=== PATIENT | male | born 1935 | race Two or more races ===

== ENCOUNTER 2020-11-06 15:12 | Inpatient (IN) | payer BC ==
[~2020-11-06] VITALS: Ht 182.9 cm; Wt 86.2 kg
[2020-11-06] VITALS (7 sets, daily range): BP systolic 117–148; BP diastolic 64–96
[~2020-11-06 15:12] MED LIST: LISINOPRIL2.5 MG ORAL
[2020-11-06] MEDS ORDERED: dexAMETHasone 10mg/ml Inj IV ONE (15:15)
--- NOTE | 2020-11-06 15:30 | NUR ---
ED Nurse Note: pt SHLOMO KRYSTAL RA 9 from home for SOB, fevers and body aches x 2 weeks. EMS report that pt is COVID +, pt is noted to be satting at 89-90% on a NRB mask with 15L O2. pt is tachypneic and appears to be lethargic.
--- NOTE | 2020-11-06 15:32 | NUR ---
ED Nurse Note: Xray at bedside.
--- NOTE | 2020-11-06 15:39 | NUR ---
ED Nurse Note: Called RT Isaac for BiPAP and ABG.
--- NOTE | 2020-11-06 15:46 | NUR ---
ED Nurse Note: RT at pt bedside placing pt on bi-pap
[2020-11-06 16:18] LABS: HEMATOCRIT 44.9 % (42.0-52.0); HEMOGLOBIN 14.9 G/DL (14.2-18.0); MEAN CORPUSCULAR VOLUME 92 FL (80-99); PLATELET COUNT 351 K/UL (150-450); RED BLOOD COUNT 4.88 M/UL (4.70-6.10); RED CELL DISTRIBUTION WIDTH 13.5 % (11.6-14.8); WHITE BLOOD COUNT 10.3 K/UL (4.8-10.8)
[2020-11-06 16:20] LABS: BASOPHILS % (AUTO) 0.1 % (0.0-2.0); LYMPHOCYTES % (AUTO) 9.1 % (20.0-45.0); MONOCYTES % (AUTO) 3.7 % (1.0-10.0); NEUTROPHILS % (AUTO) 87.2 % (45.0-75.0)
[2020-11-06 16:28] LABS: CALCIUM 8.3 MG/DL (8.5-10.1); CREATININE 2.1 MG/DL (0.55-1.30)
--- NOTE | 2020-11-06 16:35 | Diagnostic Imaging Report ---
Indication: Shortness of breath Technique: One view of the chest Comparison: none Findings: There is bilateral extensive diffuse interstitial and airspace disease. The heart is enlarged. The pleural spaces are clear. Impression: Bilateral diffuse interstitial and airspace disease. This may represent multifocal infiltrates pneumonia, or could represent pulmonary edema, among many other possibilities. Correlate with clinical findings
[2020-11-06 16:38] LABS: ALBUMIN 1.7 G/DL (3.4-5.0); ALBUMIN/GLOBULIN RATIO 0.3 (1.0-2.7); BILIRUBIN,TOTAL 2.1 MG/DL (0.2-1.0); CKMB 1.9 NG/ML (0.0-3.6)
[2020-11-06 17:00] LABS: BILIRUBIN,DIRECT 1.4 MG/DL (0.0-0.3)
[2020-11-06 17:09] LABS: INR 1.2 (0.9-1.1)
--- NOTE | 2020-11-06 17:27 | Emergency Room Report ---
History of Present Illness General Chief Complaint: Dyspnea/Respdistress Source: Patient, EMS Present Illness HPI This patient is brought in by EMS from home. The patient has had 2 weeks of fatigue, body aches and generalized weakness. He has also developed shortness of breath over the past few days. Patient presents during the COVID-19 pandemic. It is unclear whether this patient has been previously diagnosed with COVID-19. The patient is a poor historian and there is a language barrier. Despite translation it is still difficult to obtain a history from this patient. Allergies: Coded Allergies: No Known Allergies (Unverified , 11/06/20) COVID-19 Screening Contact w/high risk pt: No Experienced COVID-19 symptoms?: Yes COVID-19 Testing performed DOG WARDEN: No Patient History Past Medical History: see triage record, DM, HTN Social History: Denies: smoking, alcohol use, drug use Reviewed Nursing Documentation: PMH: Agreed; PSxH: Agreed Nursing Documentation-PMH Past Medical History: No History, Except For Hx Hypertension: Yes Hx Diabetes: Yes Review of Systems All Other Systems: negative except mentioned in HPI Physical Exam Vital Signs Date Time Temp Pulse Resp B/P (MAP) Pulse Ox O2 Delivery O2 Flow Rate FiO2 11/06/20 15:07 98.2 118 18 130/80 (97) 86 Non-Rebreather 11/06/20 15:49 15.0 11/06/20 15:55 100 Sp02 EP Interpretation: reviewed, abnormal - 85% on NRB General Appearance: no apparent distress, alert, GCS 15, non-toxic Head: normocephalic, atraumatic Eyes: bilateral eye normal inspection ENT: hearing grossly normal, normal pharynx, no angioedema, normal voice Neck: full range of motion, supple/symm/no masses Respiratory: chest non-tender, lungs clear, normal breath sounds, no respiratory distress, no retraction, no accessory muscle use Cardiovascular #1: no edema, tachycardia Gastrointestinal: normal bowel sounds, non tender, soft, non-distended, no guarding, no rebound Rectal: deferred Musculoskeletal: back normal, normal range of motion, gait/station normal, non- tender Neurologic: alert, motor strength/tone normal, oriented x3, sensory intact, r esponsive, speech normal Psychiatric: judgement/insight normal, memory normal, mood/affect normal, no suicidal/homicidal ideation Skin: no rash, normal color Medical Decision Making Diagnostic Impression: Primary Impression: COVID-19 Additional Impressions: Hypoxemia ARDS (adult respiratory distress syndrome) Elevated troponin Renal failure ER Course This patient has COVID-19 adult respiratory distress syndrome. He has pulmonary edema identified on chest x-ray. He is also hypoxemic with oxygen saturations in the mid 80s on room air. He was given BiPAP and responded well with oxygen saturations in the high 90s. He did not require intubation in the emergency department. He was given Decadron IV and Lovenox IM. He will be admitted to the ICU for further management of his COVID-19 infection and pneumonia. The patient's laboratory findings were also consistent with significant dehydration. I suspect the patient is dehydrated given that he has had ongoing illness for the past 2 weeks. Although, aggressive IV fluid resuscitation is not recommended in COVID-19, I did give the patient some gentle IV fluids. This patient is critically ill. This patient required complex medical decision- making, aggressive intervention, extensive laboratory workup and monitoring. Critical care time: 40 minutes. This patient was evaluated in the context of the global COVID-19 pandemic, which necessitated consideration that the patient might be at risk for infection with the [id number] virus that causes COVID-19. Institutional protocols and algorithms that pertain to the evaluation of patients at risk for COVID-19 and the state of rapid change based on information released by multiple regulatory bodies including the CDC and federal and state organizations. These policies and algorithms were followed during the patient's care in the ED. Laboratory Tests Test 11/06/20 15:35 White Blood Count 10.3 K/UL (4.8-10.8) Red Blood Count 4.88 M/UL (4.70-6.10) Hemoglobin 14.9 G/DL (14.2-18.0) Hematocrit 44.9 % (42.0-52.0) Mean Corpuscular Volume 92 FL (80-99) Mean Corpuscular Hemoglobin 30.6 PG (27.0-31.0) Mean Corpuscular Hemoglobin Concent 33.2 G/DL (32.0-36.0) Red Cell Distribution Width 13.5 % (11.6-14.8) Platelet Count 351 K/UL (150-450) Mean Platelet Volume 6.8 FL (6.5-10.1) Neutrophils (%) (Auto) 87.2 % (45.0-75.0) H Lymphocytes (%) (Auto) 9.1 % (20.0-45.0) L Monocytes (%) (Auto) 3.7 % (1.0-10.0) Eosinophils (%) (Auto) 0.0 % (0.0-3.0) Basophils (%) (Auto) 0.1 % (0.0-2.0) Prothrombin Time 12.7 SEC (9.30-11.50) H Prothrombin Time INR 1.2 (0.9-1.1) H Activated Partial Thromboplast Time 30 SEC (23-33) D-Dimer 11.20 mg/L FEU (0.00-0.49) H Sodium Level 142 MMOL/L (136-145) Potassium Level 5.0 MMOL/L (3.5-5.1) Chloride Level 106 MMOL/L (98-107) Carbon Dioxide Level 24 MMOL/L (21-32) Anion Gap 12 mmol/L (5-15) Blood Urea Nitrogen 78 mg/dL (7-18) H Creatinine 2.1 MG/DL (0.55-1.30) H Estimated Glomerular Filtration Rate 30.2 mL/min (>60) Glucose Level 316 MG/DL (74-106) H Lactic Acid Level 4.70 mmol/L (0.4-2.0) H Calcium Level 8.3 MG/DL (8.5-10.1) L Ferritin 1050 NG/ML (8-388) H Total Bilirubin 2.1 MG/DL (0.2-1.0) H Direct Bilirubin 1.4 MG/DL (0.0-0.3) H Aspartate Amino Transferase (AST) 73 U/L (15-37) H Alanine Aminotransferase (ALT) 57 U/L (12-78) Alkaline Phosphatase 246 U/L (46-116) H Lactate Dehydrogenase 383 U/L (81-234) H Total Creatine Kinase 160 U/L (26-308) Creatine Kinase MB 1.9 NG/ML (0.0-3.6) Creatine Kinase MB Relative Index 1.1 Troponin I 0.073 ng/mL (0.000-0.056) C-Reactive Protein, Quantitative 53.4 mg/dL (0.00-0.90) H Pro-B-Type Natriuretic Peptide Pending Total Protein 7.6 G/DL (6.4-8.2) Albumin 1.7 G/DL (3.4-5.0) L Globulin 5.9 g/dL Albumin/Globulin Ratio 0.3 (1.0-2.7) L Lipase 120 U/L (73-393) Microbiology Date/Time Source Procedure Growth Status 11/06/20 15:25 Nasopharynx SARS-CoV-2 RdRp Gene Assay - Final Complete Laboratory Tests Test 11/06/20 15:35 White Blood Count 10.3 K/UL (4.8-10.8) Red Blood Count 4.88 M/UL (4.70-6.10) Hemoglobin 14.9 G/DL (14.2-18.0) Hematocrit 44.9 % (42.0-52.0) Mean Corpuscular Volume 92 FL (80-99) Mean Corpuscular Hemoglobin 30.6 PG (27.0-31.0) Mean Corpuscular Hemoglobin Concent 33.2 G/DL (32.0-36.0) Red Cell Distribution Width 13.5 % (11.6-14.8) Platelet Count 351 K/UL (150-450) Mean Platelet Volume 6.8 FL (6.5-10.1) Neutrophils (%) (Auto) 87.2 % (45.0-75.0) H Lymphocytes (%) (Auto) 9.1 % (20.0-45.0) L Monocytes (%) (Auto) 3.7 % (1.0-10.0) Eosinophils (%) (Auto) 0.0 % (0.0-3.0) Basophils (%) (Auto) 0.1 % (0.0-2.0) Prothrombin Time Pending Prothrombin Time INR Pending Activated Partial Thromboplast Time Pending D-Dimer Pending Sodium Level 142 MMOL/L (136-145) Potassium Level 5.0 MMOL/L (3.5-5.1) Chloride Level 106 MMOL/L (98-107) Carbon Dioxide Level 24 MMOL/L (21-32) Anion Gap 12 mmol/L (5-15) Blood Urea Nitrogen 78 mg/dL (7-18) H Creatinine 2.1 MG/DL (0.55-1.30) H Estimated Glomerular Filtration Rate 30.2 mL/min (>60) Glucose Level 316 MG/DL (74-106) H Lactic Acid Level 4.70 mmol/L (0.4-2.0) H Calcium Level 8.3 MG/DL (8.5-10.1) L Ferritin 1050 NG/ML (8-388) H Total Bilirubin 2.1 MG/DL (0.2-1.0) H Direct Bilirubin 1.4 MG/DL (0.0-0.3) H Aspartate Amino Transferase (AST) 73 U/L (15-37) H Alanine Aminotransferase (ALT) 57 U/L (12-78) Alkaline Phosphatase 246 U/L (46-116) H Lactate Dehydrogenase 383 U/L (81-234) H Total Creatine Kinase 160 U/L (26-308) Creatine Kinase MB 1.9 NG/ML (0.0-3.6) Creatine Kinase MB Relative Index 1.1 Troponin I 0.073 ng/mL (0.000-0.056) C-Reactive Protein, Quantitative Pending Pro-B-Type Natriuretic Peptide Pending Total Protein 7.6 G/DL (6.4-8.2) Albumin 1.7 G/DL (3.4-5.0) L Globulin 5.9 g/dL Albumin/Globulin Ratio 0.3 (1.0-2.7) L Lipase 120 U/L (73-393) Microbiology Date/Time Source Procedure Growth Status 11/06/20 15:25 Nasopharynx SARS-CoV-2 RdRp Gene Assay - Final Complete EKG Diagnostic Results Rate: tachycardiac Rhythm: other - S.tachycardia ST Segments: no acute changes Rhythm Strip Diag. Results EP Interpretation: yes Rate: 110's Rhythm: no PVC's, no ectopy, other - S.tachycardia Chest X-Ray Diagnostic Results Chest X-Ray Diagnostic Results : Chest X-Ray Ordered: Yes # of Views/Limited/Complete: 1 View Indication: Shortness of Breath EP Interpretation: Yes Interpretation: other - Diffuse patchy opacities Impression: Other - Pulmonary edema/diffuse interstitial and airspace disease. Electronically Signed by: Mary Grace Garcia DO Last Vital Signs Date Time Temp Pulse Resp B/P (MAP) Pulse Ox O2 Delivery O2 Flow Rate FiO2 11/06/20 16:26 118 35 146/93 98 Bi-pap 11/06/20 16:03 100 11/06/20 15:59 15.0 11/06/20 15:07 98.2 Disposition: ADMITTED INPATIENT Condition: Critical Referrals: RICHY CANTOR [facility],REFERRING (PCP) Mray Grace Garcia DO Nov 06, 2020 17:27
[2020-11-06] MEDS ORDERED: Azithromycin 500 MG in NS 275 ML IVPB ONE (17:30)
[2020-11-06] MEDS ORDERED: Enoxaparin 100mg Inj SUBQ SCH (17:30)
[2020-11-06] MEDS: Sodium Chloride 550 ML IV SCH ×2 (17:36→20:02)
--- NOTE | 2020-11-06 19:00 | NUR ---
ED Nurse Note: pt appears to be resting in bed, he remains on Bi-Pap at this time, IV fluids and abx infusing per ERMD orders. pt's vital signs stable at this time, HR is 94. will cont to monitor and prepare for admission
[2020-11-06] MEDS ORDERED: Flumazenil 0.5mg/5ml Inj IV PRN (20:00)
[2020-11-06] MEDS ORDERED: Naloxone 0.4mg/ml Inj IVP PRN (20:00)
--- NOTE | 2020-11-06 20:08 | History & Physical ---
History of Present Illness General Date patient seen: Nov 06, 2020 Time patient seen: 20:07 Reason for Hospitalization: Dyspnea/Respdistress Present Illness HPI 84 yo M with PMHX of DM2, HTN, non compliance, ? CKD presented to ER for worsening SOB dyspnea, and general body weakness over the last 2 wks. denied any diarrhea, chest pain or muscle weakness, no sign of body trauma in ED pt was a given IV bolus, hyppxemia in 80s, pt was put on BIPAP and improved and admitted to ICU for further care PMH DM HTN PSH none SHX: smoke x 15 yrs, druink ocaasionally and no ivda Allergies: Coded Allergies: No Known Allergies (Unverified , 11/06/20) COVID-19 Screening Contact w/high risk pt: Yes Experienced COVID-19 symptoms?: Yes Coronavirus symptoms experienc: Fever (T>100.4F or >38C), Fatigue, Shortness of Breath, Cough, Muscle or Body Aches Medication History Scheduled Lisinopril* (Lisinopril*), Unknown Dose ORAL DAILY, (Reported) Patient History Limited by: language barrier, medical condition History Provided By: Patient Healthcare decision maker N Resuscitation status Advanced Directive on File Review of Systems Review of Symptoms General ROS: fever weakness Psychological ROS: no depression or mood changes, no memory loss Ophthalmic ROS: no visual changes or eye irritation ENT ROS: no nasal congestion, hearing loss, dizziness Allergy and Immunology ROS: no allergic symptoms or urticaria Hematological and Lymphatic ROS: no swollen glands, unusual bleeding or bruising Endocrine ROS: no polyuria, polydipsia, weight changes, temperature intolerance Respiratory ROS: shortness of breath, or wheezing Cardiovascular ROS: no chest pain or dyspnea on exertion Gastrointestinal ROS: denies abdominal pain, bright red blood in stool. Musculoskeletal ROS: no myalgias or arthralgias Neurological ROS: no TIA or stroke symptoms Dermatological ROS: no new or changing skin lesions, rashes or pruritis Physical Exam Physical Exam General appearance: alert, cooperative,in dsitress Head: Normocephalic, without obvious abnormality, atraumatic Eyes: conjunctivae/corneas clear. PERRL, EOM's intact. Fundi benign Throat: Lips, mucosa, and tongue normal. Teeth and gums normal Neck: supple, symmetrical, trachea midline, no adenopathy, thyroid: not enlarged, symmetric, no tenderness/mass/nodules, no carotid bruit and no JVD Lungs: clear to auscultation bilaterally Heart: regular rate and rhythm, S1, S2 normal, no murmur, click, rub or gallop Abdomen: soft, non-tender. Bowel sounds normal. No masses, no organomegaly Extremities: extremities normal, atraumatic, no cyanosis or edema Pulses: 2+ Skin: Skin color, texture, turgor normal. No rashes or lesions, no LE edema Neurologic: Grossly normal Last 24 Hour Vital Signs Date Time Temp Pulse Resp B/P (MAP) Pulse Ox O2 Delivery O2 Flow Rate FiO2 11/06/20 19:45 94 28 100 100 11/06/20 18:39 98.2 107 44 129/96 97 Bi-pap 15.0 100 11/06/20 17:38 98.2 106 27 148/79 98 Bi-pap 15.0 100 11/06/20 16:26 118 35 146/93 98 Bi-pap 11/06/20 16:03 98 Bi-pap 100 11/06/20 15:59 113 42 Non-Rebreather 15.0 11/06/20 15:55 109 42 100 100 11/06/20 15:49 113 42 90 Non-Rebreather 15.0 11/06/20 15:07 98.2 118 18 130/80 (97) 86 Non-Rebreather Laboratory Tests Test 11/06/20 15:35 11/06/20 17:10 White Blood Count 10.3 K/UL (4.8-10.8) Red Blood Count 4.88 M/UL (4.70-6.10) Hemoglobin 14.9 G/DL (14.2-18.0) Hematocrit 44.9 % (42.0-52.0) Mean Corpuscular Volume 92 FL (80-99) Mean Corpuscular Hemoglobin 30.6 PG (27.0-31.0) Mean Corpuscular Hemoglobin Concent 33.2 G/DL (32.0-36.0) Red Cell Distribution Width 13.5 % (11.6-14.8) Platelet Count 351 K/UL (150-450) Mean Platelet Volume 6.8 FL (6.5-10.1) Neutrophils (%) (Auto) 87.2 % (45.0-75.0) H Lymphocytes (%) (Auto) 9.1 % (20.0-45.0) L Monocytes (%) (Auto) 3.7 % (1.0-10.0) Eosinophils (%) (Auto) 0.0 % (0.0-3.0) Basophils (%) (Auto) 0.1 % (0.0-2.0) Prothrombin Time 12.7 SEC (9.30-11.50) H Prothromb Time International Ratio 1.2 (0.9-1.1) H Activated Partial Thromboplast Time 30 SEC (23-33) D-Dimer 11.20 mg/L FEU (0.00-0.49) H Sodium Level 142 MMOL/L (136-145) Potassium Level 5.0 MMOL/L (3.5-5.1) Chloride Level 106 MMOL/L (98-107) Carbon Dioxide Level 24 MMOL/L (21-32) Anion Gap 12 mmol/L (5-15) Blood Urea Nitrogen 78 mg/dL (7-18) H Creatinine 2.1 MG/DL (0.55-1.30) H Estimat Glomerular Filtration Rate 30.2 mL/min (>60) Glucose Level 316 MG/DL (74-106) H Hemoglobin A1c Pending Lactic Acid Level 4.70 mmol/L (0.4-2.0) H 3.70 mmol/L (0.66-2.22) H Calcium Level 8.3 MG/DL (8.5-10.1) L Ferritin 1050 NG/ML (8-388) H Total Bilirubin 2.1 MG/DL (0.2-1.0) H Direct Bilirubin 1.4 MG/DL (0.0-0.3) H Aspartate Amino Transf (AST/SGOT) 73 U/L (15-37) H Alanine Aminotransferase (ALT/SGPT) 57 U/L (12-78) Alkaline Phosphatase 246 U/L (46-116) H Lactate Dehydrogenase 383 U/L (81-234) H Total Creatine Kinase 160 U/L (26-308) Creatine Kinase MB 1.9 NG/ML (0.0-3.6) Creatine Kinase MB Relative Index 1.1 Troponin I 0.073 ng/mL (0.000-0.056) C-Reactive Protein, Quantitative 53.4 mg/dL (0.00-0.90) H Pro-B-Type Natriuretic Peptide Pending Total Protein 7.6 G/DL (6.4-8.2) Albumin 1.7 G/DL (3.4-5.0) L Globulin 5.9 g/dL Albumin/Globulin Ratio 0.3 (1.0-2.7) L Lipase 120 U/L (73-393) Microbiology Date/Time Source Procedure Growth Status 11/06/20 18:02 Rectum Received 11/06/20 15:25 Nasopharynx SARS-CoV-2 RdRp Gene Assay - Final Complete Height (Feet): 6 Height (Inches): 1.00 Weight (Pounds): 230 Medications Current Medications Medications (Trade) Dose Ordered Sig/I[place]let Route PRN Reason Start Time Stop Time Status Last Admin Dose Admin Sodium Chloride 550 ml @ 200 mls/hr Q2H45M IV 11/06/20 17:30 12/06/20 17:29 11/06/20 17:36 Assessment/Plan Status: stable, not improved Assessment/Plan: 84 yo M w DM2, HTN, ? CKD admitted for Covid19 PNA with SAMEER # acute hypoxemia Resp failure 2/2 covid PNA requiring BIPAP # Covid PNA # Lactic acid elevation # SAMEER vs. SAMEER on CKD, likely prerenal vs. # Dehydration # Malnutrition #HTN, current normotensive # elevated D dimer # Trop elevated # DM2 uncontrolled Plan - BIPAP - prone as tolerate - s/p IVF bolus in ED, will keep lung dry as much as possible - decadrone 6mg iv daily - azithromycin\ - ISS and levemir 10 start - daily lab - pul consult - renal consult - card consult - lovenox daily for now, consider bid, deferred to Pul - ICU admission - i/o monitor, montilla cath IVF none DVT lovenox, GI prophy w PPI FC MIPS Hospital declaration INPATIENT level of care is warranted for this patient because patient is a 84 yo with severe hypoxemia, and need ICU care. Disposition: Once the patient is stable to leave the hospital, I anticipate the patient will likely be discharged to the following environment, 4 5 days or longer I spent 45 minutes on this patient's case, and 40 minutes was dedicated to counseling and/or care coordination. MIPS (Merit-based Incentive Payment System) Applicable CPT: 57742, 22271 CHECK ALL THAT ARE MET: xMeasure #5 (CHF): All ages. Prescribe MANUEL/ARB upon discharge for patients with left ventricular systolic dysfunction. If not, the reason is clearly documented in the medical chart. x Measure #47 Advance care plan or surrogate decision maker documented in the medical record. x Measure #130 The provider has documented, updated, or reviewed the patients current medication list and has documented it in the patients note. xMeasure #374 (All): Send report to referring provider. Measure #407(Sepsis due to MSSA bacteremia): Age 18+ Patient treated with a beta-lactam antibiotic (Nafcillin, Oxacillin or Cefazolin) as definitive therapy. MEDICAL COMPLEXITY High complexity medical decision making (need 2/3 categories) Problem - need 4 points Acute/new problem with new plan for workup (4 points, 1 max) Acute/new problem without additional workup (3 points, 1 max) Unstable chronic problem actively being managed (2 point each, 2 max) Stable chronic problem actively being managed (1 point each, 2 max) Self-limited/transient process (constipation, muscle ache, etc) (1 point each, 2 max) Data - need 4 points Reviewed labs/imaging studies (1 points, 2 max) Independent review of imaging (EKG, xrays, etc) (2 points, 2 max) Discussed case with consult/other MD/RN (2 points, 2 max) High Risk - qualify if have one of the following: Severe exacerbation of acute problem, acute mental status change, IV narcotics, monitoring drug levels (vancomycin, INR, tacrolimus etc) Anamika Reid D.O. Nov 06, 2020 20:07
[2020-11-06] MEDS ORDERED: Enoxaparin 40mg Inj SUBQ SCH (20:15)
--- NOTE | 2020-11-06 20:34 | NUR ---
ED Nurse Note: report given to LYNDA Rubi
--- NOTE | 2020-11-06 20:45 | NUR ---
NURSE NOTES: Received pt from ER due to hypoxia COVID +, on BIPAP 10/5 back up rate 12 with 100% fio2. AOX4, speaks maltese most of the time, SR-ST low 100sBp stable, 02 sat >95 . Heplock left AC patent to flushes . Will continue to monitor.
[2020-11-06] MEDS ORDERED: Insulin Human Regular 100units/ml 3ml IV SCH (21:00)
[2020-11-06] MEDS: NovoLOG Insulin Flexpen SUBQ SCH (21:51)
--- NOTE | 2020-11-06 22:00 | NUR ---
NURSE NOTES: Jeanette Baeza was here and evaluated pt with orders given.
--- NOTE | 2020-11-06 23:00 | NUR ---
NURSE NOTES: FR 16 montilla cath was inserted with yellowish urine coming out.
--- NOTE | 2020-11-06 23:00 | NUR ---
NURSE NOTES: Had x1 soft grayish stools. Cleaned up pt,
[2020-11-07] VITALS (34 sets, daily range): BP systolic 92–146; BP diastolic 38–82
--- NOTE | 2020-11-07 02:00 | NUR ---
NURSE NOTES: No resp, distress with the BIPAP, dozing on and off , Afebrile.
--- NOTE | 2020-11-07 04:00 | NUR ---
NURSE NOTES: Complete bed bath with bed changed was done.
--- NOTE | 2020-11-07 04:36 | Diagnostic Imaging Report ---
EXAM: XR Chest, 1 View CLINICAL HISTORY: COPD TECHNIQUE: Frontal view of the chest. COMPARISON: Chest x-ray 11/06/2020 FINDINGS: Lungs: Similar-appearing extensive bilateral airspace opacities right greater than left. Pleural space: No pleural effusion. No pneumothorax. Heart: Mildly prominent cardiac silhouette. Bones/joints: Unremarkable. IMPRESSION: Similar-appearing extensive bilateral airspace opacities right greater than left.
[2020-11-07 05:29] LABS: HEMATOCRIT 40.6 % (42.0-52.0); HEMOGLOBIN 13.5 G/DL (14.2-18.0); MEAN CORPUSCULAR VOLUME 94 FL (80-99); PLATELET COUNT 273 K/UL (150-450); RED BLOOD COUNT 4.34 M/UL (4.70-6.10); RED CELL DISTRIBUTION WIDTH 13.7 % (11.6-14.8); WHITE BLOOD COUNT 8.7 K/UL (4.8-10.8)
[2020-11-07 05:49] LABS: CALCIUM 7.9 MG/DL (8.5-10.1); CREATININE 1.9 MG/DL (0.55-1.30); POTASSIUM 5.4 MMOL/L (3.5-5.1)
--- NOTE | 2020-11-07 06:00 | NUR ---
NURSE NOTES: No resp distress noted, VSS
[2020-11-07] MEDS: NovoLOG Insulin Flexpen SUBQ SCH ×4 (06:32→21:14)
--- NOTE | 2020-11-07 07:27 | NUR ---
NURSE HAND-OFF REPORT: Latest Vital Signs: Temperature 98.0 , Pulse 97 , B/P 146 /73 , Respiratory Rate 23 , O2 SAT 95 , Bi-pap, O2 Flow Rate 15.0 . Vital Sign Comment: EKG Rhythm: Sinus Rhythm Rhythm change?: N MD Notified?: - MD Response: Latest Blackwell Fall Score: 35 Fall Risk: Medium Risk Safety Measures: Call light Within Reach, Bed Alarm Zone 1, Side Rails Side Rails x3, Bed position Low and Locked. Fall Precautions: Yellow Socks Yellow Gown Door Sign Patient Fall Education Report given to Janee Garcia RN.
--- NOTE | 2020-11-07 07:28 | NUR ---
NURSE NOTES: Received pt from LYNDA Rubi. Pt lethargic and confused at this time. Pt alert to name. Pt thai speaking. Pt on BIPAP with 100% FiO2 and 97% SpO2. VS stable at this time. Pt NPO due to BiPAP at this time. Pt has DM and his BG is elevated. Will notify . Douglas in place. Light ishmael urine noted. Skin intact. Left antecubital peripheral IV in place and clamped at this time. No IV fluid running. Will ask MD for IV fluid order as pt is NPO. K is 5.4, Mg is 2.6. BUN 95, Creat 1.9, hemoglobin A1C 9.4. Will notify Dr Hong. D-dimer remains elevated. MD aware. Bed in low position with bed alarm on and call light in reach. Will continue to monitor.
--- NOTE | 2020-11-07 07:49 | NUR ---
NURSE NOTES: Left message for Dr Gaspar regarding abnormal lab results. Awaiting call back.
--- NOTE | 2020-11-07 08:24 | Consultation ---
History of Present Illness General Chief Complaint: Dyspnea/Respdistress Reason for Consultation: SAMEER on CKD Present Illness HPI 84 yo M with PMHX of DM2, HTN, non compliance, ? CKD presented to ER for worsening SOB dyspnea, and general body weakness over the last 2 wks. denied any diarrhea, chest pain or muscle weakness, no sign of body trauma in ED pt was a given IV bolus, hyppxemia in 80s, pt was put on BIPAP and improved and admitted to ICU for further care Allergies: Coded Allergies: No Known Allergies (Unverified , 11/06/20) Medication History Scheduled Insulin Glargine (Lantus), 30 UNITS SUBQ BID, (Reported) Lisinopril* (Lisinopril*), Unknown Dose ORAL DAILY, (Reported) Lovastatin (Lovastatin), 20 MG ORAL BEDTIME, (Reported) Patient History Healthcare decision maker N Resuscitation status Advanced Directive on File Review of Systems ROS Narrative Unable to obtain due to clinical condition Physical Exam General Appearance: other - on bipap Lines, tubes and drains: peripheral HEENT: normocephalic, atraumatic Neck: non-tender, normal alignment Respiratory/Chest: chest wall non-tender, rhonchi - bilaterally Cardiovascular/Chest: normal peripheral pulses, normal rate, regular rhythm Abdomen: normal bowel sounds, non tender Neurologic: disoriented Last 24 Hour Vital Signs Date Time Temp Pulse Resp B/P (MAP) Pulse Ox O2 Delivery O2 Flow Rate FiO2 11/07/20 07:00 97 23 146/73 (97) 95 11/07/20 06:00 95 23 133/82 (99) 95 11/07/20 05:00 94 23 133/82 (99) 95 11/07/20 04:00 100 11/07/20 04:00 92 11/07/20 04:00 98.0 91 24 126/62 (83) 97 11/07/20 04:00 Bi-pap 11/07/20 03:30 89 21 98 100 11/07/20 03:00 91 23 126/57 (80) 95 11/07/20 02:00 91 21 124/38 (66) 94 11/07/20 01:00 97 30 133/67 (89) 99 11/07/20 00:00 Bi-pap 11/07/20 00:00 98.2 98 30 132/70 (90) 100 11/07/20 00:00 100 11/07/20 00:00 98 11/06/20 23:30 105 35 95 100 11/06/20 23:00 98 30 138/69 (92) 100 11/06/20 22:11 Bi-Pap 11/06/20 22:03 94 28 100 Bi-Pap 100 11/06/20 22:00 98 31 117/81 (93) 100 11/06/20 21:00 97.7 101 37 131/70 (90) 100 11/06/20 20:50 98.2 101 33 125/64 99 Bi-pap 15.0 100 11/06/20 19:49 98.2 101 33 125/64 99 Bi-pap 15.0 100 11/06/20 19:45 94 28 100 100 11/06/20 18:39 98.2 107 44 129/96 97 Bi-pap 15.0 100 11/06/20 17:38 98.2 106 27 148/79 98 Bi-pap 15.0 100 11/06/20 16:26 118 35 146/93 98 Bi-pap 11/06/20 16:03 98 Bi-pap 100 11/06/20 15:59 113 42 Non-Rebreather 15.0 11/06/20 15:55 109 42 100 100 11/06/20 15:49 113 42 90 Non-Rebreather 15.0 11/06/20 15:07 98.2 118 18 130/80 (97) 86 Non-Rebreather Intake and Output 11/06/20 11/07/20 19:00 07:00 Intake Total 0 ml Balance 0 ml Intake Oral 0 ml # Voids 340 # Bowel Movements 5 Laboratory Tests Test 11/06/20 15:35 11/06/20 17:10 11/06/20 23:35 11/07/20 04:20 White Blood Count 10.3 K/UL (4.8-10.8) 8.7 K/UL (4.8-10.8) Red Blood Count 4.88 M/UL (4.70-6.10) 4.34 M/UL (4.70-6.10) L Hemoglobin 14.9 G/DL (14.2-18.0) 13.5 G/DL (14.2-18.0) L Hematocrit 44.9 % (42.0-52.0) 40.6 % (42.0-52.0) L Mean Corpuscular Volume 92 FL (80-99) 94 FL (80-99) Mean Corpuscular Hemoglobin 30.6 PG (27.0-31.0) 31.1 PG (27.0-31.0) H Mean Corpuscular Hemoglobin Concent 33.2 G/DL (32.0-36.0) 33.2 G/DL (32.0-36.0) Red Cell Distribution Width 13.5 % (11.6-14.8) 13.7 % (11.6-14.8) Platelet Count 351 K/UL (150-450) 273 K/UL (150-450) Mean Platelet Volume 6.8 FL (6.5-10.1) 6.8 FL (6.5-10.1) Neutrophils (%) (Auto) 87.2 % (45.0-75.0) H % (45.0-75.0) Lymphocytes (%) (Auto) 9.1 % (20.0-45.0) L % (20.0-45.0) Monocytes (%) (Auto) 3.7 % (1.0-10.0) % (1.0-10.0) Eosinophils (%) (Auto) 0.0 % (0.0-3.0) % (0.0-3.0) Basophils (%) (Auto) 0.1 % (0.0-2.0) % (0.0-2.0) Prothrombin Time 12.7 SEC (9.30-11.50) H Prothromb Time International Ratio 1.2 (0.9-1.1) H Activated Partial Thromboplast Time 30 SEC (23-33) D-Dimer 11.20 mg/L FEU (0.00-0.49) H 9.35 mg/L FEU (0.00-0.49) H Sodium Level 142 MMOL/L (136-145) 144 MMOL/L (136-145) Potassium Level 5.0 MMOL/L (3.5-5.1) 5.4 MMOL/L (3.5-5.1) H Chloride Level 106 MMOL/L (98-107) 111 MMOL/L (98-107) H Carbon Dioxide Level 24 MMOL/L (21-32) 23 MMOL/L (21-32) Anion Gap 12 mmol/L (5-15) 10 mmol/L (5-15) Blood Urea Nitrogen 78 mg/dL (7-18) H 95 mg/dL (7-18) H Creatinine 2.1 MG/DL (0.55-1.30) H 1.9 MG/DL (0.55-1.30) H Estimat Glomerular Filtration Rate 30.2 mL/min (>60) 33.9 mL/min (>60) Glucose Level 316 MG/DL (74-106) H 359 MG/DL (74-106) H Hemoglobin A1c 9.4 % (4.3-6.0) H Lactic Acid Level 4.70 mmol/L (0.4-2.0) H 3.70 mmol/L (0.66-2.22) H 2.10 mmol/L (0.4-2.0) H 1.70 mmol/L (0.4-2.0) Calcium Level 8.3 MG/DL (8.5-10.1) L 7.9 MG/DL (8.5-10.1) L Ferritin 1050 NG/ML (8-388) H Total Bilirubin 2.1 MG/DL (0.2-1.0) H Direct Bilirubin 1.4 MG/DL (0.0-0.3) H Aspartate Amino Transf (AST/SGOT) 73 U/L (15-37) H Alanine Aminotransferase (ALT/SGPT) 57 U/L (12-78) Alkaline Phosphatase 246 U/L (46-116) H Lactate Dehydrogenase 383 U/L (81-234) H Total Creatine Kinase 160 U/L (26-308) Creatine Kinase MB 1.9 NG/ML (0.0-3.6) Creatine Kinase MB Relative Index 1.1 Troponin I 0.073 ng/mL (0.000-0.056) C-Reactive Protein, Quantitative 53.4 mg/dL (0.00-0.90) H Pro-B-Type Natriuretic Peptide Pending Total Protein 7.6 G/DL (6.4-8.2) Albumin 1.7 G/DL (3.4-5.0) L Globulin 5.9 g/dL Albumin/Globulin Ratio 0.3 (1.0-2.7) L Lipase 120 U/L (73-393) Neutrophils % (Manual) Pending Lymphocytes % (Manual) Pending Platelet Estimate Pending Platelet Morphology Pending Magnesium Level 2.6 MG/DL (1.8-2.4) H Test 11/07/20 05:36 POC Whole Blood Glucose 334 MG/DL (74-106) H Microbiology Date/Time Source Procedure Growth Status 11/06/20 18:02 Rectum Received 11/06/20 15:25 Nasopharynx SARS-CoV-2 RdRp Gene Assay - Final Complete Height (Feet): 6 Height (Inches): 1.00 Weight (Pounds): 190 Medications Current Medications Medications (Trade) Dose Ordered Sig/Violet Route PRN Reason Start Time Stop Time Status Last Admin Dose Admin Azithromycin 500 mg/Dextrose 275 ml @ 275 mls/hr Q24HRS IV 11/07/20 17:00 11/13/20 17:59 Dextrose (Dextrose 50%) 25 ml Q30M PRN IV Hypoglycemia 11/06/20 20:00 02/04/21 19:59 Dextrose (Dextrose 50%) 50 ml Q30M PRN IV Hypoglycemia 11/06/20 20:00 02/04/21 19:59 Enoxaparin Sodium (Lovenox) 40 mg Q24H SUBQ 11/07/20 21:00 02/05/21 20:59 Flumazenil (Romazicon) 0.2 mg NEEDED PRN IV Sedation reversal 11/06/20 20:00 Insulin Aspart (NovoLOG) BEFORE MEALS AND HS SUBQ 11/06/20 21:00 02/04/21 20:59 11/07/20 06:32 Insulin Detemir (Levemir) 10 units BEDTIME SUBQ 11/07/20 21:00 02/05/21 20:59 Naloxone HCl (Narcan) 0.4 mg NEEDED PRN IVP RR less than 6/min 11/06/20 20:00 02/04/21 19:59 Ondansetron HCl (Zofran) 4 mg Q6H PRN IVP Nausea & Vomiting 11/06/20 20:00 12/06/20 19:59 Pantoprazole (Protonix) 40 mg DAILY ORAL 11/06/20 20:00 12/06/20 19:59 Assessment/Plan Diagnosis [facility] I: #SAMEER on CKD- likely pre-renal azotemia in the setting of sepsis #hyperkalemia # acute hypoxemia Resp failure 2/2 covid PNA requiring BIPAP # Covid PNA # Lactic acid elevation # Malnutrition #HTN, current normotensive # elevated D dimer # Trop elevated # DM2 uncontrolled - gentle hydration - on bipap - monitor volume status - insulin - D50 + kayexalate given for hyperK - monitor ABG - monitor BMP, mag and phos daily - strict I&Os - daily weights - echo - defer renal US - antibiotic per ID time spent 65min Kulwant Hong M.D. Nov 07, 2020 08:24
--- NOTE | 2020-11-07 08:25 | Consultation ---
History of Present Illness General Date patient seen: Nov 07, 2020 Time patient seen: 08:21 Chief Complaint: Dyspnea/Respdistress Present Illness HPI 84 yo M with PMHX of DM2, HTN, non compliance, ? CKD presented to ER for worsening SOB dyspnea, and general body weakness over the last 2 wks. denied any diarrhea, chest pain or muscle weakness, no sign of body trauma in ED pt was a given IV bolus, hyppxemia in 80s, pt was put on BIPAP and improved and admitted to ICU for further care. + COVID This morning hyperkalemia and SAMEER on BiPAP Allergies: Coded Allergies: No Known Allergies (Unverified , 11/06/20) Medication History Scheduled Lisinopril* (Lisinopril*), Unknown Dose ORAL DAILY, (Reported) Patient History Healthcare decision maker N Resuscitation status Advanced Directive on File Review of Systems Constitutional: Reports: no symptoms Eye: Reports: no symptoms ENT: Reports: no symptoms Respiratory: Reports: shortness of breath, wheezing, M[place], sputum Cardiovascular: Reports: no symptoms Gastrointestinal: Reports: no symptoms Musculoskeletal: Reports: no symptoms Psychiatric: Reports: no symptoms Neurological: Reports: no symptoms Endocrine: Reports: no symptoms Physical Exam General Appearance: lethargic, moderate distress Lines, tubes and drains: peripheral HEENT: normocephalic, atraumatic, anicteric, mucous membranes moist, PERRL Neck: non-tender, normal alignment, supple, normal inspection Respiratory/Chest: chest wall non-tender, accessory muscle use, crackles/rales, rhonchi - bilaterally, rhonchi - left Cardiovascular/Chest: normal peripheral pulses, normal rate, regular rhythm Abdomen: normal bowel sounds, non tender, soft, no organomegaly, no mass Extremities: normal range of motion, non-tender, normal inspection, no calf tenderness, normal capillary refill Skin Exam: normal pigmentation, warm/dry, cyanotic Neurologic: union organiser II-XII grossly normal, no motor/sensory deficits Last 24 Hour Vital Signs Date Time Temp Pulse Resp B/P (MAP) Pulse Ox O2 Delivery O2 Flow Rate FiO2 11/07/20 07:00 97 23 146/73 (97) 95 11/07/20 06:00 95 23 133/82 (99) 95 11/07/20 05:00 94 23 133/82 (99) 95 11/07/20 04:00 100 11/07/20 04:00 92 11/07/20 04:00 98.0 91 24 126/62 (83) 97 11/07/20 04:00 Bi-pap 11/07/20 03:30 89 21 98 100 11/07/20 03:00 91 23 126/57 (80) 95 11/07/20 02:00 91 21 124/38 (66) 94 11/07/20 01:00 97 30 133/67 (89) 99 11/07/20 00:00 Bi-pap 11/07/20 00:00 98.2 98 30 132/70 (90) 100 11/07/20 00:00 100 11/07/20 00:00 98 11/06/20 23:30 105 35 95 100 11/06/20 23:00 98 30 138/69 (92) 100 11/06/20 22:11 Bi-Pap 11/06/20 22:03 94 28 100 Bi-Pap 100 11/06/20 22:00 98 31 117/81 (93) 100 11/06/20 21:00 97.7 101 37 131/70 (90) 100 11/06/20 20:50 98.2 101 33 125/64 99 Bi-pap 15.0 100 11/06/20 19:49 98.2 101 33 125/64 99 Bi-pap 15.0 100 11/06/20 19:45 94 28 100 100 11/06/20 18:39 98.2 107 44 129/96 97 Bi-pap 15.0 100 11/06/20 17:38 98.2 106 27 148/79 98 Bi-pap 15.0 100 11/06/20 16:26 118 35 146/93 98 Bi-pap 11/06/20 16:03 98 Bi-pap 100 11/06/20 15:59 113 42 Non-Rebreather 15.0 11/06/20 15:55 109 42 100 100 11/06/20 15:49 113 42 90 Non-Rebreather 15.0 11/06/20 15:07 98.2 118 18 130/80 (97) 86 Non-Rebreather Intake and Output 11/06/20 11/07/20 19:00 07:00 Intake Total 0 ml Balance 0 ml Intake Oral 0 ml # Voids 340 # Bowel Movements 5 Laboratory Tests Test 11/06/20 15:35 11/06/20 17:10 11/06/20 23:35 11/07/20 04:20 White Blood Count 10.3 K/UL (4.8-10.8) 8.7 K/UL (4.8-10.8) Red Blood Count 4.88 M/UL (4.70-6.10) 4.34 M/UL (4.70-6.10) L Hemoglobin 14.9 G/DL (14.2-18.0) 13.5 G/DL (14.2-18.0) L Hematocrit 44.9 % (42.0-52.0) 40.6 % (42.0-52.0) L Mean Corpuscular Volume 92 FL (80-99) 94 FL (80-99) Mean Corpuscular Hemoglobin 30.6 PG (27.0-31.0) 31.1 PG (27.0-31.0) H Mean Corpuscular Hemoglobin Concent 33.2 G/DL (32.0-36.0) 33.2 G/DL (32.0-36.0) Red Cell Distribution Width 13.5 % (11.6-14.8) 13.7 % (11.6-14.8) Platelet Count 351 K/UL (150-450) 273 K/UL (150-450) Mean Platelet Volume 6.8 FL (6.5-10.1) 6.8 FL (6.5-10.1) Neutrophils (%) (Auto) 87.2 % (45.0-75.0) H % (45.0-75.0) Lymphocytes (%) (Auto) 9.1 % (20.0-45.0) L % (20.0-45.0) Monocytes (%) (Auto) 3.7 % (1.0-10.0) % (1.0-10.0) Eosinophils (%) (Auto) 0.0 % (0.0-3.0) % (0.0-3.0) Basophils (%) (Auto) 0.1 % (0.0-2.0) % (0.0-2.0) Prothrombin Time 12.7 SEC (9.30-11.50) H Prothromb Time International Ratio 1.2 (0.9-1.1) H Activated Partial Thromboplast Time 30 SEC (23-33) D-Dimer 11.20 mg/L FEU (0.00-0.49) H 9.35 mg/L FEU (0.00-0.49) H Sodium Level 142 MMOL/L (136-145) 144 MMOL/L (136-145) Potassium Level 5.0 MMOL/L (3.5-5.1) 5.4 MMOL/L (3.5-5.1) H Chloride Level 106 MMOL/L (98-107) 111 MMOL/L (98-107) H Carbon Dioxide Level 24 MMOL/L (21-32) 23 MMOL/L (21-32) Anion Gap 12 mmol/L (5-15) 10 mmol/L (5-15) Blood Urea Nitrogen 78 mg/dL (7-18) H 95 mg/dL (7-18) H Creatinine 2.1 MG/DL (0.55-1.30) H 1.9 MG/DL (0.55-1.30) H Estimat Glomerular Filtration Rate 30.2 mL/min (>60) 33.9 mL/min (>60) Glucose Level 316 MG/DL (74-106) H 359 MG/DL (74-106) H Hemoglobin A1c 9.4 % (4.3-6.0) H Lactic Acid Level 4.70 mmol/L (0.4-2.0) H 3.70 mmol/L (0.66-2.22) H 2.10 mmol/L (0.4-2.0) H 1.70 mmol/L (0.4-2.0) Calcium Level 8.3 MG/DL (8.5-10.1) L 7.9 MG/DL (8.5-10.1) L Ferritin 1050 NG/ML (8-388) H Total Bilirubin 2.1 MG/DL (0.2-1.0) H Direct Bilirubin 1.4 MG/DL (0.0-0.3) H Aspartate Amino Transf (AST/SGOT) 73 U/L (15-37) H Alanine Aminotransferase (ALT/SGPT) 57 U/L (12-78) Alkaline Phosphatase 246 U/L (46-116) H Lactate Dehydrogenase 383 U/L (81-234) H Total Creatine Kinase 160 U/L (26-308) Creatine Kinase MB 1.9 NG/ML (0.0-3.6) Creatine Kinase MB Relative Index 1.1 Troponin I 0.073 ng/mL (0.000-0.056) C-Reactive Protein, Quantitative 53.4 mg/dL (0.00-0.90) H Pro-B-Type Natriuretic Peptide Pending Total Protein 7.6 G/DL (6.4-8.2) Albumin 1.7 G/DL (3.4-5.0) L Globulin 5.9 g/dL Albumin/Globulin Ratio 0.3 (1.0-2.7) L Lipase 120 U/L (73-393) Neutrophils % (Manual) Pending Lymphocytes % (Manual) Pending Platelet Estimate Pending Platelet Morphology Pending Magnesium Level 2.6 MG/DL (1.8-2.4) H Test 11/07/20 05:36 POC Whole Blood Glucose 334 MG/DL (74-106) H Microbiology Date/Time Source Procedure Growth Status 11/06/20 18:02 Rectum Received 11/06/20 15:25 Nasopharynx SARS-CoV-2 RdRp Gene Assay - Final Complete Height (Feet): 6 Height (Inches): 1.00 Weight (Pounds): 190 Medications Current Medications Medications (Trade) Dose Ordered Sig/Violet Route PRN Reason Start Time Stop Time Status Last Admin Dose Admin Azithromycin 500 mg/Dextrose 275 ml @ 275 mls/hr Q24HRS IV 11/07/20 17:00 11/13/20 17:59 Dextrose (Dextrose 50%) 25 ml Q30M PRN IV Hypoglycemia 11/06/20 20:00 02/04/21 19:59 Dextrose (Dextrose 50%) 50 ml Q30M PRN IV Hypoglycemia 11/06/20 20:00 02/04/21 19:59 Enoxaparin Sodium (Lovenox) 40 mg Q24H SUBQ 11/07/20 21:00 02/05/21 20:59 Flumazenil (Romazicon) 0.2 mg NEEDED PRN IV Sedation reversal 11/06/20 20:00 Insulin Aspart (NovoLOG) BEFORE MEALS AND HS SUBQ 11/06/20 21:00 02/04/21 20:59 11/07/20 06:32 Insulin Detemir (Levemir) 10 units BEDTIME SUBQ 11/07/20 21:00 02/05/21 20:59 Naloxone HCl (Narcan) 0.4 mg NEEDED PRN IVP RR less than 6/min 11/06/20 20:00 02/04/21 19:59 Ondansetron HCl (Zofran) 4 mg Q6H PRN IVP Nausea & Vomiting 11/06/20 20:00 12/06/20 19:59 Pantoprazole (Protonix) 40 mg DAILY ORAL 11/06/20 20:00 12/06/20 19:59 Assessment/Plan Status: stable Assessment/Plan: ASSESSMENT -COVID -Elevated lactate -Elevated D dimer -HTN -SAMEER -Hyperkalemia -Elevated troponin -Diabetes PLAN: Continue pulmonary toilet BiPAP prn Prone positioning prn Continue decadron Consider remdesivir Insulin gtt Continue lovenox Echocardiogram Trend troponin Rayo Muñoz MD Nov 07, 2020 08:25
[2020-11-07] MEDS ORDERED: Sodium Polystyrene Sulfonate 15gm Powder ORAL ONE (08:45)
[2020-11-07] MEDS ORDERED: Insulin Human Regular 100units/ml 3ml IV ONE (08:45)
--- NOTE | 2020-11-07 08:55 | NUR ---
NURSE NOTES: Pt reported to cough with water overnight. Pt on BiPAP. Unable to give kaexylate by mouth or via NGT at this time due to risk of aspiration. Will notify
--- NOTE | 2020-11-07 09:48 | NUR ---
NURSE NOTES: Left message at Dr Hong office regarding unable to give Kayexalate due to BiPAP use. Awaiting call back.
--- NOTE | 2020-11-07 09:57 | NUR ---
NURSE NOTES: Pt son called for update. Update given. He requested for update from MD. Will follow up.
--- NOTE | 2020-11-07 10:08 | NUR ---
NURSE NOTES: Dr Gaspar rounded on pt. Notified him regarding K of 5.4. Notified him that I could not give the Kayexalate due to BiPAP and pt NPO. He reported that this was fine.
--- NOTE | 2020-11-07 10:11 | NUR ---
NURSE NOTES: Received call back from Dr Hong. Received order for Kayexalate to be given per rectum. Order read back, verified, and placed.
--- NOTE | 2020-11-07 10:36 | NUR ---
JENNIE ZAVALA (SON) [phone] Home:
--- NOTE | 2020-11-07 10:37 | NUR ---
SPRING FITTER HELPER NOTE SW attempted to obtain information from pt. Pt is awake, on bipap and able to make eye contact w/ this SW. However, pt was unable to provide non-verbal signals or information to this SW. SW was able to contact pt's son, Darien Hicks cell:[phone] and home:[phone]. Pt resides w/ family at [address] [place] [address]. Pt has 6 children, one son . Pt was ambulatory w/o DME prior to admission and independent w/ ADLs and IADLs. Per Darien, pt does not have hx of fall, substance abuse/mental health issue. Pt does not have AD/POA. Darien expresses full code. No certified social workers in health care concern/needs expressed by the son.
--- NOTE | 2020-11-07 11:51 | NUR ---
NURSE NOTES: Dr Lucio rounded on the pt. Dr Hong rounded on the pt. No verbal orders received.
[2020-11-07] MEDS ORDERED: Sodium Polystyrene Sulfonate Enema RECTAL SCH (12:00)
--- NOTE | 2020-11-07 13:42 | NUR ---
NURSE NOTES: Pt repeatedly pulled off BiPAP mask causing his SpO2 to drop to 80%. Pt reminded multiple times in amharic and kinyarwanda that he must leave the BiPAP mask on for his safety. Pt confused and unable to comply at this time. Restraints placed on the pt for safety.
--- NOTE | 2020-11-07 15:49 | NUR ---
CASE MANAGEMENT:REVIEW BIBA FROM HOME CC: SOB. FEVER. FATIGUE SI: COVID 19. ARDS. HYPOXIA RENAL FAILURE. ELEVATED TROPONIN 98.2 118 18 130/80 86% ON 15L NON REBREATHER BUN+78 CR+2.1 GLUCOSE+316 TROPONIN(+)0.073 IS: PLACED ON BIPAP IV DECADRON IV AZITHROMYCIN LOVENOX SQ CXR BLOOD CX : TO ICU
--- NOTE | 2020-11-07 16:00 | NUR ---
NURSE NOTES: VS stable. No sign of distress. Pt remains on restraints for removing BiPAP mask and safety and impulsivity. Pt bed bath done at this time. Oral care and repositioning done.
[2020-11-07] MEDS: Azithromycin 500 MG in D5W 275 ML IV SCH (17:20)
[2020-11-07 17:21] LABS: CREATININE 1.9 MG/DL (0.55-1.30); POTASSIUM 4.5 MMOL/L (3.5-5.1)
[2020-11-07] MEDS: dexAMETHasone 10mg/ml Inj IV SCH (18:01)
--- NOTE | 2020-11-07 18:31 | Consultation ---
DATE OF CONSULTATION: 11/07/2020 PULMONARY CONSULTATION HISTORY OF PRESENT ILLNESS: This is an 84-year-old male who is a known hypertensive and diabetic. He is also known to have CKD, came to the hospital with shortness of breath and weakness. He was found to be COVID-19 positive. He was admitted to the ICU. He was given fluids and then placed on a BiPAP. Over night, he has received correction of hyperkalemia and remains on BiPAP. His ABGs have been adequate except for acidosis. PAST MEDICAL HISTORY: Hypertension, diabetes mellitus. PAST SURGICAL HISTORY: None. SOCIAL HISTORY: He has been a smoker. No alcohol or substance abuse reported. HOME MEDICATIONS: Reviewed, reconciled in the chart. REVIEW OF SYSTEMS: Not obtainable. PHYSICAL EXAMINATION: GENERAL: An 84-year-old male. HEENT: Unremarkable. CHEST: Diminished breath sounds bilaterally. HEART: Normal heart sounds. ABDOMEN: Soft. EXTREMITIES: There is edema. VITAL SIGNS: Blood pressure at this time is 120/50, heart rate is 94, respirations are 26, O2 sat 99% on BiPAP. X-ray shows hemoglobin 13.5. Chemistry notable with creatinine of 1.9, sodium 147. ABG 7.34, pCO2 of 41, pO2 of 90. This is on a nonrebreather mask, 100% FiO2. X-ray chest was obtained today, which shows bilateral opacities. IMPRESSION: 1. COVID-19 pneumonia. 2. Diabetes mellitus. 3. Hypertension. 4. Hyperkalemia. 5. CKD. 6. Metabolic acidosis. DISCUSSION: Suggest bicarbonate. Defer to Nephrology. Continue broad-spectrum antibiotics. Continue require to be intubated. Broad-spectrum antibiotics. Blood sugar control, Levemir, Protonix. We will start Decadron. Consider use of remdesivir. We will follow carefully. Rahat Gaspar M.D. DR: CAROL ANN/Doroteo JOB#: [id number] CC:
--- NOTE | 2020-11-07 18:41 | General Progress Note ---
Subjective Allergies: Coded Allergies: No Known Allergies (Unverified , 11/06/20) Subjective Chart reivewed. Patient admitted with COVID pneumonia. On BIPAP. Sats are stable but patient working hard to breathe. Further subjective history unable to obtain due to ALOC ROS: unable to obtain due to ALOC Objective Last 24 Hour Vital Signs Date Time Temp Pulse Resp B/P (MAP) Pulse Ox O2 Delivery O2 Flow Rate FiO2 11/07/20 18:00 100 21 127/58 (81) 98 11/07/20 17:00 106 32 127/59 (81) 98 11/07/20 17:00 95 35 127/59 (81) 97 11/07/20 16:00 Bi-pap 11/07/20 16:00 94 29 124/56 (78) 99 11/07/20 16:00 100 11/07/20 16:00 97.9 11/07/20 16:00 99 11/07/20 15:20 99 32 99 100 11/07/20 15:00 98 28 127/53 (77) 99 11/07/20 14:00 106 36 126/63 (84) 96 11/07/20 13:20 98 32 99 100 11/07/20 13:00 102 27 132/62 (85) 96 11/07/20 12:00 Bi-pap 11/07/20 12:00 102 11/07/20 12:00 97.5 11/07/20 12:00 104 22 138/57 (84) 97 11/07/20 12:00 100 11/07/20 11:20 99 33 97 100 11/07/20 11:00 101 29 126/60 (82) 96 11/07/20 10:00 102 27 137/63 (87) 98 11/07/20 09:15 96 26 99 100 11/07/20 09:00 107 24 137/63 (87) 99 11/07/20 08:00 100 11/07/20 08:00 99 11/07/20 08:00 97.9 11/07/20 08:00 99 26 128/53 (78) 99 11/07/20 08:00 Bi-pap 11/07/20 07:15 95 29 98 100 11/07/20 07:00 97 23 146/73 (97) 95 12/17/20 06:00 95 23 133/82 (99) 95 11/07/20 05:00 94 23 133/82 (99) 95 11/07/20 04:00 100 11/07/20 04:00 92 11/07/20 04:00 98.0 91 24 126/62 (83) 97 11/07/20 04:00 Bi-pap 11/07/20 03:30 89 21 98 100 11/07/20 03:00 91 23 126/57 (80) 95 11/07/20 02:00 91 21 124/38 (66) 94 11/07/20 01:00 97 30 133/67 (89) 99 11/07/20 00:00 Bi-pap 11/07/20 00:00 98.2 98 30 132/70 (90) 100 11/07/20 00:00 100 11/07/20 00:00 98 11/06/20 23:30 105 35 95 100 11/06/20 23:00 98 30 138/69 (92) 100 11/06/20 22:11 Bi-Pap 11/06/20 22:03 94 28 100 Bi-Pap 100 11/06/20 22:00 98 31 117/81 (93) 100 11/06/20 21:00 97.7 101 37 131/70 (90) 100 11/06/20 20:50 98.2 101 33 125/64 99 Bi-pap 15.0 100 11/06/20 19:49 98.2 101 33 125/64 99 Bi-pap 15.0 100 11/06/20 19:45 94 28 100 100 11/06/20 18:39 98.2 107 44 129/96 97 Bi-pap 15.0 100 Intake and Output 11/06/20 11/07/20 19:00 07:00 Intake Total 0 ml Balance 0 ml Intake Oral 0 ml # Voids 340 # Bowel Movements 5 Laboratory Tests 11/06/20 23:35: Lactic Acid Level 2.10H 11/07/20 04:20: Lactic Acid Level 1.70, White Blood Count 8.7, Red Blood Count 4.34L, Hemoglobin 13.5L, Hematocrit 40.6L, Mean Corpuscular Volume 94, Mean Corpuscular Hemoglobin 31.1H, Mean Corpuscular Hemoglobin Concent 33.2, Red Cell Distribution Width 13.7, Platelet Count 273, Mean Platelet Volume 6.8, Neutrophils (%) (Auto) , Lymphocytes (%) (Auto) , Monocytes (%) (Auto) , Eosinophils (%) (Auto) , Basophils (%) (Auto) , Differential Total Cells Counted 100, Neutrophils % (Manual) 90H, Lymphocytes % (Manual) 6L, Monocytes % (Manual) 2, Eosinophils % (Manual) 1, Basophils % (Manual) 0, Band Neutrophils 0, Platelet Estimate Adequate, Platelet Morphology Normal, Red Blood Cell Morphology Normal, D-Dimer 9.35H, Sodium Level 144, Potassium Level 5.4H, Chloride Level 111H, Carbon Dioxide Level 23, Anion Gap 10, Blood Urea Nitrogen 95H, Creatinine 1.9H, Estimat Glomerular Filtration Rate 33.9, Glucose Level 359H, Calcium Level 7.9L, Magnesium Level 2.6H 11/07/20 05:36: POC Whole Blood Glucose 334H 11/07/20 11:34: Arterial Blood pH 7.343L, Arterial Blood Partial Pressure CO2 41.4, Arterial Blood Partial Pressure O2 90.9, Arterial Blood HCO3 22.0, Arterial Blood Oxygen Saturation 95.0, Arterial Blood Base Excess -3.5L, Jonathan Test [Pending] 11/07/20 16:07: POC Whole Blood Glucose 374H 11/07/20 16:50: Sodium Level 147H, Potassium Level 4.5, Chloride Level 115H, Carbon Dioxide Level 26, Anion Gap 6, Blood Urea Nitrogen 109H, Creatinine 1.9H, Estimat Glomerular Filtration Rate 33.9, Glucose Level 387H, Calcium Level 8.0L 11/07/20 17:15: Arterial Blood pH 7.316L, Arterial Blood Partial Pressure CO2 50.5H, Arterial Blood Partial Pressure O2 111.7H, Arterial Blood HCO3 25.2, Arterial Blood Oxygen Saturation 97.3, Arterial Blood Base Excess -1.6, Jonathan Test Positive Height (Feet): 6 Height (Inches): 1.00 Weight (Pounds): 190 Objective Exam limited due to COVID status and to conserve PPE. Per discussion with RN. General: Male A&o x 0 working hard to breathe HEENT: Normocephalic cephalic atraumatic, pupils equal round reactive to light and accommodation, nares patent and no symmetrical, no tonsillar exudates, mucous membranes moist CV: Regular rate regular rhythm, no murmurs, rubs, or gallops Pulm: Lungs coarse breath sounds bilaterally. No wheezes, rhonchi, or rales GI: Soft, nontender, nondistended, bowel sounds present Neuro: CN 2-12 intact bilaterally, no focal signs. Ext: No lower extremity edema bilaterally Skin: no rashes lesions or ulcers Msk: Joints symmetrical in upper extremity and lower extremity bilaterally, no joint swelling. Lymph: No lymphadenopathy in upper extremity and lower extremity Assessment/Plan Status: stable Assessment/Plan: 84 yo M w DM2, HTN, ? CKD admitted for Covid19 PNA with SAMEER # acute hypoxemia Resp failure 2/2 covid PNA requiring BIPAP # Covid PNA # Lactic acid elevation # elevated D dimer # Trop elevated - BIPAP - ABG PRN - Patient full code. See Advanced care plan note. Discussed with family and son as spokesperson who confirmed code status to be full code. Will continue discussions - prone as tolerate - s/p IVF bolus in ED, will keep lung dry as much as possible - decadrone 6mg iv daily - Remdesivir per ID - azithromycin - ISS and levemir 10 start - daily lab - pul consult - ID consult - Cards consult # Malnutrition #HTN, current normotensive # DM2 uncontrolled - insulin gtt # SAMEER vs. SAMEER on CKD, likely prerenal vs. # Dehydration - renal consult - Gentle IV fluids - i/o monitor, montilla cath IVF none DVT lovenox, GI prophy w PPI FC Time of my involvement, the patient's condition was critical with high potential for and/or physiologic deterioration secondary to acute hypoxic respiratory failure as delineated in the note above. On the above date of service, I spent a total of 35 minutes in the ICU evaluating, managing, and providing critical care services to this patient, including time spent documenting these activities, counseling patient/family, and coordinating care. Critical care services performed include: -Telemetry review -Hemodynamic measurement interpretation -Laboratory data review and interpretation -Bipap setting reviewed, management -Discussion of care plans with patient, family, and/or surrogate decision makers -Discussion of patient's care with primary medical team, surgical team, and/or consulting service -Decision to obtain further radiologic evaluation, after consideration of the risk/benefit ratio -CRRT management including evaluation for appropriateness -Review of most recent microbiology results assessment and modification of antimicrobial coverage -Discussion of patient's CODE STATUS and further advancement towards the ultimate goals of care. Plan outlined above discussed with patient/family, KITCHEN MANAGER, ICU team, and involved physician/consultants. Time of note not necessarily time patient was seen Bakari Lucio D.O. Nov 07, 2020 18:41
[2020-11-07] MEDS ORDERED: LANTUS SOL100 UNIT/1 SUBQ (18:47)
[2020-11-07] MEDS ORDERED: LOVASTATIN20 MG ORAL (18:47)
--- NOTE | 2020-11-07 19:00 | NUR ---
NURSE NOTES: Pt son, Darien, called. Update given.
--- NOTE | 2020-11-07 19:30 | NUR ---
NURSE NOTES: Received pt was just succesfully intubated by Dr Augustine 7.5 ETT , taped at Rt corner of pts lip at 25cm . Vent setting AC16 TV 500 PEEP 5 100% fio2, CXR and ABG were ordered., pt SR on the monitor, bp stable afebrile. IVF 1/2 nS at 75ml/hr were started and connected to pts left AC site atraumatic. NPO at this time.Oral caere done.Rectal tube to gravity with with small liquid brownish stools minimal in amt. Douglas to gravity with ishmael yellow urine minimal to moderate in amt. Monitor I and O. Monitor lytes, Will continue to monitor.
--- NOTE | 2020-11-07 19:31 | NUR ---
NURSE NOTES: Dr Augustine came to the unit and reported that Dr Gaspar asked him to intubate the pt. Pt intubated with ET tube 7.5 with 25cm at the lip. Etomidate 20mg given. Succinylcholine 100mg given. Pt tolerated with no sign of distress. Endorsed to notify family.
--- NOTE | 2020-11-07 19:32 | NUR ---
HAND-OFF: Report given to LYNDA Rubi. Endorsed to follow up post extubation. STAT chest x-ray and post intubation ABG ordered.
--- NOTE | 2020-11-07 19:37 | Emergency Room Report ---
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: No Nursing Documentation-PMH Past Medical History: No History, Except For Hx Cardiac Problems: Yes Hx Hypertension: Yes Hx Diabetes: Yes Hx Cancer: No Hx Gastrointestinal Problems: No Hx Neurological Problems: Yes Hx Concentration Difficulty: Yes Hx Fatigue: Yes Hx Neurologic Surgery: No Physical Exam Vital Signs Date Time Temp Pulse Resp B/P (MAP) Pulse Ox O2 Delivery O2 Flow Rate FiO2 11/06/20 15:07 98.2 118 18 130/80 (97) 86 Non-Rebreather 11/06/20 15:49 15.0 11/06/20 15:55 100 Procedures Intubation Intubation : Consent: Emergent Intubation Method: orotracheal Tube Size (cm): 7.5 Breath Sounds after Intubation: equal Post Intubation Xray: Yes Progress/Xray Impression: Tube in appropriate position Attempts: One Patient Tolerated: Well Complications: None Medical Decision Making Diagnostic Impression: Primary Impression: COVID-19 Additional Impressions: ARDS (adult respiratory distress syndrome) Hypoxemia Renal failure Elevated troponin Last Vital Signs Date Time Temp Pulse Resp B/P (MAP) Pulse Ox O2 Delivery O2 Flow Rate FiO2 11/07/20 19:29 86 16 93 Mechanical Ventilator 100 11/07/20 18:00 127/58 (81) 11/07/20 16:00 97.9 11/06/20 20:50 15.0 Disposition: ADMITTED INPATIENT Condition: Critical Referrals: [facility],REFERRING (PCP) Oswaldo Augustine M.D. Nov 07, 2020 19:37
--- NOTE | 2020-11-07 19:59 | NUR ---
NURSE NOTES: Micro called with Gram Positive Cocci. Will alert the primary nurse regarding the results as well as the MD
--- NOTE | 2020-11-07 20:09 | Diagnostic Imaging Report ---
EXAM: XR Chest, 1 View CLINICAL HISTORY: TUBE PLACEMENT TECHNIQUE: Frontal view of the chest. COMPARISON: 11/07/20 at 0346 hours. FINDINGS/IMPRESSION: Interval placement of endotracheal tube. The tip is appropriately positioned, projecting 2.7 cm above the brittany. Extensive bilateral airspace infiltrates again noted, as well as cardiomegaly. .
--- NOTE | 2020-11-07 20:15 | NUR ---
NURSE NOTES: CXR were obtained.at this time.
--- NOTE | 2020-11-07 20:30 | NUR ---
NURSE NOTES: Blood gas was done awaiting for result.
--- NOTE | 2020-11-07 20:45 | NUR ---
NURSE NOTES: Called to Dr Gaspar blood gas result., Spoke to , no changed in vent setting
--- NOTE | 2020-11-07 20:52 | NUR ---
NURSE NOTES: Called DR Gaspar with blood culture result, Gm+ cocci in cluster, spoke to Dr Gaspar with orders Vancomycin pharm to dose.
[2020-11-07] MEDS: propofoL 1,000mg/100ml 100 ML IV SCH (21:11)
--- NOTE | 2020-11-07 21:11 | NUR ---
NURSE NOTES: Triglyceride level were obtained and Diprivan at 5mcg/kg/min were started.
[2020-11-07] MEDS: Enoxaparin 40mg Inj SUBQ SCH (21:15)
[2020-11-07] MEDS: Levemir Flexpen SUBQ SCH (21:15)
--- NOTE | 2020-11-07 21:26 | NUR ---
NURSE NOTES: Pt attained at this time RASS score of -2, keep at 5mcg/kg/min.
[2020-11-07] MEDS ORDERED: Vancomycin 1.5gm/300ml Premix IVPB ONE (22:00)
--- NOTE | 2020-11-07 22:00 | NUR ---
NURSE NOTES: Turned and repositioned for comfort and to avoid further skin breakdown. Bilateral soft wrist restraints maintained for safety to avoid pulling out therapeutic devices.
[2020-11-08] VITALS (40 sets, daily range): BP systolic 90–140; BP diastolic 38–68
--- NOTE | 2020-11-08 00:35 | NUR ---
NURSE NOTES: Started iv on pts Rt hand with G20 angio x1 with good blood return,maintainance ivf transferred to Rt hand, and its been patent.
[2020-11-08 05:47] LABS: HEMATOCRIT 38.3 % (42.0-52.0); HEMOGLOBIN 12.3 G/DL (14.2-18.0); MEAN CORPUSCULAR VOLUME 95 FL (80-99); PLATELET COUNT 255 K/UL (150-450); RED BLOOD COUNT 4.03 M/UL (4.70-6.10); RED CELL DISTRIBUTION WIDTH 13.8 % (11.6-14.8); WHITE BLOOD COUNT 13.1 K/UL (4.8-10.8)
[2020-11-08 06:03] LABS: CALCIUM 7.5 MG/DL (8.5-10.1); CREATININE 2.2 MG/DL (0.55-1.30)
[2020-11-08] MEDS: NovoLOG Insulin Flexpen SUBQ SCH ×3 (06:38→17:23)
--- NOTE | 2020-11-08 07:22 | NUR ---
NURSE HAND-OFF REPORT: Latest Vital Signs: Temperature 98.2 , Pulse 104 , B/P 145 /63 , Respiratory Rate 22 , O2 SAT 97 , Mechanical Ventilator, O2 Flow Rate . Vital Sign Comment: EKG Rhythm: Sinus Rhythm Rhythm change?: N MD Notified?: - MD Response: Latest Blackwell Fall Score: 50 Fall Risk: High Risk Safety Measures: Call light Within Reach, Bed Alarm Zone 1, Side Rails Side Rails x3, Bed position Low and Locked. Fall Precautions: Yellow Socks Yellow Gown Door Sign Patient Fall Education Report given to Paola HOWELL.
--- NOTE | 2020-11-08 07:23 | NUR ---
NURSE NOTES: Received patient in bed. Lightly sedated RASS -2. Orally intubated, mechanical ventilator dependent. OGT inplace, awaiting for placement. On propofol drip at 5mcg for sedation. Bilateral soft wrist restraints inplace. Bed in lowest position. Douglas cath inplace with yellow urine noted in drainage bag by gravity. Rectal tube inplace. Airborne isolation observed. Will continue plan of care.
--- NOTE | 2020-11-08 08:05 | Cardiology Progress Note ---
Assessment/Plan Status: stable Assessment/Plan ASSESSMENT -COVID -Gram positive sepsis -Respiratory failure -Elevated lactate -Elevated D dimer -HTN -SAMEER -Hyperkalemia -Elevated troponin -Diabetes PLAN: Continue pulmonary toilet, vent per ICU/pulmonary Prone positioning prn Continue decadron Consider remdesivir Insulin gtt Continue lovenox Echocardiogram pending Trend troponin Hold blood pressure medications Critical care services performed include: 35 minutes -Telemetry review -Hemodynamic measurement interpretation -Laboratory data review and interpretation -Bipap setting reviewed, management -Discussion of care plans with patient, family, and/or surrogate decision makers -Discussion of patient's care with primary medical team, surgical team, and/or consulting service -Decision to obtain further radiologic evaluation, after consideration of the risk/benefit ratio -CRRT management including evaluation for appropriateness -Review of most recent microbiology results assessment and modification of antimicrobial coverage -Discussion of patient's CODE STATUS and further advancement towards the ultimate goals of care. Subjective Cardiovascular: Reports: no symptoms Respiratory: Reports: no symptoms Gastrointestinal/Abdominal: Reports: no symptoms Genitourinary: Reports: no symptoms Subjective Patient intubated last evening, vancomycin started for gram positive cocci. Currently HDS Objective Last 24 Hour Vital Signs Date Time Temp Pulse Resp B/P (MAP) Pulse Ox O2 Delivery O2 Flow Rate FiO2 11/08/20 07:00 99 22 93/46 (62) 97 11/08/20 06:56 22 145/63 Mechanical Ventilator 100 11/08/20 06:00 104 22 136/66 (89) 97 11/08/20 05:56 21 125/65 Mechanical Ventilator 100 11/08/20 05:00 84 22 95/46 (62) 95 11/08/20 04:56 22 133/82 Mechanical Ventilator 100 11/08/20 04:30 87 22 96/49 (65) 96 11/08/20 04:00 89 11/08/20 04:00 98.2 90 21 129/52 (77) 96 11/08/20 04:00 100 11/08/20 04:00 Mechanical Ventilator 11/08/20 03:56 24 126/62 Mechanical Ventilator 100 11/08/20 03:30 99 21 136/68 (90) 96 11/08/20 03:22 98 26 100 11/08/20 03:00 88 20 136/52 (80) 98 11/08/20 02:56 21 136/52 Mechanical Ventilator 100 11/08/20 02:30 88 17 137/52 (80) 98 11/08/20 02:00 79 23 103/60 (74) 96 11/08/20 01:56 22 103/60 Mechanical Ventilator 19.0 100 11/08/20 01:30 79 23 91/43 (59) 96 11/08/20 01:15 80 22 96/44 (61) 96 11/08/20 01:00 80 22 98/47 (64) 97 11/08/20 00:56 23 98/47 Mechanical Ventilator 100 11/08/20 00:30 83 20 127/45 (72) 98 11/08/20 00:00 Mechanical Ventilator 11/08/20 00:00 98.4 79 24 130/62 (84) 97 11/08/20 00:00 100 11/08/20 00:00 85 11/07/20 23:56 23 88/43 Mechanical Ventilator 100 11/07/20 23:45 86 19 137/63 (87) 99 11/07/20 23:44 87 19 100 11/07/20 23:30 87 18 129/57 (81) 98 11/07/20 23:15 79 23 111/60 (77) 97 11/07/20 23:00 82 22 116/48 (70) 99 11/07/20 22:56 23 116/48 Mechanical Ventilator 100 11/07/20 22:45 77 23 92/45 (61) 98 11/07/20 22:42 80 23 107/63 (78) 97 11/07/20 22:30 78 23 94/42 (59) 98 11/07/20 22:15 82 23 112/54 (73) 96 11/07/20 22:00 82 23 114/57 (76) 96 11/07/20 21:56 22 125/58 Mechanical Ventilator 100 11/07/20 21:45 92 20 143/52 (82) 99 11/07/20 21:41 23 114/57 Mechanical Ventilator 100 11/07/20 21:30 85 22 120/62 (81) 97 11/07/20 21:26 21 143/52 Mechanical Ventilator 100 11/07/20 21:15 88 23 118/60 (79) 96 11/07/20 21:11 22 129/55 Mechanical Ventilator 100 11/07/20 21:00 90 22 129/55 (79) 96 11/07/20 20:00 98.0 102 26 144/65 (91) 95 11/07/20 20:00 100 11/07/20 20:00 Mechanical Ventilator 11/07/20 20:00 100 11/07/20 19:29 86 16 93 Mechanical Ventilator 100 11/07/20 19:23 87 16 100 11/07/20 19:00 94 28 125/58 (80) 98 11/07/20 18:00 100 21 127/58 (81) 98 11/07/20 17:00 106 32 127/59 (81) 98 11/07/20 17:00 95 35 127/59 (81) 97 11/07/20 16:00 Bi-pap 11/07/20 16:00 94 29 124/56 (78) 99 11/07/20 16:00 100 11/07/20 16:00 97.9 11/07/20 16:00 99 11/07/20 15:20 99 32 99 100 11/07/20 15:00 98 28 127/53 (77) 99 11/07/20 14:00 106 36 126/63 (84) 96 11/07/20 13:20 98 32 99 100 11/07/20 13:00 102 27 132/62 (85) 96 11/07/20 12:00 Bi-pap 11/07/20 12:00 102 11/07/20 12:00 97.5 11/07/20 12:00 104 22 138/57 (84) 97 11/07/20 12:00 100 11/07/20 11:20 99 33 97 100 11/07/20 11:00 101 29 126/60 (82) 96 11/07/20 10:00 102 27 137/63 (87) 98 11/07/20 09:15 96 26 99 100 11/07/20 09:00 107 24 137/63 (87) 99 General Appearance: no apparent distress, on vent EENT: PERRL/EOMI, normal ENT inspection, TMs normal, pharynx normal Neck: non-tender, normal alignment, supple, normal inspection Rhythm: NSR Cardiovascular: normal peripheral pulses, normal rate Respiratory/Chest: chest wall non-tender, crackles/rales, rhonchi - bilaterally Abdomen: normal bowel sounds, soft, no organomegaly 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, no motor/sensory deficits Intake and Output 11/07/20 11/08/20 19:00 07:00 Intake Total 575.0 ml 931.020 ml Output Total 30 ml Balance 575.0 ml 901.020 ml Intake Oral 0 ml 0 ml IV Total 575.0 ml 931.020 ml Output Stool Total 30 ml # Voids 465 480 # Bowel Movements 1 3 Laboratory Tests Test 11/07/20 11:34 11/07/20 16:07 11/07/20 16:50 11/07/20 17:15 Arterial Blood pH 7.343 (7.350-7.450) 7.316 (7.350-7.450) Arterial Blood Partial Pressure CO2 41.4 mmHg (35.0-45.0) 50.5 mmHg (35.0-45.0) H Arterial Blood Partial Pressure O2 90.9 mmHg (75.0-100.0) 111.7 mmHg (75.0-100.0) H Arterial Blood HCO3 22.0 mmol/L (22.0-26.0) 25.2 mmol/L (22.0-26.0) Arterial Blood Oxygen Saturation 95.0 % (95-100) 97.3 % (95-100) Arterial Blood Base Excess -3.5 (-2-2) L -1.6 (-2-2) Jonathan Test Pending Positive POC Whole Blood Glucose 374 MG/DL (74-106) H Sodium Level 147 MMOL/L (136-145) H Potassium Level 4.5 MMOL/L (3.5-5.1) Chloride Level 115 MMOL/L (98-107) H Carbon Dioxide Level 26 MMOL/L (21-32) Anion Gap 6 mmol/L (5-15) Blood Urea Nitrogen 109 mg/dL (7-18) H Creatinine 1.9 MG/DL (0.55-1.30) H Estimat Glomerular Filtration Rate 33.9 mL/min (>60) Glucose Level 387 MG/DL (74-106) H Calcium Level 8.0 MG/DL (8.5-10.1) L Triglycerides Level 181 MG/DL (30-150) H Test 11/07/20 19:49 11/07/20 20:15 11/08/20 04:30 11/08/20 04:51 POC Whole Blood Glucose 337 MG/DL (74-106) H Pending Arterial Blood pH 7.321 (7.350-7.450) Arterial Blood Partial Pressure CO2 49.9 mmHg (35.0-45.0) H Arterial Blood Partial Pressure O2 101.2 mmHg (75.0-100.0) H Arterial Blood HCO3 25.2 mmol/L (22.0-26.0) Arterial Blood Oxygen Saturation 96.7 % (95-100) Arterial Blood Base Excess -1.4 (-2-2) Jonathan Test Positive White Blood Count 13.1 K/UL (4.8-10.8) #H Red Blood Count 4.03 M/UL (4.70-6.10) L Hemoglobin 12.3 G/DL (14.2-18.0) L Hematocrit 38.3 % (42.0-52.0) L Mean Corpuscular Volume 95 FL (80-99) Mean Corpuscular Hemoglobin 30.5 PG (27.0-31.0) Mean Corpuscular Hemoglobin Concent 32.1 G/DL (32.0-36.0) Red Cell Distribution Width 13.8 % (11.6-14.8) Platelet Count 255 K/UL (150-450) Mean Platelet Volume 6.4 FL (6.5-10.1) L Neutrophils (%) (Auto) % (45.0-75.0) Lymphocytes (%) (Auto) % (20.0-45.0) Monocytes (%) (Auto) % (1.0-10.0) Eosinophils (%) (Auto) % (0.0-3.0) Basophils (%) (Auto) % (0.0-2.0) Neutrophils % (Manual) Pending Lymphocytes % (Manual) Pending Platelet Estimate Pending Platelet Morphology Pending Sodium Level 148 MMOL/L (136-145) H Potassium Level 5.0 MMOL/L (3.5-5.1) Chloride Level 115 MMOL/L (98-107) H Carbon Dioxide Level 26 MMOL/L (21-32) Anion Gap 7 mmol/L (5-15) Blood Urea Nitrogen 114 mg/dL (7-18) H Creatinine 2.2 MG/DL (0.55-1.30) H Estimat Glomerular Filtration Rate 28.7 mL/min (>60) Glucose Level 369 MG/DL (74-106) H Uric Acid 13.2 MG/DL (2.6-7.2) H Calcium Level 7.5 MG/DL (8.5-10.1) L Magnesium Level 2.8 MG/DL (1.8-2.4) H Microbiology Date/Time Source Procedure Growth Status 11/06/20 18:02 Rectum Received 11/06/20 18:02 Nasal Nares MRSA Culture - Final NO METHICILLIN RESISTANT STAPH AUREUS... Complete 11/06/20 15:25 Nasopharynx SARS-CoV-2 RdRp Gene Assay - Final Complete 11/06/20 15:25 Blood Blood Culture - Preliminary Resulted 11/06/20 15:10 Blood Blood Culture - Preliminary NO GROWTH AFTER 24 HOURS Resulted Rayo Muñoz MD Nov 08, 2020 08:05
--- NOTE | 2020-11-08 09:25 | Nephrology Progress Note ---
Assessment/Plan Plan #SAMEER on CKD- likely pre-renal azotemia in the setting of sepsis #hypnatremia # acute hypoxemia Resp failure 2/2 covid PNA requiring BIPAP # Covid PNA # Lactic acid elevation # Malnutrition #HTN, current normotensive # elevated D dimer # Trop elevated # DM2 uncontrolled - gentle hydration- switch to 1/2ns at 75cc/hr - intubated - monitor volume status - monitor ABG - monitor BMP, mag and phos daily - strict I&Os - daily weights - echo - defer renal US - antibiotic per ID time spent 65min Subjective ROS Limited/Unobtainable: Yes Subjective intubated overnight Cr rising sodium 148 IVF switched Objective Objective Last 24 Hour Vital Signs Date Time Temp Pulse Resp B/P (MAP) Pulse Ox O2 Delivery O2 Flow Rate FiO2 11/08/20 09:00 92 18 135/60 (85) 99 11/08/20 08:00 98.5 89 23 96/51 (66) 97 11/08/20 08:00 100 11/08/20 08:00 Mechanical Ventilator 11/08/20 07:56 22 93/46 Mechanical Ventilator 100 11/08/20 07:48 89 11/08/20 07:26 87 23 100 11/08/20 07:00 99 22 93/46 (62) 97 11/08/20 06:56 22 145/63 Mechanical Ventilator 100 11/08/20 06:00 104 22 136/66 (89) 97 11/08/20 05:56 21 125/65 Mechanical Ventilator 100 11/08/20 05:00 84 22 95/46 (62) 95 11/08/20 04:56 22 133/82 Mechanical Ventilator 100 11/08/20 04:30 87 22 96/49 (65) 96 11/08/20 04:00 89 11/08/20 04:00 98.2 90 21 129/52 (77) 96 11/08/20 04:00 100 11/08/20 04:00 Mechanical Ventilator 11/08/20 03:56 24 126/62 Mechanical Ventilator 100 11/08/20 03:30 99 21 136/68 (90) 96 11/08/20 03:22 98 26 100 11/08/20 03:00 88 20 136/52 (80) 98 11/08/20 02:56 21 136/52 Mechanical Ventilator 100 11/08/20 02:30 88 17 137/52 (80) 98 11/08/20 02:00 79 23 103/60 (74) 96 11/08/20 01:56 22 103/60 Mechanical Ventilator 19.0 100 11/08/20 01:30 79 23 91/43 (59) 96 11/08/20 01:15 80 22 96/44 (61) 96 11/08/20 01:00 80 22 98/47 (64) 97 11/08/20 00:56 23 98/47 Mechanical Ventilator 100 11/08/20 00:30 83 20 127/45 (72) 98 11/08/20 00:00 Mechanical Ventilator 11/08/20 00:00 98.4 79 24 130/62 (84) 97 11/08/20 00:00 100 11/08/20 00:00 85 11/07/20 23:56 23 88/43 Mechanical Ventilator 100 11/07/20 23:45 86 19 137/63 (87) 99 11/07/20 23:44 87 19 100 11/07/20 23:30 87 18 129/57 (81) 98 11/07/20 23:15 79 23 111/60 (77) 97 11/07/20 23:00 82 22 116/48 (70) 99 11/07/20 22:56 23 116/48 Mechanical Ventilator 100 11/07/20 22:45 77 23 92/45 (61) 98 11/07/20 22:42 80 23 107/63 (78) 97 11/07/20 22:30 78 23 94/42 (59) 98 11/07/20 22:15 82 23 112/54 (73) 96 11/07/20 22:00 82 23 114/57 (76) 96 11/07/20 21:56 22 125/58 Mechanical Ventilator 100 11/07/20 21:45 92 20 143/52 (82) 99 11/07/20 21:41 23 114/57 Mechanical Ventilator 100 11/07/20 21:30 85 22 120/62 (81) 97 11/07/20 21:26 21 143/52 Mechanical Ventilator 100 11/07/20 21:15 88 23 118/60 (79) 96 11/07/20 21:11 22 129/55 Mechanical Ventilator 100 11/07/20 21:00 90 22 129/55 (79) 96 11/07/20 20:00 98.0 102 26 144/65 (91) 95 11/07/20 20:00 100 11/07/20 20:00 Mechanical Ventilator 11/07/20 20:00 100 11/07/20 19:29 86 16 93 Mechanical Ventilator 100 11/07/20 19:23 87 16 100 11/07/20 19:00 94 28 125/58 (80) 98 11/07/20 18:00 100 21 127/58 (81) 98 11/07/20 17:00 106 32 127/59 (81) 98 11/07/20 17:00 95 35 127/59 (81) 97 11/07/20 16:00 Bi-pap 11/07/20 16:00 94 29 124/56 (78) 99 11/07/20 16:00 100 11/07/20 16:00 97.9 11/07/20 16:00 99 11/07/20 15:20 99 32 99 100 11/07/20 15:00 98 28 127/53 (77) 99 11/07/20 14:00 106 36 126/63 (84) 96 11/07/20 13:20 98 32 99 100 11/07/20 13:00 102 27 132/62 (85) 96 11/07/20 12:00 Bi-pap 11/07/20 12:00 102 11/07/20 12:00 97.5 11/07/20 12:00 104 22 138/57 (84) 97 11/07/20 12:00 100 11/07/20 11:20 99 33 97 100 11/07/20 11:00 101 29 126/60 (82) 96 11/07/20 10:00 102 27 137/63 (87) 98 Intake and Output 11/07/20 11/08/20 19:00 07:00 Intake Total 575.0 ml 931.020 ml Output Total 30 ml Balance 575.0 ml 901.020 ml Intake Oral 0 ml 0 ml IV Total 575.0 ml 931.020 ml Output Stool Total 30 ml # Voids 465 480 # Bowel Movements 1 3 Laboratory Tests 11/07/20 11:34: Arterial Blood pH 7.343L, Arterial Blood Partial Pressure CO2 41.4, Arterial Blood Partial Pressure O2 90.9, Arterial Blood HCO3 22.0, Arterial Blood Oxygen Saturation 95.0, Arterial Blood Base Excess -3.5L, Jonathan Test [Pending] 11/07/20 16:07: POC Whole Blood Glucose 374H 11/07/20 16:50: Sodium Level 147H, Potassium Level 4.5, Chloride Level 115H, Carbon Dioxide Level 26, Anion Gap 6, Blood Urea Nitrogen 109H, Creatinine 1.9H, Estimat Glomerular Filtration Rate 33.9, Glucose Level 387H, Calcium Level 8.0L, Triglycerides Level 181H 11/07/20 17:15: Arterial Blood pH 7.316L, Arterial Blood Partial Pressure CO2 50.5H, Arterial Blood Partial Pressure O2 111.7H, Arterial Blood HCO3 25.2, Arterial Blood Oxygen Saturation 97.3, Arterial Blood Base Excess -1.6, Jonathan Test Positive 11/07/20 19:49: POC Whole Blood Glucose 337H 11/07/20 20:15: Arterial Blood pH 7.321L, Arterial Blood Partial Pressure CO2 49.9H, Arterial Blood Partial Pressure O2 101.2H, Arterial Blood HCO3 25.2, Arterial Blood Oxygen Saturation 96.7, Arterial Blood Base Excess -1.4, Jonathan Test Positive 11/08/20 04:30: White Blood Count 13.1#H, Red Blood Count 4.03L, Hemoglobin 12.3L, Hematocrit 38.3L, Mean Corpuscular Volume 95, Mean Corpuscular Hemoglobin 30.5, Mean Corpuscular Hemoglobin Concent 32.1, Red Cell Distribution Width 13.8, Platelet Count 255, Mean Platelet Volume 6.4L, Neutrophils (%) (Auto) , Lymphocytes (%) (Auto) , Monocytes (%) (Auto) , Eosinophils (%) (Auto) , Basophils (%) (Auto) , Differential Total Cells Counted 100, Neutrophils % (Manual) 97H, Lymphocytes % (Manual) 2L, Monocytes % (Manual) 1, Eosinophils % (Manual) 0, Basophils % (Manual) 0, Band Neutrophils 0, Platelet Estimate Adequate, Platelet Morphology Normal, Red Blood Cell Morphology , Polychromasia 1+, Sodium Level 148H, Potassium Level 5.0, Chloride Level 115H, Carbon Dioxide Level 26, Anion Gap 7, Blood Urea Nitrogen 114H, Creatinine 2.2H, Estimat Glomerular Filtration Rate 28.7, Glucose Level 369H, Uric Acid 13.2H, Calcium Level 7.5L, Magnesium Level 2.8H 11/08/20 04:51: POC Whole Blood Glucose [Pending] Height (Feet): 6 Height (Inches): 1.00 Weight (Pounds): 190 General Appearance: other - intubated EENT: PERRL/EOMI, normal ENT inspection Neck: non-tender, normal alignment Cardiovascular: normal peripheral pulses, tachycardia Respiratory/Chest: chest wall non-tender, rhonchi - bilaterally Abdomen: normal bowel sounds, non tender Extremities: pitting Neurologic: unresponsive Kulwant Hong M.D. Nov 08, 2020 09:25
[2020-11-08] MEDS: Pantoprazole Inj IVP SCH (09:28)
[2020-11-08] MEDS: dexAMETHasone 10mg/ml Inj IV SCH (09:28)
--- NOTE | 2020-11-08 09:35 | NUR ---
NURSE NOTES: Dr. Gaspar at bedside. Aware regarding today's chest xray and ABG result.
--- NOTE | 2020-11-08 09:38 | Pulmonology Progress Note ---
Subjective ROS Limited/Unobtainable: Yes Interval Events: Intubated overnight Constitutional: Reports: no symptoms HEENT: Repors: no symptoms Respiratory: Reports: no symptoms Cardiovascular: Reports: no symptoms Gastrointestinal/Abdominal: Reports: no symptoms Allergies: Coded Allergies: No Known Allergies (Unverified , 11/06/20) Objective Last 24 Hour Vital Signs Date Time Temp Pulse Resp B/P (MAP) Pulse Ox O2 Delivery O2 Flow Rate FiO2 11/08/20 09:00 92 18 135/60 (85) 99 11/08/20 08:00 98.5 89 23 96/51 (66) 97 11/08/20 08:00 100 11/08/20 08:00 Mechanical Ventilator 11/08/20 07:56 22 93/46 Mechanical Ventilator 100 11/08/20 07:48 89 11/08/20 07:26 87 23 100 11/08/20 07:00 99 22 93/46 (62) 97 11/08/20 06:56 22 145/63 Mechanical Ventilator 100 11/08/20 06:00 104 22 136/66 (89) 97 11/08/20 05:56 21 125/65 Mechanical Ventilator 100 11/08/20 05:00 84 22 95/46 (62) 95 11/08/20 04:56 22 133/82 Mechanical Ventilator 100 11/08/20 04:30 87 22 96/49 (65) 96 11/08/20 04:00 89 11/08/20 04:00 98.2 90 21 129/52 (77) 96 11/08/20 04:00 100 11/08/20 04:00 Mechanical Ventilator 11/08/20 03:56 24 126/62 Mechanical Ventilator 100 11/08/20 03:30 99 21 136/68 (90) 96 11/08/20 03:22 98 26 100 11/08/20 03:00 88 20 136/52 (80) 98 11/08/20 02:56 21 136/52 Mechanical Ventilator 100 11/08/20 02:30 88 17 137/52 (80) 98 11/08/20 02:00 79 23 103/60 (74) 96 11/08/20 01:56 22 103/60 Mechanical Ventilator 19.0 100 11/08/20 01:30 79 23 91/43 (59) 96 11/08/20 01:15 80 22 96/44 (61) 96 11/08/20 01:00 80 22 98/47 (64) 97 11/08/20 00:56 23 98/47 Mechanical Ventilator 100 11/08/20 00:30 83 20 127/45 (72) 98 11/08/20 00:00 Mechanical Ventilator 11/08/20 00:00 98.4 79 24 130/62 (84) 97 11/08/20 00:00 100 11/08/20 00:00 85 11/07/20 23:56 23 88/43 Mechanical Ventilator 100 11/07/20 23:45 86 19 137/63 (87) 99 11/07/20 23:44 87 19 100 11/07/20 23:30 87 18 129/57 (81) 98 11/07/20 23:15 79 23 111/60 (77) 97 11/07/20 23:00 82 22 116/48 (70) 99 11/07/20 22:56 23 116/48 Mechanical Ventilator 100 11/07/20 22:45 77 23 92/45 (61) 98 11/07/20 22:42 80 23 107/63 (78) 97 11/07/20 22:30 78 23 94/42 (59) 98 11/07/20 22:15 82 23 112/54 (73) 96 11/07/20 22:00 82 23 114/57 (76) 96 11/07/20 21:56 22 125/58 Mechanical Ventilator 100 11/07/20 21:45 92 20 143/52 (82) 99 11/07/20 21:41 23 114/57 Mechanical Ventilator 100 11/07/20 21:30 85 22 120/62 (81) 97 11/07/20 21:26 21 143/52 Mechanical Ventilator 100 11/07/20 21:15 88 23 118/60 (79) 96 11/07/20 21:11 22 129/55 Mechanical Ventilator 100 11/07/20 21:00 90 22 129/55 (79) 96 11/07/20 20:00 98.0 102 26 144/65 (91) 95 11/07/20 20:00 100 11/07/20 20:00 Mechanical Ventilator 11/07/20 20:00 100 11/07/20 19:29 86 16 93 Mechanical Ventilator 100 11/07/20 19:23 87 16 100 11/07/20 19:00 94 28 125/58 (80) 98 11/07/20 18:00 100 21 127/58 (81) 98 11/07/20 17:00 106 32 127/59 (81) 98 11/07/20 17:00 95 35 127/59 (81) 97 11/07/20 16:00 Bi-pap 11/07/20 16:00 94 29 124/56 (78) 99 11/07/20 16:00 100 11/07/20 16:00 97.9 11/07/20 16:00 99 11/07/20 15:20 99 32 99 100 11/07/20 15:00 98 28 127/53 (77) 99 11/07/20 14:00 106 36 126/63 (84) 96 11/07/20 13:20 98 32 99 100 11/07/20 13:00 102 27 132/62 (85) 96 11/07/20 12:00 Bi-pap 11/07/20 12:00 102 11/07/20 12:00 97.5 11/07/20 12:00 104 22 138/57 (84) 97 11/07/20 12:00 100 11/07/20 11:20 99 33 97 100 11/07/20 11:00 101 29 126/60 (82) 96 11/07/20 10:00 102 27 137/63 (87) 98 Intake and Output 11/07/20 11/08/20 19:00 07:00 Intake Total 575.0 ml 931.020 ml Output Total 30 ml Balance 575.0 ml 901.020 ml Intake Oral 0 ml 0 ml IV Total 575.0 ml 931.020 ml Output Stool Total 30 ml # Voids 465 480 # Bowel Movements 1 3 General Appearance: no acute distress HEENT: normocephalic Respiratory: chest wall non-tender, lungs clear Cardiovascular: normal peripheral pulses, normal rate Abdomen: normal bowel sounds Microbiology Date/Time Source Procedure Growth Status 11/06/20 18:02 Rectum - Final NO CARBAPENEM-RESISTANT ENTEROBACTERI... Complete 11/06/20 18:02 Rectum VRE Culture - Final NO VANCOMYCIN RESISTANT ENTEROCOCCUS ... Complete 11/06/20 18:02 Nasal Nares MRSA Culture - Final NO METHICILLIN RESISTANT STAPH AUREUS... Complete 11/06/20 15:25 Nasopharynx SARS-CoV-2 RdRp Gene Assay - Final Complete 11/06/20 15:25 Blood Blood Culture - Preliminary Resulted 11/06/20 15:10 Blood Blood Culture - Preliminary NO GROWTH AFTER 24 HOURS Resulted Laboratory Tests 11/07/20 11:34: Arterial Blood pH 7.343L, Arterial Blood Partial Pressure CO2 41.4, Arterial Blood Partial Pressure O2 90.9, Arterial Blood HCO3 22.0, Arterial Blood Oxygen Saturation 95.0, Arterial Blood Base Excess -3.5L, Jonathan Test [Pending] 11/07/20 16:07: POC Whole Blood Glucose 374H 11/07/20 16:50: Sodium Level 147H, Potassium Level 4.5, Chloride Level 115H, Carbon Dioxide Level 26, Anion Gap 6, Blood Urea Nitrogen 109H, Creatinine 1.9H, Estimat Glomerular Filtration Rate 33.9, Glucose Level 387H, Calcium Level 8.0L, Triglycerides Level 181H 11/07/20 17:15: Arterial Blood pH 7.316L, Arterial Blood Partial Pressure CO2 50.5H, Arterial Blood Partial Pressure O2 111.7H, Arterial Blood HCO3 25.2, Arterial Blood Oxygen Saturation 97.3, Arterial Blood Base Excess -1.6, Jonathan Test Positive 11/07/20 19:49: POC Whole Blood Glucose 337H 11/07/20 20:15: Arterial Blood pH 7.321L, Arterial Blood Partial Pressure CO2 49.9H, Arterial Blood Partial Pressure O2 101.2H, Arterial Blood HCO3 25.2, Arterial Blood Oxygen Saturation 96.7, Arterial Blood Base Excess -1.4, Jonathan Test Positive 11/08/20 04:30: White Blood Count 13.1#H, Red Blood Count 4.03L, Hemoglobin 12.3L, Hematocrit 38 .3L, Mean Corpuscular Volume 95, Mean Corpuscular Hemoglobin 30.5, Mean Corpuscular Hemoglobin Concent 32.1, Red Cell Distribution Width 13.8, Platelet Count 255, Mean Platelet Volume 6.4L, Neutrophils (%) (Auto) , Lymphocytes (%) (Auto) , Monocytes (%) (Auto) , Eosinophils (%) (Auto) , Basophils (%) (Auto) , Differential Total Cells Counted 100, Neutrophils % (Manual) 97H, Lymphocytes % (Manual) 2L, Monocytes % (Manual) 1, Eosinophils % (Manual) 0, Basophils % (Manual) 0, Band Neutrophils 0, Platelet Estimate Adequate, Platelet Morphology Normal, Red Blood Cell Morphology , Polychromasia 1+, Sodium Level 148H, Potassium Level 5.0, Chloride Level 115H, Carbon Dioxide Level 26, Anion Gap 7, Blood Urea Nitrogen 114H, Creatinine 2.2H, Estimat Glomerular Filtration Rate 28.7, Glucose Level 369H, Uric Acid 13.2H, Calcium Level 7.5L, Magnesium Level 2.8H 11/08/20 04:51: POC Whole Blood Glucose [Pending] 11/08/20 08:50: Arterial Blood pH 7.330L, Arterial Blood Partial Pressure CO2 42.3, Arterial Blood Partial Pressure O2 99.3, Arterial Blood HCO3 21.8L, Arterial Blood Oxygen Saturation 96.8, Arterial Blood Base Excess -4.0L, Jonathan Test Positive Current Medications Medications (Trade) Dose Ordered Sig/Violet Route PRN Reason Start Time Stop Time Status Last Admin Dose Admin Azithromycin 500 mg/Dextrose 275 ml @ 275 mls/hr Q24HRS IV 11/07/20 17:00 11/13/20 17:59 11/07/20 17:20 Dexamethasone Sodium Phosphate (Decadron 10mg/ ml Inj) 6 mg DAILY IV 11/07/20 17:45 11/16/20 09:01 11/08/20 09:28 Dextrose (Dextrose 50%) 25 ml Q30M PRN IV Hypoglycemia 11/06/20 20:00 02/04/21 19:59 Dextrose (Dextrose 50%) 50 ml Q30M PRN IV Hypoglycemia 11/06/20 20:00 02/04/21 19:59 Enoxaparin Sodium (Lovenox) 40 mg Q24H SUBQ 11/07/20 21:00 02/05/21 20:59 11/07/20 21:15 Flumazenil (Romazicon) 0.2 mg NEEDED PRN IV Sedation reversal 11/06/20 20:00 Insulin Aspart (NovoLOG) EVERY 6 HOURS SUBQ 11/08/20 12:00 02/05/21 16:29 Insulin Detemir (Levemir) 10 units BEDTIME SUBQ 11/07/20 21:00 02/05/21 20:59 11/07/20 21:15 Naloxone HCl (Narcan) 0.4 mg NEEDED PRN IVP RR less than 6/min 11/06/20 20:00 02/04/21 19:59 Ondansetron HCl (Zofran) 4 mg Q6H PRN IVP Nausea & Vomiting 11/06/20 20:00 12/06/20 19:59 Pantoprazole (Protonix) 40 mg DAILY IVP 11/08/20 09:00 12/08/20 08:59 11/08/20 09:28 Propofol 100 ml @ 2.585 mls/ hr Q12H IV 11/07/20 20:45 11/09/20 20:44 11/07/20 21:11 Sodium Chloride 1,000 ml @ 75 mls/hr [id number] IV 11/07/20 19:30 12/07/20 19:29 11/08/20 08:45 Vancomycin HCl (Vanco pharmacy to dose) 1 ea DAILY PRN MISC Per rx protocol 11/07/20 21:00 12/07/20 20:59 Assessment/Plan Assessment/Plan IMPRESSION: 1. COVID-19 pneumonia. 2. Diabetes mellitus. 3. Hypertension. 4. Hyperkalemia. 5. CKD. 6. Metabolic acidosis. DISCUSSION: Continue broad-spectrum antibiotics. Continue vent/AC mode Blood sugar control, Continue Decadron. Consider use of remdesivir however has low creatinine clearance. On propofol Check labs and CXR AM Jud Werner Omar Syed MD Nov 08, 2020 09:38
[2020-11-08] MEDS: propofoL 1,000mg/100ml 100 ML IV SCH ×2 (09:47→21:07)
--- NOTE | 2020-11-08 09:47 | NUR ---
RD ASSESSMENT & RECOMMENDATIONS SEE CARE ACTIVITY FOR COMPLETE ASSESSMENT DAILY ESTIMATED NEEDS: Needs based on Critcal care 82.4kg abw 22-28 kcals/kg 7615-8626 total kcals 1.2-2 g protein/kg 99-165 g total protein 20-25/ or per MD mL/kg 0008-4297 total fluid mLs NUTRITION DIAGNOSIS: Swallowing difficulty r/t respiratory status as evidenced by 84 y/o M adm w/ covid++, now orally intubated, NPO. ENTERAL NUTRITION RECOMMENDATIONS: VITAL 1.2 GOAL OF 65ml/hr x24 hrs to provide 1560ml, 1872 kcal, 117g pro, 1265ml free H2O - When hemodynamically stable, rec to start non oral feeds to meet est kcal and pro needs. - Start Vital 1.2 @35ml/hr for 6 hrs, advance as tolerated 10ml/hr q4-6 hrs to goal. - Flush per MD. HOB over 30 degrees ADDITIONAL RECOMMENDATIONS: 1) Maintain calibrated bed scale wts 2) Followed by end, monitor for hypoglycemia while NPO 3) Feed when hemodynamically stable, TF recs as above for critical care, carb control, high pro content to meet est needs 4) Re-evaluate TF w/ change in propofol rate-> current rate w/ TF's do NOT exceed est needs.
--- NOTE | 2020-11-08 10:33 | NUR ---
RADIOLOGY DEPT., CHEST AND ABDOMEN X-RAY FOR ORAL GASTRIC TUBE PLCMT COMPLETED.-P.DYE
--- NOTE | 2020-11-08 10:51 | Diagnostic Imaging Report ---
Indication: Shortness of breath Technique: One view of the chest Comparison: 11/07/2020 Findings: Heart is enlarged. Slightly improved inspiration currently Bilateral interstitial and airspace infiltrates versus edema unchanged. Stable satisfactory endotracheal and orogastric tube positions. Impression: Unchanged, over one day, findings as above.
--- NOTE | 2020-11-08 11:15 | NUR ---
NURSE NOTES: Dr. Macdonald at bedside.
--- NOTE | 2020-11-08 12:15 | Consultation ---
DATE OF CONSULTATION: 11/08/2020 INFECTIOUS DISEASE CONSULTATION CONSULTING PHYSICIAN: Gabby White MD. REFERRING PHYSICIAN: Rahat Gaspar MD. REASON FOR CONSULTATION: COVID-19 pneumonia. HISTORY OF PRESENTING ILLNESS: This is an 84-year-old gentleman with history of diabetes, hypertension, and chronic kidney disease, who comes in with worsening shortness of breath and body aches. He has been admitted to the ICU. He has been intubated and an Infectious Diseases consultation has been obtained for antibiotics. PAST MEDICAL HISTORY: 1. History of diabetes. 2. Hypertension. 3. Chronic kidney disease. SOCIAL HISTORY: He was a smoker. He drinks alcohol. No history of drug use. FAMILY HISTORY: Unknown. REVIEW OF SYSTEMS: Unable to obtain currently. MEDICATIONS: As an inpatient, he is on azithromycin, dexamethasone, flumazenil, insulin, naloxone, Zofran, Protonix, propofol, and IV vancomycin. ALLERGIES: No known drug allergies. PHYSICAL EXAMINATION: VITAL SIGNS: Temperature 98.5, T-max of 98.5, pulse of 102, respiratory rate 20, blood pressure 136/56. O2 saturation of 98% on 100% FiO2. Examination deferred due to COVID-19. LABORATORY DATA: Sodium 148, potassium 5, chloride 115, bicarb 26, BUN 114, creatinine 2.2, glucose 369. Calcium of 7.5. White count of 13.1, hemoglobin 12.3, hematocrit 38.3, MCV 95, platelet count of 255,000. Neutrophils of 97%. Blood cultures growing gram-positive cocci in clusters. COVID-19 test is positive. Nasal swab was negative for MRSA. Rectal swab was negative for VRE. Chest x-ray showing bilateral interstitial and airspace infiltrates versus edema. ASSESSMENT: This is an 84-year-old gentleman with history of diabetes, hypertension, and renal failure, who comes in with shortness of breath and is found to have, 1. COVID-19 pneumonia. 2. Gram-positive sepsis. 3. Respiratory failure. 4. Diabetes. 5. Hypertension. 6. Renal failure. PLAN: 1. Start remdesivir. Benefits outweigh the risks. 2. Discontinue dexamethasone. 3. Start Solu-Medrol. 4. Continue IV vancomycin. 5. We will start the patient on Zosyn. 6. Continue isolation. I would like to thank Dr. Gaspar for this consultation. Gabby White M.D. DR: EDNA JOB#: [id number] CC:
[2020-11-08] MEDS: Solu-MEDROL 40mg Inj IVP SCH ×2 (12:22→20:40)
--- NOTE | 2020-11-08 13:00 | NUR ---
NURSE NOTES: Oral care provided.
[2020-11-08] MEDS: Piperacillin/Tazobactam 3.375 GM in NS 110 ML IVPB SCH ×2 (13:58→20:40)
[2020-11-08] MEDS ORDERED: Loading Dose:Remdesivir 200mg/NS 210ml IV SCH ×2 (14:00)
--- NOTE | 2020-11-08 14:00 | NUR ---
NURSE NOTES: Turned and repositioned by 2 staff. Noted patient trying to reach ET tube while restraints are removed during turning and repositioning.
--- NOTE | 2020-11-08 15:22 | Diagnostic Imaging Report ---
Indication: Post nasogastric tube placement Technique: Supine view of the upper abdomen Comparison: none Findings: Unremarkable bowel gas pattern. Nasogastric tube has its tip at the level of the gastric antrum. Impression: Satisfactory nasogastric tube placement
--- NOTE | 2020-11-08 15:49 | NUR ---
CASE MANAGEMENT:REVIEW 11/18/20 SI: COVID POSITIVE ~ INTUBATED 98.5 94 22 108/46 98% ON VENT SUPPORT W/100% FIO2 WBC+13.1 NA+148 BUN+114 CR+2.2 IS: IV REMDESIVIR Q24 (11/26) IV ZOSYN Q12 IV AZITHROMYCIN Q24 IV SOLUMEDROL Q12 IV PROTONIX QD PROPOFOL GTT IVF@75/HR : ICU STATUS DCP: FROM HOME
--- NOTE | 2020-11-08 16:08 | NUR ---
NURSE NOTES: Dr. Gaspar in the unit. Discussed regarding today's triglyceride level of 170. Patient is on propofol drip. said that it's ok to continue propofol. Will monitor triglyceride level again tomorrow.
[2020-11-08] MEDS: Azithromycin 500 MG in D5W 275 ML IV SCH (16:48)
--- NOTE | 2020-11-08 19:30 | NUR ---
NURSE HAND-OFF REPORT: Latest Vital Signs: Temperature 98.0 , Pulse 100 , B/P 132 /53 , Respiratory Rate 18 , O2 SAT 99 , Mechanical Ventilator, O2 Flow Rate . Vital Sign Comment: On propofol drip at 5mcg/hr EKG Rhythm: Sinus Rhythm Rhythm change?: N Latest Blackwell Fall Score: 50 Fall Risk: High Risk Safety Measures: Call light Within Reach, Bed Alarm Zone 1, Side Rails Side Rails x3, Bed position Low and Locked. Fall Precautions: Yellow Socks Yellow Gown Door Sign Patient Fall Education Report given to Elicia Braswell RN.
--- NOTE | 2020-11-08 19:30 | NUR ---
NURSE NOTES: Received pt orally intubated, sedated with Diprivan drip at5mcg/kg/min, to aatend RASS SCORE-2, calmed and quiet at this time, SR on the monitor Bp stable afebrile. will continue to monitor.
--- NOTE | 2020-11-08 19:41 | General Progress Note ---
Subjective Allergies: Coded Allergies: No Known Allergies (Unverified , 11/06/20) Subjective Patient with worsening CO2 retention and hypoxia not improving. Intubated last night per Pulm. On 100% FiO2. Ac/VC 16/500/100/5. No pressors. Blood cultures positive for S. Aureus. Spoke with son Darien on phone. Long discussion. Updated on current status. Explained father is critically ill. Guarded prognosis. Answered all questions. Darien appreciative ROS: unable to obtain due to ALOC Objective Last 24 Hour Vital Signs Date Time Temp Pulse Resp B/P (MAP) Pulse Ox O2 Delivery O2 Flow Rate FiO2 11/08/20 18:00 75 20 109/38 (61) 100 11/08/20 17:56 21 118/41 Mechanical Ventilator 100 11/08/20 17:30 82 21 118/41 (66) 100 11/08/20 17:00 80 24 91/41 (58) 98 11/08/20 16:56 18 120/44 Mechanical Ventilator 100 11/08/20 16:30 91 18 120/44 (69) 99 11/08/20 16:00 Mechanical Ventilator 11/08/20 16:00 100 11/08/20 16:00 98.0 99 22 116/51 (72) 99 11/08/20 15:56 23 121/50 Mechanical Ventilator 100 11/08/20 15:37 100 11/08/20 15:26 95 20 100 11/08/20 15:00 91 23 121/50 (73) 99 11/08/20 14:56 22 121/55 Mechanical Ventilator 100 11/08/20 14:30 101 22 121/55 (77) 99 11/08/20 14:00 98 23 127/55 (79) 100 11/08/20 13:56 25 108/54 Mechanical Ventilator 100 11/08/20 13:00 84 25 108/54 (72) 98 11/08/20 12:56 21 109/47 Mechanical Ventilator 100 11/08/20 12:30 87 21 109/47 (67) 99 11/08/20 12:00 Mechanical Ventilator 11/08/20 12:00 94 11/08/20 12:00 100 11/08/20 12:00 98.5 90 22 108/46 (66) 98 11/08/20 11:56 22 140/54 Mechanical Ventilator 100 11/08/20 11:42 91 23 100 11/08/20 11:30 96 22 140/54 (82) 99 11/08/20 11:00 102 20 136/56 (82) 98 11/08/20 10:56 22 118/53 Mechanical Ventilator 100 11/08/20 10:00 100 22 118/53 (74) 99 11/08/20 09:56 22 122/54 Mechanical Ventilator 100 11/08/20 09:47 22 122/54 Mechanical Ventilator 100 11/08/20 09:46 22 122/54 Mechanical Ventilator 100 11/08/20 09:30 92 22 122/54 (76) 99 11/08/20 09:00 92 18 135/60 (85) 99 11/08/20 08:56 23 96/51 Mechanical Ventilator 100 11/08/20 08:00 98.5 89 23 96/51 (66) 97 11/08/20 08:00 100 11/08/20 08:00 Mechanical Ventilator 11/08/20 07:56 22 93/46 Mechanical Ventilator 100 11/08/20 07:48 89 11/08/20 07:26 87 23 100 11/08/20 07:00 99 22 93/46 (62) 97 11/08/20 06:56 22 145/63 Mechanical Ventilator 100 11/08/20 06:00 104 22 136/66 (89) 97 11/08/20 05:56 21 125/65 Mechanical Ventilator 100 11/08/20 05:00 84 22 95/46 (62) 95 11/08/20 04:56 22 133/82 Mechanical Ventilator 100 11/08/20 04:30 87 22 96/49 (65) 96 11/08/20 04:00 89 11/08/20 04:00 98.2 90 21 129/52 (77) 96 11/08/20 04:00 100 11/08/20 04:00 Mechanical Ventilator 11/08/20 03:56 24 126/62 Mechanical Ventilator 100 11/08/20 03:30 99 21 136/68 (90) 96 11/08/20 03:22 98 26 100 11/08/20 03:00 88 20 136/52 (80) 98 11/08/20 02:56 21 136/52 Mechanical Ventilator 100 11/08/20 02:30 88 17 137/52 (80) 98 11/08/20 02:00 79 23 103/60 (74) 96 11/08/20 01:56 22 103/60 Mechanical Ventilator 19.0 100 11/08/20 01:30 79 23 91/43 (59) 96 11/08/20 01:15 80 22 96/44 (61) 96 11/08/20 01:00 80 22 98/47 (64) 97 11/08/20 00:56 23 98/47 Mechanical Ventilator 100 11/08/20 00:30 83 20 127/45 (72) 98 11/08/20 00:00 Mechanical Ventilator 11/08/20 00:00 98.4 79 24 130/62 (84) 97 11/08/20 00:00 100 11/08/20 00:00 85 11/07/20 23:56 23 88/43 Mechanical Ventilator 100 11/07/20 23:45 86 19 137/63 (87) 99 11/07/20 23:44 87 19 100 11/07/20 23:30 87 18 129/57 (81) 98 11/07/20 23:15 79 23 111/60 (77) 97 11/07/20 23:00 82 22 116/48 (70) 99 11/07/20 22:56 23 116/48 Mechanical Ventilator 100 11/07/20 22:45 77 23 92/45 (61) 98 11/07/20 22:42 80 23 107/63 (78) 97 11/07/20 22:30 78 23 94/42 (59) 98 11/07/20 22:15 82 23 112/54 (73) 96 11/07/20 22:00 82 23 114/57 (76) 96 11/07/20 21:56 22 125/58 Mechanical Ventilator 100 11/07/20 21:45 92 20 143/52 (82) 99 11/07/20 21:41 23 114/57 Mechanical Ventilator 100 11/07/20 21:30 85 22 120/62 (81) 97 11/07/20 21:26 21 143/52 Mechanical Ventilator 100 11/07/20 21:15 88 23 118/60 (79) 96 11/07/20 21:11 22 129/55 Mechanical Ventilator 100 11/07/20 21:00 90 22 129/55 (79) 96 11/07/20 20:00 98.0 102 26 144/65 (91) 95 11/07/20 20:00 100 11/07/20 20:00 Mechanical Ventilator 11/07/20 20:00 100 Intake and Output 11/07/20 11/08/20 19:00 07:00 Intake Total 575.0 ml 931.020 ml Output Total 30 ml Balance 575.0 ml 901.020 ml Intake Oral 0 ml 0 ml IV Total 575.0 ml 931.020 ml Output Stool Total 30 ml # Voids 465 480 # Bowel Movements 1 3 Laboratory Tests 11/07/20 19:49: POC Whole Blood Glucose 337H 11/07/20 20:15: Arterial Blood pH 7.321L, Arterial Blood Partial Pressure CO2 49.9H, Arterial Blood Partial Pressure O2 101.2H, Arterial Blood HCO3 25.2, Arterial Blood Oxygen Saturation 96.7, Arterial Blood Base Excess -1.4, Jonathan Test Positive 11/08/20 04:30: White Blood Count 13.1#H, Red Blood Count 4.03L, Hemoglobin 12.3L, Hematocrit 38.3L, Mean Corpuscular Volume 95, Mean Corpuscular Hemoglobin 30.5, Mean Corpuscular Hemoglobin Concent 32.1, Red Cell Distribution Width 13.8, Platelet Count 255, Mean Platelet Volume 6.4L, Neutrophils (%) (Auto) , Lymphocytes (%) (Auto) , Monocytes (%) (Auto) , Eosinophils (%) (Auto) , Basophils (%) (Auto) , Differential Total Cells Counted 100, Neutrophils % (Manual) 97H, Lymphocytes % (Manual) 2L, Monocytes % (Manual) 1, Eosinophils % (Manual) 0, Basophils % (Manual) 0, Band Neutrophils 0, Platelet Estimate Adequate, Platelet Morphology Normal, Red Blood Cell Morphology , Polychromasia 1+, Sodium Level 148H, Potassium Level 5.0, Chloride Level 115H, Carbon Dioxide Level 26, Anion Gap 7, Blood Urea Nitrogen 114H, Creatinine 2.2H, Estimat Glomerular Filtration Rate 28.7, Glucose Level 369H, Uric Acid 13.2H, Calcium Level 7.5L, Magnesium Level 2.8H, Triglycerides Level 170H 11/08/20 04:51: POC Whole Blood Glucose [Pending] 11/08/20 08:50: Arterial Blood pH 7.330L, Arterial Blood Partial Pressure CO2 42.3, Arterial Blood Partial Pressure O2 99.3, Arterial Blood HCO3 21.8L, Arterial Blood Oxygen Saturation 96.8, Arterial Blood Base Excess -4.0L, Jonathan Test Positive 11/08/20 18:20: Sodium Level [Pending], Potassium Level [Pending], Chloride Level [Pending], Carbon Dioxide Level [Pending], Blood Urea Nitrogen [Pending], Creatinine [Pending], Estimat Glomerular Filtration Rate [Pending], Glucose Level [Pending], Calcium Level [Pending], Random Vancomycin Level 13.2 Height (Feet): 6 Height (Inches): 1.00 Weight (Pounds): 190 Objective Exam limited due to COVID status and to conserve PPE. Per discussion with RN. General: Male A&o x 0 On ventilator HEENT: Normocephalic cephalic atraumatic, pupils equal round reactive to light and accommodation, nares patent and no symmetrical, no tonsillar exudates, mucous membranes moist CV: Regular rate regular rhythm, no murmurs, rubs, or gallops Pulm: Lungs coarse breath sounds bilaterally. No wheezes, rhonchi, or rales GI: Soft, nontender, nondistended, bowel sounds present Neuro: Moving all extremities Ext: No lower extremity edema bilaterally Skin: no rashes lesions or ulcers Msk: Joints symmetrical in upper extremity and lower extremity bilaterally, no joint swelling. Lymph: No lymphadenopathy in upper extremity and lower extremity Assessment/Plan Status: stable Assessment/Plan: 84 yo M w DM2, HTN, ? CKD admitted for Covid19 PNA with SAMEER # acute hypoxemia Resp failure 2/2 covid PNA > s/p intubation on 11/07/20 # Covid PNA # Lactic acid elevation # elevated D dimer # Trop elevated - Patient full code. See Advanced care plan note. Discussed with family and son as spokesperson who confirmed code status to be full code. Will continue discussions. - s/p IVF bolus in ED, will keep lung dry as much as possible - decadron 6mg iv daily - Remdesivir per ID (11/09 - ) - azithromycin (11/08 - ) - Vancomycin (11/09 - ) - Zosyn (11/09 - ) - Abx per ID - pulm consult - ID consult - Cards consult - trend ABG: reviewed - Continue Ac/VC - propofol for sedation - monitor triglycerides - Wean vent as tolerated - s/p NG tube 11/07 for meds - IV fluids per nephro #Gram + bacteremia suspect from pneumonia #Bilateral superimposed pneumonia - ID consulted: Dr. Harris - Follow surveilance cultures - Vanc per pharm (11/08 - ) - Zosyn (11/08 - ) # Malnutrition #HTN, current normotensive # DM2 uncontrolled - insulin gtt # SAMEER vs. SAMEER on CKD, likely prerenal vs. # Dehydration - renal consult - Gentle IV fluids - i/o monitor, montilla cath FENPPX DVTPPX: lovenox GI PPX: protonix Fluids: per nephro Diet: NPO PT/OT: deferred Code status: Full code Dispo: SNF eventually. Guarded prognosis. Family aware Reason for Continued Hospitalization: Hypoxia Time of my involvement, the patient's condition was critical with high potential for and/or physiologic deterioration secondary to acute hypoxic respiratory failure as delineated in the note above. On the above date of service, I spent a total of 37 minutes in the ICU e valuating, managing, and providing critical care services to this patient, including time spent documenting these activities, counseling patient/family, and coordinating care. Critical care services performed include: -Telemetry review -Hemodynamic measurement interpretation -Laboratory data review and interpretation -Vent setting reviewed, management -Discussion of care plans with patient, family, and/or surrogate decision makers -Discussion of patient's care with primary medical team, surgical team, and/or consulting service -Decision to obtain further radiologic evaluation, after consideration of the risk/benefit ratio -Review of most recent microbiology results assessment and modification of antimicrobial coverage -Discussion of patient's CODE STATUS and further advancement towards the ultimate goals of care. Plan outlined above discussed with patient/family, ASSISTANT CROSS COUNTRY COACH, ICU team, and involved physician/consultants. Time of note not necessarily time patient was seen Bakari Lucio D.O. Nov 08, 2020 19:41
[2020-11-08 19:51] LABS: CALCIUM 7.4 MG/DL (8.5-10.1); CREATININE 2.4 MG/DL (0.55-1.30); POTASSIUM 5.4 MMOL/L (3.5-5.1)
[2020-11-08] MEDS ORDERED: Vancomycin 1.25gm/250ml Premix IVPB ONE (20:00)
[2020-11-08] MEDS: Enoxaparin 40mg Inj SUBQ SCH (20:41)
[2020-11-08] MEDS: Levemir Flexpen SUBQ SCH (21:06)
--- NOTE | 2020-11-08 21:07 | NUR ---
NURSE NOTES: Wasted 66ml of Diprivan drip with discharge specialist Kristi Baeza (Witnessed)
[2020-11-08] MEDS ORDERED: Insulin Human Regular 100units/ml 3ml SUBQ SCH ×2 (22:00→22:09)
--- NOTE | 2020-11-08 22:00 | NUR ---
NURSE NOTES: Aware Dr Hong with pts latest BMP with orders given, pls see result.
[2020-11-09] VITALS (42 sets, daily range): BP systolic 91–148; BP diastolic 39–82
--- NOTE | 2020-11-09 | NUR ---
NURSE NOTES: Turned q 2hrs prn with good skin care done,. Skin remained intact, accucheck with coverage. pls see EMAR
[2020-11-09] MEDS: NovoLOG Insulin Flexpen SUBQ SCH ×6 (00:12→23:51)
--- NOTE | 2020-11-09 02:00 | NUR ---
NURSE NOTES: Suctioned tntk whitish secretions moderate in amt. 02 sat 100%. HOB kept elevated. watch for any resp. diastress.
--- NOTE | 2020-11-09 04:00 | NUR ---
NURSE NOTES: Complete bed bath with bed changed was done,
--- NOTE | 2020-11-09 05:00 | NUR ---
NURSE NOTES: RT hand IV came out , new IV angio cath no. 18 inserted by LYNDA Velasquez with good blood return , Diprivan drip infusing well to pts forearm.
[2020-11-09 06:15] LABS: HEMATOCRIT 36.7 % (42.0-52.0); MEAN CORPUSCULAR VOLUME 95 FL (80-99); PLATELET COUNT 207 K/UL (150-450); RED BLOOD COUNT 3.86 M/UL (4.70-6.10); RED CELL DISTRIBUTION WIDTH 14.1 % (11.6-14.8); WHITE BLOOD COUNT 14.7 K/UL (4.8-10.8)
[2020-11-09 06:42] LABS: ALBUMIN 1.5 G/DL (3.4-5.0); ALBUMIN/GLOBULIN RATIO 0.3 (1.0-2.7); BILIRUBIN,TOTAL 0.7 MG/DL (0.2-1.0); CALCIUM 7.4 MG/DL (8.5-10.1); CREATININE 2.2 MG/DL (0.55-1.30); POTASSIUM 5.2 MMOL/L (3.5-5.1)
[2020-11-09 06:47] LABS: BILIRUBIN,DIRECT 0.4 MG/DL (0.0-0.3)
--- NOTE | 2020-11-09 07:06 | NUR ---
NURSE NOTES: No resp.distress noted, Will continue to monitor.
--- NOTE | 2020-11-09 07:07 | NUR ---
NURSE NOTES: Received patient in bed. Lightly sedated RASS -2. Orally intubated, mechanical ventilator dependent. OGT inplace, kept NPO. On propofol drip at 5mcg for sedation. Bilateral soft wrist restraints inplace. Bed in lowest position. Douglas cath inplace with yellow urine noted in drainage bag by gravity. Rectal tube inplace. Airborne isolation observed. Will continue plan of care.
[2020-11-09] MEDS: Pantoprazole Inj IVP SCH (08:45)
[2020-11-09] MEDS: Solu-MEDROL 40mg Inj IVP SCH ×2 (08:45→20:50)
[2020-11-09] MEDS: Piperacillin/Tazobactam 3.375 GM in NS 110 ML IVPB SCH ×2 (08:45→20:49)
--- NOTE | 2020-11-09 09:00 | NUR ---
NURSE NOTES: Dr. Macdonald at bedside. And said that he will call patient's son for updates.
--- NOTE | 2020-11-09 09:06 | NUR ---
NURSE NOTES: Mechanical ventilator FiO2 decreased to 90%. Will continue to monitor patient.
--- NOTE | 2020-11-09 09:50 | Diagnostic Imaging Report ---
EXAM: XR Chest, 1 View CLINICAL HISTORY: ABN CHST TECHNIQUE: Frontal view of the chest. COMPARISON: Chest radiograph November 08, 2020 FINDINGS/IMPRESSION: Endotracheal tube terminates 4.2 cm above the brittany. Enteric feeding tube terminates in the stomach. EKG leads overlie the patient. Patchy bilateral airspace opacities, which are similar in appearance to November 08, 2020. Trace effusions. No pneumothorax. Cardiomegaly. Calcified aorta.
--- NOTE | 2020-11-09 10:41 | NUR ---
RADIOLOGY DEPT., CHEST X-RAY DONE.-P.DYE
[2020-11-09] MEDS ORDERED: Levemir Flexpen SUBQ SCH (11:00)
--- NOTE | 2020-11-09 11:00 | NUR ---
NURSE NOTES: Oral care provided.
[2020-11-09] MEDS: propofoL 1,000mg/100ml 100 ML IV SCH (11:45)
--- NOTE | 2020-11-09 12:28 | NUR ---
NURSE NOTES: Telephone consent for central line placement obtained from patient's son/katarina thru telephone.
[2020-11-09] MEDS: Levemir Flexpen SUBQ SCH ×2 (12:41→21:06)
[2020-11-09] MEDS ORDERED: DOPamine 400mg/250ml 250 ML IV PRN (13:00)
--- NOTE | 2020-11-09 14:00 | NUR ---
NURSE NOTES: Turned and repositioned patient by 2 staff. Remains with bilateral soft wrist restraints.
[2020-11-09] MEDS: Maintenance Dose:Remdesivir 100mg/NS 230ml x 4 Doses IV SCH ×2 (14:12)
[2020-11-09] MEDS: Azithromycin 500 MG in D5W 275 ML IV SCH (16:38)
--- NOTE | 2020-11-09 16:39 | Pulmonology Progress Note ---
Subjective ROS Limited/Unobtainable: Yes Interval Events: s/p intubated Constitutional: Reports: no symptoms HEENT: Repors: no symptoms Respiratory: Reports: no symptoms Cardiovascular: Reports: no symptoms Gastrointestinal/Abdominal: Reports: no symptoms Allergies: Coded Allergies: No Known Allergies (Unverified , 11/06/20) Objective Last 24 Hour Vital Signs Date Time Temp Pulse Resp B/P (MAP) Pulse Ox O2 Delivery O2 Flow Rate FiO2 11/09/20 15:00 74 18 118/47 (70) 97 11/09/20 14:30 71 17 118/47 (70) 97 11/09/20 14:00 77 18 109/47 (67) 98 11/09/20 13:30 77 16 121/48 (72) 100 11/09/20 13:00 73 18 106/39 (61) 99 11/09/20 12:30 70 18 95/45 (62) 99 11/09/20 12:00 98.9 67 19 99/46 (63) 97 11/09/20 12:00 Mechanical Ventilator 11/09/20 11:45 19 118/50 90 11/09/20 11:44 19 118/50 Mechanical Ventilator 90 11/09/20 11:30 77 19 118/50 (72) 98 11/09/20 11:29 74 11/09/20 11:00 72 19 107/47 (67) 96 11/09/20 10:56 18 113/49 Mechanical Ventilator 90 11/09/20 10:30 78 18 113/49 (70) 96 11/09/20 10:00 78 18 96/82 (87) 98 11/09/20 09:56 19 118/50 Mechanical Ventilator 90 11/09/20 09:30 80 19 118/50 (72) 98 11/09/20 09:06 90 11/09/20 09:00 73 19 114/46 (68) 99 11/09/20 08:56 18 120/54 Mechanical Ventilator 100 11/09/20 08:30 71 18 120/54 (76) 11/09/20 08:01 87 11/09/20 08:00 98.5 78 17 138/51 (80) 11/09/20 08:00 Mechanical Ventilator 11/09/20 08:00 100 11/09/20 07:56 19 91/42 Mechanical Ventilator 100 11/09/20 07:30 69 19 91/42 (58) 11/09/20 07:00 78 18 121/41 (67) 11/09/20 06:56 21 121/41 Mechanical Ventilator 100 11/09/20 06:30 72 17 113/53 (73) 94 11/09/20 06:00 75 20 95/41 (59) 11/09/20 05:56 21 102/55 Mechanical Ventilator 100 11/09/20 05:00 82 20 148/52 (84) 97 11/09/20 04:56 21 130/54 Mechanical Ventilator 100 11/09/20 04:30 79 20 125/54 (77) 97 11/09/20 04:00 Mechanical Ventilator 11/09/20 04:00 98.8 80 17 131/54 (79) 97 11/09/20 04:00 82 11/09/20 04:00 100 11/09/20 03:56 21 135/54 Mechanical Ventilator 100 11/09/20 03:30 78 18 129/49 (75) 100 11/09/20 03:11 81 20 100 11/09/20 03:00 72 18 122/48 (72) 97 11/09/20 02:56 18 129/49 Mechanical Ventilator 100 11/09/20 02:30 76 17 120/46 (70) 100 11/09/20 02:00 82 18 126/53 (77) 99 11/09/20 01:56 17 126/53 Mechanical Ventilator 100 11/09/20 01:30 84 17 129/54 (79) 100 11/09/20 01:00 80 21 95/42 (59) 97 11/09/20 00:56 20 129/54 Mechanical Ventilator 100 11/09/20 00:30 83 20 113/56 (75) 98 11/09/20 00:00 98.4 95 24 132/52 (78) 99 11/09/20 00:00 84 11/09/20 00:00 Mechanical Ventilator 11/09/20 00:00 100 11/08/20 23:56 20 113/56 Mechanical Ventilator 100 11/08/20 23:54 95 20 100 11/08/20 23:30 96 22 137/50 (79) 100 11/08/20 23:00 101 23 136/57 (83) 100 11/08/20 22:56 21 137/50 Mechanical Ventilator 100 11/08/20 22:30 83 18 122/49 (73) 100 11/08/20 22:00 73 21 97/43 (61) 99 11/08/20 21:56 20 122/49 Mechanical Ventilator 100 11/08/20 21:30 78 22 90/40 (57) 99 11/08/20 21:07 21 104/60 Mechanical Ventilator 100 11/08/20 21:00 85 22 97/42 (60) 98 11/08/20 20:56 21 98/40 Mechanical Ventilator 100 11/08/20 20:30 98 19 132/54 (80) 99 11/08/20 20:00 98.6 107 21 136/62 (86) 98 11/08/20 20:00 100 11/08/20 20:00 Mechanical Ventilator 11/08/20 20:00 100 11/08/20 19:56 20 132/54 Mechanical Ventilator 100 11/08/20 19:56 100 19 100 11/08/20 19:00 100 18 132/53 (79) 99 11/08/20 18:56 20 109/38 Mechanical Ventilator 100 11/08/20 18:00 75 20 109/38 (61) 100 20 17:56 21 118/41 Mechanical Ventilator 100 11/08/20 17:30 82 21 118/41 (66) 100 11/08/20 17:00 80 24 91/41 (58) 98 20 16:56 18 120/44 Mechanical Ventilator 100 Intake and Output 11/08/20 11/09/20 19:00 07:00 Intake Total 1387.140 ml 1888.435 ml Output Total 20 ml 10 ml Balance 1367.140 ml 1878.435 ml Intake Oral 0 ml 0 ml IV Total 1387.140 ml 1888.435 ml Output Stool Total 20 ml 10 ml # Voids 380 710 # Bowel Movements 3 3 General Appearance: no acute distress HEENT: normocephalic Respiratory: chest wall non-tender, lungs clear Cardiovascular: normal peripheral pulses, normal rate Abdomen: normal bowel sounds Microbiology Date/Time Source Procedure Growth Status 11/06/20 18:02 Rectum - Final NO CARBAPENEM-RESISTANT ENTEROBACTERI... Complete 11/06/20 18:02 Rectum VRE Culture - Final NO VANCOMYCIN RESISTANT ENTEROCOCCUS ... Complete 11/06/20 18:02 Nasal Nares MRSA Culture - Final NO METHICILLIN RESISTANT STAPH AUREUS... Complete Laboratory Tests 11/08/20 18:20: Sodium Level 150H, Potassium Level 5.4H, Chloride Level 116H, Carbon Dioxide Level 25, Anion Gap 9, Blood Urea Nitrogen 126H, Creatinine 2.4H, Estimat Glomerular Filtration Rate 25.9, Glucose Level 379H, Calcium Level 7.4L, Random Vancomycin Level 13.2 11/09/20 00:07: POC Whole Blood Glucose 302H 11/09/20 05:20: Sodium Level 148H, Potassium Level 5.2H, Chloride Level 116H, Carbon Dioxide Level 27, Anion Gap 5, Blood Urea Nitrogen 117H, Creatinine 2.2H, Estimat Glomerular Filtration Rate 28.7, Glucose Level 381H, Calcium Level 7.4L, White Blood Count 14.7H, Red Blood Count 3.86L, Hemoglobin 12.0L, Hematocrit 36.7L, Mean Corpuscular Volume 95, Mean Corpuscular Hemoglobin 31.0, Mean Corpuscular Hemoglobin Concent 32.7, Red Cell Distribution Width 14.1, Platelet Count 207, Mean Platelet Volume 6.5, Neutrophils (%) (Auto) , Lymphocytes (%) (Auto) , Monocytes (%) (Auto) , Eosinophils (%) (Auto) , Basophils (%) (Auto) , Differential Total Cells Counted 100, Neutrophils % (Manual) 93H, Lymphocytes % (Manual) 5L, Monocytes % (Manual) 2, Eosinophils % (Manual) 0, Basophils % (Manual) 0, Band Neutrophils 0, Platelet Estimate Adequate, Platelet Morphology Normal, Anisocytosis 1+, Total Bilirubin 0.7, Direct Bilirubin 0.4H, Aspartate Amino Transf (AST/SGOT) 29, Alanine Aminotransferase (ALT/SGPT) 30, Alkaline Phosphatase 142H, Total Protein 6.3L, Albumin 1.5L, Globulin 4.8, Albumin/Globulin Ratio 0.3L, Triglycerides Level 148 11/09/20 05:45: POC Whole Blood Glucose 336H 11/09/20 08:51: Arterial Blood pH 7.301L, Arterial Blood Partial Pressure CO2 49.2H, Arterial Blood Partial Pressure O2 107.6H, Arterial Blood HCO3 23.7, Arterial Blood Oxygen Saturation 97.3, Arterial Blood Base Excess -3.0L, Jonathan Test Positive Current Medications Medications (Trade) Dose Ordered Sig/Violet Route PRN Reason Start Time Stop Time Status Last Admin Dose Admin Azithromycin 500 mg/Dextrose 275 ml @ 275 mls/hr Q24HRS IV 11/07/20 17:00 11/13/20 17:59 11/08/20 16:48 Dextrose (Dextrose 50%) 25 ml Q30M PRN IV Hypoglycemia 11/06/20 20:00 02/04/21 19:59 Dextrose (Dextrose 50%) 50 ml Q30M PRN IV Hypoglycemia 11/06/20 20:00 02/04/21 19:59 Dopamine HCl/ Dextrose 250 ml @ 0 mls/hr Q24H PRN IV For hypotension 11/09/20 13:00 11/12/20 13:00 Enoxaparin Sodium (Lovenox) 40 mg Q24H SUBQ 11/07/20 21:00 02/05/21 20:59 11/08/20 20:41 Flumazenil (Romazicon) 0.2 mg NEEDED PRN IV Sedation reversal 11/06/20 20:00 Insulin Aspart (NovoLOG) EVERY 6 HOURS SUBQ 11/08/20 12:00 02/05/21 16:29 11/09/20 12:41 Insulin Detemir (Levemir) 10 units EVERY 12 HOURS SUBQ 11/09/20 11:15 02/05/21 20:59 11/09/20 12:41 Methylprednisolone Sodium Succinate (Solu-MEDROL) 40 mg Q12HR IVP 11/08/20 12:00 11/15/20 11:59 11/09/20 08:45 Naloxone HCl (Narcan) 0.4 mg NEEDED PRN IVP RR less than 6/min 11/06/20 20:00 02/04/21 19:59 Ondansetron HCl (Zofran) 4 mg Q6H PRN IVP Nausea & Vomiting 11/06/20 20:00 12/06/20 19:59 Pantoprazole (Protonix) 40 mg DAILY IVP 11/08/20 09:00 12/08/20 08:59 11/09/20 08:45 Piperacillin Sod/ Tazobactam Sod 3.375 gm/Sodium Chloride 110 ml @ 27.5 mls/hr EVERY 12 HOURS IVPB 11/08/20 13:00 11/13/20 12:59 11/09/20 08:45 Propofol 100 ml @ 2.585 mls/ hr Q12H IV 11/07/20 20:45 11/09/20 20:44 11/09/20 11:45 Remdesivir 100 mg/ Sodium Chloride 250 ml @ 250 mls/hr Q24H IV 11/09/20 14:00 11/12/20 14:59 11/09/20 14:12 Sodium Chloride 1,000 ml @ 75 mls/hr [id number] IV 11/07/20 19:30 12/07/20 19:29 11/09/20 11:46 Vancomycin HCl (Vanco pharmacy to dose) 1 ea DAILY PRN MISC Per rx protocol 11/07/20 21:00 12/07/20 20:59 Assessment/Plan Assessment/Plan IMPRESSION: 1. COVID-19 pneumonia. - started remdesivir per Dr. White - Continue broad-spectrum antibiotics - Continue Decadron. - Continue vent/AC mode - CXR 11/09 Patchy bilateral airspace opacities, which are similar in appearance to 11/08; Trace effusions. - s/p intubation; Central line placement pending; dopamine prn added for hypotension 2. Diabetes mellitus. - Blood sugar control 3. hx of hypertension. 4. Hyperkalemia. 5. CKD. 6. Metabolic acidosis. 7. Bacteremia with S. Aureus The care for this patient was discussed with my supervising physician Time spent for this case was approximately 31 minutes Angelo Wiley Nov 09, 2020 16:39 Rahat Gaspar MD Nov 09, 2020 16:44
[2020-11-09] MEDS ORDERED: Sodium Polystyrene Sulfonate 15gm Powder NG SCH (17:00)
[2020-11-09] MEDS ORDERED: Lidocaine 1% Plain 30 ml INJ SCH (17:30)
--- NOTE | 2020-11-09 17:42 | Nephrology Progress Note ---
Assessment/Plan Plan #SAMEER on CKD- likely pre-renal azotemia in the setting of sepsis #hypnatremia # acute hypoxemia Resp failure 2/2 covid PNA requiring BIPAP # Covid PNA # Lactic acid elevation # Malnutrition #HTN, current normotensive # elevated D dimer # Trop elevated # DM2 uncontrolled - D5W 500cc x1 - kayrexalate 15g x1 - gentle hydration- switch to 1/2ns at 75cc/hr - intubated - monitor volume status - monitor ABG - monitor BMP, mag and phos daily - strict I&Os - daily weights - echo - defer renal US - antibiotic per ID time spent 65min Subjective ROS Limited/Unobtainable: Yes Subjective intubated Cr 2.2 sodium 148 K 5.2 Objective Objective Last 24 Hour Vital Signs Date Time Temp Pulse Resp B/P (MAP) Pulse Ox O2 Delivery O2 Flow Rate FiO2 11/09/20 17:00 83 19 130/55 (80) 98 11/09/20 16:30 79 19 136/57 (83) 95 11/09/20 16:00 97.1 75 21 127/51 (76) 99 11/09/20 16:00 90 11/09/20 16:00 Mechanical Ventilator 11/09/20 15:30 73 18 112/43 (66) 97 11/09/20 15:17 70 11/09/20 15:00 74 18 118/47 (70) 97 11/09/20 14:30 71 17 118/47 (70) 97 11/09/20 14:00 77 18 109/47 (67) 98 11/09/20 13:30 77 16 121/48 (72) 100 11/09/20 13:00 73 18 106/39 (61) 99 11/09/20 12:30 70 18 95/45 (62) 99 11/09/20 12:00 90 11/09/20 12:00 98.9 67 19 99/46 (63) 97 11/09/20 12:00 Mechanical Ventilator 11/09/20 11:45 19 118/50 90 11/09/20 11:44 19 118/50 Mechanical Ventilator 90 11/09/20 11:30 77 19 118/50 (72) 98 11/09/20 11:29 74 11/09/20 11:00 72 19 107/47 (67) 96 11/09/20 10:56 18 113/49 Mechanical Ventilator 90 11/09/20 10:30 78 18 113/49 (70) 96 11/09/20 10:00 78 18 96/82 (87) 98 11/09/20 09:56 19 118/50 Mechanical Ventilator 90 11/09/20 09:30 80 19 118/50 (72) 98 11/09/20 09:06 90 11/09/20 09:00 73 19 114/46 (68) 99 11/09/20 08:56 18 120/54 Mechanical Ventilator 100 11/09/20 08:30 71 18 120/54 (76) 11/09/20 08:01 87 11/09/20 08:00 98.5 78 17 138/51 (80) 11/09/20 08:00 Mechanical Ventilator 11/09/20 08:00 100 11/09/20 07:56 19 91/42 Mechanical Ventilator 100 11/09/20 07:30 69 19 91/42 (58) 11/09/20 07:00 78 18 121/41 (67) 11/09/20 06:56 21 121/41 Mechanical Ventilator 100 11/09/20 06:30 72 17 113/53 (73) 94 11/09/20 06:00 75 20 95/41 (59) 11/09/20 05:56 21 102/55 Mechanical Ventilator 100 11/09/20 05:00 82 20 148/52 (84) 97 11/09/20 04:56 21 130/54 Mechanical Ventilator 100 11/09/20 04:30 79 20 125/54 (77) 97 11/09/20 04:00 Mechanical Ventilator 11/09/20 04:00 98.8 80 17 131/54 (79) 97 11/09/20 04:00 82 11/09/20 04:00 100 11/09/20 03:56 21 135/54 Mechanical Ventilator 100 11/09/20 03:30 78 18 129/49 (75) 100 11/09/20 03:11 81 20 100 11/09/20 03:00 72 18 122/48 (72) 97 11/09/20 02:56 18 129/49 Mechanical Ventilator 100 11/09/20 02:30 76 17 120/46 (70) 100 11/09/20 02:00 82 18 126/53 (77) 99 11/09/20 01:56 17 126/53 Mechanical Ventilator 100 11/09/20 01:30 84 17 129/54 (79) 100 11/09/20 01:00 80 21 95/42 (59) 97 11/09/20 00:56 20 129/54 Mechanical Ventilator 100 11/09/20 00:30 83 20 113/56 (75) 98 11/09/20 00:00 98.4 95 24 132/52 (78) 99 11/09/20 00:00 84 11/09/20 00:00 Mechanical Ventilator 11/09/20 00:00 100 11/08/20 23:56 20 113/56 Mechanical Ventilator 100 11/08/20 23:54 95 20 100 11/08/20 23:30 96 22 137/50 (79) 100 11/08/20 23:00 101 23 136/57 (83) 100 11/08/20 22:56 21 137/50 Mechanical Ventilator 100 11/08/20 22:30 83 18 122/49 (73) 100 11/08/20 22:00 73 21 97/43 (61) 99 11/08/20 21:56 20 122/49 Mechanical Ventilator 100 11/08/20 21:30 78 22 90/40 (57) 99 11/08/20 21:07 21 104/60 Mechanical Ventilator 100 11/08/20 21:00 85 22 97/42 (60) 98 11/08/20 20:56 21 98/40 Mechanical Ventilator 100 11/08/20 20:30 98 19 132/54 (80) 99 11/08/20 20:00 98.6 107 21 136/62 (86) 98 11/08/20 20:00 100 11/08/20 20:00 Mechanical Ventilator 11/08/20 20:00 100 11/08/20 19:56 20 132/54 Mechanical Ventilator 100 11/08/20 19:56 100 19 100 11/08/20 19:00 100 18 132/53 (79) 99 11/08/20 18:56 20 109/38 Mechanical Ventilator 100 11/08/20 18:00 75 20 109/38 (61) 100 11/08/20 17:56 21 118/41 Mechanical Ventilator 100 Intake and Output 11/08/20 11/09/20 19:00 07:00 Intake Total 1387.140 ml 1888.435 ml Output Total 20 ml 10 ml Balance 1367.140 ml 1878.435 ml Intake Oral 0 ml 0 ml IV Total 1387.140 ml 1888.435 ml Output Stool Total 20 ml 10 ml # Voids 380 710 # Bowel Movements 3 3 Laboratory Tests 11/08/20 18:20: Sodium Level 150H, Potassium Level 5.4H, Chloride Level 116H, Carbon Dioxide Level 25, Anion Gap 9, Blood Urea Nitrogen 126H, Creatinine 2.4H, Estimat Glomerular Filtration Rate 25.9, Glucose Level 379H, Calcium Level 7.4L, Random Vancomycin Level 13.2 11/09/20 00:07: POC Whole Blood Glucose 302H 11/09/20 05:20: Sodium Level 148H, Potassium Level 5.2H, Chloride Level 116H, Carbon Dioxide Level 27, Anion Gap 5, Blood Urea Nitrogen 117H, Creatinine 2.2H, Estimat Glomer ular Filtration Rate 28.7, Glucose Level 381H, Calcium Level 7.4L, White Blood Count 14.7H, Red Blood Count 3.86L, Hemoglobin 12.0L, Hematocrit 36.7L, Mean Corpuscular Volume 95, Mean Corpuscular Hemoglobin 31.0, Mean Corpuscular Hemoglobin Concent 32.7, Red Cell Distribution Width 14.1, Platelet Count 207, Mean Platelet Volume 6.5, Neutrophils (%) (Auto) , Lymphocytes (%) (Auto) , M onocytes (%) (Auto) , Eosinophils (%) (Auto) , Basophils (%) (Auto) , Differential Total Cells Counted 100, Neutrophils % (Manual) 93H, Lymphocytes % (Manual) 5L, Monocytes % (Manual) 2, Eosinophils % (Manual) 0, Basophils % (Manual) 0, Band Neutrophils 0, Platelet Estimate Adequate, Platelet Morphology Normal, Anisocytosis 1+, Total Bilirubin 0.7, Direct Bilirubin 0.4H, Aspartate Amino Transf (AST/SGOT) 29, Alanine Aminotransferase (ALT/SGPT) 30, Alkaline Phosphatase 142H, Total Protein 6.3L, Albumin 1.5L, Globulin 4.8, Albumin/Globulin Ratio 0.3L, Triglycerides Level 148 11/09/20 05:45: POC Whole Blood Glucose 336H 11/09/20 08:51: Arterial Blood pH 7.301L, Arterial Blood Partial Pressure CO2 49.2H, Arterial Blood Partial Pressure O2 107.6H, Arterial Blood HCO3 23.7, Arterial Blood Oxygen Saturation 97.3, Arterial Blood Base Excess -3.0L, Jonathan Test Positive Height (Feet): 6 Height (Inches): 1.00 Weight (Pounds): 190 Kulwant Hong M.D. Nov 09, 2020 17:42
--- NOTE | 2020-11-09 18:00 | NUR ---
NURSE NOTES: Dr. Barone inserted central line at patient's bed side.
--- NOTE | 2020-11-09 18:42 | Operative Note - PDOC ---
Operative Note Operative Note Date of Operation/Procedure: Nov 09, 2020 Pre-op Diagnosis: Sepsis, hypotension, critical care Procedure: Right femoral central venous catheter insertion Post-op Diagnosis: same as pre-op Surgeon: Tommie Barone MD Anesthesia: local Specimen: none Complications: none Condition: unstable Fluids: See records Estimated Blood Loss: minimal Drains: none Implant(s) used?: No Indications for Procedure Patient in the intensive care unit intubated on support deteriorating septic leukocytosis abnormal labs requiring antibiotics fluids and potentially pressors. Central venous catheter indicated recommended. Line placed to intensive care unit urgently at the bedside. Description of Procedure Patient was made comfortable in the supine position. The right groin is prepped and draped in same surgical fashion. Local anatomic landmarks identified. Local anesthetic infiltrated. The right femoral vein was cannulated on first stick without complication. Good venous flow identified. Guidewire placed through the needle needle removed. Small skin incision made around the guidewire. A dilator was used and tract was dilated. A triple-lumen catheter was inserted over the guidewire guidewire was removed and discarded. All 3 ports flushed and aspirated appropriately. Line was sutured in place. Dressings were applied. Patient taught procedure well. Line okay to use. Tommie Barone Nov 09, 2020 18:42
--- NOTE | 2020-11-09 19:30 | NUR ---
NURSE NOTES: Received pt in bed, on vent via ETT, not showing any signs of distress at present settings. PT sedated with Profopol @ 5mcg/kg/min. OGT in place and is clamped. Bilateral soft wrist restraints in place. 1/2 NS infusing @ 75cc/hr via RFA #18. Douglas cath in place draining yellow urine. Rectal tube in place. Bed in low position, side rails up x2. VSS and pt is SR on the monitor.
--- NOTE | 2020-11-09 19:30 | NUR ---
NURSE HAND-OFF REPORT: Latest Vital Signs: Temperature 97.1 , Pulse 88 , B/P 129 /51 , Respiratory Rate 23 , O2 SAT 95 , Mechanical Ventilator, O2 Flow Rate . Vital Sign Comment: On propofol drip at 5mcg EKG Rhythm: Sinus Rhythm Rhythm change?: N Latest Blackwell Fall Score: 50 Fall Risk: High Risk Safety Measures: Call light Within Reach, Bed Alarm Zone 1, Side Rails Side Rails x3, Bed position Low and Locked. Fall Precautions: Yellow Socks Yellow Gown Door Sign Patient Fall Education Airborne isolation endorsed. Report given to Mario Alberto Walters RN.
[2020-11-09] MEDS: Dyna-Hex 2% Top Sol 2oz TOPIC SCH (20:00)
--- NOTE | 2020-11-09 20:17 | General Progress Note ---
Subjective Allergies: Coded Allergies: No Known Allergies (Unverified , 11/06/20) Subjective Patient titrated down to 90% FiO2. On AC/VC 16/500/40/15. Abg reviewed. Blood sugars still elevated. Insulin adjusted. ROS: unable to obtain due to ALOC Objective Last 24 Hour Vital Signs Date Time Temp Pulse Resp B/P (MAP) Pulse Ox O2 Delivery O2 Flow Rate FiO2 11/09/20 19:38 88 23 90 11/09/20 19:00 86 21 129/51 (77) 95 11/09/20 18:30 76 19 117/48 (71) 98 11/09/20 18:00 86 18 107/46 (66) 98 11/09/20 17:30 88 18 120/51 (74) 97 11/09/20 17:00 83 19 130/55 (80) 98 11/09/20 16:56 19 136/57 Mechanical Ventilator 90 11/09/20 16:30 79 19 136/57 (83) 95 11/09/20 16:00 97.1 75 21 127/51 (76) 99 11/09/20 16:00 90 11/09/20 16:00 Mechanical Ventilator 11/09/20 15:56 18 112/43 Mechanical Ventilator 90 11/09/20 15:30 73 18 112/43 (66) 97 11/09/20 15:17 70 19 90 11/09/20 15:17 70 11/09/20 15:00 74 18 118/47 (70) 97 11/09/20 14:56 17 118/47 Mechanical Ventilator 90 11/09/20 14:30 71 17 118/47 (70) 97 11/09/20 14:00 77 18 109/47 (67) 98 11/09/20 13:56 16 121/48 Mechanical Ventilator 90 11/09/20 13:30 77 16 121/48 (72) 100 11/09/20 13:00 73 18 106/39 (61) 99 11/09/20 12:56 18 95/45 Mechanical Ventilator 90 11/09/20 12:30 70 18 95/45 (62) 99 11/09/20 12:00 90 11/09/20 12:00 98.9 67 19 99/46 (63) 97 11/09/20 12:00 Mechanical Ventilator 11/09/20 11:56 19 118/50 Mechanical Ventilator 90 11/09/20 11:45 19 118/50 90 11/09/20 11:44 19 118/50 Mechanical Ventilator 90 11/09/20 11:37 68 20 90 11/09/20 11:30 77 19 118/50 (72) 98 11/09/20 11:29 74 11/09/20 11:00 72 19 107/47 (67) 96 11/09/20 10:56 18 113/49 Mechanical Ventilator 90 11/09/20 10:30 78 18 113/49 (70) 96 11/09/20 10:00 78 18 96/82 (87) 98 11/09/20 09:56 19 118/50 Mechanical Ventilator 90 11/09/20 09:30 80 19 118/50 (72) 98 11/09/20 09:06 90 11/09/20 09:06 90 11/09/20 09:00 73 19 114/46 (68) 99 11/09/20 08:56 18 120/54 Mechanical Ventilator 100 11/09/20 08:30 71 18 120/54 (76) 11/09/20 08:01 87 11/09/20 08:00 98.5 78 17 138/51 (80) 11/09/20 08:00 Mechanical Ventilator 11/09/20 08:00 100 11/09/20 07:56 19 91/42 Mechanical Ventilator 100 11/09/20 07:38 79 28 100 11/09/20 07:30 69 19 91/42 (58) 11/09/20 07:00 78 18 121/41 (67) 11/09/20 06:56 21 121/41 Mechanical Ventilator 100 11/09/20 06:30 72 17 113/53 (73) 94 11/09/20 06:00 75 20 95/41 (59) 11/09/20 05:56 21 102/55 Mechanical Ventilator 100 11/09/20 05:00 82 20 148/52 (84) 97 11/09/20 04:56 21 130/54 Mechanical Ventilator 100 11/09/20 04:30 79 20 125/54 (77) 97 11/09/20 04:00 Mechanical Ventilator 11/09/20 04:00 98.8 80 17 131/54 (79) 97 11/09/20 04:00 82 11/09/20 04:00 100 11/09/20 03:56 21 135/54 Mechanical Ventilator 100 11/09/20 03:30 78 18 129/49 (75) 100 11/09/20 03:11 81 20 100 11/09/20 03:00 72 18 122/48 (72) 97 11/09/20 02:56 18 129/49 Mechanical Ventilator 100 11/09/20 02:30 76 17 120/46 (70) 100 11/09/20 02:00 82 18 126/53 (77) 99 11/09/20 01:56 17 126/53 Mechanical Ventilator 100 11/09/20 01:30 84 17 129/54 (79) 100 11/09/20 01:00 80 21 95/42 (59) 97 11/09/20 00:56 20 129/54 Mechanical Ventilator 100 11/09/20 00:30 83 20 113/56 (75) 98 11/09/20 00:00 98.4 95 24 132/52 (78) 99 11/09/20 00:00 84 11/09/20 00:00 Mechanical Ventilator 11/09/20 00:00 100 11/08/20 23:56 20 113/56 Mechanical Ventilator 100 11/08/20 23:54 95 20 100 11/08/20 23:30 96 22 137/50 (79) 100 11/08/20 23:00 101 23 136/57 (83) 100 11/08/20 22:56 21 137/50 Mechanical Ventilator 100 11/08/20 22:30 83 18 122/49 (73) 100 11/08/20 22:00 73 21 97/43 (61) 99 11/08/20 21:56 20 122/49 Mechanical Ventilator 100 11/08/20 21:30 78 22 90/40 (57) 99 11/08/20 21:07 21 104/60 Mechanical Ventilator 100 11/08/20 21:00 85 22 97/42 (60) 98 11/08/20 20:56 21 98/40 Mechanical Ventilator 100 11/08/20 20:30 98 19 132/54 (80) 99 Intake and Output 11/08/20 11/09/20 19:00 07:00 Intake Total 1387.140 ml 1888.435 ml Output Total 20 ml 10 ml Balance 1367.140 ml 1878.435 ml Intake Oral 0 ml 0 ml IV Total 1387.140 ml 1888.435 ml Output Stool Total 20 ml 10 ml # Voids 380 710 # Bowel Movements 3 3 Laboratory Tests 11/09/20 00:07: POC Whole Blood Glucose 302H 11/09/20 05:20: White Blood Count 14.7H, Red Blood Count 3.86L, Hemoglobin 12.0L, Hematocrit 36.7L, Mean Corpuscular Volume 95, Mean Corpuscular Hemoglobin 31.0, Mean Corpuscular Hemoglobin Concent 32.7, Red Cell Distribution Width 14.1, Platelet Count 207, Mean Platelet Volume 6.5, Neutrophils (%) (Auto) , Lymphocytes (%) (Auto) , Monocytes (%) (Auto) , Eosinophils (%) (Auto) , Basophils (%) (Auto) , Differential Total Cells Counted 100, Neutrophils % (Manual) 93H, Lymphocytes % (Manual) 5L, Monocytes % (Manual) 2, Eosinophils % (Manual) 0, Basophils % (Manual) 0, Band Neutrophils 0, Platelet Estimate Adequate, Platelet Morphology Normal, Anisocytosis 1+, Sodium Level 148H, Potassium Level 5.2H, Chloride Level 116H, Carbon Dioxide Level 27, Anion Gap 5, Blood Urea Nitrogen 117H, Creatinine 2.2H, Estimat Glomerular Filtration Rate 28.7, Glucose Level 381H, Calcium Level 7.4L, Total Bilirubin 0.7, Direct Bilirubin 0.4H, Aspartate Amino Transf (AST/SGOT) 29, Alanine Aminotransferase (ALT/SGPT) 30, Alkaline Phosphatase 142H , Total Protein 6.3L, Albumin 1.5L, Globulin 4.8, Albumin/Globulin Ratio 0.3L, Triglycerides Level 148 11/09/20 05:45: POC Whole Blood Glucose 336H 11/09/20 08:51: Arterial Blood pH 7.301L, Arterial Blood Partial Pressure CO2 49.2H, Arterial Blood Partial Pressure O2 107.6H, Arterial Blood HCO3 23.7, Arterial Blood Oxygen Saturation 97.3, Arterial Blood Base Excess -3.0L, Jonathan Test Positive Height (Feet): 6 Height (Inches): 1.00 Weight (Pounds): 190 Objective Exam limited due to COVID status and to conserve PPE. Per discussion with RN. General: Male A&o x 0 On ventilator, sedated HEENT: Normocephalic cephalic atraumatic, pupils equal round reactive to light and accommodation, nares patent and no symmetrical, no tonsillar exudates, mucous membranes moist CV: Regular rate regular rhythm, no murmurs, rubs, or gallops Pulm: Lungs coarse breath sounds bilaterally. No wheezes, rhonchi, or rales GI: Soft, nontender, nondistended, bowel sounds present Neuro: Moving all extremities Ext: No lower extremity edema bilaterally Skin: no rashes lesions or ulcers Msk: Joints symmetrical in upper extremity and lower extremity bilaterally, no joint swelling. Lymph: No lymphadenopathy in upper extremity and lower extremity Assessment/Plan Status: stable Assessment/Plan: 84 yo M w DM2, HTN, ? CKD admitted for Covid19 PNA with SAMEER # acute hypoxemia Resp failure 2/ covid PNA > s/p intubation on 11/07/20 # Covid PNA # Lactic acid elevation # elevated D dimer # Trop elevated - Patient full code. See Advanced care plan note. Discussed with family and son as spokesperson who confirmed code status to be full code. Will continue discussions as patient progresses - s/p IVF bolus in ED, will keep lung dry as much as possible - s/p decadron 6mg iv daily - solumedrol Q12hr (11/08 - ) - Remdesivir per ID (11/09 - ) - azithromycin (11/08 - ) - Vancomycin (11/09 - ) - Zosyn (11/09 - ) - Abx per ID - pulm consult: Chasity - ID consult: Steven - Aneesh consult - trend ABG: reviewed - Continue Ac/VC - propofol for sedation - monitor triglycerides - Wean vent as tolerated - s/p NG tube 11/07 for meds - IV fluids per nephro #Coag neg bacteremia, contaminant? #Bilateral superimposed pneumonia - ID consulted: Dr. Harris - Follow surveilance cultures - Vanc per pharm (11/08 - ) - Zosyn (11/08 - ) # Malnutrition #HTN, current normotensive # DM2 uncontrolled #hyperglycemia - increase detemir to 10 units BID - continue SSI - accuchecks - hypoglycemia protocol # SAMEER vs. SAMEER on CKD, likely prerenal vs. # Dehydration - renal consult - Gentle IV fluids - i/o monitor, montilla cath FENPPX DVTPPX: lovenox GI PPX: protonix Fluids: per nephro Diet: NPO PT/OT: deferred Code status: Full code Dispo: SNF eventually. Guarded prognosis. Family aware Reason for Continued Hospitalization: Hypoxia Time of my involvement, the patient's condition was critical with high potential for and/or physiologic deterioration secondary to acute hypoxic respir atory failure as delineated in the note above. On the above date of service, I spent a total of 36 minutes in the ICU evaluatin g, managing, and providing critical care services to this patient, including time spent documenting these activities, counseling patient/family, and coordinating care. Critical care services performed include: -Telemetry review -Hemodynamic measurement interpretation -Laboratory data review and interpretation -Vent setting reviewed, management -Discussion of care plans with patient, family, and/or surrogate decision makers -Discussion of patient's care with primary medical team, surgical team, and/or consulting service -Decision to obtain further radiologic evaluation, after consideration of the risk/benefit ratio -Review of most recent microbiology results assessment and modification of antimicrobial coverage -Discussion of patient's CODE STATUS and further advancement towards the ultimate goals of care. Plan outlined above discussed with patient/family, EVENT MARKETING SPECIALIST, ICU team, and invo ed physician/consultants. Time of note not necessarily time patient was seen Bakari Lucio D.O. Nov 09, 2020 20:17
[2020-11-09] MEDS: Enoxaparin 40mg Inj SUBQ SCH (20:52)
[2020-11-10] VITALS (37 sets, daily range): BP systolic 94–134; BP diastolic 36–60
--- NOTE | 2020-11-10 | NUR ---
NURSE NOTES: Pt remains stable and currently tolerating vent settings. VS stable. ON=481 for which 8 units of Novolog was given subcut. Pt remains SR on the monitor.
[2020-11-10] MEDS: propofoL 1,000mg/100ml 100 ML IV SCH ×3 (00:02→20:46)
--- NOTE | 2020-11-10 04:00 | NUR ---
NURSE NOTES: Pt remains stable with stable VS. AM care given and pt repositioned for comfort. Pt remains NSR on the monitor.
[2020-11-10] MEDS: NovoLOG Insulin Flexpen SUBQ SCH ×3 (05:42→17:10)
[2020-11-10 06:02] LABS: HEMATOCRIT 35.9 % (42.0-52.0); HEMOGLOBIN 11.5 G/DL (14.2-18.0); MEAN CORPUSCULAR VOLUME 97 FL (80-99); PLATELET COUNT 161 K/UL (150-450); RED BLOOD COUNT 3.72 M/UL (4.70-6.10); RED CELL DISTRIBUTION WIDTH 14.6 % (11.6-14.8); WHITE BLOOD COUNT 10.6 K/UL (4.8-10.8)
[2020-11-10 06:22] LABS: PHOSPHORUS 4.4 MG/DL (2.5-4.9)
[2020-11-10 06:53] LABS: ALBUMIN 1.4 G/DL (3.4-5.0); ALBUMIN/GLOBULIN RATIO 0.3 (1.0-2.7); BILIRUBIN,DIRECT 0.4 MG/DL (0.0-0.3); BILIRUBIN,TOTAL 0.7 MG/DL (0.2-1.0); CALCIUM 7.3 MG/DL (8.5-10.1); CREATININE 1.9 MG/DL (0.55-1.30); POTASSIUM 5.3 MMOL/L (3.5-5.1)
--- NOTE | 2020-11-10 07:30 | NUR ---
NURSE NOTES: Patient received from Jaren HOWELL. Patient stable, sedated RASS -2. Breath sounds clear, cardiac sounds benign, NSR on pocketbook maker. RR even and unlabored on Ventilator. Bowel sounds present with abdomen soft round. BL radial pulses bounding. BL wrist restraints on with good ROM, sensation and circulation. RT femoral TLC flushed and patent with dressing dry and intact. Side rails upx2, bed low and locked. Addendum: 11/10/20 at 1212 by JENNIFER GARCIA RN Propofol infusing at 5mcg.
--- NOTE | 2020-11-10 07:37 | NUR ---
NURSE HAND-OFF REPORT: Latest Vital Signs: Temperature 99.1 , Pulse 71 , B/P 114 /44 , Respiratory Rate 19 , O2 SAT 97 , Mechanical Ventilator, O2 Flow Rate . Vital Sign Comment: EKG Rhythm: Sinus Rhythm Rhythm change?: N MD Notified?: - MD Response: Latest Blackwell Fall Score: 50 Fall Risk: High Risk Safety Measures: Call light Within Reach, Bed Alarm Zone 1, Side Rails Side Rails x3, Bed position Low and Locked. Fall Precautions: Yellow Socks Yellow Gown Door Sign Patient Fall Education Report given to LYNDA Quevedo .
[2020-11-10] MEDS ORDERED: Vancomycin 1.25gm/250ml Premix IVPB ONE (08:00)
[2020-11-10] MEDS ORDERED: Vancomycin 1.25gm/Ns 275 ML IVPB ONE ×2 (08:00)
[2020-11-10] MEDS: Piperacillin/Tazobactam 3.375 GM in NS 110 ML IVPB SCH ×2 (09:30→21:30)
[2020-11-10] MEDS: Pantoprazole Inj IVP SCH (09:30)
[2020-11-10] MEDS: Solu-MEDROL 40mg Inj IVP SCH ×2 (09:30→21:29)
[2020-11-10] MEDS: Levemir Flexpen SUBQ SCH ×2 (09:58→21:43)
--- NOTE | 2020-11-10 10:00 | NUR ---
NURSE NOTES: Patient medicated at this time. No s/sx of pain or distress.
--- NOTE | 2020-11-10 10:25 | Pulmonology Progress Note ---
Subjective ROS Limited/Unobtainable: Yes Interval Events: remains intubated Constitutional: Reports: no symptoms HEENT: Repors: no symptoms Respiratory: Reports: no symptoms Cardiovascular: Reports: no symptoms Gastrointestinal/Abdominal: Reports: no symptoms Allergies: Coded Allergies: No Known Allergies (Unverified , 11/06/20) Objective Last 24 Hour Vital Signs Date Time Temp Pulse Resp B/P (MAP) Pulse Ox O2 Delivery O2 Flow Rate FiO2 11/10/20 10:00 74 20 123/41 (68) 95 11/10/20 09:00 64 20 94/40 (58) 98 11/10/20 08:00 98.4 67 19 100/38 (58) 98 11/10/20 08:00 Mechanical Ventilator 11/10/20 08:00 67 11/10/20 08:00 90 11/10/20 07:00 19 114/44 Mechanical Ventilator 90 11/10/20 07:00 71 19 114/44 (67) 97 11/10/20 06:00 18 117/46 Mechanical Ventilator 90 11/10/20 06:00 72 18 117/46 (69) 97 11/10/20 05:00 72 17 111/39 (63) 100 11/10/20 05:00 17 111/39 Mechanical Ventilator 90 11/10/20 04:00 67 11/10/20 04:00 90 11/10/20 04:00 21 104/37 Mechanical Ventilator 90 11/10/20 04:00 99.1 72 21 104/37 (59) 98 11/10/20 04:00 Mechanical Ventilator 11/10/20 03:07 76 21 90 11/10/20 03:00 16 122/49 Mechanical Ventilator 90 11/10/20 03:00 82 16 122/49 (73) 98 11/10/20 02:00 79 19 111/46 (67) 98 11/10/20 02:00 19 111/46 Mechanical Ventilator 90 11/10/20 01:00 81 18 127/46 (73) 99 11/10/20 01:00 81 18 127/46 (73) 99 11/10/20 01:00 18 127/46 Mechanical Ventilator 90 11/10/20 00:02 24 133/59 15.0 90 11/10/20 00:00 82 11/10/20 00:00 Mechanical Ventilator 12/20/20 00:00 90 11/10/20 00:00 99.0 85 21 133/59 (83) 98 11/09/20 23:00 83 18 106/39 (61) 99 11/09/20 23:00 18 106/39 Mechanical Ventilator 90 11/09/20 22:52 76 23 90 11/09/20 22:00 83 21 132/52 (78) 98 11/09/20 22:00 21 132/52 Mechanical Ventilator 90 11/09/20 21:00 21 129/47 Mechanical Ventilator 90 11/09/20 21:00 90 21 129/47 (74) 97 11/09/20 20:00 Mechanical Ventilator 11/09/20 20:00 90 11/09/20 20:00 97.8 87 22 122/50 (74) 98 11/09/20 20:00 22 122/50 Mechanical Ventilator 90 11/09/20 20:00 79 11/09/20 19:38 88 23 90 11/09/20 19:00 86 21 129/51 (77) 95 11/09/20 18:56 19 117/48 Mechanical Ventilator 90 11/09/20 18:30 76 19 117/48 (71) 98 11/09/20 18:00 86 18 107/46 (66) 98 11/09/20 17:56 18 120/51 Mechanical Ventilator 90 11/09/20 17:30 88 18 120/51 (74) 97 11/09/20 17:00 83 19 130/55 (80) 98 11/09/20 16:56 19 136/57 Mechanical Ventilator 90 11/09/20 16:30 79 19 136/57 (83) 95 11/09/20 16:00 97.1 75 21 127/51 (76) 99 11/09/20 16:00 90 11/09/20 16:00 Mechanical Ventilator 11/09/20 15:56 18 112/43 Mechanical Ventilator 90 11/09/20 15:30 73 18 112/43 (66) 97 11/09/20 15:17 70 19 90 11/09/20 15:17 70 11/09/20 15:00 74 18 118/47 (70) 97 11/09/20 14:56 17 118/47 Mechanical Ventilator 90 11/09/20 14:30 71 17 118/47 (70) 97 11/09/20 14:00 77 18 109/47 (67) 98 11/09/20 13:56 16 121/48 Mechanical Ventilator 90 11/09/20 13:30 77 16 121/48 (72) 100 11/09/20 13:00 73 18 106/39 (61) 99 11/09/20 12:56 18 95/45 Mechanical Ventilator 90 11/09/20 12:30 70 18 95/45 (62) 99 11/09/20 12:00 90 11/09/20 12:00 98.9 67 19 99/46 (63) 97 11/09/20 12:00 Mechanical Ventilator 11/09/20 11:56 19 118/50 Mechanical Ventilator 90 11/09/20 11:45 19 118/50 90 11/09/20 11:44 19 118/50 Mechanical Ventilator 90 11/09/20 11:37 68 20 90 11/09/20 11:30 77 19 118/50 (72) 98 11/09/20 11:29 74 11/09/20 11:00 72 19 107/47 (67) 96 11/09/20 10:56 18 113/49 Mechanical Ventilator 90 11/09/20 10:30 78 18 113/49 (70) 96 Intake and Output 11/09/20 11/10/20 19:00 07:00 Intake Total 1783.473 ml 860.935 ml Output Total 50 ml Balance 1783.473 ml 810.935 ml Intake Oral 0 ml 0 ml IV Total 1783.473 ml 860.935 ml Output Stool Total 50 ml # Voids [phone] # Bowel Movements 3 3 General Appearance: no acute distress HEENT: normocephalic Respiratory: chest wall non-tender, lungs clear Cardiovascular: normal peripheral pulses, normal rate Abdomen: normal bowel sounds Laboratory Tests 11/10/20 04:58: White Blood Count 10.6, Red Blood Count 3.72L, Hemoglobin 11.5L, Hematocrit 35.9L, Mean Corpuscular Volume 97, Mean Corpuscular Hemoglobin 30.8, Mean Corpuscular Hemoglobin Concent 31.9L, Red Cell Distribution Width 14.6, Platelet Count 161, Mean Platelet Volume 7.7, Neutrophils (%) (Auto) , Lymphocytes (%) (Auto) , Monocytes (%) (Auto) , Eosinophils (%) (Auto) , Basophils (%) (Auto) , Differential Total Cells Counted 100, Neutrophils % (Manual) 96H, Lymphocytes % (Manual) 3L, Monocytes % (Manual) 1, Eosinophils % (Manual) 0, Basophils % (Manual) 0, Band Neutrophils 0, Platelet Estimate Adequate, Platelet Morphology Normal, Polychromasia 1+, Anisocytosis 1+, Sodium Level 151H, Potassium Level 5.3H, Chloride Level 119H, Carbon Dioxide Level 28, Anion Gap 4L, Blood Urea Nitrogen 109H, Creatinine 1.9H, Estimat Glomerular Filtration Rate 33.9, Glucose Level 209#H, Calcium Level 7.3L, Phosphorus Level 4.4, Magnesium Level 2.9H, Total Bilirubin 0.7, Direct Bilirubin 0.4H, Aspartate Amino Transf (AST/SGOT) 29, Alanine Aminotransferase (ALT/SGPT) 28, Alkaline Phosphatase 121H, Total Protein 5.8L, Albumin 1.4L, Globulin 4.4, Albumin/Globulin Ratio 0.3L, Trig lycerides Level 135, Random Vancomycin Level 15.4 Current Medications Medications (Trade) Dose Ordered Sig/Violet Route PRN Reason Start Time Stop Time Status Last Admin Dose Admin Azithromycin 500 mg/Dextrose 275 ml @ 275 mls/hr Q24HRS IV 11/07/20 17:00 11/13/20 17:59 11/09/20 16:38 Chlorhexidine Gluconate (Patt-Hex 2%) 1 applic DAILY@2000 TOPIC 11/09/20 20:00 02/07/21 19:59 11/09/20 20:00 Dextrose 1,000 ml @ 75 mls/hr [id number] IV 11/10/20 10:30 12/10/20 10:29 UNV Dextrose (Dextrose 50%) 25 ml Q30M PRN IV Hypoglycemia 11/06/20 20:00 02/04/21 19:59 Dextrose (Dextrose 50%) 50 ml Q30M PRN IV Hypoglycemia 11/06/20 20:00 02/04/21 19:59 Dopamine HCl/ Dextrose 250 ml @ 0 mls/hr Q24H PRN IV For hypotension 11/09/20 13:00 11/12/20 13:00 Enoxaparin Sodium (Lovenox) 40 mg Q24H SUBQ 11/07/20 21:00 02/05/21 20:59 11/09/20 20:52 Flumazenil (Romazicon) 0.2 mg NEEDED PRN IV Sedation reversal 11/06/20 20:00 Insulin Aspart (NovoLOG) EVERY 6 HOURS SUBQ 11/08/20 12:00 02/05/21 16:29 11/10/20 05:42 Insulin Detemir (Levemir) 10 units EVERY 12 HOURS SUBQ 11/09/20 11:15 02/05/21 20:59 11/10/20 09:58 Methylprednisolone Sodium Succinate (Solu-MEDROL) 40 mg Q12HR IVP 11/08/20 12:00 11/15/20 11:59 11/10/20 09:30 Naloxone HCl (Narcan) 0.4 mg NEEDED PRN IVP RR less than 6/min 11/06/20 20:00 02/04/21 19:59 Ondansetron HCl (Zofran) 4 mg Q6H PRN IVP Nausea & Vomiting 11/06/20 20:00 12/06/20 19:59 Pantoprazole (Protonix) 40 mg DAILY IVP 11/08/20 09:00 12/08/20 08:59 11/10/20 09:30 Piperacillin Sod/ Tazobactam Sod 3.375 gm/Sodium Chloride 110 ml @ 27.5 mls/hr EVERY 12 HOURS IVPB 11/08/20 13:00 11/13/20 12:59 11/10/20 09:30 Propofol 100 ml @ 2.585 mls/ hr Q12H IV 11/09/20 20:00 11/11/20 19:59 11/10/20 00:02 Remdesivir 100 mg/ Sodium Chloride 250 ml @ 250 mls/hr Q24H IV 11/09/20 14:00 11/12/20 14:59 11/09/20 14:12 Vancomycin HCl 250 ml @ 183.337 mls/hr NOW IVPB 11/10/20 08:30 11/10/20 11:00 11/10/20 09:31 Vancomycin HCl ([facility] pharmacy to dose) 1 ea DAILY PRN MISC Per rx protocol 11/07/20 21:00 12/07/20 20:59 Assessment/Plan Assessment/Plan IMPRESSION: 1. COVID-19 pneumonia. 2. Diabetes mellitus. 3. Hypertension. 4. Hyperkalemia. 5. CKD. 6. Metabolic acidosis. 7. Respiratory Failure; Acute Lung Injury DISCUSSION: Continue broad-spectrum antibiotics. Continue vent/AC mode Currently FiO2 90% PaO2 107 Blood sugar control, Continue Decadron. On propofol Check labs and ABG AM CXR unchanged Jud Werner Omar Syed MD Nov 10, 2020 10:25
--- NOTE | 2020-11-10 11:30 | Infectious Diseases Prog Note ---
Assessment/Plan Assessment/Plan A: 1. COVID-19 pneumonia. 2. Positive blood culture likely contamination 3. Respiratory failure with hypoxia 4. Diabetes. 5. Hypertension. 6. Renal failure. 7. Acidosis PLAN: 1. Continue remdesivir 2. continue Solu-Medrol. 3. Discontinue IV vancomycin. 4. Continue Zosyn. 5. Continue isolation. Subjective ROS Limited/Unobtainable: Yes Neurologic: Reports: confusion, other - on restraint Allergies: Coded Allergies: No Known Allergies (Unverified , 11/06/20) Objective Last 24 Hour Vital Signs Date Time Temp Pulse Resp B/P (MAP) Pulse Ox O2 Delivery O2 Flow Rate FiO2 11/10/20 10:00 74 20 123/41 (68) 95 11/10/20 10:00 18 123/41 Endotracheal Tube 70 11/10/20 09:21 70 11/10/20 09:00 20 94/40 Endotracheal Tube 70 11/10/20 09:00 64 20 94/40 (58) 98 11/10/20 08:00 98.4 67 19 100/38 (58) 98 11/10/20 08:00 Mechanical Ventilator 11/10/20 08:00 67 11/10/20 08:00 90 11/10/20 08:00 20 100/38 Endotracheal Tube 70 11/10/20 07:44 67 20 90 11/10/20 07:00 19 114/44 Mechanical Ventilator 90 11/10/20 07:00 71 19 114/44 (67) 97 11/10/20 06:00 18 117/46 Mechanical Ventilator 90 11/10/20 06:00 72 18 117/46 (69) 97 11/10/20 05:00 72 17 111/39 (63) 100 11/10/20 05:00 17 111/39 Mechanical Ventilator 90 11/10/20 04:00 67 11/10/20 04:00 90 11/10/20 04:00 21 104/37 Mechanical Ventilator 90 11/10/20 04:00 99.1 72 21 104/37 (59) 98 11/10/20 04:00 Mechanical Ventilator 11/10/20 03:07 76 21 90 11/10/20 03:00 16 122/49 Mechanical Ventilator 90 11/10/20 03:00 82 16 122/49 (73) 98 11/10/20 02:00 79 19 111/46 (67) 98 11/10/20 02:00 19 111/46 Mechanical Ventilator 90 11/10/20 01:00 81 18 127/46 (73) 99 11/10/20 01:00 81 18 127/46 (73) 99 11/10/20 01:00 18 127/46 Mechanical Ventilator 90 11/10/20 00:02 24 133/59 15.0 90 11/10/20 00:00 82 11/10/20 00:00 Mechanical Ventilator 11/10/20 00:00 90 11/10/20 00:00 99.0 85 21 133/59 (83) 98 11/09/20 23:00 83 18 106/39 (61) 99 11/09/20 23:00 18 106/39 Mechanical Ventilator 90 11/09/20 22:52 76 23 90 11/09/20 22:00 83 21 132/52 (78) 98 11/09/20 22:00 21 132/52 Mechanical Ventilator 90 11/09/20 21:00 21 129/47 Mechanical Ventilator 90 11/09/20 21:00 90 21 129/47 (74) 97 11/09/20 20:00 Mechanical Ventilator 11/09/20 20:00 90 11/09/20 20:00 97.8 87 22 122/50 (74) 98 11/09/20 20:00 22 122/50 Mechanical Ventilator 90 11/09/20 20:00 79 11/09/20 19:38 88 23 90 11/09/20 19:00 86 21 129/51 (77) 95 11/09/20 18:56 19 117/48 Mechanical Ventilator 90 11/09/20 18:30 76 19 117/48 (71) 98 11/09/20 18:00 86 18 107/46 (66) 98 11/09/20 17:56 18 120/51 Mechanical Ventilator 90 11/09/20 17:30 88 18 120/51 (74) 97 11/09/20 17:00 83 19 130/55 (80) 98 11/09/20 16:56 19 136/57 Mechanical Ventilator 90 11/09/20 16:30 79 19 136/57 (83) 95 11/09/20 16:00 97.1 75 21 127/51 (76) 99 11/09/20 16:00 90 11/09/20 16:00 Mechanical Ventilator 11/09/20 15:56 18 112/43 Mechanical Ventilator 90 11/09/20 15:30 73 18 112/43 (66) 97 11/09/20 15:17 70 19 90 11/09/20 15:17 70 11/09/20 15:00 74 18 118/47 (70) 97 11/09/20 14:56 17 118/47 Mechanical Ventilator 90 11/09/20 14:30 71 17 118/47 (70) 97 11/09/20 14:00 77 18 109/47 (67) 98 11/09/20 13:56 16 121/48 Mechanical Ventilator 90 11/09/20 13:30 77 16 121/48 (72) 100 11/09/20 13:00 73 18 106/39 (61) 99 11/09/20 12:56 18 95/45 Mechanical Ventilator 90 11/09/20 12:30 70 18 95/45 (62) 99 11/09/20 12:00 90 11/09/20 12:00 98.9 67 19 99/46 (63) 97 11/09/20 12:00 Mechanical Ventilator 11/09/20 11:56 19 118/50 Mechanical Ventilator 90 11/09/20 11:45 19 118/50 90 11/09/20 11:44 19 118/50 Mechanical Ventilator 90 11/09/20 11:37 68 20 90 11/09/20 11:30 77 19 118/50 (72) 98 11/09/20 11:29 74 Height (Feet): 6 Height (Inches): 1.00 Weight (Pounds): 190 HEENT: mucous membranes moist Respiratory/Chest: other - orally intubatex Cardiovascular: normal rate Abdomen: soft, non tender Extremities: no edema Neurologic/Psychiatric: other - sedated with poropofol Laboratory Tests Test 11/10/20 04:58 White Blood Count 10.6 K/UL (4.8-10.8) Red Blood Count 3.72 M/UL (4.70-6.10) L Hemoglobin 11.5 G/DL (14.2-18.0) L Hematocrit 35.9 % (42.0-52.0) L Mean Corpuscular Volume 97 FL (80-99) Mean Corpuscular Hemoglobin 30.8 PG (27.0-31.0) Mean Corpuscular Hemoglobin Concent 31.9 G/DL (32.0-36.0) L Red Cell Distribution Width 14.6 % (11.6-14.8) Platelet Count 161 K/UL (150-450) Mean Platelet Volume 7.7 FL (6.5-10.1) Neutrophils (%) (Auto) % (45.0-75.0) Lymphocytes (%) (Auto) % (20.0-45.0) Monocytes (%) (Auto) % (1.0-10.0) Eosinophils (%) (Auto) % (0.0-3.0) Basophils (%) (Auto) % (0.0-2.0) Differential Total Cells Counted 100 Neutrophils % (Manual) 96 % (45-75) H Lymphocytes % (Manual) 3 % (20-45) L Monocytes % (Manual) 1 % (1-10) Eosinophils % (Manual) 0 % (0-3) Basophils % (Manual) 0 % (0-2) Band Neutrophils 0 % (0-8) Platelet Estimate Adequate Platelet Morphology Normal Polychromasia 1+ Anisocytosis 1+ Sodium Level 151 MMOL/L (136-145) H Potassium Level 5.3 MMOL/L (3.5-5.1) H Chloride Level 119 MMOL/L (98-107) H Carbon Dioxide Level 28 MMOL/L (21-32) Anion Gap 4 mmol/L (5-15) L Blood Urea Nitrogen 109 mg/dL (7-18) H Creatinine 1.9 MG/DL (0.55-1.30) H Estimat Glomerular Filtration Rate 33.9 mL/min (>60) Glucose Level 209 MG/DL (74-106) #H Calcium Level 7.3 MG/DL (8.5-10.1) L Phosphorus Level 4.4 MG/DL (2.5-4.9) Magnesium Level 2.9 MG/DL (1.8-2.4) H Total Bilirubin 0.7 MG/DL (0.2-1.0) Direct Bilirubin 0.4 MG/DL (0.0-0.3) H Aspartate Amino Transf (AST/SGOT) 29 U/L (15-37) Alanine Aminotransferase (ALT/SGPT) 28 U/L (12-78) Alkaline Phosphatase 121 U/L (46-116) H Total Protein 5.8 G/DL (6.4-8.2) L Albumin 1.4 G/DL (3.4-5.0) L Globulin 4.4 g/dL Albumin/Globulin Ratio 0.3 (1.0-2.7) L Triglycerides Level 135 MG/DL (30-150) Random Vancomycin Level 15.4 ug/mL Current Medications Medications (Trade) Dose Ordered Sig/Violet Route PRN Reason Start Time Stop Time Status Last Admin Dose Admin Azithromycin 500 mg/Dextrose 275 ml @ 275 mls/hr Q24HRS IV 11/07/20 17:00 11/13/20 17:59 11/09/20 16:38 Chlorhexidine Gluconate (Patt-Hex 2%) 1 applic DAILY@2000 TOPIC 11/09/20 20:00 02/07/21 19:59 11/09/20 20:00 Dextrose 1,000 ml @ 75 mls/hr [id number] IV 11/10/20 10:30 12/10/20 10:29 11/10/20 11:13 Dextrose (Dextrose 50%) 25 ml Q30M PRN IV Hypoglycemia 11/06/20 20:00 02/04/21 19:59 Dextrose (Dextrose 50%) 50 ml Q30M PRN IV Hypoglycemia 11/06/20 20:00 02/04/21 19:59 Dopamine HCl/ Dextrose 250 ml @ 0 mls/hr Q24H PRN IV For hypotension 11/09/20 13:00 11/12/20 13:00 Enoxaparin Sodium (Lovenox) 40 mg Q24H SUBQ 11/07/20 21:00 02/05/21 20:59 11/09/20 20:52 Flumazenil (Romazicon) 0.2 mg NEEDED PRN IV Sedation reversal 11/06/20 20:00 Insulin Aspart (NovoLOG) EVERY 6 HOURS SUBQ 11/08/20 12:00 02/05/21 16:29 11/10/20 05:42 Insulin Detemir (Levemir) 10 units EVERY 12 HOURS SUBQ 11/09/20 11:15 02/05/21 20:59 11/10/20 09:58 Methylprednisolone Sodium Succinate (Solu-MEDROL) 40 mg Q12HR IVP 11/08/20 12:00 11/15/20 11:59 11/10/20 09:30 Naloxone HCl (Narcan) 0.4 mg NEEDED PRN IVP RR less than 6/min 11/06/20 20:00 02/04/21 19:59 Ondansetron HCl (Zofran) 4 mg Q6H PRN IVP Nausea & Vomiting 11/06/20 20:00 12/06/20 19:59 Pantoprazole (Protonix) 40 mg DAILY IVP 11/08/20 09:00 12/08/20 08:59 11/10/20 09:30 Piperacillin Sod/ Tazobactam Sod 3.375 gm/Sodium Chloride 110 ml @ 27.5 mls/hr EVERY 12 HOURS IVPB 11/08/20 13:00 11/13/20 12:59 11/10/20 09:30 Propofol 100 ml @ 2.585 mls/ hr Q12H IV 11/09/20 20:00 11/11/20 19:59 11/10/20 00:02 Remdesivir 100 mg/ Sodium Chloride 250 ml @ 250 mls/hr Q24H IV 11/09/20 14:00 11/12/20 14:59 11/09/20 14:12 Vancomycin HCl ([facility] pharmacy to dose) 1 ea DAILY PRN MISC Per rx protocol 11/07/20 21:00 12/07/20 20:59 Karson Cabrera MD Nov 10, 2020 11:30
--- NOTE | 2020-11-10 11:57 | NUR ---
NURSE NOTES: Patient stable at this time. No s/sx of pain or distress. BS WNL.
--- NOTE | 2020-11-10 12:24 | Consultation ---
History of Present Illness General Date patient seen: Nov 10, 2020 Chief Complaint: Dyspnea/Respdistress Reason for Consultation: SAMEER on CKD Present Illness HPI 84-year-old male currently in intensive care unit requiring support respiratory insufficiency abnormal labs acute kidney injury CKD DM recent surgeries catheter insertion on support surgical devices with care patient seen, patient evaluated chart reviewed. Eyes open respiratory on vent unable to provide history Allergies: Coded Allergies: No Known Allergies (Unverified , 11/06/20) Medication History Scheduled Insulin Glargine (Lantus), 30 UNITS SUBQ BID, (Reported) Lisinopril* (Lisinopril*), Unknown Dose ORAL DAILY, (Reported) Lovastatin (Lovastatin), 20 MG ORAL BEDTIME, (Reported) Patient History Limited by: medical condition History Provided By: Medical Record, PMD Healthcare decision maker N Resuscitation status Advanced Directive on File Past Medical/Surgical History Past Medical/Surgical History: (1) ARDS (adult respiratory distress syndrome) (2) Hypoxemia (3) Renal failure (4) Elevated troponin (5) COVID-19 Review of Systems All Other Systems: negative except mentioned in HPI ROS Narrative Unable to provide given medical condition Physical Exam General Appearance: lethargic, mild distress Lines, tubes and drains: central line, endotracheal tube HEENT: other Neck: supple, normal inspection Respiratory/Chest: decreased breath sounds, on vent Cardiovascular/Chest: tachycardia Abdomen: soft, no organomegaly, no mass Extremities: normal inspection Skin Exam: warm/dry Neurologic: alert Last 24 Hour Vital Signs Date Time Temp Pulse Resp B/P (MAP) Pulse Ox O2 Delivery O2 Flow Rate FiO2 11/10/20 12:00 Mechanical Ventilator 11/10/20 12:00 98.3 76 18 125/45 (71) 95 11/10/20 12:00 70 11/10/20 11:46 77 26 70 11/10/20 11:00 64 21 103/36 (58) 94 11/10/20 10:00 74 20 123/41 (68) 95 11/10/20 10:00 18 123/41 Endotracheal Tube 70 11/10/20 09:21 70 11/10/20 09:00 20 94/40 Endotracheal Tube 70 11/10/20 09:00 64 20 94/40 (58) 98 11/10/20 08:00 98.4 67 19 100/38 (58) 98 11/10/20 08:00 Mechanical Ventilator 11/10/20 08:00 67 11/10/20 08:00 90 11/10/20 08:00 20 100/38 Endotracheal Tube 70 11/10/20 07:44 67 20 90 11/10/20 07:00 19 114/44 Mechanical Ventilator 90 11/10/20 07:00 71 19 114/44 (67) 97 11/10/20 06:00 18 117/46 Mechanical Ventilator 90 11/10/20 06:00 72 18 117/46 (69) 97 11/10/20 05:00 72 17 111/39 (63) 100 11/10/20 05:00 17 111/39 Mechanical Ventilator 90 11/10/20 04:00 67 11/10/20 04:00 90 11/10/20 04:00 21 104/37 Mechanical Ventilator 90 11/10/20 04:00 99.1 72 21 104/37 (59) 98 11/10/20 04:00 Mechanical Ventilator 11/10/20 03:07 76 21 90 11/10/20 03:00 16 122/49 Mechanical Ventilator 90 11/10/20 03:00 82 16 122/49 (73) 98 11/10/20 02:00 79 19 111/46 (67) 98 11/10/20 02:00 19 111/46 Mechanical Ventilator 90 11/10/20 01:00 81 18 127/46 (73) 99 11/10/20 01:00 81 18 127/46 (73) 99 11/10/20 01:00 18 127/46 Mechanical Ventilator 90 11/10/20 00:02 24 133/59 15.0 90 11/10/20 00:00 82 11/10/20 00:00 Mechanical Ventilator 11/10/20 00:00 90 11/10/20 00:00 99.0 85 21 133/59 (83) 98 11/09/20 23:00 83 18 106/39 (61) 99 11/09/20 23:00 18 106/39 Mechanical Ventilator 90 11/09/20 22:52 76 23 90 11/09/20 22:00 83 21 132/52 (78) 98 11/09/20 22:00 21 132/52 Mechanical Ventilator 90 11/09/20 21:00 21 129/47 Mechanical Ventilator 90 12/19/20 21:00 90 21 129/47 (74) 97 20 20:00 Mechanical Ventilator 11/09/20 20:00 90 11/09/20 20:00 97.8 87 22 122/50 (74) 98 11/09/20 20:00 22 122/50 Mechanical Ventilator 90 20 20:00 79 11/09/20 19:38 88 23 90 11/09/20 19:00 86 21 129/51 (77) 95 11/09/20 18:56 19 117/48 Mechanical Ventilator 90 11/09/20 18:30 76 19 117/48 (71) 98 11/09/20 18:00 86 18 107/46 (66) 98 11/09/20 17:56 18 120/51 Mechanical Ventilator 90 11/09/20 17:30 88 18 120/51 (74) 97 11/09/20 17:00 83 19 130/55 (80) 98 11/09/20 16:56 19 136/57 Mechanical Ventilator 90 11/09/20 16:30 79 19 136/57 (83) 95 11/09/20 16:00 97.1 75 21 127/51 (76) 99 11/09/20 16:00 90 11/09/20 16:00 Mechanical Ventilator 11/09/20 15:56 18 112/43 Mechanical Ventilator 90 11/09/20 15:30 73 18 112/43 (66) 97 11/09/20 15:17 70 19 90 11/09/20 15:17 70 11/09/20 15:00 74 18 118/47 (70) 97 11/09/20 14:56 17 118/47 Mechanical Ventilator 90 11/09/20 14:30 71 17 118/47 (70) 97 11/09/20 14:00 77 18 109/47 (67) 98 11/09/20 13:56 16 121/48 Mechanical Ventilator 90 11/09/20 13:30 77 16 121/48 (72) 100 11/09/20 13:00 73 18 106/39 (61) 99 11/09/20 12:56 18 95/45 Mechanical Ventilator 90 11/09/20 12:30 70 18 95/45 (62) 99 Intake and Output 11/09/20 11/10/20 19:00 07:00 Intake Total 1783.473 ml 860.935 ml Output Total 50 ml Balance 1783.473 ml 810.935 ml Intake Oral 0 ml 0 ml IV Total 1783.473 ml 860.935 ml Output Stool Total 50 ml # Voids 410 696 # Bowel Movements 3 3 Laboratory Tests Test 11/10/20 04:58 White Blood Count 10.6 K/UL (4.8-10.8) Red Blood Count 3.72 M/UL (4.70-6.10) L Hemoglobin 11.5 G/DL (14.2-18.0) L Hematocrit 35.9 % (42.0-52.0) L Mean Corpuscular Volume 97 FL (80-99) Mean Corpuscular Hemoglobin 30.8 PG (27.0-31.0) Mean Corpuscular Hemoglobin Concent 31.9 G/DL (32.0-36.0) L Red Cell Distribution Width 14.6 % (11.6-14.8) Platelet Count 161 K/UL (150-450) Mean Platelet Volume 7.7 FL (6.5-10.1) Neutrophils (%) (Auto) % (45.0-75.0) Lymphocytes (%) (Auto) % (20.0-45.0) Monocytes (%) (Auto) % (1.0-10.0) Eosinophils (%) (Auto) % (0.0-3.0) Basophils (%) (Auto) % (0.0-2.0) Differential Total Cells Counted 100 Neutrophils % (Manual) 96 % (45-75) H Lymphocytes % (Manual) 3 % (20-45) L Monocytes % (Manual) 1 % (1-10) Eosinophils % (Manual) 0 % (0-3) Basophils % (Manual) 0 % (0-2) Band Neutrophils 0 % (0-8) Platelet Estimate Adequate Platelet Morphology Normal Polychromasia 1+ Anisocytosis 1+ Sodium Level 151 MMOL/L (136-145) H Potassium Level 5.3 MMOL/L (3.5-5.1) H Chloride Level 119 MMOL/L (98-107) H Carbon Dioxide Level 28 MMOL/L (21-32) Anion Gap 4 mmol/L (5-15) L Blood Urea Nitrogen 109 mg/dL (7-18) H Creatinine 1.9 MG/DL (0.55-1.30) H Estimat Glomerular Filtration Rate 33.9 mL/min (>60) Glucose Level 209 MG/DL (74-106) #H Calcium Level 7.3 MG/DL (8.5-10.1) L Phosphorus Level 4.4 MG/DL (2.5-4.9) Magnesium Level 2.9 MG/DL (1.8-2.4) H Total Bilirubin 0.7 MG/DL (0.2-1.0) Direct Bilirubin 0.4 MG/DL (0.0-0.3) H Aspartate Amino Transf (AST/SGOT) 29 U/L (15-37) Alanine Aminotransferase (ALT/SGPT) 28 U/L (12-78) Alkaline Phosphatase 121 U/L (46-116) H Total Protein 5.8 G/DL (6.4-8.2) L Albumin 1.4 G/DL (3.4-5.0) L Globulin 4.4 g/dL Albumin/Globulin Ratio 0.3 (1.0-2.7) L Triglycerides Level 135 MG/DL (30-150) Random Vancomycin Level 15.4 ug/mL Height (Feet): 6 Height (Inches): 1.00 Weight (Pounds): 190 Medications Current Medications Medications (Trade) Dose Ordered Sig/Violet Route PRN Reason Start Time Stop Time Status Last Admin Dose Admin Azithromycin 500 mg/Dextrose 275 ml @ 275 mls/hr Q24HRS IV 11/07/20 17:00 11/13/20 17:59 11/09/20 16:38 Chlorhexidine Gluconate (Patt-Hex 2%) 1 applic DAILY@2000 TOPIC 11/09/20 20:00 02/07/21 19:59 11/09/20 20:00 Dextrose 1,000 ml @ 75 mls/hr [id number] IV 11/10/20 10:30 12/10/20 10:29 11/10/20 11:13 Dextrose (Dextrose 50%) 25 ml Q30M PRN IV Hypoglycemia 11/06/20 20:00 02/04/21 19:59 Dextrose (Dextrose 50%) 50 ml Q30M PRN IV Hypoglycemia 11/06/20 20:00 02/04/21 19:59 Dopamine HCl/ Dextrose 250 ml @ 0 mls/hr Q24H PRN IV For hypotension 11/09/20 13:00 11/12/20 13:00 Enoxaparin Sodium (Lovenox) 40 mg Q24H SUBQ 11/07/20 21:00 02/05/21 20:59 11/09/20 20:52 Flumazenil (Romazicon) 0.2 mg NEEDED PRN IV Sedation reversal 11/06/20 20:00 Insulin Aspart (NovoLOG) EVERY 6 HOURS SUBQ 11/08/20 12:00 02/05/21 16:29 11/10/20 05:42 Insulin Detemir (Levemir) 10 units EVERY 12 HOURS SUBQ 11/09/20 11:15 02/05/21 20:59 11/10/20 09:58 Methylprednisolone Sodium Succinate (Solu-MEDROL) 40 mg Q12HR IVP 11/08/20 12:00 11/15/20 11:59 11/10/20 09:30 Naloxone HCl (Narcan) 0.4 mg NEEDED PRN IVP RR less than 6/min 11/06/20 20:00 02/04/21 19:59 Ondansetron HCl (Zofran) 4 mg Q6H PRN IVP Nausea & Vomiting 11/06/20 20:00 12/06/20 19:59 Pantoprazole (Protonix) 40 mg DAILY IVP 11/08/20 09:00 12/08/20 08:59 11/10/20 09:30 Piperacillin Sod/ Tazobactam Sod 3.375 gm/Sodium Chloride 110 ml @ 27.5 mls/hr EVERY 12 HOURS IVPB 11/08/20 13:00 11/13/20 12:59 11/10/20 09:30 Propofol 100 ml @ 2.585 mls/ hr Q12H IV 11/09/20 20:00 11/11/20 19:59 11/10/20 00:02 Remdesivir 100 mg/ Sodium Chloride 250 ml @ 250 mls/hr Q24H IV 11/09/20 14:00 11/12/20 14:59 11/09/20 14:12 Assessment/Plan Problem List: (1) ARDS (adult respiratory distress syndrome) Assessment & Plan: 84-year-old male who pressor insufficiency ARDS Covid on vent ET tube in place chest x-ray reviewed central line in place on sedation. Continue daily weaning trials. NG tube okay for diet tube feeds continue. Microbiology reviewed labs reviewed. Trend labs. IV fluids. Will follow with recommendations thank you for let me participate patient's care DAILY ESTIMATED NEEDS: Needs based on Critcal care 82.4kg abw 22-28 kcals/kg 2138-1407 total kcals 1.2-2 g protein/kg 99-165 g total protein 20-25/ or per MD mL/kg 8980-9878 total fluid mLs NUTRITION DIAGNOSIS: Swallowing difficulty r/t respiratory status as evidenced by 84 y/o M adm w/ covid++, now orally intubated, NPO. ENTERAL NUTRITION RECOMMENDATIONS: VITAL 1.2 GOAL OF 65ml/hr x24 hrs to provide 1560ml, 1872 kcal, 117g pro, 1265ml free H2O - When hemodynamically stable, rec to start non oral feeds to meet est kcal and pro needs. - Start Vital 1.2 @35ml/hr for 6 hrs, advance as tolerated 10ml/hr q4-6 hrs to goal. - Flush per MD. HOB over 30 degrees ADDITIONAL RECOMMENDATIONS: 1) Maintain calibrated bed scale wts 2) Followed by end, monitor for hypoglycemia while NPO 3) Feed when hemodynamically stable, TF recs as above for critical care, carb control, high pro content to meet est needs 4) Re-evaluate TF w/ change in propofol rate-> current rate w/ TF's do NOT exceed est needs. ICD Codes: J80 - Acute respiratory distress syndrome SNOMED: 64895958, 01491488 (2) Hypoxemia ICD Codes: R09.02 - Hypoxemia SNOMED: 333184401, 44442828 (3) Renal failure ICD Codes: N19 - Unspecified kidney failure SNOMED: 08505860, 00785024 (4) Elevated troponin ICD Codes: R77.8 - Other specified abnormalities of plasma proteins SNOMED: 326289585, 390894314, 331066483 (5) COVID-19 ICD Codes: U07.1 - COVID-19 SNOMED: 657236257 Tommie Barone Nov 10, 2020 12:24
[2020-11-10] MEDS: Maintenance Dose:Remdesivir 100mg/NS 230ml x 4 Doses IV SCH ×2 (13:52)
--- NOTE | 2020-11-10 14:00 | NUR ---
NURSE NOTES: Patient at RASS +1 at 1300. Propofol increased to 10mcg. Patient now at RASS -2.
--- NOTE | 2020-11-10 14:17 | Nephrology Progress Note ---
Assessment/Plan Plan #SAMEER on CKD- likely pre-renal azotemia in the setting of sepsis #hypnatremia # acute hypoxemia Resp failure 2/2 covid PNA requiring BIPAP # Covid PNA # Lactic acid elevation # Malnutrition #HTN, current normotensive # elevated D dimer # Trop elevated # DM2 uncontrolled - - gentle hydration- switch to D5w 75cc/hr - kayexalate 15g x1 - intubated - monitor volume status - monitor ABG - monitor BMP, mag and phos daily - strict I&Os - daily weights - echo - defer renal US - antibiotic per ID time spent 65min Subjective ROS Limited/Unobtainable: Yes Subjective intubated Cr 1.9 sodium 151 K 5.3 Objective Objective Last 24 Hour Vital Signs Date Time Temp Pulse Resp B/P (MAP) Pulse Ox O2 Delivery O2 Flow Rate FiO2 11/10/20 13:00 19 126/48 Endotracheal Tube 70 11/10/20 13:00 85 18 126/48 (74) 95 11/10/20 12:00 Mechanical Ventilator 11/10/20 12:00 19 125/45 Endotracheal Tube 70 11/10/20 12:00 98.3 76 18 125/45 (71) 95 11/10/20 12:00 72 11/10/20 12:00 70 11/10/20 11:46 77 26 70 11/10/20 11:00 19 103/36 Endotracheal Tube 70 11/10/20 11:00 64 21 103/36 (58) 94 11/10/20 10:00 74 20 123/41 (68) 95 11/10/20 10:00 18 123/41 Endotracheal Tube 70 11/10/20 09:21 70 11/10/20 09:00 20 94/40 Endotracheal Tube 70 11/10/20 09:00 64 20 94/40 (58) 98 11/10/20 08:00 98.4 67 19 100/38 (58) 98 11/10/20 08:00 Mechanical Ventilator 11/10/20 08:00 67 11/10/20 08:00 90 11/10/20 08:00 20 100/38 Endotracheal Tube 70 11/10/20 07:44 67 20 90 11/10/20 07:00 19 114/44 Mechanical Ventilator 90 11/10/20 07:00 71 19 114/44 (67) 97 11/10/20 06:00 18 117/46 Mechanical Ventilator 90 11/10/20 06:00 72 18 117/46 (69) 97 11/10/20 05:00 72 17 111/39 (63) 100 11/10/20 05:00 17 111/39 Mechanical Ventilator 90 11/10/20 04:00 67 11/10/20 04:00 90 11/10/20 04:00 21 104/37 Mechanical Ventilator 90 11/10/20 04:00 99.1 72 21 104/37 (59) 98 11/10/20 04:00 Mechanical Ventilator 11/10/20 03:07 76 21 90 11/10/20 03:00 16 122/49 Mechanical Ventilator 90 11/10/20 03:00 82 16 122/49 (73) 98 11/10/20 02:00 79 19 111/46 (67) 98 11/10/20 02:00 19 111/46 Mechanical Ventilator 90 11/10/20 01:00 81 18 127/46 (73) 99 11/10/20 01:00 81 18 127/46 (73) 99 11/10/20 01:00 18 127/46 Mechanical Ventilator 90 11/10/20 00:02 24 133/59 15.0 90 11/10/20 00:00 82 11/10/20 00:00 Mechanical Ventilator 11/10/20 00:00 90 11/10/20 00:00 99.0 85 21 133/59 (83) 98 11/09/20 23:00 83 18 106/39 (61) 99 11/09/20 23:00 18 106/39 Mechanical Ventilator 90 11/09/20 22:52 76 23 90 11/09/20 22:00 83 21 132/52 (78) 98 11/09/20 22:00 21 132/52 Mechanical Ventilator 90 11/09/20 21:00 21 129/47 Mechanical Ventilator 90 11/09/20 21:00 90 21 129/47 (74) 97 11/09/20 20:00 Mechanical Ventilator 11/09/20 20:00 90 11/09/20 20:00 97.8 87 22 122/50 (74) 98 11/09/20 20:00 22 122/50 Mechanical Ventilator 90 11/09/20 20:00 79 11/09/20 19:38 88 23 90 11/09/20 19:00 86 21 129/51 (77) 95 11/09/20 18:56 19 117/48 Mechanical Ventilator 90 11/09/20 18:30 76 19 117/48 (71) 98 11/09/20 18:00 86 18 107/46 (66) 98 11/09/20 17:56 18 120/51 Mechanical Ventilator 90 11/09/20 17:30 88 18 120/51 (74) 97 11/09/20 17:00 83 19 130/55 (80) 98 11/09/20 16:56 19 136/57 Mechanical Ventilator 90 11/09/20 16:30 79 19 136/57 (83) 95 11/09/20 16:00 97.1 75 21 127/51 (76) 99 11/09/20 16:00 90 11/09/20 16:00 Mechanical Ventilator 11/09/20 15:56 18 112/43 Mechanical Ventilator 90 11/09/20 15:30 73 18 112/43 (66) 97 11/09/20 15:17 70 19 90 11/09/20 15:17 70 11/09/20 15:00 74 18 118/47 (70) 97 11/09/20 14:56 17 118/47 Mechanical Ventilator 90 11/09/20 14:30 71 17 118/47 (70) 97 Intake and Output 11/09/20 11/10/20 19:00 07:00 Intake Total 1783.473 ml 860.935 ml Output Total 50 ml Balance 1783.473 ml 810.935 ml Intake Oral 0 ml 0 ml IV Total 1783.473 ml 860.935 ml Output Stool Total 50 ml # Voids 410 696 # Bowel Movements 3 3 Laboratory Tests 11/10/20 04:58: White Blood Count 10.6, Red Blood Count 3.72L, Hemoglobin 11.5L, Hematocrit 35.9L, Mean Corpuscular Volume 97, Mean Corpuscular Hemoglobin 30.8, Mean Corpuscular Hemoglobin Concent 31.9L, Red Cell Distribution Width 14.6, Platelet Count 161, Mean Platelet Volume 7.7, Neutrophils (%) (Auto) , Lymphocytes (%) (Auto) , Monocytes (%) (Auto) , Eosinophils (%) (Auto) , Basophils (%) (Auto) , Differential Total Cells Counted 100, Neutrophils % (Manual) 96H, Lymphocytes % (Manual) 3L, Monocytes % (Manual) 1, Eosinophils % (Manual) 0, Basophils % (Manual) 0, Band Neutrophils 0, Platelet Estimate Adequate, Platelet Morphology Normal, Polychromasia 1+, Anisocytosis 1+, Sodium Level 151H, Potassium Level 5.3H, Chloride Level 119H, Carbon Dioxide Level 28, Anion Gap 4L, Blood Urea Nitrogen 109H, Creatinine 1.9H, Estimat Glomerular Filtration Rate 33.9, Glucose Level 209#H, Calcium Level 7.3L, Phosphorus Level 4.4, Magnesium Level 2.9H, Total Bilirubin 0.7, Direct Bilirubin 0.4H, Aspartate Amino Transf (AST/SGOT) 29, Alanine Aminotransferase (ALT/SGPT) 28, Alkaline Phosphatase 121H, Total Protein 5.8L, Albumin 1.4L, Globulin 4.4, Albumin/Globulin Ratio 0.3L, Triglycerides Level 135, Random Vancomycin Level 15.4 Height (Feet): 6 Height (Inches): 1.00 Weight (Pounds): 190 Kulwant Hong M.D. Nov 10, 2020 14:17
[2020-11-10] MEDS ORDERED: Sodium Polystyrene Sulfonate 15gm Powder ORAL SCH (14:30)
--- NOTE | 2020-11-10 16:00 | NUR ---
NURSE NOTES: Patient stable. No s/sx of pain or distress.
[2020-11-10] MEDS: Azithromycin 500 MG in D5W 275 ML IV SCH (17:08)
--- NOTE | 2020-11-10 18:00 | NUR ---
NURSE NOTES: Patient stable. No s/sx of pain or distress. Patient cleaned at this time.
--- NOTE | 2020-11-10 19:19 | NUR ---
NURSE HAND-OFF REPORT: Latest Vital Signs: Temperature 98.6 , Pulse 64 , B/P 100 /38 , Respiratory Rate 23 , O2 SAT 99 , Endotracheal Tube, O2 Flow Rate . Vital Sign Comment: STABLE EKG Rhythm: Sinus Rhythm Rhythm change?: N MD Notified?: - MD Response: Latest Blackwell Fall Score: 50 Fall Risk: High Risk Safety Measures: Call light Within Reach, Bed Alarm Zone 1, Side Rails Side Rails x3, Bed position Low and Locked. Fall Precautions: Yellow Socks Yellow Gown Door Sign Patient Fall Education Report given to Elicia HOWELL. Plan of care endorsed.
--- NOTE | 2020-11-10 19:30 | NUR ---
NURSE NOTES: Received pt orally intubated, on ac mode, sedated with diprivan drip at 10mcg/kg/min to RASS sCORE -2, , SR on the monitor, Bp stable afebrile, Still npo at this time, ogt in place, oral care done.Suctioned tn Frothy secretions from mouth. fole to gravity with ishmael yellow urine moderate in amt. montilla cath care done. skin remained intact. will continue to monitor.
--- NOTE | 2020-11-10 20:13 | General Progress Note ---
Subjective Allergies: Coded Allergies: No Known Allergies (Unverified , 11/06/20) Subjective Patient titrated down to 75% FiO2. On AC/VC. Vent settings reviewed. Abg reviewed. Blood sugars improved. ROS: unable to obtain due to ALOC Objective Last 24 Hour Vital Signs Date Time Temp Pulse Resp B/P (MAP) Pulse Ox O2 Delivery O2 Flow Rate FiO2 11/10/20 19:00 64 23 100/38 (58) 99 11/10/20 18:44 70 22 70 11/10/20 18:00 75 22 96/48 (64) 96 11/10/20 17:00 67 18 102/38 (59) 96 11/10/20 16:00 70 11/10/20 16:00 98.6 66 23 109/40 (63) 95 11/10/20 16:00 Mechanical Ventilator 11/10/20 16:00 65 11/10/20 15:48 64 24 70 11/10/20 15:00 80 20 129/41 (70) 96 11/10/20 14:00 71 22 100/38 (58) 93 11/10/20 13:00 19 126/48 Endotracheal Tube 70 11/10/20 13:00 85 18 126/48 (74) 95 11/10/20 12:00 Mechanical Ventilator 11/10/20 12:00 19 125/45 Endotracheal Tube 70 11/10/20 12:00 98.3 76 18 125/45 (71) 95 11/10/20 12:00 72 11/10/20 12:00 70 11/10/20 11:46 77 26 70 11/10/20 11:00 19 103/36 Endotracheal Tube 70 11/10/20 11:00 64 21 103/36 (58) 94 11/10/20 10:00 74 20 123/41 (68) 95 11/10/20 10:00 18 123/41 Endotracheal Tube 70 11/10/20 09:21 70 11/10/20 09:00 20 94/40 Endotracheal Tube 70 11/10/20 09:00 64 20 94/40 (58) 98 11/10/20 08:00 98.4 67 19 100/38 (58) 98 11/10/20 08:00 Mechanical Ventilator 11/10/20 08:00 67 11/10/20 08:00 90 11/10/20 08:00 20 100/38 Endotracheal Tube 70 11/10/20 07:44 67 20 90 11/10/20 07:00 19 114/44 Mechanical Ventilator 90 11/10/20 07:00 71 19 114/44 (67) 97 11/10/20 06:00 18 117/46 Mechanical Ventilator 90 11/10/20 06:00 72 18 117/46 (69) 97 11/10/20 05:00 72 17 111/39 (63) 100 11/10/20 05:00 17 111/39 Mechanical Ventilator 90 11/10/20 04:00 67 11/10/20 04:00 90 11/10/20 04:00 21 104/37 Mechanical Ventilator 90 11/10/20 04:00 99.1 72 21 104/37 (59) 98 11/10/20 04:00 Mechanical Ventilator 11/10/20 03:07 76 21 90 11/10/20 03:00 16 122/49 Mechanical Ventilator 90 11/10/20 03:00 82 16 122/49 (73) 98 11/10/20 02:00 79 19 111/46 (67) 98 11/10/20 02:00 19 111/46 Mechanical Ventilator 90 11/10/20 01:00 81 18 127/46 (73) 99 11/10/20 01:00 81 18 127/46 (73) 99 11/10/20 01:00 18 127/46 Mechanical Ventilator 90 11/10/20 00:02 24 133/59 15.0 90 11/10/20 00:00 82 11/10/20 00:00 Mechanical Ventilator 11/10/20 00:00 90 11/10/20 00:00 99.0 85 21 133/59 (83) 98 11/09/20 23:00 83 18 106/39 (61) 99 11/09/20 23:00 18 106/39 Mechanical Ventilator 90 11/09/20 22:52 76 23 90 11/09/20 22:00 83 21 132/52 (78) 98 11/09/20 22:00 21 132/52 Mechanical Ventilator 90 11/09/20 21:00 21 129/47 Mechanical Ventilator 90 11/09/20 21:00 90 21 129/47 (74) 97 Intake and Output 11/09/20 11/10/20 19:00 07:00 Intake Total 1783.473 ml 860.935 ml Output Total 50 ml Balance 1783.473 ml 810.935 ml Intake Oral 0 ml 0 ml IV Total 1783.473 ml 860.935 ml Output Stool Total 50 ml # Voids 410 696 # Bowel Movements 3 3 Laboratory Tests 11/10/20 04:58: White Blood Count 10.6, Red Blood Count 3.72L, Hemoglobin 11.5L, Hematocrit 35.9L, Mean Corpuscular Volume 97, Mean Corpuscular Hemoglobin 30.8, Mean Corpuscular Hemoglobin Concent 31.9L, Red Cell Distribution Width 14.6, Platelet Count 161, Mean Platelet Volume 7.7, Neutrophils (%) (Auto) , Lymphocytes (%) (Auto) , Monocytes (%) (Auto) , Eosinophils (%) (Auto) , Basophils (%) (Auto) , Differential Total Cells Counted 100, Neutrophils % (Manual) 96H, Lymphocytes % (Manual) 3L, Monocytes % (Manual) 1, Eosinophils % (Manual) 0, Basophils % (Manual) 0, Band Neutrophils 0, Platelet Estimate Adequate, Platelet Morphology Normal, Polychromasia 1+, Anisocytosis 1+, Sodium Level 151H, Potassium Level 5.3H, Chloride Level 119H, Carbon Dioxide Level 28, Anion Gap 4L, Blood Urea Ni trogen 109H, Creatinine 1.9H, Estimat Glomerular Filtration Rate 33.9, Glucose Level 209#H, Calcium Level 7.3L, Phosphorus Level 4.4, Magnesium Level 2.9H, Total Bilirubin 0.7, Direct Bilirubin 0.4H, Aspartate Amino Transf (AST/SGOT) 29, Alanine Aminotransferase (ALT/SGPT) 28, Alkaline Phosphatase 121H, Total Protein 5.8L, Albumin 1.4L, Globulin 4.4, Albumin/Globulin Ratio 0.3L, Triglycerides Level 135, Random Vancomycin Level 15.4 Height (Feet): 6 Height (Inches): 1.00 Weight (Pounds): 190 Objective Exam limited due to COVID status and to conserve PPE. Per discussion with RN. General: Male A&o x 0 On intubated, sedated HEENT: Normocephalic cephalic atraumatic, pupils equal round reactive to light and accommodation, nares patent and no symmetrical, no tonsillar exudates, mucous membranes moist CV: Regular rate regular rhythm, no murmurs, rubs, or gallops Pulm: Lungs coarse breath sounds bilaterally. No wheezes, rhonchi, or rales GI: Soft, nontender, nondistended, bowel sounds present Neuro: Moving all extremities Ext: No lower extremity edema bilaterally Skin: no rashes lesions or ulcers Msk: Joints symmetrical in upper extremity and lower extremity bilaterally, no joint swelling. Lymph: No lymphadenopathy in upper extremity and lower extremity Assessment/Plan Status: stable Assessment/Plan: 84 yo M w DM2, HTN, ? CKD admitted for Covid19 PNA with SAMEER # acute hypoxemia Resp failure 2/ covid PNA > s/p intubation on 11/07/20 # Covid PNA # Lactic acid elevation # elevated D dimer # Trop elevated - Patient full code. See Advanced care plan note. Discussed with family and son as spokesperson who confirmed code status to be full code. Will continue discussions as patient progresses - s/p IVF bolus in ED, will keep lung dry as much as possible - s/p decadron 6mg iv daily - solumedrol Q12hr (11/08 - ) - Remdesivir per ID (11/09 - ) - azithromycin (11/08 - ) - Vancomycin (11/09 - ) - Zosyn (11/09 - ) - Abx per ID - pulm consult: Chasity - ID consult: Steven - Cards consult - trend ABG: reviewed - Continue Ac/VC - propofol for sedation - monitor triglycerides - Wean vent as tolerated - s/p NG tube 11/07 for meds. Consider tube feeding? D/w Pulm - IV fluids per nephro #S. hominis bacteremia, Contaminant? Defer to ID #Bilateral superimposed pneumonia - ID consulted: Dr. Harris - Follow surveilance cultures - Vanc per pharm (11/08 - ) - Zosyn (11/08 - ) # Malnutrition #HTN, current normotensive # DM2 uncontrolled #hyperglycemia - increase detemir to 10 units BID - continue SSI - accuchecks - hypoglycemia protocol # SAMEER vs. SAMEER on CKD, likely prerenal vs. # Dehydration - renal consult - Gentle IV fluids - i/o monitor, montilla cath FENPPX DVTPPX: lovenox GI PPX: protonix Fluids: per nephro Diet: NPO PT/OT: deferred Code status: Full code Dispo: SNF eventually. Guarded prognosis. Family aware Reason for Continued Hospitalization: Hypoxia Time of my involvement, the patient's condition was critical with high potential for and/or physiologic deterioration secondary to acute hypoxic respiratory failure as delineated in the note above. On the above date of service, I spent a total of 38 minutes in the ICU evaluating, managing, and providing critical care services to this patient, including time spent documenting these activities, counseling patient/family, and coordinating care. Critical care services performed include: -Telemetry review -Hemodynamic measurement interpretation -Laboratory data review and interpretation -Vent setting reviewed, management -Discussion of care plans with patient, family, and/or surrogate decision makers -Discussion of patient's care with primary medical team, surgical team, and/or consulting service -Decision to obtain further radiologic evaluation, after consideration of the risk/benefit ratio -Review of most recent microbiology results assessment and modification of antimicrobial coverage -Discussion of patient's CODE STATUS and further advancement towards the ultimate goals of care. Plan outlined above discussed with patient/family, BAG BLEACHER, ICU team, and involved physician/consultants. Time of note not necessarily time patient was seen Bakari Lucio D.O. Nov 10, 2020 20:13
[2020-11-10] MEDS: Dyna-Hex 2% Top Sol 2oz TOPIC SCH (20:46)
[2020-11-10] MEDS: Enoxaparin 40mg Inj SUBQ SCH (21:00)
--- NOTE | 2020-11-10 22:00 | NUR ---
NURSE NOTES: skin remained intact, applied optifoam for skin protection Turned q 2hrs pRN with good skin care done. bilateral soft wrist restraint maintained for safety to avoid self extubation.
[2020-11-11] VITALS (46 sets, daily range): BP systolic 92–162; BP diastolic 37–69
--- NOTE | 2020-11-11 | NUR ---
NURSE NOTES: Accucheck with coverage, pls see EMAR,.
[2020-11-11] MEDS: NovoLOG Insulin Flexpen SUBQ SCH ×5 (00:22→23:49)
--- NOTE | 2020-11-11 02:39 | NUR ---
NURSE NOTES: Pt continuos to desat to 80s, blood gas was obtained and called to DR Gaspar with order to increase peep 15 Addendum: 11/11/20 at 0241 by MANDA ASH RN Wrong pt.
--- NOTE | 2020-11-11 04:00 | NUR ---
NURSE NOTES: complete bed bath with bed changed done, pt remained sedated with Propofol drip at 10mcg/kg/min, at RASS SCORE-2.
[2020-11-11 05:49] LABS: HEMATOCRIT 35.6 % (42.0-52.0); HEMOGLOBIN 11.8 G/DL (14.2-18.0); MEAN CORPUSCULAR VOLUME 94 FL (80-99); PLATELET COUNT 152 K/UL (150-450); RED BLOOD COUNT 3.77 M/UL (4.70-6.10); RED CELL DISTRIBUTION WIDTH 14.2 % (11.6-14.8); WHITE BLOOD COUNT 10.9 K/UL (4.8-10.8)
--- NOTE | 2020-11-11 06:00 | NUR ---
NURSE NOTES: No resp. distress noted, vss, remained sedated with propofol drip to RASS SCORE-2
[2020-11-11 06:02] LABS: ALBUMIN 1.4 G/DL (3.4-5.0); ALBUMIN/GLOBULIN RATIO 0.3 (1.0-2.7); BILIRUBIN,DIRECT 0.5 MG/DL (0.0-0.3); BILIRUBIN,TOTAL 0.9 MG/DL (0.2-1.0); CALCIUM 7.1 MG/DL (8.5-10.1); CREATININE 1.6 MG/DL (0.55-1.30); POTASSIUM 4.4 MMOL/L (3.5-5.1)
[2020-11-11 06:33] LABS: PHOSPHORUS 4.7 MG/DL (2.5-4.9)
--- NOTE | 2020-11-11 07:26 | NUR ---
NURSE HAND-OFF REPORT: Latest Vital Signs: Temperature 98.4 , Pulse 80 , B/P 138 /51 , Respiratory Rate 20 , O2 SAT 96 , Mechanical Ventilator, O2 Flow Rate . Vital Sign Comment: EKG Rhythm: Sinus Rhythm Rhythm change?: N MD Notified?: - MD Response: Latest Blackwell Fall Score: 50 Fall Risk: High Risk Safety Measures: Call light Within Reach, Bed Alarm Zone 1, Side Rails Side Rails x3, Bed position Low and Locked. Fall Precautions: Yellow Socks Yellow Gown Door Sign Patient Fall Education Report given to Lisa HOWELL.
--- NOTE | 2020-11-11 07:30 | NUR ---
NURSE NOTES: Patient stable at this time. Sedated at RASS -2. RR even and unlabored ventilated through ETT. Breath sounds diminished cardiac sounds benign. Bowel sounds present. Radial pulses bounding with BL soft wrist restraints on with good ROM, circulation and sensation. Douglas draining well to gravity. RT femoral TLC flushed and patent with dressing dry and intact. Fentanyl 150mcg, Propofol 20mcg and Dopamine 8mcg infusing. Side rails upx2, call light within reach, bed low and locked. OGT at 55cm. KUB ordered. Addendum: 11/11/20 at 1949 by JENNIFER GARCIA RN Patient not on Fentanyl or Dopamine. Propofol at 20mcg.
--- NOTE | 2020-11-11 08:38 | Cardiology Progress Note ---
Assessment/Plan Status: stable Assessment/Plan ASSESSMENT -COVID -Gram positive sepsis -Respiratory failure -Elevated lactate -Elevated D dimer -HTN -SAMEER -Hyperkalemia -Elevated troponin -Diabetes PLAN: Continue pulmonary toilet, vent per ICU/pulmonary Prone positioning prn Continue decadron Consider remdesivir Insulin gtt Continue lovenox Echocardiogram pending Trend troponin Hold blood pressure medications Critical care services performed include: 35 minutes -Telemetry review -Hemodynamic measurement interpretation -Laboratory data review and interpretation -Bipap setting reviewed, management -Discussion of care plans with patient, family, and/or surrogate decision makers -Discussion of patient's care with primary medical team, surgical team, and/or consulting service -Decision to obtain further radiologic evaluation, after consideration of the risk/benefit ratio -CRRT management including evaluation for appropriateness -Review of most recent microbiology results assessment and modification of antimicrobial coverage -Discussion of patient's CODE STATUS and further advancement towards the ultimate goals of care. Subjective Cardiovascular: Reports: no symptoms Respiratory: Reports: no symptoms Gastrointestinal/Abdominal: Reports: no symptoms Genitourinary: Reports: no symptoms Subjective Patient remains sedated no proprol and ventilated with increased PEEP requirements, CV status stable, no arrhythmias Objective Last 24 Hour Vital Signs Date Time Temp Pulse Resp B/P (MAP) Pulse Ox O2 Delivery O2 Flow Rate FiO2 11/11/20 06:30 80 20 138/51 (80) 96 11/11/20 06:00 73 23 125/43 (70) 96 11/11/20 06:00 21 138/51 Mechanical Ventilator 100 11/11/20 05:30 75 22 110/48 (68) 97 11/11/20 05:00 74 24 101/43 (62) 96 11/11/20 05:00 24 110/48 Mechanical Ventilator 100 11/11/20 04:30 74 23 102/42 (62) 95 11/11/20 04:00 98.4 82 20 115/42 (66) 95 11/11/20 04:00 23 102/42 Mechanical Ventilator 100 11/11/20 04:00 Mechanical Ventilator 11/11/20 04:00 79 11/11/20 04:00 60 11/11/20 03:19 76 23 60 11/11/20 03:00 22 121/42 Mechanical Ventilator 100 11/11/20 02:45 88 18 138/52 (80) 94 11/11/20 02:30 90 19 144/51 (82) 94 11/11/20 02:15 93 21 136/50 (78) 94 11/11/20 02:00 19 144/51 Mechanical Ventilator 100 11/11/20 02:00 91 16 144/53 (83) 96 11/11/20 01:45 88 17 145/52 (83) 97 11/11/20 01:30 87 17 151/51 (84) 97 11/11/20 01:15 89 16 97 11/11/20 01:00 82 16 136/47 (76) 96 11/11/20 01:00 16 136/47 Mechanical Ventilator 100 11/11/20 00:45 81 20 112/50 (70) 93 11/11/20 00:30 78 27 92/37 (55) 89 11/11/20 00:15 87 16 130/48 (75) 93 11/11/20 00:00 99.0 84 16 138/50 (79) 94 11/11/20 00:00 75 11/11/20 00:00 Mechanical Ventilator 11/11/20 00:00 18 92/37 Mechanical Ventilator 100 11/11/20 00:00 60 11/10/20 23:45 84 19 125/52 (76) 98 11/10/20 23:30 78 19 134/47 (76) 96 11/10/20 23:15 80 16 125/60 (81) 96 11/10/20 23:08 77 20 60 11/10/20 23:00 18 134/47 Mechanical Ventilator 100 11/10/20 23:00 73 19 110/51 (70) 96 11/10/20 22:45 74 17 111/52 (71) 96 11/10/20 22:30 72 19 110/37 (61) 96 11/10/20 22:15 73 18 110/50 (70) 97 11/10/20 22:00 67 20 114/42 (66) 97 11/10/20 22:00 18 110/37 Mechanical Ventilator 100 11/10/20 21:45 68 17 110/50 (70) 97 11/10/20 21:30 63 22 111/46 (67) 97 11/10/20 21:15 59 24 109/55 (73) 97 11/10/20 21:00 61 21 107/43 (64) 98 11/10/20 21:00 21 111/46 Mechanical Ventilator 100 20 20:46 20 106/42 Mechanical Ventilator 70 11/10/20 20:45 61 20 110/55 (73) 98 20 20:30 62 22 106/42 (63) 98 20 20:15 60 24 110/52 (71) 96 11/10/20 20:00 98.0 61 23 101/47 (65) 95 11/10/20 20:00 Mechanical Ventilator 11/10/20 20:00 22 106/42 Mechanical Ventilator 100 11/10/20 19:45 68 19 105/55 (72) 97 11/10/20 19:00 23 100/38 Endotracheal Tube 70 11/10/20 19:00 64 23 100/38 (58) 99 11/10/20 18:44 70 22 70 11/10/20 18:00 75 22 96/48 (64) 96 11/10/20 18:00 21 96/48 Endotracheal Tube 70 11/10/20 17:00 67 18 102/38 (59) 96 11/10/20 17:00 22 102/38 Endotracheal Tube 70 11/10/20 16:00 70 11/10/20 16:00 23 109/40 Endotracheal Tube 70 11/10/20 16:00 98.6 66 23 109/40 (63) 95 11/10/20 16:00 Mechanical Ventilator 11/10/20 16:00 65 11/10/20 15:48 64 24 70 11/10/20 15:00 23 129/41 Endotracheal Tube 70 11/10/20 15:00 80 20 129/41 (70) 96 11/10/20 14:00 21 100/38 Endotracheal Tube 70 11/10/20 14:00 71 22 100/38 (58) 93 11/10/20 13:00 19 126/48 Endotracheal Tube 70 11/10/20 13:00 85 18 126/48 (74) 95 11/10/20 12:00 Mechanical Ventilator 11/10/20 12:00 19 125/45 Endotracheal Tube 70 11/10/20 12:00 98.3 76 18 125/45 (71) 95 11/10/20 12:00 72 11/10/20 12:00 70 11/10/20 11:46 77 26 70 11/10/20 11:00 19 103/36 Endotracheal Tube 70 11/10/20 11:00 64 21 103/36 (58) 94 11/10/20 10:00 74 20 123/41 (68) 95 11/10/20 10:00 18 123/41 Endotracheal Tube 70 11/10/20 09:21 70 11/10/20 09:00 20 94/40 Endotracheal Tube 70 11/10/20 09:00 64 20 94/40 (58) 98 General Appearance: on vent EENT: PERRL/EOMI, normal ENT inspection Neck: non-tender, normal alignment Rhythm: NSR Cardiovascular: normal peripheral pulses, normal rate, regular rhythm Respiratory/Chest: decreased breath sounds, crackles/rales Abdomen: normal bowel sounds, non tender, soft Neurologic: administrative assistant coordinator II-XII grossly normal, no motor/sensory deficits Intake and Output 11/10/20 11/11/20 19:00 07:00 Intake Total 781.536 ml 836.881 ml Balance 781.536 ml 836.881 ml Intake Oral 0 ml IV Total 781.536 ml 836.881 ml # Voids 650 680 # Bowel Movements 3 23 Laboratory Tests Test 11/10/20 21:36 11/11/20 04:11 11/11/20 07:57 POC Whole Blood Glucose 241 MG/DL (74-106) H White Blood Count 10.9 K/UL (4.8-10.8) H Red Blood Count 3.77 M/UL (4.70-6.10) L Hemoglobin 11.8 G/DL (14.2-18.0) L Hematocrit 35.6 % (42.0-52.0) L Mean Corpuscular Volume 94 FL (80-99) Mean Corpuscular Hemoglobin 31.3 PG (27.0-31.0) H Mean Corpuscular Hemoglobin Concent 33.1 G/DL (32.0-36.0) Red Cell Distribution Width 14.2 % (11.6-14.8) Platelet Count 152 K/UL (150-450) Mean Platelet Volume 7.5 FL (6.5-10.1) Neutrophils (%) (Auto) % (45.0-75.0) Lymphocytes (%) (Auto) % (20.0-45.0) Monocytes (%) (Auto) % (1.0-10.0) Eosinophils (%) (Auto) % (0.0-3.0) Basophils (%) (Auto) % (0.0-2.0) Neutrophils % (Manual) Pending Lymphocytes % (Manual) Pending Platelet Estimate Pending Platelet Morphology Pending Sodium Level 150 MMOL/L (136-145) H Potassium Level 4.4 MMOL/L (3.5-5.1) Chloride Level 118 MMOL/L (98-107) H Carbon Dioxide Level 27 MMOL/L (21-32) Anion Gap 5 mmol/L (5-15) Blood Urea Nitrogen 99 mg/dL (7-18) H Creatinine 1.6 MG/DL (0.55-1.30) H Estimat Glomerular Filtration Rate 41.4 mL/min (>60) Glucose Level 229 MG/DL (74-106) H Calcium Level 7.1 MG/DL (8.5-10.1) L Phosphorus Level 4.7 MG/DL (2.5-4.9) Magnesium Level 2.7 MG/DL (1.8-2.4) H Total Bilirubin 0.9 MG/DL (0.2-1.0) Direct Bilirubin 0.5 MG/DL (0.0-0.3) H Aspartate Amino Transf (AST/SGOT) 28 U/L (15-37) Alanine Aminotransferase (ALT/SGPT) 24 U/L (12-78) Alkaline Phosphatase 114 U/L (46-116) Total Protein 5.8 G/DL (6.4-8.2) L Albumin 1.4 G/DL (3.4-5.0) L Globulin 4.4 g/dL Albumin/Globulin Ratio 0.3 (1.0-2.7) L Arterial Blood pH 7.319 (7.350-7.450) Arterial Blood Partial Pressure CO2 49.7 mmHg (35.0-45.0) H Arterial Blood Partial Pressure O2 64.5 mmHg (75.0-100.0) L Arterial Blood HCO3 25.0 mmol/L (22.0-26.0) Arterial Blood Oxygen Saturation 90.5 % (95-100) L Arterial Blood Base Excess -1.6 (-2-2) Jonathan Test Positive Rayo Muñoz MD Nov 11, 2020 08:38
[2020-11-11] MEDS ORDERED: D5NS 1000ml IV ONE (09:31)
[2020-11-11] MEDS ORDERED: Tubing IV Secondary IV ONE (09:31)
[2020-11-11] MEDS ORDERED: 1/2 NS 1000ml IV ONE (09:31)
[2020-11-11] MEDS: Pantoprazole Inj IVP SCH (09:34)
[2020-11-11] MEDS: Piperacillin/Tazobactam 3.375 GM in NS 110 ML IVPB SCH ×2 (09:34→21:17)
[2020-11-11] MEDS: Solu-MEDROL 40mg Inj IVP SCH ×2 (09:34→21:14)
[2020-11-11] MEDS: propofoL 1,000mg/100ml 100 ML IV SCH ×2 (09:36→20:11)
[2020-11-11] MEDS: Levemir Flexpen SUBQ SCH ×2 (09:51→21:12)
--- NOTE | 2020-11-11 10:00 | NUR ---
NURSE NOTES: ETT now at 25cm again and retaining volumes. STAT CXR to confirm placement.
--- NOTE | 2020-11-11 10:13 | Nephrology Progress Note ---
Assessment/Plan Plan #SAMEER on CKD- likely pre-renal azotemia in the setting of sepsis #hypnatremia # acute hypoxemia Resp failure 2/2 covid PNA requiring BIPAP # Covid PNA # Lactic acid elevation # Malnutrition #HTN, current normotensive # elevated D dimer # Trop elevated # DM2 uncontrolled - - gentle hydration- continue D5w 75cc/hr - intubated - monitor volume status - monitor ABG - monitor BMP, mag and phos daily - strict I&Os - daily weights - echo - defer renal US - antibiotic per ID time spent 65min Subjective ROS Limited/Unobtainable: Yes Subjective intubated Cr 1.6 sodium 150 K 4.4 Objective Objective Last 24 Hour Vital Signs Date Time Temp Pulse Resp B/P (MAP) Pulse Ox O2 Delivery O2 Flow Rate FiO2 11/11/20 09:36 19 144/54 Endotracheal Tube 60 11/11/20 06:30 80 20 138/51 (80) 96 11/11/20 06:00 73 23 125/43 (70) 96 11/11/20 06:00 21 138/51 Mechanical Ventilator 100 11/11/20 05:30 75 22 110/48 (68) 97 11/11/20 05:00 74 24 101/43 (62) 96 11/11/20 05:00 24 110/48 Mechanical Ventilator 100 11/11/20 04:30 74 23 102/42 (62) 95 11/11/20 04:00 98.4 82 20 115/42 (66) 95 11/11/20 04:00 23 102/42 Mechanical Ventilator 100 11/11/20 04:00 Mechanical Ventilator 11/11/20 04:00 79 11/11/20 04:00 60 11/11/20 03:19 76 23 60 11/11/20 03:00 22 121/42 Mechanical Ventilator 100 11/11/20 02:45 88 18 138/52 (80) 94 11/11/20 02:30 90 19 144/51 (82) 94 11/11/20 02:15 93 21 136/50 (78) 94 11/11/20 02:00 19 144/51 Mechanical Ventilator 100 11/11/20 02:00 91 16 144/53 (83) 96 11/11/20 01:45 88 17 145/52 (83) 97 11/11/20 01:30 87 17 151/51 (84) 97 11/11/20 01:15 89 16 97 11/11/20 01:00 82 16 136/47 (76) 96 11/11/20 01:00 16 136/47 Mechanical Ventilator 100 11/11/20 00:45 81 20 112/50 (70) 93 11/11/20 00:30 78 27 92/37 (55) 89 11/11/20 00:15 87 16 130/48 (75) 93 11/11/20 00:00 99.0 84 16 138/50 (79) 94 11/11/20 00:00 75 11/11/20 00:00 Mechanical Ventilator 11/11/20 00:00 18 92/37 Mechanical Ventilator 100 11/11/20 00:00 60 11/10/20 23:45 84 19 125/52 (76) 98 11/10/20 23:30 78 19 134/47 (76) 96 11/10/20 23:15 80 16 125/60 (81) 96 11/10/20 23:08 77 20 60 11/10/20 23:00 18 134/47 Mechanical Ventilator 100 11/10/20 23:00 73 19 110/51 (70) 96 11/10/20 22:45 74 17 111/52 (71) 96 11/10/20 22:30 72 19 110/37 (61) 96 11/10/20 22:15 73 18 110/50 (70) 97 11/10/20 22:00 67 20 114/42 (66) 97 11/10/20 22:00 18 110/37 Mechanical Ventilator 100 11/10/20 21:45 68 17 110/50 (70) 97 11/10/20 21:30 63 22 111/46 (67) 97 11/10/20 21:15 59 24 109/55 (73) 97 11/10/20 21:00 61 21 107/43 (64) 98 11/10/20 21:00 21 111/46 Mechanical Ventilator 100 11/10/20 20:46 20 106/42 Mechanical Ventilator 70 20 20:45 61 20 110/55 (73) 98 11/10/20 20:30 62 22 106/42 (63) 98 11/10/20 20:15 60 24 110/52 (71) 96 11/10/20 20:00 98.0 61 23 101/47 (65) 95 11/10/20 20:00 Mechanical Ventilator 11/10/20 20:00 22 106/42 Mechanical Ventilator 100 11/10/20 19:45 68 19 105/55 (72) 97 11/10/20 19:00 23 100/38 Endotracheal Tube 70 11/10/20 19:00 64 23 100/38 (58) 99 11/10/20 18:44 70 22 70 11/10/20 18:00 75 22 96/48 (64) 96 11/10/20 18:00 21 96/48 Endotracheal Tube 70 11/10/20 17:00 67 18 102/38 (59) 96 11/10/20 17:00 22 102/38 Endotracheal Tube 70 11/10/20 16:00 70 11/10/20 16:00 23 109/40 Endotracheal Tube 70 11/10/20 16:00 98.6 66 23 109/40 (63) 95 11/10/20 16:00 Mechanical Ventilator 11/10/20 16:00 65 11/10/20 15:48 64 24 70 11/10/20 15:00 23 129/41 Endotracheal Tube 70 11/10/20 15:00 80 20 129/41 (70) 96 11/10/20 14:00 21 100/38 Endotracheal Tube 70 11/10/20 14:00 71 22 100/38 (58) 93 11/10/20 13:00 19 126/48 Endotracheal Tube 70 11/10/20 13:00 85 18 126/48 (74) 95 11/10/20 12:00 Mechanical Ventilator 11/10/20 12:00 19 125/45 Endotracheal Tube 70 11/10/20 12:00 98.3 76 18 125/45 (71) 95 11/10/20 12:00 72 11/10/20 12:00 70 11/10/20 11:46 77 26 70 11/10/20 11:00 19 103/36 Endotracheal Tube 70 11/10/20 11:00 64 21 103/36 (58) 94 Intake and Output 11/10/20 11/11/20 19:00 07:00 Intake Total 781.536 ml 836.881 ml Balance 781.536 ml 836.881 ml Intake Oral 0 ml IV Total 781.536 ml 836.881 ml # Voids 650 680 # Bowel Movements 3 23 Laboratory Tests 11/10/20 21:36: POC Whole Blood Glucose 241H 11/11/20 04:11: White Blood Count 10.9H, Red Blood Count 3.77L, Hemoglobin 11.8L, Hematocrit 35.6L, Mean Corpuscular Volume 94, Mean Corpuscular Hemoglobin 31.3H, Mean Corpuscular Hemoglobin Concent 33.1, Red Cell Distribution Width 14.2, Platelet Count 152, Mean Platelet Volume 7.5, Neutrophils (%) (Auto) , Lymphocytes (%) (Auto) , Monocytes (%) (Auto) , Eosinophils (%) (Auto) , Basophils (%) (Auto) , Differential Total Cells Counted 100, Neutrophils % (Manual) 97H, Lymphocytes % (Manual) 2L, Monocytes % (Manual) 1, Eosinophils % (Manual) 0, Basophils % (Manual) 0, Band Neutrophils 0, Nucleated Red Blood Cells 1, Platelet Estimate Adequate, Platelet Morphology Normal, Hypochromasia 1+, Sodium Level 150H, Potassium Level 4.4, Chloride Level 118H, Carbon Dioxide Level 27, Anion Gap 5, Blood Urea Nitrogen 99H, Creatinine 1.6H, Estimat Glomerular Filtration Rate 41.4, Glucose Level 229H, Calcium Level 7.1L, Phosphorus Level 4.7, Magnesium Level 2.7H, Total Bilirubin 0.9, Direct Bilirubin 0.5H, Aspartate Amino Transf (AST/SGOT) 28, Alanine Aminotransferase (ALT/SGPT) 24, Alkaline Phosphatase 114, Total Protein 5.8L, Albumin 1.4L, Globulin 4.4, Albumin/Globulin Ratio 0.3L 11/11/20 07:57: Arterial Blood pH 7.319L, Arterial Blood Partial Pressure CO2 49.7H, Arterial Blood Partial Pressure O2 64.5L, Arterial Blood HCO3 25.0, Arterial Blood Oxygen Saturation 90.5L, Arterial Blood Base Excess -1.6, Jonathan Test Positive 11/11/20 09:43: POC Whole Blood Glucose 213H Height (Feet): 6 Height (Inches): 1.00 Weight (Pounds): 190 Kulwant Hong M.D. Nov 11, 2020 10:13
--- NOTE | 2020-11-11 11:49 | NUR ---
NURSE NOTES: Patient stable at this time. No s/sx of pain or distress. Dr Gaspar at bedside. Will review CXR.
--- NOTE | 2020-11-11 11:56 | Diagnostic Imaging Report ---
Indication: Shortness of breath Technique: One view of the chest Comparison: 11/09/2020 Findings: Stable satisfactory positions of endotracheal and orogastric tubes. Bilateral infiltrates are unchanged. Heart size is borderline enlarged. Impression: Unchanged, over one day, findings as above.
--- NOTE | 2020-11-11 12:00 | NUR ---
NURSE NOTES: Patient stable. No s/sx of pain or distress.
--- NOTE | 2020-11-11 12:09 | Pulmonology Progress Note ---
Subjective ROS Limited/Unobtainable: Yes Interval Events: remains intubated Constitutional: Reports: no symptoms HEENT: Repors: no symptoms Respiratory: Reports: no symptoms Cardiovascular: Reports: no symptoms Gastrointestinal/Abdominal: Reports: no symptoms Allergies: Coded Allergies: No Known Allergies (Unverified , 11/06/20) Objective Last 24 Hour Vital Signs Date Time Temp Pulse Resp B/P (MAP) Pulse Ox O2 Delivery O2 Flow Rate FiO2 11/11/20 10:00 95 23 151/53 (85) 91 11/11/20 09:36 19 144/54 Endotracheal Tube 60 11/11/20 09:30 91 19 144/54 (84) 93 11/11/20 09:00 86 18 143/56 (85) 94 11/11/20 08:30 82 20 140/52 (81) 94 11/11/20 08:00 Mechanical Ventilator 11/11/20 08:00 80 11/11/20 08:00 60 11/11/20 08:00 98.6 81 19 139/54 (82) 95 11/11/20 07:30 77 21 122/53 (76) 94 11/11/20 07:00 77 24 117/45 (69) 95 11/11/20 06:30 80 20 138/51 (80) 96 11/11/20 06:00 73 23 125/43 (70) 96 11/11/20 06:00 21 138/51 Mechanical Ventilator 100 11/11/20 05:30 75 22 110/48 (68) 97 11/11/20 05:00 74 24 101/43 (62) 96 11/11/20 05:00 24 110/48 Mechanical Ventilator 100 11/11/20 04:30 74 23 102/42 (62) 95 11/11/20 04:00 98.4 82 20 115/42 (66) 95 11/11/20 04:00 23 102/42 Mechanical Ventilator 100 11/11/20 04:00 Mechanical Ventilator 11/11/20 04:00 79 11/11/20 04:00 60 11/11/20 03:19 76 23 60 11/11/20 03:00 22 121/42 Mechanical Ventilator 100 11/11/20 02:45 88 18 138/52 (80) 94 11/11/20 02:30 90 19 144/51 (82) 94 11/11/20 02:15 93 21 136/50 (78) 94 11/11/20 02:00 19 144/51 Mechanical Ventilator 100 11/11/20 02:00 91 16 144/53 (83) 96 11/11/20 01:45 88 17 145/52 (83) 97 11/11/20 01:30 87 17 151/51 (84) 97 11/11/20 01:15 89 16 97 11/11/20 01:00 82 16 136/47 (76) 96 11/11/20 01:00 16 136/47 Mechanical Ventilator 100 11/11/20 00:45 81 20 112/50 (70) 93 11/11/20 00:30 78 27 92/37 (55) 89 11/11/20 00:15 87 16 130/48 (75) 93 11/11/20 00:00 99.0 84 16 138/50 (79) 94 11/11/20 00:00 75 11/11/20 00:00 Mechanical Ventilator 11/11/20 00:00 18 92/37 Mechanical Ventilator 100 11/11/20 00:00 60 11/10/20 23:45 84 19 125/52 (76) 98 11/10/20 23:30 78 19 134/47 (76) 96 11/10/20 23:15 80 16 125/60 (81) 96 11/10/20 23:08 77 20 60 11/10/20 23:00 18 134/47 Mechanical Ventilator 100 11/10/20 23:00 73 19 110/51 (70) 96 11/10/20 22:45 74 17 111/52 (71) 96 11/10/20 22:30 72 19 110/37 (61) 96 11/10/20 22:15 73 18 110/50 (70) 97 11/10/20 22:00 67 20 114/42 (66) 97 11/10/20 22:00 18 110/37 Mechanical Ventilator 100 11/10/20 21:45 68 17 110/50 (70) 97 11/10/20 21:30 63 22 111/46 (67) 97 11/10/20 21:15 59 24 109/55 (73) 97 11/10/20 21:00 61 21 107/43 (64) 98 11/10/20 21:00 21 111/46 Mechanical Ventilator 100 11/10/20 20:46 20 106/42 Mechanical Ventilator 70 11/10/20 20:45 61 20 110/55 (73) 98 11/10/20 20:30 62 22 106/42 (63) 98 11/10/20 20:15 60 24 110/52 (71) 96 11/10/20 20:00 98.0 61 23 101/47 (65) 95 11/10/20 20:00 Mechanical Ventilator 11/10/20 20:00 22 106/42 Mechanical Ventilator 100 11/10/20 19:45 68 19 105/55 (72) 97 11/10/20 19:00 23 100/38 Endotracheal Tube 70 11/10/20 19:00 64 23 100/38 (58) 99 11/10/20 18:44 70 22 70 11/10/20 18:00 75 22 96/48 (64) 96 11/10/20 18:00 21 96/48 Endotracheal Tube 70 11/10/20 17:00 67 18 102/38 (59) 96 11/10/20 17:00 22 102/38 Endotracheal Tube 70 11/10/20 16:00 70 11/10/20 16:00 23 109/40 Endotracheal Tube 70 11/10/20 16:00 98.6 66 23 109/40 (63) 95 11/10/20 16:00 Mechanical Ventilator 11/10/20 16:00 65 11/10/20 15:48 64 24 70 11/10/20 15:00 23 129/41 Endotracheal Tube 70 11/10/20 15:00 80 20 129/41 (70) 96 11/10/20 14:00 21 100/38 Endotracheal Tube 70 11/10/20 14:00 71 22 100/38 (58) 93 11/10/20 13:00 19 126/48 Endotracheal Tube 70 11/10/20 13:00 85 18 126/48 (74) 95 Intake and Output 11/10/20 11/11/20 19:00 07:00 Intake Total 781.536 ml 836.881 ml Balance 781.536 ml 836.881 ml Intake Oral 0 ml IV Total 781.536 ml 836.881 ml # Voids 650 680 # Bowel Movements 3 23 General Appearance: no acute distress HEENT: normocephalic Respiratory: chest wall non-tender, lungs clear Cardiovascular: normal peripheral pulses, normal rate Abdomen: normal bowel sounds Laboratory Tests 11/10/20 21:36: POC Whole Blood Glucose 241H 11/11/20 04:11: White Blood Count 10.9H, Red Blood Count 3.77L, Hemoglobin 11.8L, Hematocrit 35.6L, Mean Corpuscular Volume 94, Mean Corpuscular Hemoglobin 31.3H, Mean Corpuscular Hemoglobin Concent 33.1, Red Cell Distribution Width 14.2, Platelet Count 152, Mean Platelet Volume 7.5, Neutrophils (%) (Auto) , Lymphocytes (%) (Auto) , Monocytes (%) (Auto) , Eosinophils (%) (Auto) , Basophils (%) (Auto) , Differential Total Cells Counted 100, Neutrophils % (Manual) 97H, Lymphocytes % (Manual) 2L, Monocytes % (Manual) 1, Eosinophils % (Manual) 0, Basophils % (Manual) 0, Band Neutrophils 0, Nucleated Red Blood Cells 1, Platelet Estimate Adequate, Platelet Morphology Normal, Hypochromasia 1+, Sodium Level 150H, Potassium Level 4.4, Chloride Level 118H, Carbon Dioxide Level 27, Anion Gap 5, Blood Urea Nitrogen 99H, Creatinine 1.6H, Estimat Glomerular Filtration Rate 41.4, Glucose Level 229H, Calcium Level 7.1L, Phosphorus Level 4.7, Magnesium Level 2.7H, Total Bilirubin 0.9, Direct Bilirubin 0.5H, Aspartate Amino Transf (AST/SGOT) 28, Alanine Aminotransferase (ALT/SGPT) 24, Alkaline Phosphatase 114, Total Protein 5.8L, Albumin 1.4L, Globulin 4.4, Albumin/Globulin Ratio 0.3L 11/11/20 07:57: Arterial Blood pH 7.319L, Arterial Blood Partial Pressure CO2 49.7H, Arterial Blood Partial Pressure O2 64.5L, Arterial Blood HCO3 25.0, Arterial Blood Oxygen Saturation 90.5L, Arterial Blood Base Excess -1.6, Jonathan Test Positive 11/11/20 09:43: POC Whole Blood Glucose 213H Current Medications Medications (Trade) Dose Ordered Sig/Violet Route PRN Reason Start Time Stop Time Status Last Admin Dose Admin Azithromycin 500 mg/Dextrose 275 ml @ 275 mls/hr Q24HRS IV 11/07/20 17:00 11/13/20 17:59 11/10/20 17:08 Chlorhexidine Gluconate (Patt-Hex 2%) 1 applic DAILY@2000 TOPIC 11/09/20 20:00 02/07/21 19:59 11/10/20 20:46 Dextrose 500 ml @ 75 mls/hr EVERY 6 HOURS IV 11/11/20 13:00 12/11/20 12:59 Dextrose (Dextrose 50%) 25 ml Q30M PRN IV Hypoglycemia 11/06/20 20:00 02/04/21 19:59 Dextrose (Dextrose 50%) 50 ml Q30M PRN IV Hypoglycemia 11/06/20 20:00 02/04/21 19:59 Dopamine HCl/ Dextrose 250 ml @ 0 mls/hr Q24H PRN IV For hypotension 11/09/20 13:00 11/12/20 13:00 Enoxaparin Sodium (Lovenox) 40 mg Q24H SUBQ 11/07/20 21:00 02/05/21 20:59 11/09/20 20:52 Flumazenil (Romazicon) 0.2 mg NEEDED PRN IV Sedation reversal 11/06/20 20:00 Insulin Aspart (NovoLOG) EVERY 6 HOURS SUBQ 11/08/20 12:00 02/05/21 16:29 11/11/20 06:16 Insulin Detemir (Levemir) 10 units EVERY 12 HOURS SUBQ 11/09/20 11:15 02/05/21 20:59 11/11/20 09:51 Methylprednisolone Sodium Succinate (Solu-MEDROL) 40 mg Q12HR IVP 11/08/20 12:00 11/15/20 11:59 11/11/20 09:34 Naloxone HCl (Narcan) 0.4 mg NEEDED PRN IVP RR less than 6/min 11/06/20 20:00 02/04/21 19:59 Ondansetron HCl (Zofran) 4 mg Q6H PRN IVP Nausea & Vomiting 11/06/20 20:00 12/06/20 19:59 Pantoprazole (Protonix) 40 mg DAILY IVP 11/08/20 09:00 12/08/20 08:59 11/11/20 09:34 Piperacillin Sod/ Tazobactam Sod 3.375 gm/Sodium Chloride 110 ml @ 27.5 mls/hr EVERY 12 HOURS IVPB 11/08/20 13:00 11/13/20 12:59 11/11/20 09:34 Propofol 100 ml @ 2.585 mls/ hr Q12H IV 11/09/20 20:00 11/11/20 19:59 11/11/20 09:36 Remdesivir 100 mg/ Sodium Chloride 250 ml @ 250 mls/hr Q24H IV 11/09/20 14:00 11/12/20 14:59 11/10/20 13:52 Assessment/Plan Assessment/Plan IMPRESSION: 1. COVID-19 pneumonia. 2. Diabetes mellitus. 3. Hypertension. 4. Hyperkalemia. 5. CKD. 6. Metabolic acidosis. 7. Respiratory Failure; Acute Lung Injury DISCUSSION: Continue broad-spectrum antibiotics. Continue vent/AC mode Currently FiO2 60%; PEEP 5 Endo tracheal tube adjusted; pt holding volumes on vent now Blood sugar control, Continue Decadron. On propofol Check labs and ABG AM CXR unchanged Rahat Gaspar M.D. Rahat Gaspar MD Nov 11, 2020 12:09
--- NOTE | 2020-11-11 12:37 | Infectious Diseases Prog Note ---
Assessment/Plan Assessment/Plan antibiotics : zosyn, azithromycin remdesivir A 1. COVID 19 pneumonia on 70 % Fi O2, saturation 95 % 2. respiratory failure 3. diabetes mellitus 4. hypertension 5. renal failure improving P 1. continue zosyn 2. d/c azithromycin 3. continue remdesivir day 4 4. continue solumedrol 5. continue isolation Subjective ROS Limited/Unobtainable: Yes Allergies: Coded Allergies: No Known Allergies (Unverified , 11/06/20) Objective Last 24 Hour Vital Signs Date Time Temp Pulse Resp B/P (MAP) Pulse Ox O2 Delivery O2 Flow Rate FiO2 11/11/20 10:00 95 23 151/53 (85) 91 11/11/20 09:36 19 144/54 Endotracheal Tube 60 11/11/20 09:30 91 19 144/54 (84) 93 11/11/20 09:00 86 18 143/56 (85) 94 11/11/20 08:30 82 20 140/52 (81) 94 11/11/20 08:00 Mechanical Ventilator 11/11/20 08:00 80 11/11/20 08:00 60 11/11/20 08:00 98.6 81 19 139/54 (82) 95 11/11/20 07:30 77 21 122/53 (76) 94 11/11/20 07:00 77 24 117/45 (69) 95 11/11/20 06:30 80 20 138/51 (80) 96 11/11/20 06:00 73 23 125/43 (70) 96 11/11/20 06:00 21 138/51 Mechanical Ventilator 100 11/11/20 05:30 75 22 110/48 (68) 97 11/11/20 05:00 74 24 101/43 (62) 96 11/11/20 05:00 24 110/48 Mechanical Ventilator 100 11/11/20 04:30 74 23 102/42 (62) 95 11/11/20 04:00 98.4 82 20 115/42 (66) 95 11/11/20 04:00 23 102/42 Mechanical Ventilator 100 11/11/20 04:00 Mechanical Ventilator 11/11/20 04:00 79 11/11/20 04:00 60 11/11/20 03:19 76 23 60 11/11/20 03:00 22 121/42 Mechanical Ventilator 100 11/11/20 02:45 88 18 138/52 (80) 94 11/11/20 02:30 90 19 144/51 (82) 94 11/11/20 02:15 93 21 136/50 (78) 94 11/11/20 02:00 19 144/51 Mechanical Ventilator 100 11/11/20 02:00 91 16 144/53 (83) 96 11/11/20 01:45 88 17 145/52 (83) 97 11/11/20 01:30 87 17 151/51 (84) 97 11/11/20 01:15 89 16 97 11/11/20 01:00 82 16 136/47 (76) 96 11/11/20 01:00 16 136/47 Mechanical Ventilator 100 11/11/20 00:45 81 20 112/50 (70) 93 11/11/20 00:30 78 27 92/37 (55) 89 11/11/20 00:15 87 16 130/48 (75) 93 11/11/20 00:00 99.0 84 16 138/50 (79) 94 11/11/20 00:00 75 11/11/20 00:00 Mechanical Ventilator 11/11/20 00:00 18 92/37 Mechanical Ventilator 100 11/11/20 00:00 60 11/10/20 23:45 84 19 125/52 (76) 98 11/10/20 23:30 78 19 134/47 (76) 96 11/10/20 23:15 80 16 125/60 (81) 96 11/10/20 23:08 77 20 60 11/10/20 23:00 18 134/47 Mechanical Ventilator 100 11/10/20 23:00 73 19 110/51 (70) 96 11/10/20 22:45 74 17 111/52 (71) 96 11/10/20 22:30 72 19 110/37 (61) 96 11/10/20 22:15 73 18 110/50 (70) 97 11/10/20 22:00 67 20 114/42 (66) 97 11/10/20 22:00 18 110/37 Mechanical Ventilator 100 11/10/20 21:45 68 17 110/50 (70) 97 11/10/20 21:30 63 22 111/46 (67) 97 11/10/20 21:15 59 24 109/55 (73) 97 11/10/20 21:00 61 21 107/43 (64) 98 11/10/20 21:00 21 111/46 Mechanical Ventilator 100 11/10/20 20:46 20 106/42 Mechanical Ventilator 70 20 20:45 61 20 110/55 (73) 98 11/10/20 20:30 62 22 106/42 (63) 98 20 20:15 60 24 110/52 (71) 96 11/10/20 20:00 98.0 61 23 101/47 (65) 95 11/10/20 20:00 Mechanical Ventilator 11/10/20 20:00 22 106/42 Mechanical Ventilator 100 11/10/20 19:45 68 19 105/55 (72) 97 11/10/20 19:00 23 100/38 Endotracheal Tube 70 11/10/20 19:00 64 23 100/38 (58) 99 11/10/20 18:44 70 22 70 11/10/20 18:00 75 22 96/48 (64) 96 11/10/20 18:00 21 96/48 Endotracheal Tube 70 11/10/20 17:00 67 18 102/38 (59) 96 11/10/20 17:00 22 102/38 Endotracheal Tube 70 11/10/20 16:00 70 11/10/20 16:00 23 109/40 Endotracheal Tube 70 11/10/20 16:00 98.6 66 23 109/40 (63) 95 11/10/20 16:00 Mechanical Ventilator 11/10/20 16:00 65 11/10/20 15:48 64 24 70 11/10/20 15:00 23 129/41 Endotracheal Tube 70 11/10/20 15:00 80 20 129/41 (70) 96 11/10/20 14:00 21 100/38 Endotracheal Tube 70 11/10/20 14:00 71 22 100/38 (58) 93 11/10/20 13:00 19 126/48 Endotracheal Tube 70 11/10/20 13:00 85 18 126/48 (74) 95 Height (Feet): 6 Height (Inches): 1.00 Weight (Pounds): 190 HEENT: other - intubated Laboratory Tests Test 11/10/20 21:36 11/11/20 04:11 11/11/20 07:57 11/11/20 09:43 POC Whole Blood Glucose 241 MG/DL (74-106) H 213 MG/DL (74-106) H White Blood Count 10.9 K/UL (4.8-10.8) H Red Blood Count 3.77 M/UL (4.70-6.10) L Hemoglobin 11.8 G/DL (14.2-18.0) L Hematocrit 35.6 % (42.0-52.0) L Mean Corpuscular Volume 94 FL (80-99) Mean Corpuscular Hemoglobin 31.3 PG (27.0-31.0) H Mean Corpuscular Hemoglobin Concent 33.1 G/DL (32.0-36.0) Red Cell Distribution Width 14.2 % (11.6-14.8) Platelet Count 152 K/UL (150-450) Mean Platelet Volume 7.5 FL (6.5-10.1) Neutrophils (%) (Auto) % (45.0-75.0) Lymphocytes (%) (Auto) % (20.0-45.0) Monocytes (%) (Auto) % (1.0-10.0) Eosinophils (%) (Auto) % (0.0-3.0) Basophils (%) (Auto) % (0.0-2.0) Differential Total Cells Counted 100 Neutrophils % (Manual) 97 % (45-75) H Lymphocytes % (Manual) 2 % (20-45) L Monocytes % (Manual) 1 % (1-10) Eosinophils % (Manual) 0 % (0-3) Basophils % (Manual) 0 % (0-2) Band Neutrophils 0 % (0-8) Nucleated Red Blood Cells 1 /100 WBC Platelet Estimate Adequate Platelet Morphology Normal Hypochromasia 1+ Sodium Level 150 MMOL/L (136-145) H Potassium Level 4.4 MMOL/L (3.5-5.1) Chloride Level 118 MMOL/L (98-107) H Carbon Dioxide Level 27 MMOL/L (21-32) Anion Gap 5 mmol/L (5-15) Blood Urea Nitrogen 99 mg/dL (7-18) H Creatinine 1.6 MG/DL (0.55-1.30) H Estimat Glomerular Filtration Rate 41.4 mL/min (>60) Glucose Level 229 MG/DL (74-106) H Calcium Level 7.1 MG/DL (8.5-10.1) L Phosphorus Level 4.7 MG/DL (2.5-4.9) Magnesium Level 2.7 MG/DL (1.8-2.4) H Total Bilirubin 0.9 MG/DL (0.2-1.0) Direct Bilirubin 0.5 MG/DL (0.0-0.3) H Aspartate Amino Transf (AST/SGOT) 28 U/L (15-37) Alanine Aminotransferase (ALT/SGPT) 24 U/L (12-78) Alkaline Phosphatase 114 U/L (46-116) Total Protein 5.8 G/DL (6.4-8.2) L Albumin 1.4 G/DL (3.4-5.0) L Globulin 4.4 g/dL Albumin/Globulin Ratio 0.3 (1.0-2.7) L Arterial Blood pH 7.319 (7.350-7.450) Arterial Blood Partial Pressure CO2 49.7 mmHg (35.0-45.0) H Arterial Blood Partial Pressure O2 64.5 mmHg (75.0-100.0) L Arterial Blood HCO3 25.0 mmol/L (22.0-26.0) Arterial Blood Oxygen Saturation 90.5 % (95-100) L Arterial Blood Base Excess -1.6 (-2-2) Jonathan Test Positive Current Medications Medications (Trade) Dose Ordered Sig/Violet Route PRN Reason Start Time Stop Time Status Last Admin Dose Admin Azithromycin 500 mg/Dextrose 275 ml @ 275 mls/hr Q24HRS IV 11/07/20 17:00 11/13/20 17:59 11/10/20 17:08 Chlorhexidine Gluconate (Patt-Hex 2%) 1 applic DAILY@2000 TOPIC 11/09/20 20:00 02/07/21 19:59 11/10/20 20:46 Dextrose 500 ml @ 75 mls/hr EVERY 6 HOURS IV 11/11/20 13:00 12/11/20 12:59 Dextrose (Dextrose 50%) 25 ml Q30M PRN IV Hypoglycemia 11/06/20 20:00 02/04/21 19:59 Dextrose (Dextrose 50%) 50 ml Q30M PRN IV Hypoglycemia 11/06/20 20:00 02/04/21 19:59 Dopamine HCl/ Dextrose 250 ml @ 0 mls/hr Q24H PRN IV For hypotension 11/09/20 13:00 11/12/20 13:00 Enoxaparin Sodium (Lovenox) 40 mg Q24H SUBQ 11/07/20 21:00 02/05/21 20:59 11/09/20 20:52 Flumazenil (Romazicon) 0.2 mg NEEDED PRN IV Sedation reversal 11/06/20 20:00 Insulin Aspart (NovoLOG) EVERY 6 HOURS SUBQ 11/08/20 12:00 02/05/21 16:29 11/11/20 06:16 Insulin Detemir (Levemir) 10 units EVERY 12 HOURS SUBQ 11/09/20 11:15 02/05/21 20:59 11/11/20 09:51 Methylprednisolone Sodium Succinate (Solu-MEDROL) 40 mg Q12HR IVP 11/08/20 12:00 11/15/20 11:59 11/11/20 09:34 Naloxone HCl (Narcan) 0.4 mg NEEDED PRN IVP RR less than 6/min 11/06/20 20:00 02/04/21 19:59 Ondansetron HCl (Zofran) 4 mg Q6H PRN IVP Nausea & Vomiting 11/06/20 20:00 12/06/20 19:59 Pantoprazole (Protonix) 40 mg DAILY IVP 11/08/20 09:00 12/08/20 08:59 11/11/20 09:34 Piperacillin Sod/ Tazobactam Sod 3.375 gm/Sodium Chloride 110 ml @ 27.5 mls/hr EVERY 12 HOURS IVPB 11/08/20 13:00 11/13/20 12:59 11/11/20 09:34 Propofol 100 ml @ 2.585 mls/ hr Q12H IV 11/09/20 20:00 11/11/20 19:59 11/11/20 09:36 Remdesivir 100 mg/ Sodium Chloride 250 ml @ 250 mls/hr Q24H IV 11/09/20 14:00 11/12/20 14:59 11/10/20 13:52 Gabby White MD Nov 11, 2020 12:37
--- NOTE | 2020-11-11 14:00 | NUR ---
NURSE NOTES: Patient stable. No s/sx of pain or distress.
[2020-11-11] MEDS: Maintenance Dose:Remdesivir 100mg/NS 230ml x 4 Doses IV SCH ×2 (14:02)
--- NOTE | 2020-11-11 14:59 | NUR ---
RADIOLOGY DEPT. CHEST X-RAY DONE.-P.DYE
--- NOTE | 2020-11-11 16:00 | NUR ---
NURSE NOTES: Patient stable. No s/sx of pain or distress.
--- NOTE | 2020-11-11 16:25 | NUR ---
CASE MANAGEMENT:REVIEW 11/11/20 SI: COVID POSITIVE ~ INTUBATED 98.6 80 19 139/54 95% ON VENT SUPPORT W/60% FIO2 WBC+10.9 NA+150 BUN+99 CR+1.6 IS: IV REMDESIVIR Q24 (4/5) IV ZOSYN Q12 IV SOLUMEDROL Q12 IV PROTONIX QD PROPOFOL GTT IVF@75/HR : ICU STATUS DCP: FROM HOME
--- NOTE | 2020-11-11 17:04 | NUR ---
[employer]URANCE [employer]INCALS AND REVIEW FAXED TO [facility] (11/09-11/11) T: [phone] F: [phone]
--- NOTE | 2020-11-11 17:48 | Surgery Progress Note ---
Surgery Progress Note Subjective Procedure Performed Right femoral central venous catheter insertion Additional Comments leukocytosis ill appearing no n/v Objective Last 24 Hour Vital Signs Date Time Temp Pulse Resp B/P (MAP) Pulse Ox O2 Delivery O2 Flow Rate FiO2 11/11/20 16:00 95 11/11/20 15:15 69 24 80 11/11/20 13:55 80 11/11/20 12:30 74 26 124/51 (75) 98 11/11/20 12:00 Mechanical Ventilator 11/11/20 12:00 60 11/11/20 12:00 75 11/11/20 12:00 77 26 119/50 (73) 97 11/11/20 11:30 78 26 128/52 (77) 97 11/11/20 11:00 78 26 114/48 (70) 97 11/11/20 10:45 85 26 100 11/11/20 10:30 86 26 147/62 (90) 94 11/11/20 10:00 95 23 151/53 (85) 91 11/11/20 09:36 19 144/54 Endotracheal Tube 60 11/11/20 09:30 91 19 144/54 (84) 93 11/11/20 09:00 86 18 143/56 (85) 94 11/11/20 08:30 82 20 140/52 (81) 94 11/11/20 08:00 Mechanical Ventilator 11/11/20 08:00 80 11/11/20 08:00 60 11/11/20 08:00 98.6 81 19 139/54 (82) 95 11/11/20 07:30 77 21 122/53 (76) 94 11/11/20 07:15 82 21 60 11/11/20 07:00 77 24 117/45 (69) 95 11/11/20 06:30 80 20 138/51 (80) 96 11/11/20 06:00 73 23 125/43 (70) 96 11/11/20 06:00 21 138/51 Mechanical Ventilator 100 11/11/20 05:30 75 22 110/48 (68) 97 11/11/20 05:00 74 24 101/43 (62) 96 11/11/20 05:00 24 110/48 Mechanical Ventilator 100 11/11/20 04:30 74 23 102/42 (62) 95 11/11/20 04:00 98.4 82 20 115/42 (66) 95 11/11/20 04:00 23 102/42 Mechanical Ventilator 100 11/11/20 04:00 Mechanical Ventilator 11/11/20 04:00 79 11/11/20 04:00 60 11/11/20 03:19 76 23 60 11/11/20 03:00 22 121/42 Mechanical Ventilator 100 11/11/20 02:45 88 18 138/52 (80) 94 11/11/20 02:30 90 19 144/51 (82) 94 11/11/20 02:15 93 21 136/50 (78) 94 11/11/20 02:00 19 144/51 Mechanical Ventilator 100 11/11/20 02:00 91 16 144/53 (83) 96 11/11/20 01:45 88 17 145/52 (83) 97 11/11/20 01:30 87 17 151/51 (84) 97 11/11/20 01:15 89 16 97 11/11/20 01:00 82 16 136/47 (76) 96 11/11/20 01:00 16 136/47 Mechanical Ventilator 100 11/11/20 00:45 81 20 112/50 (70) 93 11/11/20 00:30 78 27 92/37 (55) 89 11/11/20 00:15 87 16 130/48 (75) 93 11/11/20 00:00 99.0 84 16 138/50 (79) 94 11/11/20 00:00 75 11/11/20 00:00 Mechanical Ventilator 11/11/20 00:00 18 92/37 Mechanical Ventilator 100 11/11/20 00:00 60 11/10/20 23:45 84 19 125/52 (76) 98 11/10/20 23:30 78 19 134/47 (76) 96 11/10/20 23:15 80 16 125/60 (81) 96 11/10/20 23:08 77 20 60 11/10/20 23:00 18 134/47 Mechanical Ventilator 100 11/10/20 23:00 73 19 110/51 (70) 96 11/10/20 22:45 74 17 111/52 (71) 96 11/10/20 22:30 72 19 110/37 (61) 96 11/10/20 22:15 73 18 110/50 (70) 97 11/10/20 22:00 67 20 114/42 (66) 97 11/10/20 22:00 18 110/37 Mechanical Ventilator 100 11/10/20 21:45 68 17 110/50 (70) 97 11/10/20 21:30 63 22 111/46 (67) 97 11/10/20 21:15 59 24 109/55 (73) 97 11/10/20 21:00 61 21 107/43 (64) 98 11/10/20 21:00 21 111/46 Mechanical Ventilator 100 11/10/20 20:46 20 106/42 Mechanical Ventilator 70 11/10/20 20:45 61 20 110/55 (73) 98 11/10/20 20:30 62 22 106/42 (63) 98 11/10/20 20:15 60 24 110/52 (71) 96 11/10/20 20:00 98.0 61 23 101/47 (65) 95 11/10/20 20:00 Mechanical Ventilator 11/10/20 20:00 22 106/42 Mechanical Ventilator 100 11/10/20 19:45 68 19 105/55 (72) 97 11/10/20 19:00 23 100/38 Endotracheal Tube 70 11/10/20 19:00 64 23 100/38 (58) 99 11/10/20 18:44 70 22 70 11/10/20 18:00 75 22 96/48 (64) 96 11/10/20 18:00 21 96/48 Endotracheal Tube 70 I&O Intake and Output 11/10/20 11/11/20 19:00 07:00 Intake Total 781.536 ml 836.881 ml Balance 781.536 ml 836.881 ml Intake Oral 0 ml IV Total 781.536 ml 836.881 ml # Voids 650 680 # Bowel Movements 3 23 Dressing: saturated Cardiovascular: RSR Respiratory: decreased breath sounds Abdomen: non-tender, present bowel sounds Extremities: no tenderness, no cyanosis Laboratory Tests Test 11/10/20 21:36 11/11/20 04:11 11/11/20 07:57 11/11/20 09:43 POC Whole Blood Glucose 241 MG/DL (74-106) H 213 MG/DL (74-106) H White Blood Count 10.9 K/UL (4.8-10.8) H Red Blood Count 3.77 M/UL (4.70-6.10) L Hemoglobin 11.8 G/DL (14.2-18.0) L Hematocrit 35.6 % (42.0-52.0) L Mean Corpuscular Volume 94 FL (80-99) Mean Corpuscular Hemoglobin 31.3 PG (27.0-31.0) H Mean Corpuscular Hemoglobin Concent 33.1 G/DL (32.0-36.0) Red Cell Distribution Width 14.2 % (11.6-14.8) Platelet Count 152 K/UL (150-450) Mean Platelet Volume 7.5 FL (6.5-10.1) Neutrophils (%) (Auto) % (45.0-75.0) Lymphocytes (%) (Auto) % (20.0-45.0) Monocytes (%) (Auto) % (1.0-10.0) Eosinophils (%) (Auto) % (0.0-3.0) Basophils (%) (Auto) % (0.0-2.0) Differential Total Cells Counted 100 Neutrophils % (Manual) 97 % (45-75) H Lymphocytes % (Manual) 2 % (20-45) L Monocytes % (Manual) 1 % (1-10) Eosinophils % (Manual) 0 % (0-3) Basophils % (Manual) 0 % (0-2) Band Neutrophils 0 % (0-8) Nucleated Red Blood Cells 1 /100 WBC Platelet Estimate Adequate Platelet Morphology Normal Hypochromasia 1+ Sodium Level 150 MMOL/L (136-145) H Potassium Level 4.4 MMOL/L (3.5-5.1) Chloride Level 118 MMOL/L (98-107) H Carbon Dioxide Level 27 MMOL/L (21-32) Anion Gap 5 mmol/L (5-15) Blood Urea Nitrogen 99 mg/dL (7-18) H Creatinine 1.6 MG/DL (0.55-1.30) H Estimat Glomerular Filtration Rate 41.4 mL/min (>60) Glucose Level 229 MG/DL (74-106) H Calcium Level 7.1 MG/DL (8.5-10.1) L Phosphorus Level 4.7 MG/DL (2.5-4.9) Magnesium Level 2.7 MG/DL (1.8-2.4) H Total Bilirubin 0.9 MG/DL (0.2-1.0) Direct Bilirubin 0.5 MG/DL (0.0-0.3) H Aspartate Amino Transf (AST/SGOT) 28 U/L (15-37) Alanine Aminotransferase (ALT/SGPT) 24 U/L (12-78) Alkaline Phosphatase 114 U/L (46-116) Total Protein 5.8 G/DL (6.4-8.2) L Albumin 1.4 G/DL (3.4-5.0) L Globulin 4.4 g/dL Albumin/Globulin Ratio 0.3 (1.0-2.7) L Arterial Blood pH 7.319 (7.350-7.450) Arterial Blood Partial Pressure CO2 49.7 mmHg (35.0-45.0) H Arterial Blood Partial Pressure O2 64.5 mmHg (75.0-100.0) L Arterial Blood HCO3 25.0 mmol/L (22.0-26.0) Arterial Blood Oxygen Saturation 90.5 % (95-100) L Arterial Blood Base Excess -1.6 (-2-2) Jonathan Test Positive Plan Problems: (1) ARDS (adult respiratory distress syndrome) Assessment & Plan: 84-year-old male who pressor insufficiency ARDS Covid on vent ET tube in place chest x-ray reviewed central line in place on sedation. Continue daily weaning trials. NG tube okay for diet tube feeds continue. Mio robiology reviewed labs reviewed. Trend labs. IV fluids. Will follow with recommendations thank you for let me participate patient's care DAILY ESTIMATED NEEDS: Needs based on Critcal care 82.4kg abw 22-28 kcals/kg 2603-1372 total kcals 1.2-2 g protein/kg 99-165 g total protein 20-25/ or per MD mL/kg 6891-9345 total fluid mLs NUTRITION DIAGNOSIS: Swallowing difficulty r/t respiratory status as evidenced by 84 y/o M adm w/ covid++, now orally intubated, NPO. ENTERAL NUTRITION RECOMMENDATIONS: VITAL 1.2 GOAL OF 65ml/hr x24 hrs to provide 1560ml, 1872 kcal, 117g pro, 1265ml free H2O - When hemodynamically stable, rec to start non oral feeds to meet est kcal and pro needs. - Start Vital 1.2 @35ml/hr for 6 hrs, advance as tolerated 10ml/hr q4-6 hrs to goal. - Flush per MD. HOB over 30 degrees ADDITIONAL RECOMMENDATIONS: 1) Maintain calibrated bed scale wts 2) Followed by end, monitor for hypoglycemia while NPO 3) Feed when hemodynamically stable, TF recs as above for critical care, carb control, high pro content to meet est needs 4) Re-evaluate TF w/ change in propofol rate-> current rate w/ TF's do NOT exceed est needs. (2) Hypoxemia (3) Renal failure (4) Elevated troponin (5) COVID-19 Tommie Barone Nov 11, 2020 17:48
--- NOTE | 2020-11-11 18:00 | NUR ---
NURSE NOTES: Patient stable. No s/sx of pain or distress.
--- NOTE | 2020-11-11 19:15 | NUR ---
NURSE HAND-OFF REPORT: Latest Vital Signs: Temperature 99.3 , Pulse 100 , B/P 153 /60 , Respiratory Rate 24 , O2 SAT 95 , Endotracheal Tube, O2 Flow Rate . Vital Sign Comment: STABLE EKG Rhythm: Sinus Rhythm Rhythm change?: N MD Notified?: - MD Response: Latest Blackwell Fall Score: 50 Fall Risk: High Risk Safety Measures: Call light Within Reach, Bed Alarm Zone 1, Side Rails Side Rails x3, Bed position Low and Locked. Fall Precautions: Yellow Socks Yellow Gown Door Sign Patient Fall Education Report given to Jaren HOWELL. Plan of care endoresed.
--- NOTE | 2020-11-11 19:30 | NUR ---
NURSE NOTES: Received pt in bed, on vent via ETT, not showing any signs of distress at present settings. Pt sedated with Profopol @ 10mcg/kg/min. OGT in place and is clamped. Bilateral soft wrist restraints in place. D5W infusing @ 75cc/hr via Rt femoral TLC. Douglas cath in place draining yellow urine. Rectal tube in place. Bed in low position, side rails up x2. VSS and pt is SR on the monitor.
--- NOTE | 2020-11-11 20:17 | General Progress Note ---
Subjective Date patient seen: Nov 11, 2020 Allergies: Coded Allergies: No Known Allergies (Unverified , 11/06/20) Subjective Patient titrated down to 75% FiO2. On AC/VC. Vent settings reviewed. Abg reviewed. Blood sugars improved. Later in the day however patient ET tube came out. He briefly desaturated ET tube reinserted. Chest x-ray taken shows proper placement of ET tube. Back on 100% FiO2, titrating down. Starting tube feeds today ROS: unable to obtain due to ALOC Objective Last 24 Hour Vital Signs Date Time Temp Pulse Resp B/P (MAP) Pulse Ox O2 Delivery O2 Flow Rate FiO2 11/11/20 19:00 99.3 100 24 153/60 (91) 95 11/11/20 19:00 24 153/60 Endotracheal Tube 80 11/11/20 18:30 101 24 162/66 (98) 95 11/11/20 18:00 25 161/69 Endotracheal Tube 80 11/11/20 18:00 99 25 156/65 (95) 95 11/11/20 17:30 100 25 158/65 (96) 95 11/11/20 17:00 24 151/62 Endotracheal Tube 80 11/11/20 17:00 95 25 161/69 (99) 95 11/11/20 16:30 99 24 158/64 (95) 95 11/11/20 16:00 97 23 158/51 (86) 96 11/11/20 16:00 95 11/11/20 16:00 80 11/11/20 16:00 23 156/64 Endotracheal Tube 80 11/11/20 16:00 Mechanical Ventilator 11/11/20 16:00 98.9 11/11/20 15:30 95 23 158/64 (95) 97 11/11/20 15:15 69 24 80 11/11/20 15:00 22 158/57 Endotracheal Tube 60 11/11/20 15:00 91 22 156/64 (94) 97 11/11/20 14:30 85 22 158/57 (90) 97 11/11/20 14:00 24 127/60 Endotracheal Tube 60 11/11/20 14:00 80 22 153/56 (88) 98 11/11/20 13:55 80 11/11/20 13:30 73 25 127/60 (82) 99 11/11/20 13:00 25 117/48 Endotracheal Tube 60 11/11/20 13:00 73 26 117/48 (71) 99 11/11/20 12:30 74 26 124/51 (75) 98 11/11/20 12:00 Mechanical Ventilator 11/11/20 12:00 26 128/52 Endotracheal Tube 60 11/11/20 12:00 60 11/11/20 12:00 75 11/11/20 12:00 77 26 119/50 (73) 97 11/11/20 11:30 78 26 128/52 (77) 97 11/11/20 11:00 26 114/48 Endotracheal Tube 60 11/11/20 11:00 78 26 114/48 (70) 97 11/11/20 10:45 85 26 100 11/11/20 10:30 86 26 147/62 (90) 94 11/11/20 10:00 24 151/53 Endotracheal Tube 60 11/11/20 10:00 95 23 151/53 (85) 91 11/11/20 09:36 19 144/54 Endotracheal Tube 60 11/11/20 09:30 91 19 144/54 (84) 93 11/11/20 09:00 86 18 143/56 (85) 94 11/11/20 09:00 20 143/56 Endotracheal Tube 100 11/11/20 08:30 82 20 140/52 (81) 94 11/11/20 08:00 Mechanical Ventilator 11/11/20 08:00 80 11/11/20 08:00 60 11/11/20 08:00 20 139/54 Endotracheal Tube 100 11/11/20 08:00 98.6 81 19 139/54 (82) 95 11/11/20 07:30 77 21 122/53 (76) 94 11/11/20 07:15 82 21 60 11/11/20 07:00 23 123/53 Endotracheal Tube 60 11/11/20 07:00 77 24 117/45 (69) 95 11/11/20 06:30 80 20 138/51 (80) 96 11/11/20 06:00 73 23 125/43 (70) 96 11/11/20 06:00 21 138/51 Mechanical Ventilator 100 11/11/20 05:30 75 22 110/48 (68) 97 11/11/20 05:00 74 24 101/43 (62) 96 11/11/20 05:00 24 110/48 Mechanical Ventilator 100 11/11/20 04:30 74 23 102/42 (62) 95 11/11/20 04:00 98.4 82 20 115/42 (66) 95 11/11/20 04:00 23 102/42 Mechanical Ventilator 100 11/11/20 04:00 Mechanical Ventilator 11/11/20 04:00 79 11/11/20 04:00 60 11/11/20 03:19 76 23 60 11/11/20 03:00 22 121/42 Mechanical Ventilator 100 11/11/20 02:45 88 18 138/52 (80) 94 11/11/20 02:30 90 19 144/51 (82) 94 11/11/20 02:15 93 21 136/50 (78) 94 11/11/20 02:00 19 144/51 Mechanical Ventilator 100 11/11/20 02:00 91 16 144/53 (83) 96 11/11/20 01:45 88 17 145/52 (83) 97 11/11/20 01:30 87 17 151/51 (84) 97 11/11/20 01:15 89 16 97 11/11/20 01:00 82 16 136/47 (76) 96 11/11/20 01:00 16 136/47 Mechanical Ventilator 100 11/11/20 00:45 81 20 112/50 (70) 93 11/11/20 00:30 78 27 92/37 (55) 89 11/11/20 00:15 87 16 130/48 (75) 93 11/11/20 00:00 99.0 84 16 138/50 (79) 94 11/11/20 00:00 75 11/11/20 00:00 Mechanical Ventilator 11/11/20 00:00 18 92/37 Mechanical Ventilator 100 11/11/20 00:00 60 11/10/20 23:45 84 19 125/52 (76) 98 11/10/20 23:30 78 19 134/47 (76) 96 11/10/20 23:15 80 16 125/60 (81) 96 11/10/20 23:08 77 20 60 11/10/20 23:00 18 134/47 Mechanical Ventilator 100 11/10/20 23:00 73 19 110/51 (70) 96 11/10/20 22:45 74 17 111/52 (71) 96 11/10/20 22:30 72 19 110/37 (61) 96 11/10/20 22:15 73 18 110/50 (70) 97 11/10/20 22:00 67 20 114/42 (66) 97 11/10/20 22:00 18 110/37 Mechanical Ventilator 100 11/10/20 21:45 68 17 110/50 (70) 97 11/10/20 21:30 63 22 111/46 (67) 97 11/10/20 21:15 59 24 109/55 (73) 97 11/10/20 21:00 61 21 107/43 (64) 98 11/10/20 21:00 21 111/46 Mechanical Ventilator 100 11/10/20 20:46 20 106/42 Mechanical Ventilator 70 11/10/20 20:45 61 20 110/55 (73) 98 11/10/20 20:30 62 22 106/42 (63) 98 11/10/20 20:15 60 24 110/52 (71) 96 Intake and Output 11/10/20 11/11/20 19:00 07:00 Intake Total 781.536 ml 842.052 ml Balance 781.536 ml 842.052 ml Intake Oral 0 ml IV Total 781.536 ml 842.052 ml # Voids 650 680 # Bowel Movements 3 23 Laboratory Tests 11/10/20 21:36: POC Whole Blood Glucose 241H 11/11/20 04:11: White Blood Count 10.9H, Red Blood Count 3.77L, Hemoglobin 11.8L, Hematocrit 35.6L, Mean Corpuscular Volume 94, Mean Corpuscular Hemoglobin 31.3H, Mean Corpuscular Hemoglobin Concent 33.1, Red Cell Distribution Width 14.2, Platelet Count 152, Mean Platelet Volume 7.5, Neutrophils (%) (Auto) , Lymphocytes (%) (Auto) , Monocytes (%) (Auto) , Eosinophils (%) (Auto) , Basophils (%) (Auto) , Differential Total Cells Counted 100, Neutrophils % (Manual) 97H, Lymphocytes % (Manual) 2L, Monocytes % (Manual) 1, Eosinophils % (Manual) 0, Basophils % (Manual) 0, Band Neutrophils 0, Nucleated Red Blood Cells 1, Platelet Estimate Adequate, Platelet Morphology Normal, Hypochromasia 1+, Sodium Level 150H, Potassium Level 4.4, Chloride Level 118H, Carbon Dioxide Level 27, Anion Gap 5, Blood Urea Nitrogen 99H, Creatinine 1.6H, Estimat Glomerular Filtration Rate 41.4, Glucose Level 229H, Calcium Level 7.1L, Phosphorus Level 4.7, Magnesium Level 2.7H, Total Bilirubin 0.9, Direct Bilirubin 0.5H, Aspartate Amino Transf (AST/SGOT) 28, Alanine Aminotransferase (ALT/SGPT) 24, Alkaline Phosphatase 114, Total Protein 5.8L, Albumin 1.4L, Globulin 4.4, Albumin/Globulin Ratio 0.3L 11/11/20 07:57: Arterial Blood pH 7.319L, Arterial Blood Partial Pressure CO2 49.7H, Arterial Blood Partial Pressure O2 64.5L, Arterial Blood HCO3 25.0, Arterial Blood Oxygen Saturation 90.5L, Arterial Blood Base Excess -1.6, Jonathan Test Positive 11/11/20 09:43: POC Whole Blood Glucose 213H Height (Feet): 6 Height (Inches): 1.00 Weight (Pounds): 190 Objective Exam limited due to COVID status and to conserve PPE. Per discussion with RN. General: Male A&o x 0 On intubated, sedated, moving all extremities spontaneously off sedation HEENT: Normocephalic cephalic atraumatic, pupils equal round reactive to light and accommodation, nares patent and no symmetrical, no tonsillar exudates, mucous membranes moist CV: Regular rate regular rhythm, no murmurs, rubs, or gallops Pulm: Lungs coarse breath sounds bilaterally. No wheezes, rhonchi, or rales GI: Soft, nontender, nondistended, bowel sounds present Neuro: Moving all extremities Ext: No lower extremity edema bilaterally Skin: no rashes lesions or ulcers Msk: Joints symmetrical in upper extremity and lower extremity bilaterally, no joint swelling. Lymph: No lymphadenopathy in upper extremity and lower extremity Assessment/Plan Status: stable Assessment/Plan: 84 yo M w DM2, HTN, ? CKD admitted for Covid19 PNA with SAMEER # acute hypoxemia Resp failure 2/2 covid PNA > s/p intubation on 11/07/20. EtTube out on 11/11 but re-inserted # Covid PNA # Lactic acid elevation # elevated D dimer # Trop elevated - Patient full code. See Advanced care plan note. Discussed with family and son as spokesperson who confirmed code status to be full code. Will continue disc ussions as patient progresses - s/p IVF bolus in ED, will keep lung dry as much as possible - s/p decadron 6mg iv daily - solumedrol Q12hr (11/08 - ) - Remdesivir per ID (11/09 - ) - azithromycin (11/08 - ) - Vancomycin (11/09 - ) - Zosyn (11/09 - ) - Abx per ID - pulm consult: Chasity - ID consult: Steven - Aneesh consult - trend ABG: reviewed - Continue Ac/VC - propofol for sedation - monitor triglycerides - Wean vent as tolerated - s/p NG tube 11/07 for meds. Consider tube feeding? D/w Pulm - IV fluids per nephro #S. hominis bacteremia, Contaminant? Defer to ID #Bilateral superimposed pneumonia - ID consulted: Dr. Harris - Follow surveilance cultures - Vanc per pharm (11/08 - ) - Zosyn (11/08 - ) # Malnutrition #HTN, current normotensive - Tube feedings - Appreciate surgery recs - D/w RN # DM2 uncontrolled #hyperglycemia - detemir 10 units BID - continue SSI - accuchecks - hypoglycemia protocol # SAMEER vs. SAMEER on CKD, likely prerenal vs. # Dehydration - renal consult - Gentle IV fluids - i/o monitor, montilla cath FENPPX DVTPPX: lovenox GI PPX: protonix Fluids: per nephro Diet: NPO, tube feedings PT/OT: deferred Code status: Full code Dispo: SNF eventually. Guarded prognosis. Family aware Reason for Continued Hospitalization: Hypoxia Time of my involvement, the patient's condition was critical with high potential for and/or physiologic deterioration secondary to acute hypoxic respiratory failure as delineated in the note above. On the above date of service, I spent a total of 36 minutes in the ICU evaluating, managing, and providing critical care services to this patient, including time spent documenting these activities, counseling patient/family, and coordinating care. Critical care services performed include: -Telemetry review -Hemodynamic measurement interpretation -Laboratory data review and interpretation -Vent setting reviewed, management -Discussion of care plans with patient, family, and/or surrogate decision makers -Discussion of patient's care with primary medical team, surgical team, and/or consulting service -Decision to obtain further radiologic evaluation, after consideration of the risk/benefit ratio -Review of most recent microbiology results assessment and modification of antimicrobial coverage -Discussion of patient's CODE STATUS and further advancement towards the ultimate goals of care. Plan outlined above discussed with patient/family, DIAMOND DIE MAKER, ICU team, and involved physician/consultants. Time of note not necessarily time patient was seen Bakari Lucio D.O. Nov 11, 2020 20:17
[2020-11-11] MEDS: Dyna-Hex 2% Top Sol 2oz TOPIC SCH (21:09)
[2020-11-11] MEDS: Enoxaparin 40mg Inj SUBQ SCH (21:13)
[2020-11-12] VITALS (25 sets, daily range): BP systolic 97–149; BP diastolic 36–66
--- NOTE | 2020-11-12 | NUR ---
NURSE NOTES: Pt remains stable witrh stable VS. FiO2 decreased to 70% which pt is tolerating well. Will continue to monitor pt.
--- NOTE | 2020-11-12 04:00 | NUR ---
NURSE NOTES: Pt stable with stable VS. AM care given and cooling measures done. Pt remains SR on the monitor.
[2020-11-12 05:08] LABS: HEMATOCRIT 34.6 % (42.0-52.0); HEMOGLOBIN 11.8 G/DL (14.2-18.0); MEAN CORPUSCULAR VOLUME 91 FL (80-99); PLATELET COUNT 139 K/UL (150-450); RED BLOOD COUNT 3.79 M/UL (4.70-6.10); RED CELL DISTRIBUTION WIDTH 14.6 % (11.6-14.8); WHITE BLOOD COUNT 10.7 K/UL (4.8-10.8)
[2020-11-12] MEDS: NovoLOG Insulin Flexpen SUBQ SCH ×4 (05:36→23:44)
[2020-11-12] MEDS: propofoL 1,000mg/100ml 100 ML IV SCH ×2 (06:00→18:00)
[2020-11-12 06:06] LABS: ALBUMIN 1.3 G/DL (3.4-5.0); ALBUMIN/GLOBULIN RATIO 0.3 (1.0-2.7); BILIRUBIN,DIRECT 0.4 MG/DL (0.0-0.3); BILIRUBIN,TOTAL 0.9 MG/DL (0.2-1.0); CALCIUM 7.2 MG/DL (8.5-10.1); CREATININE 1.6 MG/DL (0.55-1.30); POTASSIUM 4.2 MMOL/L (3.5-5.1)
--- NOTE | 2020-11-12 07:07 | NUR ---
RESPIRATORY NOTE: PT RECEIVED ON AC 16, 500, +5, 70% FIO2. PT IS INTUBATED WITH 7.5 ETT SECURED WITH AN ANCHOR FAST 25CM AT THE LIPLINE. PT IS SLEEPING/SEDATED. SXN SMALL AMOUNTS OF THIN SWAIN/ YELLOW SECRETIONS. B/S ARE DIMINISHED THROUGHOUT WIT EQUAL CHEST RISE. VENT IS PLUGGED INTO RED OUTLET. AMBU BAG AT BEDSIDE. ALARMS ARE ON AND AUDIBLE. NO DISTRESS NOTED AT THIS TIME. WILL CONTINUE TO MONITOR AND FOLLOW PLAN OF CARE.
--- NOTE | 2020-11-12 07:23 | NUR ---
NURSE HAND-OFF REPORT: Latest Vital Signs: Temperature 100.0 , Pulse 98 , B/P 137 /46 , Respiratory Rate 27 , O2 SAT 88 , Mechanical Ventilator, O2 Flow Rate . Vital Sign Comment: stable EKG Rhythm: Sinus Rhythm Rhythm change?: N MD Notified?: - MD Response: Latest Blackwell Fall Score: 50 Fall Risk: High Risk Safety Measures: Call light Within Reach, Bed Alarm Zone 1, Side Rails Side Rails x3, Bed position Low and Locked. Fall Precautions: Yellow Socks Yellow Gown Door Sign Patient Fall Education Report given to LYNDA Hutchinson.
--- NOTE | 2020-11-12 07:24 | NUR ---
NURSE NOTES: Pt received from LYNDA De La Rosa. Pt is sedated, RASS -2, opens eyes when called by name and maintains eye contact for aprox 6 sec, unable to follow simple commands at this time, withdraw to pain, bilat pupils equal and round 3mm with brisk rxn to light, gag reflex intact. Pt is SR to dining room coordinator with 2+ radial and dorsalis pedis pulses. Nonpitting edema noted to hands. Axillary Temp 100.1 - will apply ice packs. cap refill less than 2 sec. Pt is orally intubated with a 7.5 ETT noted 25 cm at the lip with the following: AC 16 TV 500 FiO2 70 % Peep 5 (spO2 currently in the 80s despite suctioning - FiO2 titrated up to 100% at this time per RT) - all lung rueda noted diminished upon auscultation (will request order for ABGs). OGT noted clamped (pt is NPO - will request tube feeding order). Abdomen is round and soft w/ active bowel sounds to all quadrants. F/C noted draining yellow, clear urine. Skin is intact. Pt has a R Fem TLC with dry and intact dressing running propofol at 10 mcg/kg/min and D5W at 75 cc/hr. BAR WAITER/WAITRESS restraints on for pt safety - extremities observed moving towards medical devices when restraints are removed and reapplied. Radial pulses palpable, skin to both wrists intact. Bed in lowest position, alarm on, side rails up x 3, call light within reach. Will continue to monitor.
[2020-11-12] MEDS: Solu-MEDROL 40mg Inj IVP SCH ×2 (08:13→20:58)
[2020-11-12] MEDS: Pantoprazole Inj IVP SCH (08:13)
[2020-11-12] MEDS: Piperacillin/Tazobactam 3.375 GM in NS 110 ML IVPB SCH ×2 (08:13→21:00)
[2020-11-12] MEDS: Levemir Flexpen SUBQ SCH ×2 (08:16→21:00)
--- NOTE | 2020-11-12 08:19 | NUR ---
RD ASSESSMENT & RECOMMENDATIONS SEE CARE ACTIVITY FOR COMPLETE ASSESSMENT DAILY ESTIMATED NEEDS: Needs based on Critcal care 82.4kg abw 22-28 kcals/kg 2050-4103 total kcals 1.2-2 g protein/kg 99-165 g total protein 20-25/ or per MD mL/kg 0317-5204 total fluid mLs NUTRITION DIAGNOSIS: Swallowing difficulty r/t respiratory status as evidenced by 84 y/o M adm w/ covid + PNA, now orally intubated and sedated, w/ OGT in place NPO. CURRENT TF: NPO ENTERAL NUTRITION RECOMMENDATIONS: VITAL 1.2 GOAL OF 65ml/hr x24 hrs to provide 1560ml, 1872 kcal, 117g pro, 1265ml free H2O - Initiate TF: NPO day 6 today, rec critical care and carb controlled formula of Vital AF 1.2 - Start Vital 1.2 @25ml/hr for 6 hrs, advance as tolerated 10ml/hr q4-6 hrs to goal. - Flush per MD. HOB over 30 degrees ADDITIONAL RECOMMENDATIONS: 1) Maintain calibrated bed scale wts 2) Monitor BGs, rec long acting insulin and DC D5 IVF w/ TF Monitor for hypoglycemia while NPO 3) NPO DAY 6 TODAY- TF recs as above for critical care, carb control, high pro content to meet est needs 4) Re-evaluate TF w/ change in propofol rate-> current rate w/ TF's do NOT exceed est needs.
--- NOTE | 2020-11-12 09:02 | Infectious Diseases Prog Note ---
Assessment/Plan Assessment/Plan A: 1. COVID-19 pneumonia. 2. Positive blood culture likely contamination 3. Respiratory failure with hypoxia 4. Diabetes. 5. Hypertension. 6. Renal failure. 7. Acidosis PLAN: 1. Continue remdesivir 2. continue Solu-Medrol. 3. Continue Zosyn. 4. Continue isolation. Subjective ROS Limited/Unobtainable: Yes Constitutional: Reports: fever, other - Td=740.5 Neurologic: Reports: confusion, other - on restraint Allergies: Coded Allergies: No Known Allergies (Unverified , 11/06/20) Objective Last 24 Hour Vital Signs Date Time Temp Pulse Resp B/P (MAP) Pulse Ox O2 Delivery O2 Flow Rate FiO2 11/12/20 08:00 100 11/12/20 07:00 98 27 137/46 (76) 88 11/12/20 07:00 27 137/46 Mechanical Ventilator 70 11/12/20 06:00 83 28 128/55 (79) 93 11/12/20 06:00 27 124/44 70 11/12/20 05:00 75 27 124/44 (70) 95 11/12/20 05:00 27 124/44 Mechanical Ventilator 70 11/12/20 04:00 100.0 70 25 97/42 (60) 94 11/12/20 04:00 Mechanical Ventilator 11/12/20 04:00 70 11/12/20 04:00 25 97/42 Mechanical Ventilator 70 11/12/20 04:00 70 11/12/20 03:29 70 25 97 Bi-Pap 70 11/12/20 03:28 70 26 70 11/12/20 03:00 71 27 103/44 (63) 95 11/12/20 03:00 27 103/44 Mechanical Ventilator 70 11/12/20 02:00 74 27 101/42 (61) 94 11/12/20 02:00 27 101/42 Mechanical Ventilator 70 11/12/20 01:00 83 30 114/47 (69) 92 11/12/20 01:00 30 114/47 Mechanical Ventilator 70 11/12/20 00:00 100.5 96 27 149/54 (85) 93 11/12/20 00:00 100 11/12/20 00:00 70 11/12/20 00:00 27 149/54 Mechanical Ventilator 70 11/12/20 00:00 Mechanical Ventilator 11/11/20 23:14 87 26 70 11/11/20 23:00 87 25 138/52 (80) 96 11/11/20 23:00 25 138/52 Mechanical Ventilator 80 11/11/20 22:00 27 149/54 Mechanical Ventilator 80 11/11/20 22:00 81 28 121/48 (72) 96 11/11/20 21:00 27 124/57 Mechanical Ventilator 80 11/11/20 21:00 87 27 124/57 (79) 94 11/11/20 20:00 99.5 95 26 135/56 (82) 95 11/11/20 20:00 80 11/11/20 20:00 26 135/56 Mechanical Ventilator 80 11/11/20 20:00 Mechanical Ventilator 11/11/20 20:00 95 11/11/20 19:30 94 27 80 11/11/20 19:00 99.3 100 24 153/60 (91) 95 11/11/20 19:00 24 153/60 Endotracheal Tube 80 11/11/20 18:30 101 24 162/66 (98) 95 11/11/20 18:00 25 161/69 Endotracheal Tube 80 11/11/20 18:00 99 25 156/65 (95) 95 11/11/20 17:30 100 25 158/65 (96) 95 11/11/20 17:00 24 151/62 Endotracheal Tube 80 11/11/20 17:00 95 25 161/69 (99) 95 11/11/20 16:30 99 24 158/64 (95) 95 11/11/20 16:00 97 23 158/51 (86) 96 11/11/20 16:00 95 11/11/20 16:00 80 11/11/20 16:00 23 156/64 Endotracheal Tube 80 11/11/20 16:00 Mechanical Ventilator 11/11/20 16:00 98.9 11/11/20 15:30 95 23 158/64 (95) 97 11/11/20 15:15 69 24 80 11/11/20 15:00 22 158/57 Endotracheal Tube 60 11/11/20 15:00 91 22 156/64 (94) 97 11/11/20 14:30 85 22 158/57 (90) 97 11/11/20 14:00 24 127/60 Endotracheal Tube 60 11/11/20 14:00 80 22 153/56 (88) 98 11/11/20 13:55 80 11/11/20 13:30 73 25 127/60 (82) 99 11/11/20 13:00 25 117/48 Endotracheal Tube 60 11/11/20 13:00 73 26 117/48 (71) 99 11/11/20 12:30 74 26 124/51 (75) 98 11/11/20 12:00 Mechanical Ventilator 11/11/20 12:00 26 128/52 Endotracheal Tube 60 11/11/20 12:00 60 11/11/20 12:00 75 11/11/20 12:00 77 26 119/50 (73) 97 11/11/20 11:30 78 26 128/52 (77) 97 11/11/20 11:00 26 114/48 Endotracheal Tube 60 11/11/20 11:00 78 26 114/48 (70) 97 11/11/20 10:45 85 26 100 11/11/20 10:30 86 26 147/62 (90) 94 11/11/20 10:00 24 151/53 Endotracheal Tube 60 11/11/20 10:00 95 23 151/53 (85) 91 11/11/20 09:36 19 144/54 Endotracheal Tube 60 11/11/20 09:30 91 19 144/54 (84) 93 11/11/20 09:00 86 18 143/56 (85) 94 11/11/20 09:00 20 143/56 Endotracheal Tube 100 Height (Feet): 6 Height (Inches): 1.00 Weight (Pounds): 190 HEENT: other - orally intubated Respiratory/Chest: other - on ventilator, EIS3=385% Cardiovascular: normal rate Abdomen: soft, non tender Extremities: no edema Neurologic/Psychiatric: other - sedated Laboratory Tests Test 11/11/20 09:43 11/12/20 03:55 POC Whole Blood Glucose 213 MG/DL (74-106) H White Blood Count 10.7 K/UL (4.8-10.8) Red Blood Count 3.79 M/UL (4.70-6.10) L Hemoglobin 11.8 G/DL (14.2-18.0) L Hematocrit 34.6 % (42.0-52.0) L Mean Corpuscular Volume 91 FL (80-99) Mean Corpuscular Hemoglobin 31.3 PG (27.0-31.0) H Mean Corpuscular Hemoglobin Concent 34.2 G/DL (32.0-36.0) Red Cell Distribution Width 14.6 % (11.6-14.8) Platelet Count 139 K/UL (150-450) L Mean Platelet Volume 7.5 FL (6.5-10.1) Neutrophils (%) (Auto) % (45.0-75.0) Lymphocytes (%) (Auto) % (20.0-45.0) Monocytes (%) (Auto) % (1.0-10.0) Eosinophils (%) (Auto) % (0.0-3.0) Basophils (%) (Auto) % (0.0-2.0) Sodium Level 151 MMOL/L (136-145) H Potassium Level 4.2 MMOL/L (3.5-5.1) Chloride Level 119 MMOL/L (98-107) H Carbon Dioxide Level 26 MMOL/L (21-32) Anion Gap 6 mmol/L (5-15) Blood Urea Nitrogen 87 mg/dL (7-18) H Creatinine 1.6 MG/DL (0.55-1.30) H Estimat Glomerular Filtration Rate 41.4 mL/min (>60) Glucose Level 271 MG/DL (74-106) H Calcium Level 7.2 MG/DL (8.5-10.1) L Total Bilirubin 0.9 MG/DL (0.2-1.0) Direct Bilirubin 0.4 MG/DL (0.0-0.3) H Aspartate Amino Transf (AST/SGOT) 23 U/L (15-37) Alanine Aminotransferase (ALT/SGPT) 21 U/L (12-78) Alkaline Phosphatase 106 U/L (46-116) Total Protein 5.5 G/DL (6.4-8.2) L Albumin 1.3 G/DL (3.4-5.0) L Globulin 4.2 g/dL Albumin/Globulin Ratio 0.3 (1.0-2.7) L Triglycerides Level 79 MG/DL (30-150) Current Medications Medications (Trade) Dose Ordered Sig/Violet Route PRN Reason Start Time Stop Time Status Last Admin Dose Admin Chlorhexidine Gluconate (Patt-Hex 2%) 1 applic DAILY@1999 TOPIC 11/09/20 20:00 02/07/21 19:59 11/11/20 21:09 Dextrose 500 ml @ 75 mls/hr EVERY 6 HOURS IV 11/11/20 13:00 12/11/20 12:59 11/12/20 05:59 Dextrose (Dextrose 50%) 25 ml Q30M PRN IV Hypoglycemia 11/06/20 20:00 02/04/21 19:59 Dextrose (Dextrose 50%) 50 ml Q30M PRN IV Hypoglycemia 11/06/20 20:00 02/04/21 19:59 Dopamine HCl/ Dextrose 250 ml @ 0 mls/hr Q24H PRN IV For hypotension 11/09/20 13:00 11/12/20 13:00 Enoxaparin Sodium (Lovenox) 40 mg Q24H SUBQ 11/07/20 21:00 02/05/21 20:59 11/11/20 21:13 Flumazenil (Romazicon) 0.2 mg NEEDED PRN IV Sedation reversal 11/06/20 20:00 Insulin Aspart (NovoLOG) EVERY 6 HOURS SUBQ 11/08/20 12:00 02/05/21 16:29 11/12/20 05:36 Insulin Detemir (Levemir) 10 units EVERY 12 HOURS SUBQ 11/09/20 11:15 02/05/21 20:59 11/12/20 08:16 Methylprednisolone Sodium Succinate (Solu-MEDROL) 40 mg Q12HR IVP 11/08/20 12:00 11/15/20 11:59 11/12/20 08:13 Naloxone HCl (Narcan) 0.4 mg NEEDED PRN IVP RR less than 6/min 11/06/20 20:00 02/04/21 19:59 Ondansetron HCl (Zofran) 4 mg Q6H PRN IVP Nausea & Vomiting 11/06/20 20:00 12/06/20 19:59 Pantoprazole (Protonix) 40 mg DAILY IVP 11/08/20 09:00 12/08/20 08:59 11/12/20 08:13 Piperacillin Sod/ Tazobactam Sod 3.375 gm/Sodium Chloride 110 ml @ 27.5 mls/hr EVERY 12 HOURS IVPB 11/08/20 13:00 11/13/20 12:59 11/12/20 08:13 Propofol 100 ml @ 0 mls/hr Q12H IV 11/11/20 20:11 11/13/20 20:10 11/12/20 06:00 Remdesivir 100 mg/ Sodium Chloride 250 ml @ 250 mls/hr Q24H IV 11/09/20 14:00 11/12/20 14:59 11/11/20 14:02 Karson Cabrera MD Nov 12, 2020 09:02
--- NOTE | 2020-11-12 09:06 | Nephrology Progress Note ---
Assessment/Plan Plan #SAMEER on CKD- likely pre-renal azotemia in the setting of sepsis #hypnatremia # acute hypoxemia Resp failure 2/2 covid PNA requiring BIPAP # Covid PNA # Lactic acid elevation # Malnutrition #HTN, current normotensive # elevated D dimer # Trop elevated # DM2 uncontrolled - D5W x1L now - continue with D5w infusion - intubated - monitor volume status - monitor ABG - monitor BMP, mag and phos daily - strict I&Os - daily weights - echo - defer renal US - antibiotic per ID time spent 65min Subjective ROS Limited/Unobtainable: Yes Subjective intubated Cr 1.6 sodium remains elevated Objective Objective Last 24 Hour Vital Signs Date Time Temp Pulse Resp B/P (MAP) Pulse Ox O2 Delivery O2 Flow Rate FiO2 11/12/20 08:00 100 11/12/20 07:00 98 27 137/46 (76) 88 11/12/20 07:00 27 137/46 Mechanical Ventilator 70 11/12/20 06:00 83 28 128/55 (79) 93 11/12/20 06:00 27 124/44 70 11/12/20 05:00 75 27 124/44 (70) 95 11/12/20 05:00 27 124/44 Mechanical Ventilator 70 11/12/20 04:00 100.0 70 25 97/42 (60) 94 11/12/20 04:00 Mechanical Ventilator 11/12/20 04:00 70 11/12/20 04:00 25 97/42 Mechanical Ventilator 70 11/12/20 04:00 70 11/12/20 03:29 70 25 97 Bi-Pap 70 11/12/20 03:28 70 26 70 11/12/20 03:00 71 27 103/44 (63) 95 11/12/20 03:00 27 103/44 Mechanical Ventilator 70 11/12/20 02:00 74 27 101/42 (61) 94 11/12/20 02:00 27 101/42 Mechanical Ventilator 70 11/12/20 01:00 83 30 114/47 (69) 92 11/12/20 01:00 30 114/47 Mechanical Ventilator 70 11/12/20 00:00 100.5 96 27 149/54 (85) 93 11/12/20 00:00 100 11/12/20 00:00 70 11/12/20 00:00 27 149/54 Mechanical Ventilator 70 11/12/20 00:00 Mechanical Ventilator 11/11/20 23:14 87 26 70 11/11/20 23:00 87 25 138/52 (80) 96 11/11/20 23:00 25 138/52 Mechanical Ventilator 80 11/11/20 22:00 27 149/54 Mechanical Ventilator 80 11/11/20 22:00 81 28 121/48 (72) 96 11/11/20 21:00 27 124/57 Mechanical Ventilator 80 11/11/20 21:00 87 27 124/57 (79) 94 11/11/20 20:00 99.5 95 26 135/56 (82) 95 11/11/20 20:00 80 11/11/20 20:00 26 135/56 Mechanical Ventilator 80 11/11/20 20:00 Mechanical Ventilator 11/11/20 20:00 95 11/11/20 19:30 94 27 80 11/11/20 19:00 99.3 100 24 153/60 (91) 95 11/11/20 19:00 24 153/60 Endotracheal Tube 80 11/11/20 18:30 101 24 162/66 (98) 95 11/11/20 18:00 25 161/69 Endotracheal Tube 80 11/11/20 18:00 99 25 156/65 (95) 95 11/11/20 17:30 100 25 158/65 (96) 95 11/11/20 17:00 24 151/62 Endotracheal Tube 80 11/11/20 17:00 95 25 161/69 (99) 95 11/11/20 16:30 99 24 158/64 (95) 95 11/11/20 16:00 97 23 158/51 (86) 96 11/11/20 16:00 95 11/11/20 16:00 80 11/11/20 16:00 23 156/64 Endotracheal Tube 80 11/11/20 16:00 Mechanical Ventilator 11/11/20 16:00 98.9 11/11/20 15:30 95 23 158/64 (95) 97 11/11/20 15:15 69 24 80 11/11/20 15:00 22 158/57 Endotracheal Tube 60 11/11/20 15:00 91 22 156/64 (94) 97 11/11/20 14:30 85 22 158/57 (90) 97 11/11/20 14:00 24 127/60 Endotracheal Tube 60 11/11/20 14:00 80 22 153/56 (88) 98 11/11/20 13:55 80 11/11/20 13:30 73 25 127/60 (82) 99 11/11/20 13:00 25 117/48 Endotracheal Tube 60 11/11/20 13:00 73 26 117/48 (71) 99 11/11/20 12:30 74 26 124/51 (75) 98 11/11/20 12:00 Mechanical Ventilator 11/11/20 12:00 26 128/52 Endotracheal Tube 60 11/11/20 12:00 60 11/11/20 12:00 75 11/11/20 12:00 77 26 119/50 (73) 97 11/11/20 11:30 78 26 128/52 (77) 97 11/11/20 11:00 26 114/48 Endotracheal Tube 60 11/11/20 11:00 78 26 114/48 (70) 97 11/11/20 10:45 85 26 100 11/11/20 10:30 86 26 147/62 (90) 94 11/11/20 10:00 24 151/53 Endotracheal Tube 60 11/11/20 10:00 95 23 151/53 (85) 91 11/11/20 09:36 19 144/54 Endotracheal Tube 60 11/11/20 09:30 91 19 144/54 (84) 93 Intake and Output 11/11/20 11/12/20 19:00 07:00 Intake Total 686.9594 ml 881.1 ml Output Total 0 ml Balance 686.9594 ml 881.1 ml Intake Oral 0 ml 0 ml IV Total 686.9594 ml 881.1 ml Output Stool Total 0 ml # Voids 600 504 # Bowel Movements 3 3 Laboratory Tests 11/11/20 09:43: POC Whole Blood Glucose 213H 11/12/20 03:55: White Blood Count 10.7, Red Blood Count 3.79L, Hemoglobin 11.8L, Hematocrit 34.6L, Mean Corpuscular Volume 91, Mean Corpuscular Hemoglobin 31.3H, Mean Corpuscular Hemoglobin Concent 34.2, Red Cell Distribution Width 14.6, Platelet Count 139L, Mean Platelet Volume 7.5, Neutrophils (%) (Auto) , Lymphocytes (%) (Auto) , Monocytes (%) (Auto) , Eosinophils (%) (Auto) , Basophils (%) (Auto) , Sodium Level 151H, Potassium Level 4.2, Chloride Level 119H, Carbon Dioxide Level 26, Anion Gap 6, Blood Urea Nitrogen 87H, Creatinine 1.6H, Estimat Glomerular Filtration Rate 41.4, Glucose Level 271H, Calcium Level 7.2L, Total B ilirubin 0.9, Direct Bilirubin 0.4H, Aspartate Amino Transf (AST/SGOT) 23, Alanine Aminotransferase (ALT/SGPT) 21, Alkaline Phosphatase 106, Total Protein 5.5L, Albumin 1.3L, Globulin 4.2, Albumin/Globulin Ratio 0.3L, Triglycerides Level 79 Height (Feet): 6 Height (Inches): 1.00 Weight (Pounds): 190 Kulwant Hong M.D. Nov 12, 2020 09:06
--- NOTE | 2020-11-12 10:10 | NUR ---
NURSE NOTES: Pt seen by Dr Grant. Discussed pt's condition and need to titrate up FiO2 to 100% this morning d/t spO2 in the 80s. Received order for ABG - will f/u w/ results. Also received order to initiate diet per RD recommendation.
[2020-11-12] MEDS ORDERED: Acetaminophen 650mg/20.3ml NG PRN (10:45)
--- NOTE | 2020-11-12 10:45 | General Progress Note ---
Subjective Date patient seen: Nov 12, 2020 ROS Limited/Unobtainable: Yes Allergies: Coded Allergies: No Known Allergies (Unverified , 11/06/20) Subjective Patient titrated up to 100% FiO2. On AC/VC. Vent settings reviewed. Abg ordered. Will start tube feeds today. TG level ok on propofol. ROS: unable to obtain due to ALOC Objective Last 24 Hour Vital Signs Date Time Temp Pulse Resp B/P (MAP) Pulse Ox O2 Delivery O2 Flow Rate FiO2 11/12/20 08:00 100 11/12/20 07:00 98 27 137/46 (76) 88 11/12/20 07:00 27 137/46 Mechanical Ventilator 70 11/12/20 06:00 83 28 128/55 (79) 93 11/12/20 06:00 27 124/44 70 11/12/20 05:00 75 27 124/44 (70) 95 11/12/20 05:00 27 124/44 Mechanical Ventilator 70 11/12/20 04:00 100.0 70 25 97/42 (60) 94 11/12/20 04:00 Mechanical Ventilator 11/12/20 04:00 70 11/12/20 04:00 25 97/42 Mechanical Ventilator 70 11/12/20 04:00 70 11/12/20 03:29 70 25 97 Bi-Pap 70 11/12/20 03:28 70 26 70 11/12/20 03:00 71 27 103/44 (63) 95 11/12/20 03:00 27 103/44 Mechanical Ventilator 70 11/12/20 02:00 74 27 101/42 (61) 94 11/12/20 02:00 27 101/42 Mechanical Ventilator 70 11/12/20 01:00 83 30 114/47 (69) 92 11/12/20 01:00 30 114/47 Mechanical Ventilator 70 11/12/20 00:00 100.5 96 27 149/54 (85) 93 11/12/20 00:00 100 11/12/20 00:00 70 11/12/20 00:00 27 149/54 Mechanical Ventilator 70 11/12/20 00:00 Mechanical Ventilator 11/11/20 23:14 87 26 70 11/11/20 23:00 87 25 138/52 (80) 96 11/11/20 23:00 25 138/52 Mechanical Ventilator 80 11/11/20 22:00 27 149/54 Mechanical Ventilator 80 11/11/20 22:00 81 28 121/48 (72) 96 11/11/20 21:00 27 124/57 Mechanical Ventilator 80 11/11/20 21:00 87 27 124/57 (79) 94 11/11/20 20:00 99.5 95 26 135/56 (82) 95 11/11/20 20:00 80 11/11/20 20:00 26 135/56 Mechanical Ventilator 80 11/11/20 20:00 Mechanical Ventilator 11/11/20 20:00 95 11/11/20 19:30 94 27 80 11/11/20 19:00 99.3 100 24 153/60 (91) 95 11/11/20 19:00 24 153/60 Endotracheal Tube 80 11/11/20 18:30 101 24 162/66 (98) 95 11/11/20 18:00 25 161/69 Endotracheal Tube 80 11/11/20 18:00 99 25 156/65 (95) 95 11/11/20 17:30 100 25 158/65 (96) 95 11/11/20 17:00 24 151/62 Endotracheal Tube 80 11/11/20 17:00 95 25 161/69 (99) 95 11/11/20 16:30 99 24 158/64 (95) 95 11/11/20 16:00 97 23 158/51 (86) 96 11/11/20 16:00 95 11/11/20 16:00 80 11/11/20 16:00 23 156/64 Endotracheal Tube 80 11/11/20 16:00 Mechanical Ventilator 11/11/20 16:00 98.9 11/11/20 15:30 95 23 158/64 (95) 97 11/11/20 15:15 69 24 80 11/11/20 15:00 22 158/57 Endotracheal Tube 60 11/11/20 15:00 91 22 156/64 (94) 97 11/11/20 14:30 85 22 158/57 (90) 97 11/11/20 14:00 24 127/60 Endotracheal Tube 60 11/11/20 14:00 80 22 153/56 (88) 98 11/11/20 13:55 80 11/11/20 13:30 73 25 127/60 (82) 99 11/11/20 13:00 25 117/48 Endotracheal Tube 60 12/21/20 13:00 73 26 117/48 (71) 99 11/11/20 12:30 74 26 124/51 (75) 98 11/11/20 12:00 Mechanical Ventilator 11/11/20 12:00 26 128/52 Endotracheal Tube 60 11/11/20 12:00 60 11/11/20 12:00 75 11/11/20 12:00 77 26 119/50 (73) 97 11/11/20 11:30 78 26 128/52 (77) 97 11/11/20 11:00 26 114/48 Endotracheal Tube 60 11/11/20 11:00 78 26 114/48 (70) 97 11/11/20 10:45 85 26 100 11/11/20 10:30 86 26 147/62 (90) 94 Intake and Output 11/11/20 11/12/20 19:00 07:00 Intake Total 686.9594 ml 881.1 ml Output Total 0 ml Balance 686.9594 ml 881.1 ml Intake Oral 0 ml 0 ml IV Total 686.9594 ml 881.1 ml Output Stool Total 0 ml # Voids 600 504 # Bowel Movements 3 3 Laboratory Tests 11/12/20 03:55: White Blood Count 10.7, Red Blood Count 3.79L, Hemoglobin 11.8L, Hematocrit 34.6L, Mean Corpuscular Volume 91, Mean Corpuscular Hemoglobin 31.3H, Mean Corpuscular Hemoglobin Concent 34.2, Red Cell Distribution Width 14.6, Platelet Count 139L, Mean Platelet Volume 7.5, Neutrophils (%) (Auto) , Lymphocytes (%) (Auto) , Monocytes (%) (Auto) , Eosinophils (%) (Auto) , Basophils (%) (Auto) , Sodium Level 151H, Potassium Level 4.2, Chloride Level 119H, Carbon Dioxide Level 26, Anion Gap 6, Blood Urea Nitrogen 87H, Creatinine 1.6H, Estimat Glom erular Filtration Rate 41.4, Glucose Level 271H, Calcium Level 7.2L, Total Bilirubin 0.9, Direct Bilirubin 0.4H, Aspartate Amino Transf (AST/SGOT) 23, Alanine Aminotransferase (ALT/SGPT) 21, Alkaline Phosphatase 106, Total Protein 5.5L, Albumin 1.3L, Globulin 4.2, Albumin/Globulin Ratio 0.3L, Triglycerides Level 79 Height (Feet): 6 Height (Inches): 1.00 Weight (Pounds): 190 Objective Exam limited due to COVID status and to conserve PPE. Per discussion with RN. General: Male A&o x 0 On intubated, sedated, moving all extremities spontaneously off sedation HEENT: Normocephalic cephalic atraumatic, pupils equal round reactive to light and accommodation, nares patent and no symmetrical, no tonsillar exudates, mucous membranes moist CV: Regular rate regular rhythm, no murmurs, rubs, or gallops Pulm: Lungs coarse breath sounds bilaterally. No wheezes, rhonchi, or rales GI: Soft, nontender, nondistended, bowel sounds present Neuro: Moving all extremities Ext: No lower extremity edema bilaterally Skin: no rashes lesions or ulcers Msk: Joints symmetrical in upper extremity and lower extremity bilaterally, no joint swelling. Lymph: No lymphadenopathy in upper extremity and lower extremity Assessment/Plan Status: stable Assessment/Plan: 84 yo M w DM2, HTN, ? CKD admitted for Covid19 PNA with SAMEER # acute hypoxemia Resp failure 2/2 covid PNA - higher FiO2 today > s/p intubation on 11/07/20. EtTube out on 11/11 but re-inserted # Covid PNA # Lactic acid elevation # elevated D dimer # Trop elevated - Patient full code. See Advanced care plan note. Will continue discussions as patient progresses - s/p IVF bolus in ED, will keep lung dry as much as possible - s/p decadron 6mg iv daily - solumedrol Q12hr (11/08 - ) - Remdesivir per ID (11/09 - ) - azithromycin (11/08 - ) - Vancomycin (11/09 - ) - Zosyn (11/09 - ) - Abx per ID - pulm consult: Chasity - ID consult: Steven - Aneesh consult - trend ABG: reviewed - Continue Ac/VC - propofol for sedation - monitor triglycerides - Wean vent as tolerated - s/p NG tube 11/07 for meds. start tube feeding - IV fluids per nephro #S. hominis bacteremia, Contaminant? Defer to ID #Bilateral superimposed pneumonia - ID consulted: Dr. Harris - Follow surveilance cultures - Vanc per pharm (11/08 - ) - Zosyn (11/08 - ) # Malnutrition #HTN, current normotensive - Tube feedings - Appreciate surgery recs - D/w RN # DM2 uncontrolled #hyperglycemia - detemir 10 units BID - continue SSI - accuchecks - hypoglycemia protocol # SAMEER vs. SAMEER on CKD, likely prerenal # Dehydration - renal consult - Gentle IV fluids - i/o monitor, montilla cath FENPPX DVTPPX: lovenox GI PPX: protonix Fluids: per nephro Diet: NPO, tube feedings PT/OT: deferred Code status: Full code Dispo: SNF eventually. Guarded prognosis. Family aware Reason for Continued Hospitalization: Hypoxia Time of my involvement, the patient's condition was critical with high potential for and/or physiologic deterioration secondary to acute hypoxic respiratory failure as delineated in the note above. On the above date of service, I spent a total of 37 minutes in the ICU evaluating, managing, and providing critical care services to this patient, including time spent documenting these activities, counseling patient/family, and coordinating care. Critical care services performed include: -Telemetry review -Hemodynamic measurement interpretation -Laboratory data review and interpretation -Vent setting reviewed, management -Discussion of care plans with patient, family, and/or surrogate decision makers -Discussion of patient's care with primary medical team, surgical team, and/or consulting service -Decision to obtain further radiologic evaluation, after consideration of the risk/benefit ratio -Review of most recent microbiology results assessment and modification of antimicrobial coverage -Discussion of patient's CODE STATUS and further advancement towards the ultimate goals of care. Plan outlined above discussed with patient/family, PEDIATRIC MEDICAL ASSISTANT, ICU team, and involved physician/consultants. Time of note not necessarily time patient was seen Rudy Poole M.D. Nov 12, 2020 10:45
--- NOTE | 2020-11-12 11:49 | Surgery Progress Note ---
Surgery Progress Note Subjective Procedure Performed Right femoral central venous catheter insertion Additional Comments labs noted no n/v ill appearing O2 requirement up Objective Last 24 Hour Vital Signs Date Time Temp Pulse Resp B/P (MAP) Pulse Ox O2 Delivery O2 Flow Rate FiO2 11/12/20 11:00 86 26 118/51 (73) 100 11/12/20 11:00 26 118/51 Mechanical Ventilator 100 11/12/20 10:00 26 111/50 Mechanical Ventilator 100 11/12/20 10:00 93 26 111/50 (70) 98 11/12/20 09:00 92 30 104/41 (62) 92 11/12/20 09:00 30 104/41 Mechanical Ventilator 100 11/12/20 08:00 100 11/12/20 08:00 100.1 108 28 130/46 (74) 88 11/12/20 08:00 113 11/12/20 08:00 28 130/46 Mechanical Ventilator 100 11/12/20 08:00 Mechanical Ventilator 11/12/20 07:28 103 29 100 11/12/20 07:00 98 27 137/46 (76) 88 11/12/20 07:00 27 137/46 Mechanical Ventilator 70 11/12/20 06:00 83 28 128/55 (79) 93 11/12/20 06:00 27 124/44 70 11/12/20 05:00 75 27 124/44 (70) 95 11/12/20 05:00 27 124/44 Mechanical Ventilator 70 11/12/20 04:00 100.0 70 25 97/42 (60) 94 11/12/20 04:00 Mechanical Ventilator 11/12/20 04:00 70 11/12/20 04:00 25 97/42 Mechanical Ventilator 70 11/12/20 04:00 70 11/12/20 03:29 70 25 97 Bi-Pap 70 11/12/20 03:28 70 26 70 11/12/20 03:00 71 27 103/44 (63) 95 11/12/20 03:00 27 103/44 Mechanical Ventilator 70 11/12/20 02:00 74 27 101/42 (61) 94 11/12/20 02:00 27 101/42 Mechanical Ventilator 70 11/12/20 01:00 83 30 114/47 (69) 92 11/12/20 01:00 30 114/47 Mechanical Ventilator 70 11/12/20 00:00 100.5 96 27 149/54 (85) 93 11/12/20 00:00 100 11/12/20 00:00 70 11/12/20 00:00 27 149/54 Mechanical Ventilator 70 11/12/20 00:00 Mechanical Ventilator 11/11/20 23:14 87 26 70 11/11/20 23:00 87 25 138/52 (80) 96 11/11/20 23:00 25 138/52 Mechanical Ventilator 80 11/11/20 22:00 27 149/54 Mechanical Ventilator 80 11/11/20 22:00 81 28 121/48 (72) 96 11/11/20 21:00 27 124/57 Mechanical Ventilator 80 11/11/20 21:00 87 27 124/57 (79) 94 11/11/20 20:00 99.5 95 26 135/56 (82) 95 11/11/20 20:00 80 11/11/20 20:00 26 135/56 Mechanical Ventilator 80 11/11/20 20:00 Mechanical Ventilator 11/11/20 20:00 95 11/11/20 19:30 94 27 80 11/11/20 19:00 99.3 100 24 153/60 (91) 95 11/11/20 19:00 24 153/60 Endotracheal Tube 80 11/11/20 18:30 101 24 162/66 (98) 95 11/11/20 18:00 25 161/69 Endotracheal Tube 80 11/11/20 18:00 99 25 156/65 (95) 95 11/11/20 17:30 100 25 158/65 (96) 95 11/11/20 17:00 24 151/62 Endotracheal Tube 80 11/11/20 17:00 95 25 161/69 (99) 95 11/11/20 16:30 99 24 158/64 (95) 95 11/11/20 16:00 97 23 158/51 (86) 96 11/11/20 16:00 95 11/11/20 16:00 80 11/11/20 16:00 23 156/64 Endotracheal Tube 80 11/11/20 16:00 Mechanical Ventilator 11/11/20 16:00 98.9 11/11/20 15:30 95 23 158/64 (95) 97 11/11/20 15:15 69 24 80 11/11/20 15:00 22 158/57 Endotracheal Tube 60 11/11/20 15:00 91 22 156/64 (94) 97 11/11/20 14:30 85 22 158/57 (90) 97 11/11/20 14:00 24 127/60 Endotracheal Tube 60 11/11/20 14:00 80 22 153/56 (88) 98 11/11/20 13:55 80 11/11/20 13:30 73 25 127/60 (82) 99 11/11/20 13:00 25 117/48 Endotracheal Tube 60 11/11/20 13:00 73 26 117/48 (71) 99 11/11/20 12:30 74 26 124/51 (75) 98 11/11/20 12:00 Mechanical Ventilator 11/11/20 12:00 26 128/52 Endotracheal Tube 60 11/11/20 12:00 60 11/11/20 12:00 75 11/11/20 12:00 77 26 119/50 (73) 97 I&O Intake and Output 11/11/20 11/12/20 19:00 07:00 Intake Total 686.9594 ml 956.1 ml Output Total 0 ml Balance 686.9594 ml 956.1 ml Intake Oral 0 ml 0 ml IV Total 686.9594 ml 956.1 ml Output Stool Total 0 ml # Voids 600 504 # Bowel Movements 3 3 Cardiovascular: RSR Respiratory: decreased breath sounds, other Abdomen: soft, non-tender, present bowel sounds, non-distended Extremities: edema, no tenderness, no cyanosis Laboratory Tests Test 11/12/20 03:55 White Blood Count 10.7 K/UL (4.8-10.8) Red Blood Count 3.79 M/UL (4.70-6.10) L Hemoglobin 11.8 G/DL (14.2-18.0) L Hematocrit 34.6 % (42.0-52.0) L Mean Corpuscular Volume 91 FL (80-99) Mean Corpuscular Hemoglobin 31.3 PG (27.0-31.0) H Mean Corpuscular Hemoglobin Concent 34.2 G/DL (32.0-36.0) Red Cell Distribution Width 14.6 % (11.6-14.8) Platelet Count 139 K/UL (150-450) L Mean Platelet Volume 7.5 FL (6.5-10.1) Neutrophils (%) (Auto) % (45.0-75.0) Lymphocytes (%) (Auto) % (20.0-45.0) Monocytes (%) (Auto) % (1.0-10.0) Eosinophils (%) (Auto) % (0.0-3.0) Basophils (%) (Auto) % (0.0-2.0) Sodium Level 151 MMOL/L (136-145) H Potassium Level 4.2 MMOL/L (3.5-5.1) Chloride Level 119 MMOL/L (98-107) H Carbon Dioxide Level 26 MMOL/L (21-32) Anion Gap 6 mmol/L (5-15) Blood Urea Nitrogen 87 mg/dL (7-18) H Creatinine 1.6 MG/DL (0.55-1.30) H Estimat Glomerular Filtration Rate 41.4 mL/min (>60) Glucose Level 271 MG/DL (74-106) H Calcium Level 7.2 MG/DL (8.5-10.1) L Total Bilirubin 0.9 MG/DL (0.2-1.0) Direct Bilirubin 0.4 MG/DL (0.0-0.3) H Aspartate Amino Transf (AST/SGOT) 23 U/L (15-37) Alanine Aminotransferase (ALT/SGPT) 21 U/L (12-78) Alkaline Phosphatase 106 U/L (46-116) Total Protein 5.5 G/DL (6.4-8.2) L Albumin 1.3 G/DL (3.4-5.0) L Globulin 4.2 g/dL Albumin/Globulin Ratio 0.3 (1.0-2.7) L Triglycerides Level 79 MG/DL (30-150) Plan Problems: (1) ARDS (adult respiratory distress syndrome) Assessment & Plan: 84-year-old male who pressor insufficiency ARDS Covid on vent ET tube in place chest x-ray reviewed central line in place on sedation. Continue daily weaning trials. NG tube okay for diet tube feeds continue. Microbiology reviewed labs reviewed. Trend labs. IV fluids. Will follow with recommendations thank you for let me participate patient's care DAILY ESTIMATED NEEDS: Needs based on Critcal care 82.4kg abw 22-28 kcals/kg 0878-9429 total kcals 1.2-2 g protein/kg 99-165 g total protein 20-25/ or per MD mL/kg 5070-1041 total fluid mLs NUTRITION DIAGNOSIS: Swallowing difficulty r/t respiratory status as evidenced by 84 y/o M adm w/ covid++, now orally intubated, NPO. ENTERAL NUTRITION RECOMMENDATIONS: VITAL 1.2 GOAL OF 65ml/hr x24 hrs to provide 1560ml, 1872 kcal, 117g pro, 1265ml free H2O - When hemodynamically stable, rec to start non oral feeds to meet est kcal and pro needs. - Start Vital 1.2 @35ml/hr for 6 hrs, advance as tolerated 10ml/hr q4-6 hrs to goal. - Flush per MD. HOB over 30 degrees ADDITIONAL RECOMMENDATIONS: 1) Maintain calibrated bed scale wts 2) Followed by end, monitor for hypoglycemia while NPO 3) Feed when hemodynamically stable, TF recs as above for critical care, carb control, high pro content to meet est needs 4) Re-evaluate TF w/ change in propofol rate-> current rate w/ TF's do NOT exceed est needs. (2) Hypoxemia (3) Renal failure (4) Elevated troponin (5) COVID-19 Tommie Barone Nov 12, 2020 11:49
--- NOTE | 2020-11-12 12:00 | NUR ---
NURSE NOTES:Pt seen by Dr Gaspar. Ginna reviweed with RT Bree. [place] gtt to be ordered per Dr Gaspar. Pt afebrile with ice packs on. Repositioned. PO care provided. No distress noted.
--- NOTE | 2020-11-12 12:43 | NUR ---
NURSE NOTES: Pt seen by Dr Hong - made aware that pt's urine output has been approx 10-15 cc/hr. ABGs also reviewed. Dr Hong states bicarb gtt not indicated at this time and that he will discuss w/ Dr Gaspar.
[2020-11-12] MEDS: Maintenance Dose:Remdesivir 100mg/NS 230ml x 4 Doses IV SCH ×2 (13:30)
--- NOTE | 2020-11-12 14:00 | NUR ---
NURSE NOTES: Pt repositioned. No distress noted.
--- NOTE | 2020-11-12 15:37 | Pulmonology Progress Note ---
Subjective ROS Limited/Unobtainable: Yes Interval Events: remains intubated Constitutional: Reports: fever, other - Dk=630.5 HEENT: Repors: no symptoms Respiratory: Reports: no symptoms Cardiovascular: Reports: no symptoms Gastrointestinal/Abdominal: Reports: no symptoms Allergies: Coded Allergies: No Known Allergies (Unverified , 11/06/20) Objective Last 24 Hour Vital Signs Date Time Temp Pulse Resp B/P (MAP) Pulse Ox O2 Delivery O2 Flow Rate FiO2 11/12/20 15:00 62 20 116/44 (68) 100 11/12/20 15:00 20 116/44 Mechanical Ventilator 90 11/12/20 14:38 90 11/12/20 14:37 86 23 90 11/12/20 14:00 68 23 116/49 (71) 100 11/12/20 14:00 23 116/49 Mechanical Ventilator 100 11/12/20 13:00 26 116/46 Mechanical Ventilator 100 11/12/20 13:00 77 26 116/46 (69) 100 11/12/20 12:00 Mechanical Ventilator 11/12/20 12:00 75 11/12/20 12:00 100 11/12/20 12:00 25 120/44 Mechanical Ventilator 100 11/12/20 12:00 97.5 78 25 120/44 (69) 100 11/12/20 11:20 81 25 100 11/12/20 11:00 86 26 118/51 (73) 100 11/12/20 11:00 26 118/51 Mechanical Ventilator 100 11/12/20 10:00 26 111/50 Mechanical Ventilator 100 11/12/20 10:00 93 26 111/50 (70) 98 11/12/20 09:00 92 30 104/41 (62) 92 11/12/20 09:00 30 104/41 Mechanical Ventilator 100 11/12/20 08:00 100 11/12/20 08:00 100.1 108 28 130/46 (74) 88 11/12/20 08:00 113 11/12/20 08:00 28 130/46 Mechanical Ventilator 100 11/12/20 08:00 Mechanical Ventilator 11/12/20 07:28 103 29 100 11/12/20 07:00 98 27 137/46 (76) 88 11/12/20 07:00 27 137/46 Mechanical Ventilator 70 12/22/20 06:00 83 28 128/55 (79) 93 11/12/20 06:00 27 124/44 70 11/12/20 05:00 75 27 124/44 (70) 95 11/12/20 05:00 27 124/44 Mechanical Ventilator 70 11/12/20 04:00 100.0 70 25 97/42 (60) 94 11/12/20 04:00 Mechanical Ventilator 11/12/20 04:00 70 11/12/20 04:00 25 97/42 Mechanical Ventilator 70 11/12/20 04:00 70 11/12/20 03:29 70 25 97 Bi-Pap 70 11/12/20 03:28 70 26 70 11/12/20 03:00 71 27 103/44 (63) 95 11/12/20 03:00 27 103/44 Mechanical Ventilator 70 11/12/20 02:00 74 27 101/42 (61) 94 11/12/20 02:00 27 101/42 Mechanical Ventilator 70 11/12/20 01:00 83 30 114/47 (69) 92 11/12/20 01:00 30 114/47 Mechanical Ventilator 70 11/12/20 00:00 100.5 96 27 149/54 (85) 93 11/12/20 00:00 100 11/12/20 00:00 70 11/12/20 00:00 27 149/54 Mechanical Ventilator 70 11/12/20 00:00 Mechanical Ventilator 11/11/20 23:14 87 26 70 11/11/20 23:00 87 25 138/52 (80) 96 11/11/20 23:00 25 138/52 Mechanical Ventilator 80 11/11/20 22:00 27 149/54 Mechanical Ventilator 80 11/11/20 22:00 81 28 121/48 (72) 96 11/11/20 21:00 27 124/57 Mechanical Ventilator 80 11/11/20 21:00 87 27 124/57 (79) 94 11/11/20 20:00 99.5 95 26 135/56 (82) 95 11/11/20 20:00 80 11/11/20 20:00 26 135/56 Mechanical Ventilator 80 11/11/20 20:00 Mechanical Ventilator 11/11/20 20:00 95 11/11/20 19:30 94 27 80 11/11/20 19:00 99.3 100 24 153/60 (91) 95 11/11/20 19:00 24 153/60 Endotracheal Tube 80 11/11/20 18:30 101 24 162/66 (98) 95 11/11/20 18:00 25 161/69 Endotracheal Tube 80 11/11/20 18:00 99 25 156/65 (95) 95 11/11/20 17:30 100 25 158/65 (96) 95 11/11/20 17:00 24 151/62 Endotracheal Tube 80 11/11/20 17:00 95 25 161/69 (99) 95 11/11/20 16:30 99 24 158/64 (95) 95 11/11/20 16:00 97 23 158/51 (86) 96 11/11/20 16:00 95 11/11/20 16:00 80 11/11/20 16:00 23 156/64 Endotracheal Tube 80 11/11/20 16:00 Mechanical Ventilator 11/11/20 16:00 98.9 Intake and Output 11/11/20 11/12/20 19:00 07:00 Intake Total 686.9594 ml 956.1 ml Output Total 0 ml Balance 686.9594 ml 956.1 ml Intake Oral 0 ml 0 ml IV Total 686.9594 ml 956.1 ml Stool Total 0 ml # Voids 600 504 # Bowel Movements 3 3 General Appearance: no acute distress HEENT: normocephalic Respiratory: chest wall non-tender, lungs clear Cardiovascular: normal peripheral pulses, normal rate Abdomen: normal bowel sounds Laboratory Tests 11/12/20 03:55: White Blood Count 10.7, Red Blood Count 3.79L, Hemoglobin 11.8L, Hematocrit 34.6L, Mean Corpuscular Volume 91, Mean Corpuscular Hemoglobin 31.3H, Mean Corpuscular Hemoglobin Concent 34.2, Red Cell Distribution Width 14.6, Platelet Count 139L, Mean Platelet Volume 7.5, Neutrophils (%) (Auto) , Lymphocytes (%) (Auto) , Monocytes (%) (Auto) , Eosinophils (%) (Auto) , Basophils (%) (Auto) , Sodium Level 151H, Potassium Level 4.2, Chloride Level 119H, Carbon Dioxide Level 26, Anion Gap 6, Blood Urea Nitrogen 87H, Creatinine 1.6H, Estimat Glomerular Filtration Rate 41.4, Glucose Level 271H, Calcium Level 7.2L, Total Bilirubin 0.9, Direct Bilirubin 0.4H, Aspartate Amino Transf (AST/SGOT) 23, Alanine Aminotransferase (ALT/SGPT) 21, Alkaline Phosphatase 106, Total Protein 5.5L, Albumin 1.3L, Globulin 4.2, Albumin/Globulin Ratio 0.3L, Triglycerides Level 79 11/12/20 11:27: Arterial Blood pH 7.265L, Arterial Blood Partial Pressure CO2 48.4H, Arterial Blood Partial Pressure O2 70.2L, Arterial Blood HCO3 21.5L, Arterial Blood Oxygen Saturation 90.9L, Arterial Blood Base Excess -5.6L, Jonathan Test Positive Current Medications Medications (Trade) Dose Ordered Sig/Violet Route PRN Reason Start Time Stop Time Status Last Admin Dose Admin Acetaminophen (Tylenol) 650 mg Q4H PRN GT Temp >100.5 11/12/20 11:00 12/12/20 10:44 Chlorhexidine Gluconate (Patt-Hex 2%) 1 applic DAILY@2000 TOPIC 11/09/20 20:00 02/07/21 19:59 11/11/20 21:09 Dextrose 500 ml @ 75 mls/hr EVERY 6 HOURS IV 11/11/20 13:00 12/11/20 12:59 11/12/20 12:04 Dextrose 1,000 ml @ 0 mls/hr Q0M IV 11/12/20 09:15 12/12/20 09:14 Dextrose (Dextrose 50%) 25 ml Q30M PRN IV Hypoglycemia 11/06/20 20:00 02/04/21 19:59 Dextrose (Dextrose 50%) 50 ml Q30M PRN IV Hypoglycemia 11/06/20 20:00 02/04/21 19:59 Enoxaparin Sodium (Lovenox) 40 mg Q24H SUBQ 11/07/20 21:00 02/05/21 20:59 11/11/20 21:13 Flumazenil (Romazicon) 0.2 mg NEEDED PRN IV Sedation reversal 11/06/20 20:00 Insulin Aspart (NovoLOG) EVERY 6 HOURS SUBQ 11/08/20 12:00 02/05/21 16:29 11/12/20 12:05 Insulin Detemir (Levemir) 10 units EVERY 12 HOURS SUBQ 11/09/20 11:15 02/05/21 20:59 11/12/20 08:16 Methylprednisolone Sodium Succinate (Solu-MEDROL) 40 mg Q12HR IVP 11/08/20 12:00 11/15/20 11:59 11/12/20 08:13 Naloxone HCl (Narcan) 0.4 mg NEEDED PRN IVP RR less than 6/min 11/06/20 20:00 02/04/21 19:59 Ondansetron HCl (Zofran) 4 mg Q6H PRN IVP Nausea & Vomiting 11/06/20 20:00 12/06/20 19:59 Pantoprazole (Protonix) 40 mg DAILY IVP 11/08/20 09:00 12/08/20 08:59 11/12/20 08:13 Piperacillin Sod/ Tazobactam Sod 3.375 gm/Sodium Chloride 110 ml @ 27.5 mls/hr EVERY 12 HOURS IVPB 11/08/20 13:00 11/17/20 23:59 11/12/20 08:13 Propofol 100 ml @ 0 mls/hr Q12H IV 11/11/20 20:11 11/13/20 20:10 11/12/20 06:00 Assessment/Plan Assessment/Plan IMPRESSION: 1. COVID-19 pneumonia. 2. Diabetes mellitus. 3. Hypertension. 4. Hyperkalemia. 5. CKD. 6. Metabolic acidosis. 7. Respiratory Failure; Acute Lung Injury DISCUSSION: Continue broad-spectrum antibiotics. Continue vent/AC mode Currently FiO2 60%; PEEP 5 Endo tracheal tube adjusted; pt holding volumes on vent now Blood sugar control, Continue Decadron. On propofol Check labs and ABG AM CXR unchanged Jud Werner Omar Syed MD Nov 12, 2020 15:37
--- NOTE | 2020-11-12 16:00 | NUR ---
NURSE NOTES: Pt repositioned. Afebrile. PO care provided. No distress noted. FiO2 titrated down to 80 % - spO2 100%.
--- NOTE | 2020-11-12 16:59 | NUR ---
CASE MANAGEMENT:REVIEW 11/12/20 SI: COVID POSITIVE ~ INTUBATED 97.3 64 22 122/44 99% ON VENT SUPPORT W/80% FIO2 NA+151 BUN+87 CR+1.6 IS: IV REMDESIVIR Q24 (03/26) IV ZOSYN Q12 IV SOLUMEDROL Q12 IV PROTONIX QD PROPOFOL GTT IVF@75/HR : ICU STATUS DCP: FROM HOME
--- NOTE | 2020-11-12 17:04 | NUR ---
[employer]URANCE [employer]INCALS AND REVIEW FAXED
--- NOTE | 2020-11-12 18:00 | NUR ---
NURSE NOTES: Pt repositioned. No distress noted. FiO2 now at 60 $. SpO2 95 %.
--- NOTE | 2020-11-12 19:10 | NUR ---
NURSE HAND-OFF REPORT: Latest Vital Signs: Temperature 97.3 , Pulse 75 , B/P 117 /36 , Respiratory Rate 20 , O2 SAT 99 , Mechanical Ventilator, FiO2 60 % . Vital Sign Comment: EKG Rhythm: Sinus Rhythm Rhythm change?: N MD Notified?: n/a MD Response: n/a Latest Blackwell Fall Score: 50 Fall Risk: High Risk Safety Measures: Call light Within Reach, Bed Alarm Zone 1, Side Rails Side Rails x3, Bed position Low and Locked. Fall Precautions: Yellow Socks Yellow Gown Door Sign Patient Fall Education Report given to LYNDA De La Rosa. Endorsed to continue titrating down FiO2 and tube feeding to goal of 65 as tolerated.
--- NOTE | 2020-11-12 19:30 | NUR ---
NURSE NOTES: Received pt in bed, on vent via ETT, not showing any signs of distress at 60% FiO2. Pt sedated with Profopol @ 10mcg/kg/min. OGT in place with Vital AF running @ 40cc/hr. Bilateral soft wrist restraints in place for safety. D5W infusing @ 75cc/hr via Rt femoral TLC. Douglas cath in place draining light ishmael urine. Bed in low position, side rails up x2. VSS and pt is SR on the monitor.
[2020-11-12] MEDS: Dyna-Hex 2% Top Sol 2oz TOPIC SCH (20:55)
--- NOTE | 2020-11-12 20:58 | NUR ---
NURSE NOTES: Accucheck 424. Pt asymptomatic with stable VS. Paged Dr. Hong, awaiting call back.
[2020-11-12] MEDS: Enoxaparin 40mg Inj SUBQ SCH (20:59)
[2020-11-12] MEDS: Sodium Bicarbonate 50 ML in D5W 1000ml 1,000 ML IV SCH (21:00)
--- NOTE | 2020-11-12 21:00 | NUR ---
NURSE NOTES: Spoke with Dr. Gaspar on the phone to clarify bicarb drip. Ssya it should be continuous and D5W previously ordered should be dc'd. Relayed to [facility].
--- NOTE | 2020-11-12 21:50 | NUR ---
NURSE NOTES: Spoke to Dr. Gonzalez who gives orders to give pt 14 units Novolog stat, Levimir 10 units as schedules and stat labs.
[2020-11-12] MEDS ORDERED: NovoLOG Insulin Flexpen SUBQ SCH (22:03)
[2020-11-12 23:14] LABS: CALCIUM 7.1 MG/DL (8.5-10.1); CREATININE 2.1 MG/DL (0.55-1.30); POTASSIUM 3.2 MMOL/L (3.5-5.1)
--- NOTE | 2020-11-12 23:50 | NUR ---
NURSE NOTES: Spoke on the phone again to Dr. Gonzalez to relay lab results ordered and latest sugar of 388. Another 14 units Novolog ordered stat.
[2020-11-12] MEDS ORDERED: NovoLOG Insulin Flexpen SUBQ STA (23:58)
[2020-11-13] VITALS (24 sets, daily range): BP systolic 96–149; BP diastolic 11–58
--- NOTE | 2020-11-13 01:20 | NUR ---
NURSE NOTES: Spoke on the phone with Dr. Gonzalez to relay repeat blood sugar of 375 with orders to give another 10 units Novolog and repeat accucheck after an hour.
[2020-11-13] MEDS ORDERED: NovoLOG Insulin Flexpen SUBQ SCH ×2 (01:30→03:00)
--- NOTE | 2020-11-13 02:56 | NUR ---
NURSE NOTES: Spoke to Dr. Gonzalez again to relay latest blood sugar of 340. Another 10 units Novolog ordered.
--- NOTE | 2020-11-13 04:00 | NUR ---
NURSE NOTES: While giving AM care to pt together with LYNDA Rubi, pt's BP went down ro the 70's but went up again after putting pt flat on bed. Saturation also went down to the 80's but went up after FiO2 was increased to 100%. Blood sugar was checked and was 314.
--- NOTE | 2020-11-13 04:50 | NUR ---
NURSE NOTES: Spoke to Dr Glory Gonzalez regardng pts blood sugar of 314 and was told to repeat in hour without giving any insulin. MD made aware that pt's urine output is decreasing to about 20-25/hr.
[2020-11-13] MEDS: NovoLOG Insulin Flexpen SUBQ SCH ×4 (06:30→23:00)
--- NOTE | 2020-11-13 06:30 | NUR ---
NURSE NOTES: Spoke to Dr. Gonzalez to relay blood sugar of 291. Orders to give Novolog per sliding scale. Will continue to monitor pt.
--- NOTE | 2020-11-13 07:15 | NUR ---
NURSE HAND-OFF REPORT: Latest Vital Signs: Temperature 98.4 , Pulse 72 , B/P 106 /11 , Respiratory Rate 20 , O2 SAT 95 , Mechanical Ventilator, O2 Flow Rate . Vital Sign Comment: stable EKG Rhythm: Sinus Tachycardia Rhythm change?: N MD Notified?: N - MD Response: Latest Blackwell Fall Score: 50 Fall Risk: High Risk Safety Measures: Call light Within Reach, Bed Alarm Zone 1, Side Rails Side Rails x3, Bed position Low and Locked. Fall Precautions: Yellow Socks Yellow Gown Door Sign Patient Fall Education Report given to LYNDA Hutchinson.
--- NOTE | 2020-11-13 07:16 | NUR ---
NURSE NOTES: Pt received from LYNDA De La Rosa. Pt grimaces to light pain stimuli; however, does not open eyes or follow commands; gag relfex remains intact; bilat pupils equal and round 3mm with sluggish rxn to light. Pt is SR to chief technical officer with 2+ radial and dorsalis pedis pulses. Nonpitting edema noted to hands. Afebrile. cap refill less than 2 sec. Pt is orally intubated with a 7.5 ETT noted 25 cm at the lip with the following: AC 16 TV 500 FiO2 60 % Peep 5. lung rueda noted diminished upon auscultation. OGT noted running Vital 1.2 at 40 cc/hr (will titrate up as tolerated). Abdomen is round and soft w/ active bowel sounds to all quadrants. F/C noted draining light ishmael, clear urine. Skin is intact. Pt has a R Fem TLC with dry and intact dressing running D5W w/ NaHCO3 at 50 cc/hr. Bed in lowest position, alarm on, side rails up x 3, call light within reach. Will continue to monitor.
[2020-11-13 07:28] LABS: CALCIUM 7.5 MG/DL (8.5-10.1); POTASSIUM 3.2 MMOL/L (3.5-5.1)
[2020-11-13] MEDS: propofoL 1,000mg/100ml 100 ML IV SCH (07:39)
[2020-11-13 07:55] LABS: HEMATOCRIT 36.7 % (42.0-52.0); HEMOGLOBIN 12.5 G/DL (14.2-18.0); MEAN CORPUSCULAR VOLUME 91 FL (80-99); PLATELET COUNT 191 K/UL (150-450); RED BLOOD COUNT 4.01 M/UL (4.70-6.10); RED CELL DISTRIBUTION WIDTH 14.6 % (11.6-14.8); WHITE BLOOD COUNT 16.6 K/UL (4.8-10.8)
--- NOTE | 2020-11-13 08:00 | NUR ---
NURSE NOTES: Pt repositioned. PO care provided.
[2020-11-13] MEDS: Piperacillin/Tazobactam 3.375 GM in NS 110 ML IVPB SCH ×2 (09:05→20:58)
[2020-11-13] MEDS: Solu-MEDROL 40mg Inj IVP SCH ×2 (09:05→20:58)
[2020-11-13] MEDS: Pantoprazole Inj IVP SCH (09:05)
[2020-11-13] MEDS: Levemir Flexpen SUBQ SCH ×2 (09:09→21:00)
--- NOTE | 2020-11-13 09:55 | NUR ---
NURSE NOTES: Dr Gaspar assessing pt at bedside. ABGs reviewed. Received order to increase TV to 600. Dr Gaspar made aware of change in mental status and that pt only grimaces to pain when orally suctioned but does not move extremities or open eyes spontaneously since approximately 0400.
--- NOTE | 2020-11-13 11:00 | Pulmonology Progress Note ---
Subjective ROS Limited/Unobtainable: Yes Interval Events: remains intubated Constitutional: Reports: fever, other - Ax=820.5 HEENT: Repors: no symptoms Respiratory: Reports: no symptoms Cardiovascular: Reports: no symptoms Gastrointestinal/Abdominal: Reports: no symptoms Allergies: Coded Allergies: No Known Allergies (Unverified , 11/06/20) Objective Last 24 Hour Vital Signs Date Time Temp Pulse Resp B/P (MAP) Pulse Ox O2 Delivery O2 Flow Rate FiO2 11/13/20 09:57 60 11/13/20 08:00 60 11/13/20 07:26 84 23 60 11/13/20 07:00 72 20 106/11 (42) 95 11/13/20 06:00 83 21 127/16 (53) 96 11/13/20 05:00 82 19 118/21 (53) 96 11/13/20 04:00 60 11/13/20 04:00 23 133/44 Mechanical Ventilator 60 11/13/20 04:00 105 11/13/20 04:00 98.4 100 23 133/44 (73) 94 11/13/20 04:00 Mechanical Ventilator 11/13/20 03:30 103 23 60 11/13/20 03:00 103 22 132/58 (82) 94 11/13/20 03:00 22 132/58 Mechanical Ventilator 60 11/13/20 02:00 22 145/49 Mechanical Ventilator 60 11/13/20 02:00 93 21 136/47 (76) 96 11/13/20 01:00 20 133/46 Mechanical Ventilator 60 11/13/20 01:00 78 20 122/45 (70) 97 11/13/20 00:00 Mechanical Ventilator 11/13/20 00:00 60 11/13/20 00:00 76 11/13/20 00:00 20 112/34 Mechanical Ventilator 60 11/13/20 00:00 98.3 71 20 129/44 (72) 98 11/12/20 23:30 66 18 60 11/12/20 23:00 78 19 129/40 (69) 97 11/12/20 23:00 19 129/40 Mechanical Ventilator 60 11/12/20 22:00 19 120/44 Endotracheal Tube 60 11/12/20 22:00 70 19 120/44 (69) 98 11/12/20 21:00 80 21 117/36 (63) 97 11/12/20 21:00 19 117/36 Mechanical Ventilator 60 11/12/20 20:00 Mechanical Ventilator 11/12/20 20:00 19 125/40 Mechanical Ventilator 60 11/12/20 20:00 73 11/12/20 20:00 98.0 73 19 125/40 (68) 96 11/12/20 19:30 80 19 60 11/12/20 19:00 75 20 117/36 (63) 99 11/12/20 19:00 20 117/36 Mechanical Ventilator 60 11/12/20 18:00 64 20 110/36 (60) 97 11/12/20 18:00 18 101/33 60 11/12/20 17:43 60 11/12/20 17:00 21 104/66 Mechanical Ventilator 70 11/12/20 17:00 70 21 104/66 (79) 94 11/12/20 16:38 70 11/12/20 16:30 71 19 124/43 (70) 99 11/12/20 16:15 80 11/12/20 16:00 80 11/12/20 16:00 Mechanical Ventilator 11/12/20 16:00 64 11/12/20 16:00 22 122/44 Mechanical Ventilator 80 11/12/20 16:00 97.3 67 22 122/44 (70) 100 11/12/20 15:00 62 20 116/44 (68) 100 11/12/20 15:00 20 116/44 Mechanical Ventilator 90 11/12/20 14:38 90 11/12/20 14:37 86 23 90 11/12/20 14:00 68 23 116/49 (71) 100 11/12/20 14:00 23 116/49 Mechanical Ventilator 100 11/12/20 13:00 26 116/46 Mechanical Ventilator 100 11/12/20 13:00 77 26 116/46 (69) 100 11/12/20 12:00 Mechanical Ventilator 11/12/20 12:00 75 11/12/20 12:00 100 11/12/20 12:00 25 120/44 Mechanical Ventilator 100 11/12/20 12:00 97.5 78 25 120/44 (69) 100 11/12/20 11:20 81 25 100 11/12/20 11:00 86 26 118/51 (73) 100 11/12/20 11:00 26 118/51 Mechanical Ventilator 100 Intake and Output 11/12/20 11/13/20 19:00 07:00 Intake Total 1317.052 ml 1029.039 ml Output Total 235 ml 348 ml Balance 1082.052 ml 681.039 ml Free Water 30 ml IV Total 1067.052 ml 629.039 ml Tube Feeding 220 ml 400 ml Output Urine Total 235 ml 348 ml Stool Total 0 ml # Bowel Movements 3 General Appearance: no acute distress HEENT: normocephalic Respiratory: chest wall non-tender, lungs clear Cardiovascular: normal peripheral pulses, normal rate Abdomen: normal bowel sounds Laboratory Tests 11/12/20 11:27: Arterial Blood pH 7.265L, Arterial Blood Partial Pressure CO2 48.4H, Arterial Blood Partial Pressure O2 70.2L, Arterial Blood HCO3 21.5L, Arterial Blood Oxygen Saturation 90.9L, Arterial Blood Base Excess -5.6L, Jonathan Test Positive 11/12/20 21:59: Venous Blood pH 7.246, Venous Blood Partial Pressure CO2 58.4, Venous Blood Partial Pressure O2 56.9, Venous Blood HCO3 24.8, Venous Blood Total Carbon Dioxide 58.4, Venous Blood Base Excess -3.2, Venous Blood Carboxyhemoglobin 0.3L , Methemoglobin 0.6 11/12/20 22:20: Sodium Level 144, Potassium Level 3.2L, Chloride Level 112H, Carbon Dioxide Level 27, Anion Gap 5, Blood Urea Nitrogen 99H, Creatinine 2.1H, Estimat Glomerular Filtration Rate 30.2, Glucose Level 468#H, Calcium Level 7.1L 11/12/20 23:34: POC Whole Blood Glucose 388H 11/13/20 01:02: POC Whole Blood Glucose 375H 11/13/20 02:47: POC Whole Blood Glucose [Pending] 11/13/20 03:50: Triglycerides Level 88 11/13/20 03:55: White Blood Count 16.6#H, Red Blood Count 4.01L, Hemoglobin 12.5L, Hematocrit 36.7L, Mean Corpuscular Volume 91, Mean Corpuscular Hemoglobin 31.2H, Mean Corpuscular Hemoglobin Concent 34.1, Red Cell Distribution Width 14.6, Platelet Count 191, Mean Platelet Volume 8.1, Neutrophils (%) (Auto) , Lymphocytes (%) (Auto) , Monocytes (%) (Auto) , Eosinophils (%) (Auto) , Basophils (%) (Auto) , Differential Total Cells Counted 100, Neutrophils % (Manual) 97H, Lymphocytes % (Manual) 2L, Monocytes % (Manual) 1, Eosinophils % (Manual) 0, Basophils % (Manual) 0, Band Neutrophils 0, Platelet Estimate Adequate, Platelet Morphology Normal, Anisocytosis 1+, Sodium Level 146H, Potassium Level 3.2L, Chloride Level 111H, Carbon Dioxide Level 24, Anion Gap 11, Blood Urea Nitrogen 102H, Creatinine 2.0H, Estimat Glomerular Filtration Rate 32.0, Glucose Level 344#H, Calcium Level 7.5L 11/13/20 08:48: Arterial Blood pH 7.264L, Arterial Blood Partial Pressure CO2 61.8*H, Arterial Blood Partial Pressure O2 71.9L, Arterial Blood HCO3 27.4H, Arterial Blood Oxygen Saturation 92.2L, Arterial Blood Base Excess -0.7, Jonathan Test Positive Current Medications Medications (Trade) Dose Ordered Sig/Violet Route PRN Reason Start Time Stop Time Status Last Admin Dose Admin Acetaminophen (Tylenol) 650 mg Q4H PRN GT Temp >100.5 11/12/20 11:00 12/12/20 10:44 Chlorhexidine Gluconate (Patt-Hex 2%) 1 applic DAILY@1999 TOPIC 11/09/20 20:00 02/07/21 19:59 11/12/20 20:55 Dextrose (Dextrose 50%) 25 ml Q30M PRN IV Hypoglycemia 11/06/20 20:00 02/04/21 19:59 Dextrose (Dextrose 50%) 50 ml Q30M PRN IV Hypoglycemia 11/06/20 20:00 02/04/21 19:59 Enoxaparin Sodium (Lovenox) 40 mg Q24H SUBQ 11/07/20 21:00 02/05/21 20:59 11/12/20 20:59 Flumazenil (Romazicon) 0.2 mg NEEDED PRN IV Sedation reversal 11/06/20 20:00 Insulin Aspart (NovoLOG) EVERY 6 HOURS SUBQ 11/08/20 12:00 02/05/21 16:29 11/13/20 06:30 Insulin Detemir (Levemir) 14 units EVERY 12 HOURS SUBQ 11/13/20 09:00 02/05/21 20:59 11/13/20 09:09 Methylprednisolone Sodium Succinate (Solu-MEDROL) 40 mg Q12HR IVP 11/08/20 12:00 11/15/20 11:59 11/13/20 09:05 Naloxone HCl (Narcan) 0.4 mg NEEDED PRN IVP RR less than 6/min 11/06/20 20:00 02/04/21 19:59 Ondansetron HCl (Zofran) 4 mg Q6H PRN IVP Nausea & Vomiting 11/06/20 20:00 12/06/20 19:59 Pantoprazole (Protonix) 40 mg DAILY IVP 11/08/20 09:00 12/08/20 08:59 11/13/20 09:05 Piperacillin Sod/ Tazobactam Sod 3.375 gm/Sodium Chloride 110 ml @ 27.5 mls/hr EVERY 12 HOURS IVPB 11/08/20 13:00 11/17/20 23:59 11/13/20 09:05 Potassium Chloride 100 ml @ 50 mls/hr ONCE ONCE IVPB 11/13/20 09:30 11/13/20 11:29 11/13/20 09:08 Propofol 100 ml @ 0 mls/hr Q12H IV 11/11/20 20:11 11/13/20 20:10 11/12/20 18:00 Sodium Bicarbonate 50 ml/ Dextrose 1,050 ml @ 50 mls/hr Q21H IV 11/12/20 21:00 12/12/20 20:59 11/12/20 21:00 Assessment/Plan Assessment/Plan IMPRESSION: 1. COVID-19 pneumonia. 2. Diabetes mellitus. 3. Hypertension. 4. Hyperkalemia. 5. CKD. 6. Metabolic acidosis. 7. Respiratory Failure; Acute Lung Injury 9. Change in mental status; will dc sedation; continue vent; may need head CT DISCUSSION: Continue broad-spectrum antibiotics. Continue vent/AC mode Currently FiO2 60%; PEEP 5 Endo tracheal tube adjusted; pt holding volumes on vent now Blood sugar control, Continue Decadron. Off propofol Check labs and ABG AM CXR unchanged Jud Werner Omar Syed MD Nov 13, 2020 11:00
--- NOTE | 2020-11-13 12:00 | NUR ---
NURSE NOTES: Pt repositioned. PO care provided. Afebrile.
--- NOTE | 2020-11-13 12:12 | Surgery Progress Note ---
Surgery Progress Note Subjective Procedure Performed Right femoral central venous catheter insertion Additional Comments cxr stable no n/v acute leukocytosis electrolytes being replaced ill appearing Objective Last 24 Hour Vital Signs Date Time Temp Pulse Resp B/P (MAP) Pulse Ox O2 Delivery O2 Flow Rate FiO2 11/13/20 09:57 60 11/13/20 08:00 60 11/13/20 07:26 84 23 60 11/13/20 07:00 72 20 106/11 (42) 95 11/13/20 06:00 83 21 127/16 (53) 96 11/13/20 05:00 82 19 118/21 (53) 96 11/13/20 04:00 60 11/13/20 04:00 23 133/44 Mechanical Ventilator 60 11/13/20 04:00 105 11/13/20 04:00 98.4 100 23 133/44 (73) 94 11/13/20 04:00 Mechanical Ventilator 11/13/20 03:30 103 23 60 11/13/20 03:00 103 22 132/58 (82) 94 11/13/20 03:00 22 132/58 Mechanical Ventilator 60 11/13/20 02:00 22 145/49 Mechanical Ventilator 60 11/13/20 02:00 93 21 136/47 (76) 96 11/13/20 01:00 20 133/46 Mechanical Ventilator 60 11/13/20 01:00 78 20 122/45 (70) 97 11/13/20 00:00 Mechanical Ventilator 11/13/20 00:00 60 11/13/20 00:00 76 11/13/20 00:00 20 112/34 Mechanical Ventilator 60 11/13/20 00:00 98.3 71 20 129/44 (72) 98 11/12/20 23:30 66 18 60 11/12/20 23:00 78 19 129/40 (69) 97 11/12/20 23:00 19 129/40 Mechanical Ventilator 60 11/12/20 22:00 19 120/44 Endotracheal Tube 60 11/12/20 22:00 70 19 120/44 (69) 98 11/12/20 21:00 80 21 117/36 (63) 97 11/12/20 21:00 19 117/36 Mechanical Ventilator 60 11/12/20 20:00 Mechanical Ventilator 11/12/20 20:00 19 125/40 Mechanical Ventilator 60 11/12/20 20:00 73 12/22/20 20:00 98.0 73 19 125/40 (68) 96 11/12/20 19:30 80 19 60 11/12/20 19:00 75 20 117/36 (63) 99 11/12/20 19:00 20 117/36 Mechanical Ventilator 60 11/12/20 18:00 64 20 110/36 (60) 97 11/12/20 18:00 18 101/33 60 11/12/20 17:43 60 11/12/20 17:00 21 104/66 Mechanical Ventilator 70 11/12/20 17:00 70 21 104/66 (79) 94 11/12/20 16:38 70 11/12/20 16:30 71 19 124/43 (70) 99 11/12/20 16:15 80 11/12/20 16:00 80 11/12/20 16:00 Mechanical Ventilator 11/12/20 16:00 64 11/12/20 16:00 22 122/44 Mechanical Ventilator 80 11/12/20 16:00 97.3 67 22 122/44 (70) 100 11/12/20 15:00 62 20 116/44 (68) 100 11/12/20 15:00 20 116/44 Mechanical Ventilator 90 11/12/20 14:38 90 11/12/20 14:37 86 23 90 11/12/20 14:00 68 23 116/49 (71) 100 11/12/20 14:00 23 116/49 Mechanical Ventilator 100 11/12/20 13:00 26 116/46 Mechanical Ventilator 100 11/12/20 13:00 77 26 116/46 (69) 100 I&O Intake and Output 11/12/20 11/13/20 19:00 07:00 Intake Total 1317.052 ml 1029.039 ml Output Total 235 ml 348 ml Balance 1082.052 ml 681.039 ml Free Water 30 ml IV Total 1067.052 ml 629.039 ml Tube Feeding 220 ml 400 ml Output Urine Total 235 ml 348 ml Stool Total 0 ml # Bowel Movements 3 Dressing: saturated Cardiovascular: RSR Respiratory: decreased breath sounds Abdomen: soft, non-tender, non-distended, decreased bowel sounds Extremities: edema, no tenderness, no cyanosis Laboratory Tests Test 11/12/20 21:59 11/12/20 22:20 11/12/20 23:34 11/13/20 01:02 Venous Blood pH 7.246 Venous Blood Partial Pressure CO2 58.4 Venous Blood Partial Pressure O2 56.9 Venous Blood HCO3 24.8 Venous Blood Total Carbon Dioxide 58.4 Venous Blood Base Excess -3.2 Venous Blood Carboxyhemoglobin 0.3 % (0.5-1.5) L Methemoglobin 0.6 Sodium Level 144 MMOL/L (136-145) Potassium Level 3.2 MMOL/L (3.5-5.1) L Chloride Level 112 MMOL/L (98-107) H Carbon Dioxide Level 27 MMOL/L (21-32) Anion Gap 5 mmol/L (5-15) Blood Urea Nitrogen 99 mg/dL (7-18) H Creatinine 2.1 MG/DL (0.55-1.30) H Estimat Glomerular Filtration Rate 30.2 mL/min (>60) Glucose Level 468 MG/DL (74-106) #H Calcium Level 7.1 MG/DL (8.5-10.1) L POC Whole Blood Glucose 388 MG/DL (74-106) H 375 MG/DL (74-106) H Test 11/13/20 02:47 11/13/20 03:50 11/13/20 03:55 11/13/20 08:48 POC Whole Blood Glucose Pending Triglycerides Level 88 MG/DL (30-150) White Blood Count 16.6 K/UL (4.8-10.8) #H Red Blood Count 4.01 M/UL (4.70-6.10) L Hemoglobin 12.5 G/DL (14.2-18.0) L Hematocrit 36.7 % (42.0-52.0) L Mean Corpuscular Volume 91 FL (80-99) Mean Corpuscular Hemoglobin 31.2 PG (27.0-31.0) H Mean Corpuscular Hemoglobin Concent 34.1 G/DL (32.0-36.0) Red Cell Distribution Width 14.6 % (11.6-14.8) Platelet Count 191 K/UL (150-450) Mean Platelet Volume 8.1 FL (6.5-10.1) Neutrophils (%) (Auto) % (45.0-75.0) Lymphocytes (%) (Auto) % (20.0-45.0) Monocytes (%) (Auto) % (1.0-10.0) Eosinophils (%) (Auto) % (0.0-3.0) Basophils (%) (Auto) % (0.0-2.0) Differential Total Cells Counted 100 Neutrophils % (Manual) 97 % (45-75) H Lymphocytes % (Manual) 2 % (20-45) L Monocytes % (Manual) 1 % (1-10) Eosinophils % (Manual) 0 % (0-3) Basophils % (Manual) 0 % (0-2) Band Neutrophils 0 % (0-8) Platelet Estimate Adequate Platelet Morphology Normal Anisocytosis 1+ Sodium Level 146 MMOL/L (136-145) H Potassium Level 3.2 MMOL/L (3.5-5.1) L Chloride Level 111 MMOL/L (98-107) H Carbon Dioxide Level 24 MMOL/L (21-32) Anion Gap 11 mmol/L (5-15) Blood Urea Nitrogen 102 mg/dL (7-18) H Creatinine 2.0 MG/DL (0.55-1.30) H Estimat Glomerular Filtration Rate 32.0 mL/min (>60) Glucose Level 344 MG/DL (74-106) #H Calcium Level 7.5 MG/DL (8.5-10.1) L Arterial Blood pH 7.264 (7.350-7.450) Arterial Blood Partial Pressure CO2 61.8 mmHg (35.0-45.0) *H Arterial Blood Partial Pressure O2 71.9 mmHg (75.0-100.0) L Arterial Blood HCO3 27.4 mmol/L (22.0-26.0) H Arterial Blood Oxygen Saturation 92.2 % (95-100) L Arterial Blood Base Excess -0.7 (-2-2) Jonathan Test Positive Plan Problems: (1) ARDS (adult respiratory distress syndrome) Assessment & Plan: 84-year-old male who pressor insufficiency ARDS Covid on vent ET tube in place chest x-ray reviewed central line in place on sedation. Continue daily weaning trials. NG tube okay for diet tube feeds continue. Microbiology reviewed labs reviewed. Trend labs. IV fluids. Will follow with recommendations thank you for let me participate patient's care cxr stable on abx covid + cont abx cont f wean as tolerated DAILY ESTIMATED NEEDS: Needs based on Critcal care 82.4kg abw 22-28 kcals/kg 7626-1515 total kcals 1.2-2 g protein/kg 99-165 g total protein 20-25/ or per MD mL/kg 9448-0226 total fluid mLs NUTRITION DIAGNOSIS: Swallowing difficulty r/t respiratory status as evidenced by 84 y/o M adm w/ covid++, now orally intubated, NPO. ENTERAL NUTRITION RECOMMENDATIONS: VITAL 1.2 GOAL OF 65ml/hr x24 hrs to provide 1560ml, 1872 kcal, 117g pro, 1265ml free H2O - When hemodynamically stable, rec to start non oral feeds to meet est kcal and pro needs. - Start Vital 1.2 @35ml/hr for 6 hrs, advance as tolerated 10ml/hr q4-6 hrs to goal. - Flush per MD. HOB over 30 degrees ADDITIONAL RECOMMENDATIONS: 1) Maintain calibrated bed scale wts 2) Followed by end, monitor for hypoglycemia while NPO 3) Feed when hemodynamically stable, TF recs as above for critical care, carb control, high pro content to meet est needs 4) Re-evaluate TF w/ change in propofol rate-> current rate w/ TF's do NOT exceed est needs. (2) Hypoxemia (3) Renal failure (4) Elevated troponin (5) COVID-19 Assessment & Plan: ++ on abx tx per Tommie Teague Nov 13, 2020 12:12
--- NOTE | 2020-11-13 12:37 | Infectious Diseases Prog Note ---
Assessment/Plan Assessment/Plan antibiotics : zosyn, remdesivir A 1. COVID 19 pneumonia on 100 % Fi O2, saturation 100 % s/p remdesivir 2. respiratory failure 3. diabetes mellitus 4. hypertension 5. renal failure improving P 1. continue zosyn 2. continue solumedrol 3. continue isolation Subjective ROS Limited/Unobtainable: Yes Allergies: Coded Allergies: No Known Allergies (Unverified , 11/06/20) Objective Last 24 Hour Vital Signs Date Time Temp Pulse Resp B/P (MAP) Pulse Ox O2 Delivery O2 Flow Rate FiO2 11/13/20 09:57 60 11/13/20 08:00 60 11/13/20 07:26 84 23 60 11/13/20 07:00 72 20 106/11 (42) 95 11/13/20 06:00 83 21 127/16 (53) 96 11/13/20 05:00 82 19 118/21 (53) 96 11/13/20 04:00 60 11/13/20 04:00 23 133/44 Mechanical Ventilator 60 11/13/20 04:00 105 11/13/20 04:00 98.4 100 23 133/44 (73) 94 11/13/20 04:00 Mechanical Ventilator 11/13/20 03:30 103 23 60 11/13/20 03:00 103 22 132/58 (82) 94 11/13/20 03:00 22 132/58 Mechanical Ventilator 60 11/13/20 02:00 22 145/49 Mechanical Ventilator 60 11/13/20 02:00 93 21 136/47 (76) 96 11/13/20 01:00 20 133/46 Mechanical Ventilator 60 11/13/20 01:00 78 20 122/45 (70) 97 11/13/20 00:00 Mechanical Ventilator 11/13/20 00:00 60 11/13/20 00:00 76 11/13/20 00:00 20 112/34 Mechanical Ventilator 60 11/13/20 00:00 98.3 71 20 129/44 (72) 98 11/12/20 23:30 66 18 60 11/12/20 23:00 78 19 129/40 (69) 97 11/12/20 23:00 19 129/40 Mechanical Ventilator 60 11/12/20 22:00 19 120/44 Endotracheal Tube 60 11/12/20 22:00 70 19 120/44 (69) 98 11/12/20 21:00 80 21 117/36 (63) 97 11/12/20 21:00 19 117/36 Mechanical Ventilator 60 11/12/20 20:00 Mechanical Ventilator 11/12/20 20:00 19 125/40 Mechanical Ventilator 60 11/12/20 20:00 73 11/12/20 20:00 98.0 73 19 125/40 (68) 96 11/12/20 19:30 80 19 60 11/12/20 19:00 75 20 117/36 (63) 99 11/12/20 19:00 20 117/36 Mechanical Ventilator 60 11/12/20 18:00 64 20 110/36 (60) 97 11/12/20 18:00 18 101/33 60 11/12/20 17:43 60 11/12/20 17:00 21 104/66 Mechanical Ventilator 70 11/12/20 17:00 70 21 104/66 (79) 94 11/12/20 16:38 70 11/12/20 16:30 71 19 124/43 (70) 99 11/12/20 16:15 80 11/12/20 16:00 80 11/12/20 16:00 Mechanical Ventilator 11/12/20 16:00 64 11/12/20 16:00 22 122/44 Mechanical Ventilator 80 11/12/20 16:00 97.3 67 22 122/44 (70) 100 11/12/20 15:00 62 20 116/44 (68) 100 11/12/20 15:00 20 116/44 Mechanical Ventilator 90 11/12/20 14:38 90 11/12/20 14:37 86 23 90 11/12/20 14:00 68 23 116/49 (71) 100 11/12/20 14:00 23 116/49 Mechanical Ventilator 100 11/12/20 13:00 26 116/46 Mechanical Ventilator 100 11/12/20 13:00 77 26 116/46 (69) 100 Height (Feet): 6 Height (Inches): 1.00 Weight (Pounds): 190 HEENT: other - intubated Laboratory Tests Test 11/12/20 21:59 11/12/20 22:20 11/12/20 23:34 11/13/20 01:02 Venous Blood pH 7.246 Venous Blood Partial Pressure CO2 58.4 Venous Blood Partial Pressure O2 56.9 Venous Blood HCO3 24.8 Venous Blood Total Carbon Dioxide 58.4 Venous Blood Base Excess -3.2 Venous Blood Carboxyhemoglobin 0.3 % (0.5-1.5) L Methemoglobin 0.6 Sodium Level 144 MMOL/L (136-145) Potassium Level 3.2 MMOL/L (3.5-5.1) L Chloride Level 112 MMOL/L (98-107) H Carbon Dioxide Level 27 MMOL/L (21-32) Anion Gap 5 mmol/L (5-15) Blood Urea Nitrogen 99 mg/dL (7-18) H Creatinine 2.1 MG/DL (0.55-1.30) H Estimat Glomerular Filtration Rate 30.2 mL/min (>60) Glucose Level 468 MG/DL (74-106) #H Calcium Level 7.1 MG/DL (8.5-10.1) L POC Whole Blood Glucose 388 MG/DL (74-106) H 375 MG/DL (74-106) H Test 11/13/20 02:47 11/13/20 03:50 11/13/20 03:55 11/13/20 08:48 POC Whole Blood Glucose Pending Triglycerides Level 88 MG/DL (30-150) White Blood Count 16.6 K/UL (4.8-10.8) #H Red Blood Count 4.01 M/UL (4.70-6.10) L Hemoglobin 12.5 G/DL (14.2-18.0) L Hematocrit 36.7 % (42.0-52.0) L Mean Corpuscular Volume 91 FL (80-99) Mean Corpuscular Hemoglobin 31.2 PG (27.0-31.0) H Mean Corpuscular Hemoglobin Concent 34.1 G/DL (32.0-36.0) Red Cell Distribution Width 14.6 % (11.6-14.8) Platelet Count 191 K/UL (150-450) Mean Platelet Volume 8.1 FL (6.5-10.1) Neutrophils (%) (Auto) % (45.0-75.0) Lymphocytes (%) (Auto) % (20.0-45.0) Monocytes (%) (Auto) % (1.0-10.0) Eosinophils (%) (Auto) % (0.0-3.0) Basophils (%) (Auto) % (0.0-2.0) Differential Total Cells Counted 100 Neutrophils % (Manual) 97 % (45-75) H Lymphocytes % (Manual) 2 % (20-45) L Monocytes % (Manual) 1 % (1-10) Eosinophils % (Manual) 0 % (0-3) Basophils % (Manual) 0 % (0-2) Band Neutrophils 0 % (0-8) Platelet Estimate Adequate Platelet Morphology Normal Anisocytosis 1+ Sodium Level 146 MMOL/L (136-145) H Potassium Level 3.2 MMOL/L (3.5-5.1) L Chloride Level 111 MMOL/L (98-107) H Carbon Dioxide Level 24 MMOL/L (21-32) Anion Gap 11 mmol/L (5-15) Blood Urea Nitrogen 102 mg/dL (7-18) H Creatinine 2.0 MG/DL (0.55-1.30) H Estimat Glomerular Filtration Rate 32.0 mL/min (>60) Glucose Level 344 MG/DL (74-106) #H Calcium Level 7.5 MG/DL (8.5-10.1) L Arterial Blood pH 7.264 (7.350-7.450) Arterial Blood Partial Pressure CO2 61.8 mmHg (35.0-45.0) *H Arterial Blood Partial Pressure O2 71.9 mmHg (75.0-100.0) L Arterial Blood HCO3 27.4 mmol/L (22.0-26.0) H Arterial Blood Oxygen Saturation 92.2 % (95-100) L Arterial Blood Base Excess -0.7 (-2-2) Jonathan Test Positive Current Medications Medications (Trade) Dose Ordered Sig/Violet Route PRN Reason Start Time Stop Time Status Last Admin Dose Admin Acetaminophen (Tylenol) 650 mg Q4H PRN GT Temp >100.5 11/12/20 11:00 12/12/20 10:44 Chlorhexidine Gluconate (Patt-Hex 2%) 1 applic DAILY@1999 TOPIC 11/09/20 20:00 02/07/21 19:59 11/12/20 20:55 Dextrose (Dextrose 50%) 25 ml Q30M PRN IV Hypoglycemia 11/06/20 20:00 02/04/21 19:59 Dextrose (Dextrose 50%) 50 ml Q30M PRN IV Hypoglycemia 11/06/20 20:00 02/04/21 19:59 Enoxaparin Sodium (Lovenox) 40 mg Q24H SUBQ 11/07/20 21:00 02/05/21 20:59 11/12/20 20:59 Flumazenil (Romazicon) 0.2 mg NEEDED PRN IV Sedation reversal 11/06/20 20:00 Insulin Aspart (NovoLOG) EVERY 6 HOURS SUBQ 11/08/20 12:00 02/05/21 16:29 11/13/20 06:30 Insulin Detemir (Levemir) 14 units EVERY 12 HOURS SUBQ 11/13/20 09:00 02/05/21 20:59 11/13/20 09:09 Methylprednisolone Sodium Succinate (Solu-MEDROL) 40 mg Q12HR IVP 11/08/20 12:00 11/15/20 11:59 11/13/20 09:05 Naloxone HCl (Narcan) 0.4 mg NEEDED PRN IVP RR less than 6/min 11/06/20 20:00 02/04/21 19:59 Ondansetron HCl (Zofran) 4 mg Q6H PRN IVP Nausea & Vomiting 11/06/20 20:00 12/06/20 19:59 Pantoprazole (Protonix) 40 mg DAILY IVP 11/08/20 09:00 12/08/20 08:59 11/13/20 09:05 Piperacillin Sod/ Tazobactam Sod 3.375 gm/Sodium Chloride 110 ml @ 27.5 mls/hr EVERY 12 HOURS IVPB 11/08/20 13:00 11/17/20 23:59 11/13/20 09:05 Propofol 100 ml @ 0 mls/hr Q12H IV 11/11/20 20:11 11/13/20 20:10 11/12/20 18:00 Sodium Bicarbonate 50 ml/ Dextrose 1,050 ml @ 50 mls/hr Q21H IV 11/12/20 21:00 12/12/20 20:59 11/12/20 21:00 Gabby White MD Nov 13, 2020 12:37
--- NOTE | 2020-11-13 12:44 | NUR ---
NURSE NOTES: Pt seen by Dr Poole - made aware pts BG has been persistently over 200. No new orders received at this time - will continue to BG monitor trend.
--- NOTE | 2020-11-13 14:00 | NUR ---
NURSE NOTES: Pt repositioned. Seen by Dr Hong - made aware of low urine output.
--- NOTE | 2020-11-13 15:59 | NUR ---
CASE MANAGEMENT:REVIEW 11/13/20 SI: COVID POSITIVE ~ INTUBATED 98.6 59 21 100/19 95% ON VENT SUPPORT W/60% FIO2 NA+151 BUN+87 CR+1.6 IS: LEVEMIR SQ Q12 IVF NAHCO3@50/HR IV ZOSYN Q12 IV SOLUMEDROL Q12 IV PROTONIX QD LOVENOX SQ Q24 : ICU STATUS DCP: FROM HOME PLAN: COMPLETED REMDESIVIR
--- NOTE | 2020-11-13 16:00 | NUR ---
NURSE NOTES: Pt repositioned. PO care provided. Pt now arousable, opens eyes spontaneously and attempts to pull medical devices. 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 Will continue to monitor.
--- NOTE | 2020-11-13 16:44 | NUR ---
NURSE NOTES: FiO2 titrated up to 80 % at this time.
[2020-11-13] MEDS: Sodium Bicarbonate 50 ML in D5W 1000ml 1,000 ML IV SCH (16:59)
--- NOTE | 2020-11-13 17:28 | NUR ---
NURSE NOTES: Left message for Dr Gaspar with recent ABG results. Awaiting call back.
--- NOTE | 2020-11-13 18:00 | NUR ---
NURSE NOTES: Pt repositioned. No distress noted.
--- NOTE | 2020-11-13 18:19 | General Progress Note ---
Subjective Date patient seen: Nov 13, 2020 ROS Limited/Unobtainable: Yes Allergies: Coded Allergies: No Known Allergies (Unverified , 11/06/20) Subjective Patient titrated to 80% FiO2. On AC/VC. Vent settings reviewed. Abg reviewed. Patient's mental status worse, propofol stopped. ROS: unable to obtain due to ALOC Objective Last 24 Hour Vital Signs Date Time Temp Pulse Resp B/P (MAP) Pulse Ox O2 Delivery O2 Flow Rate FiO2 11/13/20 17:00 84 20 123/22 (55) 96 11/13/20 16:44 80 11/13/20 16:00 60 11/13/20 16:00 98.1 78 18 149/33 (71) 94 11/13/20 16:00 66 11/13/20 16:00 Mechanical Ventilator 11/13/20 15:00 74 19 131/11 (51) 94 11/13/20 14:00 71 23 132/33 (66) 93 11/13/20 13:00 76 20 107/24 (51) 97 11/13/20 12:00 98.6 60 21 100/19 (46) 95 11/13/20 12:00 Mechanical Ventilator 11/13/20 12:00 60 11/13/20 12:00 59 11/13/20 11:00 75 23 125/21 (55) 89 11/13/20 10:00 71 20 96/26 (49) 93 11/13/20 09:57 60 11/13/20 09:00 71 21 107/28 (54) 95 11/13/20 08:00 82 11/13/20 08:00 60 11/13/20 08:00 97.8 77 22 128/24 (58) 97 11/13/20 08:00 Mechanical Ventilator 11/13/20 07:26 84 23 60 11/13/20 07:00 72 20 106/11 (42) 95 11/13/20 06:00 83 21 127/16 (53) 96 11/13/20 05:00 82 19 118/21 (53) 96 11/13/20 04:00 60 11/13/20 04:00 23 133/44 Mechanical Ventilator 60 11/13/20 04:00 105 11/13/20 04:00 98.4 100 23 133/44 (73) 94 11/13/20 04:00 Mechanical Ventilator 12/23/20 03:30 103 23 60 11/13/20 03:00 103 22 132/58 (82) 94 11/13/20 03:00 22 132/58 Mechanical Ventilator 60 11/13/20 02:00 22 145/49 Mechanical Ventilator 60 11/13/20 02:00 93 21 136/47 (76) 96 11/13/20 01:00 20 133/46 Mechanical Ventilator 60 11/13/20 01:00 78 20 122/45 (70) 97 11/13/20 00:00 Mechanical Ventilator 11/13/20 00:00 60 11/13/20 00:00 76 11/13/20 00:00 20 112/34 Mechanical Ventilator 60 11/13/20 00:00 98.3 71 20 129/44 (72) 98 11/12/20 23:30 66 18 60 11/12/20 23:00 78 19 129/40 (69) 97 11/12/20 23:00 19 129/40 Mechanical Ventilator 60 11/12/20 22:00 19 120/44 Endotracheal Tube 60 11/12/20 22:00 70 19 120/44 (69) 98 11/12/20 21:00 80 21 117/36 (63) 97 11/12/20 21:00 19 117/36 Mechanical Ventilator 60 11/12/20 20:00 Mechanical Ventilator 11/12/20 20:00 19 125/40 Mechanical Ventilator 60 11/12/20 20:00 73 11/12/20 20:00 98.0 73 19 125/40 (68) 96 11/12/20 19:30 80 19 60 11/12/20 19:00 75 20 117/36 (63) 99 11/12/20 19:00 20 117/36 Mechanical Ventilator 60 Intake and Output 11/12/20 11/13/20 19:00 07:00 Intake Total 1317.052 ml 1029.039 ml Output Total 235 ml 348 ml Balance 1082.052 ml 681.039 ml Free Water 30 ml IV Total 1067.052 ml 629.039 ml Tube Feeding 220 ml 400 ml Output Urine Total 235 ml 348 ml Stool Total 0 ml # Bowel Movements 3 Laboratory Tests 11/12/20 21:59: Venous Blood pH 7.246, Venous Blood Partial Pressure CO2 58.4, Venous Blood Partial Pressure O2 56.9, Venous Blood HCO3 24.8, Venous Blood Total Carbon Dioxide 58.4, Venous Blood Base Excess -3.2, Venous Blood Carboxyhemoglobin 0.3L , Methemoglobin 0.6 11/12/20 22:20: Sodium Level 144, Potassium Level 3.2L, Chloride Level 112H, Carbon Dioxide Level 27, Anion Gap 5, Blood Urea Nitrogen 99H, Creatinine 2.1H, Estimat G lomerular Filtration Rate 30.2, Glucose Level 468#H, Calcium Level 7.1L 11/12/20 23:34: POC Whole Blood Glucose 388H 11/13/20 01:02: POC Whole Blood Glucose 375H 11/13/20 02:47: POC Whole Blood Glucose [Pending] 11/13/20 03:50: Triglycerides Level 88 11/13/20 03:55: White Blood Count 16.6#H, Red Blood Count 4.01L, Hemoglobin 12.5L, Hematocrit 36.7L, Mean Corpuscular Volume 91, Mean Corpuscular Hemoglobin 31.2H, Mean Corpuscular Hemoglobin Concent 34.1, Red Cell Distribution Width 14.6, Platelet Count 191, Mean Platelet Volume 8.1, Neutrophils (%) (Auto) , Lymphocytes (%) (Auto) , Monocytes (%) (Auto) , Eosinophils (%) (Auto) , Basophils (%) (Auto) , Differential Total Cells Counted 100, Neutrophils % (Manual) 97H, Lymphocytes % (Manual) 2L, Monocytes % (Manual) 1, Eosinophils % (Manual) 0, Basophils % (Manual) 0, Band Neutrophils 0, Platelet Estimate Adequate, Platelet Morphology Normal, Anisocytosis 1+, Sodium Level 146H, Potassium Level 3.2L, Chloride Level 111H, Carbon Dioxide Level 24, Anion Gap 11, Blood Urea Nitrogen 102H, Creatinine 2.0H, Estimat Glomerular Filtration Rate 32.0, Glucose Level 344#H, Calcium Level 7.5L 11/13/20 08:48: Arterial Blood pH 7.264L, Arterial Blood Partial Pressure CO2 61.8*H, Arterial Blood Partial Pressure O2 71.9L, Arterial Blood HCO3 27.4H, Arterial Blood Oxygen Saturation 92.2L, Arterial Blood Base Excess -0.7, Jonathan Test Positive 11/13/20 16:30: Arterial Blood pH 7.350, Arterial Blood Partial Pressure CO2 46.5H, Arterial Blood Partial Pressure O2 59.6L, Arterial Blood HCO3 25.1, Arterial Blood Oxygen Saturation 89.2*L, Arterial Blood Base Excess -0.8, Jonathan Test Positive Height (Feet): 6 Height (Inches): 1.00 Weight (Pounds): 190 Objective Exam limited due to COVID status and to conserve PPE. Per discussion with RN. General: Male A&o x 0. intubated HEENT: Normocephalic cephalic atraumatic, nares patent and no symmetrical, no tonsillar exudates, mucous membranes moist CV: Regular rate regular rhythm, no murmurs, rubs, or gallops Pulm: Lungs coarse breath sounds bilaterally. No wheezes, rhonchi, or rales GI: Soft, nontender, nondistended, bowel sounds present Neuro: Moving all extremities Ext: No lower extremity edema bilaterally Skin: no rashes lesions or ulcers Msk: Joints symmetrical in upper extremity and lower extremity bilaterally, no joint swelling. Lymph: No lymphadenopathy in upper extremity and lower extremity Assessment/Plan Status: stable Assessment/Plan: 84 yo M w DM2, HTN, ? CKD admitted for Covid19 PNA with SAMEER # acute hypoxemia Resp failure 2/ covid PNA - lower FiO2 today > s/p intubation on 11/07/20. EtTube out on 11/11 but re-inserted # Covid PNA # Lactic acid elevation # elevated D dimer # Trop elevated - Patient full code. See Advanced care plan note. Will continue discussions as patient progresses - s/p IVF bolus in ED, will keep lung dry as much as possible - s/p decadron 6mg iv daily - solumedrol Q12hr (11/08 - ) - Remdesivir per ID (11/09 - ) - azithromycin (11/08 - ) - Vancomycin (11/09 - ) - Zosyn (11/09 - ) - Abx per ID - pulm consult: Chasity - ID consult: Steven - Aneesh consult - trend ABG: reviewed - Continue Ac/VC - propofol for sedation - monitor triglycerides - Wean vent as tolerated - s/p NG tube 11/07 for meds. start tube feeding - IV fluids per nephro #S. hominis bacteremia, Contaminant? Defer to ID #Bilateral superimposed pneumonia - ID consulted: Dr. Harris - Follow surveilance cultures - Vanc per pharm (11/08 - ) - Zosyn (11/08 - ) # Malnutrition #HTN, current normotensive - Tube feedings - Appreciate surgery recs - D/w RN # DM2 uncontrolled #hyperglycemia - detemir 10 units BID - continue SSI - accuchecks - hypoglycemia protocol # SAMEER vs. SAMEER on CKD, likely prerenal # Dehydration - renal consult - Gentle IV fluids - i/o monitor, montilla cath FENPPX DVTPPX: lovenox GI PPX: protonix Fluids: per nephro Diet: NPO, tube feedings PT/OT: deferred Code status: Full code Dispo: SNF eventually. Guarded prognosis. Family aware Reason for Continued Hospitalization: Hypoxia Time of my involvement, the patient's condition was critical with high potential for and/or physiologic deterioration secondary to acute hypoxic respiratory failure as delineated in the note above. On the above date of service, I spent a total of 35 minutes in the ICU evaluating, managing, and providing critical care services to this patient, including time spent documenting these activities, counseling patient/family, and coordinating care. Critical care services performed include: -Telemetry review -Hemodynamic measurement interpretation -Laboratory data review and interpretation -Vent setting reviewed, management -Discussion of care plans with patient, family, and/or surrogate decision makers -Discussion of patient's care with medical team, surgical team, and/or consulting service -Decision to obtain further radiologic evaluation, after consideration of the risk/benefit ratio -Review of most recent microbiology results assessment and modification of antimicrobial coverage -Discussion of patient's CODE STATUS and further advancement towards the ultimate goals of care. Plan outlined above discussed with patient/family, [employer], ICU team, and involved physician/consultants. Time of note not necessarily time patient was seen Rudy Poole M.D. Nov 13, 2020 18:19
--- NOTE | 2020-11-13 19:00 | NUR ---
NURSE NOTES: Dr Poole at bedside assessing pt again. Made aware pt's BG trend and that pt is running NaHCO3 gtt with D5W - states he will revaluate need for gtt tomorrow. Also made aware pt had gastric residuals of 100 and that tube feeding held at this time - will re-advance as tolerated. Recent ABGs also reviewed with Dr Poole. No new orders received at this time.
--- NOTE | 2020-11-13 19:30 | NUR ---
NURSE NOTES: Pt received from LYNDA Hutchinson. Pt grimaces to light pain stimuli; however, does not open eyes or follow commands. Afebrile. SR/SB on cardia monitor. Non-pitting edema noted to hands. Cap refill less than 2 sec. Pt is orally intubated with a 7.5 ETT/25 cm at the lip with the vent setting: AC 16 TV 500 FiO2 60 % Peep 5. Lung rueda noted diminished upon auscultation. OGT noted Vital 1.2 at 40mL/hr HELD 2/2 high residual. Goal will be 65mL/hr. Abdomen is round and soft w/ active bowel sounds to all quadrants. Douglas noted draining light ishmael, clear urine. Pt has a R Fem TLC with dry and intact dressing running D5W w/ NaHCO3 at 50 mL/hr. Skin is intact. Safety measures observed and no acute distress noted. Will continue to monitor. Addendum: 11/14/20 at 0053 by Padmini An RN FiO2 80%
--- NOTE | 2020-11-13 19:32 | NUR ---
NURSE HAND-OFF REPORT: Latest Vital Signs: Temperature 98.1 , Pulse 95 , B/P 145 /24 , Respiratory Rate 20 , O2 SAT 94 , Mechanical Ventilator, FiO2 80 % . Vital Sign Comment: hemodynamically stable EKG Rhythm: Sinus Rhythm Rhythm change?: N MD Notified?: n/a MD Response: n/a Latest Blackwell Fall Score: 50 Fall Risk: High Risk Safety Measures: Call light Within Reach, Bed Alarm Zone 1, Side Rails Side Rails x3, Bed position Low and Locked. Fall Precautions: Yellow Socks Yellow Gown Door Sign Patient Fall Education Report given to LYNDA Washington.
[2020-11-13] MEDS: Dyna-Hex 2% Top Sol 2oz TOPIC SCH (20:00)
--- NOTE | 2020-11-13 20:05 | NUR ---
NURSE NOTES: Family member called. Update given and answered all the questions and concerns.
--- NOTE | 2020-11-13 20:48 | Nephrology Progress Note ---
Assessment/Plan Plan #SAMEER on CKD- likely pre-renal azotemia in the setting of sepsis #hypnatremia # acute hypoxemia Resp failure 2/2 covid PNA requiring BIPAP # Covid PNA # Lactic acid elevation # Malnutrition #HTN, current normotensive # elevated D dimer # Trop elevated # DM2 uncontrolled - continue with bicarb drip - intubated - monitor volume status - monitor ABG - monitor BMP, mag and phos daily - strict I&Os - daily weights - echo - defer renal US - antibiotic per ID time spent 65min Subjective ROS Limited/Unobtainable: Yes Subjective intubated Cr fluctuating sodium remains elevated started on bicarb drip Objective Objective Last 24 Hour Vital Signs Date Time Temp Pulse Resp B/P (MAP) Pulse Ox O2 Delivery O2 Flow Rate FiO2 11/13/20 19:06 95 20 60 11/13/20 19:00 91 20 145/24 (64) 94 11/13/20 18:00 97 20 141/29 (66) 96 11/13/20 17:00 84 20 123/22 (55) 96 11/13/20 16:44 80 11/13/20 16:00 60 11/13/20 16:00 98.1 78 18 149/33 (71) 94 11/13/20 16:00 66 11/13/20 16:00 Mechanical Ventilator 11/13/20 15:36 90 20 60 11/13/20 15:00 74 19 131/11 (51) 94 11/13/20 14:00 71 23 132/33 (66) 93 11/13/20 13:00 76 20 107/24 (51) 97 11/13/20 12:00 98.6 60 21 100/19 (46) 95 11/13/20 12:00 Mechanical Ventilator 11/13/20 12:00 60 11/13/20 12:00 59 11/13/20 11:17 61 22 60 11/13/20 11:00 75 23 125/21 (55) 89 11/13/20 10:00 71 20 96/26 (49) 93 11/13/20 09:57 60 11/13/20 09:00 71 21 107/28 (54) 95 11/13/20 08:00 82 11/13/20 08:00 60 11/13/20 08:00 97.8 77 22 128/24 (58) 97 11/13/20 08:00 Mechanical Ventilator 11/13/20 07:26 84 23 60 11/13/20 07:00 72 20 106/11 (42) 95 11/13/20 06:00 83 21 127/16 (53) 96 11/13/20 05:00 82 19 118/21 (53) 96 11/13/20 04:00 60 11/13/20 04:00 23 133/44 Mechanical Ventilator 60 11/13/20 04:00 105 11/13/20 04:00 98.4 100 23 133/44 (73) 94 11/13/20 04:00 Mechanical Ventilator 11/13/20 03:30 103 23 60 11/13/20 03:00 103 22 132/58 (82) 94 11/13/20 03:00 22 132/58 Mechanical Ventilator 60 11/13/20 02:00 22 145/49 Mechanical Ventilator 60 11/13/20 02:00 93 21 136/47 (76) 96 11/13/20 01:00 20 133/46 Mechanical Ventilator 60 11/13/20 01:00 78 20 122/45 (70) 97 11/13/20 00:00 Mechanical Ventilator 11/13/20 00:00 60 11/13/20 00:00 76 11/13/20 00:00 20 112/34 Mechanical Ventilator 60 11/13/20 00:00 98.3 71 20 129/44 (72) 98 11/12/20 23:30 66 18 60 11/12/20 23:00 78 19 129/40 (69) 97 11/12/20 23:00 19 129/40 Mechanical Ventilator 60 11/12/20 22:00 19 120/44 Endotracheal Tube 60 11/12/20 22:00 70 19 120/44 (69) 98 11/12/20 21:00 80 21 117/36 (63) 97 11/12/20 21:00 19 117/36 Mechanical Ventilator 60 Intake and Output 11/12/20 11/13/20 19:00 07:00 Intake Total 1317.052 ml 1029.039 ml Output Total 235 ml 348 ml Balance 1082.052 ml 681.039 ml Free Water 30 ml IV Total 1067.052 ml 629.039 ml Tube Feeding 220 ml 400 ml Output Urine Total 235 ml 348 ml Stool Total 0 ml # Bowel Movements 3 Laboratory Tests 11/12/20 21:59: Venous Blood pH 7.246, Venous Blood Partial Pressure CO2 58.4, Venous Blood Partial Pressure O2 56.9, Venous Blood HCO3 24.8, Venous Blood Total Carbon Dioxide 58.4, Venous Blood Base Excess -3.2, Venous Blood Carboxyhemoglobin 0.3L , Methemoglobin 0.6 11/12/20 22:20: Sodium Level 144, Potassium Level 3.2L, Chloride Level 112H, Carbon Dioxide Level 27, Anion Gap 5, Blood Urea Nitrogen 99H, Creatinine 2.1H, Estimat Glomerular Filtration Rate 30.2, Glucose Level 468#H, Calcium Level 7.1L 11/12/20 23:34: POC Whole Blood Glucose 388H 11/13/20 01:02: POC Whole Blood Glucose 375H 11/13/20 02:47: POC Whole Blood Glucose [Pending] 11/13/20 03:50: Triglycerides Level 88 11/13/20 03:55: White Blood Count 16.6#H, Red Blood Count 4.01L, Hemoglobin 12.5L, Hematocrit 36.7L, Mean Corpuscular Volume 91, Mean Corpuscular Hemoglobin 31.2H, Mean Corpuscular Hemoglobin Concent 34.1, Red Cell Distribution Width 14.6, Platelet Count 191, Mean Platelet Volume 8.1, Neutrophils (%) (Auto) , Lymphocytes (%) (Auto) , Monocytes (%) (Auto) , Eosinophils (%) (Auto) , Basophils (%) (Auto) , Differential Total Cells Counted 100, Neutrophils % (Manual) 97H, Lymphocytes % (Manual) 2L, Monocytes % (Manual) 1, Eosinophils % (Manual) 0, Basophils % (Manual) 0, Band Neutrophils 0, Platelet Estimate Adequate, Platelet Morphology Normal, Anisocytosis 1+, Sodium Level 146H, Potassium Level 3.2L, Chloride Level 111H, Carbon Dioxide Level 24, Anion Gap 11, Blood Urea Nitrogen 102H, Creatinine 2.0H, Estimat Glomerular Filtration Rate 32.0, Glucose Level 344#H, Calcium Level 7.5L 11/13/20 08:48: Arterial Blood pH 7.264L, Arterial Blood Partial Pressure CO2 61.8*H, Arterial Blood Partial Pressure O2 71.9L, Arterial Blood HCO3 27.4H, Arterial Blood Oxygen Saturation 92.2L, Arterial Blood Base Excess -0.7, Jonathan Test Positive 11/13/20 16:30: Arterial Blood pH 7.350, Arterial Blood Partial Pressure CO2 46.5H, Arterial Blood Partial Pressure O2 59.6L, Arterial Blood HCO3 25.1, Arterial Blood Oxygen Saturation 89.2*L, Arterial Blood Base Excess -0.8, Jonathan Test Positive Height (Feet): 6 Height (Inches): 1.00 Weight (Pounds): 190 Kulwant Hong M.D. Nov 13, 2020 20:48
--- NOTE | 2020-11-13 21:00 | NUR ---
NURSE NOTES: PM meds given. Turned and repositioned. Oral care given.
[2020-11-13] MEDS: Enoxaparin 40mg Inj SUBQ SCH (21:01)
[2020-11-14] VITALS (26 sets, daily range): BP systolic 103–178; BP diastolic 24–65
--- NOTE | 2020-11-14 | NUR ---
NURSE NOTES: Pt remains grimaces to light pain stimuli; however, does not open eyes or follow commands. Remains afebrile. SR/SB on cardia monitor. Non-pitting edema noted to hands. Cap refill less than 2 sec. Pt is orally intubated with a 7.5 ETT/25 cm at the lip with the vent setting: AC 16 TV 500 FiO2 changed to 100 % Peep 5. Lung rueda noted diminished upon auscultation. OGT noted Vital 1.2 at 40mL/hr HELD 2/2 high residual (60mL). Goal will be 65mL/hr. Abdomen is round and soft w/ active bowel sounds to all quadrants. Douglas noted draining light ishmael, clear urine. Pt has a R Fem TLC with dry and intact dressing running D5W w/ NaHCO3 at 50 mL/hr. Skin is intact. Safety measures observed and no acute distress noted. Will continue to monitor.
[2020-11-14] MEDS: NovoLOG Insulin Flexpen SUBQ SCH ×4 (05:59→23:37)
[2020-11-14 06:06] LABS: POTASSIUM 3.9 MMOL/L (3.5-5.1)
[2020-11-14 07:03] LABS: HEMATOCRIT 35.5 % (42.0-52.0); HEMOGLOBIN 11.4 G/DL (14.2-18.0); MEAN CORPUSCULAR VOLUME 97 FL (80-99); PLATELET COUNT 157 K/UL (150-450); RED BLOOD COUNT 3.64 M/UL (4.70-6.10); RED CELL DISTRIBUTION WIDTH 14.1 % (11.6-14.8); WHITE BLOOD COUNT 12.7 K/UL (4.8-10.8)
[2020-11-14 07:55] LABS: CALCIUM 7.2 MG/DL (8.5-10.1)
--- NOTE | 2020-11-14 08:00 | NUR ---
NURSE NOTES: INFORMED MD OF HIGH RESIDUALS. PT RESIDUAL PINK COLOR AND BROWN. RECOMMEND GI CONSULT AND REGLAN. WILL PLACE CONSULT FOR MD. MAURO. NO BM AT THIS TIME.
--- NOTE | 2020-11-14 08:29 | Nephrology Progress Note ---
Assessment/Plan Plan #SAMEER on CKD- likely pre-renal azotemia in the setting of sepsis #hypnatremia # acute hypoxemia Resp failure 2/2 covid PNA requiring BIPAP # Covid PNA # Lactic acid elevation # Malnutrition #HTN, current normotensive # elevated D dimer # Trop elevated # DM2 uncontrolled - add free water flushes 200cc q6hr - on bicarb drip - intubated - monitor volume status - monitor ABG - monitor BMP, mag and phos daily - strict I&Os - daily weights - echo - defer renal US - antibiotic per ID time spent 65min Subjective ROS Limited/Unobtainable: Yes Subjective intubated Cr fluctuating sodium remains elevated will add free water flushes started on bicarb drip Objective Objective Last 24 Hour Vital Signs Date Time Temp Pulse Resp B/P (MAP) Pulse Ox O2 Delivery O2 Flow Rate FiO2 11/14/20 07:00 60 22 125/34 (64) 96 11/14/20 06:00 65 22 117/27 (57) 96 11/14/20 05:00 78 20 135/35 (68) 96 11/14/20 04:00 63 11/14/20 04:00 100 11/14/20 04:00 81 20 148/34 (72) 89 11/14/20 04:00 Mechanical Ventilator 11/14/20 03:00 79 21 145/29 (67) 97 11/14/20 02:40 81 20 100 11/14/20 02:00 78 21 140/35 (70) 97 11/14/20 01:00 75 21 145/30 (68) 95 11/14/20 00:00 77 22 149/37 (74) 95 11/14/20 00:00 100 11/14/20 00:00 Mechanical Ventilator 11/13/20 23:00 77 22 144/34 (70) 94 11/13/20 22:30 77 21 100 11/13/20 22:00 99 22 138/21 (60) 92 11/13/20 21:00 97 21 143/18 (59) 95 11/13/20 20:00 Mechanical Ventilator 11/13/20 20:00 92 20 146/32 (70) 94 11/13/20 20:00 92 11/13/20 19:06 95 20 60 11/13/20 19:00 91 20 145/24 (64) 94 11/13/20 18:00 97 20 141/29 (66) 96 11/13/20 17:00 84 20 123/22 (55) 96 11/13/20 16:44 80 11/13/20 16:00 60 11/13/20 16:00 98.1 78 18 149/33 (71) 94 11/13/20 16:00 66 11/13/20 16:00 Mechanical Ventilator 11/13/20 15:36 90 20 60 11/13/20 15:00 74 19 131/11 (51) 94 11/13/20 14:00 71 23 132/33 (66) 93 11/13/20 13:00 76 20 107/24 (51) 97 11/13/20 12:00 98.6 60 21 100/19 (46) 95 11/13/20 12:00 Mechanical Ventilator 11/13/20 12:00 60 11/13/20 12:00 59 11/13/20 11:17 61 22 60 11/13/20 11:00 75 23 125/21 (55) 89 11/13/20 10:00 71 20 96/26 (49) 93 11/13/20 09:57 60 11/13/20 09:00 71 21 107/28 (54) 95 Intake and Output 11/13/20 11/14/20 19:00 07:00 Intake Total 1148.0 ml 600 ml Output Total 300 ml 300 ml Balance 848.0 ml 300 ml Free Water 20 ml IV Total 808.0 ml 600 ml Tube Feeding 320 ml 0 ml Output Urine Total 300 ml 300 ml Laboratory Tests 11/13/20 08:48: Arterial Blood pH 7.264L, Arterial Blood Partial Pressure CO2 61.8*H, Arterial Blood Partial Pressure O2 71.9L, Arterial Blood HCO3 27.4H, Arterial Blood Oxygen Saturation 92.2L, Arterial Blood Base Excess -0.7, Jonathan Test Positive 11/13/20 16:30: Arterial Blood pH 7.350, Arterial Blood Partial Pressure CO2 46.5H, Arterial Blood Partial Pressure O2 59.6L, Arterial Blood HCO3 25.1, Arterial Blood Oxygen Saturation 89.2*L, Arterial Blood Base Excess -0.8, Jonathan Test Positive 11/14/20 04:20: White Blood Count 12.7H, Red Blood Count 3.64L, Hemoglobin 11.4L, Hematocrit 35.5L, Mean Corpuscular Volume 97, Mean Corpuscular Hemoglobin 31.3H, Mean Corpuscular Hemoglobin Concent 32.1, Red Cell Distribution Width 14.1, Platelet Count 157, Mean Platelet Volume 7.6, Neutrophils (%) (Auto) , Lymphocytes (%) (Auto) , Monocytes (%) (Auto) , Eosinophils (%) (Auto) , Basophils (%) (Auto) , Differential Total Cells Counted 100, Neutrophils % (Manual) 95H, Lymphocytes % (Manual) 3L, Monocytes % (Manual) 2, Eosinophils % (Manual) 0, Basophils % (Manual) 0, Band Neutrophils 0, Platelet Estimate Adequate, Platelet Morphology Normal, Hypochromasia 1+, Anisocytosis 1+, Microcytosis Occasional, Macrocytosis 1+, Sodium Level 147H, Potassium Level 3.9, Chloride Level 113H, Carbon Dioxide Level 27, Anion Gap 7, Blood Urea Nitrogen 118H, Creatinine 2.0H, Estimat Glomerular Filtration Rate 32.0, Glucose Level 304H, Calcium Level 7.2L Height (Feet): 6 Height (Inches): 1.00 Weight (Pounds): 190 Kulwant Hong M.D. Nov 14, 2020 08:29
--- NOTE | 2020-11-14 09:08 | NUR ---
RD ASSESSMENT & RECOMMENDATIONS SEE CARE ACTIVITY FOR COMPLETE ASSESSMENT DAILY ESTIMATED NEEDS: Needs based on Critcal care 82.4kg abw 22-28 kcals/kg 2166-1290 total kcals 1.2-2 g protein/kg 99-165 g total protein 20-25/ or per MD mL/kg 0923-8946 total fluid mLs NUTRITION DIAGNOSIS: Swallowing difficulty r/t respiratory status as evidenced by 84 y/o M adm w/ covid + PNA, now orally intubated, w/ OGT feeds CURRENT TF:Vital AF 1.2 @ goal of 65ml/hr x 24 hrs- held at this time ENTERAL NUTRITION RECOMMENDATIONS: VITAL AF 1.2 (carb controlled and critical care) @ 55ml/hr x 24 hrs to provide 1320m, 1584kcal, 99g prot, 1070ml free water * With hyperglycemia (BGs 200'-300's), lower goal rate to 55ml/hr x 24 hrs -> will provide 87% est kcal and 100% est prot needs W/ improved BG control, rec goal rate of 65ml/hr x 24 hrs to provide 100% est needs of 1560ml, 1872 kcal, 117g pro, 1265ml free H2O * Flush per MD. HOB over 30 degrees ADDITIONAL RECOMMENDATIONS: 1) Maintain calibrated bed scale wts 2) Monitor for hyperglycemia: elev BGs 200's, 300's, pt on solumedrol -> Rec endo consult, consider increase insulin regimen 3) Consider prokinetics w/ continued TF residuals 4) Monitor hydration status: Na, BUN, creat elevated, increase H2o flushes . .
--- NOTE | 2020-11-14 09:25 | Diagnostic Imaging Report ---
Indication: Shortness of breath Technique: One view of the chest Comparison: 11/11/2020 Findings: Stable satisfactory position of endotracheal and orogastric tubes. Bilateral mostly interstitial infiltrates are unchanged. Impression: Unchanged, over one day, findings as above.
[2020-11-14] MEDS: Solu-MEDROL 40mg Inj IVP SCH ×2 (09:38→20:36)
[2020-11-14] MEDS: Pantoprazole Inj IVP SCH (09:39)
[2020-11-14] MEDS: Levemir Flexpen SUBQ SCH ×2 (09:40→20:35)
--- NOTE | 2020-11-14 10:10 | NUR ---
NURSE NOTES: MD MAURO HERE TO SEE PT. WAS INFORMED OF RESIDUAL LEVELS. AND REPORT OF BROWN GT RESIDUALS. ORDER PLACED FOR OCCULT STOOL, REGLAN, COLACE.
--- NOTE | 2020-11-14 10:12 | NUR ---
RADIOLOGY DEPT., CHEST X-RAY DONE.-P.DYE
--- NOTE | 2020-11-14 12:21 | Surgery Progress Note ---
Surgery Progress Note Subjective Procedure Performed Right femoral central venous catheter insertion Additional Comments wbc 12 on vent support grimace with manipulation no n/v Objective Last 24 Hour Vital Signs Date Time Temp Pulse Resp B/P (MAP) Pulse Ox O2 Delivery O2 Flow Rate FiO2 11/14/20 08:00 65 11/14/20 07:00 60 22 125/34 (64) 96 11/14/20 06:00 65 22 117/27 (57) 96 11/14/20 05:00 78 20 135/35 (68) 96 11/14/20 04:00 63 11/14/20 04:00 100 11/14/20 04:00 81 20 148/34 (72) 89 11/14/20 04:00 Mechanical Ventilator 11/14/20 03:00 79 21 145/29 (67) 97 11/14/20 02:40 81 20 100 11/14/20 02:00 78 21 140/35 (70) 97 11/14/20 01:00 75 21 145/30 (68) 95 11/14/20 00:00 77 22 149/37 (74) 95 11/14/20 00:00 100 11/14/20 00:00 Mechanical Ventilator 11/13/20 23:00 77 22 144/34 (70) 94 11/13/20 22:30 77 21 100 11/13/20 22:00 99 22 138/21 (60) 92 11/13/20 21:00 97 21 143/18 (59) 95 11/13/20 20:00 Mechanical Ventilator 11/13/20 20:00 92 20 146/32 (70) 94 11/13/20 20:00 92 11/13/20 19:06 95 20 60 11/13/20 19:00 91 20 145/24 (64) 94 11/13/20 18:00 97 20 141/29 (66) 96 11/13/20 17:00 84 20 123/22 (55) 96 11/13/20 16:44 80 11/13/20 16:00 60 11/13/20 16:00 98.1 78 18 149/33 (71) 94 11/13/20 16:00 66 11/13/20 16:00 Mechanical Ventilator 11/13/20 15:36 90 20 60 11/13/20 15:00 74 19 131/11 (51) 94 11/13/20 14:00 71 23 132/33 (66) 93 11/13/20 13:00 76 20 107/24 (51) 97 I&O Intake and Output 11/13/20 11/14/20 19:00 07:00 Intake Total 1148.0 ml 600 ml Output Total 300 ml 300 ml Balance 848.0 ml 300 ml Free Water 20 ml IV Total 808.0 ml 600 ml Tube Feeding 320 ml 0 ml Output Urine Total 300 ml 300 ml Dressing: saturated Cardiovascular: RSR Respiratory: decreased breath sounds Abdomen: soft, non-tender, present bowel sounds Extremities: edema, no tenderness, no cyanosis Laboratory Tests Test 11/13/20 16:30 11/14/20 04:20 11/14/20 08:47 Arterial Blood pH 7.350 (7.350-7.450) 7.369 (7.350-7.450) Arterial Blood Partial Pressure CO2 46.5 mmHg (35.0-45.0) H 49.3 mmHg (35.0-45.0) H Arterial Blood Partial Pressure O2 59.6 mmHg (75.0-100.0) L 107.1 mmHg (75.0-100.0) H Arterial Blood HCO3 25.1 mmol/L (22.0-26.0) 27.8 mmol/L (22.0-26.0) H Arterial Blood Oxygen Saturation 89.2 % (95-100) *L 97.3 % (95-100) Arterial Blood Base Excess -0.8 (-2-2) 1.9 (-2-2) Jonathan Test Positive Positive White Blood Count 12.7 K/UL (4.8-10.8) H Red Blood Count 3.64 M/UL (4.70-6.10) L Hemoglobin 11.4 G/DL (14.2-18.0) L Hematocrit 35.5 % (42.0-52.0) L Mean Corpuscular Volume 97 FL (80-99) Mean Corpuscular Hemoglobin 31.3 PG (27.0-31.0) H Mean Corpuscular Hemoglobin Concent 32.1 G/DL (32.0-36.0) Red Cell Distribution Width 14.1 % (11.6-14.8) Platelet Count 157 K/UL (150-450) Mean Platelet Volume 7.6 FL (6.5-10.1) Neutrophils (%) (Auto) % (45.0-75.0) Lymphocytes (%) (Auto) % (20.0-45.0) Monocytes (%) (Auto) % (1.0-10.0) Eosinophils (%) (Auto) % (0.0-3.0) Basophils (%) (Auto) % (0.0-2.0) Differential Total Cells Counted 100 Neutrophils % (Manual) 95 % (45-75) H Lymphocytes % (Manual) 3 % (20-45) L Monocytes % (Manual) 2 % (1-10) Eosinophils % (Manual) 0 % (0-3) Basophils % (Manual) 0 % (0-2) Band Neutrophils 0 % (0-8) Platelet Estimate Adequate Platelet Morphology Normal Hypochromasia 1+ Anisocytosis 1+ Microcytosis Occasional Macrocytosis 1+ Sodium Level 147 MMOL/L (136-145) H Potassium Level 3.9 MMOL/L (3.5-5.1) Chloride Level 113 MMOL/L (98-107) H Carbon Dioxide Level 27 MMOL/L (21-32) Anion Gap 7 mmol/L (5-15) Blood Urea Nitrogen 118 mg/dL (7-18) H Creatinine 2.0 MG/DL (0.55-1.30) H Estimat Glomerular Filtration Rate 32.0 mL/min (>60) Glucose Level 304 MG/DL (74-106) H Calcium Level 7.2 MG/DL (8.5-10.1) L Plan Problems: (1) ARDS (adult respiratory distress syndrome) Assessment & Plan: 84-year-old male who pressor insufficiency ARDS Covid on vent ET tube in place chest x-ray reviewed central line in place on sedation. Continue daily weaning trials. NG tube okay for diet tube feeds continue. Microbiology reviewed labs reviewed. Trend labs. IV fluids. Will follow with recommendations thank you for let me participate patient's care cxr stable on abx covid + cont abx cont f wean as tolerated DAILY ESTIMATED NEEDS: Needs based on Critcal care 82.4kg abw 22-28 kcals/kg 9264-6890 total kcals 1.2-2 g protein/kg 99-165 g total protein 20-25/ or per MD mL/kg 4102-6461 total fluid mLs NUTRITION DIAGNOSIS: Swallowing difficulty r/t respiratory status as evidenced by 84 y/o M adm w/ covid++, now orally intubated, NPO. ENTERAL NUTRITION RECOMMENDATIONS: VITAL 1.2 GOAL OF 65ml/hr x24 hrs to provide 1560ml, 1872 kcal, 117g pro, 12 65ml free H2O - When hemodynamically stable, rec to start non oral feeds to meet est kcal and pro needs. - Start Vital 1.2 @35ml/hr for 6 hrs, advance as tolerated 10ml/hr q4-6 hrs to goal. - Flush per . HOB over 30 degrees ADDITIONAL RECOMMENDATIONS: 1) Maintain calibrated bed scale wts 2) Followed by end, monitor for hypoglycemia while NPO 3) Feed when hemodynamically stable, TF recs as above for critical care, carb control, high pro content to meet est needs 4) Re-evaluate TF w/ change in propofol rate-> current rate w/ TF's do NOT exceed est needs. (2) Hypoxemia (3) Renal failure (4) Elevated troponin (5) COVID-19 Assessment & Plan: ++ on abx tx per ID Tommie Barone Nov 14, 2020 12:20
--- NOTE | 2020-11-14 12:30 | NUR ---
NURSE NOTES: PT CLEANED, REPOSITIONED. A FEBRILE. BP STABLE. ORAL CARE AND SUCTION PROVIDED. PT I/O DARK DEBBIE URINE. TOLERATING TUBE FEEDING RUNNING AT 40ML/HR.
--- NOTE | 2020-11-14 13:00 | Consultation ---
DATE OF CONSULTATION: 11/14/2020 GASTROENTEROLOGY CONSULTATION CONSULTING PHYSICIAN: Benoit Saavedra MD. CHIEF COMPLAINT: Anemia and dysphagia. HISTORY OF PRESENT ILLNESS: Most of history per chart. An 84-year-old male admitted to the hospital with COVID positive pneumonia, according to the patient, currently in ICU. GI consult is requested for evaluation of elevated residuals and also anemia. PAST MEDICAL HISTORY: 1. Diabetes. 2. Hypertension. ALLERGIES: No known drug allergies. MEDICATIONS: Please see medication reconciliation list. FAMILY HISTORY: Noncontributory. SOCIAL HISTORY: There is no history of tobacco or alcohol, per chart. PAST SURGICAL HISTORY: Unknown. REVIEW OF SYSTEMS: Unable to obtain. PHYSICAL EXAMINATION: VITAL SIGNS: Temperature is 98.1, pulse 65, respirations 22, blood pressure 125/34. HEENT: Normocephalic and atraumatic. Sclerae are anicteric. NECK: Supple. No evidence of obvious lymphadenopathy. CARDIOVASCULAR: Tachy, regular rate. Plus S1 and S2. LUNGS: Decreased breaths sounds bilaterally diffusely on the supine exam, patient on vent. ABDOMEN: Mildly distended. Hypoactive bowel sounds. No rebound. No guarding. No peritoneal sign. EXTREMITIES: No cyanosis, no clubbing, no edema. LABORATORY DATA: White count is 12, hemoglobin 11.4, hematocrit , platelet count 157,000. Creatinine is 2.0. BUN is 118. Glucose is 304. ASSESSMENT: This is an 84-year-old male with respiratory failure, COVID positive pneumonia, diabetes, renal insufficiency/acute renal failure, elevated residuals, dysphagia, anemia, questionable gastrointestinal bleeding. PLAN: Monitor H and H, transfuse as needed. Continue on Protonix. Send the stool for OB. CBC in a.m. Transfuse to keep hemoglobin above 7. Hold GI procedures at this time. In terms of feeding, we are going to start the patient on Reglan 5 mg IV q.6 h. Monitor for residuals. We will increase the dose of Reglan tomorrow if needed. I am going to add Colace and MiraLAX for bowel regimen. Follow with Pulmonary and Renal for rest of the patient's plan and care. Benoit Jud Saavedra DR: ARLENE JOB#: [id number] CC:
[2020-11-14] MEDS: Metoclopramide 10mg/2ml Inj IVP SCH ×3 (13:08→23:21)
--- NOTE | 2020-11-14 14:11 | Pulmonology Progress Note ---
Subjective ROS Limited/Unobtainable: Yes Interval Events: remains intubated Constitutional: Reports: fever, other - Ct=735.5 HEENT: Repors: no symptoms Respiratory: Reports: no symptoms Cardiovascular: Reports: no symptoms Gastrointestinal/Abdominal: Reports: no symptoms Allergies: Coded Allergies: No Known Allergies (Unverified , 11/06/20) Objective Last 24 Hour Vital Signs Date Time Temp Pulse Resp B/P (MAP) Pulse Ox O2 Delivery O2 Flow Rate FiO2 11/14/20 12:00 74 13 161/42 (81) 98 11/14/20 12:00 Mechanical Ventilator 11/14/20 12:00 90 11/14/20 12:00 81 11/14/20 11:00 63 21 117/40 (65) 98 11/14/20 10:30 65 19 126/33 (64) 97 11/14/20 10:00 67 18 116/24 (54) 99 11/14/20 09:45 63 20 104/25 (51) 98 11/14/20 09:00 66 19 117/29 (58) 97 11/14/20 08:00 71 17 149/40 (76) 99 11/14/20 08:00 Mechanical Ventilator 11/14/20 08:00 100 11/14/20 08:00 65 11/14/20 07:00 60 22 125/34 (64) 96 11/14/20 06:00 65 22 117/27 (57) 96 11/14/20 05:00 78 20 135/35 (68) 96 11/14/20 04:00 63 11/14/20 04:00 100 11/14/20 04:00 81 20 148/34 (72) 89 11/14/20 04:00 Mechanical Ventilator 11/14/20 03:00 79 21 145/29 (67) 97 11/14/20 02:40 81 20 100 11/14/20 02:00 78 21 140/35 (70) 97 11/14/20 01:00 75 21 145/30 (68) 95 11/14/20 00:00 77 22 149/37 (74) 95 11/14/20 00:00 100 11/14/20 00:00 Mechanical Ventilator 11/13/20 23:00 77 22 144/34 (70) 94 11/13/20 22:30 77 21 100 11/13/20 22:00 99 22 138/21 (60) 92 11/13/20 21:00 97 21 143/18 (59) 95 11/13/20 20:00 Mechanical Ventilator 11/13/20 20:00 92 20 146/32 (70) 94 11/13/20 20:00 92 11/13/20 19:06 95 20 60 11/13/20 19:00 91 20 145/24 (64) 94 11/13/20 18:00 97 20 141/29 (66) 96 11/13/20 17:00 84 20 123/22 (55) 96 11/13/20 16:44 80 11/13/20 16:00 60 11/13/20 16:00 98.1 78 18 149/33 (71) 94 11/13/20 16:00 66 11/13/20 16:00 Mechanical Ventilator 11/13/20 15:36 90 20 60 11/13/20 15:00 74 19 131/11 (51) 94 Intake and Output 11/13/20 11/14/20 19:00 07:00 Intake Total 1148.0 ml 600 ml Output Total 300 ml 300 ml Balance 848.0 ml 300 ml Free Water 20 ml IV Total 808.0 ml 600 ml Tube Feeding 320 ml 0 ml Output Urine Total 300 ml 300 ml General Appearance: no acute distress HEENT: normocephalic Respiratory: chest wall non-tender, lungs clear Cardiovascular: normal peripheral pulses, normal rate Abdomen: normal bowel sounds Laboratory Tests 11/13/20 16:30: Arterial Blood pH 7.350, Arterial Blood Partial Pressure CO2 46.5H, Arterial Blood Partial Pressure O2 59.6L, Arterial Blood HCO3 25.1, Arterial Blood Oxygen Saturation 89.2*L, Arterial Blood Base Excess -0.8, Jonathan Test Positive 11/14/20 04:20: White Blood Count 12.7H, Red Blood Count 3.64L, Hemoglobin 11.4L, Hematocrit 35.5L, Mean Corpuscular Volume 97, Mean Corpuscular Hemoglobin 31.3H, Mean Corpuscular Hemoglobin Concent 32.1, Red Cell Distribution Width 14.1, Platelet Count 157, Mean Platelet Volume 7.6, Neutrophils (%) (Auto) , Lymphocytes (%) (Auto) , Monocytes (%) (Auto) , Eosinophils (%) (Auto) , Basophils (%) (Auto) , Differential Total Cells Counted 100, Neutrophils % (Manual) 95H, Lymphocytes % (Manual) 3L, Monocytes % (Manual) 2, Eosinophils % (Manual) 0, Basophils % (Manual) 0, Band Neutrophils 0, Platelet Estimate Adequate, Platelet Morphology Normal, Hypochromasia 1+, Anisocytosis 1+, Microcytosis Occasional, Macrocytosis 1+, Sodium Level 147H, Potassium Level 3.9, Chloride Level 113H, Carbon Dioxide Level 27, Anion Gap 7, Blood Urea Nitrogen 118H, Creatinine 2.0H, Estimat Glomerular Filtration Rate 32.0, Glucose Level 304H, Calcium Level 7.2L 11/14/20 08:47: Arterial Blood pH 7.369, Arterial Blood Partial Pressure CO2 49.3H, Arterial Blood Partial Pressure O2 107.1H, Arterial Blood HCO3 27.8H, Arterial Blood Oxygen Saturation 97.3, Arterial Blood Base Excess 1.9, Jonathan Test Positive 11/14/20 13:06: POC Whole Blood Glucose [Pending] Current Medications Medications (Trade) Dose Ordered Sig/Violet Route PRN Reason Start Time Stop Time Status Last Admin Dose Admin Acetaminophen (Tylenol) 650 mg Q4H PRN GT Temp >100.5 11/12/20 11:00 12/12/20 10:44 Chlorhexidine Gluconate (Patt-Hex 2%) 1 applic DAILY@1999 TOPIC 11/09/20 20:00 02/07/21 19:59 11/13/20 20:00 Dextrose (Dextrose 50%) 25 ml Q30M PRN IV Hypoglycemia 11/06/20 20:00 02/04/21 19:59 Dextrose (Dextrose 50%) 50 ml Q30M PRN IV Hypoglycemia 11/06/20 20:00 02/04/21 19:59 Docusate Sodium (Colace) 100 mg TWICE A DAY GT 11/14/20 18:00 12/14/20 17:59 Enoxaparin Sodium (Lovenox) 40 mg Q24H SUBQ 11/07/20 21:00 02/05/21 20:59 11/13/20 21:01 Flumazenil (Romazicon) 0.2 mg NEEDED PRN IV Sedation reversal 11/06/20 20:00 Insulin Aspart (NovoLOG) EVERY 6 HOURS SUBQ 11/08/20 12:00 02/05/21 16:29 11/14/20 13:26 Insulin Detemir (Levemir) 14 units EVERY 12 HOURS SUBQ 11/13/20 09:00 02/05/21 20:59 11/14/20 09:40 Methylprednisolone Sodium Succinate (Solu-MEDROL) 40 mg Q12HR IVP 11/08/20 12:00 11/15/20 11:59 11/14/20 09:38 Metoclopramide HCl (Reglan) 5 mg Q6HR IVP 11/14/20 12:26 12/14/20 12:25 11/14/20 13:08 Naloxone HCl (Narcan) 0.4 mg NEEDED PRN IVP RR less than 6/min 11/06/20 20:00 02/04/21 19:59 Ondansetron HCl (Zofran) 4 mg Q6H PRN IVP Nausea & Vomiting 11/06/20 20:00 12/06/20 19:59 Pantoprazole (Protonix) 40 mg DAILY IVP 11/08/20 09:00 12/08/20 08:59 11/14/20 09:39 Piperacillin Sod/ Tazobactam Sod 3.375 gm/Sodium Chloride 110 ml @ 27.5 mls/hr Q8HR IVPB 11/14/20 14:00 11/21/20 13:59 Polyethylene Glycol (Miralax) 17 gm BEDTIME GT 11/14/20 21:00 12/14/20 20:59 Sodium Bicarbonate 50 ml/ Dextrose 1,050 ml @ 50 mls/hr Q21H IV 11/12/20 21:00 12/12/20 20:59 11/13/20 16:59 Assessment/Plan Assessment/Plan IMPRESSION: 1. COVID-19 pneumonia. 2. Diabetes mellitus. 3. Hypertension. 4. Hyperkalemia. 5. CKD. 6. Metabolic acidosis. 7. Respiratory Failure; Acute Lung Injury 9. Change in mental status; will dc sedation; continue vent; may need head CT DISCUSSION: Continue broad-spectrum antibiotics. Continue vent/AC mode Currently FiO2 60%; PEEP 5 Endo tracheal tube adjusted; pt holding volumes on vent now Blood sugar control, Continue Decadron. Off propofol Check labs and ABG AM CXR unchanged Jud Werner Omar Syed MD Nov 14, 2020 14:11
--- NOTE | 2020-11-14 14:19 | Infectious Diseases Prog Note ---
Assessment/Plan Assessment/Plan A: 1. COVID-19 pneumonia. 2. Positive blood culture likely contamination 3. Respiratory failure with hypoxia 4. Diabetes. 5. Hypertension. 6. Renal failure. 7. Acidosis PLAN: 1. Finished remdesivir course 2. continue Solu-Medrol. 3. Continue Zosyn. 4. Continue isolation. Subjective ROS Limited/Unobtainable: Yes Constitutional: Denies: fever Neurologic: Reports: confusion, other - on restraint Allergies: Coded Allergies: No Known Allergies (Unverified , 11/06/20) Objective Last 24 Hour Vital Signs Date Time Temp Pulse Resp B/P (MAP) Pulse Ox O2 Delivery O2 Flow Rate FiO2 11/14/20 12:00 74 13 161/42 (81) 98 11/14/20 12:00 Mechanical Ventilator 11/14/20 12:00 90 11/14/20 12:00 81 11/14/20 11:00 63 21 117/40 (65) 98 11/14/20 10:30 65 19 126/33 (64) 97 11/14/20 10:00 67 18 116/24 (54) 99 11/14/20 09:45 63 20 104/25 (51) 98 11/14/20 09:00 66 19 117/29 (58) 97 11/14/20 08:00 71 17 149/40 (76) 99 11/14/20 08:00 Mechanical Ventilator 11/14/20 08:00 100 11/14/20 08:00 65 11/14/20 07:00 60 22 125/34 (64) 96 11/14/20 06:00 65 22 117/27 (57) 96 11/14/20 05:00 78 20 135/35 (68) 96 11/14/20 04:00 63 11/14/20 04:00 100 11/14/20 04:00 81 20 148/34 (72) 89 11/14/20 04:00 Mechanical Ventilator 11/14/20 03:00 79 21 145/29 (67) 97 11/14/20 02:40 81 20 100 11/14/20 02:00 78 21 140/35 (70) 97 11/14/20 01:00 75 21 145/30 (68) 95 11/14/20 00:00 77 22 149/37 (74) 95 11/14/20 00:00 100 11/14/20 00:00 Mechanical Ventilator 11/13/20 23:00 77 22 144/34 (70) 94 11/13/20 22:30 77 21 100 11/13/20 22:00 99 22 138/21 (60) 92 11/13/20 21:00 97 21 143/18 (59) 95 11/13/20 20:00 Mechanical Ventilator 11/13/20 20:00 92 20 146/32 (70) 94 11/13/20 20:00 92 11/13/20 19:06 95 20 60 11/13/20 19:00 91 20 145/24 (64) 94 11/13/20 18:00 97 20 141/29 (66) 96 11/13/20 17:00 84 20 123/22 (55) 96 11/13/20 16:44 80 11/13/20 16:00 60 11/13/20 16:00 98.1 78 18 149/33 (71) 94 11/13/20 16:00 66 11/13/20 16:00 Mechanical Ventilator 11/13/20 15:36 90 20 60 11/13/20 15:00 74 19 131/11 (51) 94 Height (Feet): 6 Height (Inches): 1.00 Weight (Pounds): 190 HEENT: other - orally intubated Respiratory/Chest: other - on ventilator Cardiovascular: normal rate Abdomen: soft, non tender, other - Orogastric tube Extremities: no edema Neurologic/Psychiatric: disoriented Laboratory Tests Test 11/13/20 16:30 11/14/20 04:20 11/14/20 08:47 11/14/20 13:06 Arterial Blood pH 7.350 (7.350-7.450) 7.369 (7.350-7.450) Arterial Blood Partial Pressure CO2 46.5 mmHg (35.0-45.0) H 49.3 mmHg (35.0-45.0) H Arterial Blood Partial Pressure O2 59.6 mmHg (75.0-100.0) L 107.1 mmHg (75.0-100.0) H Arterial Blood HCO3 25.1 mmol/L (22.0-26.0) 27.8 mmol/L (22.0-26.0) H Arterial Blood Oxygen Saturation 89.2 % (95-100) *L 97.3 % (95-100) Arterial Blood Base Excess -0.8 (-2-2) 1.9 (-2-2) Jonathan Test Positive Positive White Blood Count 12.7 K/UL (4.8-10.8) H Red Blood Count 3.64 M/UL (4.70-6.10) L Hemoglobin 11.4 G/DL (14.2-18.0) L Hematocrit 35.5 % (42.0-52.0) L Mean Corpuscular Volume 97 FL (80-99) Mean Corpuscular Hemoglobin 31.3 PG (27.0-31.0) H Mean Corpuscular Hemoglobin Concent 32.1 G/DL (32.0-36.0) Red Cell Distribution Width 14.1 % (11.6-14.8) Platelet Count 157 K/UL (150-450) Mean Platelet Volume 7.6 FL (6.5-10.1) Neutrophils (%) (Auto) % (45.0-75.0) Lymphocytes (%) (Auto) % (20.0-45.0) Monocytes (%) (Auto) % (1.0-10.0) Eosinophils (%) (Auto) % (0.0-3.0) Basophils (%) (Auto) % (0.0-2.0) Differential Total Cells Counted 100 Neutrophils % (Manual) 95 % (45-75) H Lymphocytes % (Manual) 3 % (20-45) L Monocytes % (Manual) 2 % (1-10) Eosinophils % (Manual) 0 % (0-3) Basophils % (Manual) 0 % (0-2) Band Neutrophils 0 % (0-8) Platelet Estimate Adequate Platelet Morphology Normal Hypochromasia 1+ Anisocytosis 1+ Microcytosis Occasional Macrocytosis 1+ Sodium Level 147 MMOL/L (136-145) H Potassium Level 3.9 MMOL/L (3.5-5.1) Chloride Level 113 MMOL/L (98-107) H Carbon Dioxide Level 27 MMOL/L (21-32) Anion Gap 7 mmol/L (5-15) Blood Urea Nitrogen 118 mg/dL (7-18) H Creatinine 2.0 MG/DL (0.55-1.30) H Estimat Glomerular Filtration Rate 32.0 mL/min (>60) Glucose Level 304 MG/DL (74-106) H Calcium Level 7.2 MG/DL (8.5-10.1) L POC Whole Blood Glucose Pending Current Medications Medications (Trade) Dose Ordered Sig/Violet Route PRN Reason Start Time Stop Time Status Last Admin Dose Admin Acetaminophen (Tylenol) 650 mg Q4H PRN GT Temp >100.5 11/12/20 11:00 12/12/20 10:44 Chlorhexidine Gluconate (Patt-Hex 2%) 1 applic DAILY@1999 TOPIC 11/09/20 20:00 02/07/21 19:59 11/13/20 20:00 Dextrose (Dextrose 50%) 25 ml Q30M PRN IV Hypoglycemia 11/06/20 20:00 02/04/21 19:59 Dextrose (Dextrose 50%) 50 ml Q30M PRN IV Hypoglycemia 11/06/20 20:00 02/04/21 19:59 Docusate Sodium (Colace) 100 mg TWICE A DAY GT 11/14/20 18:00 12/14/20 17:59 Enoxaparin Sodium (Lovenox) 40 mg Q24H SUBQ 11/07/20 21:00 02/05/21 20:59 11/13/20 21:01 Flumazenil (Romazicon) 0.2 mg NEEDED PRN IV Sedation reversal 11/06/20 20:00 Insulin Aspart (NovoLOG) EVERY 6 HOURS SUBQ 11/08/20 12:00 02/05/21 16:29 11/14/20 13:26 Insulin Detemir (Levemir) 14 units EVERY 12 HOURS SUBQ 11/13/20 09:00 02/05/21 20:59 11/14/20 09:40 Methylprednisolone Sodium Succinate (Solu-MEDROL) 40 mg Q12HR IVP 11/08/20 12:00 11/15/20 11:59 11/14/20 09:38 Metoclopramide HCl (Reglan) 5 mg Q6HR IVP 11/14/20 12:26 12/14/20 12:25 11/14/20 13:08 Naloxone HCl (Narcan) 0.4 mg NEEDED PRN IVP RR less than 6/min 11/06/20 20:00 02/04/21 19:59 Ondansetron HCl (Zofran) 4 mg Q6H PRN IVP Nausea & Vomiting 11/06/20 20:00 12/06/20 19:59 Pantoprazole (Protonix) 40 mg DAILY IVP 11/08/20 09:00 12/08/20 08:59 11/14/20 09:39 Piperacillin Sod/ Tazobactam Sod 3.375 gm/Sodium Chloride 110 ml @ 27.5 mls/hr Q8HR IVPB 11/14/20 14:00 11/21/20 13:59 Polyethylene Glycol (Miralax) 17 gm BEDTIME GT 11/14/20 21:00 12/14/20 20:59 Sodium Bicarbonate 50 ml/ Dextrose 1,050 ml @ 50 mls/hr Q21H IV 11/12/20 21:00 12/12/20 20:59 11/13/20 16:59 Karson Cabrera MD Nov 14, 2020 14:19
--- NOTE | 2020-11-14 14:51 | NUR ---
CASE MANAGEMENT:REVIEW SI;COVID POSITIVE. RESPIRATORY FAILURE~INTUBATED. T:98.2 P:88 RR:21 BP:104/25 O2:94% ETT/VENT AC 16 TV 600 PEEP 5 FIO2 90% WBC 12.7 NA 147 BUN 118 CR 2.0 BG 304 CA 7.2 IS;REGLAN IV Q6 SOLU-MEDROL IV Q12 LEVEMIR INSULIN SQ Q12 ZOSYN IV Q8 LOVENOX SQ Q24 PROTONIX IV QD ICU STATUS DCP;FROM HOME
[2020-11-14] MEDS: Sodium Bicarbonate 50 ML in D5W 1000ml 1,000 ML IV SCH (15:14)
[2020-11-14] MEDS: Piperacillin/Tazobactam 3.375 GM in NS 110 ML IVPB SCH ×2 (15:14→22:53)
--- NOTE | 2020-11-14 15:49 | General Progress Note ---
Subjective Date patient seen: Nov 14, 2020 ROS Limited/Unobtainable: Yes Allergies: Coded Allergies: No Known Allergies (Unverified , 11/06/20) Subjective Patient titrated to 100% FiO2. On AC/VC. Vent settings reviewed. Abg reviewed. Patient's mental status improving per RN report off sedation. ROS: unable to obtain due to ALOC Objective Last 24 Hour Vital Signs Date Time Temp Pulse Resp B/P (MAP) Pulse Ox O2 Delivery O2 Flow Rate FiO2 11/14/20 13:00 98.2 88 18 174/48 (90) 94 11/14/20 12:00 74 13 161/42 (81) 98 11/14/20 12:00 Mechanical Ventilator 11/14/20 12:00 90 11/14/20 12:00 81 11/14/20 11:00 63 21 117/40 (65) 98 11/14/20 10:30 65 19 126/33 (64) 97 11/14/20 10:00 67 18 116/24 (54) 99 11/14/20 09:45 63 20 104/25 (51) 98 11/14/20 09:00 66 19 117/29 (58) 97 11/14/20 08:00 71 17 149/40 (76) 99 11/14/20 08:00 Mechanical Ventilator 11/14/20 08:00 100 11/14/20 08:00 65 11/14/20 07:00 60 22 125/34 (64) 96 11/14/20 06:00 65 22 117/27 (57) 96 11/14/20 05:00 78 20 135/35 (68) 96 11/14/20 04:00 63 11/14/20 04:00 100 11/14/20 04:00 81 20 148/34 (72) 89 11/14/20 04:00 Mechanical Ventilator 11/14/20 03:00 79 21 145/29 (67) 97 11/14/20 02:40 81 20 100 11/14/20 02:00 78 21 140/35 (70) 97 11/14/20 01:00 75 21 145/30 (68) 95 11/14/20 00:00 77 22 149/37 (74) 95 11/14/20 00:00 100 11/14/20 00:00 Mechanical Ventilator 11/13/20 23:00 77 22 144/34 (70) 94 11/13/20 22:30 77 21 100 11/13/20 22:00 99 22 138/21 (60) 92 11/13/20 21:00 97 21 143/18 (59) 95 11/13/20 20:00 Mechanical Ventilator 11/13/20 20:00 92 20 146/32 (70) 94 11/13/20 20:00 92 11/13/20 19:06 95 20 60 11/13/20 19:00 91 20 145/24 (64) 94 11/13/20 18:00 97 20 141/29 (66) 96 11/13/20 17:00 84 20 123/22 (55) 96 11/13/20 16:44 80 11/13/20 16:00 60 11/13/20 16:00 98.1 78 18 149/33 (71) 94 11/13/20 16:00 66 11/13/20 16:00 Mechanical Ventilator Intake and Output 11/13/20 11/14/20 19:00 07:00 Intake Total 1148.0 ml 600 ml Output Total 300 ml 300 ml Balance 848.0 ml 300 ml Free Water 20 ml IV Total 808.0 ml 600 ml Tube Feeding 320 ml 0 ml Output Urine Total 300 ml 300 ml Laboratory Tests 11/13/20 16:30: Arterial Blood pH 7.350, Arterial Blood Partial Pressure CO2 46.5H, Arterial Blood Partial Pressure O2 59.6L, Arterial Blood HCO3 25.1, Arterial Blood Oxygen Saturation 89.2*L, Arterial Blood Base Excess -0.8, Jonathan Test Positive 11/14/20 04:20: White Blood Count 12.7H, Red Blood Count 3.64L, Hemoglobin 11.4L, Hematocrit 35.5L, Mean Corpuscular Volume 97, Mean Corpuscular Hemoglobin 31.3H, Mean Cor puscular Hemoglobin Concent 32.1, Red Cell Distribution Width 14.1, Platelet Count 157, Mean Platelet Volume 7.6, Neutrophils (%) (Auto) , Lymphocytes (%) (Auto) , Monocytes (%) (Auto) , Eosinophils (%) (Auto) , Basophils (%) (Auto) , Differential Total Cells Counted 100, Neutrophils % (Manual) 95H, Lymphocytes % (Manual) 3L, Monocytes % (Manual) 2, Eosinophils % (Manual) 0, Basophils % (Manual) 0, Band Neutrophils 0, Platelet Estimate Adequate, Platelet Morphology Normal, Hypochromasia 1+, Anisocytosis 1+, Microcytosis Occasional, Macrocytosis 1+, Sodium Level 147H, Potassium Level 3.9, Chloride Level 113H, Carbon Dioxide Level 27, Anion Gap 7, Blood Urea Nitrogen 118H, Creatinine 2.0H, Estimat Glomerular Filtration Rate 32.0, Glucose Level 304H, Calcium Level 7.2L 11/14/20 08:47: Arterial Blood pH 7.369, Arterial Blood Partial Pressure CO2 49.3H, Arterial Blood Partial Pressure O2 107.1H, Arterial Blood HCO3 27.8H, Arterial Blood Oxygen Saturation 97.3, Arterial Blood Base Excess 1.9, Jonathan Test Positive 11/14/20 13:06: POC Whole Blood Glucose [Pending] Height (Feet): 6 Height (Inches): 1.00 Weight (Pounds): 190 Objective Exam limited due to COVID status and to conserve PPE. Per discussion with RN. General: Male A&O x 0. intubated HEENT: Normocephalic cephalic atraumatic, nares patent and no symmetrical, no tonsillar exudates, mucous membranes moist CV: Regular rate regular rhythm, no murmurs, rubs, or gallops Pulm: Lungs coarse breath sounds bilaterally. No wheezes, rhonchi, or rales GI: Soft, nontender, nondistended, bowel sounds present Neuro: Moving all extremities Ext: No lower extremity edema bilaterally Skin: no rashes lesions or ulcers Msk: Joints symmetrical in upper extremity and lower extremity bilaterally, no joint swelling. Lymph: No lymphadenopathy in upper extremity and lower extremity Assessment/Plan Status: stable Assessment/Plan: 84 yo M w DM2, HTN, ? CKD admitted for Covid19 PNA with SAMEER # acute hypoxemia Resp failure 2/2 covid PNA - higher FiO2 today > s/p intubation on 11/07/20. EtTube out on 11/11 but re-inserted # Covid PNA # Lactic acid elevation # elevated D dimer # Trop elevated - Patient full code. See Advanced care plan note. Will continue discussions as patient progresses - s/p IVF bolus in ED, will keep lung dry as much as possible - s/p decadron 6mg iv daily - solumedrol Q12hr (11/08 - ) - Remdesivir per ID (11/09 - ) - azithromycin (11/08 - ) - Vancomycin (11/09 - ) - Zosyn (11/09 - ) - Abx per ID - pulm consult: Chasity - ID consult: Steven - Aneesh consult - trend ABG: reviewed - Continue Ac/VC - propofol for sedation - monitor triglycerides - Wean vent as tolerated - s/p NG tube 11/07 for meds. start tube feeding - IV fluids per nephro #S. hominis bacteremia, Contaminant? Defer to ID #Bilateral superimposed pneumonia - ID consulted: Dr. Harris - Follow surveilance cultures - Vanc per pharm (11/08 - ) - Zosyn (11/08 - ) #Anemia - concern for GI bleed - GI consult Dr. Saavedra # Malnutrition #HTN, current normotensive - Tube feedings - Appreciate surgery recs - D/w RN # DM2 uncontrolled #hyperglycemia - detemir 10 units BID - continue SSI - accuchecks - hypoglycemia protocol # SAMEER vs. SAMEER on CKD, likely prerenal # Dehydration - renal consult - Gentle IV fluids - i/o monitor, montilla cath FENPPX DVTPPX: lovenox GI PPX: protonix Fluids: per nephro Diet: NPO, tube feedings PT/OT: deferred Code status: Full code Dispo: SNF eventually. Guarded prognosis. Family aware Reason for Continued Hospitalization: Hypoxia Time of my involvement, the patient's condition was critical with high potential for and/or physiologic deterioration secondary to acute hypoxic respiratory failure as delineated in the note above. On the above date of service, I spent a total of 40 minutes in the ICU ev aluating, managing, and providing critical care services to this patient, including time spent documenting these activities, counseling patient/family, and coordinating care. Critical care services performed include: -Telemetry review -Hemodynamic measurement interpretation -Laboratory data review and interpretation -Vent setting reviewed, management -Discussion of care plans with patient, family, and/or surrogate decision makers -Discussion of patient's care with medical team, surgical team, and/or consul ting service -Decision to obtain further radiologic evaluation, after consideration of the risk/benefit ratio -Review of most recent microbiology results assessment and modification of antimicrobial coverage -Discussion of patient's CODE STATUS and further advancement towards the ultimate goals of care. Plan outlined above discussed with patient/family, SPRINKLER TENDER, ICU team, and invol daisy physician/consultants. Time of note not necessarily time patient was seen Rudy Poole M.D. Nov 14, 2020 15:49
--- NOTE | 2020-11-14 16:16 | NUR ---
NURSE NOTES: PT IN NO ACUTE DISTRESS. WILL CONTINUE TO MONITOR
[2020-11-14] MEDS: Docusate 100mg/10ml Liq GT SCH (18:20)
--- NOTE | 2020-11-14 19:48 | NUR ---
NURSE HAND-OFF REPORT: Latest Vital Signs: Temperature 98.8 , Pulse 109 , B/P 145 /64 , Respiratory Rate 25 , O2 SAT 92 , Mechanical Ventilator, O2 Flow Rate . Vital Sign Comment: EKG Rhythm: Sinus Rhythm Rhythm change?: N MD Notified?: N - MD Response: Latest Blackwell Fall Score: 50 Fall Risk: High Risk Safety Measures: Call light Within Reach, Bed Alarm Zone 1, Side Rails Side Rails x3, Bed position Low and Locked. Fall Precautions: Door Sign Report given to Favian VILLEGAS R.N
--- NOTE | 2020-11-14 20:02 | NUR ---
NURSE NOTES: Report received from LYNDA Chester. Observed pt lying in the bed, open eyes, non-verbal .ST with HR of 110 noted. ETT, 7.5, 25cm at lip, AC 16/600/90%/5, saturating at 88 noted, FIO2 changed to 100% at this time, will monitor saturation. OGT intact, on hold due to high residual, goal is Vital AF at 65cc/hr. F/C intact. R femoral TLC noted, running D5 w/ HCO3 at 50cc/hr. bed in the lowest position. Side rails up x3. Will continue to monitor.
[2020-11-14] MEDS: Enoxaparin 40mg Inj SUBQ SCH (20:35)
[2020-11-14] MEDS: Dyna-Hex 2% Top Sol 2oz TOPIC SCH (20:35)
[2020-11-14] MEDS: Miralax 17gm pkt GT SCH (20:36)
--- NOTE | 2020-11-14 22:06 | NUR ---
NURSE NOTES: Pt tolerating vent setting, AC 16/600/100%/5, saturating at 95% at this time. Reposition done. oral care given. Family member updated. Will continue to monitor.
[2020-11-14] MEDS ORDERED: Metoprolol Succinate XL 50mg tab ORAL SCH (23:00)
--- NOTE | 2020-11-14 23:03 | NUR ---
NURSE NOTES: Noted pt converted to Afib with HR of 110-120s. Notified and new order received. Will continue to monitor .
[2020-11-14] MEDS: Metoprolol Tartrate 50mg tab ORAL SCH (23:20)
[2020-11-15] VITALS (24 sets, daily range): BP systolic 99–170; BP diastolic 37–83
--- NOTE | 2020-11-15 01:37 | NUR ---
NURSE NOTES: Pt sleeping in bed at this time. Tolerating current vent setting, AC 16/600/100%/PEEP5, saturating at 100% at this time. Reposition done. Oral care given. Will continue to monitor.
--- NOTE | 2020-11-15 03:27 | NUR ---
NURSE NOTES: No acute distress noted at this time. Afib noted with HR of 90s at this time. Tolerating vent setting, FIO2 100%, saturating at 99%. Tolerating feeding at 10cc/hr, no residual at this time. Will continue to monitor .
[2020-11-15] MEDS: Metoclopramide 10mg/2ml Inj IVP SCH ×3 (05:32→18:42)
[2020-11-15] MEDS: Piperacillin/Tazobactam 3.375 GM in NS 110 ML IVPB SCH (05:32)
[2020-11-15] MEDS: NovoLOG Insulin Flexpen SUBQ SCH ×3 (05:33→18:43)
--- NOTE | 2020-11-15 05:51 | NUR ---
NURSE NOTES: No acute distress noted at this time. Pt awake, calm. SR noted at this time. Tolerating current vent setting, AC 16/00/100%/5. BS of 316 noted, covered. Reposition done. Oral care given. Will continue to monitor .
[2020-11-15 06:05] LABS: HEMATOCRIT 33.1 % (42.0-52.0); HEMOGLOBIN 10.9 G/DL (14.2-18.0); MEAN CORPUSCULAR VOLUME 94 FL (80-99); PLATELET COUNT 166 K/UL (150-450); RED BLOOD COUNT 3.53 M/UL (4.70-6.10); RED CELL DISTRIBUTION WIDTH 14.6 % (11.6-14.8); WHITE BLOOD COUNT 10.6 K/UL (4.8-10.8)
[2020-11-15 06:27] LABS: ALBUMIN 1.1 G/DL (3.4-5.0); ALBUMIN/GLOBULIN RATIO 0.3 (1.0-2.7); BILIRUBIN,TOTAL 0.8 MG/DL (0.2-1.0); CALCIUM 7.5 MG/DL (8.5-10.1); POTASSIUM 3.7 MMOL/L (3.5-5.1)
[2020-11-15 06:57] LABS: PHOSPHORUS 3.8 MG/DL (2.5-4.9)
--- NOTE | 2020-11-15 07:06 | NUR ---
NURSE HAND-OFF REPORT: pt having Afib, notified and new order carried out. Vent setting, AC 16/600/100%/PEEP5, saturating at 96%. Latest Vital Signs: Temperature 97.6 , Pulse 84 , B/P 124 /41 , Respiratory Rate 26 , O2 SAT 100 , Mechanical Ventilator, O2 Flow Rate . Vital Sign Comment: [] EKG Rhythm: Sinus Rhythm Rhythm change?: N MD Notified?: Y -Dr.Filsoof WILLS Response: Order Received& Read Back Latest Blackwell Fall Score: 50 Fall Risk: High Risk Safety Measures: Call light Within Reach, Bed Alarm Zone 1, Side Rails Side Rails x3, Bed position Low and Locked. Fall Precautions: Door Sign Report given to LYNDA Garcia.
--- NOTE | 2020-11-15 07:26 | NUR ---
NURSE NOTES: Received report from Darwin HOWELL.
[2020-11-15] MEDS: Docusate 100mg/10ml Liq GT SCH ×2 (08:23→18:00)
[2020-11-15] MEDS: Pantoprazole Inj IVP SCH (08:23)
[2020-11-15] MEDS: Solu-MEDROL 40mg Inj IVP SCH (08:23)
[2020-11-15] MEDS: Metoprolol Tartrate 50mg tab ORAL SCH ×2 (08:24→21:18)
--- NOTE | 2020-11-15 08:30 | NUR ---
NURSE NOTES: Pt. in bed, sleeping. Non-verbal. No sign of distress. ETT with setting AC16/VT600/Fi O2 of 100%/P5. No grimacing. HOB elevated at all times. On OGT Vital AF running at 65cc/hr. No n/v noted. Tolerating well. F/C in placed patent/intact draining yellow colored urine. Right femoral TLC in placed patent/intact running [id number] at 50cc/hr. Bed in low position, locked. Call light within reach. Will cont. to monitor.
[2020-11-15] MEDS: Levemir Flexpen SUBQ SCH ×2 (08:51→21:30)
--- NOTE | 2020-11-15 10:05 | General Progress Note ---
Subjective ROS Limited/Unobtainable: No Allergies: Coded Allergies: No Known Allergies (Unverified , 11/06/20) Objective Last 24 Hour Vital Signs Date Time Temp Pulse Resp B/P (MAP) Pulse Ox O2 Delivery O2 Flow Rate FiO2 11/15/20 09:00 94 21 127/47 (73) 100 11/15/20 08:24 90 118/51 11/15/20 08:00 90 11/15/20 08:00 Mechanical Ventilator 11/15/20 08:00 98.5 90 25 118/51 (73) 100 11/15/20 07:00 84 26 124/41 (68) 100 11/15/20 06:59 94 22 100 11/15/20 06:00 92 23 135/50 (78) 96 11/15/20 05:00 89 21 129/53 (78) 100 11/15/20 04:00 97.6 80 24 105/43 (63) 100 11/15/20 04:00 81 11/15/20 04:00 90 11/15/20 04:00 Mechanical Ventilator 11/15/20 03:00 90 24 114/37 (62) 100 11/15/20 02:31 87 28 100 11/15/20 02:00 90 23 129/55 (79) 99 11/15/20 01:00 74 30 111/54 (73) 100 11/15/20 00:14 90 11/15/20 00:00 96 11/15/20 00:00 97.5 81 28 129/60 (83) 98 11/15/20 00:00 Mechanical Ventilator 11/14/20 23:22 104 30 100 11/14/20 23:20 104 123/37 11/14/20 23:00 104 27 123/37 (65) 11/14/20 22:45 114 27 135/56 (82) 95 11/14/20 22:00 119 27 169/64 (99) 92 11/14/20 21:00 119 28 178/64 (102) 92 11/14/20 20:00 Mechanical Ventilator 11/14/20 20:00 90 11/14/20 20:00 127 11/14/20 20:00 111 24 144/65 (91) 88 11/14/20 19:30 109 25 90 11/14/20 19:00 123 23 145/64 (91) 92 11/14/20 18:00 111 19 142/55 (84) 96 11/14/20 17:00 86 20 139/40 (73) 96 11/14/20 16:00 98.8 78 21 103/52 (69) 94 11/14/20 16:00 90 11/14/20 16:00 Mechanical Ventilator 11/14/20 16:00 111 11/14/20 15:41 87 19 90 11/14/20 15:00 79 21 109/44 (65) 96 11/14/20 14:00 71 20 91 11/14/20 13:00 98.2 88 18 174/48 (90) 94 11/14/20 12:45 90 11/14/20 12:00 74 13 161/42 (81) 98 11/14/20 12:00 Mechanical Ventilator 11/14/20 12:00 90 11/14/20 12:00 81 11/14/20 11:46 86 18 100 11/14/20 11:00 63 21 117/40 (65) 98 11/14/20 10:30 65 19 126/33 (64) 97 Intake and Output0 11/14/20 11/15/20 18:59 06:59 Intake Total 882.5 ml 1307.5 ml Output Total 357 ml 580 ml Balance 525.5 ml 727.5 ml Free Water 100 ml IV Total 632.5 ml 577.5 ml Tube Feeding 250 ml 630 ml Output Urine Total 357 ml 480 ml Stool Total 100 ml Laboratory Tests 11/14/20 13:06: POC Whole Blood Glucose [Pending] 11/14/20 18:25: POC Whole Blood Glucose 297H 11/14/20 20:23: POC Whole Blood Glucose 318H 11/15/20 04:46: White Blood Count 10.6, Red Blood Count 3.53L, Hemoglobin 10.9L, Hematocrit 33.1L, Mean Corpuscular Volume 94, Mean Corpuscular Hemoglobin 30.9, Mean Corpuscular Hemoglobin Concent 32.9, Red Cell Distribution Width 14.6, Platelet Count 166, Mean Platelet Volume 8.6, Neutrophils (%) (Auto) , Lymphocytes (%) (Auto) , Monocytes (%) (Auto) , Eosinophils (%) (Auto) , Basophils (%) (Auto) , Differential Total Cells Counted 100, Neutrophils % (Manual) 97H, Lymphocytes % (Manual) 2L, Monocytes % (Manual) 1, Eosinophils % (Manual) 0, Basophils % (Ma nual) 0, Band Neutrophils 0, Platelet Estimate Adequate, Platelet Morphology Normal, Anisocytosis 1+, Sodium Level 148H, Potassium Level 3.7, Chloride Level 114H, Carbon Dioxide Level 29, Anion Gap 5, Blood Urea Nitrogen 135H, Creatinine 2.0H, Estimat Glomerular Filtration Rate 32.0, Glucose Level 354H, Calcium Level 7.5L, Phosphorus Level 3.8, Magnesium Level 2.7H, Total Bilirubin 0.8, Aspartate Amino Transf (AST/SGOT) 51H, Alanine Aminotransferase (ALT/SGPT) 38, Alkaline Phosphatase 171H, Total Protein 5.1L, Albumin 1.1L, Globulin 4.0, Albumin/Globulin Ratio 0.3L Height (Feet): 6 Height (Inches): 1.00 Weight (Pounds): 190 General Appearance: no apparent distress EENT: normal ENT inspection Neck: supple Cardiovascular: normal rate Respiratory/Chest: decreased breath sounds Abdomen: normal bowel sounds, non tender, soft Extremities: non-tender Assessment/Plan Problem List: (1) COVID-19 ICD Codes: U07.1 - COVID-19 SNOMED: 763317000 (2) Elevated troponin ICD Codes: R77.8 - Other specified abnormalities of plasma proteins SNOMED: 426724410, 667407099, 649401327 (3) Renal failure ICD Codes: N19 - Unspecified kidney failure SNOMED: 81928493, 01228164 (4) Hypoxemia ICD Codes: R09.02 - Hypoxemia SNOMED: 426954745, 02040591 (5) ARDS (adult respiratory distress syndrome) ICD Codes: J80 - Acute respiratory distress syndrome SNOMED: 74304464, 14454796 Status: stable Assessment/Plan: GTF running reglan fu labs icu care covid isolation Benoit Saavedra MD Nov 15, 2020 10:05
--- NOTE | 2020-11-15 10:25 | NUR ---
NURSE NOTES: Pt. turned and repositioned. Pt. remain stable.
--- NOTE | 2020-11-15 10:26 | Nephrology Progress Note ---
Assessment/Plan Plan #SAMEER on CKD- likely pre-renal azotemia in the setting of sepsis #hypnatremia # acute hypoxemia Resp failure 2/2 covid PNA requiring BIPAP # Covid PNA # Lactic acid elevation # Malnutrition #HTN, current normotensive # elevated D dimer # Trop elevated # DM2 uncontrolled - increase free water flushes 250cc q6hr - DC bicarb drip - intubated - monitor volume status - monitor ABG - monitor BMP, mag and phos daily - strict I&Os - daily weights - echo - defer renal US - antibiotic per ID time spent 65min Subjective ROS Limited/Unobtainable: Yes Subjective intubated Cr fluctuating sodium remains elevated will increasefree water flushes Objective Objective Last 24 Hour Vital Signs Date Time Temp Pulse Resp B/P (MAP) Pulse Ox O2 Delivery O2 Flow Rate FiO2 11/15/20 10:00 93 27 105/42 (63) 96 11/15/20 09:00 94 21 127/47 (73) 100 11/15/20 08:24 90 118/51 11/15/20 08:00 90 11/15/20 08:00 Mechanical Ventilator 11/15/20 08:00 98.5 90 25 118/51 (73) 100 11/15/20 07:56 85 11/15/20 07:00 84 26 124/41 (68) 100 11/15/20 06:59 94 22 100 11/15/20 06:00 92 23 135/50 (78) 96 11/15/20 05:00 89 21 129/53 (78) 100 11/15/20 04:00 97.6 80 24 105/43 (63) 100 11/15/20 04:00 81 11/15/20 04:00 90 11/15/20 04:00 Mechanical Ventilator 11/15/20 03:00 90 24 114/37 (62) 100 11/15/20 02:31 87 28 100 11/15/20 02:00 90 23 129/55 (79) 99 11/15/20 01:00 74 30 111/54 (73) 100 11/15/20 00:14 90 11/15/20 00:00 96 11/15/20 00:00 97.5 81 28 129/60 (83) 98 11/15/20 00:00 Mechanical Ventilator 11/14/20 23:22 104 30 100 11/14/20 23:20 104 123/37 11/14/20 23:00 104 27 123/37 (65) 11/14/20 22:45 114 27 135/56 (82) 95 11/14/20 22:00 119 27 169/64 (99) 92 11/14/20 21:00 119 28 178/64 (102) 92 11/14/20 20:00 Mechanical Ventilator 11/14/20 20:00 90 11/14/20 20:00 127 11/14/20 20:00 111 24 144/65 (91) 88 11/14/20 19:30 109 25 90 11/14/20 19:00 123 23 145/64 (91) 92 11/14/20 18:00 111 19 142/55 (84) 96 11/14/20 17:00 86 20 139/40 (73) 96 11/14/20 16:00 98.8 78 21 103/52 (69) 94 11/14/20 16:00 90 11/14/20 16:00 Mechanical Ventilator 11/14/20 16:00 111 11/14/20 15:41 87 19 90 11/14/20 15:00 79 21 109/44 (65) 96 11/14/20 14:00 71 20 91 11/14/20 13:00 98.2 88 18 174/48 (90) 94 11/14/20 12:45 90 11/14/20 12:00 74 13 161/42 (81) 98 11/14/20 12:00 Mechanical Ventilator 11/14/20 12:00 90 11/14/20 12:00 81 11/14/20 11:46 86 18 100 11/14/20 11:00 63 21 117/40 (65) 98 11/14/20 10:30 65 19 126/33 (64) 97 Intake and Output 11/14/20 11/15/20 19:00 07:00 Intake Total 960.0 ml 1245 ml Output Total 367 ml 585 ml Balance 593.0 ml 660 ml Free Water 100 ml IV Total 660.0 ml 500 ml Tube Feeding 300 ml 645 ml Output Urine Total 367 ml 485 ml Stool Total 100 ml Laboratory Tests 11/14/20 13:06: POC Whole Blood Glucose [Pending] 11/14/20 18:25: POC Whole Blood Glucose 297H 11/14/20 20:23: POC Whole Blood Glucose 318H 11/15/20 04:46: White Blood Count 10.6, Red Blood Count 3.53L, Hemoglobin 10.9L, Hematocrit 33.1L, Mean Corpuscular Volume 94, Mean Corpuscular Hemoglobin 30.9, Mean Corpuscular Hemoglobin Concent 32.9, Red Cell Distribution Width 14.6, Platelet Count 166, Mean Platelet Volume 8.6, Neutrophils (%) (Auto) , Lymphocytes (%) (Auto) , Monocytes (%) (Auto) , Eosinophils (%) (Auto) , Basophils (%) (Auto) , Differential Total Cells Counted 100, Neutrophils % (Manual) 97H, Lymphocytes % (Manual) 2L, Monocytes % (Manual) 1, Eosinophils % (Manual) 0, Basophils % (Manual) 0, Band Neutrophils 0, Platelet Estimate Adequate, Platelet Morphology Normal, Anisocytosis 1+, Sodium Level 148H, Potassium Level 3.7, Chloride Level 114H, Carbon Dioxide Level 29, Anion Gap 5, Blood Urea Nitrogen 135H, Creatinine 2.0H, Estimat Glomerular Filtration Rate 32.0, Glucose Level 354H, Calcium Level 7.5L, Phosphorus Level 3.8, Magnesium Level 2.7H, Total Bilirubin 0.8, Aspartate Amino Transf (AST/SGOT) 51H, Alanine Aminotransferase (ALT/SGPT) 38, Alkaline Phosphatase 171H, Total Protein 5.1L, Albumin 1.1L, Globulin 4.0, Albumin/Globulin Ratio 0.3L Height (Feet): 6 Height (Inches): 1.00 Weight (Pounds): 190 Kulwant Hong M.D. Nov 15, 2020 10:26
--- NOTE | 2020-11-15 11:47 | Surgery Progress Note ---
Surgery Progress Note Subjective Procedure Performed Right femoral central venous catheter insertion Additional Comments ill appearing no n/v labs noted on support Objective Last 24 Hour Vital Signs Date Time Temp Pulse Resp B/P (MAP) Pulse Ox O2 Delivery O2 Flow Rate FiO2 11/15/20 10:45 88 28 100 11/15/20 10:00 93 27 105/42 (63) 96 11/15/20 09:00 94 21 127/47 (73) 100 11/15/20 08:24 90 118/51 11/15/20 08:00 90 11/15/20 08:00 Mechanical Ventilator 11/15/20 08:00 98.5 90 25 118/51 (73) 100 11/15/20 07:56 85 11/15/20 07:00 84 26 124/41 (68) 100 11/15/20 06:59 94 22 100 11/15/20 06:00 92 23 135/50 (78) 96 11/15/20 05:00 89 21 129/53 (78) 100 11/15/20 04:00 97.6 80 24 105/43 (63) 100 11/15/20 04:00 81 11/15/20 04:00 90 11/15/20 04:00 Mechanical Ventilator 11/15/20 03:00 90 24 114/37 (62) 100 11/15/20 02:31 87 28 100 11/15/20 02:00 90 23 129/55 (79) 99 11/15/20 01:00 74 30 111/54 (73) 100 11/15/20 00:14 90 11/15/20 00:00 96 11/15/20 00:00 97.5 81 28 129/60 (83) 98 11/15/20 00:00 Mechanical Ventilator 11/14/20 23:22 104 30 100 11/14/20 23:20 104 123/37 11/14/20 23:00 104 27 123/37 (65) 11/14/20 22:45 114 27 135/56 (82) 95 11/14/20 22:00 119 27 169/64 (99) 92 11/14/20 21:00 119 28 178/64 (102) 92 11/14/20 20:00 Mechanical Ventilator 11/14/20 20:00 90 11/14/20 20:00 127 11/14/20 20:00 111 24 144/65 (91) 88 11/14/20 19:30 109 25 90 11/14/20 19:00 123 23 145/64 (91) 92 11/14/20 18:00 111 19 142/55 (84) 96 11/14/20 17:00 86 20 139/40 (73) 96 11/14/20 16:00 98.8 78 21 103/52 (69) 94 11/14/20 16:00 90 11/14/20 16:00 Mechanical Ventilator 11/14/20 16:00 111 11/14/20 15:41 87 19 90 11/14/20 15:00 79 21 109/44 (65) 96 11/14/20 14:00 71 20 91 11/14/20 13:00 98.2 88 18 174/48 (90) 94 11/14/20 12:45 90 11/14/20 12:00 74 13 161/42 (81) 98 11/14/20 12:00 Mechanical Ventilator 11/14/20 12:00 90 11/14/20 12:00 81 I&O Intake and Output 11/14/20 11/15/20 19:00 07:00 Intake Total 960.0 ml 1245 ml Output Total 367 ml 585 ml Balance 593.0 ml 660 ml Free Water 100 ml IV Total 660.0 ml 500 ml Tube Feeding 300 ml 645 ml Output Urine Total 367 ml 485 ml Stool Total 100 ml Dressing: saturated Cardiovascular: RSR Respiratory: decreased breath sounds Abdomen: soft, non-tender, present bowel sounds, non-distended Extremities: edema, no tenderness, no cyanosis Laboratory Tests Test 11/14/20 13:06 11/14/20 18:25 11/14/20 20:23 11/15/20 04:46 POC Whole Blood Glucose Pending 297 MG/DL (74-106) H 318 MG/DL (74-106) H White Blood Count 10.6 K/UL (4.8-10.8) Red Blood Count 3.53 M/UL (4.70-6.10) L Hemoglobin 10.9 G/DL (14.2-18.0) L Hematocrit 33.1 % (42.0-52.0) L Mean Corpuscular Volume 94 FL (80-99) Mean Corpuscular Hemoglobin 30.9 PG (27.0-31.0) Mean Corpuscular Hemoglobin Concent 32.9 G/DL (32.0-36.0) Red Cell Distribution Width 14.6 % (11.6-14.8) Platelet Count 166 K/UL (150-450) Mean Platelet Volume 8.6 FL (6.5-10.1) Neutrophils (%) (Auto) % (45.0-75.0) Lymphocytes (%) (Auto) % (20.0-45.0) Monocytes (%) (Auto) % (1.0-10.0) Eosinophils (%) (Auto) % (0.0-3.0) Basophils (%) (Auto) % (0.0-2.0) Differential Total Cells Counted 100 Neutrophils % (Manual) 97 % (45-75) H Lymphocytes % (Manual) 2 % (20-45) L Monocytes % (Manual) 1 % (1-10) Eosinophils % (Manual) 0 % (0-3) Basophils % (Manual) 0 % (0-2) Band Neutrophils 0 % (0-8) Platelet Estimate Adequate Platelet Morphology Normal Anisocytosis 1+ Sodium Level 148 MMOL/L (136-145) H Potassium Level 3.7 MMOL/L (3.5-5.1) Chloride Level 114 MMOL/L (98-107) H Carbon Dioxide Level 29 MMOL/L (21-32) Anion Gap 5 mmol/L (5-15) Blood Urea Nitrogen 135 mg/dL (7-18) H Creatinine 2.0 MG/DL (0.55-1.30) H Estimat Glomerular Filtration Rate 32.0 mL/min (>60) Glucose Level 354 MG/DL (74-106) H Calcium Level 7.5 MG/DL (8.5-10.1) L Phosphorus Level 3.8 MG/DL (2.5-4.9) Magnesium Level 2.7 MG/DL (1.8-2.4) H Total Bilirubin 0.8 MG/DL (0.2-1.0) Aspartate Amino Transf (AST/SGOT) 51 U/L (15-37) H Alanine Aminotransferase (ALT/SGPT) 38 U/L (12-78) Alkaline Phosphatase 171 U/L (46-116) H Total Protein 5.1 G/DL (6.4-8.2) L Albumin 1.1 G/DL (3.4-5.0) L Globulin 4.0 g/dL Albumin/Globulin Ratio 0.3 (1.0-2.7) L Plan Problems: (1) ARDS (adult respiratory distress syndrome) Assessment & Plan: 84-year-old male who pressor insufficiency ARDS Covid on vent ET tube in place chest x-ray reviewed central line in place on sedation. Continue daily weaning trials. NG tube okay for diet tube feeds continue. Microbiology reviewed labs reviewed. Trend labs. IV fluids. Will follow with recommendations thank you for let me participate patient's care cxr stable on abx covid + cont abx cont f wean as tolerated DAILY ESTIMATED NEEDS: Needs based on Critcal care 82.4kg abw 22-28 kcals/kg 3316-7709 total kcals 1.2-2 g protein/kg 99-165 g total protein 20-25/ or per MD mL/kg 2243-9630 total fluid mLs NUTRITION DIAGNOSIS: Swallowing difficulty r/t respiratory status as evidenced by 84 y/o M adm w/ covid++, now orally intubated, NPO. ENTERAL NUTRITION RECOMMENDATIONS: VITAL 1.2 GOAL OF 65ml/hr x24 hrs to provide 1560ml, 1872 kcal, 117g pro, 1265ml free H2O - When hemodynamically stable, rec to start non oral feeds to meet est kcal and pro needs. - Start Vital 1.2 @35ml/hr for 6 hrs, advance as tolerated 10ml/hr q4-6 hrs to goal. - Flush per MD. HOB over 30 degrees ADDITIONAL RECOMMENDATIONS: 1) Maintain calibrated bed scale wts 2) Followed by end, monitor for hypoglycemia while NPO 3) Feed when hemodynamically stable, TF recs as above for critical care, carb control, high pro content to meet est needs 4) Re-evaluate TF w/ change in propofol rate-> current rate w/ TF's do NOT exceed est needs. (2) Hypoxemia (3) Renal failure (4) Elevated troponin (5) COVID-19 Assessment & Plan: ++ on abx tx per Tommie Teague Nov 15, 2020 11:47
--- NOTE | 2020-11-15 12:10 | NUR ---
NURSE NOTES: Accu check done with coverage of 8 units (261).
--- NOTE | 2020-11-15 12:48 | Pulmonology Progress Note ---
Subjective ROS Limited/Unobtainable: Yes Interval Events: remains intubated Constitutional: Denies: fever HEENT: Repors: no symptoms Respiratory: Reports: no symptoms Cardiovascular: Reports: no symptoms Gastrointestinal/Abdominal: Reports: no symptoms Allergies: Coded Allergies: No Known Allergies (Unverified , 11/06/20) Objective Last 24 Hour Vital Signs Date Time Temp Pulse Resp B/P (MAP) Pulse Ox O2 Delivery O2 Flow Rate FiO2 11/15/20 10:45 88 28 100 11/15/20 10:00 93 27 105/42 (63) 96 11/15/20 09:00 94 21 127/47 (73) 100 11/15/20 08:24 90 118/51 11/15/20 08:00 90 11/15/20 08:00 Mechanical Ventilator 11/15/20 08:00 98.5 90 25 118/51 (73) 100 11/15/20 07:56 85 11/15/20 07:00 84 26 124/41 (68) 100 11/15/20 06:59 94 22 100 11/15/20 06:00 92 23 135/50 (78) 96 11/15/20 05:00 89 21 129/53 (78) 100 11/15/20 04:00 97.6 80 24 105/43 (63) 100 11/15/20 04:00 81 11/15/20 04:00 90 11/15/20 04:00 Mechanical Ventilator 11/15/20 03:00 90 24 114/37 (62) 100 11/15/20 02:31 87 28 100 11/15/20 02:00 90 23 129/55 (79) 99 11/15/20 01:00 74 30 111/54 (73) 100 11/15/20 00:14 90 11/15/20 00:00 96 11/15/20 00:00 97.5 81 28 129/60 (83) 98 11/15/20 00:00 Mechanical Ventilator 11/14/20 23:22 104 30 100 11/14/20 23:20 104 123/37 11/14/20 23:00 104 27 123/37 (65) 11/14/20 22:45 114 27 135/56 (82) 95 11/14/20 22:00 119 27 169/64 (99) 92 11/14/20 21:00 119 28 178/64 (102) 92 11/14/20 20:00 Mechanical Ventilator 11/14/20 20:00 90 11/14/20 20:00 127 11/14/20 20:00 111 24 144/65 (91) 88 11/14/20 19:30 109 25 90 11/14/20 19:00 123 23 145/64 (91) 92 11/14/20 18:00 111 19 142/55 (84) 96 11/14/20 17:00 86 20 139/40 (73) 96 11/14/20 16:00 98.8 78 21 103/52 (69) 94 11/14/20 16:00 90 11/14/20 16:00 Mechanical Ventilator 11/14/20 16:00 111 11/14/20 15:41 87 19 90 11/14/20 15:00 79 21 109/44 (65) 96 11/14/20 14:00 71 20 91 11/14/20 13:00 98.2 88 18 174/48 (90) 94 Intake and Output 11/14/20 11/15/20 19:00 07:00 Intake Total 960.0 ml 1245 ml Output Total 367 ml 585 ml Balance 593.0 ml 660 ml Free Water 100 ml IV Total 660.0 ml 500 ml Tube Feeding 300 ml 645 ml Output Urine Total 367 ml 485 ml Stool Total 100 ml General Appearance: no acute distress HEENT: normocephalic Respiratory: chest wall non-tender, lungs clear Cardiovascular: normal peripheral pulses, normal rate Abdomen: normal bowel sounds Laboratory Tests 11/14/20 13:06: POC Whole Blood Glucose [Pending] 11/14/20 18:25: POC Whole Blood Glucose 297H 11/14/20 20:23: POC Whole Blood Glucose 318H 11/15/20 04:46: White Blood Count 10.6, Red Blood Count 3.53L, Hemoglobin 10.9L, Hematocrit 33.1L, Mean Corpuscular Volume 94, Mean Corpuscular Hemoglobin 30.9, Mean Corpuscular Hemoglobin Concent 32.9, Red Cell Distribution Width 14.6, Platelet Count 166, Mean Platelet Volume 8.6, Neutrophils (%) (Auto) , Lymphocytes (%) (Auto) , Monocytes (%) (Auto) , Eosinophils (%) (Auto) , Basophils (%) (Auto) , Differential Total Cells Counted 100, Neutrophils % (Manual) 97H, Lymphocytes % (Manual) 2L, Monocytes % (Manual) 1, Eosinophils % (Manual) 0, Basophils % (Manual) 0, Band Neutrophils 0, Platelet Estimate Adequate, Platelet Morphology Normal, Anisocytosis 1+, Sodium Level 148H, Potassium Level 3.7, Chloride Level 114H, Carbon Dioxide Level 29, Anion Gap 5, Blood Urea Nitrogen 135H, Creatinine 2.0H, Estimat Glomerular Filtration Rate 32.0, Glucose Level 354H, Calcium Level 7.5L, Phosphorus Level 3.8, Magnesium Level 2.7H, Total Bilirubin 0.8, Aspartate Amino Transf (AST/SGOT) 51H, Alanine Aminotransferase (ALT/SGPT) 38, Alkaline Phosphatase 171H, Total Protein 5.1L, Albumin 1.1L, Globulin 4.0, Albumin/Globulin Ratio 0.3L Current Medications Medications (Trade) Dose Ordered Sig/Violet Route PRN Reason Start Time Stop Time Status Last Admin Dose Admin Acetaminophen (Tylenol) 650 mg Q4H PRN GT Temp >100.5 11/12/20 11:00 12/12/20 10:44 Chlorhexidine Gluconate (Patt-Hex 2%) 1 applic DAILY@1999 TOPIC 11/09/20 20:00 02/07/21 19:59 11/14/20 20:35 Dextrose (Dextrose 50%) 25 ml Q30M PRN IV Hypoglycemia 11/06/20 20:00 02/04/21 19:59 Dextrose (Dextrose 50%) 50 ml Q30M PRN IV Hypoglycemia 11/06/20 20:00 02/04/21 19:59 Docusate Sodium (Colace) 100 mg TWICE A DAY GT 11/14/20 18:00 12/14/20 17:59 11/15/20 08:23 Enoxaparin Sodium (Lovenox) 40 mg Q24H SUBQ 11/07/20 21:00 02/05/21 20:59 11/14/20 20:35 Flumazenil (Romazicon) 0.2 mg NEEDED PRN IV Sedation reversal 11/06/20 20:00 Insulin Aspart (NovoLOG) EVERY 6 HOURS SUBQ 11/08/20 12:00 02/05/21 16:29 11/15/20 12:40 Insulin Detemir (Levemir) 14 units EVERY 12 HOURS SUBQ 11/13/20 09:00 02/05/21 20:59 11/15/20 08:51 Metoclopramide HCl (Reglan) 5 mg Q6HR IVP 11/14/20 12:26 12/14/20 12:25 11/15/20 12:26 Metoprolol Tartrate (Lopressor) 50 mg Q12HR ORAL 11/14/20 23:15 02/12/21 23:14 11/15/20 08:24 Naloxone HCl (Narcan) 0.4 mg NEEDED PRN IVP RR less than 6/min 11/06/20 20:00 02/04/21 19:59 Ondansetron HCl (Zofran) 4 mg Q6H PRN IVP Nausea & Vomiting 11/06/20 20:00 12/06/20 19:59 Pantoprazole (Protonix) 40 mg DAILY IVP 11/08/20 09:00 12/08/20 08:59 11/15/20 08:23 Piperacillin Sod/ Tazobactam Sod 3.375 gm/Sodium Chloride 110 ml @ 27.5 mls/hr Q8HR IVPB 11/14/20 14:00 11/21/20 13:59 11/15/20 05:32 Polyethylene Glycol (Miralax) 17 gm BEDTIME GT 11/14/20 21:00 12/14/20 20:59 11/14/20 20:36 Assessment/Plan Assessment/Plan IMPRESSION: 1. COVID-19 pneumonia. 2. Diabetes mellitus. 3. Hypertension. 4. Hyperkalemia. 5. CKD. 6. Metabolic acidosis. 7. Respiratory Failure; Acute Lung Injury 9. Change in mental status; will dc sedation; continue vent; may need head CT DISCUSSION: Continue broad-spectrum antibiotics. Continue vent/AC mode Currently FiO2 60%; PEEP 5 Endo tracheal tube adjusted; pt holding volumes on vent now Blood sugar control, Continue Decadron. Off propofol Check labs and ABG AM CXR unchanged Will consult neurology Jud Werner Omar Syed MD Nov 15, 2020 12:48
--- NOTE | 2020-11-15 13:18 | NUR ---
NURSE NOTES: Family of pt. called and updated [place]. He appreciated the update.
--- NOTE | 2020-11-15 13:24 | Infectious Diseases Prog Note ---
Assessment/Plan Assessment/Plan A: 1. COVID-19 pneumonia. 2. Positive blood culture likely contamination 3. Respiratory failure with hypoxia 4. Diabetes. 5. Hypertension. 6. Renal failure. 7. Acidosis PLAN: 1. Finished remdesivir course 2. continue Solu-Medrol. 3. Discontinue Zosyn. 4. Continue isolation. Subjective ROS Limited/Unobtainable: Yes Constitutional: Denies: fever Neurologic: Reports: other - on restraint Allergies: Coded Allergies: No Known Allergies (Unverified , 11/06/20) Objective Last 24 Hour Vital Signs Date Time Temp Pulse Resp B/P (MAP) Pulse Ox O2 Delivery O2 Flow Rate FiO2 11/15/20 13:00 106 21 162/68 (99) 100 11/15/20 12:00 Mechanical Ventilator 11/15/20 12:00 98.5 85 28 127/55 (79) 100 11/15/20 12:00 90 11/15/20 11:33 85 11/15/20 11:00 88 29 113/51 (71) 94 11/15/20 10:45 88 28 100 11/15/20 10:00 93 27 105/42 (63) 96 11/15/20 09:00 94 21 127/47 (73) 100 11/15/20 08:24 90 118/51 11/15/20 08:00 90 11/15/20 08:00 Mechanical Ventilator 11/15/20 08:00 98.5 90 25 118/51 (73) 100 11/15/20 07:56 85 11/15/20 07:00 84 26 124/41 (68) 100 11/15/20 06:59 94 22 100 11/15/20 06:00 92 23 135/50 (78) 96 11/15/20 05:00 89 21 129/53 (78) 100 11/15/20 04:00 97.6 80 24 105/43 (63) 100 11/15/20 04:00 81 11/15/20 04:00 90 11/15/20 04:00 Mechanical Ventilator 11/15/20 03:00 90 24 114/37 (62) 100 11/15/20 02:31 87 28 100 11/15/20 02:00 90 23 129/55 (79) 99 11/15/20 01:00 74 30 111/54 (73) 100 11/15/20 00:14 90 11/15/20 00:00 96 11/15/20 00:00 97.5 81 28 129/60 (83) 98 11/15/20 00:00 Mechanical Ventilator 11/14/20 23:22 104 30 100 11/14/20 23:20 104 123/37 11/14/20 23:00 104 27 123/37 (65) 11/14/20 22:45 114 27 135/56 (82) 95 11/14/20 22:00 119 27 169/64 (99) 92 11/14/20 21:00 119 28 178/64 (102) 92 11/14/20 20:00 Mechanical Ventilator 11/14/20 20:00 90 11/14/20 20:00 127 11/14/20 20:00 111 24 144/65 (91) 88 11/14/20 19:30 109 25 90 11/14/20 19:00 123 23 145/64 (91) 92 11/14/20 18:00 111 19 142/55 (84) 96 11/14/20 17:00 86 20 139/40 (73) 96 11/14/20 16:00 98.8 78 21 103/52 (69) 94 11/14/20 16:00 90 11/14/20 16:00 Mechanical Ventilator 11/14/20 16:00 111 11/14/20 15:41 87 19 90 11/14/20 15:00 79 21 109/44 (65) 96 11/14/20 14:00 71 20 91 Height (Feet): 6 Height (Inches): 1.00 Weight (Pounds): 190 HEENT: other - orally intubated Respiratory/Chest: other - on ventilator , KGG0=550% Cardiovascular: tachycardia Abdomen: soft, non tender Extremities: no edema Neurologic/Psychiatric: other - sleeping Laboratory Tests Test 11/14/20 18:25 11/14/20 20:23 11/15/20 04:46 POC Whole Blood Glucose 297 MG/DL (74-106) H 318 MG/DL (74-106) H White Blood Count 10.6 K/UL (4.8-10.8) Red Blood Count 3.53 M/UL (4.70-6.10) L Hemoglobin 10.9 G/DL (14.2-18.0) L Hematocrit 33.1 % (42.0-52.0) L Mean Corpuscular Volume 94 FL (80-99) Mean Corpuscular Hemoglobin 30.9 PG (27.0-31.0) Mean Corpuscular Hemoglobin Concent 32.9 G/DL (32.0-36.0) Red Cell Distribution Width 14.6 % (11.6-14.8) Platelet Count 166 K/UL (150-450) Mean Platelet Volume 8.6 FL (6.5-10.1) Neutrophils (%) (Auto) % (45.0-75.0) Lymphocytes (%) (Auto) % (20.0-45.0) Monocytes (%) (Auto) % (1.0-10.0) Eosinophils (%) (Auto) % (0.0-3.0) Basophils (%) (Auto) % (0.0-2.0) Differential Total Cells Counted 100 Neutrophils % (Manual) 97 % (45-75) H Lymphocytes % (Manual) 2 % (20-45) L Monocytes % (Manual) 1 % (1-10) Eosinophils % (Manual) 0 % (0-3) Basophils % (Manual) 0 % (0-2) Band Neutrophils 0 % (0-8) Platelet Estimate Adequate Platelet Morphology Normal Anisocytosis 1+ Sodium Level 148 MMOL/L (136-145) H Potassium Level 3.7 MMOL/L (3.5-5.1) Chloride Level 114 MMOL/L (98-107) H Carbon Dioxide Level 29 MMOL/L (21-32) Anion Gap 5 mmol/L (5-15) Blood Urea Nitrogen 135 mg/dL (7-18) H Creatinine 2.0 MG/DL (0.55-1.30) H Estimat Glomerular Filtration Rate 32.0 mL/min (>60) Glucose Level 354 MG/DL (74-106) H Calcium Level 7.5 MG/DL (8.5-10.1) L Phosphorus Level 3.8 MG/DL (2.5-4.9) Magnesium Level 2.7 MG/DL (1.8-2.4) H Total Bilirubin 0.8 MG/DL (0.2-1.0) Aspartate Amino Transf (AST/SGOT) 51 U/L (15-37) H Alanine Aminotransferase (ALT/SGPT) 38 U/L (12-78) Alkaline Phosphatase 171 U/L (46-116) H Total Protein 5.1 G/DL (6.4-8.2) L Albumin 1.1 G/DL (3.4-5.0) L Globulin 4.0 g/dL Albumin/Globulin Ratio 0.3 (1.0-2.7) L Current Medications Medications (Trade) Dose Ordered Sig/Violet Route PRN Reason Start Time Stop Time Status Last Admin Dose Admin Acetaminophen (Tylenol) 650 mg Q4H PRN GT Temp >100.5 11/12/20 11:00 12/12/20 10:44 Chlorhexidine Gluconate (Patt-Hex 2%) 1 applic DAILY@1999 TOPIC 11/09/20 20:00 02/07/21 19:59 11/14/20 20:35 Dextrose (Dextrose 50%) 25 ml Q30M PRN IV Hypoglycemia 11/06/20 20:00 02/04/21 19:59 Dextrose (Dextrose 50%) 50 ml Q30M PRN IV Hypoglycemia 11/06/20 20:00 02/04/21 19:59 Docusate Sodium (Colace) 100 mg TWICE A DAY GT 11/14/20 18:00 12/14/20 17:59 11/15/20 08:23 Enoxaparin Sodium (Lovenox) 40 mg Q24H SUBQ 11/07/20 21:00 02/05/21 20:59 11/14/20 20:35 Flumazenil (Romazicon) 0.2 mg NEEDED PRN IV Sedation reversal 11/06/20 20:00 Insulin Aspart (NovoLOG) EVERY 6 HOURS SUBQ 11/08/20 12:00 02/05/21 16:29 11/15/20 12:40 Insulin Detemir (Levemir) 14 units EVERY 12 HOURS SUBQ 11/13/20 09:00 02/05/21 20:59 11/15/20 08:51 Metoclopramide HCl (Reglan) 5 mg Q6HR IVP 11/14/20 12:26 12/14/20 12:25 11/15/20 12:26 Metoprolol Tartrate (Lopressor) 50 mg Q12HR ORAL 11/14/20 23:15 02/12/21 23:14 11/15/20 08:24 Naloxone HCl (Narcan) 0.4 mg NEEDED PRN IVP RR less than 6/min 11/06/20 20:00 02/04/21 19:59 Ondansetron HCl (Zofran) 4 mg Q6H PRN IVP Nausea & Vomiting 11/06/20 20:00 12/06/20 19:59 Pantoprazole (Protonix) 40 mg DAILY IVP 11/08/20 09:00 12/08/20 08:59 11/15/20 08:23 Piperacillin Sod/ Tazobactam Sod 3.375 gm/Sodium Chloride 110 ml @ 27.5 mls/hr Q8HR IVPB 11/14/20 14:00 11/21/20 13:59 11/15/20 05:32 Polyethylene Glycol (Miralax) 17 gm BEDTIME GT 11/14/20 21:00 12/14/20 20:59 11/14/20 20:36 Karson Cabrera MD Nov 15, 2020 13:24
--- NOTE | 2020-11-15 14:56 | General Progress Note ---
Subjective Date patient seen: Nov 15, 2020 ROS Limited/Unobtainable: Yes Allergies: Coded Allergies: No Known Allergies (Unverified , 11/06/20) Subjective Patient remains at 100% FiO2. On AC/VC. Vent settings reviewed. No significant change in mental status. Concern for GI bleed yesterday so GI consulted. ROS: unable to obtain due to ALOC Objective Last 24 Hour Vital Signs Date Time Temp Pulse Resp B/P (MAP) Pulse Ox O2 Delivery O2 Flow Rate FiO2 11/15/20 14:00 76 26 122/47 (72) 100 11/15/20 13:00 106 21 162/68 (99) 100 11/15/20 12:00 Mechanical Ventilator 11/15/20 12:00 98.5 85 28 127/55 (79) 100 11/15/20 12:00 90 11/15/20 11:33 85 11/15/20 11:00 88 29 113/51 (71) 94 11/15/20 10:45 88 28 100 11/15/20 10:00 93 27 105/42 (63) 96 11/15/20 09:00 94 21 127/47 (73) 100 11/15/20 08:24 90 118/51 11/15/20 08:00 90 11/15/20 08:00 Mechanical Ventilator 11/15/20 08:00 98.5 90 25 118/51 (73) 100 11/15/20 07:56 85 11/15/20 07:00 84 26 124/41 (68) 100 11/15/20 06:59 94 22 100 11/15/20 06:00 92 23 135/50 (78) 96 11/15/20 05:00 89 21 129/53 (78) 100 11/15/20 04:00 97.6 80 24 105/43 (63) 100 11/15/20 04:00 81 11/15/20 04:00 90 11/15/20 04:00 Mechanical Ventilator 11/15/20 03:00 90 24 114/37 (62) 100 11/15/20 02:31 87 28 100 11/15/20 02:00 90 23 129/55 (79) 99 11/15/20 01:00 74 30 111/54 (73) 100 11/15/20 00:14 90 11/15/20 00:00 96 11/15/20 00:00 97.5 81 28 129/60 (83) 98 11/15/20 00:00 Mechanical Ventilator 11/14/20 23:22 104 30 100 11/14/20 23:20 104 123/37 11/14/20 23:00 104 27 123/37 (65) 11/14/20 22:45 114 27 135/56 (82) 95 11/14/20 22:00 119 27 169/64 (99) 92 11/14/20 21:00 119 28 178/64 (102) 92 11/14/20 20:00 Mechanical Ventilator 11/14/20 20:00 90 11/14/20 20:00 127 11/14/20 20:00 111 24 144/65 (91) 88 11/14/20 19:30 109 25 90 11/14/20 19:00 123 23 145/64 (91) 92 11/14/20 18:00 111 19 142/55 (84) 96 11/14/20 17:00 86 20 139/40 (73) 96 11/14/20 16:00 98.8 78 21 103/52 (69) 94 11/14/20 16:00 90 11/14/20 16:00 Mechanical Ventilator 11/14/20 16:00 111 11/14/20 15:41 87 19 90 11/14/20 15:00 79 21 109/44 (65) 96 Intake and Output 11/14/20 11/15/20 19:00 07:00 Intake Total 960.0 ml 1245 ml Output Total 367 ml 585 ml Balance 593.0 ml 660 ml Free Water 100 ml IV Total 660.0 ml 500 ml Tube Feeding 300 ml 645 ml Output Urine Total 367 ml 485 ml Stool Total 100 ml Laboratory Tests 11/14/20 18:25: POC Whole Blood Glucose 297H 11/14/20 20:23: POC Whole Blood Glucose 318H 11/15/20 04:46: White Blood Count 10.6, Red Blood Count 3.53L, Hemoglobin 10.9L, Hematocrit 33.1L, Mean Corpuscular Volume 94, Mean Corpuscular Hemoglobin 30.9, Mean Corpuscular Hemoglobin Concent 32.9, Red Cell Distribution Width 14.6, Platelet Count 166, Mean Platelet Volume 8.6, Neutrophils (%) (Auto) , Lymphocytes (%) (Auto) , Monocytes (%) (Auto) , Eosinophils (%) (Auto) , Basophils (%) (Auto) , Differential Total Cells Counted 100, Neutrophils % (Manual) 97H, Lymphocytes % (Manual) 2L, Monocytes % (Manual) 1, Eosinophils % (Manual) 0, Basophils % (Manual) 0, Band Neutrophils 0, Platelet Estimate Adequate, Platelet Morphology Normal, Anisocytosis 1+, Sodium Level 148H, Potassium Level 3.7, Chloride Level 114H, Carbon Dioxide Level 29, Anion Gap 5, Blood Urea Nitrogen 135H, Creatinine 2.0H, Estimat Glomerular Filtration Rate 32.0, Glucose Level 354H, Calcium Level 7.5L, Phosphorus Level 3.8, Magnesium Level 2.7H, Total Bilirubin 0.8, Aspartate Amino Transf (AST/SGOT) 51H, Alanine Aminotransferase (ALT/SGPT) 38, Alkaline Phosphatase 171H, Total Protein 5.1L, Albumin 1.1L, Globulin 4.0, Albumin/Globulin Ratio 0.3L Height (Feet): 6 Height (Inches): 1.00 Weight (Pounds): 190 Objective Exam limited due to COVID status and to conserve PPE. Per discussion with RN. General: Male A&O x 0. intubated. No carolyn bleeding noted. HEENT: Normocephalic cephalic atraumatic, nares patent and no symmetrical, no tonsillar exudates, mucous membranes moist CV: Regular rate regular rhythm, no murmurs, rubs, or gallops Pulm: Lungs coarse breath sounds bilaterally. No wheezes, rhonchi, or rales GI: Soft, nontender, nondistended, bowel sounds present Neuro: Moving all extremities Ext: No lower extremity edema bilaterally Skin: no rashes lesions or ulcers Msk: Joints symmetrical in upper extremity and lower extremity bilaterally, no joint swelling. Lymph: No lymphadenopathy in upper extremity and lower extremity Assessment/Plan Status: stable Assessment/Plan: 84 yo M w DM2, HTN, ? CKD admitted for Covid19 PNA with SAMEER # acute hypoxemia Resp failure 2/2 covid PNA - higher FiO2 today > s/p intubation on 11/07/20. EtTube out on 11/11 but re-inserted # Covid PNA # Lactic acid elevation # elevated D dimer # Trop elevated - Patient full code. See Advanced care plan note. Will continue discussions as patient progresses - s/p IVF bolus in ED, will keep lung dry as much as possible - s/p decadron 6mg iv daily - solumedrol Q12hr (11/08 - ) - Remdesivir per ID (11/09 - ) - azithromycin (11/08 - ) - Vancomycin (11/09 - ) - Zosyn (11/09 - ) - Abx per ID - pulm consult: Chasity - ID consult: Steven - Aneesh consult - trend ABG: reviewed - Continue Ac/VC - propofol for sedation - monitor triglycerides - Wean vent as tolerated - s/p NG tube 11/07 for meds. start tube feeding - IV fluids per nephro #S. hominis bacteremia, Contaminant? Defer to ID #Bilateral superimposed pneumonia - ID consulted: Dr. Harris - Follow surveilance cultures - Vanc per pharm (11/08 - ) - Zosyn (11/08 - ) #Anemia - concern for GI bleed - Hgb stable - GI consult Dr. Saavedra # Malnutrition #HTN, current normotensive - Tube feedings - Appreciate surgery recs - D/w RN # DM2 uncontrolled #hyperglycemia - detemir 10 units BID - continue SSI - accuchecks - hypoglycemia protocol # SAMEER vs. SAMEER on CKD, likely prerenal # Dehydration - renal consult - Gentle IV fluids - i/o monitor, montilla cath FENPPX DVTPPX: lovenox GI PPX: protonix Fluids: per nephro Diet: NPO, tube feedings PT/OT: deferred Code status: Full code Dispo: SNF eventually. Guarded prognosis. Family aware Reason for Continued Hospitalization: Hypoxia Time of my involvement, the patient's condition was critical with high potential for and/or physiologic deterioration secondary to acute hypoxic respiratory failure as delineated in the note above. On the above date of service, I spent a total of 37 minutes in the ICU evaluating, managing, and providing critical care services to this patient, including time spent documenting these activities, counseling patient/family, and coordinating care. Critical care services performed include: -Telemetry review -Hemodynamic measurement interpretation -Laboratory data review and interpretation -Vent setting reviewed, management -Discussion of care plans with patient, family, and/or surrogate decision makers -Discussion of patient's care with medical team, surgical team, and/or consulting service -Decision to obtain further radiologic evaluation, after consideration of the risk/benefit ratio -Review of most recent microbiology results assessment and modification of antimicrobial coverage -Discussion of patient's CODE STATUS and further advancement towards the ultimate goals of care. Plan outlined above discussed with patient/family, [employer]ION[employer] E[employer]OMIST, ICU team, and involved physician/consultants. Time of note not necessarily time patient was seen Rudy Poole M.D. Nov 15, 2020 14:56
--- NOTE | 2020-11-15 15:31 | NUR ---
NURSE NOTES: Seen by Dr. Poole with [facility].
--- NOTE | 2020-11-15 17:14 | NUR ---
NURSE NOTES: Sponge bath given. Turned and repositioned. Pt. remain stable.
--- NOTE | 2020-11-15 19:30 | NUR ---
NURSE NOTES: Received pt with eyes close, but arousable to tactile stimulation, Orally intubated, aon ac mode SR -ST low 100s bp stable afebrile, pt desat 88-90%, tolerating fdg at this this time. HOB kept elevated on aspiration precaution.Both pts hands are swollen secondary to fluid retention,,montilla to gravity with moderate amt of ishmael yellow urine. Monitor I and O . monitor lytes. Will continue to monitor.
--- NOTE | 2020-11-15 19:35 | NUR ---
NURSE HAND-OFF REPORT: Latest Vital Signs: Temperature 98.3 , Pulse 108 , B/P 170 /68 , Respiratory Rate 21 , O2 SAT 93 , Mechanical Ventilator, O2 Flow Rate . Vital Sign Comment: WNL EKG Rhythm: Sinus Tachycardia Rhythm change?: N Notified?: Marty Jerez MD Response: Order Received& Read Back Latest Blackwell Fall Score: 50 Fall Risk: High Risk Safety Measures: Call light Within Reach, Bed Alarm Zone 1, Side Rails Side Rails x3, Bed position Low and Locked. Fall Precautions: Door Sign Report given to GAVI Braswell RN.
[2020-11-15] MEDS: Dyna-Hex 2% Top Sol 2oz TOPIC SCH (20:20)
[2020-11-15] MEDS: Miralax 17gm pkt GT SCH (21:18)
[2020-11-15] MEDS: Enoxaparin 40mg Inj SUBQ SCH (21:22)
--- NOTE | 2020-11-15 21:30 | NUR ---
NURSE NOTES: repositioned for comfort. Also pt was bieng suctioned.
--- NOTE | 2020-11-15 23:00 | NUR ---
NURSE NOTES: Complete bed bath with bed changed was done. 02 sat transferred to different sites to get good reading.
--- NOTE | 2020-11-15 23:30 | NUR ---
NURSE NOTES: 02 sat >95% at this time. No resp. distress noted.
[2020-11-16] VITALS (34 sets, daily range): BP systolic 83–152; BP diastolic 37–90
--- NOTE | 2020-11-16 00:15 | NUR ---
NURSE HAND-OFF REPORT: Latest Vital Signs: Temperature 98.4 , Pulse 106 , B/P 104 /39 , Respiratory Rate 20 , O2 SAT 97 , Mechanical Ventilator, O2 Flow Rate . Vital Sign Comment: EKG Rhythm: Sinus Rhythm Rhythm change?: MD Notified?: Marty Jerez MD Response: Order Received& Read Back Latest Blackwell Fall Score: 50 Fall Risk: High Risk Safety Measures: Call light Within Reach, Bed Alarm Zone 1, Side Rails Side Rails x3, Bed position Low and Locked. Fall Precautions: Door Sign Report given to Darwin HOWELL.
[2020-11-16] MEDS: Metoclopramide 10mg/2ml Inj IVP SCH ×4 (00:27→17:05)
[2020-11-16] MEDS: NovoLOG Insulin Flexpen SUBQ SCH ×4 (00:28→17:30)
--- NOTE | 2020-11-16 01:12 | NUR ---
NURSE NOTES: Report received from LYNDA Parisi. Observed pt lying in the bed. No acute distress noted at this time. SR on monitor tech. ETT, AC 16/600/100%/5, no sob, saturating at 96% at this time. OGT intact, running Vital AF at 65cc/hr, no residual noted, flushing well. Accu check done, blood sugar 260 noted, covered. F/C intact. R femoral TLC, intact, TKO noted. Bed in the lowest position. Side rails up x3. Will continue to monitor.
--- NOTE | 2020-11-16 03:00 | NUR ---
NURSE NOTES: No acute distress noted at this time. ST on radiation monitor. No changes in vent setting AC 16/600/100%/5, saturating at 96%. Tolerating feeding. Reposition done. Oral care given. Will continue to monitor.
[2020-11-16] MEDS: Acetaminophen 650mg/20.3ml GT PRN ×2 (05:42→11:08)
--- NOTE | 2020-11-16 05:42 | NUR ---
NURSE NOTES: noted pt having fever of 100.9 at this time; prn med given and cooling measures done. Will continue to monitor .
--- NOTE | 2020-11-16 07:18 | NUR ---
NURSE HAND-OFF REPORT: Noted pt having fever at 0500, prn med given, cooling measures done. Tolerating vent setting at AC16/600/100%/5, saturating at 100%. Latest Vital Signs: Temperature 99.8 , Pulse 110 , B/P 114 /55 , Respiratory Rate 28 , O2 SAT 93 , Mechanical Ventilator, O2 Flow Rate . Vital Sign Comment: [] EKG Rhythm: Sinus Tachycardia Rhythm change?: N MD Notified?: Marty Jerez MD Response: Order Received& Read Back Latest Blackwell Fall Score: 50 Fall Risk: High Risk Safety Measures: Call light Within Reach, Bed Alarm Zone 1, Side Rails Side Rails x3, Bed position Low and Locked. Fall Precautions: Door Sign Report given to LYNDA Velasquez.
--- NOTE | 2020-11-16 07:30 | NUR ---
NURSE NOTES: Received report from LYNDA Francis. The patient is resting on the bed without acute distress or shortness of breath. The patient is opening eyes with oral suction, making upper and lower extremities movement. The patient is opening eyes but eyes are not tracking. SR to ST on the environmental monitoring specialist. The patient is orally intubated on following setting and oxygen saturation is 100%: ETT 7.5, Lip line @ 25, AC 16, TV 600, PEEP 5, and FiO2 100%. The patient has OGT that is in the right place and running Vital AF 1.2 @ 65mL/hr per order and no residual noted. Douglas intact and draining by gravity but relatively low UOP noted. The patient has R Femoral TLC that is intact and patent and kept in TKO. No skin issue noted and prophylactic optifoam on the jarrod area. The patient's bed in the lowest position, call light in reach, and fall and aspiration precaution reinforced. IV site intact and patent. Will follow up the order and lab. Will closely monitor the patient. Will continue plan of care.
--- NOTE | 2020-11-16 08:00 | NUR ---
NURSE NOTES: Initial nursing assessment done. Initial vital signs taken. The patient is stable at this time. Will continue plan of care.
--- NOTE | 2020-11-16 08:50 | Infectious Diseases Prog Note ---
Assessment/Plan Assessment/Plan A: 1. COVID-19 pneumonia. 2. Positive blood culture likely contamination 3. Respiratory failure with hypoxia 4. Diabetes. 5. Hypertension. 6. Renal failure. 7. Acidosis PLAN: 1. Finished remdesivir course 2. Finished Solu-Medrol course 3. Continue isolation. Subjective ROS Limited/Unobtainable: Yes Constitutional: Reports: fever, other - Qr=149.9 Neurologic: Reports: other - on restraint Allergies: Coded Allergies: No Known Allergies (Unverified , 11/06/20) Objective Last 24 Hour Vital Signs Date Time Temp Pulse Resp B/P (MAP) Pulse Ox O2 Delivery O2 Flow Rate FiO2 11/16/20 07:18 107 26 100 11/16/20 07:00 110 28 114/55 (74) 11/16/20 06:12 99.8 11/16/20 06:00 110 27 111/43 (65) 11/16/20 05:00 100.9 113 29 123/52 (75) 11/16/20 04:00 100 11/16/20 04:00 Mechanical Ventilator 11/16/20 04:00 110 11/16/20 04:00 119 26 137/62 (87) 11/16/20 03:00 114 26 128/50 (76) 11/16/20 02:00 110 22 128/68 (88) 11/16/20 01:40 106 20 100 11/16/20 01:00 81 28 118/56 (76) 93 11/16/20 00:00 98.4 84 24 104/39 (60) 97 11/16/20 00:00 100 11/16/20 00:00 Mechanical Ventilator 11/16/20 00:00 105 11/15/20 23:00 81 32 99/38 (58) 93 11/15/20 22:22 114 26 100 11/15/20 22:00 96 31 120/57 (78) 87 11/15/20 21:18 126 156/83 11/15/20 21:00 128 26 156/83 (107) 88 11/15/20 20:00 Mechanical Ventilator 11/15/20 20:00 Mechanical Ventilator 11/15/20 20:00 110 11/15/20 20:00 98.0 122 25 152/65 (94) 91 11/15/20 20:00 100 11/15/20 19:25 122 23 100 11/15/20 19:00 108 21 170/68 (102) 93 11/15/20 18:00 97 24 154/53 (86) 91 11/15/20 17:00 97 23 150/57 (88) 100 11/15/20 16:00 98.3 88 23 128/49 (75) 94 11/15/20 16:00 Mechanical Ventilator 11/15/20 16:00 95 11/15/20 16:00 90 11/15/20 15:00 80 29 148/56 (86) 100 11/15/20 14:52 86 18 100 11/15/20 14:00 76 26 122/47 (72) 100 11/15/20 13:00 106 21 162/68 (99) 100 11/15/20 12:00 Mechanical Ventilator 11/15/20 12:00 98.5 85 28 127/55 (79) 100 11/15/20 12:00 90 11/15/20 11:33 85 11/15/20 11:00 88 29 113/51 (71) 94 11/15/20 10:45 88 28 100 11/15/20 10:00 93 27 105/42 (63) 96 11/15/20 09:00 94 21 127/47 (73) 100 Height (Feet): 6 Height (Inches): 1.00 Weight (Pounds): 190 HEENT: other - orally intubated, Respiratory/Chest: other - on Ventilator, [id number]=998% Cardiovascular: tachycardia Abdomen: soft, non tender Neurologic/Psychiatric: other - obtunded Laboratory Tests Test 11/15/20 21:28 POC Whole Blood Glucose 218 MG/DL (74-106) H Current Medications Medications (Trade) Dose Ordered Sig/Violet Route PRN Reason Start Time Stop Time Status Last Admin Dose Admin Acetaminophen (Tylenol) 650 mg Q4H PRN GT Temp >100.5 11/12/20 11:00 12/12/20 10:44 11/16/20 05:42 Chlorhexidine Gluconate (Patt-Hex 2%) 1 applic DAILY@1999 TOPIC 11/09/20 20:00 02/07/21 19:59 11/15/20 20:20 Dextrose (Dextrose 50%) 25 ml Q30M PRN IV Hypoglycemia 11/06/20 20:00 02/04/21 19:59 Dextrose (Dextrose 50%) 50 ml Q30M PRN IV Hypoglycemia 11/06/20 20:00 02/04/21 19:59 Docusate Sodium (Colace) 100 mg TWICE A DAY GT 11/14/20 18:00 12/14/20 17:59 11/15/20 08:23 Enoxaparin Sodium (Lovenox) 40 mg Q24H SUBQ 11/07/20 21:00 02/05/21 20:59 11/15/20 21:22 Flumazenil (Romazicon) 0.2 mg NEEDED PRN IV Sedation reversal 11/06/20 20:00 Insulin Aspart (NovoLOG) EVERY 6 HOURS SUBQ 11/08/20 12:00 02/05/21 16:29 11/16/20 05:41 Insulin Detemir (Levemir) 14 units EVERY 12 HOURS SUBQ 11/13/20 09:00 02/05/21 20:59 11/15/20 21:30 Metoclopramide HCl (Reglan) 5 mg Q6HR IVP 11/14/20 12:26 12/14/20 12:25 11/16/20 05:40 Metoprolol Tartrate (Lopressor) 50 mg Q12HR ORAL 11/14/20 23:15 02/12/21 23:14 11/15/20 21:18 Naloxone HCl (Narcan) 0.4 mg NEEDED PRN IVP RR less than 6/min 11/06/20 20:00 02/04/21 19:59 Ondansetron HCl (Zofran) 4 mg Q6H PRN IVP Nausea & Vomiting 11/06/20 20:00 12/06/20 19:59 Pantoprazole (Protonix) 40 mg DAILY IVP 11/08/20 09:00 12/08/20 08:59 11/15/20 08:23 Polyethylene Glycol (Miralax) 17 gm BEDTIME GT 11/14/20 21:00 12/14/20 20:59 11/15/20 21:18 Karson Cabrera MD Nov 16, 2020 08:50
--- NOTE | 2020-11-16 09:00 | NUR ---
NURSE NOTES: Dr. Gaspar at the bedside assessed the patient. Dr. Gaspar was notified regarding abnormal lab. Dr. Gaspar ordered ABG and non-violent restraints for safety. Will closely monitor the patient. Will continue plan of care.
[2020-11-16] MEDS: Metoprolol Tartrate 50mg tab ORAL SCH ×2 (09:01→21:00)
[2020-11-16] MEDS: Docusate 100mg/10ml Liq GT SCH ×2 (09:01→17:05)
[2020-11-16] MEDS: Pantoprazole Inj IVP SCH (09:01)
[2020-11-16] MEDS: Levemir Flexpen SUBQ SCH ×2 (09:23→21:38)
--- NOTE | 2020-11-16 10:00 | NUR ---
NURSE NOTES: Morning medications per order. The patient tolerated well. Will closely monitor the patient. Will continue plan of care.
--- NOTE | 2020-11-16 10:19 | General Progress Note ---
Subjective ROS Limited/Unobtainable: No Allergies: Coded Allergies: No Known Allergies (Unverified , 11/06/20) Objective Last 24 Hour Vital Signs Date Time Temp Pulse Resp B/P (MAP) Pulse Ox O2 Delivery O2 Flow Rate FiO2 11/16/20 09:01 112 139/67 11/16/20 07:18 107 26 100 11/16/20 07:00 110 28 114/55 (74) 11/16/20 06:12 99.8 11/16/20 06:00 110 27 111/43 (65) 11/16/20 05:00 100.9 113 29 123/52 (75) 11/16/20 04:00 100 11/16/20 04:00 Mechanical Ventilator 11/16/20 04:00 110 11/16/20 04:00 119 26 137/62 (87) 11/16/20 03:00 114 26 128/50 (76) 11/16/20 02:00 110 22 128/68 (88) 11/16/20 01:40 106 20 100 11/16/20 01:00 81 28 118/56 (76) 93 11/16/20 00:00 98.4 84 24 104/39 (60) 97 11/16/20 00:00 100 11/16/20 00:00 Mechanical Ventilator 11/16/20 00:00 105 11/15/20 23:00 81 32 99/38 (58) 93 11/15/20 22:22 114 26 100 11/15/20 22:00 96 31 120/57 (78) 87 11/15/20 21:18 126 156/83 11/15/20 21:00 128 26 156/83 (107) 88 11/15/20 20:00 Mechanical Ventilator 11/15/20 20:00 Mechanical Ventilator 11/15/20 20:00 110 11/15/20 20:00 98.0 122 25 152/65 (94) 91 11/15/20 20:00 100 11/15/20 19:25 122 23 100 11/15/20 19:00 108 21 170/68 (102) 93 11/15/20 18:00 97 24 154/53 (86) 91 11/15/20 17:00 97 23 150/57 (88) 100 11/15/20 16:00 98.3 88 23 128/49 (75) 94 11/15/20 16:00 Mechanical Ventilator 11/15/20 16:00 95 11/15/20 16:00 90 11/15/20 15:00 80 29 148/56 (86) 100 11/15/20 14:52 86 18 100 11/15/20 14:00 76 26 122/47 (72) 100 11/15/20 13:00 106 21 162/68 (99) 100 11/15/20 12:00 Mechanical Ventilator 11/15/20 12:00 98.5 85 28 127/55 (79) 100 11/15/20 12:00 90 11/15/20 11:33 85 11/15/20 11:00 88 29 113/51 (71) 94 11/15/20 10:45 88 28 100 Intake and Output 11/15/20 11/16/20 19:00 07:00 Intake Total 1080 ml 1030 ml Output Total 481 ml 620 ml Balance 599 ml 410 ml Free Water 300 ml 250 ml Tube Feeding 780 ml 780 ml Output Urine Total 480 ml 620 ml Stool Total 1 ml # Bowel Movements 1 Laboratory Tests 11/15/20 21:28: POC Whole Blood Glucose 218H 11/16/20 09:15: POC Whole Blood Glucose 244H Height (Feet): 6 Height (Inches): 1.00 Weight (Pounds): 190 General Appearance: no apparent distress EENT: normal ENT inspection Neck: supple Cardiovascular: normal rate Respiratory/Chest: decreased breath sounds Abdomen: normal bowel sounds, non tender, soft Extremities: non-tender Assessment/Plan Problem List: (1) COVID-19 ICD Codes: U07.1 - COVID-19 SNOMED: 882183300 (2) Elevated troponin ICD Codes: R77.8 - Other specified abnormalities of plasma proteins SNOMED: 119404171, 667138219, 696070364 (3) Renal failure ICD Codes: N19 - Unspecified kidney failure SNOMED: 31706886, 68471825 (4) Hypoxemia ICD Codes: R09.02 - Hypoxemia SNOMED: 577657792, 23395640 (5) ARDS (adult respiratory distress syndrome) ICD Codes: J80 - Acute respiratory distress syndrome SNOMED: 95335450, 34748795 Status: stable Assessment/Plan[facility] cov[facility] isolation Benoit Saavedra MD Nov 16, 2020 10:19
--- NOTE | 2020-11-16 11:00 | NUR ---
NURSE NOTES: Dr. Gaspar was notified regarding abnormal Abg. No new order yet. Will closely monitor the patient. Will continue plan of care.
--- NOTE | 2020-11-16 11:48 | Nephrology Progress Note ---
Assessment/Plan Plan #SAMEER on CKD- likely pre-renal azotemia in the setting of sepsis #hypnatremia # acute hypoxemia Resp failure 2/2 covid PNA requiring BIPAP # Covid PNA # Lactic acid elevation # Malnutrition #HTN, current normotensive # elevated D dimer # Trop elevated # DM2 uncontrolled - increase free water flushes 250cc q6hr - DC bicarb drip - intubated - monitor volume status - monitor ABG - monitor BMP, mag and phos daily - strict I&Os - daily weights - echo - defer renal US - antibiotic per ID time spent 65min Subjective ROS Limited/Unobtainable: Yes Subjective intubated Cr fluctuating sodium remains elevated will increasefree water flushes Objective Objective Last 24 Hour Vital Signs Date Time Temp Pulse Resp B/P (MAP) Pulse Ox O2 Delivery O2 Flow Rate FiO2 11/16/20 09:01 112 139/67 11/16/20 07:18 107 26 100 11/16/20 07:00 110 28 114/55 (74) 11/16/20 06:12 99.8 11/16/20 06:00 110 27 111/43 (65) 11/16/20 05:00 100.9 113 29 123/52 (75) 11/16/20 04:00 100 11/16/20 04:00 Mechanical Ventilator 11/16/20 04:00 110 11/16/20 04:00 119 26 137/62 (87) 11/16/20 03:00 114 26 128/50 (76) 11/16/20 02:00 110 22 128/68 (88) 11/16/20 01:40 106 20 100 11/16/20 01:00 81 28 118/56 (76) 93 11/16/20 00:00 98.4 84 24 104/39 (60) 97 11/16/20 00:00 100 11/16/20 00:00 Mechanical Ventilator 11/16/20 00:00 105 11/15/20 23:00 81 32 99/38 (58) 93 11/15/20 22:22 114 26 100 11/15/20 22:00 96 31 120/57 (78) 87 11/15/20 21:18 126 156/83 11/15/20 21:00 128 26 156/83 (107) 88 11/15/20 20:00 Mechanical Ventilator 11/15/20 20:00 Mechanical Ventilator 11/15/20 20:00 110 11/15/20 20:00 98.0 122 25 152/65 (94) 91 11/15/20 20:00 100 11/15/20 19:25 122 23 100 11/15/20 19:00 108 21 170/68 (102) 93 11/15/20 18:00 97 24 154/53 (86) 91 11/15/20 17:00 97 23 150/57 (88) 100 11/15/20 16:00 98.3 88 23 128/49 (75) 94 11/15/20 16:00 Mechanical Ventilator 11/15/20 16:00 95 11/15/20 16:00 90 11/15/20 15:00 80 29 148/56 (86) 100 11/15/20 14:52 86 18 100 11/15/20 14:00 76 26 122/47 (72) 100 11/15/20 13:00 106 21 162/68 (99) 100 11/15/20 12:00 Mechanical Ventilator 11/15/20 12:00 98.5 85 28 127/55 (79) 100 11/15/20 12:00 90 Intake and Output 11/15/20 11/16/20 19:00 07:00 Intake Total 1080 ml 1030 ml Output Total 481 ml 620 ml Balance 599 ml 410 ml Free Water 300 ml 250 ml Tube Feeding 780 ml 780 ml Output Urine Total 480 ml 620 ml Stool Total 1 ml # Bowel Movements 1 Laboratory Tests 11/15/20 21:28: POC Whole Blood Glucose 218H 11/16/20 09:15: POC Whole Blood Glucose 244H 11/16/20 10:31: Arterial Blood pH 7.407, Arterial Blood Partial Pressure CO2 44.4, Arterial Blood Partial Pressure O2 59.2L, Arterial Blood HCO3 27.3H, Arterial Blood Oxygen Saturation 89.5*L, Arterial Blood Base Excess 2.2H, Jonathan Test Positive Height (Feet): 6 Height (Inches): 1.00 Weight (Pounds): 190 Kulwant Hong M.D. Nov 16, 2020 11:48
--- NOTE | 2020-11-16 12:30 | NUR ---
NURSE NOTES: Dr. Hong was notified regarding abnormal lab including Na 158, K 5.0, BUN 145, Cr 1.5. ordered OGT free water flush 400mL Q4H. Will closely monitor the patient. Will continue plan of care.
[2020-11-16 13:13] LABS: CALCIUM 6.6 MG/DL (8.5-10.1); CREATININE 1.5 MG/DL (0.55-1.30)
--- NOTE | 2020-11-16 13:30 | NUR ---
NURSE NOTES: Dr. Hong and Dr. Gaspar were notified regarding the patient's hypotension w/ SBP 80s. Dr. Hong ordered 1/2NS 1L bolus. Will administer per order. Will continue plan of care.
--- NOTE | 2020-11-16 13:38 | Pulmonology Progress Note ---
Subjective ROS Limited/Unobtainable: Yes Interval Events: More awake today. Constitutional: Reports: fever, other - Ac=183.9 HEENT: Repors: no symptoms Respiratory: Reports: no symptoms Cardiovascular: Reports: no symptoms Gastrointestinal/Abdominal: Reports: no symptoms Allergies: Coded Allergies: No Known Allergies (Unverified , 11/06/20) Objective Last 24 Hour Vital Signs Date Time Temp Pulse Resp B/P (MAP) Pulse Ox O2 Delivery O2 Flow Rate FiO2 11/16/20 12:00 103 11/16/20 12:00 100 11/16/20 11:38 99.3 11/16/20 09:01 112 139/67 11/16/20 08:00 104 11/16/20 08:00 100 11/16/20 07:18 107 26 100 11/16/20 07:00 110 28 114/55 (74) 11/16/20 06:12 99.8 11/16/20 06:00 110 27 111/43 (65) 11/16/20 05:00 100.9 113 29 123/52 (75) 11/16/20 04:00 100 11/16/20 04:00 Mechanical Ventilator 11/16/20 04:00 110 11/16/20 04:00 119 26 137/62 (87) 11/16/20 03:00 114 26 128/50 (76) 11/16/20 02:00 110 22 128/68 (88) 11/16/20 01:40 106 20 100 11/16/20 01:00 81 28 118/56 (76) 93 11/16/20 00:00 98.4 84 24 104/39 (60) 97 11/16/20 00:00 100 11/16/20 00:00 Mechanical Ventilator 11/16/20 00:00 105 11/15/20 23:00 81 32 99/38 (58) 93 11/15/20 22:22 114 26 100 11/15/20 22:00 96 31 120/57 (78) 87 11/15/20 21:18 126 156/83 11/15/20 21:00 128 26 156/83 (107) 88 11/15/20 20:00 Mechanical Ventilator 11/15/20 20:00 Mechanical Ventilator 11/15/20 20:00 110 11/15/20 20:00 98.0 122 25 152/65 (94) 91 11/15/20 20:00 100 11/15/20 19:25 122 23 100 11/15/20 19:00 108 21 170/68 (102) 93 11/15/20 18:00 97 24 154/53 (86) 91 11/15/20 17:00 97 23 150/57 (88) 100 11/15/20 16:00 98.3 88 23 128/49 (75) 94 11/15/20 16:00 Mechanical Ventilator 11/15/20 16:00 95 11/15/20 16:00 90 11/15/20 15:00 80 29 148/56 (86) 100 11/15/20 14:52 86 18 100 11/15/20 14:00 76 26 122/47 (72) 100 Intake and Output 11/15/20 11/16/20 19:00 07:00 Intake Total 1080 ml 1030 ml Output Total 481 ml 620 ml Balance 599 ml 410 ml Free Water 300 ml 250 ml Tube Feeding 780 ml 780 ml Output Urine Total 480 ml 620 ml Stool Total 1 ml # Bowel Movements 1 General Appearance: no acute distress HEENT: normocephalic Respiratory: chest wall non-tender, lungs clear Cardiovascular: normal peripheral pulses, normal rate Abdomen: normal bowel sounds Laboratory Tests 11/15/20 21:28: POC Whole Blood Glucose 218H 11/16/20 09:15: POC Whole Blood Glucose 244H 11/16/20 10:31: Arterial Blood pH 7.407, Arterial Blood Partial Pressure CO2 44.4, Arterial Blood Partial Pressure O2 59.2L, Arterial Blood HCO3 27.3H, Arterial Blood Oxygen Saturation 89.5*L, Arterial Blood Base Excess 2.2H, Jonathan Test Positive 11/16/20 11:12: POC Whole Blood Glucose 229H 11/16/20 12:18: Sodium Level 158H, Potassium Level 5.0, Chloride Level 125H, Carbon Dioxide Level 32, Anion Gap 1L, Blood Urea Nitrogen 145H, Creatinine 1.5H, Estimat Glomerular Filtration Rate 44.6, Glucose Level 284H, Calcium Level 6.6L, Phosphorus Level 3.7, Magnesium Level 2.5H Current Medications Medications (Trade) Dose Ordered Sig/Violet Route PRN Reason Start Time Stop Time Status Last Admin Dose Admin Acetaminophen (Tylenol) 650 mg Q4H PRN GT Temp >100.5 11/12/20 11:00 12/12/20 10:44 11/16/20 11:08 Chlorhexidine Gluconate (Patt-Hex 2%) 1 applic DAILY@1999 TOPIC 11/09/20 20:00 02/07/21 19:59 11/15/20 20:20 Dextrose (Dextrose 50%) 25 ml Q30M PRN IV Hypoglycemia 11/06/20 20:00 02/04/21 19:59 Dextrose (Dextrose 50%) 50 ml Q30M PRN IV Hypoglycemia 11/06/20 20:00 02/04/21 19:59 Docusate Sodium (Colace) 100 mg TWICE A DAY GT 11/14/20 18:00 12/14/20 17:59 11/16/20 09:01 Enoxaparin Sodium (Lovenox) 40 mg Q24H SUBQ 11/07/20 21:00 02/05/21 20:59 11/15/20 21:22 Flumazenil (Romazicon) 0.2 mg NEEDED PRN IV Sedation reversal 11/06/20 20:00 Insulin Aspart (NovoLOG) EVERY 6 HOURS SUBQ 11/08/20 12:00 02/05/21 16:29 11/16/20 11:22 Insulin Detemir (Levemir) 14 units EVERY 12 HOURS SUBQ 11/13/20 09:00 02/05/21 20:59 11/16/20 09:23 Metoclopramide HCl (Reglan) 5 mg Q6HR IVP 11/14/20 12:26 12/14/20 12:25 11/16/20 11:08 Metoprolol Tartrate (Lopressor) 50 mg Q12HR ORAL 11/14/20 23:15 02/12/21 23:14 11/16/20 09:01 Naloxone HCl (Narcan) 0.4 mg NEEDED PRN IVP RR less than 6/min 11/06/20 20:00 02/04/21 19:59 Ondansetron HCl (Zofran) 4 mg Q6H PRN IVP Nausea & Vomiting 11/06/20 20:00 12/06/20 19:59 Pantoprazole (Protonix) 40 mg DAILY IVP 11/08/20 09:00 12/08/20 08:59 11/16/20 09:01 Polyethylene Glycol (Miralax) 17 gm BEDTIME GT 11/14/20 21:00 12/14/20 20:59 11/15/20 21:18 Assessment/Plan Assessment/Plan IMPRESSION: 1. COVID-19 pneumonia. 2. Diabetes mellitus. 3. Hypertension. 4. Hyperkalemia. 5. CKD. 6. Metabolic acidosis. 7. Respiratory Failure; Acute Lung Injury 9. Change in mental status; will dc sedation; continue vent; may need head CT DISCUSSION: Continue broad-spectrum antibiotics. Continue vent/AC mode Currently FiO2 60%; PEEP 5 Endo tracheal tube adjusted; pt holding volumes on vent now Blood sugar control, Continue Decadron. Off propofol Check labs and ABG AM CXR unchanged Will consult neurology awaiting consultation.; Neurologically, more responsive today. Jud Werner Omar Syed MD Nov 16, 2020 13:38
[2020-11-16] MEDS: DOPamine 400mg/250ml 250 ML IV SCH ×2 (14:00→20:28)
--- NOTE | 2020-11-16 14:00 | NUR ---
NURSE NOTES: Dr. Gaspar ordered to change PEEP from [address] Gaspar ordered Dopamine in case of blood pressure drops. Will closely monitor the patient. Will continue plan of care.
--- NOTE | 2020-11-16 14:12 | Surgery Progress Note ---
Surgery Progress Note Subjective Procedure Performed Right femoral central venous catheter insertion Additional Comments no acute events ill appearing on support Objective Last 24 Hour Vital Signs Date Time Temp Pulse Resp B/P (MAP) Pulse Ox O2 Delivery O2 Flow Rate FiO2 11/16/20 12:00 103 11/16/20 12:00 100 11/16/20 11:38 99.3 11/16/20 09:01 112 139/67 11/16/20 08:00 104 11/16/20 08:00 100 11/16/20 07:18 107 26 100 11/16/20 07:00 110 28 114/55 (74) 11/16/20 06:12 99.8 11/16/20 06:00 110 27 111/43 (65) 11/16/20 05:00 100.9 113 29 123/52 (75) 11/16/20 04:00 100 11/16/20 04:00 Mechanical Ventilator 11/16/20 04:00 110 11/16/20 04:00 119 26 137/62 (87) 11/16/20 03:00 114 26 128/50 (76) 11/16/20 02:00 110 22 128/68 (88) 11/16/20 01:40 106 20 100 11/16/20 01:00 81 28 118/56 (76) 93 11/16/20 00:00 98.4 84 24 104/39 (60) 97 11/16/20 00:00 100 11/16/20 00:00 Mechanical Ventilator 11/16/20 00:00 105 11/15/20 23:00 81 32 99/38 (58) 93 11/15/20 22:22 114 26 100 11/15/20 22:00 96 31 120/57 (78) 87 11/15/20 21:18 126 156/83 11/15/20 21:00 128 26 156/83 (107) 88 11/15/20 20:00 Mechanical Ventilator 11/15/20 20:00 Mechanical Ventilator 11/15/20 20:00 110 11/15/20 20:00 98.0 122 25 152/65 (94) 91 11/15/20 20:00 100 11/15/20 19:25 122 23 100 11/15/20 19:00 108 21 170/68 (102) 93 11/15/20 18:00 97 24 154/53 (86) 91 11/15/20 17:00 97 23 150/57 (88) 100 11/15/20 16:00 98.3 88 23 128/49 (75) 94 11/15/20 16:00 Mechanical Ventilator 11/15/20 16:00 95 11/15/20 16:00 90 11/15/20 15:00 80 29 148/56 (86) 100 11/15/20 14:52 86 18 100 I&O Intake and Output 11/15/20 11/16/20 19:00 07:00 Intake Total 1080 ml 1030 ml Output Total 481 ml 620 ml Balance 599 ml 410 ml Free Water 300 ml 250 ml Tube Feeding 780 ml 780 ml Output Urine Total 480 ml 620 ml Stool Total 1 ml # Bowel Movements 1 Dressing: saturated Cardiovascular: RSR Respiratory: decreased breath sounds Abdomen: soft, non-tender, present bowel sounds Extremities: no tenderness, no cyanosis Laboratory Tests Test 11/15/20 21:28 11/16/20 09:15 11/16/20 10:31 11/16/20 11:12 POC Whole Blood Glucose 218 MG/DL (74-106) H 244 MG/DL (74-106) H 229 MG/DL (74-106) H Arterial Blood pH 7.407 (7.350-7.450) Arterial Blood Partial Pressure CO2 44.4 mmHg (35.0-45.0) Arterial Blood Partial Pressure O2 59.2 mmHg (75.0-100.0) L Arterial Blood HCO3 27.3 mmol/L (22.0-26.0) H Arterial Blood Oxygen Saturation 89.5 % (95-100) *L Arterial Blood Base Excess 2.2 (-2-2) H Jonathan Test Positive Test 11/16/20 12:18 Sodium Level 158 MMOL/L (136-145) H Potassium Level 5.0 MMOL/L (3.5-5.1) Chloride Level 125 MMOL/L (98-107) H Carbon Dioxide Level 32 MMOL/L (21-32) Anion Gap 1 mmol/L (5-15) L Blood Urea Nitrogen 145 mg/dL (7-18) H Creatinine 1.5 MG/DL (0.55-1.30) H Estimat Glomerular Filtration Rate 44.6 mL/min (>60) Glucose Level 284 MG/DL (74-106) H Calcium Level 6.6 MG/DL (8.5-10.1) L Phosphorus Level 3.7 MG/DL (2.5-4.9) Magnesium Level 2.5 MG/DL (1.8-2.4) H Plan Problems: (1) ARDS (adult respiratory distress syndrome) Assessment & Plan: 84-year-old male who pressor insufficiency ARDS Covid on vent ET tube in place chest x-ray reviewed central line in place on sedation. Continue daily weaning trials. NG tube okay for diet tube feeds continue. Microbiology reviewed labs reviewed. Trend labs. IV fluids. Will follow with recommendations thank you for let me participate patient's care cxr stable on abx covid + cont abx cont f wean as tolerated DAILY ESTIMATED NEEDS: Needs based on Critcal care 82.4kg abw 22-28 kcals/kg 0572-9838 total kcals 1.2-2 g protein/kg 99-165 g total protein 20-25/ or per MD mL/kg 3974-1658 total fluid mLs NUTRITION DIAGNOSIS: Swallowing difficulty r/t respiratory status as evidenced by 84 y/o M adm w/ covid++, now orally intubated, NPO. ENTERAL NUTRITION RECOMMENDATIONS: VITAL 1.2 GOAL OF 65ml/hr x24 hrs to provide 1560ml, 1872 kcal, 117g pro, 1265ml free H2O - When hemodynamically stable, rec to start non oral feeds to meet est kcal and pro needs. - Start Vital 1.2 @35ml/hr for 6 hrs, advance as tolerated 10ml/hr q4-6 hrs to goal. - Flush per MD. HOB over 30 degrees ADDITIONAL RECOMMENDATIONS: 1) Maintain calibrated bed scale wts 2) Followed by end, monitor for hypoglycemia while NPO 3) Feed when hemodynamically stable, TF recs as above for critical care, carb control, high pro content to meet est needs 4) Re-evaluate TF w/ change in propofol rate-> current rate w/ TF's do NOT exceed est needs. (2) Hypoxemia (3) Renal failure (4) Elevated troponin (5) COVID-19 Assessment & Plan: ++ on abx tx per Tommie Teague Nov 16, 2020 14:12
--- NOTE | 2020-11-16 16:00 | NUR ---
NURSE NOTES: Bed bath given to the patient. The patient tolerated well. Will closely monitor the patient. Will continue plan of care.
--- NOTE | 2020-11-16 17:00 | NUR ---
NURSE NOTES: The patient is resting on the bed without acute distress or shortness of breath. Tolerating new vent setting and tube feeding well. Will closely monitor the patient. Will continue plan of care.
--- NOTE | 2020-11-16 18:00 | NUR ---
NURSE NOTES: BS 312 noted. Novolog administered per order. The patient tolerated well. Will closely monitor the patient. Will continue plan of care.
--- NOTE | 2020-11-16 19:19 | General Progress Note ---
Subjective Date patient seen: Nov 16, 2020 ROS Limited/Unobtainable: Yes Allergies: Coded Allergies: No Known Allergies (Unverified , 11/06/20) Subjective Patient remains at 100% FiO2. On AC/VC. Vent settings reviewed. PEEP increased from 5 to 8 due to low pO2 on ABG. No significant change in mental status. ROS: unable to obtain due to ALOC Objective Last 24 Hour Vital Signs Date Time Temp Pulse Resp B/P (MAP) Pulse Ox O2 Delivery O2 Flow Rate FiO2 11/16/20 18:00 105 24 103/80 (88) 98 11/16/20 17:00 114 28 152/57 (88) 97 11/16/20 16:00 100 11/16/20 16:00 98.6 104 24 128/44 (72) 100 11/16/20 16:00 102 11/16/20 16:00 Mechanical Ventilator 11/16/20 15:00 89 27 134/38 (70) 100 11/16/20 14:00 94 27 110/52 (71) 100 11/16/20 14:00 130/69 11/16/20 13:42 92 30 100 11/16/20 13:00 104 29 86/37 (53) 100 11/16/20 12:00 Mechanical Ventilator 11/16/20 12:00 103 11/16/20 12:00 99.3 101 28 83/43 (56) 98 11/16/20 12:00 100 11/16/20 11:38 99.3 11/16/20 11:00 115 25 140/48 (78) 100 11/16/20 10:00 108 23 124/65 (84) 100 11/16/20 09:01 112 139/67 11/16/20 09:00 113 23 139/67 (91) 100 11/16/20 08:00 104 11/16/20 08:00 100 11/16/20 08:00 101.0 111 28 121/46 (71) 100 11/16/20 08:00 Mechanical Ventilator 11/16/20 07:18 107 26 100 11/16/20 07:00 110 28 114/55 (74) 11/16/20 06:12 99.8 11/16/20 06:00 110 27 111/43 (65) 11/16/20 05:00 100.9 113 29 123/52 (75) 11/16/20 04:00 100 11/16/20 04:00 Mechanical Ventilator 11/16/20 04:00 110 11/16/20 04:00 119 26 137/62 (87) 11/16/20 03:00 114 26 128/50 (76) 11/16/20 02:00 110 22 128/68 (88) 11/16/20 01:40 106 20 100 11/16/20 01:00 81 28 118/56 (76) 93 11/16/20 00:00 98.4 84 24 104/39 (60) 97 11/16/20 00:00 100 11/16/20 00:00 Mechanical Ventilator 11/16/20 00:00 105 11/15/20 23:00 81 32 99/38 (58) 93 11/15/20 22:22 114 26 100 11/15/20 22:00 96 31 120/57 (78) 87 11/15/20 21:18 126 156/83 11/15/20 21:00 128 26 156/83 (107) 88 11/15/20 20:00 Mechanical Ventilator 11/15/20 20:00 Mechanical Ventilator 11/15/20 20:00 110 11/15/20 20:00 98.0 122 25 152/65 (94) 91 11/15/20 20:00 100 11/15/20 19:25 122 23 100 Intake and Output 11/15/20 11/16/20 19:00 07:00 Intake Total 1080 ml 1030 ml Output Total 481 ml 620 ml Balance 599 ml 410 ml Free Water 300 ml 250 ml Tube Feeding 780 ml 780 ml Output Urine Total 480 ml 620 ml Stool Total 1 ml # Bowel Movements 1 Laboratory Tests 11/15/20 21:28: POC Whole Blood Glucose 218H 11/16/20 09:15: POC Whole Blood Glucose 244H 11/16/20 10:31: Arterial Blood pH 7.407, Arterial Blood Partial Pressure CO2 44.4, Arterial Blood Partial Pressure O2 59.2L, Arterial Blood HCO3 27.3H, Arterial Blood Oxygen Saturation 89.5*L, Arterial Blood Base Excess 2.2H, Jonathan Test Positive 11/16/20 11:12: POC Whole Blood Glucose 229H 11/16/20 12:18: Sodium Level 158H, Potassium Level 5.0, Chloride Level 125H, Carbon Dioxide Level 32, Anion Gap 1L, Blood Urea Nitrogen 145H, Creatinine 1.5H, Estimat Glomerular Filtration Rate 44.6, Glucose Level 284H, Calcium Level 6.6L, Phosphorus Level 3.7, Magnesium Level 2.5H 11/16/20 17:22: POC Whole Blood Glucose [Pending] Height (Feet): 6 Height (Inches): 1.00 Weight (Pounds): 190 Objective Exam limited due to COVID status and to conserve PPE. Per discussion with RN. General: Male A&O x 0. intubated. No carolyn bleeding noted. HEENT: Normocephalic cephalic atraumatic, nares patent and no symmetrical, no tonsillar exudates, mucous membranes moist CV: Regular rate regular rhythm, no murmurs, rubs, or gallops Pulm: Lungs coarse breath sounds bilaterally. No wheezes, rhonchi, or rales GI: Soft, nontender, nondistended, bowel sounds present Neuro: Moving all extremities Ext: No lower extremity edema bilaterally Skin: no rashes lesions or ulcers Msk: Joints symmetrical in upper extremity and lower extremity bilaterally, no joint swelling. Lymph: No lymphadenopathy in upper extremity and lower extremity Assessment/Plan Status: stable Assessment/Plan: 84 yo M w DM2, HTN, ? CKD admitted for Covid19 PNA with SAMEER # acute hypoxemia Resp failure 2/2 covid PNA - needing higher PEEP today > s/p intubation on 11/07/20. EtTube out on 11/11 but re-inserted # Covid PNA # Lactic acid elevation # elevated D dimer # Trop elevated - Patient full code. See Advanced care plan note. Will continue discussions as patient progresses - s/p IVF bolus in ED, will keep lung dry as much as possible - s/p decadron 6mg iv daily - solumedrol Q12hr (11/08 - ) - Remdesivir per ID (11/09 - ) - azithromycin (11/08 - ) - Vancomycin (11/09 - ) - Zosyn (11/09 - ) - Abx per ID - pulm consult: Chasity - ID consult: Steven - Aneesh consult - trend ABG: reviewed - Continue Ac/VC - propofol for sedation - monitor triglycerides - Wean vent as tolerated - s/p NG tube 11/07 for meds. start tube feeding - IV fluids per nephro #S. hominis bacteremia, Contaminant? Defer to ID #Bilateral superimposed pneumonia - ID consulted: Dr. Harris - Follow surveilance cultures - Vanc per pharm (11/08 - ) - Zosyn (11/08 - ) #Anemia - concern for GI bleed - Hgb stable - GI consult Dr. Saavedra # Malnutrition #HTN, current normotensive - Tube feedings - Appreciate surgery recs - D/w RN # DM2 uncontrolled #hyperglycemia - detemir 10 units BID - continue SSI - accuchecks - hypoglycemia protocol # SAMEER vs. SAMEER on CKD, likely prerenal # Dehydration - renal consult - Gentle IV fluids - i/o monitor, montilla cath FENPPX DVTPPX: lovenox GI PPX: protonix Fluids: per nephro Diet: NPO, tube feedings PT/OT: deferred Code status: Full code Dispo: SNF eventually. Guarded prognosis. Family aware Reason for Continued Hospitalization: Hypoxia Time of my involvement, the patient's condition was critical with high potential for and/or physiologic deterioration secondary to acute hypoxic respiratory failure as delineated in the note above. On the above date of service, I spent a total of 34 minutes in the ICU evaluating, managing, and providing critical care services to this patient, including time spent documenting these activities, counseling patient/family, and coordinating care. Critical care services performed include: -Telemetry review -Hemodynamic measurement interpretation -Laboratory data review and interpretation -Vent setting reviewed, management -Discussion of care plans with patient, family, and/or surrogate decision makers -Discussion of patient's care with medical team, surgical team, and/or consulting service -Decision to obtain further radiologic evaluation, after consideration of the risk/benefit ratio -Review of most recent microbiology results assessment and modification of antimicrobial coverage -Discussion of patient's CODE STATUS and further advancement towards the ultimate goals of care. Plan outlined above discussed with patient/family, [employer], ICU team, and involved physician/consultants. Time of note not necessarily time patient was seen Rudy Poole M.D. Nov 16, 2020 19:19
--- NOTE | 2020-11-16 19:30 | NUR ---
NURSE HAND-OFF REPORT: Important Events on Shift: Episode of Hypotension_1L 1/2NS bolus and Dopamine to titrate if needed, Abnormal ABG_ Dr. Gaspar notified_ increased PEEP to 8 Patient Status: Stable, Full code Diet: OGT feeding Vital AF 1.2 @ 65mL/hr Pending Orders: N Pending Results/Labs: N Pending MD notification: N Latest Vital Signs: Temperature 98.6 , Pulse 87 , B/P 112 /48 , Respiratory Rate 28 , O2 SAT 98 , Mechanical Ventilator, O2 Flow Rate . Vital Sign Comment: Stable EKG Rhythm: Sinus Rhythm Rhythm change?: N MD Notified?: Y -Dr.Filsoof WILLS Response: Order Received& Read Back Latest Blackwell Fall Score: 50 Fall Risk: High Risk Safety Measures: Call light Within Reach, Bed Alarm Zone 1, Side Rails Side Rails x3, Bed position Low and Locked. Fall Precautions: Yellow Socks Yellow Gown Door Sign Patient Fall Education Report given to LYNDA Farias. The patient is stable at this time. Endorsed plan of care.
--- NOTE | 2020-11-16 19:35 | NUR ---
NURSE NOTES: Received report from LYNDA Dukes. Patient in bed no moaning no facial grimaces noted. The patient is orally intubated ETT 7.5, Lip line @ 25, AC 16, TV 600, PEEP 5, and FiO2 100% satting 98%. The patient has OGT running Vital AF 1.2 @ 65mL/hr with 30cc residual noted. Douglas intact and draining by gravity The patient has R Femoral TLC that is intact and patent and kept in TKO. The patient's bed in the lowest position, call light in reach, and fall and aspiration precaution reinforced. Covid+, airborne precaution maintained and observed. will continue plan of care.
[2020-11-16] MEDS: Dyna-Hex 2% Top Sol 2oz TOPIC SCH (20:21)
[2020-11-16] MEDS: Enoxaparin 40mg Inj SUBQ SCH (20:22)
[2020-11-16] MEDS: Miralax 17gm pkt GT SCH (20:22)
--- NOTE | 2020-11-16 20:28 | NUR ---
NURSE NOTES: Started Dopamine drip at 2mcg/kg/min BP 94/61
--- NOTE | 2020-11-16 21:00 | Consultation ---
DATE OF CONSULTATION: 11/16/2020 NEUROLOGY CONSULTATION CONSULTING PHYSICIAN: Johnny Drew MD. REFERRING PHYSICIAN: Rahat Gaspar MD. REASON FOR CONSULTATION: Change in mental status. HISTORY OF PRESENT ILLNESS: The patient is an 84-year-old male who was initially admitted on 11/06/2020 due to respiratory distress. According to the ER physician's note, the patient has history of diabetes, hypertension, noncompliance, and possible CKD, who presented to the emergency room for worsening shortness of breath, dyspnea and generalized body weakness over the last few weeks prior to admission. He was found to have COVID-19 pneumonia with acute kidney injury. He was in a respiratory failure secondary to the COVID requiring BiPAP, and he was then admitted to the intensive care unit for further evaluation and treatment. He was started on antibiotics and Decadron. He was doing well until he was noted to have change in his mental status, and so Neurology consultation is being obtained for assessment of his neurological status. At this time, the patient remains in the intensive care unit. He is on mechanical ventilation. There is no other history is available, as the patient is unable to provide any further information due to his current medical status. PAST MEDICAL HISTORY: Significant for diabetes mellitus and hypertension. PAST SURGICAL HISTORY: None. SOCIAL HISTORY: The patient does have history of smoking for 50 years, drinks occasionally. No history of intravenous drug abuse, as per the medical record. ALLERGIES: No known allergies. MEDICATIONS: His current medications include pressor support with dopamine, metoclopramide, insulin, pantoprazole, Lovenox, and flumazenil. REVIEW OF SYSTEMS: Unable to be obtained because of the patient's current medical status. PHYSICAL EXAMINATION: VITAL SIGNS: Blood pressure is 128/44, pulse of 104, he is on mechanical ventilation at 100% oxygen. Pulse oximetry revealed 100% saturation. Temperature is 98.6 degrees. GENERAL: For general physical examination, please refer to Dr. Gaspar and other physicians' examination for details. NEUROLOGIC: Mental status - the patient is awake and alert. He does nod his head when I speak to him, although he does not follow commands. He is on bilateral wrist restraints. Cranial nerves II through XII are tested. Pupils are equal and reactive bilaterally. He does have extraocular movements, which are intact. There is no obvious facial asymmetry. He is currently intubated. Motor examination, the patient does have spontaneous movements of bilateral upper and lower extremities without any focal deficits. He does respond to painful stimulation bilaterally and withdraws both upper and lower extremities. LABORATORY DATA: His most recent laboratory data reveals the following. CBC showed a WBC count of 10.6, which has waxed and waned. The highest was 16.6, three days ago. Hemoglobin is 10.9, hematocrit 33.1, platelets are 166,000. His basic metabolic profile reveals elevated sodium of 158, potassium is 5.0, chloride 125, CO2 32, BUN is 145 and creatinine is elevated at 1.5. Glucose is still elevated at 284. Calcium was low at 6.6. Magnesium is 2.5. The patient's last x-ray was the chest x-ray on 11/14/2020, which revealed continued interstitial infiltrates, which remained unchanged. ASSESSMENT: 1. Acute metabolic encephalopathy, which appears to be improving. 2. Respiratory failure. 3. COVID-19 infection. 4. Diabetes mellitus. 5. Hypertension. 6. Hyperkalemia. 7. CKD. 8. Metabolic acidosis. DISCUSSION AND PLAN: The patient presented with COVID-19 infection and has respiratory failure. His change in mental status was likely due to his multiple medical and electrolyte abnormalities. He appears to be somewhat responsive and according to medical record he is more responsive today than he was in the last couple of days. His examination does not reveal any focal abnormalities. I would like to obtain an imaging study of his brain when is more medically stable. He has not had any imaging study of his brain, so I will obtain a CT scan of the brain as when is possible, he is off any sedating medications. He was on propofol which could have contributed to his altered mental status. I will continue to monitor his neurological status during this hospitalization and provide further recommendations as necessary. Thank you for allowing me to participate in the care of this patient. Johnny Drew M.D. DR: ZOE JOB#: [id number] CC:
--- NOTE | 2020-11-16 21:38 | NUR ---
NURSE NOTES: Patient blood glucose 245mg/dl. Corneliusir 14unitsgiven.
--- NOTE | 2020-11-16 23:00 | NUR ---
NURSE NOTES: Titrated Dopamine drip to 4mcg/kg/min BP 74/55 HR 103.
--- NOTE | 2020-11-16 23:15 | NUR ---
NURSE NOTES: Titrated Dopamine drip to 6mcg/kg/min BP 74/55 HR 103.
[2020-11-17] VITALS (68 sets, daily range): BP systolic 74–137; BP diastolic 32–108
[2020-11-17] MEDS: Metoclopramide 10mg/2ml Inj IVP SCH ×4 (00:20→17:35)
--- NOTE | 2020-11-17 01:00 | NUR ---
NURSE NOTES: Turned and repositioned in bed. HOB elevated. frequent visual checks continued. will continued plan of care.
--- NOTE | 2020-11-17 02:00 | NUR ---
NURSE NOTES: Titrated Dopamine drip to 10mcg/kg/min BP 80/68 HR 105
--- NOTE | 2020-11-17 04:00 | NUR ---
NURSE NOTES: Bed bath given tolerated well.
--- NOTE | 2020-11-17 06:00 | NUR ---
NURSE NOTES: Blood sugar 217mg/dl NovoLog insulin per sliding scale 6 units given. turned and repositioned in bed. will continue plan of care.
[2020-11-17] MEDS: DOPamine 400mg/250ml 250 ML IV SCH ×2 (06:39→13:37)
[2020-11-17] MEDS: NovoLOG Insulin Flexpen SUBQ SCH ×4 (06:53→17:36)
[2020-11-17 07:10] LABS: CALCIUM 7.8 MG/DL (8.5-10.1); CREATININE 1.7 MG/DL (0.55-1.30); POTASSIUM 4.9 MMOL/L (3.5-5.1)
[2020-11-17 07:12] LABS: HEMATOCRIT 34.6 % (42.0-52.0); HEMOGLOBIN 11.7 G/DL (14.2-18.0); MEAN CORPUSCULAR VOLUME 91 FL (80-99); PLATELET COUNT 171 K/UL (150-450); RED BLOOD COUNT 3.81 M/UL (4.70-6.10); RED CELL DISTRIBUTION WIDTH 15.5 % (11.6-14.8); WHITE BLOOD COUNT 15.2 K/UL (4.8-10.8)
--- NOTE | 2020-11-17 07:25 | NUR ---
HAND-OFF: Report given to Venice HOWELL.
--- NOTE | 2020-11-17 07:30 | NUR ---
NURSE NOTES: Report received from Dionra Hikcs RN.Pt asleep,appears lethargic,non responsive to verbal commands,orally intubated,ETT7.0,lip line23,AC16,TV 600,Fio2 40%,Peep 8,noted no resp distress,vent settings tolerated,no signs of Pain or discomfort S-Tach on the monitor,OGTF Vital AF 1.2 at 65 ml/hr no residual,Douglas cath draining yellow urine,skin hot to touch,pt febrile T102.3,IV site to RT femoral TLC intact with Dopamine drip at 16mcg/kg /min,SR up x2 HOB elevated bed lock in lowest position,will continue with plans of care.
--- NOTE | 2020-11-17 08:20 | NUR ---
NURSE NOTES: Pt given Tylenol 650 mg per OGT,for Temp 102.3,will continue to monitor temp.Pt with bilat soft wrist restraints in placed.
[2020-11-17] MEDS: Pantoprazole Inj IVP SCH (08:41)
[2020-11-17] MEDS: Docusate 100mg/10ml Liq GT SCH ×2 (08:41→21:19)
[2020-11-17] MEDS: Metoprolol Tartrate 50mg tab ORAL SCH ×2 (08:41→21:18)
[2020-11-17] MEDS: Levemir Flexpen SUBQ SCH ×2 (09:04→21:00)
--- NOTE | 2020-11-17 09:15 | NUR ---
NURSE NOTES: Dr Gaspar at bedside,updated by LYNDA Lugo of pt's status,ordered to decrease PEEP to 5,will inform R.T.
--- NOTE | 2020-11-17 09:48 | Pulmonology Progress Note ---
Subjective ROS Limited/Unobtainable: Yes Interval Events: No change in neuro status Constitutional: Reports: fever HEENT: Repors: no symptoms Respiratory: Reports: no symptoms Cardiovascular: Reports: no symptoms Gastrointestinal/Abdominal: Reports: no symptoms Allergies: Coded Allergies: No Known Allergies (Unverified , 11/06/20) Objective Last 24 Hour Vital Signs Date Time Temp Pulse Resp B/P (MAP) Pulse Ox O2 Delivery O2 Flow Rate FiO2 11/17/20 08:41 145 137/52 11/17/20 08:00 102.3 145 31 137/52 (80) 95 11/17/20 08:00 100 11/17/20 08:00 137/52 11/17/20 07:00 146 24 115/55 (75) 93 11/17/20 07:00 115/51 11/17/20 06:39 128/52 11/17/20 06:38 128/52 11/17/20 06:00 140 26 104/81 (89) 94 11/17/20 06:00 104/81 11/17/20 05:30 136 26 127/50 (75) 95 11/17/20 05:15 131 28 111/62 (78) 94 11/17/20 05:00 104/56 11/17/20 05:00 127 27 104/56 (72) 94 11/17/20 04:30 131 31 87/52 (64) 90 11/17/20 04:00 99.9 119 27 94/48 (63) 96 11/17/20 04:00 122 11/17/20 04:00 100 11/17/20 04:00 82/44 11/17/20 04:00 Mechanical Ventilator 11/17/20 03:45 121 29 88/44 (59) 94 11/17/20 03:30 126 29 84/39 (54) 91 11/17/20 03:15 135 31 116/95 (102) 92 11/17/20 03:00 136 32 92/45 (61) 98 11/17/20 03:00 116/95 11/17/20 02:30 92/45 11/17/20 02:30 113 33 93/73 (80) 95 11/17/20 02:15 90/73 11/17/20 02:15 103 28 80/68 (72) 97 11/17/20 02:00 105 30 96/41 (59) 97 11/17/20 02:00 80/68 11/17/20 01:45 96/41 11/17/20 01:30 108 27 105/43 (63) 95 11/17/20 01:00 107 24 130/108 (115) 95 11/17/20 01:00 103/43 11/17/20 00:30 104 26 126/42 (70) 98 11/17/20 00:00 102 11/17/20 00:00 109/39 11/17/20 00:00 98.9 104 26 126/39 (68) 97 11/17/20 00:00 100 11/17/20 00:00 Mechanical Ventilator 11/16/20 23:30 104 27 101/52 (68) 97 11/16/20 23:15 74/55 11/16/20 23:00 105 30 112/42 (65) 94 11/16/20 23:00 74/55 11/16/20 22:30 108 27 92/67 (75) 95 11/16/20 22:30 108 27 92/67 (75) 95 11/16/20 22:15 111 28 112/47 (68) 94 11/16/20 22:00 107 26 126/45 (72) 93 11/16/20 22:00 107 26 126/45 (72) 93 11/16/20 22:00 112/47 11/16/20 21:30 103 24 125/90 (102) 98 11/16/20 21:15 91 27 110/40 (63) 98 11/16/20 21:00 91 26 116/46 (69) 99 11/16/20 21:00 116/46 11/16/20 21:00 87 94/61 11/16/20 20:45 91 22 113/45 (67) 99 11/16/20 20:30 86 27 104/40 (61) 100 11/16/20 20:28 94/61 11/16/20 20:15 86 25 94/61 (72) 100 11/16/20 20:00 91 11/16/20 20:00 100 11/16/20 20:00 99.9 89 27 98/49 (65) 100 11/16/20 20:00 Mechanical Ventilator 11/16/20 19:45 89 29 86/41 (56) 100 11/16/20 19:30 89 30 88/71 (77) 100 11/16/20 19:00 87 28 112/48 (69) 98 11/16/20 18:40 87 29 100 11/16/20 18:00 105 24 103/80 (88) 98 11/16/20 17:00 114 28 152/57 (88) 97 11/16/20 16:00 100 11/16/20 16:00 98.6 104 24 128/44 (72) 100 11/16/20 16:00 102 11/16/20 16:00 Mechanical Ventilator 11/16/20 15:00 89 27 134/38 (70) 100 11/16/20 14:00 94 27 110/52 (71) 100 11/16/20 14:00 130/69 11/16/20 13:42 92 30 100 11/16/20 13:00 104 29 86/37 (53) 100 11/16/20 12:00 Mechanical Ventilator 11/16/20 12:00 103 11/16/20 12:00 99.3 101 28 83/43 (56) 98 11/16/20 12:00 100 11/16/20 11:38 99.3 11/16/20 11:00 115 25 140/48 (78) 100 11/16/20 10:00 108 23 124/65 (84) 100 Intake and Output 11/16/20 11/17/20 19:00 07:00 Intake Total 930 ml 2323.110 ml Output Total 380 ml 560 ml Balance 550 ml 1763.110 ml Free Water 150 ml 1200 ml IV Total 343.110 ml Tube Feeding 780 ml 780 ml Output Urine Total 380 ml 560 ml # Bowel Movements 2 General Appearance: no acute distress HEENT: normocephalic Respiratory: chest wall non-tender, lungs clear Cardiovascular: normal peripheral pulses, normal rate Abdomen: normal bowel sounds Laboratory Tests 11/16/20 10:31: Arterial Blood pH 7.407, Arterial Blood Partial Pressure CO2 44.4, Arterial Blood Partial Pressure O2 59.2L, Arterial Blood HCO3 27.3H, Arterial Blood Oxygen Saturation 89.5*L, Arterial Blood Base Excess 2.2H, Jonathan Test Positive 11/16/20 11:12: POC Whole Blood Glucose 229H 11/16/20 12:18: Sodium Level 158H, Potassium Level 5.0, Chloride Level 125H, Carbon Dioxide [place] 32, Anion Gap 1L, Blood Urea Nitrogen 145H, Creatinine 1.5H, Estimat Glomerular Filtration Rate 44.6, Glucose Level 284H, Calcium Level 6.6L, Phosp horus Level 3.7, Magnesium Level 2.5H 11/16/20 17:22: POC Whole Blood Glucose [Pending] 11/16/20 20:36: POC Whole Blood Glucose 269H 11/17/20 05:40: White Blood Count 15.2H, Red Blood Count 3.81L, Hemoglobin 11.7L, Hematocrit 34.6L, Mean Corpuscular Volume 91, Mean Corpuscular Hemoglobin 30.6, Mean Corpuscular Hemoglobin Concent 33.7, Red Cell Distribution Width 15.5H, Platelet Count 171, Mean Platelet Volume 8.5, Neutrophils (%) (Auto) , Lymphocytes (%) (Auto) , Monocytes (%) (Auto) , Eosinophils (%) (Auto) , Basophils (%) (Auto) , Neutrophils % (Manual) [Pending], Lymphocytes % (Manual) [Pending], Platelet Estimate [Pending], Platelet Morphology [Pending], Sodium Level 154H, Potassium Level 4.9, Chloride Level 121H, Carbon Dioxide Level 28, Anion Gap 5, Blood Urea Nitrogen 135H, Creatinine 1.7H, Estimat Glomerular Filtration Rate 38.6, Glucose Level 234H, Calcium Level 7.8L 11/17/20 06:45: POC Whole Blood Glucose [Pending] 11/17/20 08:49: POC Whole Blood Glucose [Pending] Current Medications Medications (Trade) Dose Ordered Sig/Violet Route PRN Reason Start Time Stop Time Status Last Admin Dose Admin Acetaminophen (Tylenol) 650 mg Q4H PRN GT Temp >100.5 11/12/20 11:00 12/12/20 10:44 11/16/20 11:08 Chlorhexidine Gluconate (Patt-Hex 2%) 1 applic DAILY@1999 TOPIC 11/09/20 20:00 02/07/21 19:59 11/16/20 20:21 Dextrose (Dextrose 50%) 25 ml Q30M PRN IV Hypoglycemia 11/06/20 20:00 02/04/21 19:59 Dextrose (Dextrose 50%) 50 ml Q30M PRN IV Hypoglycemia 11/06/20 20:00 02/04/21 19:59 Docusate Sodium (Colace) 100 mg TWICE A DAY GT 11/14/20 18:00 12/14/20 17:59 11/16/20 17:05 Dopamine HCl/ Dextrose 250 ml @ 0 mls/hr Q24H IV 11/16/20 14:00 11/19/20 13:56 11/17/20 06:39 Enoxaparin Sodium (Lovenox) 40 mg Q24H SUBQ 11/07/20 21:00 02/05/21 20:59 11/16/20 20:22 Flumazenil (Romazicon) 0.2 mg NEEDED PRN IV Sedation reversal 11/06/20 20:00 Insulin Aspart (NovoLOG) EVERY 6 HOURS SUBQ 11/08/20 12:00 02/05/21 16:29 11/17/20 06:53 Insulin Detemir (Levemir) 14 units EVERY 12 HOURS SUBQ 11/13/20 09:00 02/05/21 20:59 11/17/20 09:04 Metoclopramide HCl (Reglan) 5 mg Q6HR IVP 11/14/20 12:26 12/14/20 12:25 11/17/20 05:46 Metoprolol Tartrate (Lopressor) 50 mg Q12HR ORAL 11/14/20 23:15 02/12/21 23:14 11/17/20 08:41 Naloxone HCl (Narcan) 0.4 mg NEEDED PRN IVP RR less than 6/min 11/06/20 20:00 02/04/21 19:59 Ondansetron HCl (Zofran) 4 mg Q6H PRN IVP Nausea & Vomiting 11/06/20 20:00 12/06/20 19:59 Pantoprazole (Protonix) 40 mg DAILY IVP 11/08/20 09:00 12/08/20 08:59 11/17/20 08:41 Polyethylene Glycol (Miralax) 17 gm BEDTIME GT 11/14/20 21:00 12/14/20 20:59 11/16/20 20:22 Assessment/Plan Assessment/Plan IMPRESSION: 1. COVID-19 pneumonia. 2. Diabetes mellitus. 3. Hypertension. 4. Hyperkalemia. 5. CKD. 6. Metabolic acidosis. 7. Respiratory Failure; Acute Lung Injury 9. Change in mental status; will dc sedation; continue vent; may need head CT DISCUSSION: Continue broad-spectrum antibiotics. Continue vent/AC mode Currently FiO2 80%; decreased PEEP to 5 Endo tracheal tube adjusted; pt holding volumes on vent now Blood sugar control, Continue Decadron. Off propofol Check labs and ABG AM CXR unchanged Will consult neurology awaiting consultation.; Neurologically, more responsive today. Rahat Gaspar M.D. Rahat Gaspar MD Nov 17, 2020 09:48
--- NOTE | 2020-11-17 09:53 | NUR ---
RESPIRATORY NOTE: Decreased PEEP to +[address] Gaspar. RN aware. Will continue to monitor.
--- NOTE | 2020-11-17 10:26 | Nephrology Progress Note ---
Assessment/Plan Plan #SAMEER on CKD- likely pre-renal azotemia in the setting of sepsis #hypnatremia # acute hypoxemia Resp failure 2/2 covid PNA requiring BIPAP # Covid PNA # Lactic acid elevation # Malnutrition #HTN, current normotensive # elevated D dimer # Trop elevated # DM2 uncontrolled - D5W x1`L - increase free water flushes 250cc q6hr - DC bicarb drip - intubated - monitor volume status - monitor ABG - monitor BMP, mag and phos daily - strict I&Os - daily weights - echo - defer renal US - antibiotic per ID time spent 65min Subjective ROS Limited/Unobtainable: Yes Subjective intubated Cr fluctuating sodium remains elevated will increasefree water flushes Objective Objective Last 24 Hour Vital Signs Date Time Temp Pulse Resp B/P (MAP) Pulse Ox O2 Delivery O2 Flow Rate FiO2 11/17/20 10:00 108/39 11/17/20 10:00 101 23 108/39 (62) 99 11/17/20 09:00 122/51 11/17/20 09:00 101.9 126 25 122/51 (74) 93 11/17/20 08:41 145 137/52 11/17/20 08:00 102.3 145 31 137/52 (80) 95 11/17/20 08:00 100 11/17/20 08:00 Mechanical Ventilator 11/17/20 08:00 137/52 11/17/20 08:00 145 11/17/20 07:00 146 24 115/55 (75) 93 11/17/20 07:00 115/51 11/17/20 06:39 128/52 11/17/20 06:38 128/52 11/17/20 06:00 140 26 104/81 (89) 94 11/17/20 06:00 104/81 11/17/20 05:30 136 26 127/50 (75) 95 11/17/20 05:15 131 28 111/62 (78) 94 11/17/20 05:00 104/56 11/17/20 05:00 127 27 104/56 (72) 94 11/17/20 04:30 131 31 87/52 (64) 90 11/17/20 04:00 99.9 119 27 94/48 (63) 96 11/17/20 04:00 122 11/17/20 04:00 100 11/17/20 04:00 82/44 11/17/20 04:00 Mechanical Ventilator 11/17/20 03:45 121 29 88/44 (59) 94 11/17/20 03:30 126 29 84/39 (54) 91 11/17/20 03:15 135 31 116/95 (102) 92 11/17/20 03:00 136 32 92/45 (61) 98 11/17/20 03:00 116/95 11/17/20 02:30 92/45 11/17/20 02:30 113 33 93/73 (80) 95 11/17/20 02:15 90/73 11/17/20 02:15 103 28 80/68 (72) 97 11/17/20 02:00 105 30 96/41 (59) 97 11/17/20 02:00 80/68 11/17/20 01:45 96/41 11/17/20 01:30 108 27 105/43 (63) 95 11/17/20 01:00 107 24 130/108 (115) 95 11/17/20 01:00 103/43 11/17/20 00:30 104 26 126/42 (70) 98 11/17/20 00:00 102 11/17/20 00:00 109/39 11/17/20 00:00 98.9 104 26 126/39 (68) 97 11/17/20 00:00 100 11/17/20 00:00 Mechanical Ventilator 11/16/20 23:30 104 27 101/52 (68) 97 11/16/20 23:15 74/55 11/16/20 23:00 105 30 112/42 (65) 94 11/16/20 23:00 74/55 11/16/20 22:30 108 27 92/67 (75) 95 11/16/20 22:30 108 27 92/67 (75) 95 11/16/20 22:15 111 28 112/47 (68) 94 11/16/20 22:00 107 26 126/45 (72) 93 11/16/20 22:00 107 26 126/45 (72) 93 11/16/20 22:00 112/47 11/16/20 21:30 103 24 125/90 (102) 98 12/26/20 21:15 91 27 110/40 (63) 98 11/16/20 21:00 91 26 116/46 (69) 99 11/16/20 21:00 116/46 11/16/20 21:00 87 94/61 11/16/20 20:45 91 22 113/45 (67) 99 11/16/20 20:30 86 27 104/40 (61) 100 11/16/20 20:28 94/61 11/16/20 20:15 86 25 94/61 (72) 100 11/16/20 20:00 91 11/16/20 20:00 100 11/16/20 20:00 99.9 89 27 98/49 (65) 100 11/16/20 20:00 Mechanical Ventilator 11/16/20 19:45 89 29 86/41 (56) 100 11/16/20 19:30 89 30 88/71 (77) 100 11/16/20 19:00 87 28 112/48 (69) 98 11/16/20 18:40 87 29 100 11/16/20 18:00 105 24 103/80 (88) 98 11/16/20 17:00 114 28 152/57 (88) 97 11/16/20 16:00 100 11/16/20 16:00 98.6 104 24 128/44 (72) 100 11/16/20 16:00 102 11/16/20 16:00 Mechanical Ventilator 11/16/20 15:00 89 27 134/38 (70) 100 11/16/20 14:00 94 27 110/52 (71) 100 11/16/20 14:00 130/69 11/16/20 13:42 92 30 100 11/16/20 13:00 104 29 86/37 (53) 100 11/16/20 12:00 Mechanical Ventilator 11/16/20 12:00 103 11/16/20 12:00 99.3 101 28 83/43 (56) 98 11/16/20 12:00 100 11/16/20 11:38 99.3 11/16/20 11:00 115 25 140/48 (78) 100 Intake and Output 11/16/20 11/17/20 19:00 07:00 Intake Total 930 ml 2323.110 ml Output Total 380 ml 560 ml Balance 550 ml 1763.110 ml Free Water 150 ml 1200 ml IV Total 343.110 ml Tube Feeding 780 ml 780 ml Output Urine Total 380 ml 560 ml # Bowel Movements 2 Laboratory Tests 11/16/20 10:31: Arterial Blood pH 7.407, Arterial Blood Partial Pressure CO2 44.4, Arterial Blood Partial Pressure O2 59.2L, Arterial Blood HCO3 27.3H, Arterial Blood Oxygen Saturation 89.5*L, Arterial Blood Base Excess 2.2H, Jonathan Test Positive 11/16/20 11:12: POC Whole Blood Glucose 229H 11/16/20 12:18: Sodium Level 158H, Potassium Level 5.0, Chloride Level 125H, Carbon Dioxide Level 32, Anion Gap 1L, Blood Urea Nitrogen 145H, Creatinine 1.5H, Estimat Glomerular Filtration Rate 44.6, Glucose Level 284H, Calcium Level 6.6L, Phosphorus Level 3.7, Magnesium Level 2.5H 11/16/20 17:22: POC Whole Blood Glucose [Pending] 11/16/20 20:36: POC Whole Blood Glucose 269H 11/17/20 05:40: White Blood Count 15.2H, Red Blood Count 3.81L, Hemoglobin 11.7L, Hematocrit 34.6L, Mean Corpuscular Volume 91, Mean Corpuscular Hemoglobin 30.6, Mean Corpuscular Hemoglobin Concent 33.7, Red Cell Distribution Width 15.5H, Platelet Count 171, Mean Platelet Volume 8.5, Neutrophils (%) (Auto) , Lymphocytes (%) (Auto) , Monocytes (%) (Auto) , Eosinophils (%) (Auto) , Basophils (%) (Auto) , Differential Total Cells Counted 100, Neutrophils % (Manual) 91H, Lymphocytes % (Manual) 8L, Monocytes % (Manual) 1, Eosinophils % (Manual) 0, Basophils % (Manual) 0, Band Neutrophils 0, Platelet Estimate Adequate, Platelet Morphology Normal, Anisocytosis 1+, Sodium Level 154H, Potassium Level 4.9, Chloride Level 121H, Carbon Dioxide Level 28, Anion Gap 5, Blood Urea Nitrogen 135H, Creatinine 1.7H, Estimat Glomerular Filtration Rate 38.6, Glucose Level 234H, Calcium Level 7.8L 11/17/20 06:45: POC Whole Blood Glucose [Pending] 11/17/20 08:49: POC Whole Blood Glucose [Pending] Height (Feet): 6 Height (Inches): 1.00 Weight (Pounds): 190 Kulwant Hong M.D. Nov 17, 2020 10:26
--- NOTE | 2020-11-17 10:59 | General Progress Note ---
Subjective ROS Limited/Unobtainable: No Allergies: Coded Allergies: No Known Allergies (Unverified , 11/06/20) Objective Last 24 Hour Vital Signs Date Time Temp Pulse Resp B/P (MAP) Pulse Ox O2 Delivery O2 Flow Rate FiO2 11/17/20 10:00 108/39 11/17/20 10:00 101 23 108/39 (62) 99 11/17/20 09:00 122/51 11/17/20 09:00 101.9 126 25 122/51 (74) 93 11/17/20 08:41 145 137/52 11/17/20 08:00 102.3 145 31 137/52 (80) 95 11/17/20 08:00 100 11/17/20 08:00 Mechanical Ventilator 11/17/20 08:00 137/52 11/17/20 08:00 145 11/17/20 07:15 145 26 100 11/17/20 07:00 146 24 115/55 (75) 93 11/17/20 07:00 115/51 11/17/20 06:39 128/52 11/17/20 06:38 128/52 11/17/20 06:00 140 26 104/81 (89) 94 11/17/20 06:00 104/81 11/17/20 05:30 136 26 127/50 (75) 95 11/17/20 05:15 131 28 111/62 (78) 94 11/17/20 05:00 104/56 11/17/20 05:00 127 27 104/56 (72) 94 11/17/20 04:30 131 31 87/52 (64) 90 11/17/20 04:00 99.9 119 27 94/48 (63) 96 11/17/20 04:00 122 11/17/20 04:00 100 11/17/20 04:00 82/44 11/17/20 04:00 Mechanical Ventilator 11/17/20 03:45 121 29 88/44 (59) 94 11/17/20 03:30 126 29 84/39 (54) 91 11/17/20 03:15 135 31 116/95 (102) 92 11/17/20 03:00 136 32 92/45 (61) 98 11/17/20 03:00 116/95 11/17/20 02:30 92/45 11/17/20 02:30 113 33 93/73 (80) 95 11/17/20 02:15 90/73 11/17/20 02:15 103 28 80/68 (72) 97 11/17/20 02:00 105 30 96/41 (59) 97 11/17/20 02:00 80/68 11/17/20 01:45 96/41 11/17/20 01:30 108 27 105/43 (63) 95 11/17/20 01:00 107 24 130/108 (115) 95 11/17/20 01:00 103/43 11/17/20 00:30 104 26 126/42 (70) 98 11/17/20 00:00 102 11/17/20 00:00 109/39 11/17/20 00:00 98.9 104 26 126/39 (68) 97 11/17/20 00:00 100 11/17/20 00:00 Mechanical Ventilator 11/16/20 23:30 104 27 101/52 (68) 97 11/16/20 23:15 74/55 11/16/20 23:00 105 30 112/42 (65) 94 11/16/20 23:00 74/55 11/16/20 22:30 108 27 92/67 (75) 95 11/16/20 22:30 108 27 92/67 (75) 95 11/16/20 22:15 111 28 112/47 (68) 94 11/16/20 22:00 107 26 126/45 (72) 93 11/16/20 22:00 107 26 126/45 (72) 93 11/16/20 22:00 112/47 11/16/20 21:30 103 24 125/90 (102) 98 11/16/20 21:15 91 27 110/40 (63) 98 11/16/20 21:00 91 26 116/46 (69) 99 11/16/20 21:00 116/46 11/16/20 21:00 87 94/61 11/16/20 20:45 91 22 113/45 (67) 99 11/16/20 20:30 86 27 104/40 (61) 100 20 20:28 94/61 11/16/20 20:15 86 25 94/61 (72) 100 11/16/20 20:00 91 11/16/20 20:00 100 11/16/20 20:00 99.9 89 27 98/49 (65) 100 11/16/20 20:00 Mechanical Ventilator 11/16/20 19:45 89 29 86/41 (56) 100 11/16/20 19:30 89 30 88/71 (77) 100 11/16/20 19:00 87 28 112/48 (69) 98 11/16/20 18:40 87 29 100 11/16/20 18:00 105 24 103/80 (88) 98 11/16/20 17:00 114 28 152/57 (88) 97 11/16/20 16:00 100 11/16/20 16:00 98.6 104 24 128/44 (72) 100 11/16/20 16:00 102 11/16/20 16:00 Mechanical Ventilator 11/16/20 15:00 89 27 134/38 (70) 100 11/16/20 14:00 94 27 110/52 (71) 100 11/16/20 14:00 130/69 11/16/20 13:42 92 30 100 11/16/20 13:00 104 29 86/37 (53) 100 11/16/20 12:00 Mechanical Ventilator 11/16/20 12:00 103 11/16/20 12:00 99.3 101 28 83/43 (56) 98 11/16/20 12:00 100 11/16/20 11:38 99.3 11/16/20 11:00 115 25 140/48 (78) 100 Intake and Output 11/16/20 11/17/20 19:00 07:00 Intake Total 930 ml 2323.110 ml Output Total 380 ml 560 ml Balance 550 ml 1763.110 ml Free Water 150 ml 1200 ml IV Total 343.110 ml Tube Feeding 780 ml 780 ml Output Urine Total 380 ml 560 ml # Bowel Movements 2 Laboratory Tests 11/16/20 11:12: POC Whole Blood Glucose 229H 11/16/20 12:18: Sodium Level 158H, Potassium Level 5.0, Chloride Level 125H, Carbon Dioxide Level 32, Anion Gap 1L, Blood Urea Nitrogen 145H, Creatinine 1.5H, Estimat Glomerular Filtration Rate 44.6, Glucose Level 284H, Calcium Level 6.6L, Phosphorus Level 3.7, Magnesium Level 2.5H 11/16/20 17:22: POC Whole Blood Glucose [Pending] 11/16/20 20:36: POC Whole Blood Glucose 269H 11/17/20 05:40: White Blood Count 15.2H, Red Blood Count 3.81L, Hemoglobin 11.7L, Hematocrit 34.6L, Mean Corpuscular Volume 91, Mean Corpuscular Hemoglobin 30.6, Mean Corpuscular Hemoglobin Concent 33.7, Red Cell Distribution Width 15.5H, Platelet Count 171, Mean Platelet Volume 8.5, Neutrophils (%) (Auto) , Lymphocytes (%) (Auto) , Monocytes (%) (Auto) , Eosinophils (%) (Auto) , Basophils (%) (Auto) , Differential Total Cells Counted 100, Neutrophils % (Manual) 91H, Lymphocytes % (Manual) 8L, Monocytes % (Manual) 1, Eosinophils % (Manual) 0, Basophils % (Manual) 0, Band Neutrophils 0, Platelet Estimate Adequate, Platelet Morphology Normal, Anisocytosis 1+, Sodium Level 154H, Potassium Level 4.9, Chloride Level 121H, Carbon Dioxide Level 28, Anion Gap 5, Blood Urea Nitrogen 135H, Creatinine 1.7H, Estimat Glomerular Filtration Rate 38.6, Glucose Level 234H, Calcium Level 7.8L 11/17/20 06:45: POC Whole Blood Glucose [Pending] 11/17/20 08:49: POC Whole Blood Glucose [Pending] Height (Feet): 6 Height (Inches): 1.00 Weight (Pounds): 190 General Appearance: no apparent distress EENT: normal ENT inspection Neck: supple Cardiovascular: normal rate Respiratory/Chest: decreased breath sounds Abdomen: hypoactive bowel sounds Extremities: non-tender Assessment/Plan Problem List: (1) COVID-19 ICD Codes: U07.1 - COVID-19 SNOMED: 443801919 (2) Elevated troponin ICD Codes: R77.8 - Other specified abnormalities of plasma proteins SNOMED: 600147359, 428331511, 050900980 (3) Renal failure ICD Codes: N19 - Unspecified kidney failure SNOMED: 56621663, 65330600 (4) Hypoxemia ICD Codes: R09.02 - Hypoxemia SNOMED: 298651948, 98813483 (5) ARDS (adult respiratory distress syndrome) ICD Codes: J80 - Acute respiratory distress syndrome SNOMED: 80502433, 38228798 Status: stable Assessment/Plan: GTF running reglan fu labs icu care covid isolation Benoit Saavedra MD Nov 17, 2020 10:59
--- NOTE | 2020-11-17 11:39 | General Progress Note ---
Subjective Date patient seen: Nov 17, 2020 ROS Limited/Unobtainable: Yes Allergies: Coded Allergies: No Known Allergies (Unverified , 11/06/20) Subjective Patient remains at 100% FiO2. On AC/VC. Fever this morning to 101, ordering FFWU. Vent settings reviewed. PEEP decreased from 8 back to 5. No significant change in mental status. ROS: unable to obtain due to ALOC Objective Last 24 Hour Vital Signs Date Time Temp Pulse Resp B/P (MAP) Pulse Ox O2 Delivery O2 Flow Rate FiO2 11/17/20 10:00 108/39 11/17/20 10:00 101 23 108/39 (62) 99 11/17/20 09:00 122/51 11/17/20 09:00 101.9 126 25 122/51 (74) 93 11/17/20 08:41 145 137/52 11/17/20 08:00 102.3 145 31 137/52 (80) 95 11/17/20 08:00 100 11/17/20 08:00 Mechanical Ventilator 11/17/20 08:00 137/52 11/17/20 08:00 145 11/17/20 07:15 145 26 100 11/17/20 07:00 146 24 115/55 (75) 93 11/17/20 07:00 115/51 11/17/20 06:39 128/52 11/17/20 06:38 128/52 11/17/20 06:00 140 26 104/81 (89) 94 11/17/20 06:00 104/81 11/17/20 05:30 136 26 127/50 (75) 95 11/17/20 05:15 131 28 111/62 (78) 94 11/17/20 05:00 104/56 11/17/20 05:00 127 27 104/56 (72) 94 11/17/20 04:30 131 31 87/52 (64) 90 11/17/20 04:00 99.9 119 27 94/48 (63) 96 11/17/20 04:00 122 11/17/20 04:00 100 11/17/20 04:00 82/44 11/17/20 04:00 Mechanical Ventilator 11/17/20 03:45 121 29 88/44 (59) 94 11/17/20 03:30 126 29 84/39 (54) 91 11/17/20 03:15 135 31 116/95 (102) 92 11/17/20 03:00 136 32 92/45 (61) 98 11/17/20 03:00 116/95 11/17/20 02:30 92/45 11/17/20 02:30 113 33 93/73 (80) 95 11/17/20 02:15 90/73 11/17/20 02:15 103 28 80/68 (72) 97 11/17/20 02:00 105 30 96/41 (59) 97 11/17/20 02:00 80/68 11/17/20 01:45 96/41 11/17/20 01:30 108 27 105/43 (63) 95 11/17/20 01:00 107 24 130/108 (115) 95 11/17/20 01:00 103/43 11/17/20 00:30 104 26 126/42 (70) 98 11/17/20 00:00 102 11/17/20 00:00 109/39 11/17/20 00:00 98.9 104 26 126/39 (68) 97 11/17/20 00:00 100 11/17/20 00:00 Mechanical Ventilator 11/16/20 23:30 104 27 101/52 (68) 97 11/16/20 23:15 74/55 11/16/20 23:00 105 30 112/42 (65) 94 11/16/20 23:00 74/55 11/16/20 22:30 108 27 92/67 (75) 95 11/16/20 22:30 108 27 92/67 (75) 95 11/16/20 22:15 111 28 112/47 (68) 94 11/16/20 22:00 107 26 126/45 (72) 93 11/16/20 22:00 107 26 126/45 (72) 93 11/16/20 22:00 112/47 11/16/20 21:30 103 24 125/90 (102) 98 11/16/20 21:15 91 27 110/40 (63) 98 11/16/20 21:00 91 26 116/46 (69) 99 11/16/20 21:00 116/46 11/16/20 21:00 87 94/61 11/16/20 20:45 91 22 113/45 (67) 99 11/16/20 20:30 86 27 104/40 (61) 100 11/16/20 20:28 94/61 11/16/20 20:15 86 25 94/61 (72) 100 11/16/20 20:00 91 11/16/20 20:00 100 11/16/20 20:00 99.9 89 27 98/49 (65) 100 11/16/20 20:00 Mechanical Ventilator 11/16/20 19:45 89 29 86/41 (56) 100 11/16/20 19:30 89 30 88/71 (77) 100 11/16/20 19:00 87 28 112/48 (69) 98 11/16/20 18:40 87 29 100 11/16/20 18:00 105 24 103/80 (88) 98 11/16/20 17:00 114 28 152/57 (88) 97 11/16/20 16:00 100 11/16/20 16:00 98.6 104 24 128/44 (72) 100 11/16/20 16:00 102 11/16/20 16:00 Mechanical Ventilator 11/16/20 15:00 89 27 134/38 (70) 100 11/16/20 14:00 94 27 110/52 (71) 100 11/16/20 14:00 130/69 11/16/20 13:42 92 30 100 11/16/20 13:00 104 29 86/37 (53) 100 11/16/20 12:00 Mechanical Ventilator 11/16/20 12:00 103 11/16/20 12:00 99.3 101 28 83/43 (56) 98 11/16/20 12:00 100 11/16/20 11:38 99.3 Intake and Output 11/16/20 11/17/20 19:00 07:00 Intake Total 930 ml 2323.110 ml Output Total 380 ml 560 ml Balance 550 ml 1763.110 ml Free Water 150 ml 1200 ml IV Total 343.110 ml Tube Feeding 780 ml 780 ml Output Urine Total 380 ml 560 ml # Bowel Movements 2 Laboratory Tests 11/16/20 12:18: Sodium Level 158H, Potassium Level 5.0, Chloride Level 125H, Carbon Dioxide Level 32, Anion Gap 1L, Blood Urea Nitrogen 145H, Creatinine 1.5H, Estimat Glomerular Filtration Rate 44.6, Glucose Level 284H, Calcium Level 6.6L, Phosphorus Level 3.7, Magnesium Level 2.5H 11/16/20 17:22: POC Whole Blood Glucose [Pending] 11/16/20 20:36: POC Whole Blood Glucose 269H 11/17/20 05:40: Sodium Level 154H, Potassium Level 4.9, Chloride Level 121H, Carbon Dioxide Level 28, Anion Gap 5, Blood Urea Nitrogen 135H, Creatinine 1.7H, Estimat Glomerular Filtration Rate 38.6, Glucose Level 234H, Calcium Level 7.8L, White Blood Count 15.2H, Red Blood Count 3.81L, Hemoglobin 11.7L, Hematocrit 34.6L, Mean Corpuscular Volume 91, Mean Corpuscular Hemoglobin 30.6, Mean Corpuscular Hemoglobin Concent 33.7, Red Cell Distribution Width 15.5H, Platelet Count 171, Mean Platelet Volume 8.5, Neutrophils (%) (Auto) , Lymphocytes (%) (Auto) , Monocytes (%) (Auto) , Eosinophils (%) (Auto) , Basophils (%) (Auto) , Differential Total Cells Counted 100, Neutrophils % (Manual) 91H, Lymphocytes % (Manual) 8L, Monocytes % (Manual) 1, Eosinophils % (Manual) 0, Basophils % (Manual) 0, Band Neutrophils 0, Platelet Estimate Adequate, Platelet Morphology Normal, Anisocytosis 1+ 11/17/20 06:45: POC Whole Blood Glucose [Pending] 11/17/20 08:49: POC Whole Blood Glucose [Pending] Height (Feet): 6 Height (Inches): 1.00 Weight (Pounds): 190 Objective Exam limited due to COVID status and to conserve PPE. Per discussion with RN. General: Male A&O x 0. intubated. No carolyn bleeding noted. HEENT: Normocephalic cephalic atraumatic, nares patent and no symmetrical, no tonsillar exudates, mucous membranes moist CV: Regular rate regular rhythm, no murmurs, rubs, or gallops Pulm: Lungs coarse breath sounds bilaterally. No wheezes, rhonchi, or rales GI: Soft, nontender, nondistended, bowel sounds present Neuro: Moving all extremities Ext: No lower extremity edema bilaterally Skin: no rashes lesions or ulcers Msk: Joints symmetrical in upper extremity and lower extremity bilaterally, no joint swelling. Lymph: No lymphadenopathy in upper extremity and lower extremity Assessment/Plan Status: stable Assessment/Plan: 84 yo M w DM2, HTN, ? CKD admitted for Covid19 PNA with SAMEER #Septic shock # acute hypoxemia Resp failure 2/2 covid PNA - needing lower PEEP today > s/p intubation on 11/07/20. EtTube out on 11/11 but re-inserted # Covid PNA - Fever today # Lactic acid elevation # elevated D dimer # Trop elevated - Patient full code. See Advanced care plan note. Will continue discussions as patient progresses - s/p IVF bolus in ED, will keep lung dry as much as possible - s/p decadron 6mg iv daily - s/p solumedrol Q12hr (11/08 started) - s/p Remdesivir per ID (11/09 started) - s/p azithromycin (11/08 started ) - s/p Vancomycin (11/09 started) - s/p Zosyn (11/09 started) - Blood and urine culture, central line culture - Restart Vanc/Zosyn (11/17 - ) - Abx per ID - pulm consult: Chasity - ID consult: Steven - Aneesh consult - trend ABG: reviewed - Continue Ac/VC - propofol for sedation - monitor triglycerides - Wean vent as tolerated - s/p NG tube 11/07 for meds. start tube feeding - IV fluids per nephro #S. hominis bacteremia, Contaminant? Defer to ID #Bilateral superimposed pneumonia - ID consulted: Dr. Harris - Follow surveilance cultures - Vanc per pharm (11/08 - ) - Zosyn (11/08 - ) #Anemia - concern for GI bleed - Hgb stable - GI consult Dr. Saavedra # Malnutrition #HTN, current normotensive - Tube feedings - Appreciate surgery recs - D/w RN # DM2 uncontrolled #hyperglycemia - detemir 10 units BID - continue SSI - accuchecks - hypoglycemia protocol # SAMEER vs. SAMEER on CKD, likely prerenal #Uremia # Dehydration - renal consult - Gentle IV fluids - i/o monitor, montilla cath FENPPX DVTPPX: lovenox GI PPX: protonix Fluids: per nephro Diet: NPO, tube feedings PT/OT: deferred Code status: Full code Dispo: SNF eventually. Guarded prognosis. Family aware Reason for Continued Hospitalization: Hypoxia Time of my involvement, the patient's condition was critical with high potential for and/or physiologic deterioration secondary to acute hypoxic respiratory failure as delineated in the note above. On the above date of service, I spent a total of 39 minutes in the ICU evaluating, managing, and providing critical care services to this patient, including time spent documenting these activities, counseling patient/family, and coordinating care. Critical care services performed include: -Telemetry review -Hemodynamic measurement interpretation -Laboratory data review and interpretation -Vent setting reviewed, management -Discussion of care plans with patient, family, and/or surrogate decision makers -Discussion of patient's care with medical team, surgical team, and/or consulting service -Decision to obtain further radiologic evaluation, after consideration of the risk/benefit ratio -Review of most recent microbiology results assessment and modification of antimicrobial coverage -Discussion of patient's CODE STATUS and further advancement towards the ultimate goals of care. Plan outlined above discussed with patient/family, PSYCHOMETRICIAN, ICU team, and involved physician/consultants. Time of note not necessarily time patient was seen Rudy Poole M.D. Nov 17, 2020 11:39
--- NOTE | 2020-11-17 11:41 | NUR ---
HAND-OFF: Report given to Paola Carrillo RN..
--- NOTE | 2020-11-17 11:42 | NUR ---
NURSE NOTES: Report received from Yue Millard RN. Patient asleep,appears lethargic, non responsive to verbal commands,orally intubated, mechanical ventilator dependent, with ETT 7.5, lip line 25, AC16, TV 600, Fio2 100%,Peep 5, noted no resp distress, vent settings tolerated, no signs of Pain or discomfort. Sinus Tach on the monitor, OGTF Vital AF 1.2 at 65 ml/hr no residual, Douglas cath draining yellow urine, skin warm to touch, IV site to RT femoral TLC intact with Dopamine drip at 8mcg/kg /min, Side rails up x2, HOB elevated bed lock in lowest position, will continue with plans of care. Airborne isolation observed.
--- NOTE | 2020-11-17 12:00 | NUR ---
NURSE NOTES: No signs and symptoms of hypoglycemia.
--- NOTE | 2020-11-17 12:29 | Diagnostic Imaging Report ---
FILM CXR 1 VIEW History: Follow-up Comparison: 14 November 2020 Findings: There is subcutaneous emphysema in the neck with pneumomediastinum demonstrated. No definite pneumothorax. Mixed alveolar interstitial prominence with more focal opacities at the lung bases.. No effusion or pneumothorax. Endotracheal tube in place with tip above the brittany. Impression: Pneumomediastinum with gas seen tracking into the neck likely related to subcutaneous emphysema. No definite pneumothorax appreciated. This may be further assessed with chest CT. Multilobar infiltrates are present and interstitial prominence with slightly worse appearance of the interstitial disease compared to the prior exam. Persistent left greater than right lower lobe infiltrates.
[2020-11-17] MEDS ORDERED: Vancomycin 2gm/D5W 550ml IVPB ONE ×2 (14:00)
--- NOTE | 2020-11-17 14:02 | NUR ---
NURSE NOTES: PICC placement order obtained from Dr. Poole. And to remove right femoral central TLC when PICC is placed.
--- NOTE | 2020-11-17 16:00 | NUR ---
NURSE NOTES: Bed bath provided. No bowel movement noted at this time.
[2020-11-17] MEDS: Acetaminophen 650mg/20.3ml GT PRN (16:02)
--- NOTE | 2020-11-17 18:00 | NUR ---
NURSE NOTES: No signs and symptoms of hypoglycemia. Tolerating tube feeding.
--- NOTE | 2020-11-17 18:19 | Surgery Progress Note ---
Surgery Progress Note Subjective Procedure Performed Right femoral central venous catheter insertion Additional Comments ill appearing no n/v labs noted exam stable Objective Last 24 Hour Vital Signs Date Time Temp Pulse Resp B/P (MAP) Pulse Ox O2 Delivery O2 Flow Rate FiO2 11/17/20 18:11 100 11/17/20 18:00 84/48 11/17/20 18:00 111 32 84/48 (60) 88 11/17/20 17:45 114 39 105/56 (72) 95 11/17/20 17:30 119 40 105/58 (74) 94 11/17/20 17:15 121 36 125/56 (79) 97 11/17/20 17:00 135/48 11/17/20 17:00 120 38 135/48 (77) 96 11/17/20 16:45 118 37 124/42 (69) 97 11/17/20 16:32 100.0 11/17/20 16:30 116 39 133/62 (85) 96 11/17/20 16:15 117 37 128/55 (79) 100 11/17/20 16:00 101.0 119 39 109/56 (73) 100 11/17/20 16:00 Mechanical Ventilator 11/17/20 16:00 80 11/17/20 16:00 109/56 11/17/20 15:45 120 40 137/46 (76) 99 11/17/20 15:30 118 39 134/43 (73) 98 11/17/20 15:15 120 39 137/44 (75) 99 11/17/20 15:05 78 28 100 11/17/20 15:00 80 11/17/20 15:00 132/44 11/17/20 15:00 119 40 132/44 (73) 98 11/17/20 14:45 118 38 132/61 (84) 98 11/17/20 14:30 119 40 121/54 (76) 97 11/17/20 14:15 119 43 131/44 (73) 98 11/17/20 14:00 133/45 11/17/20 14:00 120 43 133/45 (74) 99 11/17/20 13:45 120 40 114/46 (68) 98 11/17/20 13:37 113/47 11/17/20 13:30 119 38 113/47 (69) 99 11/17/20 13:00 115 42 115/53 (73) 100 11/17/20 13:00 115/53 11/17/20 12:00 Mechanical Ventilator 11/17/20 12:00 100.1 110 17 100/55 (70) 99 11/17/20 12:00 100/55 11/17/20 12:00 100 11/17/20 11:36 112 11/17/20 11:05 106 24 100 11/17/20 11:00 113/47 11/17/20 11:00 111 17 103/61 (75) 100 11/17/20 10:00 108/39 11/17/20 10:00 101 23 108/39 (62) 99 11/17/20 09:00 122/51 11/17/20 09:00 101.9 126 25 122/51 (74) 93 11/17/20 08:41 145 137/52 11/17/20 08:00 102.3 145 31 137/52 (80) 95 11/17/20 08:00 100 11/17/20 08:00 Mechanical Ventilator 11/17/20 08:00 137/52 11/17/20 08:00 145 11/17/20 07:15 145 26 100 11/17/20 07:00 146 24 115/55 (75) 93 11/17/20 07:00 115/51 11/17/20 06:39 128/52 11/17/20 06:38 128/52 11/17/20 06:00 140 26 104/81 (89) 94 11/17/20 06:00 104/81 11/17/20 05:30 136 26 127/50 (75) 95 11/17/20 05:15 131 28 111/62 (78) 94 11/17/20 05:00 104/56 11/17/20 05:00 127 27 104/56 (72) 94 11/17/20 04:30 131 31 87/52 (64) 90 11/17/20 04:00 99.9 119 27 94/48 (63) 96 11/17/20 04:00 122 11/17/20 04:00 100 11/17/20 04:00 82/44 11/17/20 04:00 Mechanical Ventilator 11/17/20 03:45 121 29 88/44 (59) 94 11/17/20 03:30 126 29 84/39 (54) 91 11/17/20 03:15 135 31 116/95 (102) 92 11/17/20 03:00 136 32 92/45 (61) 98 11/17/20 03:00 116/95 11/17/20 02:30 92/45 11/17/20 02:30 113 33 93/73 (80) 95 11/17/20 02:15 90/73 11/17/20 02:15 103 28 80/68 (72) 97 11/17/20 02:00 105 30 96/41 (59) 97 11/17/20 02:00 80/68 11/17/20 01:45 96/41 11/17/20 01:30 108 27 105/43 (63) 95 11/17/20 01:00 107 24 130/108 (115) 95 11/17/20 01:00 103/43 11/17/20 00:30 104 26 126/42 (70) 98 11/17/20 00:00 102 11/17/20 00:00 109/39 11/17/20 00:00 98.9 104 26 126/39 (68) 97 11/17/20 00:00 100 11/17/20 00:00 Mechanical Ventilator 11/16/20 23:30 104 27 101/52 (68) 97 11/16/20 23:15 74/55 11/16/20 23:00 105 30 112/42 (65) 94 11/16/20 23:00 74/55 11/16/20 22:30 108 27 92/67 (75) 95 11/16/20 22:30 108 27 92/67 (75) 95 11/16/20 22:15 111 28 112/47 (68) 94 11/16/20 22:00 107 26 126/45 (72) 93 11/16/20 22:00 107 26 126/45 (72) 93 11/16/20 22:00 112/47 11/16/20 21:30 103 24 125/90 (102) 98 11/16/20 21:15 91 27 110/40 (63) 98 11/16/20 21:00 91 26 116/46 (69) 99 11/16/20 21:00 116/46 11/16/20 21:00 87 94/61 11/16/20 20:45 91 22 113/45 (67) 99 11/16/20 20:30 86 27 104/40 (61) 100 11/16/20 20:28 94/61 11/16/20 20:15 86 25 94/61 (72) 100 11/16/20 20:00 91 11/16/20 20:00 100 11/16/20 20:00 99.9 89 27 98/49 (65) 100 11/16/20 20:00 Mechanical Ventilator 11/16/20 19:45 89 29 86/41 (56) 100 11/16/20 19:30 89 30 88/71 (77) 100 11/16/20 19:00 87 28 112/48 (69) 98 11/16/20 18:40 87 29 100 I&O Intake and Output 11/16/20 11/17/20 19:00 07:00 Intake Total 930 ml 2323.110 ml Output Total 380 ml 560 ml Balance 550 ml 1763.110 ml Free Water 150 ml 1200 ml IV Total 343.110 ml Tube Feeding 780 ml 780 ml Output Urine Total 380 ml 560 ml # Bowel Movements 2 Dressing: saturated Cardiovascular: RSR Respiratory: decreased breath sounds Abdomen: soft, non-tender, present bowel sounds Extremities: no tenderness, no cyanosis Laboratory Tests Test 11/16/20 20:36 11/17/20 05:40 11/17/20 06:45 11/17/20 08:49 POC Whole Blood Glucose 269 MG/DL (74-106) H Pending Pending White Blood Count 15.2 K/UL (4.8-10.8) H Red Blood Count 3.81 M/UL (4.70-6.10) L Hemoglobin 11.7 G/DL (14.2-18.0) L Hematocrit 34.6 % (42.0-52.0) L Mean Corpuscular Volume 91 FL (80-99) Mean Corpuscular Hemoglobin 30.6 PG (27.0-31.0) Mean Corpuscular Hemoglobin Concent 33.7 G/DL (32.0-36.0) Red Cell Distribution Width 15.5 % (11.6-14.8) H Platelet Count 171 K/UL (150-450) Mean Platelet Volume 8.5 FL (6.5-10.1) Neutrophils (%) (Auto) % (45.0-75.0) Lymphocytes (%) (Auto) % (20.0-45.0) Monocytes (%) (Auto) % (1.0-10.0) Eosinophils (%) (Auto) % (0.0-3.0) Basophils (%) (Auto) % (0.0-2.0) Differential Total Cells Counted 100 Neutrophils % (Manual) 91 % (45-75) H Lymphocytes % (Manual) 8 % (20-45) L Monocytes % (Manual) 1 % (1-10) Eosinophils % (Manual) 0 % (0-3) Basophils % (Manual) 0 % (0-2) Band Neutrophils 0 % (0-8) Platelet Estimate Adequate Platelet Morphology Normal Anisocytosis 1+ Sodium Level 154 MMOL/L (136-145) H Potassium Level 4.9 MMOL/L (3.5-5.1) Chloride Level 121 MMOL/L (98-107) H Carbon Dioxide Level 28 MMOL/L (21-32) Anion Gap 5 mmol/L (5-15) Blood Urea Nitrogen 135 mg/dL (7-18) H Creatinine 1.7 MG/DL (0.55-1.30) H Estimat Glomerular Filtration Rate 38.6 mL/min (>60) Glucose Level 234 MG/DL (74-106) H Calcium Level 7.8 MG/DL (8.5-10.1) L Test 11/17/20 17:23 POC Whole Blood Glucose 291 MG/DL (74-106) H Plan Problems: (1) ARDS (adult respiratory distress syndrome) Assessment & Plan: 84-year-old male who pressor insufficiency ARDS Covid on vent ET tube in place chest x-ray reviewed central line in place on sedation. Continue daily weaning trials. NG tube okay for diet tube feeds continue. Microbiology reviewed labs reviewed. Trend labs. IV fluids. Will follow with recommendations thank you for let me participate patient's care cxr stable on abx covid + cont abx cont f wean as tolerated DAILY ESTIMATED NEEDS: Needs based on Critcal care 82.4kg abw 22-28 kcals/kg 2243-1146 total kcals 1.2-2 g protein/kg 99-165 g total protein 20-25/ or per MD mL/kg 7626-5425 total fluid mLs NUTRITION DIAGNOSIS: Swallowing difficulty r/t respiratory status as evidenced by 84 y/o M adm w/ covid++, now orally intubated, NPO. ENTERAL NUTRITION RECOMMENDATIONS: VITAL 1.2 GOAL OF 65ml/hr x24 hrs to provide 1560ml, 1872 kcal, 117g pro, 1265ml free H2O - When hemodynamically stable, rec to start non oral feeds to meet est kcal and pro needs. - Start Vital 1.2 @35ml/hr for 6 hrs, advance as tolerated 10ml/hr q4-6 hrs to goal. - Flush per . HOB over 30 degrees ADDITIONAL RECOMMENDATIONS: 1) Maintain calibrated bed scale wts 2) Followed by end, monitor for hypoglycemia while NPO 3) Feed when hemodynamically stable, TF recs as above for critical care, carb control, high pro content to meet est needs 4) Re-evaluate TF w/ change in propofol rate-> current rate w/ TF's do NOT exceed est needs. (2) Hypoxemia (3) Renal failure (4) Elevated troponin (5) COVID-19 Assessment & Plan: ++ on abx tx per Tommie Teague Nov 17, 2020 18:19
--- NOTE | 2020-11-17 19:20 | NUR ---
NURSE HAND-OFF REPORT: Latest Vital Signs: Temperature 100.0 , Pulse 109 , B/P 98 /78 , Respiratory Rate 20 , O2 SAT 100 , Mechanical Ventilator, O2 Flow Rate . Vital Sign Comment: On dopamine drip at 6 mcg EKG Rhythm: Sinus Tachycardia Rhythm change?: N Latest Blackwell Fall Score: 50 Fall Risk: High Risk Safety Measures: Call light Within Reach, Bed Alarm Zone 1, Side Rails Side Rails x3, Bed position Low and Locked. Fall Precautions: Yellow Socks Yellow Gown Door Sign Patient Fall Education Airborne islation endorsed. Report given to Ilda Berry RN.
[2020-11-17] MEDS ORDERED: Norepinephrine 4mg/NS Premix 250 ML IV PRN (19:30)
[2020-11-17] MEDS: Dyna-Hex 2% Top Sol 2oz TOPIC SCH ×2 (20:00→21:17)
[2020-11-17] MEDS: Miralax 17gm pkt GT SCH (21:16)
[2020-11-17] MEDS: Enoxaparin 40mg Inj SUBQ SCH (21:21)
[2020-11-17] MEDS: Piperacillin/Tazobactam 3.375 GM in NS 110 ML IVPB SCH (21:22)
[2020-11-18] VITALS (68 sets, daily range): BP systolic 83–185; BP diastolic 11–54
[2020-11-18] MEDS: DOPamine 400mg/250ml 250 ML IV SCH ×3 (00:35→19:47)
[2020-11-18] MEDS: NovoLOG Insulin Flexpen SUBQ SCH ×4 (00:35→18:04)
--- NOTE | 2020-11-18 04:00 | NUR ---
NURSE NOTES: complete bedbath
[2020-11-18] MEDS: Piperacillin/Tazobactam 3.375 GM in NS 110 ML IVPB SCH ×3 (06:00→20:55)
[2020-11-18] MEDS: Metoclopramide 10mg/2ml Inj IVP SCH ×4 (06:00→17:52)
--- NOTE | 2020-11-18 06:00 | NUR ---
NURSE NOTES: bs 234 coverage coverage given
--- NOTE | 2020-11-18 07:44 | NUR ---
NURSE HAND-OFF REPORT: Latest Vital Signs: Temperature 99.8 , Pulse 93 , B/P 112 /50 , Respiratory Rate 30 , O2 SAT 94 , Mechanical Ventilator, O2 Flow Rate . Vital Sign Comment: EKG Rhythm: Sinus Rhythm Rhythm change?: N Notified?: Marty Jerez MD Response: Order Received& Read Back Latest Blackwell Fall Score: 50 Fall Risk: High Risk Safety Measures: Call light Within Reach, Bed Alarm Zone 1, Side Rails Side Rails x3, Bed position Low and Locked. Fall Precautions: Yellow Socks Yellow Gown Door Sign Patient Fall Education Report given to alex hogan using s bar .
--- NOTE | 2020-11-18 08:26 | General Progress Note ---
Subjective ROS Limited/Unobtainable: No Allergies: Coded Allergies: No Known Allergies (Unverified , 11/06/20) Objective Last 24 Hour Vital Signs Date Time Temp Pulse Resp B/P (MAP) Pulse Ox O2 Delivery O2 Flow Rate FiO2 11/18/20 07:15 93 30 94 11/18/20 07:00 112/50 11/18/20 07:00 95 31 94/35 (54) 94 11/18/20 06:45 89 25 114/39 (64) 94 11/18/20 06:30 91 32 107/54 (71) 94 11/18/20 06:15 93 27 114/38 (63) 94 11/18/20 06:00 93 25 116/46 (69) 93 11/18/20 06:00 114/38 11/18/20 05:45 95 27 114/42 (66) 92 11/18/20 05:30 112 29 111/41 (64) 92 11/18/20 05:15 101 12 97/39 (58) 78 11/18/20 05:00 97/39 11/18/20 05:00 100 21 118/51 (73) 92 11/18/20 04:45 99 27 111/44 (66) 92 11/18/20 04:30 97 26 109/54 (72) 93 11/18/20 04:15 97 27 115/37 (63) 94 11/18/20 04:00 Mechanical Ventilator 11/18/20 04:00 100 11/18/20 04:00 100 11/18/20 04:00 115/37 11/18/20 04:00 93 25 125/41 (69) 93 11/18/20 03:30 94 33 100 11/18/20 03:00 95/38 11/18/20 03:00 97 29 95/38 (57) 93 11/18/20 02:45 100 25 106/36 (59) 92 11/18/20 02:30 105 29 94/36 (55) 93 11/18/20 02:15 94 32 92/43 (59) 92 11/18/20 02:00 92/43 11/18/20 02:00 98 21 112/48 (69) 93 11/18/20 01:45 100 29 99/37 (57) 93 11/18/20 01:30 96 33 91/34 (53) 93 11/18/20 01:15 96 32 106/35 (58) 93 11/18/20 01:00 96 29 116/38 (64) 91 11/18/20 01:00 106/35 11/18/20 00:45 92 29 103/37 (59) 92 11/18/20 00:35 88/45 11/18/20 00:30 101 34 88/45 (59) 91 11/18/20 00:15 98 33 101/39 (59) 90 11/18/20 00:00 100 11/18/20 00:00 101/39 11/18/20 00:00 99.8 94 33 90/39 (56) 89 11/18/20 00:00 Mechanical Ventilator 11/18/20 00:00 100 11/17/20 23:45 89 32 96/36 (56) 93 11/17/20 23:30 95 26 101/32 (55) 94 11/17/20 23:15 92 23 106/36 (59) 95 11/17/20 23:00 91 27 106/36 (59) 96 11/17/20 23:00 106/36 11/17/20 22:45 89 25 108/42 (64) 96 11/17/20 22:44 94 32 100 11/17/20 22:30 94 27 93/40 (57) 97 11/17/20 22:15 93 25 89/35 (53) 96 11/17/20 22:00 96 30 94/42 (59) 95 11/17/20 22:00 94/42 11/17/20 21:45 99 28 91/43 (59) 95 11/17/20 21:30 102 29 93/42 (59) 93 11/17/20 21:18 99 99/46 11/17/20 21:15 103 33 99/46 (63) 92 11/17/20 21:00 109 34 74/48 (57) 93 11/17/20 21:00 74/48 11/17/20 20:45 117 19 124/41 (68) 97 11/17/20 20:30 116 10 110/50 (70) 96 11/17/20 20:15 114 18 111/51 (71) 96 11/17/20 20:00 Mechanical Ventilator 11/17/20 20:00 99.0 114 13 117/46 (69) 95 11/17/20 20:00 120 11/17/20 20:00 117/46 11/17/20 20:00 100 11/17/20 19:45 109 18 113/44 (67) 98 11/17/20 19:37 106 24 114/65 (81) 98 11/17/20 19:30 108 36 100 11/17/20 19:30 102 17 83/39 (54) 97 11/17/20 19:21 104 18 103/48 (66) 98 11/17/20 19:15 106 18 90/38 (55) 98 11/17/20 19:00 98/78 11/17/20 19:00 109 20 98/78 (85) 100 11/17/20 18:45 109 20 102/46 (64) 100 11/17/20 18:30 111 18 93/44 (60) 99 11/17/20 18:15 115 14 99/50 (66) 95 11/17/20 18:11 100 11/17/20 18:00 84/48 11/17/20 18:00 111 32 84/48 (60) 88 11/17/20 17:45 114 39 105/56 (72) 95 11/17/20 17:30 119 40 105/58 (74) 94 11/17/20 17:15 121 36 125/56 (79) 97 11/17/20 17:00 135/48 11/17/20 17:00 120 38 135/48 (77) 96 11/17/20 16:45 118 37 124/42 (69) 97 11/17/20 16:32 100.0 11/17/20 16:30 116 39 133/62 (85) 96 11/17/20 16:15 117 37 128/55 (79) 100 11/17/20 16:00 101.0 119 39 109/56 (73) 100 11/17/20 16:00 Mechanical Ventilator 11/17/20 16:00 80 11/17/20 16:00 109/56 11/17/20 15:45 120 40 137/46 (76) 99 11/17/20 15:30 118 39 134/43 (73) 98 11/17/20 15:18 120 11/17/20 15:15 120 39 137/44 (75) 99 11/17/20 15:05 78 28 100 11/17/20 15:00 80 11/17/20 15:00 132/44 11/17/20 15:00 119 40 132/44 (73) 98 11/17/20 14:45 118 38 132/61 (84) 98 11/17/20 14:30 119 40 121/54 (76) 97 11/17/20 14:15 119 43 131/44 (73) 98 11/17/20 14:00 133/45 11/17/20 14:00 120 43 133/45 (74) 99 11/17/20 13:45 120 40 114/46 (68) 98 11/17/20 13:37 113/47 11/17/20 13:30 119 38 113/47 (69) 99 11/17/20 13:00 115 42 115/53 (73) 100 11/17/20 13:00 115/53 11/17/20 12:00 Mechanical Ventilator 11/17/20 12:00 100.1 110 17 100/55 (70) 99 11/17/20 12:00 100/55 11/17/20 12:00 100 11/17/20 11:36 112 11/17/20 11:05 106 24 100 11/17/20 11:00 113/47 11/17/20 11:00 111 17 103/61 (75) 100 11/17/20 10:00 108/39 11/17/20 10:00 101 23 108/39 (62) 99 11/17/20 09:00 122/51 11/17/20 09:00 101.9 126 25 122/51 (74) 93 11/17/20 08:41 145 137/52 Intake and Output 11/17/20 11/18/20 19:00 07:00 Intake Total 3290.760 ml 2272.628 ml Output Total 965 ml 650 ml Balance 2325.760 ml 1622.628 ml Free Water 1500 ml 1200 ml IV Total 850.760 ml 292.628 ml Tube Feeding 780 ml 780 ml Other 160 ml Output Urine Total 965 ml 650 ml # Bowel Movements 1 Laboratory Tests 11/17/20 08:49: POC Whole Blood Glucose [Pending] 11/17/20 17:23: POC Whole Blood Glucose 291H 11/18/20 00:34: POC Whole Blood Glucose 316H Height (Feet): 6 Height (Inches): 1.00 Weight (Pounds): 190 General Appearance: no apparent distress EENT: normal ENT inspection Neck: supple Cardiovascular: normal rate Respiratory/Chest: decreased breath sounds Abdomen: normal bowel sounds, non tender, soft Extremities: non-tender Assessment/Plan Problem List: (1) COVID-19 ICD Codes: U07.1 - COVID-19 SNOMED: 992938833 (2) Elevated troponin ICD Codes: R77.8 - Other specified abnormalities of plasma proteins SNOMED: 106756847, 893120907, 451213620 (3) Renal failure ICD Codes: N19 - Unspecified kidney failure SNOMED: 55066305, 77385026 (4) Hypoxemia ICD Codes: R09.02 - Hypoxemia SNOMED: 766499848, 48348904 (5) ARDS (adult respiratory distress syndrome) ICD Codes: J80 - Acute respiratory distress syndrome SNOMED: 98419196, 97932635 Status: stable Assessment/Plan: GTF running reglan fu labs icu care covid isolation Benoit Saavedra MD Nov 18, 2020 08:26
--- NOTE | 2020-11-18 08:38 | NUR ---
RD ASSESSMENT & RECOMMENDATIONS SEE CARE ACTIVITY FOR COMPLETE ASSESSMENT DAILY ESTIMATED NEEDS: Needs based on Critcal care 82.4kg abw 22-28 kcals/kg 4346-7185 total kcals 1.2-2 g protein/kg 99-165 g total protein 20-25/ or per MD mL/kg 2363-2278 total fluid mLs NUTRITION DIAGNOSIS: Swallowing difficulty r/t respiratory status as evidenced by 84 y/o M adm w/ covid + PNA, now orally intubated, w/ OGT feeds CURRENT TF:Vital AF 1.2 @ goal of 65ml/hr x 24 hrs ENTERAL NUTRITION RECOMMENDATIONS: VITAL AF 1.2 (carb controlled and critical care) @ 55ml/hr x 24 hrs to provide 1320m, 1584kcal, 99g prot, 1070ml free water * With hyperglycemia (BGs 200'-300's), lower goal rate to 55ml/hr x 24 hrs -> will provide 87% est kcal and 100% est prot needs * W/ improved BG control, rec goal rate of 65ml/hr x 24 hrs to provide 100% est needs of 1560ml, 1872 kcal, 117g pro, 1265ml free H2O * Flush per MD. HOB over 30 degrees ADDITIONAL RECOMMENDATIONS: 1) Maintain calibrated bed scale wts 2) Monitor for hyperglycemia: elev BGs 200's, 300's -> Rec endo consult, consider increase insulin regimen 3) Consider prokinetics w/ continued TF residuals 4) Monitor hydration status: Na, BUN, creat elevated, increase H2o flushes 5) Feed w/ hemodynamic stability .
--- NOTE | 2020-11-18 08:59 | Nephrology Progress Note ---
Assessment/Plan Plan #SAMEER on CKD- likely pre-renal azotemia in the setting of sepsis #hypnatremia # acute hypoxemia Resp failure 2/2 covid PNA requiring BIPAP # Covid PNA # Lactic acid elevation # Malnutrition #HTN, current normotensive # elevated D dimer # Trop elevated # DM2 uncontrolled - lasix 80 IV - continue free water flushes 250cc q6hr - DC bicarb drip - intubated - monitor volume status - monitor ABG - monitor BMP, mag and phos daily - strict I&Os - daily weights - echo - defer renal US - antibiotic per ID time spent 65min Subjective ROS Limited/Unobtainable: Yes Subjective intubated Cr fluctuating sodium remains elevated will increasefree water flushes Objective Objective Last 24 Hour Vital Signs Date Time Temp Pulse Resp B/P (MAP) Pulse Ox O2 Delivery O2 Flow Rate FiO2 11/18/20 07:15 93 30 94 11/18/20 07:00 112/50 11/18/20 07:00 95 31 94/35 (54) 94 11/18/20 06:45 89 25 114/39 (64) 94 11/18/20 06:30 91 32 107/54 (71) 94 11/18/20 06:15 93 27 114/38 (63) 94 11/18/20 06:00 93 25 116/46 (69) 93 11/18/20 06:00 114/38 11/18/20 05:45 95 27 114/42 (66) 92 11/18/20 05:30 112 29 111/41 (64) 92 11/18/20 05:15 101 12 97/39 (58) 78 11/18/20 05:00 97/39 11/18/20 05:00 100 21 118/51 (73) 92 11/18/20 04:45 99 27 111/44 (66) 92 11/18/20 04:30 97 26 109/54 (72) 93 11/18/20 04:15 97 27 115/37 (63) 94 11/18/20 04:00 Mechanical Ventilator 11/18/20 04:00 100 11/18/20 04:00 100 11/18/20 04:00 115/37 11/18/20 04:00 93 25 125/41 (69) 93 11/18/20 03:30 94 33 100 11/18/20 03:00 95/38 11/18/20 03:00 97 29 95/38 (57) 93 11/18/20 02:45 100 25 106/36 (59) 92 11/18/20 02:30 105 29 94/36 (55) 93 11/18/20 02:15 94 32 92/43 (59) 92 11/18/20 02:00 92/43 11/18/20 02:00 98 21 112/48 (69) 93 11/18/20 01:45 100 29 99/37 (57) 93 11/18/20 01:30 96 33 91/34 (53) 93 11/18/20 01:15 96 32 106/35 (58) 93 11/18/20 01:00 96 29 116/38 (64) 91 11/18/20 01:00 106/35 11/18/20 00:45 92 29 103/37 (59) 92 11/18/20 00:35 88/45 11/18/20 00:30 101 34 88/45 (59) 91 11/18/20 00:15 98 33 101/39 (59) 90 11/18/20 00:00 100 11/18/20 00:00 101/39 11/18/20 00:00 99.8 94 33 90/39 (56) 89 11/18/20 00:00 Mechanical Ventilator 11/18/20 00:00 100 11/17/20 23:45 89 32 96/36 (56) 93 11/17/20 23:30 95 26 101/32 (55) 94 11/17/20 23:15 92 23 106/36 (59) 95 11/17/20 23:00 91 27 106/36 (59) 96 11/17/20 23:00 106/36 11/17/20 22:45 89 25 108/42 (64) 96 11/17/20 22:44 94 32 100 11/17/20 22:30 94 27 93/40 (57) 97 11/17/20 22:15 93 25 89/35 (53) 96 11/17/20 22:00 96 30 94/42 (59) 95 11/17/20 22:00 94/42 11/17/20 21:45 99 28 91/43 (59) 95 11/17/20 21:30 102 29 93/42 (59) 93 11/17/20 21:18 99 99/46 11/17/20 21:15 103 33 99/46 (63) 92 11/17/20 21:00 109 34 74/48 (57) 93 11/17/20 21:00 74/48 11/17/20 20:45 117 19 124/41 (68) 97 11/17/20 20:30 116 10 110/50 (70) 96 11/17/20 20:15 114 18 111/51 (71) 96 11/17/20 20:00 Mechanical Ventilator 11/17/20 20:00 99.0 114 13 117/46 (69) 95 11/17/20 20:00 120 11/17/20 20:00 117/46 11/17/20 20:00 100 11/17/20 19:45 109 18 113/44 (67) 98 11/17/20 19:37 106 24 114/65 (81) 98 11/17/20 19:30 108 36 100 11/17/20 19:30 102 17 83/39 (54) 97 11/17/20 19:21 104 18 103/48 (66) 98 11/17/20 19:15 106 18 90/38 (55) 98 11/17/20 19:00 98/78 11/17/20 19:00 109 20 98/78 (85) 100 11/17/20 18:45 109 20 102/46 (64) 100 11/17/20 18:30 111 18 93/44 (60) 99 11/17/20 18:15 115 14 99/50 (66) 95 11/17/20 18:11 100 11/17/20 18:00 84/48 11/17/20 18:00 111 32 84/48 (60) 88 11/17/20 17:45 114 39 105/56 (72) 95 11/17/20 17:30 119 40 105/58 (74) 94 11/17/20 17:15 121 36 125/56 (79) 97 11/17/20 17:00 135/48 11/17/20 17:00 120 38 135/48 (77) 96 11/17/20 16:45 118 37 124/42 (69) 97 11/17/20 16:32 100.0 11/17/20 16:30 116 39 133/62 (85) 96 11/17/20 16:15 117 37 128/55 (79) 100 11/17/20 16:00 101.0 119 39 109/56 (73) 100 11/17/20 16:00 Mechanical Ventilator 11/17/20 16:00 80 11/17/20 16:00 109/56 11/17/20 15:45 120 40 137/46 (76) 99 11/17/20 15:30 118 39 134/43 (73) 98 11/17/20 15:18 120 11/17/20 15:15 120 39 137/44 (75) 99 11/17/20 15:05 78 28 100 11/17/20 15:00 80 11/17/20 15:00 132/44 11/17/20 15:00 119 40 132/44 (73) 98 11/17/20 14:45 118 38 132/61 (84) 98 11/17/20 14:30 119 40 121/54 (76) 97 11/17/20 14:15 119 43 131/44 (73) 98 11/17/20 14:00 133/45 11/17/20 14:00 120 43 133/45 (74) 99 11/17/20 13:45 120 40 114/46 (68) 98 11/17/20 13:37 113/47 11/17/20 13:30 119 38 113/47 (69) 99 11/17/20 13:00 115 42 115/53 (73) 100 11/17/20 13:00 115/53 11/17/20 12:00 Mechanical Ventilator 11/17/20 12:00 100.1 110 17 100/55 (70) 99 11/17/20 12:00 100/55 11/17/20 12:00 100 11/17/20 11:36 112 11/17/20 11:05 106 24 100 11/17/20 11:00 113/47 11/17/20 11:00 111 17 103/61 (75) 100 11/17/20 10:00 108/39 11/17/20 10:00 101 23 108/39 (62) 99 11/17/20 09:00 122/51 11/17/20 09:00 101.9 126 25 122/51 (74) 93 Intake and Output 11/17/20 11/18/20 19:00 07:00 Intake Total 3290.760 ml 2272.628 ml Output Total 965 ml 650 ml Balance 2325.760 ml 1622.628 ml Free Water 1500 ml 1200 ml IV Total 850.760 ml 292.628 ml Tube Feeding 780 ml 780 ml Other 160 ml Output Urine Total 965 ml 650 ml # Bowel Movements 1 Laboratory Tests 11/17/20 17:23: POC Whole Blood Glucose 291H 11/18/20 00:34: POC Whole Blood Glucose 316H 11/18/20 08:30: Arterial Blood pH 7.361, Arterial Blood Partial Pressure CO2 48.1H, Arterial Blood Partial Pressure O2 51.6L, Arterial Blood HCO3 26.6H, Arterial Blood Oxygen Saturation 85.0*L, Arterial Blood Base Excess 0.8, Jonathan Test Positive Height (Feet): 6 Height (Inches): 1.00 Weight (Pounds): 190 Kulwant Hong M.D. Nov 18, 2020 08:59
--- NOTE | 2020-11-18 09:41 | Diagnostic Imaging Report ---
Indication: Dyspnea Technique: One view of the chest Comparison: 11/17/2020 Findings: Stable satisfactory position of orogastric tube. Endotracheal tube tip projects at or just above the thoracic inlet, just below the vocal cords. Bilateral infiltrates are unchanged previously demonstrated pneumomediastinum is no longer evident Impression: High position of endotracheal tube, tip just below the vocal cords. Advancement recommended. This critical value finding was phoned to ICU charge nurse Desire at the time of interpretation Stable bilateral infiltrates Largely resolved pneumomediastinum
[2020-11-18] MEDS: Metoprolol Tartrate 50mg tab ORAL SCH ×2 (09:48→20:53)
[2020-11-18] MEDS: Pantoprazole Inj IVP SCH (09:48)
[2020-11-18] MEDS: Docusate 100mg/10ml Liq GT SCH ×2 (09:48→20:51)
[2020-11-18] MEDS ORDERED: Lidocaine 1% Plain 30 ml INJ PRN (10:00)
[2020-11-18] MEDS ORDERED: Heparin1,000 units/500ml Premix(Conc:2 units/ml) IV PRN (10:00)
--- NOTE | 2020-11-18 10:55 | NUR ---
NURSE NOTES: Dr. Hong made aware that blood draws for morning labs have not been drawn. awaiting for phlebotomy to draw blood samples.
[2020-11-18] MEDS: Levemir Flexpen SUBQ SCH ×2 (11:05→21:00)
--- NOTE | 2020-11-18 11:21 | Neurology Progress Note ---
Interim History Interim History ROS Limited/Unobtainable: Yes Review of Systems Neuro Review of Systems unable to assess due to sedation Objective Physical Exam Last Vital Signs Date Time Temp Pulse Resp B/P (MAP) Pulse Ox O2 Delivery O2 Flow Rate FiO2 11/18/20 09:48 93 127/43 11/18/20 08:00 100 11/18/20 07:24 33 11/18/20 07:15 94 11/18/20 04:00 Mechanical Ventilator 11/18/20 00:00 99.8 11/10/20 00:02 15.0 Laboratory Tests Test 11/17/20 17:23 11/18/20 00:34 11/18/20 08:30 POC Whole Blood Glucose 291 MG/DL (74-106) H 316 MG/DL (74-106) H Arterial Blood pH 7.361 (7.350-7.450) Arterial Blood Partial Pressure CO2 48.1 mmHg (35.0-45.0) H Arterial Blood Partial Pressure O2 51.6 mmHg (75.0-100.0) L Arterial Blood HCO3 26.6 mmol/L (22.0-26.0) H Arterial Blood Oxygen Saturation 85.0 % (95-100) *L Arterial Blood Base Excess 0.8 (-2-2) Jonathan Test Positive Neurologic Exam Objective VITAL SIGNS: Blood pressure is 107/36, pulse of 83, he is on mechanical ventilation at 100% oxygen. Pulse oximetry revealed 100% saturation. Afebrile. GENERAL: For general physical examination, please refer to other physicians' examination for details. NEUROLOGIC: Mental status - the patient is sedated, although he does not follow commands. He is on bilateral wrist restraints. Cranial nerves II through XII are tested. Pupils are equal and reactive bilaterally. He does have extraocular movements, which are intact. There is no obvious facial asymmetry. He is currently intubated. Motor examination, the patient does have spontaneous movements of bilateral upper and lower extremities without any focal deficits. He does respond to painful stimulation bilaterally and withdraws both upper and lower extremities. Impression/Recommendations Status: stable Diagnostic Impression ASSESSMENT: 1. Acute metabolic encephalopathy, which appears to be improving. 2. Respiratory failure. 3. COVID-19 infection. 4. Diabetes mellitus. 5. Hypertension. 6. Hyperkalemia. 7. CKD. 8. Metabolic acidosis. Recommendations DISCUSSION AND PLAN: The patient presented with COVID-19 infection and has respiratory failure. His change in mental status was likely due to his multiple medical and electrolyte abnormalities. He appears to be somewhat responsive and according to medical record he is more responsive today than he was in the last couple of days. His examination does not reveal any focal abnormalities. I would like to obtain an imaging study of his brain when is more medically stable. He has not had any imaging study of his brain, so I will obtain a CT scan of the brain as when is possible, he is off any sedating medications. He was on propofol which could have contributed to his altered mental status. I will continue to monitor his neurological status during this hospitalization and provide further recommendations as necessary. Thank you for allowing us to participate in the care of this patient. Tessie Greco NP Nov 18, 2020 11:21
--- NOTE | 2020-11-18 11:46 | Pulmonology Progress Note ---
Subjective ROS Limited/Unobtainable: Yes Interval Events: No change in neuro status Constitutional: Reports: fever HEENT: Repors: no symptoms Respiratory: Reports: no symptoms Cardiovascular: Reports: no symptoms Gastrointestinal/Abdominal: Reports: no symptoms Allergies: Coded Allergies: No Known Allergies (Unverified , 11/06/20) Objective Last 24 Hour Vital Signs Date Time Temp Pulse Resp B/P (MAP) Pulse Ox O2 Delivery O2 Flow Rate FiO2 11/18/20 11:36 86 11/18/20 11:00 83 22 109/22 (51) 98 11/18/20 10:30 81 21 104/29 (54) 97 11/18/20 10:00 107 27 126/44 (71) 96 11/18/20 09:48 93 127/43 11/18/20 09:30 98 29 95/52 (66) 94 11/18/20 09:00 97 29 121/47 (71) 94 11/18/20 08:30 107 30 109/49 (69) 93 11/18/20 08:00 94 11/18/20 08:00 99.1 89 32 104/52 (69) 94 11/18/20 08:00 Mechanical Ventilator 11/18/20 08:00 100 11/18/20 07:30 93 30 112/50 (70) 93 11/18/20 07:24 104 33 100 11/18/20 07:15 93 30 94 11/18/20 07:00 112/50 11/18/20 07:00 95 31 94/35 (54) 94 11/18/20 06:45 89 25 114/39 (64) 94 11/18/20 06:30 91 32 107/54 (71) 94 11/18/20 06:15 93 27 114/38 (63) 94 11/18/20 06:00 93 25 116/46 (69) 93 11/18/20 06:00 114/38 11/18/20 05:45 95 27 114/42 (66) 92 11/18/20 05:30 112 29 111/41 (64) 92 11/18/20 05:15 101 12 97/39 (58) 78 11/18/20 05:00 97/39 11/18/20 05:00 100 21 118/51 (73) 92 11/18/20 04:45 99 27 111/44 (66) 92 11/18/20 04:30 97 26 109/54 (72) 93 11/18/20 04:15 97 27 115/37 (63) 94 11/18/20 04:00 Mechanical Ventilator 11/18/20 04:00 100 11/18/20 04:00 100 11/18/20 04:00 115/37 11/18/20 04:00 93 25 125/41 (69) 93 11/18/20 03:30 94 33 100 11/18/20 03:00 95/38 11/18/20 03:00 97 29 95/38 (57) 93 11/18/20 02:45 100 25 106/36 (59) 92 11/18/20 02:30 105 29 94/36 (55) 93 11/18/20 02:15 94 32 92/43 (59) 92 11/18/20 02:00 92/43 11/18/20 02:00 98 21 112/48 (69) 93 11/18/20 01:45 100 29 99/37 (57) 93 11/18/20 01:30 96 33 91/34 (53) 93 11/18/20 01:15 96 32 106/35 (58) 93 11/18/20 01:00 96 29 116/38 (64) 91 11/18/20 01:00 106/35 11/18/20 00:45 92 29 103/37 (59) 92 11/18/20 00:35 88/45 11/18/20 00:30 101 34 88/45 (59) 91 11/18/20 00:15 98 33 101/39 (59) 90 11/18/20 00:00 100 11/18/20 00:00 101/39 11/18/20 00:00 99.8 94 33 90/39 (56) 89 11/18/20 00:00 Mechanical Ventilator 11/18/20 00:00 100 11/17/20 23:45 89 32 96/36 (56) 93 11/17/20 23:30 95 26 101/32 (55) 94 11/17/20 23:15 92 23 106/36 (59) 95 11/17/20 23:00 91 27 106/36 (59) 96 11/17/20 23:00 106/36 11/17/20 22:45 89 25 108/42 (64) 96 11/17/20 22:44 94 32 100 11/17/20 22:30 94 27 93/40 (57) 97 11/17/20 22:15 93 25 89/35 (53) 96 11/17/20 22:00 96 30 94/42 (59) 95 11/17/20 22:00 94/42 11/17/20 21:45 99 28 91/43 (59) 95 11/17/20 21:30 102 29 93/42 (59) 93 11/17/20 21:18 99 99/46 11/17/20 21:15 103 33 99/46 (63) 92 11/17/20 21:00 109 34 74/48 (57) 93 11/17/20 21:00 74/48 11/17/20 20:45 117 19 124/41 (68) 97 11/17/20 20:30 116 10 110/50 (70) 96 11/17/20 20:15 114 18 111/51 (71) 96 11/17/20 20:00 Mechanical Ventilator 11/17/20 20:00 99.0 114 13 117/46 (69) 95 11/17/20 20:00 120 11/17/20 20:00 117/46 11/17/20 20:00 100 11/17/20 19:45 109 18 113/44 (67) 98 11/17/20 19:37 106 24 114/65 (81) 98 11/17/20 19:30 108 36 100 11/17/20 19:30 102 17 83/39 (54) 97 11/17/20 19:21 104 18 103/48 (66) 98 11/17/20 19:15 106 18 90/38 (55) 98 11/17/20 19:00 98/78 11/17/20 19:00 109 20 98/78 (85) 100 11/17/20 18:45 109 20 102/46 (64) 100 11/17/20 18:30 111 18 93/44 (60) 99 11/17/20 18:15 115 14 99/50 (66) 95 11/17/20 18:11 100 11/17/20 18:00 84/48 11/17/20 18:00 111 32 84/48 (60) 88 11/17/20 17:45 114 39 105/56 (72) 95 11/17/20 17:30 119 40 105/58 (74) 94 11/17/20 17:15 121 36 125/56 (79) 97 11/17/20 17:00 135/48 11/17/20 17:00 120 38 135/48 (77) 96 11/17/20 16:45 118 37 124/42 (69) 97 11/17/20 16:32 100.0 11/17/20 16:30 116 39 133/62 (85) 96 11/17/20 16:15 117 37 128/55 (79) 100 11/17/20 16:00 101.0 119 39 109/56 (73) 100 11/17/20 16:00 Mechanical Ventilator 11/17/20 16:00 80 11/17/20 16:00 109/56 11/17/20 15:45 120 40 137/46 (76) 99 11/17/20 15:30 118 39 134/43 (73) 98 11/17/20 15:18 120 11/17/20 15:15 120 39 137/44 (75) 99 11/17/20 15:05 78 28 100 11/17/20 15:00 80 11/17/20 15:00 132/44 11/17/20 15:00 119 40 132/44 (73) 98 11/17/20 14:45 118 38 132/61 (84) 98 11/17/20 14:30 119 40 121/54 (76) 97 11/17/20 14:15 119 43 131/44 (73) 98 11/17/20 14:00 133/45 11/17/20 14:00 120 43 133/45 (74) 99 11/17/20 13:45 120 40 114/46 (68) 98 11/17/20 13:37 113/47 11/17/20 13:30 119 38 113/47 (69) 99 11/17/20 13:00 115 42 115/53 (73) 100 11/17/20 13:00 115/53 11/17/20 12:00 Mechanical Ventilator 11/17/20 12:00 100.1 110 17 100/55 (70) 99 11/17/20 12:00 100/55 11/17/20 12:00 100 Intake and Output0 11/17/20 11/18/20 19:00 07:00 Intake Total 3290.760 ml 2272.628 ml Output Total 965 ml 650 ml Balance 2325.760 ml 1622.628 ml Free Water 1500 ml 1200 ml IV Total 850.760 ml 292.628 ml Tube Feeding 780 ml 780 ml Other 160 ml Output Urine Total 965 ml 650 ml # Bowel Movements 1 General Appearance: no acute distress HEENT: normocephalic Respiratory: chest wall non-tender, lungs clear Cardiovascular: normal peripheral pulses, normal rate Abdomen: normal bowel sounds Laboratory Tests 11/17/20 17:23: POC Whole Blood Glucose 291H 11/18/20 00:34: POC Whole Blood Glucose 316H 11/18/20 08:30: Arterial Blood pH 7.361, Arterial Blood Partial Pressure CO2 48.1H, Arterial Blood Partial Pressure O2 51.6L, Arterial Blood HCO3 26.6H, Arterial Blood Oxygen Saturation 85.0*L, Arterial Blood Base Excess 0.8, Jonathan Test Positive Current Medications Medications (Trade) Dose Ordered Sig/Violet Route PRN Reason Start Time Stop Time Status Last Admin Dose Admin Acetaminophen (Tylenol) 650 mg Q4H PRN GT Temp >100.5 11/12/20 11:00 12/12/20 10:44 11/17/20 16:02 Chlorhexidine Gluconate (Patt-Hex 2%) 1 applic DAILY@2000 TOPIC 11/17/20 20:00 02/15/21 19:59 11/17/20 21:17 Dextrose 1,000 ml @ 0 mls/hr Q0M IV 11/17/20 10:30 12/17/20 10:29 Dextrose (Dextrose 50%) 25 ml Q30M PRN IV Hypoglycemia 11/06/20 20:00 02/04/21 19:59 Dextrose (Dextrose 50%) 50 ml Q30M PRN IV Hypoglycemia 11/06/20 20:00 02/04/21 19:59 Docusate Sodium (Colace) 100 mg EVERY 12 HOURS GT 11/17/20 21:00 12/14/20 17:59 11/18/20 09:48 Dopamine HCl/ Dextrose 250 ml @ 0 mls/hr Q24H IV 11/16/20 14:00 11/19/20 13:56 12/28/20 00:35 Enoxaparin Sodium (Lovenox) 40 mg Q24H SUBQ 11/07/20 21:00 02/05/21 20:59 11/17/20 21:21 Flumazenil (Romazicon) 0.2 mg NEEDED PRN IV Sedation reversal 11/06/20 20:00 Heparin Sodium/ Sodium Chloride (Heparin 1000 units/500ml Premix) 1,000 unit ONCE PRN IV PICC LINE 11/18/20 10:00 11/19/20 09:59 Insulin Aspart (NovoLOG) EVERY 6 HOURS SUBQ 11/08/20 12:00 02/05/21 16:29 11/18/20 06:00 Insulin Detemir (Levemir) 14 units EVERY 12 HOURS SUBQ 11/13/20 09:00 02/05/21 20:59 11/18/20 11:05 Lidocaine HCl (Xylocaine 1% 30ml) 30 ml ONCE PRN INJ PICC LINE 11/18/20 10:00 11/20/20 09:59 Metoclopramide HCl (Reglan) 5 mg Q6HR IVP 11/14/20 12:26 12/14/20 12:25 11/18/20 06:00 Metoprolol Tartrate (Lopressor) 50 mg Q12HR ORAL 11/14/20 23:15 02/12/21 23:14 11/18/20 09:48 Naloxone HCl (Narcan) 0.4 mg NEEDED PRN IVP RR less than 6/min 11/06/20 20:00 02/04/21 19:59 Norepinephrine Bitartrate 250 ml @ 0 mls/hr Q24H PRN IV hypotension 11/17/20 19:30 11/20/20 19:29 Ondansetron HCl (Zofran) 4 mg Q6H PRN IVP Nausea & Vomiting 11/06/20 20:00 12/06/20 19:59 Pantoprazole (Protonix) 40 mg DAILY IVP 11/08/20 09:00 12/08/20 08:59 11/18/20 09:48 Piperacillin Sod/ Tazobactam Sod 3.375 gm/Sodium Chloride 110 ml @ 27.5 mls/hr Q8HR IVPB 11/17/20 22:00 11/24/20 21:59 11/18/20 06:00 Polyethylene Glycol (Miralax) 17 gm BEDTIME GT 11/14/20 21:00 12/14/20 20:59 11/17/20 21:16 Vancomycin HCl ([facility] pharmacy to dose) 1 ea DAILY PRN MISC Per rx protocol 11/17/20 11:30 12/17/20 11:29 Assessment/Plan Assessment/Plan IMPRESSION: 1. COVID-19 pneumonia. 2. Diabetes mellitus. 3. Hypertension. 4. Hyperkalemia. 5. CKD. 6. Metabolic acidosis. 7. Respiratory Failure; Acute Lung Injury 9. Change in mental status; will dc sedation; continue vent; may need head CT DISCUSSION: Continue broad-spectrum antibiotics. Continue vent/AC mode Currently FiO2 100%; PEEP 5 ABG 7.36/48/51 PEEP increased to 10 Endo tracheal tube adjusted; pt holding volumes on vent now Blood sugar control, Continue Decadron. Off propofol Check labs and ABG AM CXR unchanged Noted neurology evaluation Rahat Gaspar M.D. Rahat Gaspar MD Nov 18, 2020 11:46
--- NOTE | 2020-11-18 12:15 | NUR ---
NURSE NOTES: dr. eng ordered to have lasix 60mg to be given to lb, he is noted to be +2 edematous throughout the entire body. remains on dopamine at 10mcg/kg/min. Order for Levophed discontinues by dr. Eng.
--- NOTE | 2020-11-18 12:21 | Infectious Diseases Prog Note ---
Assessment/Plan Assessment/Plan antibiotics : vancomycin iv, zosyn, A 1. COVID 19 pneumonia on 80 % Fi O2, saturation 100 % s/p remdesivir s/p dexamethasone 2. respiratory failure 3. diabetes mellitus 4. hypertension 5. renal failure improving P 1. continue iv vancomycin, zosyn 2. continue solumedrol 3. continue isolation Subjective ROS Limited/Unobtainable: Yes Allergies: Coded Allergies: No Known Allergies (Unverified , 11/06/20) Objective Last 24 Hour Vital Signs Date Time Temp Pulse Resp B/P (MAP) Pulse Ox O2 Delivery O2 Flow Rate FiO2 11/18/20 11:36 86 11/18/20 11:00 83 22 109/22 (51) 98 11/18/20 11:00 109/22 11/18/20 10:30 81 21 104/29 (54) 97 11/18/20 10:30 104/29 11/18/20 10:15 89/22 11/18/20 10:00 89/71 11/18/20 10:00 107 27 126/44 (71) 96 11/18/20 09:48 93 127/43 11/18/20 09:30 98 29 95/52 (66) 94 11/18/20 09:00 97 29 121/47 (71) 94 11/18/20 08:30 107 30 109/49 (69) 93 11/18/20 08:00 94 11/18/20 08:00 99.1 89 32 104/52 (69) 94 11/18/20 08:00 Mechanical Ventilator 11/18/20 08:00 100 11/18/20 07:30 93 30 112/50 (70) 93 11/18/20 07:24 104 33 100 11/18/20 07:15 93 30 94 11/18/20 07:00 112/50 11/18/20 07:00 95 31 94/35 (54) 94 11/18/20 06:45 89 25 114/39 (64) 94 11/18/20 06:30 91 32 107/54 (71) 94 11/18/20 06:15 93 27 114/38 (63) 94 11/18/20 06:00 93 25 116/46 (69) 93 11/18/20 06:00 114/38 11/18/20 05:45 95 27 114/42 (66) 92 11/18/20 05:30 112 29 111/41 (64) 92 11/18/20 05:15 101 12 97/39 (58) 78 11/18/20 05:00 97/39 11/18/20 05:00 100 21 118/51 (73) 92 11/18/20 04:45 99 27 111/44 (66) 92 11/18/20 04:30 97 26 109/54 (72) 93 11/18/20 04:15 97 27 115/37 (63) 94 11/18/20 04:00 Mechanical Ventilator 11/18/20 04:00 100 11/18/20 04:00 100 11/18/20 04:00 115/37 11/18/20 04:00 93 25 125/41 (69) 93 11/18/20 03:30 94 33 100 11/18/20 03:00 95/38 11/18/20 03:00 97 29 95/38 (57) 93 11/18/20 02:45 100 25 106/36 (59) 92 11/18/20 02:30 105 29 94/36 (55) 93 11/18/20 02:15 94 32 92/43 (59) 92 11/18/20 02:00 92/43 11/18/20 02:00 98 21 112/48 (69) 93 11/18/20 01:45 100 29 99/37 (57) 93 11/18/20 01:30 96 33 91/34 (53) 93 11/18/20 01:15 96 32 106/35 (58) 93 11/18/20 01:00 96 29 116/38 (64) 91 11/18/20 01:00 106/35 11/18/20 00:45 92 29 103/37 (59) 92 11/18/20 00:35 88/45 11/18/20 00:30 101 34 88/45 (59) 91 11/18/20 00:15 98 33 101/39 (59) 90 11/18/20 00:00 100 11/18/20 00:00 101/39 11/18/20 00:00 99.8 94 33 90/39 (56) 89 11/18/20 00:00 Mechanical Ventilator 11/18/20 00:00 100 11/17/20 23:45 89 32 96/36 (56) 93 11/17/20 23:30 95 26 101/32 (55) 94 11/17/20 23:15 92 23 106/36 (59) 95 11/17/20 23:00 91 27 106/36 (59) 96 11/17/20 23:00 106/36 11/17/20 22:45 89 25 108/42 (64) 96 11/17/20 22:44 94 32 100 11/17/20 22:30 94 27 93/40 (57) 97 11/17/20 22:15 93 25 89/35 (53) 96 11/17/20 22:00 96 30 94/42 (59) 95 11/17/20 22:00 94/42 11/17/20 21:45 99 28 91/43 (59) 95 11/17/20 21:30 102 29 93/42 (59) 93 11/17/20 21:18 99 99/46 11/17/20 21:15 103 33 99/46 (63) 92 11/17/20 21:00 109 34 74/48 (57) 93 11/17/20 21:00 74/48 11/17/20 20:45 117 19 124/41 (68) 97 11/17/20 20:30 116 10 110/50 (70) 96 11/17/20 20:15 114 18 111/51 (71) 96 11/17/20 20:00 Mechanical Ventilator 11/17/20 20:00 99.0 114 13 117/46 (69) 95 11/17/20 20:00 120 11/17/20 20:00 117/46 11/17/20 20:00 100 11/17/20 19:45 109 18 113/44 (67) 98 11/17/20 19:37 106 24 114/65 (81) 98 11/17/20 19:30 108 36 100 11/17/20 19:30 102 17 83/39 (54) 97 11/17/20 19:21 104 18 103/48 (66) 98 11/17/20 19:15 106 18 90/38 (55) 98 11/17/20 19:00 98/78 11/17/20 19:00 109 20 98/78 (85) 100 11/17/20 18:45 109 20 102/46 (64) 100 12/27/20 18:30 111 18 93/44 (60) 99 11/17/20 18:15 115 14 99/50 (66) 95 11/17/20 18:11 100 11/17/20 18:00 84/48 11/17/20 18:00 111 32 84/48 (60) 88 11/17/20 17:45 114 39 105/56 (72) 95 11/17/20 17:30 119 40 105/58 (74) 94 11/17/20 17:15 121 36 125/56 (79) 97 11/17/20 17:00 135/48 11/17/20 17:00 120 38 135/48 (77) 96 11/17/20 16:45 118 37 124/42 (69) 97 11/17/20 16:32 100.0 11/17/20 16:30 116 39 133/62 (85) 96 11/17/20 16:15 117 37 128/55 (79) 100 11/17/20 16:00 101.0 119 39 109/56 (73) 100 11/17/20 16:00 Mechanical Ventilator 11/17/20 16:00 80 11/17/20 16:00 109/56 11/17/20 15:45 120 40 137/46 (76) 99 11/17/20 15:30 118 39 134/43 (73) 98 11/17/20 15:18 120 11/17/20 15:15 120 39 137/44 (75) 99 11/17/20 15:05 78 28 100 11/17/20 15:00 80 11/17/20 15:00 132/44 11/17/20 15:00 119 40 132/44 (73) 98 11/17/20 14:45 118 38 132/61 (84) 98 11/17/20 14:30 119 40 121/54 (76) 97 11/17/20 14:15 119 43 131/44 (73) 98 11/17/20 14:00 133/45 11/17/20 14:00 120 43 133/45 (74) 99 11/17/20 13:45 120 40 114/46 (68) 98 11/17/20 13:37 113/47 11/17/20 13:30 119 38 113/47 (69) 99 11/17/20 13:00 115 42 115/53 (73) 100 11/17/20 13:00 115/53 Height (Feet): 6 Height (Inches): 1.00 Weight (Pounds): 190 Laboratory Tests Test 11/17/20 17:23 11/18/20 00:34 11/18/20 08:30 POC Whole Blood Glucose 291 MG/DL (74-106) H 316 MG/DL (74-106) H Arterial Blood pH 7.361 (7.350-7.450) Arterial Blood Partial Pressure CO2 48.1 mmHg (35.0-45.0) H Arterial Blood Partial Pressure O2 51.6 mmHg (75.0-100.0) L Arterial Blood HCO3 26.6 mmol/L (22.0-26.0) H Arterial Blood Oxygen Saturation 85.0 % (95-100) *L Arterial Blood Base Excess 0.8 (-2-2) Jonathan Test Positive Current Medications Medications (Trade) Dose Ordered Sig/Violet Route PRN Reason Start Time Stop Time Status Last Admin Dose Admin Acetaminophen (Tylenol) 650 mg Q4H PRN GT Temp >100.5 11/12/20 11:00 12/12/20 10:44 11/17/20 16:02 Chlorhexidine Gluconate (Patt-Hex 2%) 1 applic DAILY@2000 TOPIC 11/17/20 20:00 02/15/21 19:59 11/17/20 21:17 Dextrose 1,000 ml @ 0 mls/hr Q0M IV 11/17/20 10:30 12/17/20 10:29 Dextrose (Dextrose 50%) 25 ml Q30M PRN IV Hypoglycemia 11/06/20 20:00 02/04/21 19:59 Dextrose (Dextrose 50%) 50 ml Q30M PRN IV Hypoglycemia 11/06/20 20:00 02/04/21 19:59 Docusate Sodium (Colace) 100 mg EVERY 12 HOURS GT 11/17/20 21:00 12/14/20 17:59 11/18/20 09:48 Dopamine HCl/ Dextrose 250 ml @ 0 mls/hr Q24H IV 11/16/20 14:00 11/19/20 13:56 11/18/20 00:35 Enoxaparin Sodium (Lovenox) 40 mg Q24H SUBQ 11/07/20 21:00 02/05/21 20:59 11/17/20 21:21 Flumazenil (Romazicon) 0.2 mg NEEDED PRN IV Sedation reversal 11/06/20 20:00 Heparin Sodium/ Sodium Chloride (Heparin 1000 units/500ml Premix) 1,000 unit ONCE PRN IV PICC LINE 11/18/20 10:00 11/19/20 09:59 Insulin Aspart (NovoLOG) EVERY 6 HOURS SUBQ 11/08/20 12:00 02/05/21 16:29 11/18/20 06:00 Insulin Detemir (Levemir) 14 units EVERY 12 HOURS SUBQ 11/13/20 09:00 02/05/21 20:59 11/18/20 11:05 Lidocaine HCl (Xylocaine 1% 30ml) 30 ml ONCE PRN INJ PICC LINE 11/18/20 10:00 11/20/20 09:59 Metoclopramide HCl (Reglan) 5 mg Q6HR IVP 11/14/20 12:26 12/14/20 12:25 11/18/20 06:00 Metoprolol Tartrate (Lopressor) 50 mg Q12HR ORAL 11/14/20 23:15 02/12/21 23:14 11/18/20 09:48 Naloxone HCl (Narcan) 0.4 mg NEEDED PRN IVP RR less than 6/min 11/06/20 20:00 02/04/21 19:59 Norepinephrine Bitartrate 250 ml @ 0 mls/hr Q24H PRN IV hypotension 11/17/20 19:30 11/20/20 19:29 Ondansetron HCl (Zofran) 4 mg Q6H PRN IVP Nausea & Vomiting 11/06/20 20:00 12/06/20 19:59 Pantoprazole (Protonix) 40 mg DAILY IVP 11/08/20 09:00 12/08/20 08:59 11/18/20 09:48 Piperacillin Sod/ Tazobactam Sod 3.375 gm/Sodium Chloride 110 ml @ 27.5 mls/hr Q8HR IVPB 11/17/20 22:00 11/24/20 21:59 11/18/20 06:00 Polyethylene Glycol (Miralax) 17 gm BEDTIME GT 11/14/20 21:00 12/14/20 20:59 11/17/20 21:16 Vancomycin HCl ([facility] pharmacy to dose) 1 ea DAILY PRN MISC Per rx protocol 11/17/20 11:30 12/17/20 11:29 Gabby White MD Nov 18, 2020 12:21
--- NOTE | 2020-11-18 12:27 | General Progress Note ---
Subjective Date patient seen: Nov 18, 2020 ROS Limited/Unobtainable: Yes Allergies: Coded Allergies: No Known Allergies (Unverified , 11/06/20) Subjective Patient with pneumomediastinum on CXR yesterday. Decreased I-time on vent after discussion with RT. Today, CXR shows improvement in pneumomediastinum. Started antibiotics again yesterday. Patient remains at 100% FiO2. On AC/VC. Vent settings reviewed. No significant change in mental status. ROS: unable to obtain due to ALOC Objective Last 24 Hour Vital Signs Date Time Temp Pulse Resp B/P (MAP) Pulse Ox O2 Delivery O2 Flow Rate FiO2 11/18/20 11:36 86 11/18/20 11:00 83 22 109/22 (51) 98 11/18/20 11:00 109/22 11/18/20 10:30 81 21 104/29 (54) 97 11/18/20 10:30 104/29 11/18/20 10:15 89/22 11/18/20 10:00 89/71 11/18/20 10:00 107 27 126/44 (71) 96 11/18/20 09:48 93 127/43 11/18/20 09:30 98 29 95/52 (66) 94 11/18/20 09:00 97 29 121/47 (71) 94 11/18/20 08:30 107 30 109/49 (69) 93 11/18/20 08:00 94 11/18/20 08:00 99.1 89 32 104/52 (69) 94 11/18/20 08:00 Mechanical Ventilator 11/18/20 08:00 100 11/18/20 07:30 93 30 112/50 (70) 93 11/18/20 07:24 104 33 100 11/18/20 07:15 93 30 94 11/18/20 07:00 112/50 11/18/20 07:00 95 31 94/35 (54) 94 11/18/20 06:45 89 25 114/39 (64) 94 11/18/20 06:30 91 32 107/54 (71) 94 11/18/20 06:15 93 27 114/38 (63) 94 11/18/20 06:00 93 25 116/46 (69) 93 11/18/20 06:00 114/38 11/18/20 05:45 95 27 114/42 (66) 92 11/18/20 05:30 112 29 111/41 (64) 92 11/18/20 05:15 101 12 97/39 (58) 78 11/18/20 05:00 97/39 11/18/20 05:00 100 21 118/51 (73) 92 11/18/20 04:45 99 27 111/44 (66) 92 11/18/20 04:30 97 26 109/54 (72) 93 11/18/20 04:15 97 27 115/37 (63) 94 11/18/20 04:00 Mechanical Ventilator 11/18/20 04:00 100 11/18/20 04:00 100 11/18/20 04:00 115/37 11/18/20 04:00 93 25 125/41 (69) 93 11/18/20 03:30 94 33 100 11/18/20 03:00 95/38 11/18/20 03:00 97 29 95/38 (57) 93 11/18/20 02:45 100 25 106/36 (59) 92 11/18/20 02:30 105 29 94/36 (55) 93 11/18/20 02:15 94 32 92/43 (59) 92 11/18/20 02:00 92/43 11/18/20 02:00 98 21 112/48 (69) 93 11/18/20 01:45 100 29 99/37 (57) 93 11/18/20 01:30 96 33 91/34 (53) 93 11/18/20 01:15 96 32 106/35 (58) 93 11/18/20 01:00 96 29 116/38 (64) 91 11/18/20 01:00 106/35 11/18/20 00:45 92 29 103/37 (59) 92 11/18/20 00:35 88/45 11/18/20 00:30 101 34 88/45 (59) 91 11/18/20 00:15 98 33 101/39 (59) 90 11/18/20 00:00 100 11/18/20 00:00 101/39 11/18/20 00:00 99.8 94 33 90/39 (56) 89 11/18/20 00:00 Mechanical Ventilator 11/18/20 00:00 100 11/17/20 23:45 89 32 96/36 (56) 93 11/17/20 23:30 95 26 101/32 (55) 94 11/17/20 23:15 92 23 106/36 (59) 95 11/17/20 23:00 91 27 106/36 (59) 96 11/17/20 23:00 106/36 11/17/20 22:45 89 25 108/42 (64) 96 11/17/20 22:44 94 32 100 11/17/20 22:30 94 27 93/40 (57) 97 11/17/20 22:15 93 25 89/35 (53) 96 11/17/20 22:00 96 30 94/42 (59) 95 11/17/20 22:00 94/42 11/17/20 21:45 99 28 91/43 (59) 95 11/17/20 21:30 102 29 93/42 (59) 93 11/17/20 21:18 99 99/46 11/17/20 21:15 103 33 99/46 (63) 92 11/17/20 21:00 109 34 74/48 (57) 93 11/17/20 21:00 74/48 11/17/20 20:45 117 19 124/41 (68) 97 11/17/20 20:30 116 10 110/50 (70) 96 11/17/20 20:15 114 18 111/51 (71) 96 11/17/20 20:00 Mechanical Ventilator 11/17/20 20:00 99.0 114 13 117/46 (69) 95 11/17/20 20:00 120 11/17/20 20:00 117/46 11/17/20 20:00 100 11/17/20 19:45 109 18 113/44 (67) 98 11/17/20 19:37 106 24 114/65 (81) 98 11/17/20 19:30 108 36 100 11/17/20 19:30 102 17 83/39 (54) 97 11/17/20 19:21 104 18 103/48 (66) 98 11/17/20 19:15 106 18 90/38 (55) 98 11/17/20 19:00 98/78 11/17/20 19:00 109 20 98/78 (85) 100 11/17/20 18:45 109 20 102/46 (64) 100 11/17/20 18:30 111 18 93/44 (60) 99 11/17/20 18:15 115 14 99/50 (66) 95 11/17/20 18:11 100 11/17/20 18:00 84/48 11/17/20 18:00 111 32 84/48 (60) 88 11/17/20 17:45 114 39 105/56 (72) 95 11/17/20 17:30 119 40 105/58 (74) 94 11/17/20 17:15 121 36 125/56 (79) 97 11/17/20 17:00 135/48 11/17/20 17:00 120 38 135/48 (77) 96 11/17/20 16:45 118 37 124/42 (69) 97 11/17/20 16:32 100.0 11/17/20 16:30 116 39 133/62 (85) 96 11/17/20 16:15 117 37 128/55 (79) 100 11/17/20 16:00 101.0 119 39 109/56 (73) 100 11/17/20 16:00 Mechanical Ventilator 11/17/20 16:00 80 11/17/20 16:00 109/56 11/17/20 15:45 120 40 137/46 (76) 99 11/17/20 15:30 118 39 134/43 (73) 98 11/17/20 15:18 120 11/17/20 15:15 120 39 137/44 (75) 99 11/17/20 15:05 78 28 100 11/17/20 15:00 80 11/17/20 15:00 132/44 11/17/20 15:00 119 40 132/44 (73) 98 11/17/20 14:45 118 38 132/61 (84) 98 11/17/20 14:30 119 40 121/54 (76) 97 11/17/20 14:15 119 43 131/44 (73) 98 11/17/20 14:00 133/45 11/17/20 14:00 120 43 133/45 (74) 99 11/17/20 13:45 120 40 114/46 (68) 98 11/17/20 13:37 113/47 11/17/20 13:30 119 38 113/47 (69) 99 11/17/20 13:00 115 42 115/53 (73) 100 11/17/20 13:00 115/53 Intake and Output 11/17/20 11/18/20 18:59 06:59 Intake Total 3289.369 ml 2264.519 ml Output Total 965 ml 640 ml Balance 2324.369 ml 1624.519 ml Free Water 1500 ml 1200 ml IV Total 849.369 ml 284.519 ml Tube Feeding 780 ml 780 ml Other 160 ml Output Urine Total 965 ml 640 ml # Bowel Movements 1 Laboratory Tests 11/17/20 17:23: POC Whole Blood Glucose 291H 11/18/20 00:34: POC Whole Blood Glucose 316H 11/18/20 08:30: Arterial Blood pH 7.361, Arterial Blood Partial Pressure CO2 48.1H, Arterial Blood Partial Pressure O2 51.6L, Arterial Blood HCO3 26.6H, Arterial Blood Oxygen Saturation 85.0*L, Arterial Blood Base Excess 0.8, Jonathan Test Positive Height (Feet): 6 Height (Inches): 1.00 Weight (Pounds): 190 Objective General: Male A&O x 0. intubated. No carolyn bleeding noted. HEENT: Normocephalic cephalic atraumatic, nares patent and no symmetrical, no tonsillar exudates, mucous membranes moist CV: Regular rate regular rhythm, no murmurs, rubs, or gallops Pulm: Lungs coarse breath sounds bilaterally. No wheezes, rhonchi, or rales GI: Soft, nontender, nondistended, bowel sounds present Neuro: Moving all extremities Ext: No lower extremity edema bilaterally Skin: no rashes lesions or ulcers. Msk: Joints symmetrical in upper extremity and lower extremity bilaterally, no joint swelling. Lymph: No lymphadenopathy in upper extremity and lower extremity Assessment/Plan Status: stable Assessment/Plan: 84 yo M w DM2, HTN, ? CKD admitted for Covid19 PNA with SAMEER #Septic shock # acute hypoxemia Resp failure 2/2 covid PNA - needing lower PEEP today > s/p intubation on 11/07/20. EtTube out on 11/11 but re-inserted # Covid PNA - #Pneumomediastinum # Lactic acid elevation # elevated D dimer # Trop elevated - Patient full code. See Advanced care plan note. Will continue discussions as patient progresses - s/p IVF bolus in ED, will keep lung dry as much as possible - s/p decadron 6mg iv daily - s/p solumedrol Q12hr (11/08 started) - s/p Remdesivir per ID (11/09 started) - s/p azithromycin (11/08 started ) - s/p Vancomycin (11/09 started) - s/p Zosyn (11/09 started) - Blood and urine culture, central line culture - replace fem line with PICC today - Restarted Vanc/Zosyn (11/17 - ) - CXR with improvement with pneumomediastinum - Abx per ID - pulm consult: Chasity - ID consult: Steven - Aneesh consult - trend ABG: reviewed - Continue Ac/VC - propofol for sedation - monitor triglycerides - Wean vent as tolerated - s/p NG tube 11/07 for meds. start tube feeding - IV fluids per nephro #S. hominis bacteremia, Contaminant? Defer to ID #Bilateral superimposed pneumonia - ID consulted: Dr. Harris - Follow surveilance cultures - Vanc per pharm (11/08 - ) - Zosyn (11/08 - ) #Anemia - concern for GI bleed - Hgb stable - GI consult Dr. Saavedra # Malnutrition #HTN, current normotensive - Tube feedings - Appreciate surgery recs - D/w RN # DM2 uncontrolled #hyperglycemia - detemir 10 units BID - continue SSI - accuchecks - hypoglycemia protocol # SAMEER vs. SAMEER on CKD, likely prerenal #Uremia # Dehydration - renal consult - Gentle IV fluids - i/o monitor, montilla cath FENPPX DVTPPX: lovenox GI PPX: protonix Fluids: per nephro Diet: NPO, tube feedings PT/OT: deferred Code status: Full code Dispo: SNF eventually. Guarded prognosis. Family aware Reason for Continued Hospitalization: Hypoxia Time of my involvement, the patient's condition was critical with high potential for and/or physiologic deterioration secondary to acute hypoxic respiratory failure as delineated in the note above. On the above date of service, I spent a total of 43 minutes in the ICU evaluating, managing, and providing critical care services to this patient, including time spent documenting these activities, counseling patient/family, and coordinating care. Critical care services performed include: -Telemetry review -Hemodynamic measurement interpretation -Laboratory data review and interpretation -Vent setting reviewed, management -Discussion of care plans with patient, family, and/or surrogate decision makers -Discussion of patient's care with medical team, surgical team, and/or consulting service -Decision to obtain further radiologic evaluation, after consideration of the risk/benefit ratio -Review of most recent microbiology results assessment and modification of antimicrobial coverage -Discussion of patient's CODE STATUS and further advancement towards the ultimate goals of care. Plan outlined above discussed with patient/family, MANAGER USER INTERFACE, ICU team, and involved physician/consultants. Time of note not necessarily time patient was seen Rudy Poole M.D. Nov 18, 2020 12:27
--- NOTE | 2020-11-18 12:28 | NUR ---
RADIOLOGY DEPT., CHEST X-RAY DONE.-P.DYE
[2020-11-18] MEDS: Solu-MEDROL 40mg Inj IVP SCH ×2 (12:41→21:08)
[2020-11-18 12:45] LABS: HEMATOCRIT 31.6 % (42.0-52.0); MEAN CORPUSCULAR VOLUME 90 FL (80-99); PLATELET COUNT 175 K/UL (150-450); RED BLOOD COUNT 3.51 M/UL (4.70-6.10); WHITE BLOOD COUNT 16.7 K/UL (4.8-10.8)
[2020-11-18 13:35] LABS: PHOSPHORUS 3.9 MG/DL (2.5-4.9)
[2020-11-18 13:37] LABS: CALCIUM 8.2 MG/DL (8.5-10.1); CREATININE 2.2 MG/DL (0.55-1.30)
--- NOTE | 2020-11-18 14:00 | NUR ---
RADIOLOGY NOTE: RIGHT UPPER EXTREMITY PICC PLACED
--- NOTE | 2020-11-18 14:20 | NUR ---
NURSE NOTES: Dr. Hong notified of BMP results with sodium of 150, potassium of 6.0, BUN at 153 and creatinine at 2.2, ordered to have Kayexalate 45 gm po, Lasix 80 mg in one hours, d5w at 500 bolus, and BMP at 1900.
[2020-11-18] MEDS ORDERED: Sodium Polystyrene Sulfonate 15gm Powder ORAL SCH (14:30)
[2020-11-18] MEDS: Acetaminophen 650mg/20.3ml GT PRN (14:55)
--- NOTE | 2020-11-18 15:15 | Brief Operative Note ---
Immediate Post Operative Note Operative Note Pre-op Diagnosis: needs IV access Procedure: PICC Post-op Diagnosis: same as pre-op Surgeon: Adan ARELLANO Anesthesia: local Specimen: none Complications: none Fluids: none Implant(s) used?: No Rafa Arellano MD Nov 18, 2020 15:15
--- NOTE | 2020-11-18 15:34 | Diagnostic Imaging Report ---
Indications: Needs long-term IV access Technique: Procedure performed at bedside. Procedural timeout performed. Ultrasound confirms patent compressible right basilic vein. Total sterile technique, including sterile probe cover and sterile gel, sterile gloves, hand hygiene, hat, mask,, sterile gown, large sterile drape, and preparation with 2% chlorhexidine utilized. Local anesthesia with 1% lidocaine. Under real-time ultrasound guidance, puncture silhouette vein using 21-gauge needle, passage 0.018 guidewire, exchange for 4 Cuban peel-away sheath. 4 Cuban 33 dual-lumen power PICC cut to cm. It was inserted through the peel-away sheath. Peel-away sheath and guidewire removed. Catheter fixed to the skin. Both catheter ports aspirated and flushed. Patient tolerated procedure well, without immediate complication. Followup chest x-ray obtained, documents catheter tip position at the cavoatrial junction Impression: Successful bedside placement of right arm PICC under sonographic guidance, as described above.
--- NOTE | 2020-11-18 16:00 | NUR ---
NURSE NOTES: Kaxelate 45gm given by PO and flushed with 400ml of water. patient also given tylenol for temperature of 100.5 F.
--- NOTE | 2020-11-18 16:14 | NUR ---
CASE MANAGEMENT:REVIEW 11/18/20 SI: COVID PNA. SEPSIS. RESP FAILURE ~ INTUBATED 99.1 107 27 126/44 89/71 96% ON VENT SUPPORT W/100% FIO2 WBC+16.7 NA+150 K+6.0 BUN+153 CR+2.2 IS: IV LASIX X1 KAYEXALATE NG X1 IV SOLUMEDROL Q12 IV ZOSYN Q8HRS DOPAMINE GTT LOPRESSOR NG Q12 LOVENOX SQ Q24 : ICU STATUS DCP: FROM HOME
--- NOTE | 2020-11-18 16:35 | NUR ---
NURSE NOTES: Dr. Gaspar noticed patient was changed to PC at 30 with FIO2 of 100% and peep of 10, to maintain patient at these settings.
--- NOTE | 2020-11-18 17:46 | Surgery Progress Note ---
Surgery Progress Note Subjective Procedure Performed Right femoral central venous catheter insertion Additional Comments picc today no n/v ill appearing on support Objective Last 24 Hour Vital Signs Date Time Temp Pulse Resp B/P (MAP) Pulse Ox O2 Delivery O2 Flow Rate FiO2 11/18/20 17:00 112 37 106/12 (43) 97 11/18/20 16:30 116 36 102/17 (45) 93 11/18/20 16:00 100.0 113 35 114/32 (59) 93 11/18/20 16:00 100.0 11/18/20 16:00 118 11/18/20 16:00 Mechanical Ventilator 11/18/20 15:30 117 36 107/14 (45) 94 11/18/20 15:21 116 34 100 11/18/20 15:00 117 35 121/31 (61) 93 11/18/20 14:30 118 36 113/29 (57) 94 11/18/20 14:00 118 35 142/33 (69) 92 11/18/20 13:30 108 37 88/19 (42) 92 11/18/20 13:00 100 11/18/20 13:00 119 36 146/22 (63) 92 11/18/20 12:54 107/17 11/18/20 12:30 94 32 107/17 (47) 94 11/18/20 12:01 99.9 96 33 108/16 (46) 90 11/18/20 12:00 96 33 108/16 (46) 90 11/18/20 12:00 Mechanical Ventilator 11/18/20 12:00 100 11/18/20 11:36 86 11/18/20 11:30 92 30 122/20 (54) 90 11/18/20 11:14 101 33 100 11/18/20 11:00 83 22 109/22 (51) 98 11/18/20 11:00 109/22 11/18/20 10:30 81 21 104/29 (54) 97 11/18/20 10:30 104/29 11/18/20 10:15 89/22 11/18/20 10:00 89/71 11/18/20 10:00 107 27 126/44 (71) 96 11/18/20 09:48 93 127/43 11/18/20 09:30 98 29 95/52 (66) 94 11/18/20 09:00 97 29 121/47 (71) 94 11/18/20 08:30 107 30 109/49 (69) 93 11/18/20 08:00 94 11/18/20 08:00 99.1 89 32 104/52 (69) 94 11/18/20 08:00 Mechanical Ventilator 11/18/20 08:00 100 11/18/20 07:30 93 30 112/50 (70) 93 11/18/20 07:24 104 33 100 11/18/20 07:15 93 30 94 11/18/20 07:00 112/50 11/18/20 07:00 95 31 94/35 (54) 94 11/18/20 06:45 89 25 114/39 (64) 94 11/18/20 06:30 91 32 107/54 (71) 94 11/18/20 06:15 93 27 114/38 (63) 94 11/18/20 06:00 93 25 116/46 (69) 93 11/18/20 06:00 114/38 11/18/20 05:45 95 27 114/42 (66) 92 11/18/20 05:30 112 29 111/41 (64) 92 11/18/20 05:15 101 12 97/39 (58) 78 11/18/20 05:00 97/39 11/18/20 05:00 100 21 118/51 (73) 92 11/18/20 04:45 99 27 111/44 (66) 92 11/18/20 04:30 97 26 109/54 (72) 93 11/18/20 04:15 97 27 115/37 (63) 94 11/18/20 04:00 Mechanical Ventilator 11/18/20 04:00 100 11/18/20 04:00 100 11/18/20 04:00 115/37 11/18/20 04:00 93 25 125/41 (69) 93 11/18/20 03:30 94 33 100 11/18/20 03:00 95/38 11/18/20 03:00 97 29 95/38 (57) 93 11/18/20 02:45 100 25 106/36 (59) 92 11/18/20 02:30 105 29 94/36 (55) 93 11/18/20 02:15 94 32 92/43 (59) 92 11/18/20 02:00 92/43 11/18/20 02:00 98 21 112/48 (69) 93 11/18/20 01:45 100 29 99/37 (57) 93 11/18/20 01:30 96 33 91/34 (53) 93 11/18/20 01:15 96 32 106/35 (58) 93 11/18/20 01:00 96 29 116/38 (64) 91 11/18/20 01:00 106/35 11/18/20 00:45 92 29 103/37 (59) 92 11/18/20 00:35 88/45 11/18/20 00:30 101 34 88/45 (59) 91 11/18/20 00:15 98 33 101/39 (59) 90 11/18/20 00:00 100 11/18/20 00:00 101/39 11/18/20 00:00 99.8 94 33 90/39 (56) 89 11/18/20 00:00 Mechanical Ventilator 11/18/20 00:00 100 11/17/20 23:45 89 32 96/36 (56) 93 11/17/20 23:30 95 26 101/32 (55) 94 11/17/20 23:15 92 23 106/36 (59) 95 11/17/20 23:00 91 27 106/36 (59) 96 11/17/20 23:00 106/36 11/17/20 22:45 89 25 108/42 (64) 96 11/17/20 22:44 94 32 100 11/17/20 22:30 94 27 93/40 (57) 97 11/17/20 22:15 93 25 89/35 (53) 96 11/17/20 22:00 96 30 94/42 (59) 95 11/17/20 22:00 94/42 11/17/20 21:45 99 28 91/43 (59) 95 11/17/20 21:30 102 29 93/42 (59) 93 11/17/20 21:18 99 99/46 11/17/20 21:15 103 33 99/46 (63) 92 11/17/20 21:00 109 34 74/48 (57) 93 11/17/20 21:00 74/48 11/17/20 20:45 117 19 124/41 (68) 97 11/17/20 20:30 116 10 110/50 (70) 96 11/17/20 20:15 114 18 111/51 (71) 96 11/17/20 20:00 Mechanical Ventilator 11/17/20 20:00 99.0 114 13 117/46 (69) 95 11/17/20 20:00 120 11/17/20 20:00 117/46 11/17/20 20:00 100 11/17/20 19:45 109 18 113/44 (67) 98 11/17/20 19:37 106 24 114/65 (81) 98 11/17/20 19:30 108 36 100 11/17/20 19:30 102 17 83/39 (54) 97 11/17/20 19:21 104 18 103/48 (66) 98 11/17/20 19:15 106 18 90/38 (55) 98 11/17/20 19:00 98/78 11/17/20 19:00 109 20 98/78 (85) 100 11/17/20 18:45 109 20 102/46 (64) 100 11/17/20 18:30 111 18 93/44 (60) 99 11/17/20 18:15 115 14 99/50 (66) 95 11/17/20 18:11 100 11/17/20 18:00 84/48 11/17/20 18:00 111 32 84/48 (60) 88 I&O Intake and Output 11/17/20 11/18/20 19:00 07:00 Intake Total 3290.760 ml 2272.628 ml Output Total 965 ml 650 ml Balance 2325.760 ml 1622.628 ml Free Water 1500 ml 1200 ml IV Total 850.760 ml 292.628 ml Tube Feeding 780 ml 780 ml Other 160 ml Output Urine Total 965 ml 650 ml # Bowel Movements 1 Dressing: saturated Cardiovascular: RSR Respiratory: decreased breath sounds Abdomen: non-tender, present bowel sounds Extremities: no tenderness, no cyanosis Laboratory Tests Test 11/18/20 00:34 11/18/20 08:30 11/18/20 12:10 11/18/20 12:30 POC Whole Blood Glucose 316 MG/DL (74-106) H 241 MG/DL (74-106) H Arterial Blood pH 7.361 (7.350-7.450) Arterial Blood Partial Pressure CO2 48.1 mmHg (35.0-45.0) H Arterial Blood Partial Pressure O2 51.6 mmHg (75.0-100.0) L Arterial Blood HCO3 26.6 mmol/L (22.0-26.0) H Arterial Blood Oxygen Saturation 85.0 % (95-100) *L Arterial Blood Base Excess 0.8 (-2-2) Jonathan Test Positive White Blood Count 16.7 K/UL (4.8-10.8) H Red Blood Count 3.51 M/UL (4.70-6.10) L Hemoglobin 11.0 G/DL (14.2-18.0) L Hematocrit 31.6 % (42.0-52.0) L Mean Corpuscular Volume 90 FL (80-99) Mean Corpuscular Hemoglobin 31.3 PG (27.0-31.0) H Mean Corpuscular Hemoglobin Concent 34.8 G/DL (32.0-36.0) Red Cell Distribution Width 15.0 % (11.6-14.8) H Platelet Count 175 K/UL (150-450) Mean Platelet Volume 9.0 FL (6.5-10.1) Neutrophils (%) (Auto) % (45.0-75.0) Lymphocytes (%) (Auto) % (20.0-45.0) Monocytes (%) (Auto) % (1.0-10.0) Eosinophils (%) (Auto) % (0.0-3.0) Basophils (%) (Auto) % (0.0-2.0) Differential Total Cells Counted 100 Neutrophils % (Manual) 83 % (45-75) H Lymphocytes % (Manual) 16 % (20-45) L Monocytes % (Manual) 0 % (1-10) L Eosinophils % (Manual) 1 % (0-3) Basophils % (Manual) 0 % (0-2) Band Neutrophils 0 % (0-8) Platelet Estimate Adequate Platelet Morphology Normal Anisocytosis 1+ Sodium Level 150 MMOL/L (136-145) H Potassium Level 6.0 MMOL/L (3.5-5.1) *H Chloride Level 118 MMOL/L (98-107) H Carbon Dioxide Level 25 MMOL/L (21-32) Anion Gap 7 mmol/L (5-15) Blood Urea Nitrogen 153 mg/dL (7-18) H Creatinine 2.2 MG/DL (0.55-1.30) H Estimat Glomerular Filtration Rate 28.7 mL/min (>60) Glucose Level 268 MG/DL (74-106) H Calcium Level 8.2 MG/DL (8.5-10.1) L Phosphorus Level 3.9 MG/DL (2.5-4.9) Magnesium Level 2.5 MG/DL (1.8-2.4) H Random Vancomycin Level 20.2 ug/mL Plan Problems: (1) ARDS (adult respiratory distress syndrome) Assessment & Plan: 84-year-old male who pressor insufficiency ARDS Covid on vent ET tube in place chest x-ray reviewed central line in place on sedation. Continue daily weaning trials. NG tube okay for diet tube feeds continue. Microbiology reviewed labs reviewed. Trend labs. IV fluids. Will follow with recommendations thank you for let me participate patient's care cxr stable on abx covid + cont abx cont f wean as tolerated DAILY ESTIMATED NEEDS: Needs based on Critcal care 82.4kg abw 22-28 kcals/kg 7273-6330 total kcals 1.2-2 g protein/kg 99-165 g total protein 20-25/ or per MD mL/kg 0434-7482 total fluid mLs NUTRITION DIAGNOSIS: Swallowing difficulty r/t respiratory status as evidenced by 84 y/o M adm w/ covid++, now orally intubated, NPO. ENTERAL NUTRITION RECOMMENDATIONS: VITAL 1.2 GOAL OF 65ml/hr x24 hrs to provide 1560ml, 1872 kcal, 117g pro, 1265ml free H2O - When hemodynamically stable, rec to start non oral feeds to meet est kcal and pro needs. - Start Vital 1.2 @35ml/hr for 6 hrs, advance as tolerated 10ml/hr q4-6 hrs to goal. - Flush per MD. HOB over 30 degrees ADDITIONAL RECOMMENDATIONS: 1) Maintain calibrated bed scale wts 2) Followed by end, monitor for hypoglycemia while NPO 3) Feed when hemodynamically stable, TF recs as above for critical care, carb control, high pro content to meet est needs 4) Re-evaluate TF w/ change in propofol rate-> current rate w/ TF's do NOT exceed est needs. (2) Hypoxemia (3) Renal failure (4) Elevated troponin (5) COVID-19 Assessment & Plan: ++ on abx tx per Tommie Teague Nov 18, 2020 17:46
--- NOTE | 2020-11-18 18:39 | NUR ---
[employer]URANCE [employer]INCALS AND REVIEW FAXED TO (11/15-11/18) [facility] T: [phone] F: [phone]
--- NOTE | 2020-11-18 19:12 | NUR ---
NURSE NOTES: ventilator setting changed back to AC 16, TV: 600, FIo2 of 100% and peep of 10. saturations are ranging from 90-91 with the above ventilator settings.
[2020-11-18] MEDS: Norepinephrine 4mg/NS Premix 250 ML IV SCH ×2 (19:30→23:07)
--- NOTE | 2020-11-18 19:30 | NUR ---
NURSE NOTES: Received pt hypotensive SBp 70-80s, ST on the monitor , desat on the 80s , Called DR Hong with orders to add Levophed drip and Albumin 50 gms iv. Will continue to monitor.
--- NOTE | 2020-11-18 20:01 | NUR ---
NURSE HAND-OFF REPORT: Latest Vital Signs: Temperature 100.0 , Pulse 112 , B/P 120 /28 , Respiratory Rate 26 , O2 SAT 81 , Mechanical Ventilator, O2 Flow Rate . Vital Sign Comment: EKG Rhythm: Sinus Tachycardia Rhythm change?: N Notified?: Marty Jerez MD Response: Order Received& Read Back Latest Blackwell Fall Score: 50 Fall Risk: High Risk Safety Measures: Call light Within Reach, Bed Alarm Zone 1, Side Rails Side Rails x3, Bed position Low and Locked. Fall Precautions: Yellow Socks Yellow Gown Door Sign Patient Fall Education Report given to LYNDA Crawford.
[2020-11-18 20:25] LABS: CALCIUM 7.9 MG/DL (8.5-10.1); CREATININE 2.7 MG/DL (0.55-1.30); POTASSIUM 5.8 MMOL/L (3.5-5.1)
[2020-11-18] MEDS: Miralax 17gm pkt GT SCH (20:52)
[2020-11-18] MEDS: Enoxaparin 40mg Inj SUBQ SCH (20:54)
--- NOTE | 2020-11-18 20:56 | Diagnostic Imaging Report ---
EXAM: XR Chest, 1 View CLINICAL HISTORY: TUBE PLCMT TECHNIQUE: Frontal view of the chest. COMPARISON: 11/17/2020 FINDINGS: Lungs: Diffuse right and mid/lower left lung consolidations worse since prior. Pleural space: Trace right apical pneumothorax without tension component. Heart: Unremarkable. No cardiomegaly. Mediastinum: Pneumomediastinum again seen. Bones/joints: No acute abnormality Tubes, lines and devices: Extremely high ETT 4 cm above brittany. Enteric tube tip in the stomach, recommend advancement 5 cm to ensure gastric decompression. Right upper extremity PICC tip in the superior cavoatrial junction region. Pression. IMPRESSION: 1. Extremely high ETT 4 cm above brittany. 2. Recommend advancing ETT at least 7 cm. 3. Enteric tube tip in the stomach, recommend advancement 5 cm to ensure gastric decompression. 4. Pneumomediastinum again seen. 5. Trace right apical pneumothorax without tension component. 6. Worsened diffuse right lung and left midlung and base consolidations. <MYCVCSECTION> Communications: 11/18/20 21:01 Call Nurse LYNDA Sidhu on 11/18 21:00 (-08:00)
--- NOTE | 2020-11-18 21:04 | NUR ---
NURSE NOTES: Stat Rad MD Francis, Spoke to RN Aba Adan to pull back 7cm.(was done by RT) Repeat cxr was done.
--- NOTE | 2020-11-18 21:39 | Diagnostic Imaging Report ---
EXAM: XR Chest, 1 View CLINICAL HISTORY: TUBE PLCMT TECHNIQUE: Frontal view of the chest. COMPARISON: Radiographs one hour earlier. FINDINGS: Lungs: Unchanged extensive bilateral lung consolidations. Pleural space: Probable small left pleural effusion. Heart: Unremarkable. No cardiomegaly. Mediastinum: Unchanged pneumomediastinum and probable trace right apical tiny pneumothorax. Bones/joints: No acute abnormality Tubes, lines and devices: ETT advanced, now 5.1 cm above brittany. Enteric tube with tip and proximal sideport below the gastroesophageal junction. Right upper extremity PICC tip in the mid SVC. IMPRESSION: 1. ETT advanced, now 5.1 cm above brittany. 2. Enteric tube with tip and proximal sideport below the gastroesophageal junction. 3. Right upper extremity PICC tip in the mid SVC. 4. Unchanged pneumomediastinum and probable trace right apical tiny pneumothorax. 5. Unchanged extensive bilateral lung consolidations. 6. Probable small left pleural effusion.
[2020-11-19] VITALS (57 sets, daily range): BP systolic 98–158; BP diastolic 13–39
[2020-11-19] MEDS: Metoclopramide 10mg/2ml Inj IVP SCH ×5 (00:29→23:55)
[2020-11-19] MEDS: NovoLOG Insulin Flexpen SUBQ SCH ×5 (00:31→23:55)
--- NOTE | 2020-11-19 04:00 | NUR ---
NURSE NOTES: complete bed bath oral care done
[2020-11-19] MEDS: Norepinephrine 4mg/NS Premix 250 ML IV SCH (04:56)
--- NOTE | 2020-11-19 05:30 | NUR ---
NURSE NOTES: SBP > 100s. o2 sat 92%. Will continue to monitor.
[2020-11-19 05:55] LABS: HEMATOCRIT 31.1 % (42.0-52.0); HEMOGLOBIN 9.7 G/DL (14.2-18.0); MEAN CORPUSCULAR VOLUME 99 FL (80-99); PLATELET COUNT 114 K/UL (150-450); RED BLOOD COUNT 3.16 M/UL (4.70-6.10); RED CELL DISTRIBUTION WIDTH 15.9 % (11.6-14.8); WHITE BLOOD COUNT 14.1 K/UL (4.8-10.8)
--- NOTE | 2020-11-19 06:00 | NUR ---
NURSE NOTES: [id number]
--- NOTE | 2020-11-19 06:00 | NUR ---
HAND-OFF: Report given to [].
[2020-11-19] MEDS: Piperacillin/Tazobactam 3.375 GM in NS 110 ML IVPB SCH ×3 (06:06→20:50)
[2020-11-19 06:10] LABS: ALBUMIN 1.5 G/DL (3.4-5.0); ALBUMIN/GLOBULIN RATIO 0.4 (1.0-2.7); CALCIUM 7.6 MG/DL (8.5-10.1); CREATININE 2.3 MG/DL (0.55-1.30)
[2020-11-19] MEDS ORDERED: Vancomycin 1.25gm Premix q24h IVPB SCH ×2 (07:00→12:00)
--- NOTE | 2020-11-19 08:23 | Infectious Diseases Prog Note ---
Assessment/Plan Assessment/Plan A: 1. COVID-19 pneumonia. 2. Positive blood culture likely contamination 3. Respiratory failure with hypoxia 4. Diabetes. 5. Hypertension. 6. Renal failure. 7. Acidosis PLAN: 1. Finished remdesivir course 2. Continue Solu-Medrol 3. Continue Zosyn & Vancomycin. 4. Sputum culture Subjective ROS Limited/Unobtainable: Yes Cardiovascular: Reports: other - on Levophed & Dopamine Allergies: Coded Allergies: No Known Allergies (Unverified , 11/06/20) Objective Last 24 Hour Vital Signs Date Time Temp Pulse Resp B/P (MAP) Pulse Ox O2 Delivery O2 Flow Rate FiO2 11/19/20 07:15 87 30 130/20 (56) 95 11/19/20 07:00 89 30 132/19 (56) 96 11/19/20 07:00 130/20 11/19/20 06:45 88 22 141/28 (65) 97 11/19/20 06:30 87 25 134/20 (58) 95 11/19/20 06:15 89 28 134/22 (59) 94 11/19/20 06:00 88 26 155/26 (69) 94 11/19/20 06:00 155/26 11/19/20 05:55 89 27 100 11/19/20 05:45 89 24 144/18 (60) 77 11/19/20 05:30 101 25 158/27 (70) 87 11/19/20 05:00 90/18 11/19/20 05:00 96 27 114/13 (46) 86 11/19/20 04:56 95/16 11/19/20 04:30 94 24 98/13 (41) 83 11/19/20 04:15 93 25 148/20 (62) 87 11/19/20 04:00 100 11/19/20 04:00 149/20 11/19/20 04:00 96 11/19/20 04:00 98.4 85 26 136/30 (65) 89 11/19/20 04:00 Mechanical Ventilator 11/19/20 03:15 83 26 140/32 (68) 88 11/19/20 03:00 140/30 11/19/20 03:00 84 23 146/24 (64) 89 11/19/20 02:48 84 26 100 11/19/20 02:45 81 25 145/22 (63) 89 11/19/20 02:30 77 26 139/29 (65) 89 11/19/20 02:15 77 27 134/20 (58) 87 11/19/20 02:00 132/19 11/19/20 02:00 77 27 131/29 (63) 89 11/19/20 01:30 78 27 132/19 (56) 90 11/19/20 01:00 117/32 11/19/20 01:00 87 27 118/30 (59) 90 11/19/20 00:45 107 26 105/18 (47) 87 11/19/20 00:30 110 23 145/25 (65) 88 11/19/20 00:15 112 28 148/26 (66) 86 11/19/20 00:10 111 25 145/29 (67) 85 11/19/20 00:00 98.0 108 26 154/27 (69) 86 11/19/20 00:00 100 11/19/20 00:00 Mechanical Ventilator 11/19/20 00:00 145/45 11/19/20 00:00 81 11/18/20 23:45 117 25 142/43 (76) 87 11/18/20 23:30 111 26 141/38 (72) 85 11/18/20 23:22 111 25 100 11/18/20 23:07 92/18 11/18/20 23:00 142/43 11/18/20 23:00 106 23 92/18 (42) 89 11/18/20 22:45 110 24 134/26 (62) 88 11/18/20 22:30 112 23 136/22 (60) 87 11/18/20 22:15 111 26 128/22 (57) 84 11/18/20 22:00 128/22 11/18/20 22:00 116 27 118/19 (52) 82 11/18/20 21:45 119 20 129/15 (53) 78 11/18/20 21:30 118 23 140/18 (58) 79 11/18/20 21:15 124 23 175/32 (79) 86 11/18/20 21:00 127 22 154/28 (70) 85 11/18/20 21:00 125/36 11/18/20 20:53 120 185/25 11/18/20 20:45 117 27 185/32 (82) 83 11/18/20 20:30 121 24 180/34 (82) 92 11/18/20 20:15 105 16 125/36 (65) 95 11/18/20 20:00 Mechanical Ventilator 11/18/20 20:00 107 11/18/20 20:00 80/20 11/18/20 20:00 102 16 134/26 (62) 94 11/18/20 20:00 100 11/18/20 19:47 120/28 11/18/20 19:45 106 14 120/28 (58) 92 11/18/20 19:30 106 23 100/15 (43) 89 11/18/20 19:30 87/50 11/18/20 19:15 111 24 83/21 (41) 85 11/18/20 19:05 112 26 100 11/18/20 19:00 103 33 83/32 (49) 81 11/18/20 18:30 117 34 95/11 (39) 97 11/18/20 18:00 118 36 100/38 (58) 95 11/18/20 17:00 112 37 106/12 (43) 97 11/18/20 16:30 116 36 102/17 (45) 93 11/18/20 16:00 100.0 113 35 114/32 (59) 93 11/18/20 16:00 100.0 11/18/20 16:00 118 11/18/20 16:00 Mechanical Ventilator 11/18/20 15:30 117 36 107/14 (45) 94 11/18/20 15:21 116 34 100 11/18/20 15:00 117 35 121/31 (61) 93 11/18/20 14:30 118 36 113/29 (57) 94 11/18/20 14:00 118 35 142/33 (69) 92 11/18/20 13:30 108 37 88/19 (42) 92 11/18/20 13:00 100 11/18/20 13:00 119 36 146/22 (63) 92 11/18/20 12:54 107/17 11/18/20 12:30 94 32 107/17 (47) 94 11/18/20 12:01 99.9 96 33 108/16 (46) 90 11/18/20 12:00 96 33 108/16 (46) 90 11/18/20 12:00 Mechanical Ventilator 11/18/20 12:00 100 11/18/20 11:36 86 11/18/20 11:30 92 30 122/20 (54) 90 11/18/20 11:14 101 33 100 11/18/20 11:00 83 22 109/22 (51) 98 11/18/20 11:00 109/22 11/18/20 10:30 81 21 104/29 (54) 97 11/18/20 10:30 104/29 11/18/20 10:15 89/22 11/18/20 10:00 89/71 11/18/20 10:00 107 27 126/44 (71) 96 11/18/20 09:48 93 127/43 11/18/20 09:30 98 29 95/52 (66) 94 11/18/20 09:00 97 29 121/47 (71) 94 11/18/20 08:30 107 30 109/49 (69) 93 Height (Feet): 6 Height (Inches): 1.00 Weight (Pounds): 190 HEENT: other - orally intubated Respiratory/Chest: other - on ventilator Cardiovascular: normal rate, other - R arm PICC line Abdomen: soft, non tender Extremities: no edema Neurologic/Psychiatric: unresponsiveness Microbiology Date/Time Source Procedure Growth Status 11/17/20 12:30 Blood Blood Culture - Preliminary NO GROWTH AFTER 24 HOURS Resulted 11/17/20 12:25 Indwelling Cath Urine Culture - Final NO GROWTH AFTER 48 HOURS Complete 11/17/20 12:15 Blood Blood Culture - Preliminary NO GROWTH AFTER 24 HOURS Resulted Laboratory Tests Test 11/18/20 08:30 11/18/20 12:10 11/18/20 12:30 11/18/20 17:50 Arterial Blood pH 7.361 (7.350-7.450) Arterial Blood Partial Pressure CO2 48.1 mmHg (35.0-45.0) H Arterial Blood Partial Pressure O2 51.6 mmHg (75.0-100.0) L Arterial Blood HCO3 26.6 mmol/L (22.0-26.0) H Arterial Blood Oxygen Saturation 85.0 % (95-100) *L Arterial Blood Base Excess 0.8 (-2-2) Jonathan Test Positive White Blood Count 16.7 K/UL (4.8-10.8) H Red Blood Count 3.51 M/UL (4.70-6.10) L Hemoglobin 11.0 G/DL (14.2-18.0) L Hematocrit 31.6 % (42.0-52.0) L Mean Corpuscular Volume 90 FL (80-99) Mean Corpuscular Hemoglobin 31.3 PG (27.0-31.0) H Mean Corpuscular Hemoglobin Concent 34.8 G/DL (32.0-36.0) Red Cell Distribution Width 15.0 % (11.6-14.8) H Platelet Count 175 K/UL (150-450) Mean Platelet Volume 9.0 FL (6.5-10.1) Neutrophils (%) (Auto) % (45.0-75.0) Lymphocytes (%) (Auto) % (20.0-45.0) Monocytes (%) (Auto) % (1.0-10.0) Eosinophils (%) (Auto) % (0.0-3.0) Basophils (%) (Auto) % (0.0-2.0) Differential Total Cells Counted 100 Neutrophils % (Manual) 83 % (45-75) H Lymphocytes % (Manual) 16 % (20-45) L Monocytes % (Manual) 0 % (1-10) L Eosinophils % (Manual) 1 % (0-3) Basophils % (Manual) 0 % (0-2) Band Neutrophils 0 % (0-8) Platelet Estimate Adequate Platelet Morphology Normal Anisocytosis 1+ Sodium Level 150 MMOL/L (136-145) H Potassium Level 6.0 MMOL/L (3.5-5.1) *H Chloride Level 118 MMOL/L (98-107) H Carbon Dioxide Level 25 MMOL/L (21-32) Anion Gap 7 mmol/L (5-15) Blood Urea Nitrogen 153 mg/dL (7-18) H Creatinine 2.2 MG/DL (0.55-1.30) H Estimat Glomerular Filtration Rate 28.7 mL/min (>60) Glucose Level 268 MG/DL (74-106) H Calcium Level 8.2 MG/DL (8.5-10.1) L Phosphorus Level 3.9 MG/DL (2.5-4.9) Magnesium Level 2.5 MG/DL (1.8-2.4) H Random Vancomycin Level 20.2 ug/mL POC Whole Blood Glucose 241 MG/DL (74-106) H 303 MG/DL (74-106) H Test 11/18/20 19:10 11/18/20 21:15 11/19/20 04:50 11/19/20 07:56 Sodium Level 149 MMOL/L (136-145) H 151 MMOL/L (136-145) H Potassium Level 5.8 MMOL/L (3.5-5.1) H 5.0 MMOL/L (3.5-5.1) Chloride Level 116 MMOL/L (98-107) H 116 MMOL/L (98-107) H Carbon Dioxide Level 29 MMOL/L (21-32) 27 MMOL/L (21-32) Anion Gap 4 mmol/L (5-15) L 8 mmol/L (5-15) Blood Urea Nitrogen 162 mg/dL (7-18) H 148 mg/dL (7-18) H Creatinine 2.7 MG/DL (0.55-1.30) H 2.3 MG/DL (0.55-1.30) H Estimat Glomerular Filtration Rate 22.6 mL/min (>60) 27.2 mL/min (>60) Glucose Level 384 MG/DL (74-106) #H 375 MG/DL (74-106) H Calcium Level 7.9 MG/DL (8.5-10.1) L 7.6 MG/DL (8.5-10.1) L POC Whole Blood Glucose Pending White Blood Count 14.1 K/UL (4.8-10.8) H Red Blood Count 3.16 M/UL (4.70-6.10) L Hemoglobin 9.7 G/DL (14.2-18.0) L Hematocrit 31.1 % (42.0-52.0) L Mean Corpuscular Volume 99 FL (80-99) # Mean Corpuscular Hemoglobin 30.9 PG (27.0-31.0) Mean Corpuscular Hemoglobin Concent 31.3 G/DL (32.0-36.0) L Red Cell Distribution Width 15.9 % (11.6-14.8) H Platelet Count 114 K/UL (150-450) L Mean Platelet Volume 8.5 FL (6.5-10.1) Neutrophils (%) (Auto) % (45.0-75.0) Lymphocytes (%) (Auto) % (20.0-45.0) Monocytes (%) (Auto) % (1.0-10.0) Eosinophils (%) (Auto) % (0.0-3.0) Basophils (%) (Auto) % (0.0-2.0) Neutrophils % (Manual) Pending Lymphocytes % (Manual) Pending Platelet Estimate Pending Platelet Morphology Pending Total Bilirubin 1.0 MG/DL (0.2-1.0) Aspartate Amino Transf (AST/SGOT) 50 U/L (15-37) H Alanine Aminotransferase (ALT/SGPT) 63 U/L (12-78) Alkaline Phosphatase 192 U/L (46-116) H Total Protein 5.7 G/DL (6.4-8.2) L Albumin 1.5 G/DL (3.4-5.0) L Globulin 4.2 g/dL Albumin/Globulin Ratio 0.4 (1.0-2.7) L Random Vancomycin Level 14.9 ug/mL Arterial Blood pH 7.244 (7.350-7.450) Arterial Blood Partial Pressure CO2 59.9 mmHg (35.0-45.0) *H Arterial Blood Partial Pressure O2 56.5 mmHg (75.0-100.0) L Arterial Blood HCO3 25.3 mmol/L (22.0-26.0) Arterial Blood Oxygen Saturation 84.7 % (95-100) *L Arterial Blood Base Excess -2.6 (-2-2) L Jonathan Test Positive Current Medications Medications (Trade) Dose Ordered Sig/Violet Route PRN Reason Start Time Stop Time Status Last Admin Dose Admin Acetaminophen (Tylenol) 650 mg Q4H PRN GT Temp >100.5 11/12/20 11:00 12/12/20 10:44 11/18/20 14:55 Chlorhexidine Gluconate (Patt-Hex 2%) 1 applic DAILY@2000 TOPIC 11/17/20 20:00 02/15/21 19:59 11/17/20 21:17 Dextrose 1,000 ml @ 0 mls/hr Q0M IV 11/17/20 10:30 12/17/20 10:29 Dextrose (Dextrose 50%) 25 ml Q30M PRN IV Hypoglycemia 11/06/20 20:00 02/04/21 19:59 Dextrose (Dextrose 50%) 50 ml Q30M PRN IV Hypoglycemia 11/06/20 20:00 02/04/21 19:59 Docusate Sodium (Colace) 100 mg EVERY 12 HOURS GT 11/17/20 21:00 12/14/20 17:59 11/18/20 20:51 Dopamine HCl/ Dextrose 250 ml @ 0 mls/hr Q24H IV 11/16/20 14:00 11/19/20 13:56 11/18/20 19:47 Enoxaparin Sodium (Lovenox) 40 mg Q24H SUBQ 11/07/20 21:00 02/05/21 20:59 11/18/20 20:54 Flumazenil (Romazicon) 0.2 mg NEEDED PRN IV Sedation reversal 11/06/20 20:00 Heparin Sodium/ Sodium Chloride (Heparin 1000 units/500ml Premix) 1,000 unit ONCE PRN IV PICC LINE 11/18/20 10:00 11/19/20 09:59 Insulin Aspart (NovoLOG) EVERY 6 HOURS SUBQ 11/08/20 12:00 02/05/21 16:29 11/19/20 06:08 Insulin Detemir (Levemir) 14 units EVERY 12 HOURS SUBQ 11/13/20 09:00 02/05/21 20:59 11/18/20 21:00 Lidocaine HCl (Xylocaine 1% 30ml) 30 ml ONCE PRN INJ PICC LINE 11/18/20 10:00 11/20/20 09:59 Methylprednisolone Sodium Succinate (Solu-MEDROL) 40 mg EVERY 12 HOURS IVP 11/18/20 12:30 02/16/21 12:29 11/18/20 21:08 Metoclopramide HCl (Reglan) 5 mg Q6HR IVP 11/14/20 12:26 12/14/20 12:25 11/19/20 06:06 Metoprolol Tartrate (Lopressor) 50 mg Q12HR ORAL 11/14/20 23:15 02/12/21 23:14 11/18/20 20:53 Naloxone HCl (Narcan) 0.4 mg NEEDED PRN IVP RR less than 6/min 11/06/20 20:00 02/04/21 19:59 Norepinephrine Bitartrate 250 ml @ 0 mls/hr Q24H IV 11/18/20 19:30 11/21/20 19:28 11/19/20 04:56 Ondansetron HCl (Zofran) 4 mg Q6H PRN IVP Nausea & Vomiting 11/06/20 20:00 12/06/20 19:59 Pantoprazole (Protonix) 40 mg DAILY IVP 11/08/20 09:00 12/08/20 08:59 11/18/20 09:48 Piperacillin Sod/ Tazobactam Sod 3.375 gm/Sodium Chloride 110 ml @ 27.5 mls/hr Q8HR IVPB 11/17/20 22:00 11/24/20 21:59 11/19/20 06:06 Polyethylene Glycol (Miralax) 17 gm BEDTIME GT 11/14/20 21:00 12/14/20 20:59 11/18/20 20:52 Vancomycin HCl (Vanco pharmacy to dose) 1 ea DAILY PRN MISC Per rx protocol 11/17/20 11:30 12/17/20 11:29 Karson Cabrera MD Nov 19, 2020 08:23
--- NOTE | 2020-11-19 08:44 | NUR ---
CASE MANAGEMENT:REVIEW 11/19/20 SI: COVID PNA. SEPSIS. RESP FAILURE ~ INTUBATED 98.3 88 29 123/25 93% ON VENT SUPPORT W/100% FIO2 WBC+14.1 PLT-114 NA+151 BUN+148 CR+2.3 IS: IV VANCOMYCIN X1 IV SOLUMEDROL Q12 IV ZOSYN Q8HRS DOPAMINE GTT LOPRESSOR NG Q12 LOVENOX SQ Q24 : ICU STATUS DCP: FROM HOME
--- NOTE | 2020-11-19 08:59 | Nephrology Progress Note ---
Assessment/Plan Plan #SAMEER on CKD- likely pre-renal azotemia in the setting of sepsis- now progressing to ATN - concerns for #hypnatremia # acute hypoxemia Resp failure 2/2 covid PNA requiring BIPAP # Covid PNA # Lactic acid elevation # Malnutrition #HTN, current normotensive # elevated D dimer # Trop elevated # DM2 uncontrolled - patient encephalopathic- concerns or uremia given uptrending BUN - plan for maharkur placement and trial of HD if BP tolerates - lasix 80 IV - albumin 25mg x1 - continue pressors to maintain MAP > 65 - continue free water flushes [id number] - DC bicarb drip - intubated - monitor volume status - monitor ABG - monitor BMP, mag and phos daily - strict I&Os - daily weights - echo - defer renal US - antibiotic per ID time spent 65min Subjective ROS Limited/Unobtainable: Yes Subjective intubated Cr fluctuating sodium remains elevated BUN uptrending volume overloaded on pressors - on levo and dopa patient encephalopathic plan for maharkur placement and trial of HD tomorrow Objective Objective Last 24 Hour Vital Signs Date Time Temp Pulse Resp B/P (MAP) Pulse Ox O2 Delivery O2 Flow Rate FiO2 11/19/20 08:00 100 11/19/20 08:00 98.3 88 29 123/25 (57) 93 11/19/20 08:00 88 11/19/20 07:30 87 29 127/24 (58) 93 11/19/20 07:15 87 30 130/20 (56) 95 11/19/20 07:00 89 30 132/19 (56) 96 11/19/20 07:00 130/20 11/19/20 06:45 88 22 141/28 (65) 97 11/19/20 06:30 87 25 134/20 (58) 95 11/19/20 06:15 89 28 134/22 (59) 94 11/19/20 06:00 88 26 155/26 (69) 94 11/19/20 06:00 155/26 11/19/20 05:55 89 27 100 11/19/20 05:45 89 24 144/18 (60) 77 11/19/20 05:30 101 25 158/27 (70) 87 11/19/20 05:00 90/18 12/29/20 05:00 96 27 114/13 (46) 86 11/19/20 04:56 95/16 11/19/20 04:30 94 24 98/13 (41) 83 11/19/20 04:15 93 25 148/20 (62) 87 11/19/20 04:00 100 11/19/20 04:00 149/20 11/19/20 04:00 96 11/19/20 04:00 98.4 85 26 136/30 (65) 89 11/19/20 04:00 Mechanical Ventilator 11/19/20 03:15 83 26 140/32 (68) 88 11/19/20 03:00 140/30 11/19/20 03:00 84 23 146/24 (64) 89 11/19/20 02:48 84 26 100 11/19/20 02:45 81 25 145/22 (63) 89 11/19/20 02:30 77 26 139/29 (65) 89 11/19/20 02:15 77 27 134/20 (58) 87 11/19/20 02:00 132/19 11/19/20 02:00 77 27 131/29 (63) 89 11/19/20 01:30 78 27 132/19 (56) 90 11/19/20 01:00 117/32 11/19/20 01:00 87 27 118/30 (59) 90 11/19/20 00:45 107 26 105/18 (47) 87 11/19/20 00:30 110 23 145/25 (65) 88 11/19/20 00:15 112 28 148/26 (66) 86 11/19/20 00:10 111 25 145/29 (67) 85 11/19/20 00:00 98.0 108 26 154/27 (69) 86 11/19/20 00:00 100 11/19/20 00:00 Mechanical Ventilator 11/19/20 00:00 145/45 11/19/20 00:00 81 11/18/20 23:45 117 25 142/43 (76) 87 11/18/20 23:30 111 26 141/38 (72) 85 11/18/20 23:22 111 25 100 11/18/20 23:07 92/18 11/18/20 23:00 142/43 11/18/20 23:00 106 23 92/18 (42) 89 11/18/20 22:45 110 24 134/26 (62) 88 11/18/20 22:30 112 23 136/22 (60) 87 11/18/20 22:15 111 26 128/22 (57) 84 11/18/20 22:00 128/22 11/18/20 22:00 116 27 118/19 (52) 82 11/18/20 21:45 119 20 129/15 (53) 78 11/18/20 21:30 118 23 140/18 (58) 79 11/18/20 21:15 124 23 175/32 (79) 86 11/18/20 21:00 127 22 154/28 (70) 85 11/18/20 21:00 125/36 11/18/20 20:53 120 185/25 11/18/20 20:45 117 27 185/32 (82) 83 11/18/20 20:30 121 24 180/34 (82) 92 11/18/20 20:15 105 16 125/36 (65) 95 11/18/20 20:00 Mechanical Ventilator 11/18/20 20:00 107 11/18/20 20:00 80/20 11/18/20 20:00 102 16 134/26 (62) 94 11/18/20 20:00 100 11/18/20 19:47 120/28 11/18/20 19:45 106 14 120/28 (58) 92 11/18/20 19:30 106 23 100/15 (43) 89 11/18/20 19:30 87/50 11/18/20 19:15 111 24 83/21 (41) 85 11/18/20 19:05 112 26 100 11/18/20 19:00 103 33 83/32 (49) 81 11/18/20 18:30 117 34 95/11 (39) 97 11/18/20 18:00 118 36 100/38 (58) 95 11/18/20 17:00 112 37 106/12 (43) 97 11/18/20 16:30 116 36 102/17 (45) 93 11/18/20 16:00 100.0 113 35 114/32 (59) 93 11/18/20 16:00 100.0 11/18/20 16:00 118 11/18/20 16:00 Mechanical Ventilator 11/18/20 15:30 117 36 107/14 (45) 94 11/18/20 15:21 116 34 100 11/18/20 15:00 117 35 121/31 (61) 93 11/18/20 14:30 118 36 113/29 (57) 94 11/18/20 14:00 118 35 142/33 (69) 92 11/18/20 13:30 108 37 88/19 (42) 92 11/18/20 13:00 100 11/18/20 13:00 119 36 146/22 (63) 92 11/18/20 12:54 107/17 11/18/20 12:30 94 32 107/17 (47) 94 11/18/20 12:01 99.9 96 33 108/16 (46) 90 11/18/20 12:00 96 33 108/16 (46) 90 11/18/20 12:00 Mechanical Ventilator 11/18/20 12:00 100 11/18/20 11:36 86 11/18/20 11:30 92 30 122/20 (54) 90 11/18/20 11:14 101 33 100 11/18/20 11:00 83 22 109/22 (51) 98 11/18/20 11:00 109/22 11/18/20 10:30 81 21 104/29 (54) 97 11/18/20 10:30 104/29 11/18/20 10:15 89/22 11/18/20 10:00 89/71 11/18/20 10:00 107 27 126/44 (71) 96 11/18/20 09:48 93 127/43 11/18/20 09:30 98 29 95/52 (66) 94 11/18/20 09:00 97 29 121/47 (71) 94 Intake and Output 11/18/20 11/19/20 19:00 07:00 Intake Total 2623.77603 ml 2338.739 ml Output Total 1795 ml 1170 ml Balance 828.98852 ml 1168.739 ml Free Water 1200 ml 800 ml IV Total 538.41874 ml 823.739 ml Tube Feeding 845 ml 715 ml Other 40 ml Output Urine Total 1795 ml 1170 ml Laboratory Tests 11/18/20 12:10: White Blood Count 16.7H, Red Blood Count 3.51L, Hemoglobin 11.0L, Hematocrit 3 1.6L, Mean Corpuscular Volume 90, Mean Corpuscular Hemoglobin 31.3H, Mean Corpuscular Hemoglobin Concent 34.8, Red Cell Distribution Width 15.0H, Platelet Count 175, Mean Platelet Volume 9.0, Neutrophils (%) (Auto) , Lymphocytes (%) (Auto) , Monocytes (%) (Auto) , Eosinophils (%) (Auto) , Basophils (%) (Auto) , Differential Total Cells Counted 100, Neutrophils % (Manual) 83H, Lymphocytes % (Manual) 16L, Monocytes % (Manual) 0L, Eosinophils % (Manual) 1, Basophils % (Manual) 0, Band Neutrophils 0, Platelet Estimate Adequate, Platelet Morphology Normal, Anisocytosis 1+, Sodium Level 150H, Potassium Level 6.0*H, Chloride Level 118H, Carbon Dioxide Level 25, Anion Gap 7, Blood Urea Nitrogen 153H, Creatinine 2.2H, Estimat Glomerular Filtration Rate 28.7, Glucose Level 268H, Calcium Level 8.2L, Phosphorus Level 3.9, Magnesium Level 2.5H, Random Vancomycin Level 20.2 11/18/20 12:30: POC Whole Blood Glucose 241H 11/18/20 17:50: POC Whole Blood Glucose 303H 11/18/20 19:10: Sodium Level 149H, Potassium Level 5.8H, Chloride Level 116H, Carbon Dioxide Level 29, Anion Gap 4L, Blood Urea Nitrogen 162H, Creatinine 2.7H, Estimat Glomerular Filtration Rate 22.6, Glucose Level 384#H, Calcium Level 7.9L 11/18/20 21:15: POC Whole Blood Glucose [Pending] 11/19/20 04:50: White Blood Count 14.1H, Red Blood Count 3.16L, Hemoglobin 9.7L, Hematocrit 31.1L, Mean Corpuscular Volume 99#, Mean Corpuscular Hemoglobin 30.9, Mean Corpuscular Hemoglobin Concent 31.3L, Red Cell Distribution Width 15.9H, Platelet Count 114L, Mean Platelet Volume 8.5, Neutrophils (%) (Auto) , Lymphocytes (%) (Auto) , Monocytes (%) (Auto) , Eosinophils (%) (Auto) , Basophils (%) (Auto) , Differential Total Cells Counted 100, Neutrophils % (Manual) 96H, Lymphocytes % (Manual) 4L, Monocytes % (Manual) 0L, Eosinophils % (Manual) 0, Basophils % (Manual) 0, Band Neutrophils 0, Platelet Estimate DecreasedL, Platelet Morphology Normal, Hypochromasia 1+, Anisocytosis 1+, Sodium Level 151H, Potassium Level 5.0, Chloride Level 116H, Carbon Dioxide Level 27, Anion Gap 8, Blood Urea Nitrogen 148H, Creatinine 2.3H, Estimat Glomerular Filtration Rate 27.2, Glucose Level 375H, Calcium Level 7.6L, Total Bilirubin 1.0, Aspartate Amino Transf (AST/SGOT) 50H, Alanine Aminotransferase (ALT/SGPT) 63, Alkaline Phosphatase 192H, Total Protein 5.7L, Albumin 1.5L, Globulin 4.2, Albumin/Globulin Ratio 0.4L, Random Vancomycin Level 14.9 11/19/20 07:56: Arterial Blood pH 7.244*L, Arterial Blood Partial Pressure CO2 59.9*H, Arterial Blood Partial Pressure O2 56.5L, Arterial Blood HCO3 25.3, Arterial Blood Oxygen Saturation 84.7*L, Arterial Blood Base Excess -2.6L, Jonathan Test Positive Height (Feet): 6 Height (Inches): 1.00 Weight (Pounds): 190 Objective General Appearance: other - intubated EENT: PERRL/EOMI, normal ENT inspection Neck: non-tender, normal alignment Cardiovascular: normal peripheral pulses, tachycardia Respiratory/Chest: chest wall non-tender, rhonchi - bilaterally Abdomen: normal bowel sounds, non tender Extremities: pitting Neurologic: unresponsive Kulwant Hong M.D. Nov 19, 2020 08:59
--- NOTE | 2020-11-19 09:15 | NUR ---
NURSE NOTES: Dr. Cabrera updated on the patient WBC count of 14.1 from this morning and no fever noted. no verbal orders given at this time.
--- NOTE | 2020-11-19 09:31 | General Progress Note ---
Subjective ROS Limited/Unobtainable: No Allergies: Coded Allergies: No Known Allergies (Unverified , 11/06/20) Objective Last 24 Hour Vital Signs Date Time Temp Pulse Resp B/P (MAP) Pulse Ox O2 Delivery O2 Flow Rate FiO2 11/19/20 08:00 100 11/19/20 08:00 98.3 88 29 123/25 (57) 93 11/19/20 08:00 Mechanical Ventilator 11/19/20 08:00 88 11/19/20 07:30 87 29 127/24 (58) 93 11/19/20 07:15 87 30 130/20 (56) 95 11/19/20 07:00 89 30 132/19 (56) 96 11/19/20 07:00 130/20 11/19/20 06:45 88 22 141/28 (65) 97 11/19/20 06:30 87 25 134/20 (58) 95 11/19/20 06:15 89 28 134/22 (59) 94 11/19/20 06:00 88 26 155/26 (69) 94 11/19/20 06:00 155/26 11/19/20 05:55 89 27 100 11/19/20 05:45 89 24 144/18 (60) 77 11/19/20 05:30 101 25 158/27 (70) 87 11/19/20 05:00 90/18 11/19/20 05:00 96 27 114/13 (46) 86 11/19/20 04:56 95/16 11/19/20 04:30 94 24 98/13 (41) 83 11/19/20 04:15 93 25 148/20 (62) 87 11/19/20 04:00 100 11/19/20 04:00 149/20 11/19/20 04:00 96 11/19/20 04:00 98.4 85 26 136/30 (65) 89 11/19/20 04:00 Mechanical Ventilator 11/19/20 03:15 83 26 140/32 (68) 88 11/19/20 03:00 140/30 11/19/20 03:00 84 23 146/24 (64) 89 11/19/20 02:48 84 26 100 11/19/20 02:45 81 25 145/22 (63) 89 11/19/20 02:30 77 26 139/29 (65) 89 11/19/20 02:15 77 27 134/20 (58) 87 11/19/20 02:00 132/19 11/19/20 02:00 77 27 131/29 (63) 89 11/19/20 01:30 78 27 132/19 (56) 90 11/19/20 01:00 117/32 11/19/20 01:00 87 27 118/30 (59) 90 11/19/20 00:45 107 26 105/18 (47) 87 11/19/20 00:30 110 23 145/25 (65) 88 11/19/20 00:15 112 28 148/26 (66) 86 11/19/20 00:10 111 25 145/29 (67) 85 11/19/20 00:00 98.0 108 26 154/27 (69) 86 11/19/20 00:00 100 11/19/20 00:00 Mechanical Ventilator 11/19/20 00:00 145/45 11/19/20 00:00 81 11/18/20 23:45 117 25 142/43 (76) 87 11/18/20 23:30 111 26 141/38 (72) 85 11/18/20 23:22 111 25 100 11/18/20 23:07 92/18 11/18/20 23:00 142/43 11/18/20 23:00 106 23 92/18 (42) 89 11/18/20 22:45 110 24 134/26 (62) 88 11/18/20 22:30 112 23 136/22 (60) 87 11/18/20 22:15 111 26 128/22 (57) 84 11/18/20 22:00 128/22 11/18/20 22:00 116 27 118/19 (52) 82 11/18/20 21:45 119 20 129/15 (53) 78 11/18/20 21:30 118 23 140/18 (58) 79 11/18/20 21:15 124 23 175/32 (79) 86 11/18/20 21:00 127 22 154/28 (70) 85 11/18/20 21:00 125/36 11/18/20 20:53 120 185/25 11/18/20 20:45 117 27 185/32 (82) 83 11/18/20 20:30 121 24 180/34 (82) 92 11/18/20 20:15 105 16 125/36 (65) 95 11/18/20 20:00 Mechanical Ventilator 11/18/20 20:00 107 11/18/20 20:00 80/20 11/18/20 20:00 102 16 134/26 (62) 94 11/18/20 20:00 100 11/18/20 19:47 120/28 11/18/20 19:45 106 14 120/28 (58) 92 11/18/20 19:30 106 23 100/15 (43) 89 11/18/20 19:30 87/50 11/18/20 19:15 111 24 83/21 (41) 85 11/18/20 19:05 112 26 100 11/18/20 19:00 103 33 83/32 (49) 81 11/18/20 18:30 117 34 95/11 (39) 97 11/18/20 18:00 118 36 100/38 (58) 95 11/18/20 17:00 112 37 106/12 (43) 97 11/18/20 16:30 116 36 102/17 (45) 93 11/18/20 16:00 100.0 113 35 114/32 (59) 93 11/18/20 16:00 100.0 11/18/20 16:00 118 11/18/20 16:00 Mechanical Ventilator 11/18/20 15:30 117 36 107/14 (45) 94 11/18/20 15:21 116 34 100 11/18/20 15:00 117 35 121/31 (61) 93 11/18/20 14:30 118 36 113/29 (57) 94 11/18/20 14:00 118 35 142/33 (69) 92 11/18/20 13:30 108 37 88/19 (42) 92 11/18/20 13:00 100 11/18/20 13:00 119 36 146/22 (63) 92 11/18/20 12:54 107/17 11/18/20 12:30 94 32 107/17 (47) 94 11/18/20 12:01 99.9 96 33 108/16 (46) 90 11/18/20 12:00 96 33 108/16 (46) 90 11/18/20 12:00 Mechanical Ventilator 11/18/20 12:00 100 11/18/20 11:36 86 11/18/20 11:30 92 30 122/20 (54) 90 11/18/20 11:14 101 33 100 11/18/20 11:00 83 22 109/22 (51) 98 11/18/20 11:00 109/22 11/18/20 10:30 81 21 104/29 (54) 97 11/18/20 10:30 104/29 11/18/20 10:15 89/22 11/18/20 10:00 89/71 11/18/20 10:00 107 27 126/44 (71) 96 11/18/20 09:48 93 127/43 Intake and Output 11/18/20 11/19/20 19:00 07:00 Intake Total 2623.96621 ml 2338.739 ml Output Total 1795 ml 1170 ml Balance 828.07731 ml 1168.739 ml Free Water 1200 ml 800 ml IV Total 538.51881 ml 823.739 ml Tube Feeding 845 ml 715 ml Other 40 ml Output Urine Total 1795 ml 1170 ml Laboratory Tests 11/18/20 12:10: White Blood Count 16.7H, Red Blood Count 3.51L, Hemoglobin 11.0L, Hematocrit 31.6L, Mean Corpuscular Volume 90, Mean Corpuscular Hemoglobin 31.3H, Mean Corpuscular Hemoglobin Concent 34.8, Red Cell Distribution Width 15.0H, Platelet Count 175, Mean Platelet Volume 9.0, Neutrophils (%) (Auto) , Lymphocytes (%) (Auto) , Monocytes (%) (Auto) , Eosinophils (%) (Auto) , Basophils (%) (Auto) , Differential Total Cells Counted 100, Neutrophils % (Manual) 83H, Lymphocytes % (Manual) 16L, Monocytes % (Manual) 0L, Eosinophils % (Manual) 1, Basophils % (Manual) 0, Band Neutrophils 0, Platelet Estimate Adequate, Platelet Morphology Normal, Anisocytosis 1+, Sodium Level 150H, Potassium Level 6.0*H, Chloride Level 118H, Carbon Dioxide Level 25, Anion Gap 7, Blood Urea Nitrogen 153H, Creatinine 2.2H, Estimat Glomerular Filtration Rate 28.7, Glucose Level 268H, Calcium Level 8.2L, Phosphorus Level 3.9, Magnesium Level 2.5H, Random Vancomycin Level 20.2 11/18/20 12:30: POC Whole Blood Glucose 241H 11/18/20 17:50: POC Whole Blood Glucose 303H 11/18/20 19:10: Sodium Level 149H, Potassium Level 5.8H, Chloride Level 116H, Carbon Dioxide Level 29, Anion Gap 4L, Blood Urea Nitrogen 162H, Creatinine 2.7H, Estimat Glomerular Filtration Rate 22.6, Glucose Level 384#H, Calcium Level 7.9L 11/18/20 21:15: POC Whole Blood Glucose [Pending] 11/19/20 04:50: White Blood Count 14.1H, Red Blood Count 3.16L, Hemoglobin 9.7L, Hematocrit 31.1L, Mean Corpuscular Volume 99#, Mean Corpuscular Hemoglobin 30.9, Mean Corpuscular Hemoglobin Concent 31.3L, Red Cell Distribution Width 15.9H, Platelet Count 114L, Mean Platelet Volume 8.5, Neutrophils (%) (Auto) , Lymphocytes (%) (Auto) , Monocytes (%) (Auto) , Eosinophils (%) (Auto) , Basophils (%) (Auto) , Differential Total Cells Counted 100, Neutrophils % (Manual) 96H, Lymphocytes % (Manual) 4L, Monocytes % (Manual) 0L, Eosinophils % (Manual) 0, Basophils % (Manual) 0, Band Neutrophils 0, Platelet Estimate DecreasedL, Platelet Morphology Normal, Hypochromasia 1+, Anisocytosis 1+, Sodium Level 151H, Potassium Level 5.0, Chloride Level 116H, Carbon Dioxide Level 27, Anion Gap 8, Blood Urea Nitrogen 148H, Creatinine 2.3H, Estimat Glomerular Filtration Rate 27.2, Glucose Level 375H, Calcium Level 7.6L, Total Bilirubin 1.0, Aspartate Amino Transf (AST/SGOT) 50H, Alanine Aminotransferase (ALT/SGPT) 63, Alkaline Phosphatase 192H, Total Protein 5.7L, Albumin 1.5L, Globulin 4.2, Albumin/Globulin Ratio 0.4L, Random Vancomycin Level 14.9 11/19/20 07:56: Arterial Blood pH 7.244*L, Arterial Blood Partial Pressure CO2 59.9*H, Arterial Blood Partial Pressure O2 56.5L, Arterial Blood HCO3 25.3, Arterial Blood Oxygen Saturation 84.7*L, Arterial Blood Base Excess -2.6L, Jonathan Test Positive Height (Feet): 6 Height (Inches): 1.00 Weight (Pounds): 190 General Appearance: no apparent distress EENT: normal ENT inspection Neck: supple Cardiovascular: normal rate Respiratory/Chest: decreased breath sounds Abdomen: normal bowel sounds, non tender, soft Extremities: non-tender Assessment/Plan Problem List: (1) COVID-19 ICD Codes: U07.1 - COVID-19 SNOMED: 830505698 (2) Elevated troponin ICD Codes: R77.8 - Other specified abnormalities of plasma proteins SNOMED: 975220537, 556127032, 452248964 (3) Renal failure ICD Codes: N19 - Unspecified kidney failure SNOMED: 95872866, 33013067 (4) Hypoxemia ICD Codes: R09.02 - Hypoxemia SNOMED: 787473780, 23938430 (5) ARDS (adult respiratory distress syndrome) ICD Codes: J80 - Acute respiratory distress syndrome SNOMED: 41098341, 84026594 Status: stable Assessment/Plan: GTF running reglan fu labs icu care covid isolation Benoit Saavedra MD Nov 19, 2020 09:31
[2020-11-19] MEDS: Docusate 100mg/10ml Liq GT SCH ×2 (10:07→20:49)
[2020-11-19] MEDS: Solu-MEDROL 40mg Inj IVP SCH ×2 (10:08→20:49)
[2020-11-19] MEDS: Pantoprazole Inj IVP SCH (10:08)
[2020-11-19] MEDS: Levemir Flexpen SUBQ SCH ×2 (10:09→20:50)
--- NOTE | 2020-11-19 10:15 | NUR ---
NURSE NOTES: orders placed by Dr. Hong to administer 60mg of Lasix and a bolus of 500ml of d5w. metoprolol discontinued due to the patient being on Levophed and dopamine.
--- NOTE | 2020-11-19 11:58 | NUR ---
NURSE NOTES: Dr. Gaspar updated on patient and results on setting of ac 16, pc 30, FIo2 100% and peep of 10. ordered to have the ventilator settings changed to AC 14, TV:450, fio2 100% and peep of 5 after reviewing the patient ABG results. also have an abg to be drawn at one hour after setting changed. also ordered to have the restraints discontinues since the patient mental status.
--- NOTE | 2020-11-19 12:03 | General Progress Note ---
Subjective Allergies: Coded Allergies: No Known Allergies (Unverified , 11/06/20) Subjective Visited patient at bedside; on Dopamine, Levophed, Fi02 60%. Renal function remains poor. Appreciate Consultants. Objective Last 24 Hour Vital Signs Date Time Temp Pulse Resp B/P (MAP) Pulse Ox O2 Delivery O2 Flow Rate FiO2 11/19/20 11:00 87 25 125/33 (63) 92 11/19/20 10:30 92 26 125/20 (55) 93 11/19/20 10:00 90 28 126/17 (53) 94 11/19/20 09:30 90 28 121/20 (53) 94 11/19/20 09:00 91 29 127/19 (55) 94 11/19/20 08:30 89 26 128/22 (57) 93 11/19/20 08:00 100 11/19/20 08:00 98.3 88 29 123/25 (57) 93 11/19/20 08:00 Mechanical Ventilator 11/19/20 08:00 88 11/19/20 07:30 87 29 127/24 (58) 93 11/19/20 07:15 87 30 130/20 (56) 95 11/19/20 07:00 89 30 132/19 (56) 96 11/19/20 07:00 130/20 11/19/20 06:45 88 22 141/28 (65) 97 11/19/20 06:30 87 25 134/20 (58) 95 11/19/20 06:15 89 28 134/22 (59) 94 11/19/20 06:00 88 26 155/26 (69) 94 11/19/20 06:00 155/26 11/19/20 05:55 89 27 100 11/19/20 05:45 89 24 144/18 (60) 77 11/19/20 05:30 101 25 158/27 (70) 87 11/19/20 05:00 90/18 11/19/20 05:00 96 27 114/13 (46) 86 11/19/20 04:56 95/16 11/19/20 04:30 94 24 98/13 (41) 83 11/19/20 04:15 93 25 148/20 (62) 87 11/19/20 04:00 100 11/19/20 04:00 149/20 11/19/20 04:00 96 11/19/20 04:00 98.4 85 26 136/30 (65) 89 11/19/20 04:00 Mechanical Ventilator 11/19/20 03:15 83 26 140/32 (68) 88 11/19/20 03:00 140/30 11/19/20 03:00 84 23 146/24 (64) 89 11/19/20 02:48 84 26 100 11/19/20 02:45 81 25 145/22 (63) 89 11/19/20 02:30 77 26 139/29 (65) 89 11/19/20 02:15 77 27 134/20 (58) 87 11/19/20 02:00 132/19 11/19/20 02:00 77 27 131/29 (63) 89 11/19/20 01:30 78 27 132/19 (56) 90 11/19/20 01:00 117/32 11/19/20 01:00 87 27 118/30 (59) 90 11/19/20 00:45 107 26 105/18 (47) 87 11/19/20 00:30 110 23 145/25 (65) 88 11/19/20 00:15 112 28 148/26 (66) 86 11/19/20 00:10 111 25 145/29 (67) 85 11/19/20 00:00 98.0 108 26 154/27 (69) 86 11/19/20 00:00 100 11/19/20 00:00 Mechanical Ventilator 11/19/20 00:00 145/45 11/19/20 00:00 81 11/18/20 23:45 117 25 142/43 (76) 87 11/18/20 23:30 111 26 141/38 (72) 85 11/18/20 23:22 111 25 100 11/18/20 23:07 92/18 11/18/20 23:00 142/43 11/18/20 23:00 106 23 92/18 (42) 89 11/18/20 22:45 110 24 134/26 (62) 88 11/18/20 22:30 112 23 136/22 (60) 87 11/18/20 22:15 111 26 128/22 (57) 84 11/18/20 22:00 128/22 11/18/20 22:00 116 27 118/19 (52) 82 11/18/20 21:45 119 20 129/15 (53) 78 11/18/20 21:30 118 23 140/18 (58) 79 11/18/20 21:15 124 23 175/32 (79) 86 11/18/20 21:00 127 22 154/28 (70) 85 11/18/20 21:00 125/36 11/18/20 20:53 120 185/25 11/18/20 20:45 117 27 185/32 (82) 83 11/18/20 20:30 121 24 180/34 (82) 92 11/18/20 20:15 105 16 125/36 (65) 95 11/18/20 20:00 Mechanical Ventilator 11/18/20 20:00 107 11/18/20 20:00 80/20 11/18/20 20:00 102 16 134/26 (62) 94 11/18/20 20:00 100 11/18/20 19:47 120/28 11/18/20 19:45 106 14 120/28 (58) 92 11/18/20 19:30 106 23 100/15 (43) 89 11/18/20 19:30 87/50 11/18/20 19:15 111 24 83/21 (41) 85 11/18/20 19:05 112 26 100 11/18/20 19:00 103 33 83/32 (49) 81 11/18/20 18:30 117 34 95/11 (39) 97 11/18/20 18:00 118 36 100/38 (58) 95 11/18/20 17:00 112 37 106/12 (43) 97 11/18/20 16:30 116 36 102/17 (45) 93 11/18/20 16:00 100.0 113 35 114/32 (59) 93 11/18/20 16:00 100.0 11/18/20 16:00 118 11/18/20 16:00 Mechanical Ventilator 11/18/20 15:30 117 36 107/14 (45) 94 11/18/20 15:21 116 34 100 11/18/20 15:00 117 35 121/31 (61) 93 11/18/20 14:30 118 36 113/29 (57) 94 11/18/20 14:00 118 35 142/33 (69) 92 11/18/20 13:30 108 37 88/19 (42) 92 11/18/20 13:00 100 11/18/20 13:00 119 36 146/22 (63) 92 11/18/20 12:54 107/17 11/18/20 12:30 94 32 107/17 (47) 94 11/18/20 12:01 99.9 96 33 108/16 (46) 90 11/18/20 12:00 96 33 108/16 (46) 90 11/18/20 12:00 Mechanical Ventilator 11/18/20 12:00 100 Intake and Output 11/18/20 11/19/20 19:00 07:00 Intake Total 2623.41273 ml 2338.739 ml Output Total 1795 ml 1170 ml Balance 828.46946 ml 1168.739 ml Free Water 1200 ml 800 ml IV Total 538.59574 ml 823.739 ml Tube Feeding 845 ml 715 ml Other 40 ml Output Urine Total 1795 ml 1170 ml Laboratory Tests 11/18/20 12:10: White Blood Count 16.7H, Red Blood Count 3.51L, Hemoglobin 11.0L, Hematocrit 31.6L, Mean Corpuscular Volume 90, Mean Corpuscular Hemoglobin 31.3H, Mean Corpuscular Hemoglobin Concent 34.8, Red Cell Distribution Width 15.0H, Platelet Count 175, Mean Platelet Volume 9.0, Neutrophils (%) (Auto) , Lymphocytes (%) (Auto) , Monocytes (%) (Auto) , Eosinophils (%) (Auto) , Basophils (%) (Auto) , Differential Total Cells Counted 100, Neutrophils % (Manual) 83H, Lymphocytes % (Manual) 16L, Monocytes % (Manual) 0L, Eosinophils % (Manual) 1, Basophils % (Manual) 0, Band Neutrophils 0, Platelet Estimate Adequate, Platelet Morphology Normal, Anisocytosis 1+, Sodium Level 150H, Potassium Level 6.0*H, Chloride Level 118H, Carbon Dioxide Level 25, Anion Gap 7, Blood Urea Nitrogen 153H, Creatinine 2.2H, Estimat Glomerular Filtration Rate 28.7, Glucose Level 268H, Calcium Level 8.2L, Phosphorus Level 3.9, Magnesium Level 2.5H, Random Vancomycin Level 20.2 11/18/20 12:30: POC Whole Blood Glucose 241H 11/18/20 17:50: POC Whole Blood Glucose 303H 11/18/20 19:10: Sodium Level 149H, Potassium Level 5.8H, Chloride Level 116H, Carbon Dioxide Level 29, Anion Gap 4L, Blood Urea Nitrogen 162H, Creatinine 2.7H, Estimat G lomerular Filtration Rate 22.6, Glucose Level 384#H, Calcium Level 7.9L 11/18/20 21:15: POC Whole Blood Glucose [Pending] 11/19/20 04:50: White Blood Count 14.1H, Red Blood Count 3.16L, Hemoglobin 9.7L, Hematocrit 31.1L, Mean Corpuscular Volume 99#, Mean Corpuscular Hemoglobin 30.9, Mean Corpuscular Hemoglobin Concent 31.3L, Red Cell Distribution Width 15.9H, Platelet Count 114L, Mean Platelet Volume 8.5, Neutrophils (%) (Auto) , Lymphocytes (%) (Auto) , Monocytes (%) (Auto) , Eosinophils (%) (Auto) , Basophils (%) (Auto) , Differential Total Cells Counted 100, Neutrophils % (Manual) 96H, Lymphocytes % (Manual) 4L, Monocytes % (Manual) 0L, Eosinophils % (Manual) 0, Basophils % (Manual) 0, Band Neutrophils 0, Platelet Estimate DecreasedL, Platelet Morphology Normal, Hypochromasia 1+, Anisocytosis 1+, Sodium Level 151H, Potassium Level 5.0, Chloride Level 116H, Carbon Dioxide Level 27, Anion Gap 8, Blood Urea Nitrogen 148H, Creatinine 2.3H, Estimat Glomerular Filtration Rate 27.2, Glucose Level 375H, Calcium Level 7.6L, Total Bilirubin 1.0, Aspartate Amino Transf (AST/SGOT) 50H, Alanine Aminotransferase (ALT/SGPT) 63, Alkaline Phosphatase 192H, Total Protein 5.7L, Albumin 1.5L, Globulin 4.2, Albumin/Globulin Ratio 0.4L, Random Vancomycin Level 14.9 11/19/20 07:56: Arterial Blood pH 7.244*L, Arterial Blood Partial Pressure CO2 59.9*H, Arterial Blood Partial Pressure O2 56.5L, Arterial Blood HCO3 25.3, Arterial Blood Oxygen Saturation 84.7*L, Arterial Blood Base Excess -2.6L, Jonathan Test Positive 11/19/20 09:48: POC Whole Blood Glucose 403H Height (Feet): 6 Height (Inches): 1.00 Weight (Pounds): 190 Objective Intubated/Sedated/Critical NG tube in place Anasarca Diffuse RRR, on pressor support, CVC line noted Montilla Cath Abdomen non distended Sedated, non focal Neuro Exam Assessment/Plan Status: stable Assessment/Plan: 84 yo M w DM2, HTN, ? CKD admitted for Covid19 PNA with SAMEER #Septic shock # acute hypoxemia Resp failure 2/2 covid PNA - + > s/p intubation on 11/07/20. EtTube out on 11/11 but re-inserted # Covid PNA - #Pneumomediastinum # Lactic acid elevation # elevated D dimer # Trop elevated - Patient full code. See Advanced care plan note. Will continue discussions as patient progresses - s/p IVF bolus in ED, will keep lung dry as much as possible - s/p decadron 6mg iv daily - s/p solumedrol Q12hr (11/08 started) - s/p Remdesivir per ID (11/09 started) - s/p azithromycin (11/08 started ) - s/p Vancomycin (11/09 started) - s/p Zosyn (11/09 started) - Blood and urine culture, central line culture - replace fem line with PICC today - Restarted Vanc/Zosyn (11/17 - ) - CXR with improvement with pneumomediastinum - Abx per ID - pulm consult: Chasity - ID consult: Steven - Cards consult - trend ABG: reviewed - Continue Ac/VC - Pressor support w/ Dopamine and Levophed - propofol for sedation - monitor triglycerides - Wean vent as tolerated - s/p NG tube 11/07 for meds. start tube feeding - IV fluids per nephro #S. hominis bacteremia, Contaminant? Defer to ID #Bilateral superimposed pneumonia - ID consulted: Dr. Harris - Follow surveilance cultures - Vanc per pharm (11/08 - ) - Zosyn (11/08 - ) #Anemia - concern for GI bleed - Hgb stable - GI consult Dr. Saavedra # Malnutrition #HTN, current normotensive - Tube feedings - Appreciate surgery recs - D/w RN # DM2 uncontrolled #hyperglycemia - detemir 10 units BID - continue SSI - accuchecks - hypoglycemia protocol # SAMEER vs. SAMEER on CKD, likely prerenal #Uremia # Dehydration - renal consult - Gentle IV fluids - i/o monitor, montilla cath FENPPX DVTPPX: lovenox GI PPX: protonix Fluids: per nephro Diet: NPO, tube feedings PT/OT: deferred Code status: Full code Dispo: SNF eventually. Guarded prognosis. Family aware Reason for Continued Hospitalization: Hypoxia Time of my involvement, the patient's condition was critical with high potential for and/or physiologic deterioration secondary to acute hypoxic respir atory failure as delineated in the note above. On the above date of service, I spent a total of 42 minutes in the ICU evaluatin g, managing, and providing critical care services to this patient, including time spent documenting these activities, counseling patient/family, and coordinating care. Critical care services performed include: -Telemetry review -Hemodynamic measurement interpretation -Laboratory data review and interpretation -Vent setting reviewed, management -Discussion of care plans with patient, family, and/or surrogate decision makers -Discussion of patient's care with medical team, surgical team, and/or consulting service -Decision to obtain further radiologic evaluation, after consideration of the risk/benefit ratio -Review of most recent microbiology results assessment and modification of antimicrobial coverage -Discussion of patient's CODE STATUS and further advancement towards the ultimate goals of care. Plan outlined above discussed with patient/family, CREPING MACHINE OPERATOR, ICU team, and involved physician/consultants. Time of note not necessarily time patient was seen Angelica Colby D.O. Nov 19, 2020 12:03
[2020-11-19] MEDS ORDERED: Levemir Flexpen SUBQ SCH (12:08)
--- NOTE | 2020-11-19 12:30 | NUR ---
NURSE NOTES: Dr. Colby updated on the patient mental status, i will endorse to neurology about the patient mental status. no orders given at this time, placed order to have an additional dose of 6units of Levemir to me administered.
[2020-11-19] MEDS: DOPamine 400mg/250ml 250 ML IV SCH ×2 (12:58→20:00)
--- NOTE | 2020-11-19 13:10 | Pulmonology Progress Note ---
Subjective ROS Limited/Unobtainable: No Interval Events: No change in neuro status Constitutional: Reports: fever HEENT: Repors: no symptoms Respiratory: Reports: no symptoms Cardiovascular: Reports: no symptoms Gastrointestinal/Abdominal: Reports: no symptoms Allergies: Coded Allergies: No Known Allergies (Unverified , 11/06/20) Objective Last 24 Hour Vital Signs Date Time Temp Pulse Resp B/P (MAP) Pulse Ox O2 Delivery O2 Flow Rate FiO2 11/19/20 12:58 128/19 11/19/20 12:20 94 31 100 11/19/20 12:00 97 29 132/32 (65) 90 11/19/20 12:00 100 11/19/20 12:00 90 11/19/20 11:30 97 28 133/25 (61) 90 11/19/20 11:00 87 25 125/33 (63) 92 11/19/20 10:30 92 26 125/20 (55) 93 11/19/20 10:00 90 28 126/17 (53) 94 11/19/20 09:30 90 28 121/20 (53) 94 11/19/20 09:00 91 29 127/19 (55) 94 11/19/20 08:30 89 26 128/22 (57) 93 11/19/20 08:00 100 11/19/20 08:00 98.3 88 29 123/25 (57) 93 11/19/20 08:00 Mechanical Ventilator 11/19/20 08:00 88 11/19/20 07:30 87 29 127/24 (58) 93 11/19/20 07:25 88 30 100 11/19/20 07:15 87 30 130/20 (56) 95 11/19/20 07:00 89 30 132/19 (56) 96 11/19/20 07:00 130/20 11/19/20 06:45 88 22 141/28 (65) 97 11/19/20 06:30 87 25 134/20 (58) 95 11/19/20 06:15 89 28 134/22 (59) 94 11/19/20 06:00 88 26 155/26 (69) 94 11/19/20 06:00 155/26 11/19/20 05:55 89 27 100 11/19/20 05:45 89 24 144/18 (60) 77 11/19/20 05:30 101 25 158/27 (70) 87 11/19/20 05:00 90/18 11/19/20 05:00 96 27 114/13 (46) 86 11/19/20 04:56 95/16 11/19/20 04:30 94 24 98/13 (41) 83 11/19/20 04:15 93 25 148/20 (62) 87 11/19/20 04:00 100 11/19/20 04:00 149/20 11/19/20 04:00 96 11/19/20 04:00 98.4 85 26 136/30 (65) 89 11/19/20 04:00 Mechanical Ventilator 11/19/20 03:15 83 26 140/32 (68) 88 11/19/20 03:00 140/30 11/19/20 03:00 84 23 146/24 (64) 89 11/19/20 02:48 84 26 100 11/19/20 02:45 81 25 145/22 (63) 89 11/19/20 02:30 77 26 139/29 (65) 89 11/19/20 02:15 77 27 134/20 (58) 87 11/19/20 02:00 132/19 11/19/20 02:00 77 27 131/29 (63) 89 11/19/20 01:30 78 27 132/19 (56) 90 11/19/20 01:00 117/32 11/19/20 01:00 87 27 118/30 (59) 90 11/19/20 00:45 107 26 105/18 (47) 87 11/19/20 00:30 110 23 145/25 (65) 88 11/19/20 00:15 112 28 148/26 (66) 86 11/19/20 00:10 111 25 145/29 (67) 85 11/19/20 00:00 98.0 108 26 154/27 (69) 86 11/19/20 00:00 100 11/19/20 00:00 Mechanical Ventilator 11/19/20 00:00 145/45 11/19/20 00:00 81 11/18/20 23:45 117 25 142/43 (76) 87 11/18/20 23:30 111 26 141/38 (72) 85 11/18/20 23:22 111 25 100 11/18/20 23:07 92/18 11/18/20 23:00 142/43 11/18/20 23:00 106 23 92/18 (42) 89 11/18/20 22:45 110 24 134/26 (62) 88 11/18/20 22:30 112 23 136/22 (60) 87 11/18/20 22:15 111 26 128/22 (57) 84 11/18/20 22:00 128/22 11/18/20 22:00 116 27 118/19 (52) 82 11/18/20 21:45 119 20 129/15 (53) 78 11/18/20 21:30 118 23 140/18 (58) 79 11/18/20 21:15 124 23 175/32 (79) 86 11/18/20 21:00 127 22 154/28 (70) 85 11/18/20 21:00 125/36 11/18/20 20:53 120 185/25 11/18/20 20:45 117 27 185/32 (82) 83 11/18/20 20:30 121 24 180/34 (82) 92 11/18/20 20:15 105 16 125/36 (65) 95 11/18/20 20:00 Mechanical Ventilator 11/18/20 20:00 107 11/18/20 20:00 80/20 11/18/20 20:00 102 16 134/26 (62) 94 11/18/20 20:00 100 11/18/20 19:47 120/28 11/18/20 19:45 106 14 120/28 (58) 92 11/18/20 19:30 106 23 100/15 (43) 89 11/18/20 19:30 87/50 11/18/20 19:15 111 24 83/21 (41) 85 11/18/20 19:05 112 26 100 11/18/20 19:00 103 33 83/32 (49) 81 11/18/20 18:30 117 34 95/11 (39) 97 11/18/20 18:00 118 36 100/38 (58) 95 11/18/20 17:00 112 37 106/12 (43) 97 11/18/20 16:30 116 36 102/17 (45) 93 11/18/20 16:00 100.0 113 35 114/32 (59) 93 11/18/20 16:00 100.0 11/18/20 16:00 118 11/18/20 16:00 Mechanical Ventilator 11/18/20 15:30 117 36 107/14 (45) 94 11/18/20 15:21 116 34 100 11/18/20 15:00 117 35 121/31 (61) 93 11/18/20 14:30 118 36 113/29 (57) 94 11/18/20 14:00 118 35 142/33 (69) 92 11/18/20 13:30 108 37 88/19 (42) 92 Intake and Output 11/18/20 11/19/20 19:00 07:00 Intake Total 2623.55623 ml 2338.739 ml Output Total 1795 ml 1170 ml Balance 828.00648 ml 1168.739 ml Free Water 1200 ml 800 ml IV Total 538.24158 ml 823.739 ml Tube Feeding 845 ml 715 ml Other 40 ml Output Urine Total 1795 ml 1170 ml General Appearance: no acute distress HEENT: normocephalic Respiratory: chest wall non-tender, lungs clear Cardiovascular: normal peripheral pulses, normal rate Abdomen: normal bowel sounds Microbiology Date/Time Source Procedure Growth Status 11/17/20 12:30 Blood Blood Culture - Preliminary NO GROWTH AFTER 24 HOURS Resulted 11/17/20 12:25 Indwelling Cath Urine Culture - Final NO GROWTH AFTER 48 HOURS Complete 11/17/20 12:15 Blood Blood Culture - Preliminary NO GROWTH AFTER 24 HOURS Resulted Laboratory Tests 11/18/20 17:50: POC Whole Blood Glucose 303H 11/18/20 19:10: Sodium Level 149H, Potassium Level 5.8H, Chloride Level 116H, Carbon Dioxide Level 29, Anion Gap 4L, Blood Urea Nitrogen 162H, Creatinine 2.7H, Estimat Glomerular Filtration Rate 22.6, Glucose Level 384#H, Calcium Level 7.9L 11/18/20 21:15: POC Whole Blood Glucose [Pending] 11/19/20 04:50: Sodium Level 151H, Potassium Level 5.0, Chloride Level 116H, Carbon Dioxide Level 27, Anion Gap 8, Blood Urea Nitrogen 148H, Creatinine 2.3H, Estimat Glomerular Filtration Rate 27.2, Glucose Level 375H, Calcium Level 7.6L, White Blood Count 14.1H, Red Blood Count 3.16L, Hemoglobin 9.7L, Hematocrit 31.1L, Mean Corpuscular Volume 99#, Mean Corpuscular Hemoglobin 30.9, Mean Corpuscular Hemoglobin Concent 31.3L, Red Cell Distribution Width 15.9H, Platelet Count 114L , Mean Platelet Volume 8.5, Neutrophils (%) (Auto) , Lymphocytes (%) (Auto) , Monocytes (%) (Auto) , Eosinophils (%) (Auto) , Basophils (%) (Auto) , Differential Total Cells Counted 100, Neutrophils % (Manual) 96H, Lymphocytes % (Manual) 4L, Monocytes % (Manual) 0L, Eosinophils % (Manual) 0, Basophils % (Manual) 0, Band Neutrophils 0, Platelet Estimate DecreasedL, Platelet Morphology Normal, Hypochromasia 1+, Anisocytosis 1+, Total Bilirubin 1.0, Aspartate Amino Transf (AST/SGOT) 50H, Alanine Aminotransferase (ALT/SGPT) 63, Alkaline Phosphatase 192H, Total Protein 5.7L, Albumin 1.5L, Globulin 4.2, Albumin/Globulin Ratio 0.4L, Random Vancomycin Level 14.9 11/19/20 07:56: Arterial Blood pH 7.244*L, Arterial Blood Partial Pressure CO2 59.9*H, Arterial Blood Partial Pressure O2 56.5L, Arterial Blood HCO3 25.3, Arterial Blood Oxygen Saturation 84.7*L, Arterial Blood Base Excess -2.6L, Jonathan Test Positive 11/19/20 09:48: POC Whole Blood Glucose 403H Current Medications Medications (Trade) Dose Ordered Sig/Violet Route PRN Reason Start Time Stop Time Status Last Admin Dose Admin Acetaminophen (Tylenol) 650 mg Q4H PRN GT Temp >100.5 11/12/20 11:00 12/12/20 10:44 11/18/20 14:55 Chlorhexidine Gluconate (Patt-Hex 2%) 1 applic DAILY@2000 TOPIC 11/17/20 20:00 02/15/21 19:59 11/17/20 21:17 Dextrose 1,000 ml @ 0 mls/hr Q0M IV 11/17/20 10:30 12/17/20 10:29 Dextrose (Dextrose 50%) 25 ml Q30M PRN IV Hypoglycemia 11/06/20 20:00 02/04/21 19:59 Dextrose (Dextrose 50%) 50 ml Q30M PRN IV Hypoglycemia 11/06/20 20:00 02/04/21 19:59 Docusate Sodium (Colace) 100 mg EVERY 12 HOURS GT 11/17/20 21:00 12/14/20 17:59 11/19/20 10:07 Dopamine HCl/ Dextrose 250 ml @ 0 mls/hr Q24H IV 11/16/20 14:00 11/19/20 13:56 11/19/20 12:58 Enoxaparin Sodium (Lovenox) 40 mg Q24H SUBQ 11/07/20 21:00 02/05/21 20:59 11/18/20 20:54 Flumazenil (Romazicon) 0.2 mg NEEDED PRN IV Sedation reversal 11/06/20 20:00 Insulin Aspart (NovoLOG) EVERY 6 HOURS SUBQ 11/08/20 12:00 02/05/21 16:29 11/19/20 12:48 Insulin Detemir (Levemir) 6 units ONCE SUBQ 11/19/20 12:08 11/19/20 14:30 11/19/20 12:49 Insulin Detemir (Levemir) 20 units EVERY 12 HOURS SUBQ 11/19/20 21:00 02/05/21 20:59 Lidocaine HCl (Xylocaine 1% 30ml) 30 ml ONCE PRN INJ PICC LINE 11/18/20 10:00 11/20/20 09:59 Methylprednisolone Sodium Succinate (Solu-MEDROL) 40 mg EVERY 12 HOURS IVP 11/18/20 12:30 02/16/21 12:29 11/19/20 10:08 Metoclopramide HCl (Reglan) 5 mg Q6HR IVP 11/14/20 12:26 12/14/20 12:25 11/19/20 12:46 Naloxone HCl (Narcan) 0.4 mg NEEDED PRN IVP RR less than 6/min 11/06/20 20:00 02/04/21 19:59 Norepinephrine Bitartrate 250 ml @ 0 mls/hr Q24H IV 11/18/20 19:30 11/21/20 19:28 11/19/20 04:56 Ondansetron HCl (Zofran) 4 mg Q6H PRN IVP Nausea & Vomiting 11/06/20 20:00 12/06/20 19:59 Pantoprazole (Protonix) 40 mg DAILY IVP 11/08/20 09:00 12/08/20 08:59 11/19/20 10:08 Piperacillin Sod/ Tazobactam Sod 3.375 gm/Sodium Chloride 110 ml @ 27.5 mls/hr Q8HR IVPB 11/17/20 22:00 11/24/20 21:59 11/19/20 06:06 Polyethylene Glycol (Miralax) 17 gm BEDTIME GT 11/14/20 21:00 12/14/20 20:59 11/18/20 20:52 Vancomycin HCl 250 ml @ 166.667 mls/hr ONCE IVPB 11/19/20 12:00 11/19/20 14:00 11/19/20 12:46 Vancomycin HCl (Vanco pharmacy to dose) 1 ea DAILY PRN MISC Per rx protocol 11/17/20 11:30 12/17/20 11:29 Assessment/Plan Assessment/Plan IMPRESSION: 1. COVID-19 pneumonia. 2. Diabetes mellitus. 3. Hypertension. 4. Hyperkalemia. 5. CKD. 6. Metabolic acidosis. 7. Respiratory Failure; Acute Lung Injury 9. Change in mental status; will dc sedation; continue vent; may need head CT DISCUSSION: Continue broad-spectrum antibiotics. Continue vent/AC mode Currently FiO2 100%; PEEP decreased to 5 Endo tracheal tube adjusted; pt holding volumes on vent now Had to be repositioned yesterday Attempted pressure control ventilation for 24 hours He is retaining CO2; will switch back top volume control Blood sugar control, Continue Decadron. Off propofol Check labs and ABG AM CXR unchanged Noted neurology evaluation Jud Werner Omar Syed MD Nov 19, 2020 13:10
--- NOTE | 2020-11-19 13:10 | NUR ---
NURSE NOTES: Dr. Hong made aware of patient Potassium level of 5.0 and sodium level at 151, 400ml water flushes being given throughout the shift. patient remains on tube feeding at rate 65ml/hr. remains on Levophed at 4 mcg/min. and dopamine at 2mcg/kg/min. Addendum: 11/19/20 at 1653 by Rayo Stanton RN additional order to have bmp drawn at 1800 and notify with results.
--- NOTE | 2020-11-19 13:20 | Neurology Progress Note ---
Interim History Interim History ROS Limited/Unobtainable: Yes Objective Physical Exam Last Vital Signs Date Time Temp Pulse Resp B/P (MAP) Pulse Ox O2 Delivery O2 Flow Rate FiO2 11/19/20 12:58 128/19 11/19/20 12:20 94 31 100 11/19/20 12:00 90 11/19/20 08:00 98.3 11/19/20 08:00 Mechanical Ventilator Laboratory Tests Test 11/18/20 17:50 11/18/20 19:10 11/18/20 21:15 11/19/20 04:50 POC Whole Blood Glucose 303 MG/DL (74-106) H Pending Sodium Level 149 MMOL/L (136-145) H 151 MMOL/L (136-145) H Potassium Level 5.8 MMOL/L (3.5-5.1) H 5.0 MMOL/L (3.5-5.1) Chloride Level 116 MMOL/L (98-107) H 116 MMOL/L (98-107) H Carbon Dioxide Level 29 MMOL/L (21-32) 27 MMOL/L (21-32) Anion Gap 4 mmol/L (5-15) L 8 mmol/L (5-15) Blood Urea Nitrogen 162 mg/dL (7-18) H 148 mg/dL (7-18) H Creatinine 2.7 MG/DL (0.55-1.30) H 2.3 MG/DL (0.55-1.30) H Estimat Glomerular Filtration Rate 22.6 mL/min (>60) 27.2 mL/min (>60) Glucose Level 384 MG/DL (74-106) #H 375 MG/DL (74-106) H Calcium Level 7.9 MG/DL (8.5-10.1) L 7.6 MG/DL (8.5-10.1) L White Blood Count 14.1 K/UL (4.8-10.8) H Red Blood Count 3.16 M/UL (4.70-6.10) L Hemoglobin 9.7 G/DL (14.2-18.0) L Hematocrit 31.1 % (42.0-52.0) L Mean Corpuscular Volume 99 FL (80-99) # Mean Corpuscular Hemoglobin 30.9 PG (27.0-31.0) Mean Corpuscular Hemoglobin Concent 31.3 G/DL (32.0-36.0) L Red Cell Distribution Width 15.9 % (11.6-14.8) H Platelet Count 114 K/UL (150-450) L Mean Platelet Volume 8.5 FL (6.5-10.1) Neutrophils (%) (Auto) % (45.0-75.0) Lymphocytes (%) (Auto) % (20.0-45.0) Monocytes (%) (Auto) % (1.0-10.0) Eosinophils (%) (Auto) % (0.0-3.0) Basophils (%) (Auto) % (0.0-2.0) Differential Total Cells Counted 100 Neutrophils % (Manual) 96 % (45-75) H Lymphocytes % (Manual) 4 % (20-45) L Monocytes % (Manual) 0 % (1-10) L Eosinophils % (Manual) 0 % (0-3) Basophils % (Manual) 0 % (0-2) Band Neutrophils 0 % (0-8) Platelet Estimate Decreased L Platelet Morphology Normal Hypochromasia 1+ Anisocytosis 1+ Total Bilirubin 1.0 MG/DL (0.2-1.0) Aspartate Amino Transf (AST/SGOT) 50 U/L (15-37) H Alanine Aminotransferase (ALT/SGPT) 63 U/L (12-78) Alkaline Phosphatase 192 U/L (46-116) H Total Protein 5.7 G/DL (6.4-8.2) L Albumin 1.5 G/DL (3.4-5.0) L Globulin 4.2 g/dL Albumin/Globulin Ratio 0.4 (1.0-2.7) L Random Vancomycin Level 14.9 ug/mL Test 11/19/20 07:56 11/19/20 09:48 Arterial Blood pH 7.244 (7.350-7.450) Arterial Blood Partial Pressure CO2 59.9 mmHg (35.0-45.0) *H Arterial Blood Partial Pressure O2 56.5 mmHg (75.0-100.0) L Arterial Blood HCO3 25.3 mmol/L (22.0-26.0) Arterial Blood Oxygen Saturation 84.7 % (95-100) *L Arterial Blood Base Excess -2.6 (-2-2) L Jonathan Test Positive POC Whole Blood Glucose 403 MG/DL (74-106) H Neurologic Exam Objective VITAL SIGNS: Reviewed GENERAL: For general physical examination, please refer to other physicians' examination for details. NEUROLOGIC: Mental status - the patient is sedated, although he does not follow commands. Cranial nerves II through XII are tested. Pupils are equal and reactive bilaterally. He does have extraocular movements, which are intact. There is no obvious facial asymmetry. He is currently intubated. Motor examination, the patient does have spontaneous movements of bilateral upper and lower extremities without any focal deficits. He does respond to painful stimulation bilaterally and withdraws both upper and lower extremities. Impression/Recommendations Status: stable Diagnostic Impression ASSESSMENT: 1. Acute metabolic encephalopathy, which appears to be improving. 2. Respiratory failure. 3. COVID-19 infection. 4. Diabetes mellitus. 5. Hypertension. 6. Hyperkalemia. 7. CKD. 8. Metabolic acidosis. Recommendations DISCUSSION AND PLAN: The patient presented with COVID-19 infection and has respiratory failure. His change in mental status was likely due to his multiple medical and electrolyte abnormalities. He appears to be somewhat responsive and according to medical record he is more responsive today than he was in the last couple of days. His examination does not reveal any focal abnormalities. I would like to obtain an imaging study of his brain when is more medically stable. He has not had any imaging study of his brain, so I will obtain a CT scan of the brain as when is possible, he is off any sedating medications. He was on propofol which could have contributed to his altered mental status. He is no longer on propofol on dopamine and levo now and is off restraints. I will continue to monitor his neurological status during this hospitalization and provide further recommendations as necessary. Thank you for allowing us to participate in the care of this patient. Tessie Greco NP Nov 19, 2020 13:20
--- NOTE | 2020-11-19 14:18 | Surgery Progress Note ---
Surgery Progress Note Subjective Procedure Performed Right femoral central venous catheter insertion Additional Comments wbc trending down tube in place ill appearing on support weaning pressors Objective Last 24 Hour Vital Signs Date Time Temp Pulse Resp B/P (MAP) Pulse Ox O2 Delivery O2 Flow Rate FiO2 11/19/20 12:58 128/19 11/19/20 12:20 94 31 100 11/19/20 12:00 97 29 132/32 (65) 90 11/19/20 12:00 100 11/19/20 12:00 90 11/19/20 11:30 97 28 133/25 (61) 90 11/19/20 11:10 86 27 100 11/19/20 11:00 87 25 125/33 (63) 92 11/19/20 10:30 92 26 125/20 (55) 93 11/19/20 10:00 90 28 126/17 (53) 94 11/19/20 09:30 90 28 121/20 (53) 94 11/19/20 09:00 91 29 127/19 (55) 94 11/19/20 08:30 89 26 128/22 (57) 93 11/19/20 08:00 100 11/19/20 08:00 98.3 88 29 123/25 (57) 93 11/19/20 08:00 Mechanical Ventilator 11/19/20 08:00 88 11/19/20 07:30 87 29 127/24 (58) 93 11/19/20 07:25 88 30 100 11/19/20 07:15 87 30 130/20 (56) 95 11/19/20 07:00 89 30 132/19 (56) 96 11/19/20 07:00 130/20 11/19/20 06:45 88 22 141/28 (65) 97 11/19/20 06:30 87 25 134/20 (58) 95 11/19/20 06:15 89 28 134/22 (59) 94 11/19/20 06:00 88 26 155/26 (69) 94 11/19/20 06:00 155/26 11/19/20 05:55 89 27 100 11/19/20 05:45 89 24 144/18 (60) 77 11/19/20 05:30 101 25 158/27 (70) 87 11/19/20 05:00 90/18 11/19/20 05:00 96 27 114/13 (46) 86 11/19/20 04:56 95/16 11/19/20 04:30 94 24 98/13 (41) 83 11/19/20 04:15 93 25 148/20 (62) 87 11/19/20 04:00 100 11/19/20 04:00 149/20 11/19/20 04:00 96 11/19/20 04:00 98.4 85 26 136/30 (65) 89 11/19/20 04:00 Mechanical Ventilator 11/19/20 03:15 83 26 140/32 (68) 88 11/19/20 03:00 140/30 11/19/20 03:00 84 23 146/24 (64) 89 11/19/20 02:48 84 26 100 11/19/20 02:45 81 25 145/22 (63) 89 11/19/20 02:30 77 26 139/29 (65) 89 11/19/20 02:15 77 27 134/20 (58) 87 11/19/20 02:00 132/19 11/19/20 02:00 77 27 131/29 (63) 89 11/19/20 01:30 78 27 132/19 (56) 90 11/19/20 01:00 117/32 11/19/20 01:00 87 27 118/30 (59) 90 11/19/20 00:45 107 26 105/18 (47) 87 11/19/20 00:30 110 23 145/25 (65) 88 11/19/20 00:15 112 28 148/26 (66) 86 11/19/20 00:10 111 25 145/29 (67) 85 11/19/20 00:00 98.0 108 26 154/27 (69) 86 11/19/20 00:00 100 11/19/20 00:00 Mechanical Ventilator 11/19/20 00:00 145/45 11/19/20 00:00 81 11/18/20 23:45 117 25 142/43 (76) 87 11/18/20 23:30 111 26 141/38 (72) 85 11/18/20 23:22 111 25 100 11/18/20 23:07 92/18 11/18/20 23:00 142/43 11/18/20 23:00 106 23 92/18 (42) 89 12/28/20 22:45 110 24 134/26 (62) 88 11/18/20 22:30 112 23 136/22 (60) 87 11/18/20 22:15 111 26 128/22 (57) 84 11/18/20 22:00 128/22 11/18/20 22:00 116 27 118/19 (52) 82 20 21:45 119 20 129/15 (53) 78 11/18/20 21:30 118 23 140/18 (58) 79 11/18/20 21:15 124 23 175/32 (79) 86 11/18/20 21:00 127 22 154/28 (70) 85 11/18/20 21:00 125/36 11/18/20 20:53 120 185/25 11/18/20 20:45 117 27 185/32 (82) 83 11/18/20 20:30 121 24 180/34 (82) 92 11/18/20 20:15 105 16 125/36 (65) 95 11/18/20 20:00 Mechanical Ventilator 11/18/20 20:00 107 11/18/20 20:00 80/20 11/18/20 20:00 102 16 134/26 (62) 94 11/18/20 20:00 100 11/18/20 19:47 120/28 11/18/20 19:45 106 14 120/28 (58) 92 11/18/20 19:30 106 23 100/15 (43) 89 11/18/20 19:30 87/50 11/18/20 19:15 111 24 83/21 (41) 85 11/18/20 19:05 112 26 100 11/18/20 19:00 103 33 83/32 (49) 81 11/18/20 18:30 117 34 95/11 (39) 97 11/18/20 18:00 118 36 100/38 (58) 95 11/18/20 17:00 112 37 106/12 (43) 97 11/18/20 16:30 116 36 102/17 (45) 93 11/18/20 16:00 100.0 113 35 114/32 (59) 93 11/18/20 16:00 100.0 11/18/20 16:00 118 11/18/20 16:00 Mechanical Ventilator 11/18/20 15:30 117 36 107/14 (45) 94 11/18/20 15:21 116 34 100 11/18/20 15:00 117 35 121/31 (61) 93 11/18/20 14:30 118 36 113/29 (57) 94 I&O Intake and Output 11/18/20 11/19/20 19:00 07:00 Intake Total 2623.98510 ml 2338.739 ml Output Total 1795 ml 1170 ml Balance 828.06239 ml 1168.739 ml Free Water 1200 ml 800 ml IV Total 538.65083 ml 823.739 ml Tube Feeding 845 ml 715 ml Other 40 ml Output Urine Total 1795 ml 1170 ml Dressing: saturated Cardiovascular: RSR Respiratory: decreased breath sounds Abdomen: soft, non-tender, present bowel sounds Extremities: no tenderness, no cyanosis Laboratory Tests Test 11/18/20 17:50 11/18/20 19:10 11/18/20 21:15 11/19/20 00:26 POC Whole Blood Glucose 303 MG/DL (74-106) H Pending 317 MG/DL (74-106) H Sodium Level 149 MMOL/L (136-145) H Potassium Level 5.8 MMOL/L (3.5-5.1) H Chloride Level 116 MMOL/L (98-107) H Carbon Dioxide Level 29 MMOL/L (21-32) Anion Gap 4 mmol/L (5-15) L Blood Urea Nitrogen 162 mg/dL (7-18) H Creatinine 2.7 MG/DL (0.55-1.30) H Estimat Glomerular Filtration Rate 22.6 mL/min (>60) Glucose Level 384 MG/DL (74-106) #H Calcium Level 7.9 MG/DL (8.5-10.1) L Test 11/19/20 04:50 11/19/20 05:52 11/19/20 07:56 11/19/20 09:48 White Blood Count 14.1 K/UL (4.8-10.8) H Red Blood Count 3.16 M/UL (4.70-6.10) L Hemoglobin 9.7 G/DL (14.2-18.0) L Hematocrit 31.1 % (42.0-52.0) L Mean Corpuscular Volume 99 FL (80-99) # Mean Corpuscular Hemoglobin 30.9 PG (27.0-31.0) Mean Corpuscular Hemoglobin Concent 31.3 G/DL (32.0-36.0) L Red Cell Distribution Width 15.9 % (11.6-14.8) H Platelet Count 114 K/UL (150-450) L Mean Platelet Volume 8.5 FL (6.5-10.1) Neutrophils (%) (Auto) % (45.0-75.0) Lymphocytes (%) (Auto) % (20.0-45.0) Monocytes (%) (Auto) % (1.0-10.0) Eosinophils (%) (Auto) % (0.0-3.0) Basophils (%) (Auto) % (0.0-2.0) Differential Total Cells Counted 100 Neutrophils % (Manual) 96 % (45-75) H Lymphocytes % (Manual) 4 % (20-45) L Monocytes % (Manual) 0 % (1-10) L Eosinophils % (Manual) 0 % (0-3) Basophils % (Manual) 0 % (0-2) Band Neutrophils 0 % (0-8) Platelet Estimate Decreased L Platelet Morphology Normal Hypochromasia 1+ Anisocytosis 1+ Sodium Level 151 MMOL/L (136-145) H Potassium Level 5.0 MMOL/L (3.5-5.1) Chloride Level 116 MMOL/L (98-107) H Carbon Dioxide Level 27 MMOL/L (21-32) Anion Gap 8 mmol/L (5-15) Blood Urea Nitrogen 148 mg/dL (7-18) H Creatinine 2.3 MG/DL (0.55-1.30) H Estimat Glomerular Filtration Rate 27.2 mL/min (>60) Glucose Level 375 MG/DL (74-106) H Calcium Level 7.6 MG/DL (8.5-10.1) L Total Bilirubin 1.0 MG/DL (0.2-1.0) Aspartate Amino Transf (AST/SGOT) 50 U/L (15-37) H Alanine Aminotransferase (ALT/SGPT) 63 U/L (12-78) Alkaline Phosphatase 192 U/L (46-116) H Total Protein 5.7 G/DL (6.4-8.2) L Albumin 1.5 G/DL (3.4-5.0) L Globulin 4.2 g/dL Albumin/Globulin Ratio 0.4 (1.0-2.7) L Random Vancomycin Level 14.9 ug/mL POC Whole Blood Glucose Pending 403 MG/DL (74-106) H Arterial Blood pH 7.244 (7.350-7.450) Arterial Blood Partial Pressure CO2 59.9 mmHg (35.0-45.0) *H Arterial Blood Partial Pressure O2 56.5 mmHg (75.0-100.0) L Arterial Blood HCO3 25.3 mmol/L (22.0-26.0) Arterial Blood Oxygen Saturation 84.7 % (95-100) *L Arterial Blood Base Excess -2.6 (-2-2) L Jonathan Test Positive Test 11/19/20 12:32 POC Whole Blood Glucose 443 MG/DL (74-106) H Plan Problems: (1) ARDS (adult respiratory distress syndrome) Assessment & Plan: 84-year-old male who pressor insufficiency ARDS Covid on vent ET tube in place chest x-ray reviewed central line in place on sedation. Continue daily weaning trials. NG tube okay for diet tube feeds continue. Microbiology reviewed labs reviewed. Trend labs. IV fluids. Will follow with recommendations thank you for let me participate patient's care cxr stable on abx covid + cont abx cont f wean as tolerated DAILY ESTIMATED NEEDS: Needs based on Critcal care 82.4kg abw 22-28 kcals/kg 8187-1048 total kcals 1.2-2 g protein/kg 99-165 g total protein 20-25/ or per MD mL/kg 3071-3072 total fluid mLs NUTRITION DIAGNOSIS: Swallowing difficulty r/t respiratory status as evidenced by 84 y/o M adm w/ covid++, now orally intubated, NPO. ENTERAL NUTRITION RECOMMENDATIONS: VITAL 1.2 GOAL OF 65ml/hr x24 hrs to provide 1560ml, 1872 kcal, 117g pro, 1265ml free H2O - When hemodynamically stable, rec to start non oral feeds to meet est kcal and pro needs. - Start Vital 1.2 @35ml/hr for 6 hrs, advance as tolerated 10ml/hr q4-6 hrs to goal. - Flush per . HOB over 30 degrees ADDITIONAL RECOMMENDATIONS: 1) Maintain calibrated bed scale wts 2) Followed by end, monitor for hypoglycemia while NPO 3) Feed when hemodynamically stable, TF recs as above for critical care, carb control, high pro content to meet est needs 4) Re-evaluate TF w/ change in propofol rate-> current rate w/ TF's do NOT exceed est needs. (2) Hypoxemia (3) Renal failure (4) Elevated troponin (5) COVID-19 Assessment & Plan: ++ on abx tx per Tommie Teague Nov 19, 2020 14:18
--- NOTE | 2020-11-19 15:05 | NUR ---
NURSE NOTES: Blood pressure is 122/26 with heart rate of 88 in sinus rhythm and Levophed titrated to 2mcg/min. remains on tube feeding at 65ml/hr with no residual noted, patient remains obtunded with .05/5 movement when patient is shaken or light pain stimulus at the nail bed. his gag reflex is hypoactive when suctioning and doesn't follow commands. neurology physician Dr. brantley is at the bedside, updated on the patient mental status, no verbal orders given at this time.
--- NOTE | 2020-11-19 18:35 | NUR ---
NURSE NOTES: Levophed held with bp at 120/25, patient remains on Levophed at 2mcg/kg/min. Awaiting for BMP to result to notify Dr. Hong
[2020-11-19 18:52] LABS: CALCIUM 7.7 MG/DL (8.5-10.1); CREATININE 2.3 MG/DL (0.55-1.30); POTASSIUM 4.7 MMOL/L (3.5-5.1)
--- NOTE | 2020-11-19 19:35 | NUR ---
NURSE HAND-OFF REPORT: Latest Vital Signs: Temperature 99.2 , Pulse 105 , B/P 133 /26 , Respiratory Rate 26 , O2 SAT 94 , Mechanical Ventilator, O2 Flow Rate . Vital Sign Comment: EKG Rhythm: Sinus Rhythm Rhythm change?: N Notified?: Marty Jerez MD Response: Order Received& Read Back Latest Blackwell Fall Score: 50 Fall Risk: High Risk Safety Measures: Call light Within Reach, Bed Alarm Zone 1, Side Rails Side Rails x3, Bed position Low and Locked. Fall Precautions: Yellow Socks Yellow Gown Door Sign Patient Fall Education Report given to LYNDA Ledezma.
[2020-11-19] MEDS: Dyna-Hex 2% Top Sol 2oz TOPIC SCH (20:00)
--- NOTE | 2020-11-19 20:00 | NUR ---
NURSE NOTES: Patients received from Rayo HOWELL. Patient is orally intubated ETT 7.5, 28cm at lower lip. AC 14, 450tv, 100% FiO2 and peep of 5. Patient does not respond to painful stimuli, does not open eyes spontaneously, hypoactive gag reflexes, patients saturating 87-92%, already on 100% FiO2. Patient has OGT and receiving Vital at 65ml/hr. Douglas catheter noted. JANIA PICC line noted patent and intact. Dopamine and NS TKO infusing. Pulses present. Safety measures conducted, will continue to monitor.
[2020-11-19] MEDS: Miralax 17gm pkt GT SCH (20:49)
[2020-11-19] MEDS: Enoxaparin 40mg Inj SUBQ SCH (20:50)
--- NOTE | 2020-11-19 21:00 | NUR ---
NURSE NOTES: Glucose noted to be 397, scheduled Levemir given 400ml Water flushed given per as orders Oral care and suctioned patient Patient saturations in the 80s Repositioned patient, skin precautions observed.
--- NOTE | 2020-11-19 22:00 | NUR ---
NURSE NOTES: SpO2 right now 89%-FiO2 already at 100%. Patients neuro status remains the same, hypoactive gag reflexes, no response to painful stimuli. Remains on dopamine gtt at 2mcg/kg/min.
[2020-11-20] VITALS (41 sets, daily range): BP systolic 65–145; BP diastolic 25–48
--- NOTE | 2020-11-20 | NUR ---
NURSE NOTES: Patient desaturating in the 80s. Called and informed Dr. Gaspar regarding decreased SpO2. Per MD, monitor patient for now. Patient already at 100% FiO2. Will continue to monitor.
--- NOTE | 2020-11-20 02:00 | NUR ---
NURSE NOTES: Patient repositioned and oral care performed, patient still saturating in the 80s. Attempted to turn off pressors but patients blood pressure would bottom out into the 70s SBP. Patient seems sensitive to decreasing pressors. Will attempt to taper cautiously as much as BP would allow.
--- NOTE | 2020-11-20 04:00 | NUR ---
NURSE NOTES: Sponge bath given and blood drawn. Patient seems unable to tolerate supine position for very long patients saturations would bottom down into the 40s and slowly go back up in to the 80s. Patients was given oral care. Will continue to monitor
--- NOTE | 2020-11-20 06:00 | NUR ---
NURSE NOTES: Glucose 363 insulin coverage given, morning meds given. Patient saturating in the 80s, MD made aware. Patient suctioned and repositioned, skin precautions observed.
[2020-11-20] MEDS: Piperacillin/Tazobactam 3.375 GM in NS 110 ML IVPB SCH ×3 (06:02→19:47)
[2020-11-20] MEDS: Metoclopramide 10mg/2ml Inj IVP SCH ×3 (06:02→17:23)
[2020-11-20] MEDS: NovoLOG Insulin Flexpen SUBQ SCH ×3 (06:03→17:32)
[2020-11-20 06:12] LABS: HEMATOCRIT 28.1 % (42.0-52.0); HEMOGLOBIN 8.9 G/DL (14.2-18.0); MEAN CORPUSCULAR VOLUME 97 FL (80-99); PLATELET COUNT 114 K/UL (150-450); RED BLOOD COUNT 2.91 M/UL (4.70-6.10); RED CELL DISTRIBUTION WIDTH 15.3 % (11.6-14.8); WHITE BLOOD COUNT 15.8 K/UL (4.8-10.8)
[2020-11-20 06:36] LABS: ALBUMIN 1.8 G/DL (3.4-5.0); ALBUMIN/GLOBULIN RATIO 0.5 (1.0-2.7); BILIRUBIN,TOTAL 0.6 MG/DL (0.2-1.0); CALCIUM 7.6 MG/DL (8.5-10.1); CREATININE 2.3 MG/DL (0.55-1.30); PHOSPHORUS 5.3 MG/DL (2.5-4.9); POTASSIUM 4.7 MMOL/L (3.5-5.1)
--- NOTE | 2020-11-20 07:26 | NUR ---
HAND-OFF: Report given to Evangelina HOWELL.
--- NOTE | 2020-11-20 07:27 | NUR ---
NURSE NOTES: Pt received from LYNDA Ledezma. Pt grimaces to light pain stimuli; however, does not open eyes or follow commands; gag reflex remains intact; bilat pupils equal and round 3mm with sluggish rxn to light. Pt is ST to histology tech with 2+ radial and dorsalis pedis pulses. 2+ pitting edema noted to hands. Afebrile. cap refill less than 2 sec. Pt is orally intubated with a 7.5 ETT noted 28 cm at the lip with the following: AC 16 TV 450 FiO2 100 % Peep 5. lung rueda noted diminished upon auscultation. OGT noted running Vital 1.2 at 65 cc/hr. Abdomen is round and soft w/ active bowel sounds to all quadrants. F/C noted draining yellow, clear urine. Skin is intact. Pt has a JANIA PICC with dry and intact dressing running zosyn at 25.5 cc/hr. dopamine on stand-by. Bed in lowest position, alarm on, side rails up x 3, call light within reach. Will continue to monitor.
--- NOTE | 2020-11-20 07:56 | General Progress Note ---
Subjective ROS Limited/Unobtainable: No Allergies: Coded Allergies: No Known Allergies (Unverified , 11/06/20) Objective Last 24 Hour Vital Signs Date Time Temp Pulse Resp B/P (MAP) Pulse Ox O2 Delivery O2 Flow Rate FiO2 11/20/20 07:00 104 34 100 11/20/20 07:00 103 34 111/36 (61) 90 11/20/20 06:30 104 34 117/37 (63) 87 11/20/20 06:00 98.2 103 32 116/35 (62) 83 11/20/20 05:30 100 30 121/38 (65) 85 11/20/20 05:00 95 29 115/41 (65) 90 11/20/20 04:30 92 24 118/43 (68) 93 11/20/20 04:00 99.0 92 24 110/35 (60) 91 11/20/20 04:00 100 11/20/20 04:00 118/43 11/20/20 04:00 92 11/20/20 04:00 Mechanical Ventilator 11/20/20 03:30 98 34 97/29 (51) 82 11/20/20 03:27 87 27 100 11/20/20 03:00 104 31 131/44 (73) 87 11/20/20 03:00 125/33 11/20/20 02:30 105 30 134/44 (74) 86 11/20/20 02:00 106 29 136/42 (73) 86 11/20/20 02:00 102/21 11/20/20 01:30 108 29 140/47 (78) 87 11/20/20 01:00 108 28 144/47 (79) 85 11/20/20 01:00 111/23 11/20/20 00:30 107 28 145/48 (80) 83 11/20/20 00:00 106/22 11/20/20 00:00 Mechanical Ventilator 11/20/20 00:00 98.2 103 26 139/45 (76) 81 11/20/20 00:00 100 11/19/20 23:30 100 26 126/36 (66) 87 11/19/20 23:00 100 26 128/39 (68) 86 11/19/20 23:00 125/40 11/19/20 22:30 98 27 130/39 (69) 85 11/19/20 22:06 94 24 100 11/19/20 22:00 95 23 121/38 (65) 86 11/19/20 22:00 102/19 11/19/20 21:30 99 27 119/39 (65) 87 11/19/20 21:00 96 25 138/37 (70) 82 11/19/20 21:00 115/29 11/19/20 20:30 98 26 119/25 (56) 95 11/19/20 20:00 100 11/19/20 20:00 100 11/19/20 20:00 133/26 11/19/20 20:00 Mechanical Ventilator 11/19/20 20:00 99.4 102 27 119/22 (54) 95 11/19/20 19:30 105 27 123/25 (57) 92 11/19/20 19:28 105 26 100 11/19/20 19:00 100 27 133/26 (61) 94 11/19/20 19:00 133/26 11/19/20 18:30 100 25 120/25 (56) 96 11/19/20 18:00 136/29 11/19/20 18:00 98 25 136/29 (64) 96 11/19/20 17:30 90 28 135/27 (63) 94 11/19/20 17:25 88 26 100 11/19/20 17:00 85 28 117/18 (51) 92 11/19/20 17:00 117/18 11/19/20 16:22 Mechanical Ventilator 11/19/20 16:00 99.2 90 27 133/20 (57) 92 11/19/20 16:00 88 11/19/20 16:00 133/20 11/19/20 16:00 100 11/19/20 15:30 83 26 133/20 (57) 93 11/19/20 15:10 75 25 100 11/19/20 15:00 122/26 11/19/20 15:00 88 26 122/26 (58) 93 11/19/20 14:30 87 29 118/39 (65) 94 11/19/20 14:00 86 28 112/19 (50) 93 11/19/20 14:00 112/19 11/19/20 13:30 92 30 118/19 (52) 92 11/19/20 13:00 123/19 11/19/20 13:00 90 26 123/19 (53) 90 11/19/20 12:58 128/19 11/19/20 12:30 98.5 92 29 120/26 (57) 92 11/19/20 12:20 94 31 100 11/19/20 12:00 97 29 132/32 (65) 90 11/19/20 12:00 100 11/19/20 12:00 90 11/19/20 12:00 Mechanical Ventilator 11/19/20 12:00 132/32 11/19/20 11:30 97 28 133/25 (61) 90 11/19/20 11:10 86 27 100 11/19/20 11:00 132/33 11/19/20 11:00 87 25 125/33 (63) 92 11/19/20 10:30 92 26 125/20 (55) 93 11/19/20 10:00 126/20 11/19/20 10:00 90 28 126/17 (53) 94 11/19/20 09:30 90 28 121/20 (53) 94 11/19/20 09:00 127/19 11/19/20 09:00 91 29 127/19 (55) 94 11/19/20 08:30 89 26 128/22 (57) 93 11/19/20 08:00 100 11/19/20 08:00 123/25 11/19/20 08:00 98.3 88 29 123/25 (57) 93 11/19/20 08:00 Mechanical Ventilator 11/19/20 08:00 88 Intake and Output 11/19/20 11/20/20 19:00 07:00 Intake Total 2447.00895 ml 2132.198 ml Output Total 1675 ml 895 ml Balance 772.85218 ml 1237.198 ml Free Water 800 ml 1200 ml IV Total 807.21612 ml 152.198 ml Tube Feeding 780 ml 780 ml Other 60 ml Output Urine Total 1675 ml 895 ml Laboratory Tests 11/19/20 07:56: Arterial Blood pH 7.244*L, Arterial Blood Partial Pressure CO2 59.9*H, Arterial Blood Partial Pressure O2 56.5L, Arterial Blood HCO3 25.3, Arterial Blood Oxygen Saturation 84.7*L, Arterial Blood Base Excess -2.6L, Jonathan Test Positive 11/19/20 09:48: POC Whole Blood Glucose 403H 11/19/20 12:32: POC Whole Blood Glucose 443H 11/19/20 18:30: Sodium Level 153H, Potassium Level 4.7, Chloride Level 118H, Carbon Dioxide Level 29, Anion Gap 6, Blood Urea Nitrogen 148H, Creatinine 2.3H, Estimat Glomerular Filtration Rate 27.2, Glucose Level 477#H, Calcium Level 7.7L 11/19/20 20:49: POC Whole Blood Glucose [Pending] 11/19/20 23:39: POC Whole Blood Glucose [Pending] 11/20/20 04:30: White Blood Count 15.8H, Red Blood Count 2.91L, Hemoglobin 8.9L, Hematocrit 28.1L, Mean Corpuscular Volume 97, Mean Corpuscular Hemoglobin 30.6, Mean Corpuscular Hemoglobin Concent 31.7L, Red Cell Distribution Width 15.3H, Franklin telet Count 114L, Mean Platelet Volume 9.4, Neutrophils (%) (Auto) , Lymphocytes (%) (Auto) , Monocytes (%) (Auto) , Eosinophils (%) (Auto) , Basophils (%) (Auto) , Neutrophils % (Manual) [Pending], Lymphocytes % (Manual) [Pending], Platelet Estimate [Pending], Platelet Morphology [Pending], Sodium Level 153H, Potassium Level 4.7, Chloride Level 117H, Carbon Dioxide Level 32, Anion Gap 4L, Blood Urea Nitrogen 148H, Creatinine 2.3H, Estimat Glomerular Filtration Rate 27.2, Glucose Level 401H, Calcium Level 7.6L, Phosphorus Level 5.3H, Magnesium Level 2.4, Total Bilirubin 0.6, Aspartate Amino Transf (AST/SGOT) 36, Alanine Aminotransferase (ALT/SGPT) 58, Alkaline Phosphatase 168H, Total Protein 5.5L, Albumin 1.8L, Globulin 3.7, Albumin/Globulin Ratio 0.5L Height (Feet): 6 Height (Inches): 1.00 Weight (Pounds): 190 General Appearance: no apparent distress EENT: normal ENT inspection Neck: supple Cardiovascular: normal rate Respiratory/Chest: decreased breath sounds Abdomen: non tender, hypoactive bowel sounds Extremities: non-tender Assessment/Plan Problem List: (1) COVID-19 ICD Codes: U07.1 - COVID-19 SNOMED: 388142827 (2) Elevated troponin ICD Codes: R77.8 - Other specified abnormalities of plasma proteins SNOMED: 995125353, 789279075, 211909107 (3) Renal failure ICD Codes: N19 - Unspecified kidney failure SNOMED: 20072320, 08269666 (4) Hypoxemia ICD Codes: R09.02 - Hypoxemia SNOMED: 518515411, 23594935 (5) ARDS (adult respiratory distress syndrome) ICD Codes: J80 - Acute respiratory distress syndrome SNOMED: 96776822, 04345891 Status: stable Assessment/Plan: GTF running reglan fu labs icu care covid isolation poor prognosis on pressor drop in H&H without active bleed Benoit Saavedra MD Nov 20, 2020 07:56
--- NOTE | 2020-11-20 08:45 | NUR ---
NURSE NOTES: Message left for Dr Gaspar with recent ABG results. Awaiting call back.
[2020-11-20] MEDS: Docusate 100mg/10ml Liq GT SCH ×2 (09:05→19:46)
[2020-11-20] MEDS: Pantoprazole Inj IVP SCH (09:05)
[2020-11-20] MEDS: Solu-MEDROL 40mg Inj IVP SCH ×2 (09:05→19:46)
[2020-11-20] MEDS: Levemir Flexpen SUBQ SCH ×2 (09:07→20:12)
--- NOTE | 2020-11-20 10:00 | NUR ---
NURSE NOTES: Pt repositioned. Dr Gaspar at bedside assessing pt - states he will place order for new vent settings and ABG redraw per this morning's ABG results.
--- NOTE | 2020-11-20 10:35 | Pulmonology Progress Note ---
Subjective ROS Limited/Unobtainable: No Interval Events: Doing poorly Constitutional: Reports: no symptoms HEENT: Repors: no symptoms Respiratory: Reports: no symptoms Cardiovascular: Reports: no symptoms Gastrointestinal/Abdominal: Reports: no symptoms Genitourinary: Reports: no symptoms Allergies: Coded Allergies: No Known Allergies (Unverified , 11/06/20) Objective Last 24 Hour Vital Signs Date Time Temp Pulse Resp B/P (MAP) Pulse Ox O2 Delivery O2 Flow Rate FiO2 11/20/20 10:00 107 35 98/36 (56) 90 11/20/20 09:00 102 36 102/34 (56) 88 11/20/20 08:00 98.7 104 36 108/37 (60) 89 11/20/20 08:00 104 11/20/20 08:00 100 11/20/20 07:00 104 34 100 11/20/20 07:00 103 34 111/36 (61) 90 11/20/20 06:30 104 34 117/37 (63) 87 11/20/20 06:00 98.2 103 32 116/35 (62) 83 11/20/20 05:30 100 30 121/38 (65) 85 11/20/20 05:00 95 29 115/41 (65) 90 11/20/20 04:30 92 24 118/43 (68) 93 11/20/20 04:00 99.0 92 24 110/35 (60) 91 11/20/20 04:00 100 11/20/20 04:00 118/43 11/20/20 04:00 92 11/20/20 04:00 Mechanical Ventilator 11/20/20 03:30 98 34 97/29 (51) 82 11/20/20 03:27 87 27 100 11/20/20 03:00 104 31 131/44 (73) 87 11/20/20 03:00 125/33 11/20/20 02:30 105 30 134/44 (74) 86 11/20/20 02:00 106 29 136/42 (73) 86 11/20/20 02:00 102/21 11/20/20 01:30 108 29 140/47 (78) 87 11/20/20 01:00 108 28 144/47 (79) 85 11/20/20 01:00 111/23 11/20/20 00:30 107 28 145/48 (80) 83 11/20/20 00:00 106/22 11/20/20 00:00 Mechanical Ventilator 11/20/20 00:00 98.2 103 26 139/45 (76) 81 11/20/20 00:00 100 11/19/20 23:30 100 26 126/36 (66) 87 11/19/20 23:00 100 26 128/39 (68) 86 11/19/20 23:00 125/40 11/19/20 22:30 98 27 130/39 (69) 85 11/19/20 22:06 94 24 100 11/19/20 22:00 95 23 121/38 (65) 86 11/19/20 22:00 102/19 11/19/20 21:30 99 27 119/39 (65) 87 11/19/20 21:00 96 25 138/37 (70) 82 11/19/20 21:00 115/29 11/19/20 20:30 98 26 119/25 (56) 95 11/19/20 20:00 100 11/19/20 20:00 100 11/19/20 20:00 133/26 11/19/20 20:00 Mechanical Ventilator 11/19/20 20:00 99.4 102 27 119/22 (54) 95 11/19/20 19:30 105 27 123/25 (57) 92 11/19/20 19:28 105 26 100 11/19/20 19:00 100 27 133/26 (61) 94 11/19/20 19:00 133/26 11/19/20 18:30 100 25 120/25 (56) 96 11/19/20 18:00 136/29 11/19/20 18:00 98 25 136/29 (64) 96 11/19/20 17:30 90 28 135/27 (63) 94 11/19/20 17:25 88 26 100 11/19/20 17:00 85 28 117/18 (51) 92 11/19/20 17:00 117/18 11/19/20 16:22 Mechanical Ventilator 11/19/20 16:00 99.2 90 27 133/20 (57) 92 11/19/20 16:00 88 11/19/20 16:00 133/20 11/19/20 16:00 100 11/19/20 15:30 83 26 133/20 (57) 93 11/19/20 15:10 75 25 100 11/19/20 15:00 122/26 11/19/20 15:00 88 26 122/26 (58) 93 11/19/20 14:30 87 29 118/39 (65) 94 11/19/20 14:00 86 28 112/19 (50) 93 11/19/20 14:00 112/19 11/19/20 13:30 92 30 118/19 (52) 92 11/19/20 13:00 123/19 11/19/20 13:00 90 26 123/19 (53) 90 11/19/20 12:58 128/19 11/19/20 12:30 98.5 92 29 120/26 (57) 92 11/19/20 12:20 94 31 100 11/19/20 12:00 97 29 132/32 (65) 90 11/19/20 12:00 100 11/19/20 12:00 90 11/19/20 12:00 Mechanical Ventilator 11/19/20 12:00 132/32 11/19/20 11:30 97 28 133/25 (61) 90 11/19/20 11:10 86 27 100 11/19/20 11:00 132/33 11/19/20 11:00 87 25 125/33 (63) 92 Intake and Output 11/19/20 11/20/20 19:00 07:00 Intake Total 2447.20431 ml 2159.698 ml Output Total 1675 ml 895 ml Balance 772.27519 ml 1264.698 ml Free Water 800 ml 1200 ml IV Total 807.64392 ml 179.698 ml Tube Feeding 780 ml 780 ml Other 60 ml Output Urine Total 1675 ml 895 ml General Appearance: no acute distress HEENT: normocephalic Respiratory: chest wall non-tender, lungs clear Cardiovascular: normal peripheral pulses, normal rate Abdomen: normal bowel sounds Microbiology Date/Time Source Procedure Growth Status 11/19/20 14:00 Sputum Gram Stain Pending Resulted 11/19/20 14:00 Sputum Culture - Preliminary Gram Negative Bacillus 1 Resulted 11/17/20 12:30 Blood Blood Culture - Preliminary NO GROWTH AFTER 48 HOURS Resulted 11/17/20 12:25 Indwelling Cath Urine Culture - Final NO GROWTH AFTER 48 HOURS Complete 11/17/20 12:15 Blood Blood Culture - Preliminary NO GROWTH AFTER 48 HOURS Resulted Laboratory Tests 11/19/20 12:32: POC Whole Blood Glucose 443H 11/19/20 18:30: Sodium Level 153H, Potassium Level 4.7, Chloride Level 118H, Carbon Dioxide Level 29, Anion Gap 6, Blood Urea Nitrogen 148H, Creatinine 2.3H, Estimat Glomerular Filtration Rate 27.2, Glucose Level 477#H, Calcium Level 7.7L 11/19/20 20:49: POC Whole Blood Glucose [Pending] 11/19/20 23:39: POC Whole Blood Glucose [Pending] 11/20/20 04:30: White Blood Count 15.8H, Red Blood Count 2.91L, Hemoglobin 8.9L, Hematocrit 28.1L, Mean Corpuscular Volume 97, Mean Corpuscular Hemoglobin 30.6, Mean Corpuscular Hemoglobin Concent 31.7L, Red Cell Distribution Width 15.3H, Platelet Count 114L, Mean Platelet Volume 9.4, Neutrophils (%) (Auto) , Lymphocytes (%) (Auto) , Monocytes (%) (Auto) , Eosinophils (%) (Auto) , Basophils (%) (Auto) , Differential Total Cells Counted 100, Neutrophils % (Manual) 95H, Lymphocytes % (Manual) 3L, Monocytes % (Manual) 2, Eosinophils % (Manual) 0, Basophils % (Manual) 0, Band Neutrophils 0, Platelet Estimate DecreasedL, Platelet Morphology Normal, Hypochromasia 1+, Anisocytosis 1+, Sodium Level 153H, Potassium Level 4.7, Chloride Level 117H, Carbon Dioxide Level 32, Anion Gap 4L, Blood Urea Nitrogen 148H, Creatinine 2.3H, Estimat Glomerular Filtration Rate 27.2, Glucose Level 401H, Calcium Level 7.6L, Phosphorus Level 5.3H, Magnesium Level 2.4, Total Bilirubin 0.6, Aspartate Amino Transf (AST/SGOT) 36, Alanine Aminotransferase (ALT/SGPT) 58, Alkaline Phosphatase 168H, Total Protein 5.5L, Albumin 1.8L, Globulin 3.7, Albumin/Globulin Ratio 0.5L 11/20/20 08:00: Arterial Blood pH 7.167*L, Arterial Blood Partial Pressure CO2 82.2*H, Arterial Blood Partial Pressure O2 50.7L, Arterial Blood HCO3 29.1H, Arterial Blood Oxygen Saturation 79.7*L, Arterial Blood Base Excess -0.6, Jonathan Test Positive Current Medications Medications (Trade) Dose Ordered Sig/Violet Route PRN Reason Start Time Stop Time Status Last Admin Dose Admin Acetaminophen (Tylenol) 650 mg Q4H PRN GT Temp >100.5 11/12/20 11:00 12/12/20 10:44 11/18/20 14:55 Chlorhexidine Gluconate (Patt-Hex 2%) 1 applic DAILY@2000 TOPIC 11/17/20 20:00 02/15/21 19:59 11/19/20 20:00 Dextrose 1,000 ml @ 0 mls/hr Q0M IV 11/17/20 10:30 12/17/20 10:29 Dextrose (Dextrose 50%) 25 ml Q30M PRN IV Hypoglycemia 11/06/20 20:00 02/04/21 19:59 Dextrose (Dextrose 50%) 50 ml Q30M PRN IV Hypoglycemia 11/06/20 20:00 02/04/21 19:59 Docusate Sodium (Colace) 100 mg EVERY 12 HOURS GT 11/17/20 21:00 12/14/20 17:59 11/20/20 09:05 Dopamine HCl/ Dextrose 250 ml @ 0 mls/hr Q24H IV 11/19/20 19:45 11/22/20 19:35 11/19/20 20:00 Enoxaparin Sodium (Lovenox) 30 mg Q24H SUBQ 11/20/20 21:00 02/05/21 20:59 Flumazenil (Romazicon) 0.2 mg NEEDED PRN IV Sedation reversal 11/06/20 20:00 Insulin Aspart (NovoLOG) EVERY 6 HOURS SUBQ 11/08/20 12:00 02/05/21 16:29 11/20/20 06:03 Insulin Detemir (Levemir) 20 units EVERY 12 HOURS SUBQ 11/19/20 21:00 02/05/21 20:59 11/20/20 09:07 Methylprednisolone Sodium Succinate (Solu-MEDROL) 40 mg EVERY 12 HOURS IVP 11/18/20 12:30 02/16/21 12:29 11/20/20 09:05 Metoclopramide HCl (Reglan) 5 mg Q6HR IVP 11/14/20 12:26 12/14/20 12:25 11/20/20 06:02 Naloxone HCl (Narcan) 0.4 mg NEEDED PRN IVP RR less than 6/min 11/06/20 20:00 02/04/21 19:59 Norepinephrine Bitartrate 250 ml @ 0 mls/hr Q24H IV 11/18/20 19:30 11/21/20 19:28 11/19/20 04:56 Ondansetron HCl (Zofran) 4 mg Q6H PRN IVP Nausea & Vomiting 11/06/20 20:00 12/06/20 19:59 Pantoprazole (Protonix) 40 mg DAILY IVP 11/08/20 09:00 12/08/20 08:59 11/20/20 09:05 Piperacillin Sod/ Tazobactam Sod 3.375 gm/Sodium Chloride 110 ml @ 27.5 mls/hr Q8HR IVPB 11/17/20 22:00 11/24/20 21:59 11/20/20 06:02 Polyethylene Glycol (Miralax) 17 gm BEDTIME GT 11/14/20 21:00 12/14/20 20:59 11/19/20 20:49 Vancomycin HCl (Vanco pharmacy to dose) 1 ea DAILY PRN MISC Per rx protocol 11/17/20 11:30 12/17/20 11:29 Assessment/Plan Assessment/Plan IMPRESSION: 1. COVID-19 pneumonia. 2. Diabetes mellitus. 3. Hypertension. 4. Hyperkalemia. 5. CKD. 6. Metabolic acidosis. 7. Respiratory Failure; Acute Lung Injury 9. AMS; very poorly responsive DISCUSSION: Continue broad-spectrum antibiotics. Continue vent/AC mode Currently FiO2 100%; Will increase rate and volumes given resp acidosis PEEP decreased to 8 Endo tracheal tube adjusted; pt holding volumes on vent now Had to be repositioned CXR shows fine appearing interstitial infiltrates Suspect either secondary infection or fluid Will add Micafungin and Vanco Start Diuresis Start D5W given hypernatremia Blood sugar control, Continue Decadron. Off propofol Check labs and ABG AM CXR unchanged Noted neurology evaluation Jud Werner Omar Syed MD Nov 20, 2020 10:35
--- NOTE | 2020-11-20 10:50 | Nephrology Progress Note ---
Assessment/Plan Plan #SAMEER on CKD- likely pre-renal azotemia in the setting of sepsis- now progressing to ATN - concerns for #hypnatremia # acute hypoxemia Resp failure 2/2 covid PNA requiring BIPAP # Covid PNA # Lactic acid elevation # Malnutrition #HTN, current normotensive # elevated D dimer # Trop elevated # DM2 uncontrolled - patient encephalopathic- concerns or uremia given uptrending BUN - plan for maharkur placement and trial of HD if BP tolerates - lasix 80 IV - albumin 25mg x1 - continue pressors to maintain MAP > 65 - continue free water flushes [id number] - DC bicarb drip - intubated - monitor volume status - monitor ABG - monitor BMP, mag and phos daily - strict I&Os - daily weights - echo - defer renal US - antibiotic per ID time spent 65min Subjective ROS Limited/Unobtainable: Yes Subjective intubated Cr fluctuating sodium remains elevated BUN uptrending volume overloaded on pressors - on levo and dopa patient encephalopathic plan for maharkur placement and trial of HD today Objective Objective Last 24 Hour Vital Signs Date Time Temp Pulse Resp B/P (MAP) Pulse Ox O2 Delivery O2 Flow Rate FiO2 11/20/20 10:44 100 11/20/20 10:00 107 35 98/36 (56) 90 11/20/20 09:00 102 36 102/34 (56) 88 11/20/20 08:00 98.7 104 36 108/37 (60) 89 11/20/20 08:00 104 11/20/20 08:00 Mechanical Ventilator 11/20/20 08:00 100 11/20/20 07:00 104 34 100 11/20/20 07:00 103 34 111/36 (61) 90 11/20/20 06:30 104 34 117/37 (63) 87 11/20/20 06:00 98.2 103 32 116/35 (62) 83 11/20/20 05:30 100 30 121/38 (65) 85 11/20/20 05:00 95 29 115/41 (65) 90 11/20/20 04:30 92 24 118/43 (68) 93 11/20/20 04:00 99.0 92 24 110/35 (60) 91 11/20/20 04:00 100 11/20/20 04:00 118/43 11/20/20 04:00 92 11/20/20 04:00 Mechanical Ventilator 11/20/20 03:30 98 34 97/29 (51) 82 11/20/20 03:27 87 27 100 11/20/20 03:00 104 31 131/44 (73) 87 11/20/20 03:00 125/33 11/20/20 02:30 105 30 134/44 (74) 86 11/20/20 02:00 106 29 136/42 (73) 86 11/20/20 02:00 102/21 11/20/20 01:30 108 29 140/47 (78) 87 11/20/20 01:00 108 28 144/47 (79) 85 11/20/20 01:00 111/23 11/20/20 00:30 107 28 145/48 (80) 83 11/20/20 00:00 106/22 11/20/20 00:00 Mechanical Ventilator 11/20/20 00:00 98.2 103 26 139/45 (76) 81 11/20/20 00:00 100 11/19/20 23:30 100 26 126/36 (66) 87 11/19/20 23:00 100 26 128/39 (68) 86 11/19/20 23:00 125/40 11/19/20 22:30 98 27 130/39 (69) 85 11/19/20 22:06 94 24 100 11/19/20 22:00 95 23 121/38 (65) 86 11/19/20 22:00 102/19 11/19/20 21:30 99 27 119/39 (65) 87 11/19/20 21:00 96 25 138/37 (70) 82 11/19/20 21:00 115/29 11/19/20 20:30 98 26 119/25 (56) 95 11/19/20 20:00 100 11/19/20 20:00 100 11/19/20 20:00 133/26 11/19/20 20:00 Mechanical Ventilator 11/19/20 20:00 99.4 102 27 119/22 (54) 95 11/19/20 19:30 105 27 123/25 (57) 92 11/19/20 19:28 105 26 100 11/19/20 19:00 100 27 133/26 (61) 94 11/19/20 19:00 133/26 11/19/20 18:30 100 25 120/25 (56) 96 11/19/20 18:00 136/29 11/19/20 18:00 98 25 136/29 (64) 96 11/19/20 17:30 90 28 135/27 (63) 94 11/19/20 17:25 88 26 100 11/19/20 17:00 85 28 117/18 (51) 92 11/19/20 17:00 117/18 11/19/20 16:22 Mechanical Ventilator 11/19/20 16:00 99.2 90 27 133/20 (57) 92 11/19/20 16:00 88 11/19/20 16:00 133/20 11/19/20 16:00 100 11/19/20 15:30 83 26 133/20 (57) 93 11/19/20 15:10 75 25 100 11/19/20 15:00 122/26 11/19/20 15:00 88 26 122/26 (58) 93 11/19/20 14:30 87 29 118/39 (65) 94 11/19/20 14:00 86 28 112/19 (50) 93 11/19/20 14:00 112/19 11/19/20 13:30 92 30 118/19 (52) 92 11/19/20 13:00 123/19 11/19/20 13:00 90 26 123/19 (53) 90 11/19/20 12:58 128/19 11/19/20 12:30 98.5 92 29 120/26 (57) 92 11/19/20 12:20 94 31 100 11/19/20 12:00 97 29 132/32 (65) 90 11/19/20 12:00 100 11/19/20 12:00 90 11/19/20 12:00 Mechanical Ventilator 11/19/20 12:00 132/32 11/19/20 11:30 97 28 133/25 (61) 90 11/19/20 11:10 86 27 100 11/19/20 11:00 132/33 11/19/20 11:00 87 25 125/33 (63) 92 Intake and Output 11/19/20 11/20/20 19:00 07:00 Intake Total 2447.57609 ml 2159.698 ml Output Total 1675 ml 895 ml Balance 772.10262 ml 1264.698 ml Free Water 800 ml 1200 ml IV Total 807.80108 ml 179.698 ml Tube Feeding 780 ml 780 ml Other 60 ml Output Urine Total 1675 ml 895 ml Laboratory Tests 11/19/20 12:32: POC Whole Blood Glucose 443H 11/19/20 18:30: Sodium Level 153H, Potassium Level 4.7, Chloride Level 118H, Carbon Dioxide Level 29, Anion Gap 6, Blood Urea Nitrogen 148H, Creatinine 2.3H, Estimat Glomerular Filtration Rate 27.2, Glucose Level 477#H, Calcium Level 7.7L 11/19/20 20:49: POC Whole Blood Glucose [Pending] 11/19/20 23:39: POC Whole Blood Glucose [Pending] 11/20/20 04:30: White Blood Count 15.8H, Red Blood Count 2.91L, Hemoglobin 8.9L, Hematocrit 28.1L, Mean Corpuscular Volume 97, Mean Corpuscular Hemoglobin 30.6, Mean Corpuscular Hemoglobin Concent 31.7L, Red Cell Distribution Width 15.3H, Platelet Count 114L, Mean Platelet Volume 9.4, Neutrophils (%) (Auto) , Lymphocytes (%) (Auto) , Monocytes (%) (Auto) , Eosinophils (%) (Auto) , Basophils (%) (Auto) , Differential Total Cells Counted 100, Neutrophils % (Manual) 95H, Lymphocytes % (Manual) 3L, Monocytes % (Manual) 2, Eosinophils % (Manual) 0, Basophils % (Manual) 0, Band Neutrophils 0, Platelet Estimate DecreasedL, Platelet Morphology Normal, Hypochromasia 1+, Anisocytosis 1+, Sod ium Level 153H, Potassium Level 4.7, Chloride Level 117H, Carbon Dioxide Level 32, Anion Gap 4L, Blood Urea Nitrogen 148H, Creatinine 2.3H, Estimat Glomerular Filtration Rate 27.2, Glucose Level 401H, Calcium Level 7.6L, Phosphorus Level 5.3H, Magnesium Level 2.4, Total Bilirubin 0.6, Aspartate Amino Transf (AST/SGOT) 36, Alanine Aminotransferase (ALT/SGPT) 58, Alkaline Phosphatase 168H , Total Protein 5.5L, Albumin 1.8L, Globulin 3.7, Albumin/Globulin Ratio 0.5L 11/20/20 08:00: Arterial Blood pH 7.167*L, Arterial Blood Partial Pressure CO2 82.2*H, Arterial Blood Partial Pressure O2 50.7L, Arterial Blood HCO3 29.1H, Arterial Blood Oxygen Saturation 79.7*L, Arterial Blood Base Excess -0.6, Jonathan Test Positive Height (Feet): 6 Height (Inches): 1.00 Weight (Pounds): 190 Objective General Appearance: other - intubated EENT: PERRL/EOMI, normal ENT inspection Neck: non-tender, normal alignment Cardiovascular: normal peripheral pulses, tachycardia Respiratory/Chest: chest wall non-tender, rhonchi - bilaterally Abdomen: normal bowel sounds, non tender Extremities: pitting Neurologic: unresponsive Kulwant Hong M.D. Nov 20, 2020 10:50
--- NOTE | 2020-11-20 12:00 | NUR ---
NURSE NOTES: Pt repositioned. Afebrile. No distress noted. Seen by Dr Hong (received order to dc lasix gtt and D5W as soon as HD is initiated today - states he will discuss this with Dr Gaspar).
--- NOTE | 2020-11-20 12:09 | NUR ---
[employer] CALL CLERK SI: RESP FAILURE ETT/VENT SUPPORT AC 18 TV 450 FIO2 100% PEEP 10 WBC 15.8 NA 153 BUN 148 CR 2.3 IS: LASIX GTT MICAFUNGIN IV IVF D5@ 75ML/HR DOPAMINE GTT DECADRON IV SOLU MEDROL IV ICU STATUS
[2020-11-20] MEDS: Micafungin 100 MG in NS 110 ML IVPB SCH (12:12)
--- NOTE | 2020-11-20 12:44 | Infectious Diseases Prog Note ---
Assessment/Plan Assessment/Plan antibiotics : vancomycin iv, zosyn, micafungin A 1. COVID 19 pneumonia on 100 % Fi O2, saturation 90 % s/p remdesivir s/p dexamethasone 2. respiratory failure 3. diabetes mellitus 4. hypertension 5. renal failure improving P 1. continue iv zosyn, micafungin 2. continue solumedrol 3. d/c iv vancomycin 4. continue isolation Subjective ROS Limited/Unobtainable: Yes Allergies: Coded Allergies: No Known Allergies (Unverified , 11/06/20) Objective Last 24 Hour Vital Signs Date Time Temp Pulse Resp B/P (MAP) Pulse Ox O2 Delivery O2 Flow Rate FiO2 11/20/20 12:00 104 11/20/20 12:00 Mechanical Ventilator 11/20/20 12:00 98.6 106 36 97/38 (57) 86 11/20/20 11:00 104 35 100 11/20/20 11:00 105 36 90/36 (54) 83 11/20/20 10:57 100 11/20/20 10:44 100 11/20/20 10:00 107 35 98/36 (56) 90 11/20/20 09:00 102 36 102/34 (56) 88 11/20/20 08:00 98.7 104 36 108/37 (60) 89 11/20/20 08:00 104 11/20/20 08:00 Mechanical Ventilator 11/20/20 08:00 100 11/20/20 07:00 104 34 100 11/20/20 07:00 103 34 111/36 (61) 90 11/20/20 06:30 104 34 117/37 (63) 87 11/20/20 06:00 98.2 103 32 116/35 (62) 83 11/20/20 05:30 100 30 121/38 (65) 85 11/20/20 05:00 95 29 115/41 (65) 90 11/20/20 04:30 92 24 118/43 (68) 93 11/20/20 04:00 99.0 92 24 110/35 (60) 91 11/20/20 04:00 100 11/20/20 04:00 118/43 11/20/20 04:00 92 11/20/20 04:00 Mechanical Ventilator 11/20/20 03:30 98 34 97/29 (51) 82 11/20/20 03:27 87 27 100 11/20/20 03:00 104 31 131/44 (73) 87 11/20/20 03:00 125/33 11/20/20 02:30 105 30 134/44 (74) 86 11/20/20 02:00 106 29 136/42 (73) 86 11/20/20 02:00 102/21 11/20/20 01:30 108 29 140/47 (78) 87 11/20/20 01:00 108 28 144/47 (79) 85 11/20/20 01:00 111/23 11/20/20 00:30 107 28 145/48 (80) 83 11/20/20 00:00 106/22 11/20/20 00:00 Mechanical Ventilator 11/20/20 00:00 98.2 103 26 139/45 (76) 81 11/20/20 00:00 100 11/19/20 23:30 100 26 126/36 (66) 87 11/19/20 23:00 100 26 128/39 (68) 86 11/19/20 23:00 125/40 11/19/20 22:30 98 27 130/39 (69) 85 11/19/20 22:06 94 24 100 11/19/20 22:00 95 23 121/38 (65) 86 11/19/20 22:00 102/19 11/19/20 21:30 99 27 119/39 (65) 87 11/19/20 21:00 96 25 138/37 (70) 82 11/19/20 21:00 115/29 11/19/20 20:30 98 26 119/25 (56) 95 11/19/20 20:00 100 11/19/20 20:00 100 11/19/20 20:00 133/26 11/19/20 20:00 Mechanical Ventilator 11/19/20 20:00 99.4 102 27 119/22 (54) 95 11/19/20 19:30 105 27 123/25 (57) 92 11/19/20 19:28 105 26 100 11/19/20 19:00 100 27 133/26 (61) 94 11/19/20 19:00 133/26 11/19/20 18:30 100 25 120/25 (56) 96 11/19/20 18:00 136/29 12/29/20 18:00 98 25 136/29 (64) 96 11/19/20 17:30 90 28 135/27 (63) 94 11/19/20 17:25 88 26 100 11/19/20 17:00 85 28 117/18 (51) 92 11/19/20 17:00 117/18 11/19/20 16:22 Mechanical Ventilator 11/19/20 16:00 99.2 90 27 133/20 (57) 92 11/19/20 16:00 88 11/19/20 16:00 133/20 11/19/20 16:00 100 11/19/20 15:30 83 26 133/20 (57) 93 11/19/20 15:10 75 25 100 11/19/20 15:00 122/26 11/19/20 15:00 88 26 122/26 (58) 93 11/19/20 14:30 87 29 118/39 (65) 94 11/19/20 14:00 86 28 112/19 (50) 93 11/19/20 14:00 112/19 11/19/20 13:30 92 30 118/19 (52) 92 11/19/20 13:00 123/19 11/19/20 13:00 90 26 123/19 (53) 90 11/19/20 12:58 128/19 Height (Feet): 6 Height (Inches): 1.00 Weight (Pounds): 190 HEENT: other - intubated Microbiology Date/Time Source Procedure Growth Status 11/19/20 14:00 Sputum Gram Stain Pending Resulted 11/19/20 14:00 Sputum Culture - Preliminary Gram Negative Bacillus 1 Resulted Laboratory Tests Test 11/19/20 18:30 11/19/20 20:49 11/19/20 23:39 11/20/20 04:30 Sodium Level 153 MMOL/L (136-145) H 153 MMOL/L (136-145) H Potassium Level 4.7 MMOL/L (3.5-5.1) 4.7 MMOL/L (3.5-5.1) Chloride Level 118 MMOL/L (98-107) H 117 MMOL/L (98-107) H Carbon Dioxide Level 29 MMOL/L (21-32) 32 MMOL/L (21-32) Anion Gap 6 mmol/L (5-15) 4 mmol/L (5-15) L Blood Urea Nitrogen 148 mg/dL (7-18) H 148 mg/dL (7-18) H Creatinine 2.3 MG/DL (0.55-1.30) H 2.3 MG/DL (0.55-1.30) H Estimat Glomerular Filtration Rate 27.2 mL/min (>60) 27.2 mL/min (>60) Glucose Level 477 MG/DL (74-106) #H 401 MG/DL (74-106) H Calcium Level 7.7 MG/DL (8.5-10.1) L 7.6 MG/DL (8.5-10.1) L POC Whole Blood Glucose Pending Pending White Blood Count 15.8 K/UL (4.8-10.8) H Red Blood Count 2.91 M/UL (4.70-6.10) L Hemoglobin 8.9 G/DL (14.2-18.0) L Hematocrit 28.1 % (42.0-52.0) L Mean Corpuscular Volume 97 FL (80-99) Mean Corpuscular Hemoglobin 30.6 PG (27.0-31.0) Mean Corpuscular Hemoglobin Concent 31.7 G/DL (32.0-36.0) L Red Cell Distribution Width 15.3 % (11.6-14.8) H Platelet Count 114 K/UL (150-450) L Mean Platelet Volume 9.4 FL (6.5-10.1) Neutrophils (%) (Auto) % (45.0-75.0) Lymphocytes (%) (Auto) % (20.0-45.0) Monocytes (%) (Auto) % (1.0-10.0) Eosinophils (%) (Auto) % (0.0-3.0) Basophils (%) (Auto) % (0.0-2.0) Differential Total Cells Counted 100 Neutrophils % (Manual) 95 % (45-75) H Lymphocytes % (Manual) 3 % (20-45) L Monocytes % (Manual) 2 % (1-10) Eosinophils % (Manual) 0 % (0-3) Basophils % (Manual) 0 % (0-2) Band Neutrophils 0 % (0-8) Platelet Estimate Decreased L Platelet Morphology Normal Hypochromasia 1+ Anisocytosis 1+ Phosphorus Level 5.3 MG/DL (2.5-4.9) H Magnesium Level 2.4 MG/DL (1.8-2.4) Total Bilirubin 0.6 MG/DL (0.2-1.0) Aspartate Amino Transf (AST/SGOT) 36 U/L (15-37) Alanine Aminotransferase (ALT/SGPT) 58 U/L (12-78) Alkaline Phosphatase 168 U/L (46-116) H Total Protein 5.5 G/DL (6.4-8.2) L Albumin 1.8 G/DL (3.4-5.0) L Globulin 3.7 g/dL Albumin/Globulin Ratio 0.5 (1.0-2.7) L Test 11/20/20 08:00 11/20/20 12:05 Arterial Blood pH 7.167 (7.350-7.450) Arterial Blood Partial Pressure CO2 82.2 mmHg (35.0-45.0) *H Arterial Blood Partial Pressure O2 50.7 mmHg (75.0-100.0) L Arterial Blood HCO3 29.1 mmol/L (22.0-26.0) H Arterial Blood Oxygen Saturation 79.7 % (95-100) *L Arterial Blood Base Excess -0.6 (-2-2) Jonathan Test Positive Random Vancomycin Level Pending Current Medications Medications (Trade) Dose Ordered Sig/Violet Route PRN Reason Start Time Stop Time Status Last Admin Dose Admin Acetaminophen (Tylenol) 650 mg Q4H PRN GT Temp >100.5 11/12/20 11:00 12/12/20 10:44 11/18/20 14:55 Chlorhexidine Gluconate (Patt-Hex 2%) 1 applic DAILY@2000 TOPIC 11/17/20 20:00 02/15/21 19:59 11/19/20 20:00 Dextrose 1,000 ml @ 75 mls/hr [id number] IV 11/20/20 10:30 12/20/20 10:29 11/20/20 10:43 Dextrose (Dextrose 50%) 25 ml Q30M PRN IV Hypoglycemia 11/06/20 20:00 02/04/21 19:59 Dextrose (Dextrose 50%) 50 ml Q30M PRN IV Hypoglycemia 11/06/20 20:00 02/04/21 19:59 Docusate Sodium (Colace) 100 mg EVERY 12 HOURS GT 11/17/20 21:00 12/14/20 17:59 11/20/20 09:05 Dopamine HCl/ Dextrose 250 ml @ 0 mls/hr Q24H IV 11/19/20 19:45 11/22/20 19:35 11/19/20 20:00 Enoxaparin Sodium (Lovenox) 30 mg Q24H SUBQ 11/20/20 21:00 02/05/21 20:59 Flumazenil (Romazicon) 0.2 mg NEEDED PRN IV Sedation reversal 11/06/20 20:00 Furosemide 100 mg/ Dextrose 100 ml @ 10 mls/hr Q10H IV 11/20/20 12:00 12/20/20 11:59 11/20/20 12:12 Insulin Aspart (NovoLOG) EVERY 6 HOURS SUBQ 11/08/20 12:00 02/05/21 16:29 11/20/20 11:34 Insulin Detemir (Levemir) 20 units EVERY 12 HOURS SUBQ 11/19/20 21:00 02/05/21 20:59 11/20/20 09:07 Methylprednisolone Sodium Succinate (Solu-MEDROL) 40 mg EVERY 12 HOURS IVP 11/18/20 12:30 02/16/21 12:29 11/20/20 09:05 Metoclopramide HCl (Reglan) 5 mg Q6HR IVP 11/14/20 12:26 12/14/20 12:25 11/20/20 11:27 Micafungin Sodium 100 mg/Sodium Chloride 110 ml @ 110 mls/hr Q24H IVPB 11/20/20 12:00 11/27/20 11:59 11/20/20 12:12 Naloxone HCl (Narcan) 0.4 mg NEEDED PRN IVP RR less than 6/min 11/06/20 20:00 02/04/21 19:59 Norepinephrine Bitartrate 250 ml @ 0 mls/hr Q24H IV 11/18/20 19:30 11/21/20 19:28 11/19/20 04:56 Ondansetron HCl (Zofran) 4 mg Q6H PRN IVP Nausea & Vomiting 11/06/20 20:00 12/06/20 19:59 Pantoprazole (Protonix) 40 mg DAILY IVP 11/08/20 09:00 12/08/20 08:59 11/20/20 09:05 Piperacillin Sod/ Tazobactam Sod 3.375 gm/Sodium Chloride 110 ml @ 27.5 mls/hr Q8HR IVPB 11/17/20 22:00 11/24/20 21:59 11/20/20 06:02 Polyethylene Glycol (Miralax) 17 gm BEDTIME GT 11/14/20 21:00 12/14/20 20:59 11/19/20 20:49 Vancomycin HCl (Vanco pharmacy to dose) 1 ea DAILY PRN MISC Per rx protocol 11/17/20 11:30 12/17/20 11:29 Gabby White MD Nov 20, 2020 12:44
--- NOTE | 2020-11-20 13:30 | NUR ---
NURSE NOTES: right fem ester cath placed for HD epr Dr Barone.
[2020-11-20] MEDS ORDERED: Lidocaine 1% Plain 30 ml INJ PRN (13:36)
--- NOTE | 2020-11-20 13:42 | Neurology Progress Note ---
Interim History Interim History ROS Limited/Unobtainable: Yes Objective Physical Exam Last Vital Signs Date Time Temp Pulse Resp B/P (MAP) Pulse Ox O2 Delivery O2 Flow Rate FiO2 11/20/20 12:00 104 11/20/20 12:00 Mechanical Ventilator 11/20/20 12:00 98.6 36 97/38 (57) 86 11/20/20 11:00 100 Laboratory Tests Test 11/19/20 18:30 11/19/20 20:49 11/19/20 23:39 11/20/20 04:30 Sodium Level 153 MMOL/L (136-145) H 153 MMOL/L (136-145) H Potassium Level 4.7 MMOL/L (3.5-5.1) 4.7 MMOL/L (3.5-5.1) Chloride Level 118 MMOL/L (98-107) H 117 MMOL/L (98-107) H Carbon Dioxide Level 29 MMOL/L (21-32) 32 MMOL/L (21-32) Anion Gap 6 mmol/L (5-15) 4 mmol/L (5-15) L Blood Urea Nitrogen 148 mg/dL (7-18) H 148 mg/dL (7-18) H Creatinine 2.3 MG/DL (0.55-1.30) H 2.3 MG/DL (0.55-1.30) H Estimat Glomerular Filtration Rate 27.2 mL/min (>60) 27.2 mL/min (>60) Glucose Level 477 MG/DL (74-106) #H 401 MG/DL (74-106) H Calcium Level 7.7 MG/DL (8.5-10.1) L 7.6 MG/DL (8.5-10.1) L POC Whole Blood Glucose Pending Pending White Blood Count 15.8 K/UL (4.8-10.8) H Red Blood Count 2.91 M/UL (4.70-6.10) L Hemoglobin 8.9 G/DL (14.2-18.0) L Hematocrit 28.1 % (42.0-52.0) L Mean Corpuscular Volume 97 FL (80-99) Mean Corpuscular Hemoglobin 30.6 PG (27.0-31.0) Mean Corpuscular Hemoglobin Concent 31.7 G/DL (32.0-36.0) L Red Cell Distribution Width 15.3 % (11.6-14.8) H Platelet Count 114 K/UL (150-450) L Mean Platelet Volume 9.4 FL (6.5-10.1) Neutrophils (%) (Auto) % (45.0-75.0) Lymphocytes (%) (Auto) % (20.0-45.0) Monocytes (%) (Auto) % (1.0-10.0) Eosinophils (%) (Auto) % (0.0-3.0) Basophils (%) (Auto) % (0.0-2.0) Differential Total Cells Counted 100 Neutrophils % (Manual) 95 % (45-75) H Lymphocytes % (Manual) 3 % (20-45) L Monocytes % (Manual) 2 % (1-10) Eosinophils % (Manual) 0 % (0-3) Basophils % (Manual) 0 % (0-2) Band Neutrophils 0 % (0-8) Platelet Estimate Decreased L Platelet Morphology Normal Hypochromasia 1+ Anisocytosis 1+ Phosphorus Level 5.3 MG/DL (2.5-4.9) H Magnesium Level 2.4 MG/DL (1.8-2.4) Total Bilirubin 0.6 MG/DL (0.2-1.0) Aspartate Amino Transf (AST/SGOT) 36 U/L (15-37) Alanine Aminotransferase (ALT/SGPT) 58 U/L (12-78) Alkaline Phosphatase 168 U/L (46-116) H Total Protein 5.5 G/DL (6.4-8.2) L Albumin 1.8 G/DL (3.4-5.0) L Globulin 3.7 g/dL Albumin/Globulin Ratio 0.5 (1.0-2.7) L Test 11/20/20 08:00 11/20/20 12:05 Arterial Blood pH 7.167 (7.350-7.450) Arterial Blood Partial Pressure CO2 82.2 mmHg (35.0-45.0) *H Arterial Blood Partial Pressure O2 50.7 mmHg (75.0-100.0) L Arterial Blood HCO3 29.1 mmol/L (22.0-26.0) H Arterial Blood Oxygen Saturation 79.7 % (95-100) *L Arterial Blood Base Excess -0.6 (-2-2) Jonathan Test Positive Random Vancomycin Level 22.8 ug/mL Neurologic Exam Objective VITAL SIGNS: Reviewed GENERAL: For general physical examination, please refer to other physicians' examination for details. NEUROLOGIC: Mental status -not responding he does not follow commands. Cranial nerves II through XII are tested. Pupils are equal and reactive bilaterally. There is no obvious facial asymmetry. He is currently intubated. Motor examination, the patient does have spontaneous movements of bilateral upper and lower extremities without any focal deficits. He does respond to painful stimulation bilaterally and withdraws both upper and lower extremities. Impression/Recommendations Status: stable Diagnostic Impression ASSESSMENT: 1. Acute metabolic encephalopathy, no change 2. Respiratory failure. 3. COVID-19 infection. 4. Diabetes mellitus. 5. Hypertension. 6. Hyperkalemia. 7. CKD. 8. Metabolic acidosis. Recommendations DISCUSSION AND PLAN: The patient presented with COVID-19 infection and has respiratory failure. His change in mental status was likely due to his multiple medical and electrolyte abnormalities. We would like to obtain an imaging study of his brain when is more medically stable. He has not had any imaging study of his brain, so we will obtain a CT scan of the brain as when is possible, he is off any sedating medications. He was on propofol which could have contributed to his altered mental status. He is no longer on propofol on dopamine and levo now and is off restraints. We will continue to monitor his neurological status during this hospitalization and provide further recommendations as necessary. As of now he has a poor prognosis. Thank you for allowing us to participate in the care of this patient. Tessie Greco NP Nov 20, 2020 13:42
--- NOTE | 2020-11-20 14:13 | NUR ---
[employer] REVIEWED AND FAXED.
--- NOTE | 2020-11-20 14:24 | NUR ---
NURSE NOTES: Left mesasge for Dr Gaspar with recent ABG results. Awaiting call back.
--- NOTE | 2020-11-20 15:00 | NUR ---
NURSE NOTES: Received call back from Dr Gaspar with no new orders at this time - ABGs noted.
--- NOTE | 2020-11-20 15:20 | General Progress Note ---
Subjective Date patient seen: Nov 20, 2020 Allergies: Coded Allergies: No Known Allergies (Unverified , 11/06/20) Subjective Visited patient at bedside; Continues to have to be on pressors intermittently; Fi02 100%. Renal function remains poor. Appreciate Consultants. Remains critical; trial of HD to see if this helps pulm status. Objective Last 24 Hour Vital Signs Date Time Temp Pulse Resp B/P (MAP) Pulse Ox O2 Delivery O2 Flow Rate FiO2 11/20/20 15:00 95 33 97/33 (54) 93 11/20/20 14:00 98 33 90/33 (52) 92 11/20/20 13:00 101 36 95/35 (55) 92 11/20/20 12:00 104 11/20/20 12:00 Mechanical Ventilator 11/20/20 12:00 98.6 106 36 97/38 (57) 86 11/20/20 11:00 104 35 100 11/20/20 11:00 105 36 90/36 (54) 83 11/20/20 10:57 100 11/20/20 10:44 100 11/20/20 10:00 107 35 98/36 (56) 90 11/20/20 09:00 102 36 102/34 (56) 88 11/20/20 08:00 98.7 104 36 108/37 (60) 89 11/20/20 08:00 104 11/20/20 08:00 Mechanical Ventilator 11/20/20 08:00 100 11/20/20 07:00 104 34 100 11/20/20 07:00 103 34 111/36 (61) 90 11/20/20 06:30 104 34 117/37 (63) 87 11/20/20 06:00 98.2 103 32 116/35 (62) 83 11/20/20 05:30 100 30 121/38 (65) 85 11/20/20 05:00 95 29 115/41 (65) 90 11/20/20 04:30 92 24 118/43 (68) 93 11/20/20 04:00 99.0 92 24 110/35 (60) 91 11/20/20 04:00 100 11/20/20 04:00 118/43 11/20/20 04:00 92 11/20/20 04:00 Mechanical Ventilator 11/20/20 03:30 98 34 97/29 (51) 82 11/20/20 03:27 87 27 100 11/20/20 03:00 104 31 131/44 (73) 87 11/20/20 03:00 125/33 11/20/20 02:30 105 30 134/44 (74) 86 11/20/20 02:00 106 29 136/42 (73) 86 11/20/20 02:00 102/21 11/20/20 01:30 108 29 140/47 (78) 87 11/20/20 01:00 108 28 144/47 (79) 85 11/20/20 01:00 111/23 11/20/20 00:30 107 28 145/48 (80) 83 11/20/20 00:00 106/22 11/20/20 00:00 Mechanical Ventilator 11/20/20 00:00 98.2 103 26 139/45 (76) 81 11/20/20 00:00 100 11/19/20 23:30 100 26 126/36 (66) 87 11/19/20 23:00 100 26 128/39 (68) 86 11/19/20 23:00 125/40 11/19/20 22:30 98 27 130/39 (69) 85 11/19/20 22:06 94 24 100 11/19/20 22:00 95 23 121/38 (65) 86 11/19/20 22:00 102/19 11/19/20 21:30 99 27 119/39 (65) 87 11/19/20 21:00 96 25 138/37 (70) 82 11/19/20 21:00 115/29 11/19/20 20:30 98 26 119/25 (56) 95 11/19/20 20:00 100 11/19/20 20:00 100 11/19/20 20:00 133/26 11/19/20 20:00 Mechanical Ventilator 11/19/20 20:00 99.4 102 27 119/22 (54) 95 11/19/20 19:30 105 27 123/25 (57) 92 11/19/20 19:28 105 26 100 11/19/20 19:00 100 27 133/26 (61) 94 11/19/20 19:00 133/26 11/19/20 18:30 100 25 120/25 (56) 96 11/19/20 18:00 136/29 11/19/20 18:00 98 25 136/29 (64) 96 11/19/20 17:30 90 28 135/27 (63) 94 11/19/20 17:25 88 26 100 11/19/20 17:00 85 28 117/18 (51) 92 11/19/20 17:00 117/18 11/19/20 16:22 Mechanical Ventilator 11/19/20 16:00 99.2 90 27 133/20 (57) 92 11/19/20 16:00 88 11/19/20 16:00 133/20 11/19/20 16:00 100 11/19/20 15:30 83 26 133/20 (57) 93 Intake and Output 11/19/20 11/20/20 19:00 07:00 Intake Total 2447.13403 ml 2159.698 ml Output Total 1675 ml 895 ml Balance 772.35080 ml 1264.698 ml Free Water 800 ml 1200 ml IV Total 807.01445 ml 179.698 ml Tube Feeding 780 ml 780 ml Other 60 ml Output Urine Total 1675 ml 895 ml Laboratory Tests 11/19/20 18:26: POC Whole Blood Glucose 386H 11/19/20 18:30: Sodium Level 153H, Potassium Level 4.7, Chloride Level 118H, Carbon Dioxide Level 29, Anion Gap 6, Blood Urea Nitrogen 148H, Creatinine 2.3H, Estimat Glomerular Filtration Rate 27.2, Glucose Level 477#H, Calcium Level 7.7L 11/19/20 20:49: POC Whole Blood Glucose [Pending] 11/19/20 23:39: POC Whole Blood Glucose [Pending] 11/20/20 04:30: White Blood Count 15.8H, Red Blood Count 2.91L, Hemoglobin 8.9L, Hematocrit 28.1L, Mean Corpuscular Volume 97, Mean Corpuscular Hemoglobin 30.6, Mean Corpuscular Hemoglobin Concent 31.7L, Red Cell Distribution Width 15.3H, Platelet Count 114L, Mean Platelet Volume 9.4, Neutrophils (%) (Auto) , Lymphocytes (%) (Auto) , Monocytes (%) (Auto) , Eosinophils (%) (Auto) , Basophils (%) (Auto) , Differential Total Cells Counted 100, Neutrophils % (Manual) 95H, Lymphocytes % (Manual) 3L, Monocytes % (Manual) 2, Eosinophils % (Manual) 0, Basophils % (Manual) 0, Band Neutrophils 0, Platelet Estimate DecreasedL, Platelet Morphology Normal, Hypochromasia 1+, Anisocytosis 1+, Sodium Level 153H, Potassium Level 4.7, Chloride Level 117H, Carbon Dioxide Level 32, Anion Gap 4L, Blood Urea Nitrogen 148H, Creatinine 2.3H, Estimat Glomerular Filtration Rate 27.2, Glucose Level 401H, Calcium Level 7.6L, Phosphorus Level 5.3H, Magnesium Level 2.4, Total Bilirubin 0.6, Aspartate Amino Transf (AST/SGOT) 36, Alanine Aminotransferase (ALT/SGPT) 58, Alkaline Phosphatase 168H, Total Protein 5.5L, Albumin 1.8L, Globulin 3.7, Albumin/Globulin Ratio 0.5L 11/20/20 05:36: POC Whole Blood Glucose [Pending] 11/20/20 08:00: Arterial Blood pH 7.167*L, Arterial Blood Partial Pressure CO2 82.2*H, Arterial Blood Partial Pressure O2 50.7L, Arterial Blood HCO3 29.1H, Arterial Blood Oxygen Saturation 79.7*L, Arterial Blood Base Excess -0.6, Jonathan Test Positive 11/20/20 12:05: Random Vancomycin Level 22.8 11/20/20 14:00: Arterial Blood pH 7.215*L, Arterial Blood Partial Pressure CO2 76.3*H, Arterial Blood Partial Pressure O2 54.8L, Arterial Blood HCO3 30.2H, Arterial Blood Oxygen Saturation 83.8*L, Arterial Blood Base Excess 1.5, Jonathan Test Positive Height (Feet): 6 Height (Inches): 1.00 Weight (Pounds): 190 Objective Intubated/Sedated/Critical NG tube in place Anasarca Diffuse RRR, on pressor support, CVC line noted Douglas Cath Abdomen non distended Sedated, non focal Neuro Exam Assessment/Plan Status: stable Assessment/Plan: 84 yo M w DM2, HTN, ? CKD admitted for Covid19 PNA with SAMEER: #Septic shock #Acute hypoxemia Resp failure 2/2 covid PNA - + , Intubated # Covid PNA - #Pneumomediastinum Appreciate ID/Pulm - S/P CVC placement - AB now are Zosyn and Micafungin per ID (s/p Vanco) - Continue Solumedrol IV - CXR with improvement with pneumomediastinum - Pressor support w/ Dopamine and Levophed, Propfol for Sedation, monitor TG - NG tube 11/07 for meds. start tube feeding - IV fluids per nephro - DVT/GI ppx - s/p decadron 6mg iv daily - s/p Remdesivir per ID (11/09 started) - s/p azithromycin (11/08 started ) - s/p Vancomycin (11/09 started) #Acute Renal Failure now Requiring HD Appreciate Nephro S/P Ray, Initiate HD 11/20 Hoping this will help the pulmonary edema/fluid shifting Douglas Cath; Strict I/O On lasix drip #S. hominis bacteremia, Contaminant? Defer to ID Appreciate ID AB as above #Anemia - GI consult Dr. Saavedra - PPI, Monitor for GIB #DM2 uncontrolled - Adjust long acting daily to maintain blood sugar 180 or less - SSI, Accuchecks Q6 w/ tube feeds - Requirements will be increased while on steroids DVTPPX: lovenox GI PPX: protonix Fluids: per nephro Diet: NPO, tube feedings PT/OT: deferred Code status: Full code Dispo: SNF eventually. Guarded prognosis. Family aware Reason for Continued Hospitalization: Hypoxia Time of my involvement, the patient's condition was critical with high potential for and/or physiologic deterioration secondary to acute hypoxic res piratory failure as delineated in the note above. On the above date of service, I spent a total of 43 minutes in the ICU evalua ting, managing, and providing critical care services to this patient, including time spent documenting these activities, counseling patient/family, and coordinating care. Angelica Colby D.O. Nov 20, 2020 15:20
--- NOTE | 2020-11-20 16:00 | NUR ---
NURSE NOTES: Pt repositioned. PO care provided. Afebrile. No distress noted.
--- NOTE | 2020-11-20 17:53 | Surgery Progress Note ---
Surgery Progress Note Subjective Procedure Performed Right femoral central venous catheter insertion Additional Comments ill appearing no acute events labs noted micro reviewed right temp hd line today Objective Last 24 Hour Vital Signs Date Time Temp Pulse Resp B/P (MAP) Pulse Ox O2 Delivery O2 Flow Rate FiO2 11/20/20 17:00 92 33 90/32 (51) 93 11/20/20 16:30 92 31 90/32 (51) 94 11/20/20 16:00 Mechanical Ventilator 11/20/20 16:00 98.1 93 33 90/32 (51) 93 11/20/20 16:00 100 11/20/20 16:00 104 11/20/20 15:00 95 33 97/33 (54) 93 11/20/20 14:40 93 30 100 11/20/20 14:00 98 33 90/33 (52) 92 11/20/20 13:00 101 36 95/35 (55) 92 11/20/20 12:00 104 11/20/20 12:00 Mechanical Ventilator 11/20/20 12:00 98.6 106 36 97/38 (57) 86 11/20/20 12:00 100 11/20/20 11:00 104 35 100 11/20/20 11:00 105 36 90/36 (54) 83 11/20/20 10:57 100 11/20/20 10:44 100 11/20/20 10:00 107 35 98/36 (56) 90 11/20/20 09:00 102 36 102/34 (56) 88 11/20/20 08:00 98.7 104 36 108/37 (60) 89 11/20/20 08:00 104 11/20/20 08:00 Mechanical Ventilator 11/20/20 08:00 100 11/20/20 07:00 104 34 100 11/20/20 07:00 103 34 111/36 (61) 90 11/20/20 06:30 104 34 117/37 (63) 87 11/20/20 06:00 98.2 103 32 116/35 (62) 83 11/20/20 05:30 100 30 121/38 (65) 85 11/20/20 05:00 95 29 115/41 (65) 90 11/20/20 04:30 92 24 118/43 (68) 93 11/20/20 04:00 99.0 92 24 110/35 (60) 91 11/20/20 04:00 100 11/20/20 04:00 118/43 11/20/20 04:00 92 11/20/20 04:00 Mechanical Ventilator 11/20/20 03:30 98 34 97/29 (51) 82 11/20/20 03:27 87 27 100 11/20/20 03:00 104 31 131/44 (73) 87 11/20/20 03:00 125/33 11/20/20 02:30 105 30 134/44 (74) 86 11/20/20 02:00 106 29 136/42 (73) 86 11/20/20 02:00 102/21 11/20/20 01:30 108 29 140/47 (78) 87 11/20/20 01:00 108 28 144/47 (79) 85 11/20/20 01:00 111/23 11/20/20 00:30 107 28 145/48 (80) 83 11/20/20 00:00 106/22 11/20/20 00:00 Mechanical Ventilator 11/20/20 00:00 98.2 103 26 139/45 (76) 81 11/20/20 00:00 100 11/19/20 23:30 100 26 126/36 (66) 87 11/19/20 23:00 100 26 128/39 (68) 86 11/19/20 23:00 125/40 11/19/20 22:30 98 27 130/39 (69) 85 11/19/20 22:06 94 24 100 11/19/20 22:00 95 23 121/38 (65) 86 11/19/20 22:00 102/19 11/19/20 21:30 99 27 119/39 (65) 87 11/19/20 21:00 96 25 138/37 (70) 82 11/19/20 21:00 115/29 11/19/20 20:30 98 26 119/25 (56) 95 11/19/20 20:00 100 11/19/20 20:00 100 11/19/20 20:00 133/26 11/19/20 20:00 Mechanical Ventilator 11/19/20 20:00 99.4 102 27 119/22 (54) 95 11/19/20 19:30 105 27 123/25 (57) 92 11/19/20 19:28 105 26 100 11/19/20 19:00 100 27 133/26 (61) 94 11/19/20 19:00 133/26 11/19/20 18:30 100 25 120/25 (56) 96 11/19/20 18:00 136/29 11/19/20 18:00 98 25 136/29 (64) 96 I&O Intake and Output 11/19/20 11/20/20 19:00 07:00 Intake Total 2447.45395 ml 2159.698 ml Output Total 1675 ml 895 ml Balance 772.10300 ml 1264.698 ml Free Water 800 ml 1200 ml IV Total 807.49627 ml 179.698 ml Tube Feeding 780 ml 780 ml Other 60 ml Output Urine Total 1675 ml 895 ml Cardiovascular: RSR Respiratory: decreased breath sounds Abdomen: soft, non-tender, present bowel sounds Extremities: no cyanosis Laboratory Tests Test 11/19/20 18:26 11/19/20 18:30 11/19/20 20:49 11/19/20 23:39 POC Whole Blood Glucose 386 MG/DL (74-106) H Pending Pending Sodium Level 153 MMOL/L (136-145) H Potassium Level 4.7 MMOL/L (3.5-5.1) Chloride Level 118 MMOL/L (98-107) H Carbon Dioxide Level 29 MMOL/L (21-32) Anion Gap 6 mmol/L (5-15) Blood Urea Nitrogen 148 mg/dL (7-18) H Creatinine 2.3 MG/DL (0.55-1.30) H Estimat Glomerular Filtration Rate 27.2 mL/min (>60) Glucose Level 477 MG/DL (74-106) #H Calcium Level 7.7 MG/DL (8.5-10.1) L Test 11/20/20 04:30 11/20/20 05:36 11/20/20 08:00 11/20/20 12:05 White Blood Count 15.8 K/UL (4.8-10.8) H Red Blood Count 2.91 M/UL (4.70-6.10) L Hemoglobin 8.9 G/DL (14.2-18.0) L Hematocrit 28.1 % (42.0-52.0) L Mean Corpuscular Volume 97 FL (80-99) Mean Corpuscular Hemoglobin 30.6 PG (27.0-31.0) Mean Corpuscular Hemoglobin Concent 31.7 G/DL (32.0-36.0) L Red Cell Distribution Width 15.3 % (11.6-14.8) H Platelet Count 114 K/UL (150-450) L Mean Platelet Volume 9.4 FL (6.5-10.1) Neutrophils (%) (Auto) % (45.0-75.0) Lymphocytes (%) (Auto) % (20.0-45.0) Monocytes (%) (Auto) % (1.0-10.0) Eosinophils (%) (Auto) % (0.0-3.0) Basophils (%) (Auto) % (0.0-2.0) Differential Total Cells Counted 100 Neutrophils % (Manual) 95 % (45-75) H Lymphocytes % (Manual) 3 % (20-45) L Monocytes % (Manual) 2 % (1-10) Eosinophils % (Manual) 0 % (0-3) Basophils % (Manual) 0 % (0-2) Band Neutrophils 0 % (0-8) Platelet Estimate Decreased L Platelet Morphology Normal Hypochromasia 1+ Anisocytosis 1+ Sodium Level 153 MMOL/L (136-145) H Potassium Level 4.7 MMOL/L (3.5-5.1) Chloride Level 117 MMOL/L (98-107) H Carbon Dioxide Level 32 MMOL/L (21-32) Anion Gap 4 mmol/L (5-15) L Blood Urea Nitrogen 148 mg/dL (7-18) H Creatinine 2.3 MG/DL (0.55-1.30) H Estimat Glomerular Filtration Rate 27.2 mL/min (>60) Glucose Level 401 MG/DL (74-106) H Calcium Level 7.6 MG/DL (8.5-10.1) L Phosphorus Level 5.3 MG/DL (2.5-4.9) H Magnesium Level 2.4 MG/DL (1.8-2.4) Total Bilirubin 0.6 MG/DL (0.2-1.0) Aspartate Amino Transf (AST/SGOT) 36 U/L (15-37) Alanine Aminotransferase (ALT/SGPT) 58 U/L (12-78) Alkaline Phosphatase 168 U/L (46-116) H Total Protein 5.5 G/DL (6.4-8.2) L Albumin 1.8 G/DL (3.4-5.0) L Globulin 3.7 g/dL Albumin/Globulin Ratio 0.5 (1.0-2.7) L POC Whole Blood Glucose Pending Arterial Blood pH 7.167 (7.350-7.450) Arterial Blood Partial Pressure CO2 82.2 mmHg (35.0-45.0) *H Arterial Blood Partial Pressure O2 50.7 mmHg (75.0-100.0) L Arterial Blood HCO3 29.1 mmol/L (22.0-26.0) H Arterial Blood Oxygen Saturation 79.7 % (95-100) *L Arterial Blood Base Excess -0.6 (-2-2) Jonathan Test Positive Random Vancomycin Level 22.8 ug/mL Test 11/20/20 14:00 Arterial Blood pH 7.215 (7.350-7.450) Arterial Blood Partial Pressure CO2 76.3 mmHg (35.0-45.0) *H Arterial Blood Partial Pressure O2 54.8 mmHg (75.0-100.0) L Arterial Blood HCO3 30.2 mmol/L (22.0-26.0) H Arterial Blood Oxygen Saturation 83.8 % (95-100) *L Arterial Blood Base Excess 1.5 (-2-2) Jonathan Test Positive Plan Problems: (1) ARDS (adult respiratory distress syndrome) Assessment & Plan: 84-year-old male who pressor insufficiency ARDS Covid on vent ET tube in place chest x-ray reviewed central line in place on sedation. Continue daily weaning trials. NG tube okay for diet tube feeds continue. Microbiology reviewed labs reviewed. Trend labs. IV fluids. Will follow with recommendations thank you for let me participate patient's care cxr stable on abx covid + cont abx cont f wean as tolerated DAILY ESTIMATED NEEDS: Needs based on Critcal care 82.4kg abw 22-28 kcals/kg 6413-0260 total kcals 1.2-2 g protein/kg 99-165 g total protein 20-25/ or per MD mL/kg 6230-8814 total fluid mLs NUTRITION DIAGNOSIS: Swallowing difficulty r/t respiratory status as evidenced by 84 y/o M adm w/ covid++, now orally intubated, NPO. ENTERAL NUTRITION RECOMMENDATIONS: VITAL 1.2 GOAL OF 65ml/hr x24 hrs to provide 1560ml, 1872 kcal, 117g pro, 1265ml free H2O - When hemodynamically stable, rec to start non oral feeds to meet est kcal and pro needs. - Start Vital 1.2 @35ml/hr for 6 hrs, advance as tolerated 10ml/hr q4-6 hrs to goal. - Flush per HOB over 30 degrees ADDITIONAL RECOMMENDATIONS: 1) Maintain calibrated bed scale wts 2) Followed by end, monitor for hypoglycemia while NPO 3) Feed when hemodynamically stable, TF recs as above for critical care, carb control, high pro content to meet est needs 4) Re-evaluate TF w/ change in propofol rate-> current rate w/ TF's do NOT exceed est needs. (2) Hypoxemia (3) Renal failure (4) Elevated troponin (5) COVID-19 Assessment & Plan: ++ on abx tx per Tommie Teague Nov 20, 2020 17:53
--- NOTE | 2020-11-20 17:56 | Operative Note - PDOC ---
Operative Note Operative Note Pre-op Diagnosis: Sepsis, hypotension, critical care renal insufficiency acidosis Procedure: Right femoral temp HD catheter insertion Post-op Diagnosis: same as pre-op Surgeon: roel Anesthesia: local Specimen: none Complications: none Condition: unstable Fluids: none Estimated Blood Loss: minimal Drains: none Implant(s) used?: No Description of Procedure Patient in the intensive care unit intubated on support deteriorating septic leukocytosis abnormal labs requiring HD as per nephrology. Temp HD catheter indicated recommended. Line placed to intensive care unit urgently at the bedside. Description of Procedure Patient was made comfortable in the supine position. The right groin is prepped and draped in same surgical fashion. Local anatomic landmarks identified. Local anesthetic infiltrated. The right femoral vein was cannulated on first stick without complication. Good venous flow identified. Guidewire placed through the needle needle removed. Small skin incision made around the guidewire. A dilator was used and tract was dilated. A temp HD catheter was inserted over the guidewire guidewire was removed and discarded. All 3 ports flushed and aspirated appropriately. Line was sutured in place. Dressings were applied. Patient tolerated procedure well. Line okay to use. Tommie Barone Nov 20, 2020 17:56
--- NOTE | 2020-11-20 18:00 | NUR ---
NURSE NOTES: Pt repositioned and cleaned. No acute distress noted.
--- NOTE | 2020-11-20 19:25 | NUR ---
NURSE HAND-OFF REPORT: Latest Vital Signs: Temperature 98.1 , Pulse 93 , B/P 111 /26 , Respiratory Rate 31 , O2 SAT 88 , Mechanical Ventilator, FiO2 100% . Vital Sign Comment: dopa gtt turned on at this time for SBP in the 60s EKG Rhythm: Sinus Rhythm Rhythm change?: N MD Notified?: n/a MD Response: n/a Latest Blackwell Fall Score: 50 Fall Risk: High Risk Safety Measures: Call light Within Reach, Bed Alarm Zone 1, Side Rails Side Rails x3, Bed position Low and Locked. Fall Precautions: Yellow Socks Yellow Gown Door Sign Patient Fall Education Report given to LYNDA Ledezma.
[2020-11-20] MEDS: Norepinephrine 4mg/NS Premix 250 ML IV SCH (19:30)
--- NOTE | 2020-11-20 19:30 | NUR ---
NURSE NOTES: Pt received from LYNDA Hutchinson. Pt grimaces to light pain stimuli; however, does not open eyes or follow commands; gag reflex are diminished; bilat pupils equal and round 3mm with sluggish rxn to light. Pt is ST to library monitor with 2+ radial and dorsalis pedis pulses. 2+ pitting edema noted to hands. Afebrile. cap refill less than 2 sec. Pt is orally intubated with a 7.5 ETT noted 28 cm at the lip with the following: AC 18 TV 450 FiO2 100 % Peep 10. lung rueda noted diminished upon auscultation. OGT noted running Vital 1.2 at 65 cc/hr. Abdomen is round and soft w/ active bowel sounds to all quadrants. F/C noted draining yellow, clear urine. Skin is intact. Pt has a JANIA PICC with dry and intact, new R femoral Ray cath for HD access. Dopamine gtt running at 2mcg/min. D5W at 75ml/hr bed in lowest position, alarm on, side rails up x 3, call light within reach. Will continue to monitor.
[2020-11-20] MEDS: Miralax 17gm pkt GT SCH (19:46)
[2020-11-20] MEDS: DOPamine 400mg/250ml 250 ML IV SCH (19:46)
[2020-11-20] MEDS: Dyna-Hex 2% Top Sol 2oz TOPIC SCH (19:46)
[2020-11-20] MEDS: Enoxaparin 30mg Inj SUBQ SCH (20:13)
--- NOTE | 2020-11-20 21:37 | NUR ---
NURSE NOTES: Patients son Darien Hicks called to request patient to be designated DNR. Darien Hicks expressed wishes to not have CPR if patient would to lose a pulse. Telephone request made by Benjie Hicks, Charge Nurse Elicia Sweet witnessed Telephone request
--- NOTE | 2020-11-20 21:45 | NUR ---
NURSE NOTES: Called and notified him regarding patients son Darien Hicks request to make patient be DNR. Orders received from Dr. Gaspar to change code status to DNR.
--- NOTE | 2020-11-20 22:16 | NUR ---
NURSE NOTES: Called Dr. Hong and informed him that patient did not tolerate Dialysis due to patients SpO2 decreased into the 50s while on Dialysis. Dr. Hong ordered to just discontinue Dialysis for now. Will continue to monitor.
--- NOTE | 2020-11-20 22:24 | NUR ---
NURSE NOTES: Patient did not tolerate HD, placed patient back on Lasix gtt and D5W as per previously ordered.
[2020-11-21] VITALS (46 sets, daily range): BP systolic 64–161; BP diastolic 25–53
--- NOTE | 2020-11-21 | NUR ---
NURSE NOTES: Patient repositioned and given oral care. Patient saturations remain in the 80s. Blood pressures remains stable while on dopamine gtt. Afebrile
--- NOTE | 2020-11-21 02:00 | NUR ---
NURSE NOTES: Patient given oral care, pressor tapered down, blood pressure remains stable while on pressors, spo2 in the 80s, patient neuro status remains the same-diminished gag reflexes, no response to stimulus, AAOX0.
[2020-11-21 05:05] LABS: HEMATOCRIT 29.2 % (42.0-52.0); HEMOGLOBIN 8.6 G/DL (14.2-18.0); MEAN CORPUSCULAR VOLUME 104 FL (80-99); PLATELET COUNT 92 K/UL (150-450); WHITE BLOOD COUNT 20.6 K/UL (4.8-10.8)
[2020-11-21 05:31] LABS: ALBUMIN/GLOBULIN RATIO 0.6 (1.0-2.7); BILIRUBIN,TOTAL 0.9 MG/DL (0.2-1.0); CALCIUM 7.6 MG/DL (8.5-10.1); POTASSIUM 5.2 MMOL/L (3.5-5.1)
[2020-11-21 05:52] LABS: PHOSPHORUS 6.4 MG/DL (2.5-4.9)
--- NOTE | 2020-11-21 06:00 | NUR ---
NURSE NOTES: Patient repositioned and given oral care. Patients saturating 78%, remains on pressors, Afib and NSR. Inserted rectal tube.
[2020-11-21] MEDS: Piperacillin/Tazobactam 3.375 GM in NS 110 ML IVPB SCH ×2 (06:06→12:55)
[2020-11-21] MEDS: Metoclopramide 10mg/2ml Inj IVP SCH ×4 (06:06→18:03)
[2020-11-21] MEDS: NovoLOG Insulin Flexpen SUBQ SCH ×4 (06:06→19:07)
--- NOTE | 2020-11-21 08:00 | NUR ---
NURSE NOTES: Pt was assessed after receiving change of shift report from Darien HOWELL. Opens eyes to touch, withdraws to pain, does not follow commands. Orally intubated, ETT 7.5 at 28cm/lipline with vent settings AC18, VT450, Peep 10, FIO2 100%, with O2Sat 80-88%. HR fluctuating from 70-88/bpm, while maintained on Dopamine drip at 1mcg/kg/hr, Lasix drip at 10ml/hour, D5W at 75ml/hour. Right femoral ester cath with pigtail and right UA PICC line, double lumen, patent, dressings dry/intact. Bilateral extremities generalized edema, with right upper extremity weeping. OGT present with feeding Vital AF 1.2 at goal rate of 65ml/hour, zero residual. Abdomen is large, round, soft, nontender to touch, with active bowel sounds. Rectal tube is present, draining liquid/brown stool. Douglas catheter present, olyguric, with output of dark ishmael/urine. Skin is intact. HOB at 30 degrees, bed locked, in lowest position, three side rails up. Will continue with plan of care.
[2020-11-21] MEDS: Docusate 100mg/10ml Liq GT SCH ×2 (09:00→20:40)
[2020-11-21] MEDS ORDERED: NS 275ml ONE ×4 (09:09→09:13)
[2020-11-21] MEDS ORDERED: Tubing IV Secondary IV ONE ×3 (09:09→09:12)
[2020-11-21] MEDS ORDERED: Tubing IV Blood Pump IV ONE (09:09)
[2020-11-21] MEDS ORDERED: NS 500ML ONE (09:09)
--- NOTE | 2020-11-21 09:29 | Nephrology Progress Note ---
Assessment/Plan Plan #SAMEER on CKD- likely pre-renal azotemia in the setting of sepsis- now progressing to ATN - concerns for #hypnatremia # acute hypoxemia Resp failure 2/2 covid PNA requiring BIPAP # Covid PNA # Lactic acid elevation # Malnutrition #HTN, current normotensive # elevated D dimer # Trop elevated # DM2 uncontrolled - patient encephalopathic- concerns or uremia given uptrending BUN HD terminated yesterday due to hemodynamic instability will try again today - continue pressors to maintain MAP > 65 - continue free water flushes [id number] - DC bicarb drip - intubated - monitor volume status - monitor ABG - monitor BMP, mag and phos daily - strict I&Os - daily weights - echo - defer renal US - antibiotic per ID time spent 65min Subjective ROS Limited/Unobtainable: Yes Subjective HD terminated yesterday due to hemodynamic instability will try again today volume overloaded on pressors - on levo and dopa patient encephalopathic plan for maharkur placement and trial of HD today Objective Objective Last 24 Hour Vital Signs Date Time Temp Pulse Resp B/P (MAP) Pulse Ox O2 Delivery O2 Flow Rate FiO2 11/21/20 07:00 109/41 11/21/20 07:00 91 33 109/41 (63) 80 11/21/20 06:00 110/45 11/21/20 06:00 89 31 116/46 (69) 79 11/21/20 05:30 97 31 123/53 (76) 79 11/21/20 05:00 96 31 123/38 (66) 79 11/21/20 05:00 105/30 11/21/20 04:30 92 30 126/39 (68) 75 11/21/20 04:15 95 29 111/42 (65) 70 11/21/20 04:00 98.5 95 28 110/43 (65) 57 11/21/20 04:00 100 11/21/20 04:00 92 11/21/20 04:00 Mechanical Ventilator 11/21/20 04:00 133/38 11/21/20 03:45 93 26 103/43 (63) 77 11/21/20 03:30 105 29 161/51 (87) 84 11/21/20 03:15 104 30 158/50 (86) 86 11/21/20 03:00 112/49 11/21/20 03:00 102 27 155/50 (85) 86 11/21/20 02:30 110 30 151/53 (85) 79 11/21/20 02:00 112/29 11/21/20 02:00 101 31 100 11/21/20 02:00 96 28 109/27 (54) 91 11/21/20 01:30 102 29 137/26 (63) 88 11/21/20 01:00 95 29 113/33 (59) 85 11/21/20 01:00 120/39 11/21/20 00:30 93 28 109/27 (54) 85 11/21/20 00:00 99.3 95 28 110/25 (53) 86 11/21/20 00:00 Mechanical Ventilator 11/21/20 00:00 123/45 11/21/20 00:00 100 11/21/20 00:00 96 11/20/20 23:30 94 30 111/28 (55) 87 11/20/20 23:00 115/36 11/20/20 23:00 97 30 110/33 (58) 83 11/20/20 22:30 110 29 120/25 (56) 77 11/20/20 22:00 115/26 11/20/20 22:00 104 31 129/32 (64) 55 11/20/20 21:30 103 30 130/29 (62) 80 11/20/20 21:00 103 30 113/27 (55) 82 11/20/20 21:00 120/25 11/20/20 20:30 105 30 109/29 (55) 81 11/20/20 20:00 100 11/20/20 20:00 Mechanical Ventilator 11/20/20 20:00 110/42 11/20/20 20:00 104 11/20/20 20:00 98.8 101 28 104/27 (52) 79 11/20/20 19:46 111/26 11/20/20 19:30 105 31 122/25 (57) 88 11/20/20 19:29 86 30 100 11/20/20 19:15 93 31 111/26 (54) 88 11/20/20 19:00 86 31 65/31 (42) 89 11/20/20 19:00 65/31 11/20/20 18:45 84 32 90/35 (53) 92 12/30/20 18:30 89 32 91/30 (50) 91 11/20/20 18:00 90 32 92/33 (52) 91 11/20/20 17:30 90 33 91/35 (53) 92 11/20/20 17:00 92 33 90/32 (51) 93 11/20/20 16:30 92 31 90/32 (51) 94 11/20/20 16:00 Mechanical Ventilator 11/20/20 16:00 98.1 93 33 90/32 (51) 93 11/20/20 16:00 100 11/20/20 16:00 104 11/20/20 15:00 95 33 97/33 (54) 93 11/20/20 14:40 93 30 100 11/20/20 14:00 98 33 90/33 (52) 92 11/20/20 13:00 101 36 95/35 (55) 92 11/20/20 12:00 104 11/20/20 12:00 Mechanical Ventilator 11/20/20 12:00 98.6 106 36 97/38 (57) 86 11/20/20 12:00 100 11/20/20 11:00 104 35 100 11/20/20 11:00 105 36 90/36 (54) 83 11/20/20 10:57 100 11/20/20 10:44 100 11/20/20 10:00 107 35 98/36 (56) 90 Intake and Output 11/20/20 11/21/20 19:00 07:00 Intake Total 2681.75 ml 2952.6873 ml Output Total 113 ml 185 ml Balance 2568.75 ml 2767.6873 ml Free Water 810 ml 1200 ml IV Total 1091.75 ml 972.6873 ml Tube Feeding 780 ml 780 ml Output Urine Total 113 ml 185 ml # Bowel Movements 1 Laboratory Tests 11/20/20 12:05: Random Vancomycin Level 22.8 11/20/20 14:00: Arterial Blood pH 7.215*L, Arterial Blood Partial Pressure CO2 76.3*H, Arterial Blood Partial Pressure O2 54.8L, Arterial Blood HCO3 30.2H, Arterial Blood Oxygen Saturation 83.8*L, Arterial Blood Base Excess 1.5, Jonathan Test Positive 11/20/20 19:53: POC Whole Blood Glucose [Pending] 11/20/20 23:47: POC Whole Blood Glucose 105 11/21/20 04:00: White Blood Count 20.6H, Red Blood Count 2.80L, Hemoglobin 8.6L, Hematocrit 29.2L, Mean Corpuscular Volume 104H, Mean Corpuscular Hemoglobin 30.8, Mean Corpuscular Hemoglobin Concent 29.5L, Red Cell Distribution Width 16.0H, Platelet Count 92L, Mean Platelet Volume 8.4, Neutrophils (%) (Auto) , Lymphocytes (%) (Auto) , Monocytes (%) (Auto) , Eosinophils (%) (Auto) , Basophi ls (%) (Auto) , Neutrophils % (Manual) [Pending], Lymphocytes % (Manual) [Pending], Platelet Estimate [Pending], Platelet Morphology [Pending], Sodium Level 152H, Potassium Level 5.2H, Chloride Level 115H, Carbon Dioxide Level 31, Anion Gap 6, Blood Urea Nitrogen 167H, Creatinine 3.0H, Estimat Glomerular Filtration Rate 20.0, Glucose Level 232#H, Calcium Level 7.6L, Phosphorus Level 6.4H, Magnesium Level 2.4, Total Bilirubin 0.9, Aspartate Amino Transf (AST /SGOT) 65H, Alanine Aminotransferase (ALT/SGPT) 61, Alkaline Phosphatase 159H, Total Protein 5.5L, Albumin 2.0L, Globulin 3.5, Albumin/Globulin Ratio 0.6L 11/21/20 08:43: Arterial Blood pH 7.190*L, Arterial Blood Partial Pressure CO2 70.7*H, Arterial Blood Partial Pressure O2 48.9*L, Arterial Blood HCO3 26.4H, Arterial Blood Oxygen Saturation 77.7*L, Arterial Blood Base Excess -2.4L, Jonathan Test Positive Height (Feet): 6 Height (Inches): 1.00 Weight (Pounds): 190 Objective General Appearance: other - intubated EENT: PERRL/EOMI, normal ENT inspection Neck: non-tender, normal alignment Cardiovascular: normal peripheral pulses, tachycardia Respiratory/Chest: chest wall non-tender, rhonchi - bilaterally Abdomen: normal bowel sounds, non tender Extremities: pitting Neurologic: unresponsive Kulwant Hong M.D. Nov 21, 2020 09:29
--- NOTE | 2020-11-21 09:34 | NUR ---
RD ASSESSMENT & RECOMMENDATIONS SEE CARE ACTIVITY FOR COMPLETE ASSESSMENT DAILY ESTIMATED NEEDS: Needs based on Critcal care, renal 82.4kg abw 22-28 kcals/kg 0749-0053 total kcals 1-1.5 g protein/kg 82-124 g total protein 20-25/ or per MD mL/kg 5932-3942 total fluid mLs NUTRITION DIAGNOSIS: Swallowing difficulty r/t respiratory status as evidenced by 84 y/o M adm w/ covid + PNA, now orally intubated, w/ OGT feeds CURRENT TF:Vital AF 1.2 @ goal of 65ml/hr x 24 hrs ENTERAL NUTRITION RECOMMENDATIONS: Nepro @42ml/hr x24 hrs to provide 1008ml, 1814 kcal, 82g pro,733mll free H2O * Rec TF change to NEPRO for worsening renal failure. * With hemodynamic stability, start @22ml/hr for 6 hrs, advance as tolerated 10ml/hr q4-6 hrs to goal. * Flush per MD, HOB over 30 degrees. ADDITIONAL RECOMMENDATIONS: 1) Maintain calibrated bed scale wts 2) Monitor for hyperglycemia: elev BGs 200's, 300's -> Rec endo consult, consider increase insulin regimen 3) Consider prokinetics w/ continued TF residuals 4) Monitor hydration status: Na, BUN, creat elevated, trial of HD stopped 5) Feed w/ hemodynamic stability .
--- NOTE | 2020-11-21 10:00 | NUR ---
NURSE NOTES: AM meds were administered. Oral care was done. Pt was repositioned for comfort.
[2020-11-21] MEDS: Pantoprazole Inj IVP SCH (10:28)
[2020-11-21] MEDS: Solu-MEDROL 40mg Inj IVP SCH ×2 (10:29→21:43)
[2020-11-21] MEDS: Levemir Flexpen SUBQ SCH ×2 (10:29→21:00)
--- NOTE | 2020-11-21 11:00 | NUR ---
NURSE NOTES: Pt's son contacted the nurse's station and was updated on pt's current status.
--- NOTE | 2020-11-21 12:00 | NUR ---
NURSE NOTES: Dr Gaspar is at the nurse's station. MD was updated on pt's current status. Order was received to DC Claire solorio. MD aware pt's trending saturation remains low from 80-88%%. Pt remains afebrile. Repositioned for comfort.
--- NOTE | 2020-11-21 12:03 | Pulmonology Progress Note ---
Subjective ROS Limited/Unobtainable: Yes Interval Events: Doing poorly Constitutional: Reports: no symptoms HEENT: Repors: no symptoms Respiratory: Reports: no symptoms Cardiovascular: Reports: no symptoms Gastrointestinal/Abdominal: Reports: no symptoms Genitourinary: Reports: no symptoms Allergies: Coded Allergies: No Known Allergies (Unverified , 11/06/20) Objective Last 24 Hour Vital Signs Date Time Temp Pulse Resp B/P (MAP) Pulse Ox O2 Delivery O2 Flow Rate FiO2 11/21/20 10:00 97 33 100/36 (57) 81 11/21/20 09:30 99 32 108/37 (60) 81 11/21/20 09:00 100 32 103/41 (61) 83 11/21/20 08:30 100 32 107/38 (61) 83 11/21/20 08:00 Mechanical Ventilator 11/21/20 08:00 91 32 110/38 (62) 84 11/21/20 08:00 100 11/21/20 08:00 91 11/21/20 07:30 91 33 109/41 (63) 83 11/21/20 07:25 90 34 100 11/21/20 07:00 109/41 11/21/20 07:00 91 33 109/41 (63) 80 11/21/20 06:00 110/45 11/21/20 06:00 89 31 116/46 (69) 79 11/21/20 05:30 97 31 123/53 (76) 79 11/21/20 05:00 96 31 123/38 (66) 79 11/21/20 05:00 105/30 11/21/20 04:30 92 30 126/39 (68) 75 11/21/20 04:15 95 29 111/42 (65) 70 11/21/20 04:00 98.5 95 28 110/43 (65) 57 11/21/20 04:00 100 11/21/20 04:00 92 11/21/20 04:00 Mechanical Ventilator 11/21/20 04:00 133/38 11/21/20 03:45 93 26 103/43 (63) 77 11/21/20 03:30 105 29 161/51 (87) 84 11/21/20 03:15 104 30 158/50 (86) 86 11/21/20 03:00 112/49 11/21/20 03:00 102 27 155/50 (85) 86 11/21/20 02:30 110 30 151/53 (85) 79 11/21/20 02:00 112/29 11/21/20 02:00 101 31 100 11/21/20 02:00 96 28 109/27 (54) 91 11/21/20 01:30 102 29 137/26 (63) 88 11/21/20 01:00 95 29 113/33 (59) 85 11/21/20 01:00 120/39 11/21/20 00:30 93 28 109/27 (54) 85 11/21/20 00:00 99.3 95 28 110/25 (53) 86 11/21/20 00:00 Mechanical Ventilator 11/21/20 00:00 123/45 11/21/20 00:00 100 11/21/20 00:00 96 11/20/20 23:30 94 30 111/28 (55) 87 11/20/20 23:00 115/36 11/20/20 23:00 97 30 110/33 (58) 83 11/20/20 22:30 110 29 120/25 (56) 77 11/20/20 22:00 115/26 11/20/20 22:00 104 31 129/32 (64) 55 11/20/20 21:30 103 30 130/29 (62) 80 11/20/20 21:00 103 30 113/27 (55) 82 11/20/20 21:00 120/25 11/20/20 20:30 105 30 109/29 (55) 81 11/20/20 20:00 100 11/20/20 20:00 Mechanical Ventilator 11/20/20 20:00 110/42 11/20/20 20:00 104 11/20/20 20:00 98.8 101 28 104/27 (52) 79 11/20/20 19:46 111/26 11/20/20 19:30 105 31 122/25 (57) 88 11/20/20 19:29 86 30 100 11/20/20 19:15 93 31 111/26 (54) 88 11/20/20 19:00 86 31 65/31 (42) 89 11/20/20 19:00 65/31 11/20/20 18:45 84 32 90/35 (53) 92 11/20/20 18:30 89 32 91/30 (50) 91 11/20/20 18:00 90 32 92/33 (52) 91 11/20/20 17:30 90 33 91/35 (53) 92 11/20/20 17:00 92 33 90/32 (51) 93 11/20/20 16:30 92 31 90/32 (51) 94 11/20/20 16:00 Mechanical Ventilator 11/20/20 16:00 98.1 93 33 90/32 (51) 93 11/20/20 16:00 100 11/20/20 16:00 104 11/20/20 15:00 95 33 97/33 (54) 93 11/20/20 14:40 93 30 100 11/20/20 14:00 98 33 90/33 (52) 92 11/20/20 13:00 101 36 95/35 (55) 92 Intake and Output 11/20/20 11/21/20 19:00 07:00 Intake Total 2681.75 ml 2952.6873 ml Output Total 113 ml 185 ml Balance 2568.75 ml 2767.6873 ml Free Water 810 ml 1200 ml IV Total 1091.75 ml 972.6873 ml Tube Feeding 780 ml 780 ml Output Urine Total 113 ml 185 ml # Bowel Movements 1 General Appearance: no acute distress HEENT: normocephalic Respiratory: chest wall non-tender, lungs clear Cardiovascular: normal peripheral pulses, normal rate Abdomen: normal bowel sounds Microbiology Date/Time Source Procedure Growth Status 11/19/20 14:00 Sputum Gram Stain - Final Complete 11/19/20 14:00 Sputum Culture - Final Escherichia Coli Radha Albicans Complete Laboratory Tests 11/20/20 12:05: Random Vancomycin Level 22.8 11/20/20 14:00: Arterial Blood pH 7.215*L, Arterial Blood Partial Pressure CO2 76.3*H, Arterial Blood Partial Pressure O2 54.8L, Arterial Blood HCO3 30.2H, Arterial Blood Oxygen Saturation 83.8*L, Arterial Blood Base Excess 1.5, Jonathan Test Positive 11/20/20 19:53: POC Whole Blood Glucose [Pending] 11/20/20 23:47: POC Whole Blood Glucose 105 11/21/20 04:00: White Blood Count 20.6H, Red Blood Count 2.80L, Hemoglobin 8.6L, Hematocrit 29.2L, Mean Corpuscular Volume 104H, Mean Corpuscular Hemoglobin 30.8, Mean Corpuscular Hemoglobin Concent 29.5L, Red Cell Distribution Width 16.0H, Platelet Count 92L, Mean Platelet Volume 8.4, Neutrophils (%) (Auto) , Lymphocytes (%) (Auto) , Monocytes (%) (Auto) , Eosinophils (%) (Auto) , Basophils (%) (Auto) , Differential Total Cells Counted 100, Neutrophils % (Manu al) 93H, Lymphocytes % (Manual) 5L, Monocytes % (Manual) 2, Eosinophils % (Manual) 0, Basophils % (Manual) 0, Band Neutrophils 0, Platelet Estimate DecreasedL, Platelet Morphology Normal, Hypochromasia 1+, Anisocytosis 1+, Macrocytosis 1+, Sodium Level 152H, Potassium Level 5.2H, Chloride Level 115H, Carbon Dioxide Level 31, Anion Gap 6, Blood Urea Nitrogen 167H, Creatinine 3.0H, Estimat Glomerular Filtration Rate 20.0, Glucose Level 232#H, Calcium Level 7.6L, Phosphorus Level 6.4H, Magnesium Level 2.4, Total Bilirubin 0.9, Aspartate Amino Transf (AST/SGOT) 65H, Alanine Aminotransferase (ALT/SGPT) 61, Alkaline Phosphatase 159H, Total Protein 5.5L, Albumin 2.0L, Globulin 3.5, Albumin/Globulin Ratio 0.6L 11/21/20 08:43: Arterial Blood pH 7.190*L, Arterial Blood Partial Pressure CO2 70.7*H, Arterial Blood Partial Pressure O2 48.9*L, Arterial Blood HCO3 26.4H, Arterial Blood Oxygen Saturation 77.7*L, Arterial Blood Base Excess -2.4L, Jonathan Test Positive Current Medications Medications (Trade) Dose Ordered Sig/Violet Route PRN Reason Start Time Stop Time Status Last Admin Dose Admin Acetaminophen (Tylenol) 650 mg Q4H PRN GT Temp >100.5 11/12/20 11:00 12/12/20 10:44 11/18/20 14:55 Chlorhexidine Gluconate (Patt-Hex 2%) 1 applic DAILY@2000 TOPIC 11/17/20 20:00 02/15/21 19:59 11/20/20 19:46 Dextrose 1,000 ml @ 75 mls/hr [id number] IV 11/20/20 22:30 12/20/20 22:29 11/20/20 22:35 Dextrose (Dextrose 50%) 25 ml Q30M PRN IV Hypoglycemia 11/06/20 20:00 02/04/21 19:59 Dextrose (Dextrose 50%) 50 ml Q30M PRN IV Hypoglycemia 11/06/20 20:00 02/04/21 19:59 Docusate Sodium (Colace) 100 mg EVERY 12 HOURS GT 11/17/20 21:00 12/14/20 17:59 11/20/20 19:46 Dopamine HCl/ Dextrose 250 ml @ 0 mls/hr Q24H IV 11/19/20 19:45 11/22/20 19:35 11/20/20 19:46 Enoxaparin Sodium (Lovenox) 30 mg Q24H SUBQ 11/20/20 21:00 02/05/21 20:59 11/20/20 20:13 Flumazenil (Romazicon) 0.2 mg NEEDED PRN IV Sedation reversal 11/06/20 20:00 Furosemide 100 mg/ Dextrose 100 ml @ 10 mls/hr Q10H IV 11/20/20 22:30 12/20/20 22:29 11/21/20 09:01 Insulin Aspart (NovoLOG) EVERY 6 HOURS SUBQ 11/08/20 12:00 02/05/21 16:29 11/21/20 06:06 Insulin Detemir (Levemir) 20 units EVERY 12 HOURS SUBQ 11/19/20 21:00 02/05/21 20:59 11/21/20 10:29 Methylprednisolone Sodium Succinate (Solu-MEDROL) 40 mg EVERY 12 HOURS IVP 11/18/20 12:30 02/16/21 12:29 11/21/20 10:29 Metoclopramide HCl (Reglan) 5 mg Q6HR IVP 11/14/20 12:26 12/14/20 12:25 11/21/20 06:06 Micafungin Sodium 100 mg/Sodium Chloride 110 ml @ 110 mls/hr Q24H IVPB 11/20/20 12:00 11/27/20 11:59 11/20/20 12:12 Naloxone HCl (Narcan) 0.4 mg NEEDED PRN IVP RR less than 6/min 12/16/20 20:00 02/04/21 19:59 Norepinephrine Bitartrate 250 ml @ 0 mls/hr Q24H IV 11/18/20 19:30 11/21/20 19:28 11/19/20 04:56 Ondansetron HCl (Zofran) 4 mg Q6H PRN IVP Nausea & Vomiting 11/06/20 20:00 12/06/20 19:59 Pantoprazole (Protonix) 40 mg DAILY IVP 11/08/20 09:00 12/08/20 08:59 11/21/20 10:28 Piperacillin Sod/ Tazobactam Sod 3.375 gm/Sodium Chloride 110 ml @ 27.5 mls/hr Q8HR IVPB 11/17/20 22:00 11/24/20 21:59 11/21/20 06:06 Polyethylene Glycol (Miralax) 17 gm BEDTIME GT 11/14/20 21:00 12/14/20 20:59 11/20/20 19:46 Assessment/Plan Assessment/Plan IMPRESSION: 1. COVID-19 pneumonia. 2. Diabetes mellitus. 3. Hypertension. 4. Hyperkalemia. 5. CKD. 6. Metabolic acidosis. 7. Respiratory Failure; Acute Lung Injury 9. AMS; very poorly responsive DISCUSSION: Continue broad-spectrum antibiotics. Continue vent/AC mode Currently FiO2 100%; Will increase rate and volumes given resp acidosis PEEP decreased to 10 Endo tracheal tube adjusted; pt holding volumes on vent now Had to be repositioned CXR shows fine appearing interstitial infiltrates Suspect either secondary infection or fluid Will continue Micafungin and Vanco Agree with HD DC Lasix gtt Start D5W given hypernatremia Blood sugar control, Continue Decadron. Off propofol Check labs and ABG AM CXR unchanged Noted neurology evaluation Jud Werner Omar Syed MD Nov 21, 2020 12:03
[2020-11-21] MEDS: Micafungin 100 MG in NS 110 ML IVPB SCH (12:54)
--- NOTE | 2020-11-21 13:08 | Pulmonology Progress Note ---
Subjective ROS Limited/Unobtainable: Yes Interval Events: SDialysis attempted yesterday; remains intubated Constitutional: Reports: no symptoms HEENT: Repors: no symptoms Respiratory: Reports: no symptoms Cardiovascular: Reports: no symptoms Gastrointestinal/Abdominal: Reports: no symptoms Genitourinary: Reports: no symptoms Allergies: Coded Allergies: No Known Allergies (Unverified , 11/06/20) Objective Last 24 Hour Vital Signs Date Time Temp Pulse Resp B/P (MAP) Pulse Ox O2 Delivery O2 Flow Rate FiO2 11/21/20 12:00 100 11/21/20 12:00 102 32 101/37 (58) 92 11/21/20 11:00 100 31 108/36 (60) 82 11/21/20 10:00 97 33 100/36 (57) 81 11/21/20 09:30 99 32 108/37 (60) 81 11/21/20 09:00 100 32 103/41 (61) 83 11/21/20 08:30 100 32 107/38 (61) 83 11/21/20 08:00 Mechanical Ventilator 11/21/20 08:00 91 32 110/38 (62) 84 11/21/20 08:00 100 11/21/20 08:00 91 11/21/20 07:30 91 33 109/41 (63) 83 11/21/20 07:25 90 34 100 11/21/20 07:00 109/41 11/21/20 07:00 91 33 109/41 (63) 80 11/21/20 06:00 110/45 11/21/20 06:00 89 31 116/46 (69) 79 11/21/20 05:30 97 31 123/53 (76) 79 11/21/20 05:00 96 31 123/38 (66) 79 11/21/20 05:00 105/30 11/21/20 04:30 92 30 126/39 (68) 75 11/21/20 04:15 95 29 111/42 (65) 70 11/21/20 04:00 98.5 95 28 110/43 (65) 57 11/21/20 04:00 100 11/21/20 04:00 92 11/21/20 04:00 Mechanical Ventilator 11/21/20 04:00 133/38 11/21/20 03:45 93 26 103/43 (63) 77 11/21/20 03:30 105 29 161/51 (87) 84 11/21/20 03:15 104 30 158/50 (86) 86 11/21/20 03:00 112/49 11/21/20 03:00 102 27 155/50 (85) 86 11/21/20 02:30 110 30 151/53 (85) 79 11/21/20 02:00 112/29 11/21/20 02:00 101 31 100 11/21/20 02:00 96 28 109/27 (54) 91 11/21/20 01:30 102 29 137/26 (63) 88 11/21/20 01:00 95 29 113/33 (59) 85 11/21/20 01:00 120/39 11/21/20 00:30 93 28 109/27 (54) 85 11/21/20 00:00 99.3 95 28 110/25 (53) 86 11/21/20 00:00 Mechanical Ventilator 11/21/20 00:00 123/45 11/21/20 00:00 100 11/21/20 00:00 96 11/20/20 23:30 94 30 111/28 (55) 87 11/20/20 23:00 115/36 11/20/20 23:00 97 30 110/33 (58) 83 11/20/20 22:30 110 29 120/25 (56) 77 11/20/20 22:00 115/26 11/20/20 22:00 104 31 129/32 (64) 55 11/20/20 21:30 103 30 130/29 (62) 80 11/20/20 21:00 103 30 113/27 (55) 82 11/20/20 21:00 120/25 11/20/20 20:30 105 30 109/29 (55) 81 11/20/20 20:00 100 11/20/20 20:00 Mechanical Ventilator 11/20/20 20:00 110/42 11/20/20 20:00 104 11/20/20 20:00 98.8 101 28 104/27 (52) 79 11/20/20 19:46 111/26 11/20/20 19:30 105 31 122/25 (57) 88 11/20/20 19:29 86 30 100 11/20/20 19:15 93 31 111/26 (54) 88 11/20/20 19:00 86 31 65/31 (42) 89 11/20/20 19:00 65/31 11/20/20 18:45 84 32 90/35 (53) 92 11/20/20 18:30 89 32 91/30 (50) 91 11/20/20 18:00 90 32 92/33 (52) 91 11/20/20 17:30 90 33 91/35 (53) 92 11/20/20 17:00 92 33 90/32 (51) 93 11/20/20 16:30 92 31 90/32 (51) 94 11/20/20 16:00 Mechanical Ventilator 11/20/20 16:00 98.1 93 33 90/32 (51) 93 11/20/20 16:00 100 11/20/20 16:00 104 11/20/20 15:00 95 33 97/33 (54) 93 11/20/20 14:40 93 30 100 11/20/20 14:00 98 33 90/33 (52) 92 Intake and Output 11/20/20 11/21/20 19:00 07:00 Intake Total 2681.75 ml 2952.6873 ml Output Total 113 ml 185 ml Balance 2568.75 ml 2767.6873 ml Free Water 810 ml 1200 ml IV Total 1091.75 ml 972.6873 ml Tube Feeding 780 ml 780 ml Output Urine Total 113 ml 185 ml # Bowel Movements 1 General Appearance: no acute distress HEENT: normocephalic Respiratory: chest wall non-tender, lungs clear Cardiovascular: normal peripheral pulses, normal rate Abdomen: normal bowel sounds Microbiology Date/Time Source Procedure Growth Status 11/19/20 14:00 Sputum Gram Stain - Final Complete 11/19/20 14:00 Sputum Culture - Final Escherichia Coli Radha Albicans Complete Laboratory Tests 11/20/20 14:00: Arterial Blood pH 7.215*L, Arterial Blood Partial Pressure CO2 76.3*H, Arterial Blood Partial Pressure O2 54.8L, Arterial Blood HCO3 30.2H, Arterial Blood Oxygen Saturation 83.8*L, Arterial Blood Base Excess 1.5, Jonathan Test Positive 11/20/20 19:53: POC Whole Blood Glucose [Pending] 11/20/20 23:47: POC Whole Blood Glucose 105 11/21/20 04:00: White Blood Count 20.6H, Red Blood Count 2.80L, Hemoglobin 8.6L, Hematocrit 29.2L, Mean Corpuscular Volume 104H, Mean Corpuscular Hemoglobin 30.8, Mean Corpuscular Hemoglobin Concent 29.5L, Red Cell Distribution Width 16.0H, Platelet Count 92L, Mean Platelet Volume 8.4, Neutrophils (%) (Auto) , Lymphocytes (%) (Auto) , Monocytes (%) (Auto) , Eosinophils (%) (Auto) , Basophils (%) (Auto) , Differential Total Cells Counted 100, Neutrophils % (Manual) 93H, Lymphocytes % (Manual) 5L, Monocytes % (Manual) 2, Eosinophils % (Manual) 0, Basophils % (Manual) 0, Band Neutrophils 0, Platelet Estimate DecreasedL, Platelet Morphology Normal, Hypochromasia 1+, Anisocytosis 1+, Macrocytosis 1+, Sodium Level 152H, Potassium Level 5.2H, Chloride Level 115H, Carbon Dioxide Level 31, Anion Gap 6, Blood Urea Nitrogen 167H, Creatinine 3.0H, Estimat Glomerular Filtration Rate 20.0, Glucose Level 232#H, Calcium Level 7.6L, Phosphorus Level 6.4H, Magnesium Level 2.4, Total Bilirubin 0.9, Aspartate Amino Transf (AST/SGOT) 65H, Alanine Aminotransferase (ALT/SGPT) 61, Alkaline Phosphatase 159H, Total Protein 5.5L, Albumin 2.0L, Globulin 3.5, Albumin/Globulin Ratio 0.6L 11/21/20 08:43: Arterial Blood pH 7.190*L, Arterial Blood Partial Pressure CO2 70.7*H, Arterial Blood Partial Pressure O2 48.9*L, Arterial Blood HCO3 26.4H, Arterial Blood Oxygen Saturation 77.7*L, Arterial Blood Base Excess -2.4L, Jonathan Test Positive Current Medications Medications (Trade) Dose Ordered Sig/Violet Route PRN Reason Start Time Stop Time Status Last Admin Dose Admin Acetaminophen (Tylenol) 650 mg Q4H PRN GT Temp >100.5 11/12/20 11:00 12/12/20 10:44 11/18/20 14:55 Chlorhexidine Gluconate (Patt-Hex 2%) 1 applic DAILY@1999 TOPIC 11/17/20 20:00 02/15/21 19:59 11/20/20 19:46 Dextrose 1,000 ml @ 75 mls/hr [id number] IV 11/20/20 22:30 12/20/20 22:29 11/20/20 22:35 Dextrose (Dextrose 50%) 25 ml Q30M PRN IV Hypoglycemia 11/06/20 20:00 02/04/21 19:59 Dextrose (Dextrose 50%) 50 ml Q30M PRN IV Hypoglycemia 11/06/20 20:00 02/04/21 19:59 Docusate Sodium (Colace) 100 mg EVERY 12 HOURS GT 11/17/20 21:00 12/14/20 17:59 11/20/20 19:46 Dopamine HCl/ Dextrose 250 ml @ 0 mls/hr Q24H IV 11/19/20 19:45 11/22/20 19:35 11/20/20 19:46 Enoxaparin Sodium (Lovenox) 30 mg Q24H SUBQ 11/20/20 21:00 02/05/21 20:59 11/20/20 20:13 Flumazenil (Romazicon) 0.2 mg NEEDED PRN IV Sedation reversal 11/06/20 20:00 Insulin Aspart (NovoLOG) EVERY 6 HOURS SUBQ 11/08/20 12:00 02/05/21 16:29 11/21/20 06:06 Insulin Detemir (Levemir) 20 units EVERY 12 HOURS SUBQ 11/19/20 21:00 02/05/21 20:59 11/21/20 10:29 Methylprednisolone Sodium Succinate (Solu-MEDROL) 40 mg EVERY 12 HOURS IVP 11/18/20 12:30 02/16/21 12:29 11/21/20 10:29 Metoclopramide HCl (Reglan) 5 mg Q6HR IVP 11/14/20 12:26 12/14/20 12:25 11/21/20 12:54 Micafungin Sodium 100 mg/Sodium Chloride 110 ml @ 110 mls/hr Q24H IVPB 11/20/20 12:00 11/27/20 11:59 11/21/20 12:54 Naloxone HCl (Narcan) 0.4 mg NEEDED PRN IVP RR less than 6/min 11/06/20 20:00 02/04/21 19:59 Norepinephrine Bitartrate 250 ml @ 0 mls/hr Q24H IV 11/18/20 19:30 11/21/20 19:28 11/19/20 04:56 Ondansetron HCl (Zofran) 4 mg Q6H PRN IVP Nausea & Vomiting 11/06/20 20:00 12/06/20 19:59 Pantoprazole (Protonix) 40 mg DAILY IVP 11/08/20 09:00 12/08/20 08:59 11/21/20 10:28 Piperacillin Sod/ Tazobactam Sod 3.375 gm/Sodium Chloride 110 ml @ 27.5 mls/hr Q8HR IVPB 11/17/20 22:00 11/24/20 21:59 11/21/20 12:55 Polyethylene Glycol (Miralax) 17 gm BEDTIME GT 11/14/20 21:00 12/14/20 20:59 11/20/20 19:46 Assessment/Plan Assessment/Plan IMPRESSION: 1. COVID-19 pneumonia. 2. Diabetes mellitus. 3. Hypertension. 4. Hyperkalemia. 5. CKD. 6. Metabolic acidosis. 7. Respiratory Failure; Acute Lung Injury 9. AMS; very poorly responsive DISCUSSION: Continue broad-spectrum antibiotics. Continue vent/AC mode Currently FiO2 100%; Continue current terri and volumes ABG ereviewed; has combined respiratory and metabolic acidosis PEEP decreased to 10 Endo tracheal tube adjusted; pt holding volumes on vent now Had to be repositioned CXR shows fine appearing interstitial infiltrates Suspect either secondary infection or fluid Will continue Micafungin and Vanco Agree with HD DC Lasix gtt Start D5W given hypernatremia Blood sugar control, Continue Decadron. Off propofol Check labs and ABG AM CXR unchanged Noted neurology evaluation Jud Werner Omar Syed MD Nov 21, 2020 13:08
--- NOTE | 2020-11-21 13:23 | Infectious Diseases Prog Note ---
Assessment/Plan Assessment/Plan A: 1. COVID-19 pneumonia. 2. Positive blood culture likely contamination 3. Respiratory failure with hypoxia 4. Diabetes. 5. Hypertension. 6. Renal failure. 7. Acidosis 8. E.coli pneumonmia PLAN: 1. Finished remdesivir course 2. Continue Solu-Medrol 3. Change Zosyn to Rocephin 4. Change Micafungin to Fluconazole Subjective ROS Limited/Unobtainable: Yes Constitutional: Denies: fever Allergies: Coded Allergies: No Known Allergies (Unverified , 11/06/20) Objective Last 24 Hour Vital Signs Date Time Temp Pulse Resp B/P (MAP) Pulse Ox O2 Delivery O2 Flow Rate FiO2 11/21/20 12:00 100 11/21/20 12:00 102 32 101/37 (58) 92 11/21/20 11:00 100 31 108/36 (60) 82 11/21/20 10:00 97 33 100/36 (57) 81 11/21/20 09:30 99 32 108/37 (60) 81 11/21/20 09:00 100 32 103/41 (61) 83 11/21/20 08:30 100 32 107/38 (61) 83 11/21/20 08:00 Mechanical Ventilator 11/21/20 08:00 91 32 110/38 (62) 84 11/21/20 08:00 100 11/21/20 08:00 91 11/21/20 07:30 91 33 109/41 (63) 83 11/21/20 07:25 90 34 100 11/21/20 07:00 109/41 11/21/20 07:00 91 33 109/41 (63) 80 11/21/20 06:00 110/45 11/21/20 06:00 89 31 116/46 (69) 79 11/21/20 05:30 97 31 123/53 (76) 79 11/21/20 05:00 96 31 123/38 (66) 79 11/21/20 05:00 105/30 11/21/20 04:30 92 30 126/39 (68) 75 11/21/20 04:15 95 29 111/42 (65) 70 11/21/20 04:00 98.5 95 28 110/43 (65) 57 11/21/20 04:00 100 11/21/20 04:00 92 11/21/20 04:00 Mechanical Ventilator 11/21/20 04:00 133/38 11/21/20 03:45 93 26 103/43 (63) 77 11/21/20 03:30 105 29 161/51 (87) 84 11/21/20 03:15 104 30 158/50 (86) 86 11/21/20 03:00 112/49 11/21/20 03:00 102 27 155/50 (85) 86 11/21/20 02:30 110 30 151/53 (85) 79 11/21/20 02:00 112/29 11/21/20 02:00 101 31 100 11/21/20 02:00 96 28 109/27 (54) 91 11/21/20 01:30 102 29 137/26 (63) 88 11/21/20 01:00 95 29 113/33 (59) 85 11/21/20 01:00 120/39 11/21/20 00:30 93 28 109/27 (54) 85 11/21/20 00:00 99.3 95 28 110/25 (53) 86 11/21/20 00:00 Mechanical Ventilator 11/21/20 00:00 123/45 11/21/20 00:00 100 11/21/20 00:00 96 11/20/20 23:30 94 30 111/28 (55) 87 11/20/20 23:00 115/36 11/20/20 23:00 97 30 110/33 (58) 83 11/20/20 22:30 110 29 120/25 (56) 77 11/20/20 22:00 115/26 11/20/20 22:00 104 31 129/32 (64) 55 11/20/20 21:30 103 30 130/29 (62) 80 11/20/20 21:00 103 30 113/27 (55) 82 11/20/20 21:00 120/25 11/20/20 20:30 105 30 109/29 (55) 81 11/20/20 20:00 100 11/20/20 20:00 Mechanical Ventilator 11/20/20 20:00 110/42 11/20/20 20:00 104 11/20/20 20:00 98.8 101 28 104/27 (52) 79 12/30/20 19:46 111/26 11/20/20 19:30 105 31 122/25 (57) 88 11/20/20 19:29 86 30 100 11/20/20 19:15 93 31 111/26 (54) 88 11/20/20 19:00 86 31 65/31 (42) 89 11/20/20 19:00 65/31 11/20/20 18:45 84 32 90/35 (53) 92 11/20/20 18:30 89 32 91/30 (50) 91 11/20/20 18:00 90 32 92/33 (52) 91 11/20/20 17:30 90 33 91/35 (53) 92 11/20/20 17:00 92 33 90/32 (51) 93 11/20/20 16:30 92 31 90/32 (51) 94 11/20/20 16:00 Mechanical Ventilator 11/20/20 16:00 98.1 93 33 90/32 (51) 93 11/20/20 16:00 100 11/20/20 16:00 104 11/20/20 15:00 95 33 97/33 (54) 93 11/20/20 14:40 93 30 100 11/20/20 14:00 98 33 90/33 (52) 92 Height (Feet): 6 Height (Inches): 1.00 Weight (Pounds): 190 HEENT: mucous membranes moist Respiratory/Chest: other - orally intubated on ventilator Cardiovascular: tachycardia Abdomen: soft, non tender, other - orogastric tube Neurologic/Psychiatric: aphasia Microbiology Date/Time Source Procedure Growth Status 11/19/20 14:00 Sputum Gram Stain - Final Complete 11/19/20 14:00 Sputum Culture - Final Escherichia Coli Radha Albicans Complete Laboratory Tests Test 11/20/20 14:00 11/20/20 19:53 11/20/20 23:47 11/21/20 04:00 Arterial Blood pH 7.215 (7.350-7.450) Arterial Blood Partial Pressure CO2 76.3 mmHg (35.0-45.0) *H Arterial Blood Partial Pressure O2 54.8 mmHg (75.0-100.0) L Arterial Blood HCO3 30.2 mmol/L (22.0-26.0) H Arterial Blood Oxygen Saturation 83.8 % (95-100) *L Arterial Blood Base Excess 1.5 (-2-2) Jonathan Test Positive POC Whole Blood Glucose Pending 105 MG/DL (74-106) White Blood Count 20.6 K/UL (4.8-10.8) H Red Blood Count 2.80 M/UL (4.70-6.10) L Hemoglobin 8.6 G/DL (14.2-18.0) L Hematocrit 29.2 % (42.0-52.0) L Mean Corpuscular Volume 104 FL (80-99) H Mean Corpuscular Hemoglobin 30.8 PG (27.0-31.0) Mean Corpuscular Hemoglobin Concent 29.5 G/DL (32.0-36.0) L Red Cell Distribution Width 16.0 % (11.6-14.8) H Platelet Count 92 K/UL (150-450) L Mean Platelet Volume 8.4 FL (6.5-10.1) Neutrophils (%) (Auto) % (45.0-75.0) Lymphocytes (%) (Auto) % (20.0-45.0) Monocytes (%) (Auto) % (1.0-10.0) Eosinophils (%) (Auto) % (0.0-3.0) Basophils (%) (Auto) % (0.0-2.0) Differential Total Cells Counted 100 Neutrophils % (Manual) 93 % (45-75) H Lymphocytes % (Manual) 5 % (20-45) L Monocytes % (Manual) 2 % (1-10) Eosinophils % (Manual) 0 % (0-3) Basophils % (Manual) 0 % (0-2) Band Neutrophils 0 % (0-8) Platelet Estimate Decreased L Platelet Morphology Normal Hypochromasia 1+ Anisocytosis 1+ Macrocytosis 1+ Sodium Level 152 MMOL/L (136-145) H Potassium Level 5.2 MMOL/L (3.5-5.1) H Chloride Level 115 MMOL/L (98-107) H Carbon Dioxide Level 31 MMOL/L (21-32) Anion Gap 6 mmol/L (5-15) Blood Urea Nitrogen 167 mg/dL (7-18) H Creatinine 3.0 MG/DL (0.55-1.30) H Estimat Glomerular Filtration Rate 20.0 mL/min (>60) Glucose Level 232 MG/DL (74-106) #H Calcium Level 7.6 MG/DL (8.5-10.1) L Phosphorus Level 6.4 MG/DL (2.5-4.9) H Magnesium Level 2.4 MG/DL (1.8-2.4) Total Bilirubin 0.9 MG/DL (0.2-1.0) Aspartate Amino Transf (AST/SGOT) 65 U/L (15-37) H Alanine Aminotransferase (ALT/SGPT) 61 U/L (12-78) Alkaline Phosphatase 159 U/L (46-116) H Total Protein 5.5 G/DL (6.4-8.2) L Albumin 2.0 G/DL (3.4-5.0) L Globulin 3.5 g/dL Albumin/Globulin Ratio 0.6 (1.0-2.7) L Test 11/21/20 08:43 Arterial Blood pH 7.190 (7.350-7.450) Arterial Blood Partial Pressure CO2 70.7 mmHg (35.0-45.0) *H Arterial Blood Partial Pressure O2 48.9 mmHg (75.0-100.0) Arterial Blood HCO3 26.4 mmol/L (22.0-26.0) H Arterial Blood Oxygen Saturation 77.7 % (95-100) *L Arterial Blood Base Excess -2.4 (-2-2) L Jonathan Test Positive Current Medications Medications (Trade) Dose Ordered Sig/Violet Route PRN Reason Start Time Stop Time Status Last Admin Dose Admin Acetaminophen (Tylenol) 650 mg Q4H PRN GT Temp >100.5 11/12/20 11:00 12/12/20 10:44 11/18/20 14:55 Chlorhexidine Gluconate (Patt-Hex 2%) 1 applic DAILY@2000 TOPIC 11/17/20 20:00 02/15/21 19:59 11/20/20 19:46 Dextrose 1,000 ml @ 75 mls/hr [id number] IV 11/20/20 22:30 12/20/20 22:29 11/20/20 22:35 Dextrose (Dextrose 50%) 25 ml Q30M PRN IV Hypoglycemia 11/06/20 20:00 02/04/21 19:59 Dextrose (Dextrose 50%) 50 ml Q30M PRN IV Hypoglycemia 11/06/20 20:00 02/04/21 19:59 Docusate Sodium (Colace) 100 mg EVERY 12 HOURS GT 11/17/20 21:00 12/14/20 17:59 11/20/20 19:46 Dopamine HCl/ Dextrose 250 ml @ 0 mls/hr Q24H IV 11/19/20 19:45 11/22/20 19:35 11/20/20 19:46 Enoxaparin Sodium (Lovenox) 30 mg Q24H SUBQ 11/20/20 21:00 02/05/21 20:59 11/20/20 20:13 Flumazenil (Romazicon) 0.2 mg NEEDED PRN IV Sedation reversal 11/06/20 20:00 Insulin Aspart (NovoLOG) EVERY 6 HOURS SUBQ 11/08/20 12:00 02/05/21 16:29 11/21/20 13:11 Insulin Detemir (Levemir) 20 units EVERY 12 HOURS SUBQ 11/19/20 21:00 02/05/21 20:59 11/21/20 10:29 Methylprednisolone Sodium Succinate (Solu-MEDROL) 40 mg EVERY 12 HOURS IVP 11/18/20 12:30 02/16/21 12:29 11/21/20 10:29 Metoclopramide HCl (Reglan) 5 mg Q6HR IVP 11/14/20 12:26 12/14/20 12:25 11/21/20 12:54 Micafungin Sodium 100 mg/Sodium Chloride 110 ml @ 110 mls/hr Q24H IVPB 11/20/20 12:00 11/27/20 11:59 11/21/20 12:54 Naloxone HCl (Narcan) 0.4 mg NEEDED PRN IVP RR less than 6/min 11/06/20 20:00 02/04/21 19:59 Norepinephrine Bitartrate 250 ml @ 0 mls/hr Q24H IV 11/18/20 19:30 11/21/20 19:28 11/19/20 04:56 Ondansetron HCl (Zofran) 4 mg Q6H PRN IVP Nausea & Vomiting 11/06/20 20:00 12/06/20 19:59 Pantoprazole (Protonix) 40 mg DAILY IVP 11/08/20 09:00 12/08/20 08:59 11/21/20 10:28 Piperacillin Sod/ Tazobactam Sod 3.375 gm/Sodium Chloride 110 ml @ 27.5 mls/hr Q8HR IVPB 11/17/20 22:00 11/24/20 21:59 11/21/20 12:55 Polyethylene Glycol (Miralax) 17 gm BEDTIME GT 11/14/20 21:00 12/14/20 20:59 11/20/20 19:46 Karson Cabrera MD Nov 21, 2020 13:23
--- NOTE | 2020-11-21 13:24 | General Progress Note ---
Subjective ROS Limited/Unobtainable: No Allergies: Coded Allergies: No Known Allergies (Unverified , 11/06/20) Objective Last 24 Hour Vital Signs Date Time Temp Pulse Resp B/P (MAP) Pulse Ox O2 Delivery O2 Flow Rate FiO2 11/21/20 12:00 100 11/21/20 12:00 102 32 101/37 (58) 92 11/21/20 11:00 100 31 108/36 (60) 82 11/21/20 10:00 97 33 100/36 (57) 81 11/21/20 09:30 99 32 108/37 (60) 81 11/21/20 09:00 100 32 103/41 (61) 83 11/21/20 08:30 100 32 107/38 (61) 83 11/21/20 08:00 Mechanical Ventilator 11/21/20 08:00 91 32 110/38 (62) 84 11/21/20 08:00 100 11/21/20 08:00 91 11/21/20 07:30 91 33 109/41 (63) 83 11/21/20 07:25 90 34 100 11/21/20 07:00 109/41 11/21/20 07:00 91 33 109/41 (63) 80 11/21/20 06:00 110/45 11/21/20 06:00 89 31 116/46 (69) 79 11/21/20 05:30 97 31 123/53 (76) 79 11/21/20 05:00 96 31 123/38 (66) 79 11/21/20 05:00 105/30 11/21/20 04:30 92 30 126/39 (68) 75 11/21/20 04:15 95 29 111/42 (65) 70 11/21/20 04:00 98.5 95 28 110/43 (65) 57 11/21/20 04:00 100 11/21/20 04:00 92 11/21/20 04:00 Mechanical Ventilator 11/21/20 04:00 133/38 11/21/20 03:45 93 26 103/43 (63) 77 11/21/20 03:30 105 29 161/51 (87) 84 11/21/20 03:15 104 30 158/50 (86) 86 11/21/20 03:00 112/49 11/21/20 03:00 102 27 155/50 (85) 86 11/21/20 02:30 110 30 151/53 (85) 79 11/21/20 02:00 112/29 11/21/20 02:00 101 31 100 11/21/20 02:00 96 28 109/27 (54) 91 11/21/20 01:30 102 29 137/26 (63) 88 11/21/20 01:00 95 29 113/33 (59) 85 11/21/20 01:00 120/39 11/21/20 00:30 93 28 109/27 (54) 85 11/21/20 00:00 99.3 95 28 110/25 (53) 86 11/21/20 00:00 Mechanical Ventilator 11/21/20 00:00 123/45 11/21/20 00:00 100 11/21/20 00:00 96 11/20/20 23:30 94 30 111/28 (55) 87 11/20/20 23:00 115/36 11/20/20 23:00 97 30 110/33 (58) 83 11/20/20 22:30 110 29 120/25 (56) 77 11/20/20 22:00 115/26 11/20/20 22:00 104 31 129/32 (64) 55 11/20/20 21:30 103 30 130/29 (62) 80 11/20/20 21:00 103 30 113/27 (55) 82 11/20/20 21:00 120/25 11/20/20 20:30 105 30 109/29 (55) 81 11/20/20 20:00 100 11/20/20 20:00 Mechanical Ventilator 11/20/20 20:00 110/42 11/20/20 20:00 104 11/20/20 20:00 98.8 101 28 104/27 (52) 79 11/20/20 19:46 111/26 11/20/20 19:30 105 31 122/25 (57) 88 11/20/20 19:29 86 30 100 11/20/20 19:15 93 31 111/26 (54) 88 11/20/20 19:00 86 31 65/31 (42) 89 11/20/20 19:00 65/31 11/20/20 18:45 84 32 90/35 (53) 92 11/20/20 18:30 89 32 91/30 (50) 91 11/20/20 18:00 90 32 92/33 (52) 91 11/20/20 17:30 90 33 91/35 (53) 92 11/20/20 17:00 92 33 90/32 (51) 93 11/20/20 16:30 92 31 90/32 (51) 94 11/20/20 16:00 Mechanical Ventilator 11/20/20 16:00 98.1 93 33 90/32 (51) 93 11/20/20 16:00 100 11/20/20 16:00 104 11/20/20 15:00 95 33 97/33 (54) 93 11/20/20 14:40 93 30 100 11/20/20 14:00 98 33 90/33 (52) 92 Intake and Output 11/20/20 11/21/20 19:00 07:00 Intake Total 2681.75 ml 2952.6873 ml Output Total 113 ml 185 ml Balance 2568.75 ml 2767.6873 ml Free Water 810 ml 1200 ml IV Total 1091.75 ml 972.6873 ml Tube Feeding 780 ml 780 ml Output Urine Total 113 ml 185 ml # Bowel Movements 1 Laboratory Tests 11/20/20 14:00: Arterial Blood pH 7.215*L, Arterial Blood Partial Pressure CO2 76.3*H, Arterial Blood Partial Pressure O2 54.8L, Arterial Blood HCO3 30.2H, Arterial Blood Oxygen Saturation 83.8*L, Arterial Blood Base Excess 1.5, Jonathan Test Positive 11/20/20 19:53: POC Whole Blood Glucose [Pending] 11/20/20 23:47: POC Whole Blood Glucose 105 11/21/20 04:00: White Blood Count 20.6H, Red Blood Count 2.80L, Hemoglobin 8.6L, Hematocrit 29.2L, Mean Corpuscular Volume 104H, Mean Corpuscular Hemoglobin 30.8, Mean Corpuscular Hemoglobin Concent 29.5L, Red Cell Distribution Width 16.0H, Platelet Count 92L, Mean Platelet Volume 8.4, Neutrophils (%) (Auto) , Lymphocytes (%) (Auto) , Monocytes (%) (Auto) , Eosinophils (%) (Auto) , Basophils (%) (Auto) , Differential Total Cells Counted 100, Neutrophils % (Manual) 93H, Lymphocytes % (Manual) 5L, Monocytes % (Manual) 2, Eosinophils % (Manual) 0, Basophils % (Manual) 0, Band Neutrophils 0, Platelet Estimate DecreasedL, Platelet Morphology Normal, Hypochromasia 1+, Anisocytosis 1+, Mac rocytosis 1+, Sodium Level 152H, Potassium Level 5.2H, Chloride Level 115H, Carbon Dioxide Level 31, Anion Gap 6, Blood Urea Nitrogen 167H, Creatinine 3.0H, Estimat Glomerular Filtration Rate 20.0, Glucose Level 232#H, Calcium Level 7.6L, Phosphorus Level 6.4H, Magnesium Level 2.4, Total Bilirubin 0.9, Aspartate Amino Transf (AST/SGOT) 65H, Alanine Aminotransferase (ALT/SGPT) 61, Alkaline Phosphatase 159H, Total Protein 5.5L, Albumin 2.0L, Globulin 3.5, Albumin/Globulin Ratio 0.6L 11/21/20 08:43: Arterial Blood pH 7.190*L, Arterial Blood Partial Pressure CO2 70.7*H, Arterial Blood Partial Pressure O2 48.9*L, Arterial Blood HCO3 26.4H, Arterial Blood Oxygen Saturation 77.7*L, Arterial Blood Base Excess -2.4L, Jonathan Test Positive Height (Feet): 6 Height (Inches): 1.00 Weight (Pounds): 190 General Appearance: no apparent distress EENT: normal ENT inspection Neck: supple Cardiovascular: normal rate Respiratory/Chest: decreased breath sounds Abdomen: normal bowel sounds, non tender, soft Extremities: non-tender Assessment/Plan Problem List: (1) COVID-19 ICD Codes: U07.1 - COVID-19 SNOMED: 172999222 (2) Elevated troponin ICD Codes: R77.8 - Other specified abnormalities of plasma proteins SNOMED: 380495857, 844415735, [id number] (3) Renal failure ICD Codes: N19 - Unspecified kidney failure SNOMED: 81645198, 16678024 (4) Hypoxemia ICD Codes: R09.02 - Hypoxemia SNOMED: 169948327, 21702632 (5) ARDS (adult respiratory distress syndrome) ICD Codes: J80 - Acute respiratory distress syndrome SNOMED: 64924325, 91658025 Status: stable Assessment/Plan: GTF running reglan labs icu care covid isolation poor prognosis on pressor drop in H&H without active bleed TF running Benoit Saavedra MD Nov 21, 2020 13:24
[2020-11-21] MEDS: Fluconazole 100mg tab GT SCH (13:30)
[2020-11-21] MEDS: cefTRIAXone 1 GM in D5W 55 ML IVPB SCH (14:00)
--- NOTE | 2020-11-21 14:00 | NUR ---
NURSE NOTES: Order noted for hemodialysis treatment for today by Dr. Hong. [facility] nephrology was contacted, spoke with Minoo.
--- NOTE | 2020-11-21 14:37 | NUR ---
[employer] SI: Respiratory Failure, ETT/Vent Support T 98.5, HR 94, RR 33, BP 111/41 AC 18, PEEP 10, TV 450, FiO2 100, O2 sat 83% WBC 20.6, Na+ 152, K+5.2, Cxray Pneumothorax, Bilateral lung conslidations, probable small left pleural effusion IS: Ceftriaxone IV Lasix IV Lovenox SQ Micafungin IV Dopamine IV Norepinepherine IV Solu Medrol IV Piperacillin/Tazobactam ICU Status
--- NOTE | 2020-11-21 14:40 | Surgery Progress Note ---
Surgery Progress Note Subjective Procedure Performed Right femoral temp HD catheter insertion Additional Comments leukocytosis anemia plt trending down no active bleeding cr worsening line okay Objective Last 24 Hour Vital Signs Date Time Temp Pulse Resp B/P (MAP) Pulse Ox O2 Delivery O2 Flow Rate FiO2 11/21/20 14:00 94 33 111/41 (64) 84 11/21/20 13:30 90 35 100/39 (59) 85 11/21/20 13:00 102 32 100/39 (59) 84 11/21/20 12:30 101 31 104/38 (60) 83 11/21/20 12:00 100 11/21/20 12:00 Mechanical Ventilator 11/21/20 12:00 102 32 101/37 (58) 92 11/21/20 12:00 100 11/21/20 11:00 100 31 108/36 (60) 82 11/21/20 10:00 97 33 100/36 (57) 81 11/21/20 09:30 99 32 108/37 (60) 81 11/21/20 09:00 100 32 103/41 (61) 83 11/21/20 08:30 100 32 107/38 (61) 83 11/21/20 08:00 Mechanical Ventilator 11/21/20 08:00 91 32 110/38 (62) 84 11/21/20 08:00 100 11/21/20 08:00 91 11/21/20 07:30 91 33 109/41 (63) 83 11/21/20 07:25 90 34 100 11/21/20 07:00 109/41 11/21/20 07:00 91 33 109/41 (63) 80 11/21/20 06:00 110/45 11/21/20 06:00 89 31 116/46 (69) 79 11/21/20 05:30 97 31 123/53 (76) 79 11/21/20 05:00 96 31 123/38 (66) 79 11/21/20 05:00 105/30 11/21/20 04:30 92 30 126/39 (68) 75 11/21/20 04:15 95 29 111/42 (65) 70 11/21/20 04:00 98.5 95 28 110/43 (65) 57 11/21/20 04:00 100 11/21/20 04:00 92 11/21/20 04:00 Mechanical Ventilator 11/21/20 04:00 133/38 11/21/20 03:45 93 26 103/43 (63) 77 11/21/20 03:30 105 29 161/51 (87) 84 11/21/20 03:15 104 30 158/50 (86) 86 11/21/20 03:00 112/49 11/21/20 03:00 102 27 155/50 (85) 86 11/21/20 02:30 110 30 151/53 (85) 79 11/21/20 02:00 112/29 11/21/20 02:00 101 31 100 11/21/20 02:00 96 28 109/27 (54) 91 11/21/20 01:30 102 29 137/26 (63) 88 11/21/20 01:00 95 29 113/33 (59) 85 11/21/20 01:00 120/39 11/21/20 00:30 93 28 109/27 (54) 85 11/21/20 00:00 99.3 95 28 110/25 (53) 86 11/21/20 00:00 Mechanical Ventilator 11/21/20 00:00 123/45 11/21/20 00:00 100 11/21/20 00:00 96 11/20/20 23:30 94 30 111/28 (55) 87 11/20/20 23:00 115/36 11/20/20 23:00 97 30 110/33 (58) 83 11/20/20 22:30 110 29 120/25 (56) 77 11/20/20 22:00 115/26 11/20/20 22:00 104 31 129/32 (64) 55 11/20/20 21:30 103 30 130/29 (62) 80 11/20/20 21:00 103 30 113/27 (55) 82 11/20/20 21:00 120/25 11/20/20 20:30 105 30 109/29 (55) 81 11/20/20 20:00 100 11/20/20 20:00 Mechanical Ventilator 11/20/20 20:00 110/42 11/20/20 20:00 104 11/20/20 20:00 98.8 101 28 104/27 (52) 79 11/20/20 19:46 111/26 11/20/20 19:30 105 31 122/25 (57) 88 11/20/20 19:29 86 30 100 11/20/20 19:15 93 31 111/26 (54) 88 11/20/20 19:00 86 31 65/31 (42) 89 11/20/20 19:00 65/31 11/20/20 18:45 84 32 90/35 (53) 92 11/20/20 18:30 89 32 91/30 (50) 91 11/20/20 18:00 90 32 92/33 (52) 91 11/20/20 17:30 90 33 91/35 (53) 92 11/20/20 17:00 92 33 90/32 (51) 93 11/20/20 16:30 92 31 90/32 (51) 94 11/20/20 16:00 Mechanical Ventilator 11/20/20 16:00 98.1 93 33 90/32 (51) 93 11/20/20 16:00 100 11/20/20 16:00 104 11/20/20 15:00 95 33 97/33 (54) 93 11/20/20 14:40 93 30 100 I&O Intake and Output 11/20/20 11/21/20 19:00 07:00 Intake Total 2681.75 ml 2952.6873 ml Output Total 113 ml 185 ml Balance 2568.75 ml 2767.6873 ml Free Water 810 ml 1200 ml IV Total 1091.75 ml 972.6873 ml Tube Feeding 780 ml 780 ml Output Urine Total 113 ml 185 ml # Bowel Movements 1 Dressing: dry Cardiovascular: RSR Respiratory: decreased breath sounds Abdomen: soft, non-tender, present bowel sounds Extremities: no tenderness, no cyanosis Laboratory Tests Test 11/20/20 19:53 11/20/20 23:47 11/21/20 04:00 11/21/20 08:43 POC Whole Blood Glucose Pending 105 MG/DL (74-106) White Blood Count 20.6 K/UL (4.8-10.8) H Red Blood Count 2.80 M/UL (4.70-6.10) L Hemoglobin 8.6 G/DL (14.2-18.0) L Hematocrit 29.2 % (42.0-52.0) L Mean Corpuscular Volume 104 FL (80-99) H Mean Corpuscular Hemoglobin 30.8 PG (27.0-31.0) Mean Corpuscular Hemoglobin Concent 29.5 G/DL (32.0-36.0) L Red Cell Distribution Width 16.0 % (11.6-14.8) H Platelet Count 92 K/UL (150-450) L Mean Platelet Volume 8.4 FL (6.5-10.1) Neutrophils (%) (Auto) % (45.0-75.0) Lymphocytes (%) (Auto) % (20.0-45.0) Monocytes (%) (Auto) % (1.0-10.0) Eosinophils (%) (Auto) % (0.0-3.0) Basophils (%) (Auto) % (0.0-2.0) Differential Total Cells Counted 100 Neutrophils % (Manual) 93 % (45-75) H Lymphocytes % (Manual) 5 % (20-45) L Monocytes % (Manual) 2 % (1-10) Eosinophils % (Manual) 0 % (0-3) Basophils % (Manual) 0 % (0-2) Band Neutrophils 0 % (0-8) Platelet Estimate Decreased L Platelet Morphology Normal Hypochromasia 1+ Anisocytosis 1+ Macrocytosis 1+ Sodium Level 152 MMOL/L (136-145) H Potassium Level 5.2 MMOL/L (3.5-5.1) H Chloride Level 115 MMOL/L (98-107) H Carbon Dioxide Level 31 MMOL/L (21-32) Anion Gap 6 mmol/L (5-15) Blood Urea Nitrogen 167 mg/dL (7-18) H Creatinine 3.0 MG/DL (0.55-1.30) H Estimat Glomerular Filtration Rate 20.0 mL/min (>60) Glucose Level 232 MG/DL (74-106) #H Calcium Level 7.6 MG/DL (8.5-10.1) L Phosphorus Level 6.4 MG/DL (2.5-4.9) H Magnesium Level 2.4 MG/DL (1.8-2.4) Total Bilirubin 0.9 MG/DL (0.2-1.0) Aspartate Amino Transf (AST/SGOT) 65 U/L (15-37) H Alanine Aminotransferase (ALT/SGPT) 61 U/L (12-78) Alkaline Phosphatase 159 U/L (46-116) H Total Protein 5.5 G/DL (6.4-8.2) L Albumin 2.0 G/DL (3.4-5.0) L Globulin 3.5 g/dL Albumin/Globulin Ratio 0.6 (1.0-2.7) L Arterial Blood pH 7.190 (7.350-7.450) Arterial Blood Partial Pressure CO2 70.7 mmHg (35.0-45.0) *H Arterial Blood Partial Pressure O2 48.9 mmHg (75.0-100.0) Arterial Blood HCO3 26.4 mmol/L (22.0-26.0) H Arterial Blood Oxygen Saturation 77.7 % (95-100) *L Arterial Blood Base Excess -2.4 (-2-2) L Jonathan Test Positive Plan Problems: (1) ARDS (adult respiratory distress syndrome) Assessment & Plan: 84-year-old male who pressor insufficiency ARDS Covid on vent ET tube in place chest x-ray reviewed central line in place on sedation. Continue daily weaning trials. NG tube okay for diet tube feeds continue. Microbiology reviewed labs reviewed. Trend labs. IV fluids. Will follow with recommendations thank you for let me participate patient's care cxr stable on abx covid + cont abx cont f wean as tolerated DAILY ESTIMATED NEEDS: Needs based on Critcal care 82.4kg abw 22-28 kcals/kg 5432-0941 total kcals 1.2-2 g protein/kg 99-165 g total protein 20-25/ or per MD mL/kg 8796-2433 total fluid mLs NUTRITION DIAGNOSIS: Swallowing difficulty r/t respiratory status as evidenced by 84 y/o M adm w/ covid++, now orally intubated, NPO. ENTERAL NUTRITION RECOMMENDATIONS: VITAL 1.2 GOAL OF 65ml/hr x24 hrs to provide 1560ml, 1872 kcal, 117g pro, 1265ml free H2O - When hemodynamically stable, rec to start non oral feeds to meet est kcal and pro needs. - Start Vital 1.2 @35ml/hr for 6 hrs, advance as tolerated 10ml/hr q4-6 hrs to goal. - Flush per MD. HOB over 30 degrees ADDITIONAL RECOMMENDATIONS: 1) Maintain calibrated bed scale wts 2) Followed by end, monitor for hypoglycemia while NPO 3) Feed when hemodynamically stable, TF recs as above for critical care, carb control, high pro content to meet est needs 4) Re-evaluate TF w/ change in propofol rate-> current rate w/ TF's do NOT exceed est needs. (2) Hypoxemia (3) Renal failure (4) Elevated troponin (5) COVID-19 Assessment & Plan: ++ on abx tx per Tommie Teague Nov 21, 2020 14:39
--- NOTE | 2020-11-21 18:00 | NUR ---
NURSE NOTES: Pt was cleaned and repositioned. Spoke with dialysis nurse, Lasha HOWELL, who will arrive at 1900 for hemodialysis treatment.
--- NOTE | 2020-11-21 18:19 | General Progress Note ---
Subjective Date patient seen: Nov 21, 2020 ROS Limited/Unobtainable: Yes Allergies: Coded Allergies: No Known Allergies (Unverified , 11/06/20) Subjective Chart review since last seen. Patient continues to be on ventilator. FiO2 100% PEEP of 10. Attempted dialysis yesterday however patient became hypotensive. On dopamine. Not doing well. CODE STATUS changed to DNR per family wishes. ROS: unable to obtain due to ALOC Objective Last 24 Hour Vital Signs Date Time Temp Pulse Resp B/P (MAP) Pulse Ox O2 Delivery O2 Flow Rate FiO2 11/21/20 17:00 139/39 11/21/20 17:00 95 33 139/39 (72) 84 11/21/20 16:30 94 23 125/37 (66) 83 11/21/20 16:00 117/36 11/21/20 16:00 93 31 117/36 (63) 94 11/21/20 16:00 94 11/21/20 15:30 94 32 124/34 (64) 86 11/21/20 15:00 135/40 11/21/20 15:00 96 32 135/40 (71) 86 11/21/20 14:30 95 32 116/43 (67) 84 11/21/20 14:00 94 33 111/41 (64) 84 11/21/20 14:00 106/38 11/21/20 13:30 90 35 100/39 (59) 85 11/21/20 13:10 94 31 100 11/21/20 13:00 102 32 100/39 (59) 84 11/21/20 13:00 108/39 11/21/20 12:30 101 31 104/38 (60) 83 11/21/20 12:00 100 11/21/20 12:00 Mechanical Ventilator 11/21/20 12:00 107/35 11/21/20 12:00 102 32 101/37 (58) 92 11/21/20 12:00 100 11/21/20 11:00 97/37 11/21/20 11:00 100 31 108/36 (60) 82 11/21/20 10:00 97 33 100/36 (57) 81 11/21/20 10:00 100/36 11/21/20 09:30 99 32 108/37 (60) 81 12/31/20 09:00 100 32 103/41 (61) 83 11/21/20 09:00 103/41 11/21/20 08:30 100 32 107/38 (61) 83 11/21/20 08:00 Mechanical Ventilator 11/21/20 08:00 91 32 110/38 (62) 84 11/21/20 08:00 100/70 11/21/20 08:00 100 11/21/20 08:00 91 11/21/20 07:30 91 33 109/41 (63) 83 11/21/20 07:25 90 34 100 11/21/20 07:00 109/41 11/21/20 07:00 91 33 109/41 (63) 80 11/21/20 06:00 110/45 11/21/20 06:00 89 31 116/46 (69) 79 11/21/20 05:30 97 31 123/53 (76) 79 11/21/20 05:00 96 31 123/38 (66) 79 11/21/20 05:00 105/30 11/21/20 04:30 92 30 126/39 (68) 75 11/21/20 04:15 95 29 111/42 (65) 70 11/21/20 04:00 98.5 95 28 110/43 (65) 57 11/21/20 04:00 100 11/21/20 04:00 92 11/21/20 04:00 Mechanical Ventilator 11/21/20 04:00 133/38 11/21/20 03:45 93 26 103/43 (63) 77 11/21/20 03:30 105 29 161/51 (87) 84 11/21/20 03:15 104 30 158/50 (86) 86 11/21/20 03:00 112/49 11/21/20 03:00 102 27 155/50 (85) 86 11/21/20 02:30 110 30 151/53 (85) 79 11/21/20 02:00 112/29 11/21/20 02:00 101 31 100 11/21/20 02:00 96 28 109/27 (54) 91 11/21/20 01:30 102 29 137/26 (63) 88 11/21/20 01:00 95 29 113/33 (59) 85 11/21/20 01:00 120/39 11/21/20 00:30 93 28 109/27 (54) 85 11/21/20 00:00 99.3 95 28 110/25 (53) 86 11/21/20 00:00 Mechanical Ventilator 11/21/20 00:00 123/45 11/21/20 00:00 100 11/21/20 00:00 96 11/20/20 23:30 94 30 111/28 (55) 87 11/20/20 23:00 115/36 11/20/20 23:00 97 30 110/33 (58) 83 11/20/20 22:30 110 29 120/25 (56) 77 11/20/20 22:00 115/26 11/20/20 22:00 104 31 129/32 (64) 55 11/20/20 21:30 103 30 130/29 (62) 80 11/20/20 21:00 103 30 113/27 (55) 82 11/20/20 21:00 120/25 11/20/20 20:30 105 30 109/29 (55) 81 11/20/20 20:00 100 11/20/20 20:00 Mechanical Ventilator 11/20/20 20:00 110/42 11/20/20 20:00 104 11/20/20 20:00 98.8 101 28 104/27 (52) 79 11/20/20 19:46 111/26 11/20/20 19:30 105 31 122/25 (57) 88 11/20/20 19:29 86 30 100 11/20/20 19:15 93 31 111/26 (54) 88 11/20/20 19:00 86 31 65/31 (42) 89 11/20/20 19:00 65/31 11/20/20 18:45 84 32 90/35 (53) 92 11/20/20 18:30 89 32 91/30 (50) 91 Intake and Output 11/20/20 11/21/20 19:00 07:00 Intake Total 2681.75 ml 2952.6873 ml Output Total 113 ml 185 ml Balance 2568.75 ml 2767.6873 ml Free Water 810 ml 1200 ml IV Total 1091.75 ml 972.6873 ml Tube Feeding 780 ml 780 ml Output Urine Total 113 ml 185 ml # Bowel Movements 1 Laboratory Tests 11/20/20 19:53: POC Whole Blood Glucose [Pending] 11/20/20 23:47: POC Whole Blood Glucose 105 11/21/20 04:00: White Blood Count 20.6H, Red Blood Count 2.80L, Hemoglobin 8.6L, Hematocrit 29.2L, Mean Corpuscular Volume 104H, Mean Corpuscular Hemoglobin 30.8, Mean Corpuscular Hemoglobin Concent 29.5L, Red Cell Distribution Width 16.0H, Platelet Count 92L, Mean Platelet Volume 8.4, Neutrophils (%) (Auto) , Lymphocytes (%) (Auto) , Monocytes (%) (Auto) , Eosinophils (%) (Auto) , Basophils (%) (Auto) , Differential Total Cells Counted 100, Neutrophils % (Manual) 93H, Lymphocytes % (Manual) 5L, Monocytes % (Manual) 2, Eosinophils % (Manual) 0, Basophils % (Manual) 0, Band Neutrophils 0, Platelet Estimate DecreasedL, Platelet Morphology Normal, Hypochromasia 1+, Anisocytosis 1+, Macrocytosis 1+, Sodium Level 152H, Potassium Level 5.2H, Chloride Level 115H, Carbon Dioxide Level 31, Anion Gap 6, Blood Urea Nitrogen 167H, Creatinine 3.0H, Estimat Glomerular Filtration Rate 20.0, Glucose Level 232#H, Calcium Level 7.6L, Phosphorus Level 6.4H, Magnesium Level 2.4, Total Bilirubin 0.9, Aspartate Amino Transf (AST/SGOT) 65H, Alanine Aminotransferase (ALT/SGPT) 61, Alkaline Phosphatase 159H, Total Protein 5.5L, Albumin 2.0L, Globulin 3.5, Albumin/Globulin Ratio 0.6L 11/21/20 08:43: Arterial Blood pH 7.190*L, Arterial Blood Partial Pressure CO2 70.7*H, Arterial Blood Partial Pressure O2 48.9*L, Arterial Blood HCO3 26.4H, Arterial Blood Oxygen Saturation 77.7*L, Arterial Blood Base Excess -2.4L, Jonathan Test Positive 11/21/20 16:20: Hepatitis B Surface Antigen [Pending] Height (Feet): 6 Height (Inches): 1.00 Weight (Pounds): 190 Objective Exam limited due to COVID status and to conserve PPE. Per discussion with RN. General: Male A&o x 0 On intubated, sedated, moving all extremities spontaneously off sedation HEENT: Normocephalic cephalic atraumatic, pupils equal round reactive to light and accommodation, nares patent and no symmetrical, no tonsillar exudates, mucous membranes moist CV: Regular rate regular rhythm, no murmurs, rubs, or gallops Pulm: Lungs coarse breath sounds bilaterally. No wheezes, rhonchi, or rales GI: Soft, nontender, nondistended, bowel sounds present Neuro: Moving all extremities Ext: No lower extremity edema bilaterally Skin: no rashes lesions or ulcers Msk: Joints symmetrical in upper extremity and lower extremity bilaterally, no joint swelling. Lymph: No lymphadenopathy in upper extremity and lower extremity Assessment/Plan Status: stable Assessment/Plan: 84 yo M w DM2, HTN, ? CKD admitted for Covid19 PNA with SAMEER: #Septic shock #Acute hypoxemia Resp failure 2/ covid PNA - + , Intubated # Covid PNA - #Pneumomediastinum Appreciate ID/Pulm - S/P CVC placement - AB now are Zosyn and Micafungin per ID (s/p Vanco) - Continue Solumedrol IV - CXR with improvement with pneumomediastinum - Pressor support w/ Dopamine and Levophed, Propfol for Sedation, monitor TG - NG tube 11/07 for meds. start tube feeding - IV fluids per nephro - DVT/GI ppx - s/p decadron 6mg iv daily - s/p Remdesivir per ID (11/09 started) - s/p azithromycin (11/08 started ) - s/p Vancomycin (11/09 started) #Acute Renal Failure now Requiring HD -Appreciate Nephro -S/P Ray, Initiate HD 11/20 -Hoping this will help the pulmonary edema/fluid shifting -Douglas Cath; Strict I/O -lasix drip per Pulm/Nephro #S. hominis bacteremia, Contaminant? Defer to ID Appreciate ID AB as above #Anemia - GI consult Dr. Saavedra - PPI, Monitor for GIB #DM2 uncontrolled - Adjust long acting daily to maintain blood sugar 180 or less - SSI, Accuchecks Q6 w/ tube feeds - Requirements will be increased while on steroids DVTPPX: lovenox GI PPX: protonix Fluids: per nephro Diet: NPO, tube feedings PT/OT: deferred Code status:DNAR Dispo: SNF eventually. Guarded prognosis. Family aware Reason for Continued Hospitalization: Hypoxia Time of my involvement, the patient's condition was critical with high potential for and/or physiologic deterioration secondary to septic shock, acute hypoxic respiratory failure as delineated in the note above. On the above date of service, I spent a total of 38 minutes in the ICU evaluating, managing, and providing critical care services to this patient, including time spent documenting these activities, counseling patient/family, and coordinating care. Critical care services performed include: -Telemetry review -Hemodynamic measurement interpretation -Laboratory data review and interpretation -Vent setting reviewed, management -Discussion of care plans with patient, family, and/or surrogate decision makers -Discussion of patient's care with primary medical team, surgical team, and/or consulting service -Decision to obtain further radiologic evaluation, after consideration of the risk/benefit ratio -Review of most recent microbiology results assessment and modification of antimicrobial coverage -Discussion of patient's CODE STATUS and further advancement towards the ultimate goals of care. Plan outlined above discussed with patient/family, INSTRUCTIONAL MEDIA SERVICES TECHNICIAN, ICU team, and involved physician/consultants. Time of note not necessarily time patient was seen Bakari Lucio D.O. Nov 21, 2020 18:19
--- NOTE | 2020-11-21 19:00 | NUR ---
NURSE HAND-OFF REPORT: Latest Vital Signs: Temperature 98.4 , Pulse 87 , B/P 125 /40 , Respiratory Rate 27 , O2 SAT 87 , Mechanical Ventilator, ETT 7.5 at 28cm/lipline with vent settings, AC18, VT450, Peep 10, FIO2 100%. Vital Sign Comment: Dialysis nurse is now at bedside setting up the HD machine for next treatment. EKG Rhythm: Sinus Rhythm Rhythm change?: N Notified?: Marty Muñoz MD Response: No New Orders Received Latest Blackwell Fall Score: 50 Fall Risk: High Risk Safety Measures: Call light Within Reach, Bed Alarm Zone 1, Side Rails Side Rails x3, Bed position Low and Locked. Fall Precautions: Yellow Socks Yellow Gown Door Sign Patient Fall Education Report given to Barbra HOWELL. Endorsed plan of care.
--- NOTE | 2020-11-21 19:15 | NUR ---
NURSE NOTES: Received patient from LYNDA Minaya. Will continue plan of care.
[2020-11-21] MEDS: DOPamine 400mg/250ml 250 ML IV SCH (19:45)
--- NOTE | 2020-11-21 20:00 | NUR ---
NURSE NOTES: Patient is intubated; ETT 7.5 @ 25cm to the lipline to vent with settings of AC:18, TV:450, FiO2:100%, PEEP:10. Stat CXR ordered to confirm tube placement b/c lipline was been endorsed @ 28cm. OGT running Nepro @ 40ml/hr and tolerating. Rectal tube and montilla catheter is in place and draining. Right upper arm PICC running Dopamine @ 0.5mcgs and D5W @ 75ml/hr and right femoral ester w/ pigtail for HD. HD nurse is here and preparing to start, will continue plan of care.
[2020-11-21] MEDS: Miralax 17gm pkt GT SCH (20:40)
--- NOTE | 2020-11-21 21:33 | NUR ---
NURSE NOTES: Patient became hypoxic and hypertensive even with Dopamine titrating up. HD nurse recommended to stop HD. 1L out and 1 hour tolerated.
--- NOTE | 2020-11-21 21:35 | Diagnostic Imaging Report ---
EXAM: XR Chest, 1 View CLINICAL HISTORY: F/U TECHNIQUE: Frontal view of the chest. COMPARISON: 11/18/20. FINDINGS: As noted previously, there are endotracheal and enteric tubes. These are in stable, satisfactory position. Right arm PICC is again noted. Tip is difficult to identify, but likely in a stable position in the superior vena cava. Interval resolution of soft tissue gas in the left lower neck. Pneumomediastinum is also no longer identified. No clear pneumothorax. No significant interval change in bilateral interstitial and airspace opacities compared to the prior study, given differences in technique. Small left pleural effusion is again suspected. Heart is borderline enlarged, though potentially exaggerated by portable technique. Calcifications of the aorta. Osseous degenerative changes. IMPRESSION: Accounting for differences in technique, there is no significant interval change. Stable appearance of life support devices. Interstitial and airspace pulmonary opacities are again noted with suspected small left pleural effusion.
[2020-11-21] MEDS: Dyna-Hex 2% Top Sol 2oz TOPIC SCH (21:43)
[2020-11-21] MEDS: Enoxaparin 30mg Inj SUBQ SCH (21:44)
--- NOTE | 2020-11-21 22:01 | NUR ---
NURSE NOTES: CXR report noted that ETT is in stable and satisfactory position. Spoke with RT and will leave ETT at 25cm lipline.
[2020-11-22] VITALS (46 sets, daily range): BP systolic 78–141; BP diastolic 26–51
--- NOTE | 2020-11-22 | NUR ---
NURSE NOTES: Dopamine running at 2.5mcgs, will monitor and titrate down as needed.
[2020-11-22] MEDS: Metoclopramide 10mg/2ml Inj IVP SCH ×4 (01:00→18:00)
--- NOTE | 2020-11-22 01:30 | NUR ---
NURSE NOTES: Dopamine held for BP:121/45, HR:82. Will monitor.
--- NOTE | 2020-11-22 02:00 | NUR ---
NURSE NOTES: Remains off Dopamine and BP sustaining well; currently at BP:120/42, HR:80, O2sat:91%
--- NOTE | 2020-11-22 04:00 | NUR ---
NURSE NOTES: Bed bath given, linens changed, turned and repositioned. Oral care done.
[2020-11-22] MEDS: NovoLOG Insulin Flexpen SUBQ SCH ×4 (05:46→18:05)
[2020-11-22 05:56] LABS: HEMATOCRIT 27.1 % (42.0-52.0); MEAN CORPUSCULAR VOLUME 103 FL (80-99); PLATELET COUNT 63 K/UL (150-450); RED BLOOD COUNT 2.64 M/UL (4.70-6.10); RED CELL DISTRIBUTION WIDTH 15.5 % (11.6-14.8)
--- NOTE | 2020-11-22 06:00 | NUR ---
NURSE NOTES: Remains off Dopamine, BP: 118/35, HR:94
[2020-11-22 06:17] LABS: ALBUMIN 1.7 G/DL (3.4-5.0); ALBUMIN/GLOBULIN RATIO 0.5 (1.0-2.7); BILIRUBIN,TOTAL 0.6 MG/DL (0.2-1.0); CALCIUM 7.1 MG/DL (8.5-10.1); CREATININE 3.3 MG/DL (0.55-1.30); PHOSPHORUS 7.4 MG/DL (2.5-4.9)
--- NOTE | 2020-11-22 06:46 | NUR ---
RESPIRATORY NOTE: PT RECEIVED ON CMV WITH CURRENT SETTINGS: 18, 450, 100%, +10. ALARMS ARE ON AND AUDIBLE. VENT CIRCUIT IS SECURE AND OUT OF THE WAY. AIRWAY IS SECURE AND PATENT. WILL CONTINUE TO CLOSELY MONITOR.
--- NOTE | 2020-11-22 07:17 | NUR ---
NURSE HAND-OFF REPORT: Latest Vital Signs: Temperature 98.0 , Pulse 95 , B/P 114 /33 , Respiratory Rate 28 , O2 SAT 85 , Mechanical Ventilator, O2 Flow Rate . Vital Sign Comment: Stable off Dopamine EKG Rhythm: Sinus Rhythm Rhythm change?: N Notified?: Marty Muñoz MD Response: No New Orders Received Latest Blackwell Fall Score: 50 Fall Risk: High Risk Safety Measures: Call light Within Reach, Bed Alarm Zone 1, Side Rails Side Rails x3, Bed position Low and Locked. Fall Precautions: Yellow Socks Yellow Gown Door Sign Patient Fall Education Report given to LYNDA Hutchinson.
--- NOTE | 2020-11-22 07:18 | NUR ---
NURSE NOTES: Pt received from LYNDA Pearson. Pt does not respond to pain stimuli; gag reflex is hypoactive; bilat pupils equal and round 3mm with sluggish rxn to light. Pt is SR to pvc monitor with 2+ radial and dorsalis pedis pulses. 2+ pitting edema noted to hands. Afebrile. cap refill less than 2 sec. Pt is orally intubated with a 7.5 ETT noted 25 cm at the lip with the following: AC 18 TV 450 FiO2 100 % Peep 10. lung rueda noted diminished upon auscultation. OGT noted running Nepro at 40 cc/hr. Abdomen is round and soft w/ active bowel sounds to all quadrants. F/C noted draining yellow, clear urine. Skin is intact. Pt has a JANIA PICC with dry and intact dressing. No IVF running at this time. dopamine on stand-by. Bed in lowest position, alarm on, side rails up x 3, call light within reach. Will continue to monitor.
[2020-11-22] MEDS: Docusate 100mg/10ml Liq GT SCH ×2 (08:06→21:00)
[2020-11-22] MEDS: Pantoprazole Inj IVP SCH (08:07)
[2020-11-22] MEDS: Solu-MEDROL 40mg Inj IVP SCH ×2 (08:07→21:00)
[2020-11-22] MEDS: Fluconazole 100mg tab GT SCH (08:07)
[2020-11-22] MEDS: Levemir Flexpen SUBQ SCH ×2 (08:10→21:00)
--- NOTE | 2020-11-22 10:00 | NUR ---
NURSE NOTES: Pt repositioned. No distress noted.
--- NOTE | 2020-11-22 11:00 | NUR ---
Pt seen by Dr Drew and EARLENE Greco.
--- NOTE | 2020-11-22 11:34 | Neurology Progress Note ---
Interim History Interim History ROS Limited/Unobtainable: Yes Objective Physical Exam Last Vital Signs Date Time Temp Pulse Resp B/P (MAP) Pulse Ox O2 Delivery O2 Flow Rate FiO2 11/22/20 11:00 92 30 109/37 (61) 82 11/22/20 08:00 Mechanical Ventilator 11/22/20 08:00 100 11/22/20 08:00 98.1 Laboratory Tests Test 11/21/20 16:20 11/21/20 21:47 11/22/20 01:01 11/22/20 03:45 Hepatitis B Surface Antigen Pending POC Whole Blood Glucose 230 MG/DL (74-106) H Pending White Blood Count 19.0 K/UL (4.8-10.8) H Red Blood Count 2.64 M/UL (4.70-6.10) L Hemoglobin 8.0 G/DL (14.2-18.0) L Hematocrit 27.1 % (42.0-52.0) L Mean Corpuscular Volume 103 FL (80-99) H Mean Corpuscular Hemoglobin 30.5 PG (27.0-31.0) Mean Corpuscular Hemoglobin Concent 29.6 G/DL (32.0-36.0) L Red Cell Distribution Width 15.5 % (11.6-14.8) H Platelet Count 63 K/UL (150-450) L Mean Platelet Volume 8.6 FL (6.5-10.1) Neutrophils (%) (Auto) % (45.0-75.0) Lymphocytes (%) (Auto) % (20.0-45.0) Monocytes (%) (Auto) % (1.0-10.0) Eosinophils (%) (Auto) % (0.0-3.0) Basophils (%) (Auto) % (0.0-2.0) Differential Total Cells Counted 100 Neutrophils % (Manual) 95 % (45-75) H Lymphocytes % (Manual) 4 % (20-45) L Monocytes % (Manual) 1 % (1-10) Eosinophils % (Manual) 0 % (0-3) Basophils % (Manual) 0 % (0-2) Band Neutrophils 0 % (0-8) Platelet Estimate Decreased L Platelet Morphology Normal Hypochromasia 1+ Anisocytosis 1+ Macrocytosis Sodium Level 145 MMOL/L (136-145) Potassium Level 5.0 MMOL/L (3.5-5.1) Chloride Level 108 MMOL/L (98-107) H Carbon Dioxide Level 29 MMOL/L (21-32) Anion Gap 9 mmol/L (5-15) Blood Urea Nitrogen 144 mg/dL (7-18) H Creatinine 3.3 MG/DL (0.55-1.30) H Estimat Glomerular Filtration Rate 17.9 mL/min (>60) Glucose Level 243 MG/DL (74-106) H Calcium Level 7.1 MG/DL (8.5-10.1) L Phosphorus Level 7.4 MG/DL (2.5-4.9) H Magnesium Level 2.2 MG/DL (1.8-2.4) Total Bilirubin 0.6 MG/DL (0.2-1.0) Aspartate Amino Transf (AST/SGOT) 61 U/L (15-37) H Alanine Aminotransferase (ALT/SGPT) 63 U/L (12-78) Alkaline Phosphatase 164 U/L (46-116) H Total Protein 5.1 G/DL (6.4-8.2) L Albumin 1.7 G/DL (3.4-5.0) L Globulin 3.4 g/dL Albumin/Globulin Ratio 0.5 (1.0-2.7) L Test 11/22/20 05:44 POC Whole Blood Glucose Pending Neurologic Exam Objective VITAL SIGNS: Reviewed GENERAL: For general physical examination, please refer to other physicians' examination for details. NEUROLOGIC: Mental status -not responding he does not follow commands. He is currently intubated. Obtunded. Motor examination, no movements. No gag reflux Impression/Recommendations Status: stable Diagnostic Impression ASSESSMENT: 1. Acute metabolic encephalopathy, no change 2. Respiratory failure. 3. COVID-19 infection. 4. Diabetes mellitus. 5. Hypertension. 6. Hyperkalemia. 7. CKD. 8. Metabolic acidosis. Recommendations DISCUSSION AND PLAN: The patient presented with COVID-19 infection and has respiratory failure. His change in mental status was likely due to his multiple medical and electrolyte abnormalities. He has not had any imaging study of his brain. He is now DNR we will hold off on ordering any imaging. We will continue to monitor his neurological status during this hospitalization and provide further recommendations as necessary. As of now he has a poor prognosis and family has decided on DNR code status. Plan of care was discussed with Nurse Maria C and Dr. Drew who has seen patient with me. Thank you for allowing us to participate in the care of this patient. Tessie Greco NP Nov 22, 2020 11:34
--- NOTE | 2020-11-22 12:00 | NUR ---
NURSE NOTES: Pt repositioned. PO care provided. Afebrile. Seen by DO Torres - relayed lab results for today (Hgb 8 PLT 63).
--- NOTE | 2020-11-22 13:00 | NUR ---
NURSE NOTES: Pt seen by Angelo Wiley DO - relayed lab results for today (Hgb 8 PLT 63).
--- NOTE | 2020-11-22 13:18 | Nephrology Progress Note ---
Assessment/Plan Plan #SAMEER on CKD- likely pre-renal azotemia in the setting of sepsis- now progressing to ATN - concerns for #hypnatremia # acute hypoxemia Resp failure 2/2 covid PNA requiring BIPAP # Covid PNA # Lactic acid elevation # Malnutrition #HTN, current normotensive # elevated D dimer # Trop elevated # DM2 uncontrolled - patient encephalopathic- concerns or uremia given uptrending BUN HD terminated yesterday due to hemodynamic instability will try again today - continue pressors to maintain MAP > 65 - continue free water flushes [id number] - DC bicarb drip - intubated - monitor volume status - monitor ABG - monitor BMP, mag and phos daily - strict I&Os - daily weights - echo - defer renal US - antibiotic per ID time spent 65min Subjective ROS Limited/Unobtainable: Yes Subjective HD terminated yesterday due to hemodynamic instability will try again today volume overloaded on pressors - on levo and dopa patient encephalopathic plan for maharkur placement and trial of HD today Objective Objective Last 24 Hour Vital Signs Date Time Temp Pulse Resp B/P (MAP) Pulse Ox O2 Delivery O2 Flow Rate FiO2 11/22/20 12:00 91 11/22/20 12:00 98.4 90 30 111/38 (62) 88 11/22/20 12:00 Mechanical Ventilator 11/22/20 12:00 100 11/22/20 11:00 92 30 109/37 (61) 82 11/22/20 10:00 92 29 117/35 (62) 84 11/22/20 09:00 92 29 119/36 (63) 89 11/22/20 08:00 Mechanical Ventilator 11/22/20 08:00 100 11/22/20 08:00 94 11/22/20 08:00 98.1 93 29 108/36 (60) 86 11/22/20 07:00 95 28 114/33 (60) 85 11/22/20 06:00 93 27 118/36 (63) 85 11/22/20 05:00 88 28 124/38 (66) 89 11/22/20 04:48 89 11/22/20 04:00 100 11/22/20 04:00 98.0 86 26 106/37 (60) 88 11/22/20 04:00 Mechanical Ventilator 11/22/20 03:11 83 28 100 11/22/20 03:00 83 28 117/41 (66) 91 11/22/20 02:00 78 30 120/42 (68) 90 11/22/20 01:15 85 30 130/50 (76) 85 11/22/20 01:00 90 30 141/39 (73) 84 11/22/20 01:00 130/50 11/22/20 00:45 91 29 132/41 (71) 82 11/22/20 00:30 92 27 137/37 (70) 80 11/22/20 00:17 93 11/22/20 00:15 93 29 141/39 (73) 77 11/22/20 00:00 Mechanical Ventilator 11/22/20 00:00 97.2 93 29 135/37 (69) 78 11/22/20 00:00 135/37 11/22/20 00:00 100 11/21/20 23:21 92 29 100 11/21/20 23:15 92 29 128/40 (69) 83 11/21/20 23:00 93 30 124/39 (67) 85 11/21/20 23:00 128/40 11/21/20 22:00 119/41 11/21/20 22:00 105 27 119/41 (67) 84 11/21/20 21:45 134/39 11/21/20 21:45 111 27 134/39 (70) 81 11/21/20 21:30 115 27 128/47 (74) 70 11/21/20 21:25 128/47 11/21/20 21:15 119 26 64/42 (49) 11/21/20 21:00 79/42 11/21/20 21:00 114 27 79/42 (54) 11/21/20 20:55 87/38 11/21/20 20:45 97/41 11/21/20 20:30 107 28 109/40 (63) 74 11/21/20 20:25 103/39 11/21/20 20:15 113/38 11/21/20 20:12 91 11/21/20 20:00 97.7 88 26 126/41 (69) 89 11/21/20 20:00 126/41 11/21/20 20:00 100 11/21/20 20:00 Mechanical Ventilator 12/31/20 19:45 125/40 11/21/20 19:28 87 27 100 11/21/20 19:00 98.4 89 28 113/37 (62) 87 11/21/20 19:00 118/41 11/21/20 18:00 89 26 110/35 (60) 85 11/21/20 18:00 122/70 11/21/20 17:00 139/39 11/21/20 17:00 95 33 139/39 (72) 84 11/21/20 16:30 94 23 125/37 (66) 83 11/21/20 16:00 100 11/21/20 16:00 117/36 11/21/20 16:00 93 31 117/36 (63) 94 11/21/20 16:00 94 11/21/20 16:00 Mechanical Ventilator 11/21/20 15:30 94 32 124/34 (64) 86 11/21/20 15:00 135/40 11/21/20 15:00 96 32 135/40 (71) 86 11/21/20 14:30 95 32 116/43 (67) 84 11/21/20 14:00 94 33 111/41 (64) 84 11/21/20 14:00 106/38 11/21/20 13:30 90 35 100/39 (59) 85 Intake and Output 11/21/20 11/22/20 19:00 07:00 Intake Total 2873.784 ml 1501.9421 ml Output Total 90 ml 730 ml Balance 2783.784 ml 771.9421 ml Free Water 1200 ml 60 ml IV Total 893.784 ml 661.9421 ml Tube Feeding 780 ml 780 ml Output Urine Total 90 ml 130 ml Stool Total 600 ml # Bowel Movements 103 Laboratory Tests 11/21/20 16:20: Hepatitis B Surface Antigen [Pending] 11/21/20 21:47: POC Whole Blood Glucose 230H 11/22/20 01:01: POC Whole Blood Glucose [Pending] 11/22/20 03:45: White Blood Count 19.0H, Red Blood Count 2.64L, Hemoglobin 8.0L, Hematocrit 27.1L, Mean Corpuscular Volume 103H, Mean Corpuscular Hemoglobin 30.5, Mean Corpuscular Hemoglobin Concent 29.6L, Red Cell Distribution Width 15.5H, Platelet Count 63L, Mean Platelet Volume 8.6, Neutrophils (%) (Auto) , Lymphocytes (%) (Auto) , Monocytes (%) (Auto) , Eosinophils (%) (Auto) , Basophils (%) (Auto) , Differential Total Cells Counted 100, Neutrophils % (Manual) 95H, Lymphocytes % (Manual) 4L, Monocytes % (Manual) 1, Eosinophils % (Manual) 0, Basophils % (Manual) 0, Band Neutrophils 0, Platelet Estimate DecreasedL, Platelet Morphology Normal, Hypochromasia 1+, Anisocytosis 1+, Macrocytosis , Sodium Level 145, Potassium Level 5.0, Chloride Level 108H, Carbon Dioxide Level 29, Anion Gap 9, Blood Urea Nitrogen 144H, Creatinine 3.3H, Estimat Glomerular Filtration Rate 17.9, Glucose Level 243H, Calcium Level 7.1L, Phosphorus Level 7.4H, Magnesium Level 2.2, Total Bilirubin 0.6, Aspartate Amino Transf (AST/SGOT) 61H, Alanine Aminotransferase (ALT/SGPT) 63, Alkaline Phosphatase 164H, Total Protein 5.1L, Albumin 1.7L, Globulin 3.4, Albumin/Globulin Ratio 0.5L 11/22/20 05:44: POC Whole Blood Glucose [Pending] Height (Feet): 6 Height (Inches): 1.00 Weight (Pounds): 190 Objective General Appearance: other - intubated EENT: PERRL/EOMI, normal ENT inspection Neck: non-tender, normal alignment Cardiovascular: normal peripheral pulses, tachycardia Respiratory/Chest: chest wall non-tender, rhonchi - bilaterally Abdomen: normal bowel sounds, non tender Extremities: pitting Neurologic: unresponsive Kulwant Hong M.D. Nov 22, 2020 13:18
[2020-11-22] MEDS: cefTRIAXone 1 GM in D5W 55 ML IVPB SCH (13:46)
--- NOTE | 2020-11-22 13:48 | Surgery Progress Note ---
Surgery Progress Note Subjective Procedure Performed Right femoral temp HD catheter insertion Additional Comments ill appearing on support leukocytosis neuro / renal input noted Objective Last 24 Hour Vital Signs Date Time Temp Pulse Resp B/P (MAP) Pulse Ox O2 Delivery O2 Flow Rate FiO2 11/22/20 13:00 92 31 107/38 (61) 89 11/22/20 12:00 91 11/22/20 12:00 98.4 90 30 111/38 (62) 88 11/22/20 12:00 Mechanical Ventilator 11/22/20 12:00 100 11/22/20 11:00 92 30 109/37 (61) 82 11/22/20 10:00 92 29 117/35 (62) 84 11/22/20 09:00 92 29 119/36 (63) 89 11/22/20 08:00 Mechanical Ventilator 11/22/20 08:00 100 11/22/20 08:00 94 11/22/20 08:00 98.1 93 29 108/36 (60) 86 11/22/20 07:00 95 28 114/33 (60) 85 11/22/20 06:00 93 27 118/36 (63) 85 11/22/20 05:00 88 28 124/38 (66) 89 11/22/20 04:48 89 11/22/20 04:00 100 11/22/20 04:00 98.0 86 26 106/37 (60) 88 11/22/20 04:00 Mechanical Ventilator 11/22/20 03:11 83 28 100 11/22/20 03:00 83 28 117/41 (66) 91 11/22/20 02:00 78 30 120/42 (68) 90 11/22/20 01:15 85 30 130/50 (76) 85 11/22/20 01:00 90 30 141/39 (73) 84 11/22/20 01:00 130/50 11/22/20 00:45 91 29 132/41 (71) 82 11/22/20 00:30 92 27 137/37 (70) 80 11/22/20 00:17 93 11/22/20 00:15 93 29 141/39 (73) 77 11/22/20 00:00 Mechanical Ventilator 11/22/20 00:00 97.2 93 29 135/37 (69) 78 11/22/20 00:00 135/37 11/22/20 00:00 100 11/21/20 23:21 92 29 100 11/21/20 23:15 92 29 128/40 (69) 83 11/21/20 23:00 93 30 124/39 (67) 85 11/21/20 23:00 128/40 11/21/20 22:00 119/41 11/21/20 22:00 105 27 119/41 (67) 84 11/21/20 21:45 134/39 11/21/20 21:45 111 27 134/39 (70) 81 11/21/20 21:30 115 27 128/47 (74) 70 11/21/20 21:25 128/47 11/21/20 21:15 119 26 64/42 (49) 11/21/20 21:00 79/42 11/21/20 21:00 114 27 79/42 (54) 11/21/20 20:55 87/38 11/21/20 20:45 97/41 11/21/20 20:30 107 28 109/40 (63) 74 11/21/20 20:25 103/39 11/21/20 20:15 113/38 11/21/20 20:12 91 11/21/20 20:00 97.7 88 26 126/41 (69) 89 11/21/20 20:00 126/41 11/21/20 20:00 100 11/21/20 20:00 Mechanical Ventilator 11/21/20 19:45 125/40 11/21/20 19:28 87 27 100 11/21/20 19:00 98.4 89 28 113/37 (62) 87 11/21/20 19:00 118/41 11/21/20 18:00 89 26 110/35 (60) 85 11/21/20 18:00 122/70 11/21/20 17:00 139/39 11/21/20 17:00 95 33 139/39 (72) 84 11/21/20 16:30 94 23 125/37 (66) 83 11/21/20 16:00 100 11/21/20 16:00 117/36 11/21/20 16:00 93 31 117/36 (63) 94 11/21/20 16:00 94 11/21/20 16:00 Mechanical Ventilator 11/21/20 15:30 94 32 124/34 (64) 86 11/21/20 15:00 135/40 11/21/20 15:00 96 32 135/40 (71) 86 11/21/20 14:30 95 32 116/43 (67) 84 11/21/20 14:00 94 33 111/41 (64) 84 11/21/20 14:00 106/38 I&O Intake and Output 11/21/20 11/22/20 19:00 07:00 Intake Total 2873.784 ml 1501.9421 ml Output Total 90 ml 730 ml Balance 2783.784 ml 771.9421 ml Free Water 1200 ml 60 ml IV Total 893.784 ml 661.9421 ml Tube Feeding 780 ml 780 ml Output Urine Total 90 ml 130 ml Stool Total 600 ml # Bowel Movements 103 Cardiovascular: RSR Respiratory: decreased breath sounds Abdomen: soft, non-tender, present bowel sounds, non-distended Extremities: edema, no tenderness, no cyanosis Laboratory Tests Test 11/21/20 16:20 11/21/20 21:47 11/22/20 01:01 11/22/20 03:45 Hepatitis B Surface Antigen Pending POC Whole Blood Glucose 230 MG/DL (74-106) H Pending White Blood Count 19.0 K/UL (4.8-10.8) H Red Blood Count 2.64 M/UL (4.70-6.10) L Hemoglobin 8.0 G/DL (14.2-18.0) L Hematocrit 27.1 % (42.0-52.0) L Mean Corpuscular Volume 103 FL (80-99) H Mean Corpuscular Hemoglobin 30.5 PG (27.0-31.0) Mean Corpuscular Hemoglobin Concent 29.6 G/DL (32.0-36.0) L Red Cell Distribution Width 15.5 % (11.6-14.8) H Platelet Count 63 K/UL (150-450) L Mean Platelet Volume 8.6 FL (6.5-10.1) Neutrophils (%) (Auto) % (45.0-75.0) Lymphocytes (%) (Auto) % (20.0-45.0) Monocytes (%) (Auto) % (1.0-10.0) Eosinophils (%) (Auto) % (0.0-3.0) Basophils (%) (Auto) % (0.0-2.0) Differential Total Cells Counted 100 Neutrophils % (Manual) 95 % (45-75) H Lymphocytes % (Manual) 4 % (20-45) L Monocytes % (Manual) 1 % (1-10) Eosinophils % (Manual) 0 % (0-3) Basophils % (Manual) 0 % (0-2) Band Neutrophils 0 % (0-8) Platelet Estimate Decreased L Platelet Morphology Normal Hypochromasia 1+ Anisocytosis 1+ Macrocytosis Sodium Level 145 MMOL/L (136-145) Potassium Level 5.0 MMOL/L (3.5-5.1) Chloride Level 108 MMOL/L (98-107) H Carbon Dioxide Level 29 MMOL/L (21-32) Anion Gap 9 mmol/L (5-15) Blood Urea Nitrogen 144 mg/dL (7-18) H Creatinine 3.3 MG/DL (0.55-1.30) H Estimat Glomerular Filtration Rate 17.9 mL/min (>60) Glucose Level 243 MG/DL (74-106) H Calcium Level 7.1 MG/DL (8.5-10.1) L Phosphorus Level 7.4 MG/DL (2.5-4.9) H Magnesium Level 2.2 MG/DL (1.8-2.4) Total Bilirubin 0.6 MG/DL (0.2-1.0) Aspartate Amino Transf (AST/SGOT) 61 U/L (15-37) H Alanine Aminotransferase (ALT/SGPT) 63 U/L (12-78) Alkaline Phosphatase 164 U/L (46-116) H Total Protein 5.1 G/DL (6.4-8.2) L Albumin 1.7 G/DL (3.4-5.0) L Globulin 3.4 g/dL Albumin/Globulin Ratio 0.5 (1.0-2.7) L Test 11/22/20 05:44 POC Whole Blood Glucose Pending Plan Problems: (1) ARDS (adult respiratory distress syndrome) Assessment & Plan: 84-year-old male who pressor insufficiency ARDS Covid on vent ET tube in place chest x-ray reviewed central line in place on sedation. Continue daily weaning trials. NG tube okay for diet tube feeds continue. Micr obiology reviewed labs reviewed. Trend labs. IV fluids. Will follow with recommendations thank you for let me participate patient's care cxr stable on abx covid + cont abx cont f wean as tolerated DAILY ESTIMATED NEEDS: Needs based on Critcal care 82.4kg abw 22-28 kcals/kg 1384-2046 total kcals 1.2-2 g protein/kg 99-165 g total protein 20-25/ or per MD mL/kg 4506-5611 total fluid mLs NUTRITION DIAGNOSIS: Swallowing difficulty r/t respiratory status as evidenced by 84 y/o M adm w/ covid++, now orally intubated, NPO. ENTERAL NUTRITION RECOMMENDATIONS: VITAL 1.2 GOAL OF 65ml/hr x24 hrs to provide 1560ml, 1872 kcal, 117g pro, 1265ml free H2O - When hemodynamically stable, rec to start non oral feeds to meet est kcal and pro needs. - Start Vital 1.2 @35ml/hr for 6 hrs, advance as tolerated 10ml/hr q4-6 hrs to goal. - Flush per MD. HOB over 30 degrees ADDITIONAL RECOMMENDATIONS: 1) Maintain calibrated bed scale wts 2) Followed by end, monitor for hypoglycemia while NPO 3) Feed when hemodynamically stable, TF recs as above for critical care, carb control, high pro content to meet est needs 4) Re-evaluate TF w/ change in propofol rate-> current rate w/ TF's do NOT exceed est needs. (2) Hypoxemia (3) Renal failure (4) Elevated troponin (5) COVID-19 Assessment & Plan: ++ on abx tx per ID Tommie Barone Nov 22, 2020 13:48
--- NOTE | 2020-11-22 14:00 | NUR ---
NURSE NOTES: Pt repositioned. No distress noted.
--- NOTE | 2020-11-22 14:11 | Pulmonology Progress Note ---
Subjective ROS Limited/Unobtainable: Yes Interval Events: dialysis on hold due to hemodynamic instability; remains intubated Constitutional: Denies: fever HEENT: Repors: no symptoms Respiratory: Reports: no symptoms Cardiovascular: Reports: no symptoms Gastrointestinal/Abdominal: Reports: no symptoms Genitourinary: Reports: no symptoms Allergies: Coded Allergies: No Known Allergies (Unverified , 11/06/20) Objective Last 24 Hour Vital Signs Date Time Temp Pulse Resp B/P (MAP) Pulse Ox O2 Delivery O2 Flow Rate FiO2 11/22/20 13:00 92 31 107/38 (61) 89 11/22/20 12:00 91 11/22/20 12:00 98.4 90 30 111/38 (62) 88 11/22/20 12:00 Mechanical Ventilator 11/22/20 12:00 100 11/22/20 11:00 92 30 109/37 (61) 82 11/22/20 10:00 92 29 117/35 (62) 84 11/22/20 09:00 92 29 119/36 (63) 89 11/22/20 08:00 Mechanical Ventilator 11/22/20 08:00 100 11/22/20 08:00 94 11/22/20 08:00 98.1 93 29 108/36 (60) 86 11/22/20 07:00 95 28 114/33 (60) 85 11/22/20 06:00 93 27 118/36 (63) 85 11/22/20 05:00 88 28 124/38 (66) 89 11/22/20 04:48 89 11/22/20 04:00 100 11/22/20 04:00 98.0 86 26 106/37 (60) 88 11/22/20 04:00 Mechanical Ventilator 11/22/20 03:11 83 28 100 11/22/20 03:00 83 28 117/41 (66) 91 11/22/20 02:00 78 30 120/42 (68) 90 11/22/20 01:15 85 30 130/50 (76) 85 11/22/20 01:00 90 30 141/39 (73) 84 11/22/20 01:00 130/50 11/22/20 00:45 91 29 132/41 (71) 82 11/22/20 00:30 92 27 137/37 (70) 80 11/22/20 00:17 93 11/22/20 00:15 93 29 141/39 (73) 77 11/22/20 00:00 Mechanical Ventilator 11/22/20 00:00 97.2 93 29 135/37 (69) 78 11/22/20 00:00 135/37 11/22/20 00:00 100 11/21/20 23:21 92 29 100 11/21/20 23:15 92 29 128/40 (69) 83 11/21/20 23:00 93 30 124/39 (67) 85 11/21/20 23:00 128/40 11/21/20 22:00 119/41 11/21/20 22:00 105 27 119/41 (67) 84 11/21/20 21:45 134/39 11/21/20 21:45 111 27 134/39 (70) 81 11/21/20 21:30 115 27 128/47 (74) 70 11/21/20 21:25 128/47 11/21/20 21:15 119 26 64/42 (49) 11/21/20 21:00 79/42 11/21/20 21:00 114 27 79/42 (54) 11/21/20 20:55 87/38 11/21/20 20:45 97/41 11/21/20 20:30 107 28 109/40 (63) 74 11/21/20 20:25 103/39 11/21/20 20:15 113/38 11/21/20 20:12 91 11/21/20 20:00 97.7 88 26 126/41 (69) 89 11/21/20 20:00 126/41 11/21/20 20:00 100 11/21/20 20:00 Mechanical Ventilator 11/21/20 19:45 125/40 11/21/20 19:28 87 27 100 11/21/20 19:00 98.4 89 28 113/37 (62) 87 11/21/20 19:00 118/41 11/21/20 18:00 89 26 110/35 (60) 85 11/21/20 18:00 122/70 11/21/20 17:00 139/39 11/21/20 17:00 95 33 139/39 (72) 84 11/21/20 16:30 94 23 125/37 (66) 83 11/21/20 16:00 100 11/21/20 16:00 117/36 11/21/20 16:00 93 31 117/36 (63) 94 11/21/20 16:00 94 11/21/20 16:00 Mechanical Ventilator 11/21/20 15:30 94 32 124/34 (64) 86 11/21/20 15:00 135/40 11/21/20 15:00 96 32 135/40 (71) 86 11/21/20 14:30 95 32 116/43 (67) 84 11/21/20 14:00 94 33 111/41 (64) 84 11/21/20 14:00 106/38 Intake and Output 0 11/21/20 11/22/20 19:00 07:00 Intake Total 2873.784 ml 1501.9421 ml Output Total 90 ml 730 ml Balance 2783.784 ml 771.9421 ml Free Water 1200 ml 60 ml IV Total 893.784 ml 661.9421 ml Tube Feeding 780 ml 780 ml Output Urine Total 90 ml 130 ml Stool Total 600 ml # Bowel Movements 103 Objective on vent General Appearance: no acute distress HEENT: normocephalic Respiratory: chest wall non-tender, lungs clear Cardiovascular: normal peripheral pulses, normal rate Abdomen: normal bowel sounds Microbiology Date/Time Source Procedure Growth Status 11/19/20 14:00 Sputum Gram Stain - Final Complete 11/19/20 14:00 Sputum Culture - Final Escherichia Coli Radha Albicans Complete Laboratory Tests 11/21/20 16:20: Hepatitis B Surface Antigen [Pending] 11/21/20 21:47: POC Whole Blood Glucose 230H 11/22/20 01:01: POC Whole Blood Glucose [Pending] 11/22/20 03:45: White Blood Count 19.0H, Red Blood Count 2.64L, Hemoglobin 8.0L, Hematocrit 27.1L, Mean Corpuscular Volume 103H, Mean Corpuscular Hemoglobin 30.5, Mean Corpuscular Hemoglobin Concent 29.6L, Red Cell Distribution Width 15.5H, Platelet Count 63L, Mean Platelet Volume 8.6, Neutrophils (%) (Auto) , Lymphocytes (%) (Auto) , Monocytes (%) (Auto) , Eosinophils (%) (Auto) , Basophils (%) (Auto) , Differential Total Cells Counted 100, Neutrophils % (Manual) 95H, Lymphocytes % (Manual) 4L, Monocytes % (Manual) 1, Eosinophils % (Manual) 0, Basophils % (Manual) 0, Band Neutrophils 0, Platelet Estimate DecreasedL, Platelet Morphology Normal, Hypochromasia 1+, Anisocytosis 1+, Macrocytosis , Sodium Level 145, Potassium Level 5.0, Chloride Level 108H, Carbon Dioxide Level 29, Anion Gap 9, Blood Urea Nitrogen 144H, Creatinine 3.3H, Estimat Glomerular Filtration Rate 17.9, Glucose Level 243H, Calcium Level 7.1L , Phosphorus Level 7.4H, Magnesium Level 2.2, Total Bilirubin 0.6, Aspartate Amino Transf (AST/SGOT) 61H, Alanine Aminotransferase (ALT/SGPT) 63, Alkaline Ph osphatase 164H, Total Protein 5.1L, Albumin 1.7L, Globulin 3.4, Albumin/Globulin Ratio 0.5L 11/22/20 05:44: POC Whole Blood Glucose [Pending] Current Medications Medications (Trade) Dose Ordered Sig/Violet Route PRN Reason Start Time Stop Time Status Last Admin Dose Admin Acetaminophen (Tylenol) 650 mg Q4H PRN GT Temp >100.5 11/12/20 11:00 12/12/20 10:44 11/18/20 14:55 Ceftriaxone Sodium 1 gm/ Dextrose 55 ml @ 110 mls/hr Q24H IVPB 11/21/20 14:00 11/28/20 13:59 11/22/20 13:46 Chlorhexidine Gluconate (Patt-Hex 2%) 1 applic DAILY@2000 TOPIC 11/17/20 20:00 02/15/21 19:59 11/21/20 21:43 Dextrose 1,000 ml @ 75 mls/hr [id number] IV 11/20/20 22:30 12/20/20 22:29 11/22/20 13:46 Dextrose (Dextrose 50%) 25 ml Q30M PRN IV Hypoglycemia 11/06/20 20:00 02/04/21 19:59 Dextrose (Dextrose 50%) 50 ml Q30M PRN IV Hypoglycemia 11/06/20 20:00 02/04/21 19:59 Docusate Sodium (Colace) 100 mg EVERY 12 HOURS GT 11/17/20 21:00 12/14/20 17:59 12/30/20 19:46 Dopamine HCl/ Dextrose 250 ml @ 0 mls/hr Q24H IV 11/19/20 19:45 11/22/20 19:35 11/20/20 19:46 Enoxaparin Sodium (Lovenox) 30 mg Q24H SUBQ 11/20/20 21:00 02/05/21 20:59 11/21/20 21:44 Fluconazole (Diflucan) 100 mg DAILY GT 11/21/20 13:30 11/28/20 13:29 11/22/20 08:07 Flumazenil (Romazicon) 0.2 mg NEEDED PRN IV Sedation reversal 11/06/20 20:00 Insulin Aspart (NovoLOG) EVERY 6 HOURS SUBQ 11/08/20 12:00 02/05/21 16:29 11/22/20 12:26 Insulin Detemir (Levemir) 20 units EVERY 12 HOURS SUBQ 11/19/20 21:00 02/05/21 20:59 11/22/20 08:10 Methylprednisolone Sodium Succinate (Solu-MEDROL) 40 mg EVERY 12 HOURS IVP 11/18/20 12:30 02/16/21 12:29 11/22/20 08:07 Metoclopramide HCl (Reglan) 5 mg Q6HR IVP 11/14/20 12:26 12/14/20 12:25 11/22/20 12:24 Naloxone HCl (Narcan) 0.4 mg NEEDED PRN IVP RR less than 6/min 11/06/20 20:00 02/04/21 19:59 Ondansetron HCl (Zofran) 4 mg Q6H PRN IVP Nausea & Vomiting 11/06/20 20:00 12/06/20 19:59 Pantoprazole (Protonix) 40 mg DAILY IVP 11/08/20 09:00 12/08/20 08:59 11/22/20 08:07 Polyethylene Glycol (Miralax) 17 gm BEDTIME GT 11/14/20 21:00 12/14/20 20:59 11/20/20 19:46 Assessment/Plan Assessment/Plan 1. COVID-19 pneumonia. 2. Diabetes mellitus. 3. Hypertension. 4. Hyperkalemia. 5. CKD. 6. Metabolic acidosis. 7. Respiratory Failure; Acute Lung Injury 9. AMS; very poorly responsive 10. anemia DISCUSSION: Continue broad-spectrum antibiotics. Continue vent/AC mode Currently FiO2 100%; Continue current rate and volumes ABG reviewed; has combined respiratory and metabolic acidosis -> bicarb drip was DC'd PEEP decreased to 10 Endo tracheal tube adjusted; pt holding volumes on vent now Had to be repositioned CXR shows fine appearing interstitial infiltrates Suspect either secondary infection or fluid Will continue Micafungin and Vanco -> micafungin was replaced with fluconazole Agree with HD -> dialysis on hold due to hemodynamic instability DC Lasix gtt Start D5W given hypernatremia -> hypernatremia now resolved Blood sugar control, Continue Decadron -> now on Solu-Medrol Off propofol Check labs and ABG AM CXR unchanged Noted neurology evaluation Angelo Wiley Nov 22, 2020 14:10 Rahat Gaspar MD Nov 22, 2020 15:40
[2020-11-22] MEDS ORDERED: D5W 550ml IV ONE (15:50)
[2020-11-22] MEDS ORDERED: Tubing IV Secondary IV ONE (15:50)
[2020-11-22] MEDS ORDERED: D5W 275ml ONE (15:50)
[2020-11-22] MEDS ORDERED: NS 275ml ONE (15:50)
--- NOTE | 2020-11-22 16:00 | NUR ---
NURSE NOTES: Pt repositioned. PO care provided. Afebrile. No distress noted at this time. Pt's son (Darien) given update over phone. Will continue to monitor.
--- NOTE | 2020-11-22 17:36 | Infectious Diseases Prog Note ---
Assessment/Plan Assessment/Plan antibiotics : ceftriaxone, fluconazole A 1. COVID 19 pneumonia on 100 % Fi O2, saturation 85 % s/p remdesivir s/p dexamethasone 2. respiratory failure 3. diabetes mellitus 4. hypertension 5. renal failure improving 6. e.coli pneumonia P 1. continue iv ceftriaxone, fluconazole 2. continue solumedrol 3. continue isolation Subjective ROS Limited/Unobtainable: Yes Allergies: Coded Allergies: No Known Allergies (Unverified , 11/06/20) Objective Last 24 Hour Vital Signs Date Time Temp Pulse Resp B/P (MAP) Pulse Ox O2 Delivery O2 Flow Rate FiO2 11/22/20 17:00 86 30 104/33 (56) 93 11/22/20 16:00 98.2 88 30 103/34 (57) 90 11/22/20 16:00 Mechanical Ventilator 11/22/20 16:00 90 11/22/20 16:00 100 11/22/20 15:00 91 30 104/35 (58) 91 11/22/20 14:00 94 31 109/36 (60) 91 11/22/20 13:00 92 31 107/38 (61) 89 11/22/20 12:00 91 11/22/20 12:00 98.4 90 30 111/38 (62) 88 11/22/20 12:00 Mechanical Ventilator 11/22/20 12:00 100 11/22/20 11:00 92 30 109/37 (61) 82 11/22/20 10:00 92 29 117/35 (62) 84 11/22/20 09:00 92 29 119/36 (63) 89 11/22/20 08:00 Mechanical Ventilator 11/22/20 08:00 100 11/22/20 08:00 94 11/22/20 08:00 98.1 93 29 108/36 (60) 86 11/22/20 07:00 95 28 114/33 (60) 85 11/22/20 06:00 93 27 118/36 (63) 85 11/22/20 05:00 88 28 124/38 (66) 89 11/22/20 04:48 89 11/22/20 04:00 100 11/22/20 04:00 98.0 86 26 106/37 (60) 88 11/22/20 04:00 Mechanical Ventilator 11/22/20 03:11 83 28 100 11/22/20 03:00 83 28 117/41 (66) 91 11/22/20 02:00 78 30 120/42 (68) 90 11/22/20 01:15 85 30 130/50 (76) 85 11/22/20 01:00 90 30 141/39 (73) 84 11/22/20 01:00 130/50 11/22/20 00:45 91 29 132/41 (71) 82 11/22/20 00:30 92 27 137/37 (70) 80 11/22/20 00:17 93 11/22/20 00:15 93 29 141/39 (73) 77 11/22/20 00:00 Mechanical Ventilator 11/22/20 00:00 97.2 93 29 135/37 (69) 78 11/22/20 00:00 135/37 11/22/20 00:00 100 11/21/20 23:21 92 29 100 11/21/20 23:15 92 29 128/40 (69) 83 11/21/20 23:00 93 30 124/39 (67) 85 11/21/20 23:00 128/40 11/21/20 22:00 119/41 11/21/20 22:00 105 27 119/41 (67) 84 11/21/20 21:45 134/39 11/21/20 21:45 111 27 134/39 (70) 81 11/21/20 21:30 115 27 128/47 (74) 70 11/21/20 21:25 128/47 11/21/20 21:15 119 26 64/42 (49) 11/21/20 21:00 79/42 11/21/20 21:00 114 27 79/42 (54) 11/21/20 20:55 87/38 11/21/20 20:45 97/41 11/21/20 20:30 107 28 109/40 (63) 74 11/21/20 20:25 103/39 11/21/20 20:15 113/38 11/21/20 20:12 91 11/21/20 20:00 97.7 88 26 126/41 (69) 89 11/21/20 20:00 126/41 11/21/20 20:00 100 11/21/20 20:00 Mechanical Ventilator 11/21/20 19:45 125/40 12/31/20 19:28 87 27 100 11/21/20 19:00 98.4 89 28 113/37 (62) 87 11/21/20 19:00 118/41 11/21/20 18:00 89 26 110/35 (60) 85 11/21/20 18:00 122/70 Height (Feet): 6 Height (Inches): 1.00 Weight (Pounds): 190 HEENT: other - intubated Laboratory Tests Test 11/21/20 21:47 11/22/20 01:01 11/22/20 03:45 11/22/20 05:44 POC Whole Blood Glucose 230 MG/DL (74-106) H Pending Pending White Blood Count 19.0 K/UL (4.8-10.8) H Red Blood Count 2.64 M/UL (4.70-6.10) L Hemoglobin 8.0 G/DL (14.2-18.0) L Hematocrit 27.1 % (42.0-52.0) L Mean Corpuscular Volume 103 FL (80-99) H Mean Corpuscular Hemoglobin 30.5 PG (27.0-31.0) Mean Corpuscular Hemoglobin Concent 29.6 G/DL (32.0-36.0) L Red Cell Distribution Width 15.5 % (11.6-14.8) H Platelet Count 63 K/UL (150-450) L Mean Platelet Volume 8.6 FL (6.5-10.1) Neutrophils (%) (Auto) % (45.0-75.0) Lymphocytes (%) (Auto) % (20.0-45.0) Monocytes (%) (Auto) % (1.0-10.0) Eosinophils (%) (Auto) % (0.0-3.0) Basophils (%) (Auto) % (0.0-2.0) Differential Total Cells Counted 100 Neutrophils % (Manual) 95 % (45-75) H Lymphocytes % (Manual) 4 % (20-45) L Monocytes % (Manual) 1 % (1-10) Eosinophils % (Manual) 0 % (0-3) Basophils % (Manual) 0 % (0-2) Band Neutrophils 0 % (0-8) Platelet Estimate Decreased L Platelet Morphology Normal Hypochromasia 1+ Anisocytosis 1+ Macrocytosis Sodium Level 145 MMOL/L (136-145) Potassium Level 5.0 MMOL/L (3.5-5.1) Chloride Level 108 MMOL/L (98-107) H Carbon Dioxide Level 29 MMOL/L (21-32) Anion Gap 9 mmol/L (5-15) Blood Urea Nitrogen 144 mg/dL (7-18) H Creatinine 3.3 MG/DL (0.55-1.30) H Estimat Glomerular Filtration Rate 17.9 mL/min (>60) Glucose Level 243 MG/DL (74-106) H Calcium Level 7.1 MG/DL (8.5-10.1) L Phosphorus Level 7.4 MG/DL (2.5-4.9) H Magnesium Level 2.2 MG/DL (1.8-2.4) Total Bilirubin 0.6 MG/DL (0.2-1.0) Aspartate Amino Transf (AST/SGOT) 61 U/L (15-37) H Alanine Aminotransferase (ALT/SGPT) 63 U/L (12-78) Alkaline Phosphatase 164 U/L (46-116) H Total Protein 5.1 G/DL (6.4-8.2) L Albumin 1.7 G/DL (3.4-5.0) L Globulin 3.4 g/dL Albumin/Globulin Ratio 0.5 (1.0-2.7) L Current Medications Medications (Trade) Dose Ordered Sig/Violet Route PRN Reason Start Time Stop Time Status Last Admin Dose Admin Acetaminophen (Tylenol) 650 mg Q4H PRN GT Temp >100.5 11/12/20 11:00 12/12/20 10:44 11/18/20 14:55 Ceftriaxone Sodium 1 gm/ Dextrose 55 ml @ 110 mls/hr Q24H IVPB 11/21/20 14:00 11/28/20 13:59 11/22/20 13:46 Chlorhexidine Gluconate (Patt-Hex 2%) 1 applic DAILY@1999 TOPIC 11/17/20 20:00 02/15/21 19:59 11/21/20 21:43 Dextrose 1,000 ml @ 75 mls/hr [id number] IV 11/20/20 22:30 12/20/20 22:29 11/22/20 13:46 Dextrose (Dextrose 50%) 25 ml Q30M PRN IV Hypoglycemia 11/06/20 20:00 02/04/21 19:59 Dextrose (Dextrose 50%) 50 ml Q30M PRN IV Hypoglycemia 11/06/20 20:00 02/04/21 19:59 Docusate Sodium (Colace) 100 mg EVERY 12 HOURS GT 11/17/20 21:00 12/14/20 17:59 11/20/20 19:46 Dopamine HCl/ Dextrose 250 ml @ 0 mls/hr Q24H IV 11/19/20 19:45 11/22/20 19:35 11/20/20 19:46 Fluconazole (Diflucan) 100 mg DAILY GT 11/21/20 13:30 11/28/20 13:29 11/22/20 08:07 Flumazenil (Romazicon) 0.2 mg NEEDED PRN IV Sedation reversal 11/06/20 20:00 Insulin Aspart (NovoLOG) EVERY 6 HOURS SUBQ 11/08/20 12:00 02/05/21 16:29 11/22/20 12:26 Insulin Detemir (Levemir) 20 units EVERY 12 HOURS SUBQ 11/19/20 21:00 02/05/21 20:59 11/22/20 08:10 Methylprednisolone Sodium Succinate (Solu-MEDROL) 40 mg EVERY 12 HOURS IVP 11/18/20 12:30 02/16/21 12:29 11/22/20 08:07 Metoclopramide HCl (Reglan) 5 mg Q6HR IVP 11/14/20 12:26 12/14/20 12:25 11/22/20 12:24 Naloxone HCl (Narcan) 0.4 mg NEEDED PRN IVP RR less than 6/min 11/06/20 20:00 02/04/21 19:59 Ondansetron HCl (Zofran) 4 mg Q6H PRN IVP Nausea & Vomiting 11/06/20 20:00 12/06/20 19:59 Pantoprazole (Protonix) 40 mg DAILY IVP 11/08/20 09:00 12/08/20 08:59 11/22/20 08:07 Polyethylene Glycol (Miralax) 17 gm BEDTIME GT 11/14/20 21:00 12/14/20 20:59 11/20/20 19:46 Gabby White MD Nov 22, 2020 17:36
--- NOTE | 2020-11-22 17:45 | NUR ---
CASE MANAGEMENT: REVIEW 11/22/2020 SI;SEPSIS. COVID PNA. VS: T 98.2 HR 88 RR 30 B/P 103/34 SATS 90% ON MECH VENT FIO2 100 LABS: WBC 19 CL 108 BUN 144 CR 3.3 GLU 243 CA 7.1 PHOS 7.4 IS:DEXTROSE IV @ 75 ML/HR INSULIN ASPART SUBQ AC/HS SOLU MEDROL IV Q12H LEVEMIR SUBQ Q12H DIFLUCAN GT QD DOPAMINE IV PER PARAMETERS CEFTRIAXONE IV Q24H ICU
--- NOTE | 2020-11-22 18:00 | NUR ---
NURSE NOTES: Pt cleaned and repositioned. No distress noted.
--- NOTE | 2020-11-22 18:53 | General Progress Note ---
Subjective Date patient seen: Nov 22, 2020 Allergies: Coded Allergies: No Known Allergies (Unverified , 11/06/20) Subjective Chart review since last seen. Patient continues to be on ventilator. FiO2 100% PEEP of 10. Max vent settings. PH downtrending. Continues to not tolerate HD. Off dopamine this Am. CODE STATUS changed to DNR per family wishes. ROS: unable to obtain due to ALOC Objective Last 24 Hour Vital Signs Date Time Temp Pulse Resp B/P (MAP) Pulse Ox O2 Delivery O2 Flow Rate FiO2 11/22/20 18:30 89 25 94/26 (48) 80 11/22/20 18:00 86 29 107/32 (57) 94 11/22/20 17:00 86 30 104/33 (56) 93 11/22/20 16:00 98.2 88 30 103/34 (57) 90 11/22/20 16:00 Mechanical Ventilator 11/22/20 16:00 90 11/22/20 16:00 100 11/22/20 15:08 86 28 100 11/22/20 15:00 91 30 104/35 (58) 91 11/22/20 14:00 94 31 109/36 (60) 91 11/22/20 13:00 92 31 107/38 (61) 89 11/22/20 12:00 91 11/22/20 12:00 98.4 90 30 111/38 (62) 88 11/22/20 12:00 Mechanical Ventilator 11/22/20 12:00 100 11/22/20 11:10 92 31 100 11/22/20 11:00 92 30 109/37 (61) 82 11/22/20 10:00 92 29 117/35 (62) 84 11/22/20 09:00 92 29 119/36 (63) 89 11/22/20 08:00 Mechanical Ventilator 11/22/20 08:00 100 11/22/20 08:00 94 11/22/20 08:00 98.1 93 29 108/36 (60) 86 11/22/20 07:00 95 28 114/33 (60) 85 11/22/20 06:46 93 29 100 11/22/20 06:00 93 27 118/36 (63) 85 11/22/20 05:00 88 28 124/38 (66) 89 11/22/20 04:48 89 11/22/20 04:00 100 11/22/20 04:00 98.0 86 26 106/37 (60) 88 11/22/20 04:00 Mechanical Ventilator 11/22/20 03:11 83 28 100 11/22/20 03:00 83 28 117/41 (66) 91 11/22/20 02:00 78 30 120/42 (68) 90 11/22/20 01:15 85 30 130/50 (76) 85 11/22/20 01:00 90 30 141/39 (73) 84 11/22/20 01:00 130/50 11/22/20 00:45 91 29 132/41 (71) 82 11/22/20 00:30 92 27 137/37 (70) 80 11/22/20 00:17 93 11/22/20 00:15 93 29 141/39 (73) 77 11/22/20 00:00 Mechanical Ventilator 11/22/20 00:00 97.2 93 29 135/37 (69) 78 11/22/20 00:00 135/37 11/22/20 00:00 100 11/21/20 23:21 92 29 100 11/21/20 23:15 92 29 128/40 (69) 83 11/21/20 23:00 93 30 124/39 (67) 85 11/21/20 23:00 128/40 11/21/20 22:00 119/41 11/21/20 22:00 105 27 119/41 (67) 84 11/21/20 21:45 134/39 11/21/20 21:45 111 27 134/39 (70) 81 11/21/20 21:30 115 27 128/47 (74) 70 11/21/20 21:25 128/47 11/21/20 21:15 119 26 64/42 (49) 11/21/20 21:00 79/42 11/21/20 21:00 114 27 79/42 (54) 11/21/20 20:55 87/38 11/21/20 20:45 97/41 11/21/20 20:30 107 28 109/40 (63) 74 11/21/20 20:25 103/39 11/21/20 20:15 113/38 11/21/20 20:12 91 11/21/20 20:00 97.7 88 26 126/41 (69) 89 11/21/20 20:00 126/41 11/21/20 20:00 100 11/21/20 20:00 Mechanical Ventilator 11/21/20 19:45 125/40 11/21/20 19:28 87 27 100 11/21/20 19:00 98.4 89 28 113/37 (62) 87 11/21/20 19:00 118/41 Intake and Output 11/21/20 11/22/20 19:00 07:00 Intake Total 2873.784 ml 1501.9421 ml Output Total 90 ml 730 ml Balance 2783.784 ml 771.9421 ml Free Water 1200 ml 60 ml IV Total 893.784 ml 661.9421 ml Tube Feeding 780 ml 780 ml Output Urine Total 90 ml 130 ml Stool Total 600 ml # Bowel Movements 103 Laboratory Tests 11/21/20 21:47: POC Whole Blood Glucose 230H 11/22/20 01:01: POC Whole Blood Glucose [Pending] 11/22/20 03:45: White Blood Count 19.0H, Red Blood Count 2.64L, Hemoglobin 8.0L, Hematocrit 27.1L, Mean Corpuscular Volume 103H, Mean Corpuscular Hemoglobin 30.5, Mean Corpuscular Hemoglobin Concent 29.6L, Red Cell Distribution Width 15.5H, Platelet Count 63L, Mean Platelet Volume 8.6, Neutrophils (%) (Auto) , Lymphocytes (%) (Auto) , Monocytes (%) (Auto) , Eosinophils (%) (Auto) , Basophils (%) (Auto) , Differential Total Cells Counted 100, Neutrophils % (Manual) 95H, Lymphocytes % (Manual) 4L, Monocytes % (Manual) 1, Eosinophils % (Manual) 0, Basophils % (Manual) 0, Band Neutrophils 0, Platelet Estimate DecreasedL, Platelet Morphology Normal, Hypochromasia 1+, Anisocytosis 1+, Macrocytosis , Sodium Level 145, Potassium Level 5.0, Chloride Level 108H, Carbon Dioxide Level 29, Anion Gap 9, Blood Urea Nitrogen 144H, Creatinine 3.3H, Estimat Glomerular Filtration Rate 17.9, Glucose Level 243H, Calcium Level 7.1L , Phosphorus Level 7.4H, Magnesium Level 2.2, Total Bilirubin 0.6, Aspartate Amino Transf (AST/SGOT) 61H, Alanine Aminotransferase (ALT/SGPT) 63, Alkaline Phosphatase 164H, Total Protein 5.1L, Albumin 1.7L, Globulin 3.4, Albumin/Globulin Ratio 0.5L 11/22/20 05:44: POC Whole Blood Glucose [Pending] 11/22/20 17:30: Arterial Blood pH 7.103*L, Arterial Blood Partial Pressure CO2 89.0*H, Arterial Blood Partial Pressure O2 63.9L, Arterial Blood HCO3 27.2H, Arterial Blood Oxygen Saturation 86.7*L, Arterial Blood Base Excess -3.1L, Jonathan Test Positive Height (Feet): 6 Height (Inches): 1.00 Weight (Pounds): 190 Objective Exam limited due to COVID status and to conserve PPE. Per discussion with RN. General: Male A&o x 0 On intubated, sedated, moving all extremities spontaneously off sedation HEENT: Normocephalic cephalic atraumatic, pupils equal round reactive to light and accommodation, nares patent and no symmetrical, no tonsillar exudates, muco us membranes moist CV: Regular rate regular rhythm, no murmurs, rubs, or gallops Pulm: Lungs coarse breath sounds bilaterally. No wheezes, rhonchi, or rales GI: Soft, nontender, nondistended, bowel sounds present Neuro: Moving all extremities Ext: No lower extremity edema bilaterally Skin: no rashes lesions or ulcers Msk: Joints symmetrical in upper extremity and lower extremity bilaterally, no joint swelling. Lymph: No lymphadenopathy in upper extremity and lower extremity Assessment/Plan Status: stable Assessment/Plan: 84 yo M w DM2, HTN, ? CKD admitted for Covid19 PNA with SAMEER: #Septic shock #Acute hypoxemia Resp failure 2/2 covid PNA - + , Intubated # Covid PNA - #Pneumomediastinum Appreciate ID/Pulm - S/P CVC placement - AB now are Zosyn and Micafungin per ID (s/p Vanco) - Continue Solumedrol IV - CXR with improvement with pneumomediastinum - Pressor support w/ Dopamine and Levophed, Propfol for Sedation, monitor TG - NG tube 11/07 for meds. start tube feeding - IV fluids per nephro - DVT/GI ppx - s/p decadron 6mg iv daily - s/p Remdesivir per ID (11/09 started) - s/p azithromycin (11/08 started ) - s/p Vancomycin (11/09 started) #Acute Renal Failure now Requiring HD -Appreciate Nephro -S/P Ray, Initiate HD 11/20 -Hoping this will help the pulmonary edema/fluid shifting -Douglas Cath; Strict I/O -lasix drip per Pulm/Nephro #S. hominis bacteremia, Contaminant? Defer to ID Appreciate ID AB as above #Anemia - GI consult Dr. Saavedra - PPI, Monitor for GIB #thrombocytopenia - consider Heme consult - d/w primary team - monitor for signs of bleeding #DM2 uncontrolled - Adjust long acting daily to maintain blood sugar 180 or less - SSI, Accuchecks Q6 w/ tube feeds - Requirements will be increased while on steroids DVTPPX: per primary GI PPX: protonix Fluids: per nephro Diet: NPO, tube feedings PT/OT: deferred Code status:DNAR Dispo: SNF eventually. Guarded prognosis. Family aware Reason for Continued Hospitalization: Hypoxia Time of my involvement, the patient's condition was critical with high potential for and/or physiologic deterioration secondary to septic shock, acute hypoxic respiratory failure as delineated in the note above. On the above date of service, I spent a total of 37 minutes in the ICU evaluating, managing, and providing critical care services to this patient, including time spent documenting these activities, counseling patient/family, and coordinating care. Critical care services performed include: -Telemetry review -Hemodynamic measurement interpretation -Laboratory data review and interpretation -Vent setting reviewed, management -Discussion of care plans with patient, family, and/or surrogate decision makers -Discussion of patient's care with primary medical team, surgical team, and/or consulting service -Decision to obtain further radiologic evaluation, after consideration of the risk/benefit ratio -Review of most recent microbiology results assessment and modification of antimicrobial coverage -Discussion of patient's CODE STATUS and further advancement towards the ultimate goals of care. Plan outlined above discussed with patient/family, VIDEO RENTAL CLERK, ICU team, and involved physician/consultants. Time of note not necessarily time patient was seen Bakari Lucio D.O. Nov 22, 2020 18:53
--- NOTE | 2020-11-22 18:54 | NUR ---
NURSE HAND-OFF REPORT: Latest Vital Signs: Temperature 98.2 , Pulse 89 , B/P 80 /32 , Respiratory Rate 25 , O2 SAT 80 , Mechanical Ventilator, FiO2 100% . Vital Sign Comment: dopa started for BP in the 80s Message left for Dr Gaspar with 1800 ABG results. Awiating call back. Endorsed to LYNDA Belle. EKG Rhythm: Sinus Rhythm Rhythm change?: N MD Notified?: n/a MD Response: n/a Latest Blackwell Fall Score: 50 Fall Risk: High Risk Safety Measures: Call light Within Reach, Bed Alarm Zone 1, Side Rails Side Rails x3, Bed position Low and Locked. Fall Precautions: Yellow Socks Yellow Gown Door Sign Patient Fall Education Report given to LYNDA Belle.
--- NOTE | 2020-11-22 19:10 | NUR ---
NURSE NOTES: Received patient from LYNDA Hutchinson. Will continue plan of care.
--- NOTE | 2020-11-22 19:30 | NUR ---
NURSE NOTES: Relayed ABG results to Dr. Gaspar, no changes to vent settings at the moment.
--- NOTE | 2020-11-22 19:39 | NUR ---
NURSE NOTES: HD started by LYNDA Colby. Will monitor
[2020-11-22] MEDS: Dyna-Hex 2% Top Sol 2oz TOPIC SCH (20:00)
--- NOTE | 2020-11-22 20:00 | NUR ---
NURSE NOTES: Patient is not responsive, does not opens eyes and does not move. Intubated; ETT 7.5 @ 25cm to the right lipline to vent with settings of AC:18, TV:450, PEEP:10, FiO2:100%. OGT running Nepro @ 40ml/hr and tolerating. Douglas catheter and rectal tube in place and draining. Right upper arm PICC running D5W @ 75ml/hr and Dopamine @ 2mcgs/min., right femoral ester w/ pigtail for HD. Awaiting HD at the moment. Bed low, locked and alarm is on.
[2020-11-22] MEDS: Miralax 17gm pkt GT SCH (21:00)
[2020-11-22] MEDS: DOPamine 400mg/250ml 250 ML IV SCH (21:13)
--- NOTE | 2020-11-22 21:15 | NUR ---
NURSE NOTES: HD stopped, patient became hypotensive on Dopamine and also hypoxic. Tolerated about 2 hours and 500ml out
--- NOTE | 2020-11-22 22:00 | NUR ---
NURSE NOTES: BP:85/33, HR:96, O2sat:72%. Will increase Dopamine
[2020-11-23] VITALS (50 sets, daily range): BP systolic 54–125; BP diastolic 15–54
--- NOTE | 2020-11-23 | NUR ---
NURSE NOTES: No changes in patient condition. Dopamine continues at 4mcgs and will titrate down as tolerated.
--- NOTE | 2020-11-23 02:00 | NUR ---
NURSE NOTES: Repositioned and suctioning provided.
--- NOTE | 2020-11-23 04:00 | NUR ---
NURSE NOTES: Bed bath given, linens changed, turned/ repositioned, oral care and suction done.
[2020-11-23 05:06] LABS: ALBUMIN 1.6 G/DL (3.4-5.0); ALBUMIN/GLOBULIN RATIO 0.5 (1.0-2.7); BILIRUBIN,TOTAL 0.6 MG/DL (0.2-1.0); CALCIUM 7.2 MG/DL (8.5-10.1); CREATININE 3.3 MG/DL (0.55-1.30); POTASSIUM 4.7 MMOL/L (3.5-5.1)
[2020-11-23] MEDS: Metoclopramide 10mg/2ml Inj IVP SCH ×4 (05:19→18:11)
[2020-11-23] MEDS: NovoLOG Insulin Flexpen SUBQ SCH ×4 (05:20→18:36)
[2020-11-23 05:29] LABS: HEMATOCRIT 28.1 % (42.0-52.0); HEMOGLOBIN 8.8 G/DL (14.2-18.0); MEAN CORPUSCULAR VOLUME 102 FL (80-99); PLATELET COUNT 79 K/UL (150-450); RED BLOOD COUNT 2.76 M/UL (4.70-6.10); RED CELL DISTRIBUTION WIDTH 15.4 % (11.6-14.8)
[2020-11-23 05:30] LABS: WHITE BLOOD COUNT 27.5 K/UL (4.8-10.8)
--- NOTE | 2020-11-23 05:30 | NUR ---
NURSE NOTES: Patient is not receiving adequate volume via vent. Leak in ETT, awaiting to re-intubate.
--- NOTE | 2020-11-23 06:00 | NUR ---
NURSE NOTES: Informed ER MD that it is a emergent situation that patient needs re-intubation. ER MD here and re-intubated.
--- NOTE | 2020-11-23 06:15 | NUR ---
NURSE NOTES: Dopamine max to 20mcg; patient became hypotensive (SBP<60) and bradycardic (HR<50).
--- NOTE | 2020-11-23 07:28 | NUR ---
NURSE HAND-OFF REPORT: Latest Vital Signs: Temperature 97.0 , Pulse 97 , B/P 98 /41 , Respiratory Rate 20 , O2 SAT 53 , Mechanical Ventilator, O2 Flow Rate . Vital Sign Comment: EKG Rhythm: PEA Rhythm change?: N Notified?: Y -Dr Wanda WILLS Response: No New Orders Received Latest Blackwell Fall Score: 50 Fall Risk: High Risk Safety Measures: Call light Within Reach, Bed Alarm Zone 1, Side Rails Side Rails x3, Bed position Low and Locked. Fall Precautions: Yellow Socks Yellow Gown Door Sign Patient Fall Education Report given to .
--- NOTE | 2020-11-23 07:29 | NUR ---
NURSE NOTES: Received pt from LYNDA Belle. pt s/p re-intubation. Awaiting chest x-ray to verify placement. Pt SpO2 difficult to obtain. 95% when is reads but connection is poor. Will trouble shoot. Blood pressure WNL on dopamine drip. Pt showing A fib on the bus driver/monitor at this time. Pt does not respond to name or touch but does close mouth when oral care done. Pt does not open eyes. No withdraw to pain. Pulses present. Hands and feet cool to touch. Pt NPO post re-intubation. Will resume when pt stable. Rectal tube in place. Douglas in place. Right upper arm PICC noted. Skin intact with right arm weeping. Generalized edema noted +2 pitting. dopamine running at 20mcg/min. Right fem ester noted. Dressing dry and intact. Oral care and repositioning done.
--- NOTE | 2020-11-23 08:04 | NUR ---
NURSE NOTES: Pt ventilator alarming. Audible air coming out around ET tube. RT notified. Problem appears resolved. Pt SpO2 remains difficult to monitor. Connection is poor possible due to pt poor circulation. Will apply warm pack when possible. Stat chest x-ray being obtained at this time.
[2020-11-23] MEDS: Docusate 100mg/10ml Liq GT SCH ×2 (08:27→21:00)
[2020-11-23] MEDS: Solu-MEDROL 40mg Inj IVP SCH ×2 (08:28→21:00)
[2020-11-23] MEDS: Pantoprazole Inj IVP SCH (08:28)
[2020-11-23] MEDS: Fluconazole 100mg tab GT SCH (08:29)
[2020-11-23] MEDS: DOPamine 400mg/250ml 250 ML IV SCH ×4 (08:31→22:00)
--- NOTE | 2020-11-23 08:33 | Diagnostic Imaging Report ---
EXAM: XR Chest, 1 View CLINICAL HISTORY: TUBE PLCMT TECHNIQUE: Frontal view of the chest. COMPARISON: Chest radiograph November 21, 2020 FINDINGS/IMPRESSION: Endotracheal tube terminates approximately 10.5 cm above the brittany (previously 6.8 cm above the brittany). Advancement by approximately 5 cm it is recommended. Enteric feeding tube terminates in the stomach. EKG leads overlie the patient. Small bilateral pleural effusions, left greater than right. Bilateral airspace consolidations, consistent with multifocal infiltrate. Overall, these findings are mildly worse now compared to previous study. A follow-up chest radiograph recommended. Cardiomegaly. Calcified aorta.
[2020-11-23] MEDS: Levemir Flexpen SUBQ SCH ×2 (08:34→21:00)
--- NOTE | 2020-11-23 08:35 | NUR ---
PT NPO post re-intubation. Levemir 10 unit given. 1/2 dose per order.
--- NOTE | 2020-11-23 08:42 | Nephrology Progress Note ---
Assessment/Plan Plan #SAMEER on CKD- likely pre-renal azotemia in the setting of sepsis- now progressing to ATN - concerns for #hypnatremia # acute hypoxemia Resp failure 2/2 covid PNA requiring BIPAP # Covid PNA # Lactic acid elevation # Malnutrition #HTN, current normotensive # elevated D dimer # Trop elevated # DM2 uncontrolled - patient encephalopathic- concerns or uremia given uptrending BUN HD terminated yesterday due to hemodynamic instability will try again today - continue pressors to maintain MAP > 65 - continue free water flushes [id number] - DC bicarb drip - intubated - monitor volume status - monitor ABG - monitor BMP, mag and phos daily - strict I&Os - daily weights - echo - defer renal US - antibiotic per ID time spent 65min Subjective ROS Limited/Unobtainable: Yes Subjective s/p HD yesterday - again terminated early due to hemodynamic instability will try again today volume overloaded on pressors - on levo and dopa Objective Objective Last 24 Hour Vital Signs Date Time Temp Pulse Resp B/P (MAP) Pulse Ox O2 Delivery O2 Flow Rate FiO2 11/23/20 08:31 94/38 11/23/20 08:00 100 11/23/20 08:00 97.9 87 23 103/34 (57) 11/23/20 07:45 86 23 107/33 (57) 63 11/23/20 07:30 87 23 93/38 (56) 11/23/20 07:15 97 20 98/41 (60) 11/23/20 07:00 97 19 103/30 (54) 11/23/20 06:25 29 15 59/15 (30) 11/23/20 06:17 58 22 66/35 (45) 11/23/20 06:15 78 19 74/25 (41) 53 11/23/20 06:13 53 22 94/29 (50) 11/23/20 06:00 98 29 95/29 (51) 11/23/20 06:00 94/29 11/23/20 05:30 96 29 82/52 (62) 78 11/23/20 05:00 99/34 11/23/20 05:00 95 28 96/40 (58) 11/23/20 04:30 97 29 98/54 (69) 90 11/23/20 04:00 97 30 109/30 (56) 87 11/23/20 04:00 Mechanical Ventilator 11/23/20 04:00 114/36 11/23/20 04:00 100 11/23/20 04:00 78 11/23/20 03:30 97 29 105/44 (64) 85 11/23/20 03:15 99 29 111/31 (57) 84 11/23/20 03:00 111/31 11/23/20 03:00 101 29 119/38 (65) 83 11/23/20 02:00 99 27 119/32 (61) 83 11/23/20 02:00 117/45 11/23/20 01:30 92 25 100 11/23/20 01:00 100 27 125/34 (64) 85 11/23/20 01:00 127/35 11/23/20 00:04 98 11/23/20 00:00 97.0 98 28 111/32 (58) 88 11/23/20 00:00 Mechanical Ventilator 11/23/20 00:00 115/34 11/23/20 00:00 100 11/22/20 23:45 98 28 111/34 (59) 87 11/22/20 23:30 98 29 103/42 (62) 85 11/22/20 23:15 98 29 103/34 (57) 84 11/22/20 23:00 98 30 101/42 (61) 82 11/22/20 23:00 101/42 11/22/20 22:45 100 30 107/40 (62) 86 11/22/20 22:30 98 30 89/37 (54) 86 11/22/20 22:21 97 28 85/33 (50) 86 11/22/20 22:15 94 30 83/40 (54) 86 11/22/20 22:00 86/23 11/22/20 22:00 98 29 80/35 (50) 86 11/22/20 21:45 100 29 96/36 (56) 60 11/22/20 21:45 96/36 11/22/20 21:30 126/44 11/22/20 21:30 100 27 126/44 (71) 90 11/22/20 21:15 101 27 140/50 (80) 90 11/22/20 21:13 80/36 11/22/20 21:00 101 27 134/47 (76) 90 11/22/20 20:58 102 27 134/32 (66) 90 11/22/20 20:55 105 26 78/41 (53) 90 11/22/20 20:48 104 27 87/51 (63) 90 11/22/20 20:45 102 28 80/36 (51) 90 11/22/20 20:30 99 27 92/50 (64) 90 11/22/20 20:15 97 28 103/39 (60) 90 11/22/20 20:00 100 11/22/20 20:00 Mechanical Ventilator 11/22/20 20:00 97.6 95 25 108/43 (64) 90 11/22/20 19:52 88 27 100 11/22/20 19:45 97 11/22/20 19:00 91 28 116/41 (66) 81 11/22/20 19:00 116/41 11/22/20 18:45 84 29 96/32 (53) 80 11/22/20 18:30 89 25 94/26 (48) 80 11/22/20 18:30 80/32 11/22/20 18:00 86 29 107/32 (57) 94 11/22/20 17:00 86 30 104/33 (56) 93 11/22/20 16:00 98.2 88 30 103/34 (57) 90 11/22/20 16:00 Mechanical Ventilator 11/22/20 16:00 90 11/22/20 16:00 100 11/22/20 15:08 86 28 100 11/22/20 15:00 91 30 104/35 (58) 91 11/22/20 14:00 94 31 109/36 (60) 91 11/22/20 13:00 92 31 107/38 (61) 89 11/22/20 12:00 91 11/22/20 12:00 98.4 90 30 111/38 (62) 88 11/22/20 12:00 Mechanical Ventilator 11/22/20 12:00 100 11/22/20 11:10 92 31 100 11/22/20 11:00 92 30 109/37 (61) 82 11/22/20 10:00 92 29 117/35 (62) 84 11/22/20 09:00 92 29 119/36 (63) 89 Intake and Output 11/22/20 11/23/20 19:00 07:00 Intake Total 2131.232 ml 1075.75886 ml Output Total 60 ml 500 ml Balance 2071.232 ml 575.61069 ml Free Water 1200 ml IV Total 451.232 ml 675.56968 ml Tube Feeding 480 ml 400 ml Output Urine Total 10 ml 0 ml Stool Total 50 ml Hemodialysis UF 500 ml Laboratory Tests 11/22/20 17:30: Arterial Blood pH 7.103*L, Arterial Blood Partial Pressure CO2 89.0*H, Arterial Blood Partial Pressure O2 63.9L, Arterial Blood HCO3 27.2H, Arterial Blood Oxygen Saturation 86.7*L, Arterial Blood Base Excess -3.1L, Jonathan Test Positive 11/22/20 21:27: POC Whole Blood Glucose [Pending] 11/23/20 01:21: POC Whole Blood Glucose [Pending] 11/23/20 04:00: White Blood Count 27.5*H, Red Blood Count 2.76L, Hemoglobin 8.8L, Hematocrit 28.1L, Mean Corpuscular Volume 102H, Mean Corpuscular Hemoglobin 31.8H, Mean Corpuscular Hemoglobin Concent 31.2L, Red Cell Distribution Width 15.4H, Platelet Count 79L, Mean Platelet Volume 10.1, Neutrophils (%) (Auto) , Lymphocytes (%) (Auto) , Monocytes (%) (Auto) , Eosinophils (%) (Auto) , Basophils (%) (Auto) , Neutrophils % (Manual) [Pending], Lymphocytes % (Manual) [Pending], Platelet Estimate [Pending], Platelet Morphology [Pending], Sodium Level 141, Potassium Level 4.7, Chloride Level 104, Carbon Dioxide Level 28, Anion Gap 9, Blood Urea Nitrogen 115H, Creatinine 3.3H, Estimat Glomerular Filtration Rate 17.9, Glucose Level 343#H, Calcium Level 7.2L, Total Bilirubin 0.6, Aspartate Amino Transf (AST/SGOT) 64H, Alanine Aminotransferase (ALT/SGPT) 73, Alkaline Phosphatase 200H, Total Protein 5.0L, Albumin 1.6L, Globulin 3.4, Albumin/Globulin Ratio 0.5L 11/23/20 05:16: POC Whole Blood Glucose [Pending] Height (Feet): 6 Height (Inches): 1.00 Weight (Pounds): 190 Objective General Appearance: other - intubated EENT: PERRL/EOMI, normal ENT inspection Neck: non-tender, normal alignment Cardiovascular: normal peripheral pulses, tachycardia Respiratory/Chest: chest wall non-tender, rhonchi - bilaterally Abdomen: normal bowel sounds, non tender Extremities: pitting Neurologic: unresponsive Kulwant Hong M.D. Nov 23, 2020 08:41
--- NOTE | 2020-11-23 09:48 | Pulmonology Progress Note ---
Subjective ROS Limited/Unobtainable: Yes Interval Events: Underwent HD yesterday Constitutional: Denies: fever HEENT: Repors: no symptoms Respiratory: Reports: no symptoms Cardiovascular: Reports: no symptoms Gastrointestinal/Abdominal: Reports: no symptoms Genitourinary: Reports: no symptoms Allergies: Coded Allergies: No Known Allergies (Unverified , 11/06/20) Objective Last 24 Hour Vital Signs Date Time Temp Pulse Resp B/P (MAP) Pulse Ox O2 Delivery O2 Flow Rate FiO2 11/23/20 08:31 94/38 11/23/20 08:00 84 11/23/20 08:00 100 11/23/20 08:00 97.9 87 23 103/34 (57) 11/23/20 08:00 Mechanical Ventilator 11/23/20 07:45 86 23 107/33 (57) 63 11/23/20 07:30 87 23 93/38 (56) 11/23/20 07:15 97 20 98/41 (60) 11/23/20 07:00 97 19 103/30 (54) 11/23/20 06:25 29 15 59/15 (30) 11/23/20 06:17 58 22 66/35 (45) 11/23/20 06:15 78 19 74/25 (41) 53 11/23/20 06:13 53 22 94/29 (50) 11/23/20 06:00 98 29 95/29 (51) 11/23/20 06:00 94/29 11/23/20 05:30 96 29 82/52 (62) 78 11/23/20 05:00 99/34 11/23/20 05:00 95 28 96/40 (58) 11/23/20 04:30 97 29 98/54 (69) 90 11/23/20 04:00 97 30 109/30 (56) 87 11/23/20 04:00 Mechanical Ventilator 11/23/20 04:00 114/36 11/23/20 04:00 100 11/23/20 04:00 78 11/23/20 03:30 97 29 105/44 (64) 85 11/23/20 03:15 99 29 111/31 (57) 84 11/23/20 03:00 111/31 11/23/20 03:00 101 29 119/38 (65) 83 11/23/20 02:00 99 27 119/32 (61) 83 11/23/20 02:00 117/45 11/23/20 01:30 92 25 100 11/23/20 01:00 100 27 125/34 (64) 85 11/23/20 01:00 127/35 11/23/20 00:04 98 11/23/20 00:00 97.0 98 28 111/32 (58) 88 11/23/20 00:00 Mechanical Ventilator 11/23/20 00:00 115/34 11/23/20 00:00 100 11/22/20 23:45 98 28 111/34 (59) 87 11/22/20 23:30 98 29 103/42 (62) 85 11/22/20 23:15 98 29 103/34 (57) 84 11/22/20 23:00 98 30 101/42 (61) 82 11/22/20 23:00 101/42 11/22/20 22:45 100 30 107/40 (62) 86 11/22/20 22:30 98 30 89/37 (54) 86 11/22/20 22:21 97 28 85/33 (50) 86 11/22/20 22:15 94 30 83/40 (54) 86 11/22/20 22:00 86/23 11/22/20 22:00 98 29 80/35 (50) 86 11/22/20 21:45 100 29 96/36 (56) 60 11/22/20 21:45 96/36 11/22/20 21:30 126/44 11/22/20 21:30 100 27 126/44 (71) 90 11/22/20 21:15 101 27 140/50 (80) 90 11/22/20 21:13 80/36 11/22/20 21:00 101 27 134/47 (76) 90 11/22/20 20:58 102 27 134/32 (66) 90 11/22/20 20:55 105 26 78/41 (53) 90 11/22/20 20:48 104 27 87/51 (63) 90 11/22/20 20:45 102 28 80/36 (51) 90 11/22/20 20:30 99 27 92/50 (64) 90 11/22/20 20:15 97 28 103/39 (60) 90 11/22/20 20:00 100 11/22/20 20:00 Mechanical Ventilator 11/22/20 20:00 97.6 95 25 108/43 (64) 90 11/22/20 19:52 88 27 100 11/22/20 19:45 97 11/22/20 19:00 91 28 116/41 (66) 81 11/22/20 19:00 116/41 11/22/20 18:45 84 29 96/32 (53) 80 11/22/20 18:30 89 25 94/26 (48) 80 11/22/20 18:30 80/32 11/22/20 18:00 86 29 107/32 (57) 94 11/22/20 17:00 86 30 104/33 (56) 93 11/22/20 16:00 98.2 88 30 103/34 (57) 90 11/22/20 16:00 Mechanical Ventilator 11/22/20 16:00 90 11/22/20 16:00 100 11/22/20 15:08 86 28 100 11/22/20 15:00 91 30 104/35 (58) 91 11/22/20 14:00 94 31 109/36 (60) 91 11/22/20 13:00 92 31 107/38 (61) 89 11/22/20 12:00 91 11/22/20 12:00 98.4 90 30 111/38 (62) 88 11/22/20 12:00 Mechanical Ventilator 11/22/20 12:00 100 11/22/20 11:10 92 31 100 11/22/20 11:00 92 30 109/37 (61) 82 11/22/20 10:00 92 29 117/35 (62) 84 Intake and Output 11/22/20 11/23/20 19:00 07:00 Intake Total 2131.232 ml 1075.63171 ml Output Total 60 ml 500 ml Balance 2071.232 ml 575.05625 ml Free Water 1200 ml IV Total 451.232 ml 675.62050 ml Tube Feeding 480 ml 400 ml Output Urine Total 10 ml 0 ml Stool Total 50 ml Hemodialysis UF 500 ml General Appearance: no acute distress HEENT: normocephalic Respiratory: chest wall non-tender, lungs clear Cardiovascular: normal peripheral pulses, normal rate Abdomen: normal bowel sounds Laboratory Tests 11/22/20 17:30: Arterial Blood pH 7.103*L, Arterial Blood Partial Pressure CO2 89.0*H, Arterial Blood Partial Pressure O2 63.9L, Arterial Blood HCO3 27.2H, Arterial Blood Oxygen Saturation 86.7*L, Arterial Blood Base Excess -3.1L, Jonathan Test Positive 11/22/20 21:27: POC Whole Blood Glucose [Pending] 11/23/20 01:21: POC Whole Blood Glucose [Pending] 11/23/20 04:00: White Blood Count 27.5*H, Red Blood Count 2.76L, Hemoglobin 8.8L, Hematocrit 28.1L, Mean Corpuscular Volume 102H, Mean Corpuscular Hemoglobin 31.8H, Mean Corpuscular Hemoglobin Concent 31.2L, Red Cell Distribution Width 15.4H, Platelet Count 79L, Mean Platelet Volume 10.1, Neutrophils (%) (Auto) , Lympho cytes (%) (Auto) , Monocytes (%) (Auto) , Eosinophils (%) (Auto) , Basophils (%) (Auto) , Neutrophils % (Manual) [Pending], Lymphocytes % (Manual) [Pending], Platelet Estimate [Pending], Platelet Morphology [Pending], Sodium Level 141, Potassium Level 4.7, Chloride Level 104, Carbon Dioxide Level 28, Anion Gap 9, Blood Urea Nitrogen 115H, Creatinine 3.3H, Estimat Glomerular Filtration Rate 17.9, Glucose Level 343#H, Calcium Level 7.2L, Total Bilirubin 0.6, Aspartate Amino Transf (AST/SGOT) 64H, Alanine Aminotransferase (ALT/SGPT) 73, Alkaline Phosphatase 200H, Total Protein 5.0L, Albumin 1.6L, Globulin 3.4, Albumin/Globulin Ratio 0.5L 11/23/20 05:16: POC Whole Blood Glucose [Pending] Current Medications Medications (Trade) Dose Ordered Sig/Violet Route PRN Reason Start Time Stop Time Status Last Admin Dose Admin Acetaminophen (Tylenol) 650 mg Q4H PRN GT Temp >100.5 11/12/20 11:00 12/12/20 10:44 11/18/20 14:55 Ceftriaxone Sodium 1 gm/ Dextrose 55 ml @ 110 mls/hr Q24H IVPB 11/21/20 14:00 11/28/20 13:59 11/22/20 13:46 Chlorhexidine Gluconate (Patt-Hex 2%) 1 applic DAILY@2000 TOPIC 11/17/20 20:00 02/15/21 19:59 11/22/20 20:00 Dextrose 1,000 ml @ 75 mls/hr [id number] IV 11/20/20 22:30 12/20/20 22:29 11/23/20 04:00 Dextrose (Dextrose 50%) 25 ml Q30M PRN IV Hypoglycemia 11/06/20 20:00 02/04/21 19:59 Dextrose (Dextrose 50%) 50 ml Q30M PRN IV Hypoglycemia 11/06/20 20:00 02/04/21 19:59 Docusate Sodium (Colace) 100 mg EVERY 12 HOURS GT 11/17/20 21:00 12/14/20 17:59 11/20/20 19:46 Dopamine HCl/ Dextrose 250 ml @ 0 mls/hr Q24H IV 11/22/20 21:00 11/25/20 21:00 11/23/20 08:31 Fluconazole (Diflucan) 100 mg DAILY GT 11/21/20 13:30 11/28/20 13:29 11/23/20 08:29 Flumazenil (Romazicon) 0.2 mg NEEDED PRN IV Sedation reversal 11/06/20 20:00 Insulin Aspart (NovoLOG) EVERY 6 HOURS SUBQ 11/08/20 12:00 02/05/21 16:29 11/23/20 05:20 Insulin Detemir (Levemir) 20 units EVERY 12 HOURS SUBQ 11/19/20 21:00 02/05/21 20:59 11/23/20 08:34 Methylprednisolone Sodium Succinate (Solu-MEDROL) 40 mg EVERY 12 HOURS IVP 11/18/20 12:30 02/16/21 12:29 11/23/20 08:28 Metoclopramide HCl (Reglan) 5 mg Q6HR IVP 11/14/20 12:26 12/14/20 12:25 11/23/20 05:19 Naloxone HCl (Narcan) 0.4 mg NEEDED PRN IVP RR less than 6/min 11/06/20 20:00 02/04/21 19:59 Ondansetron HCl (Zofran) 4 mg Q6H PRN IVP Nausea & Vomiting 11/06/20 20:00 12/06/20 19:59 Pantoprazole (Protonix) 40 mg DAILY IVP 11/08/20 09:00 12/08/20 08:59 11/23/20 08:28 Polyethylene Glycol (Miralax) 17 gm BEDTIME GT 11/14/20 21:00 12/14/20 20:59 11/20/20 19:46 Assessment/Plan Assessment/Plan IMPRESSION: 1. COVID-19 pneumonia. 2. Diabetes mellitus. 3. Hypertension. 4. Hyperkalemia. 5. CKD. 6. Metabolic acidosis. 7. Respiratory Failure; Acute Lung Injury 9. AMS; very poorly responsive 10. anemia DISCUSSION: Continue broad-spectrum antibiotics. Continue vent/AC mode Currently FiO2 100%; Continue current rate and volumes ABG reviewed; has combined respiratory and metabolic acidosis -> bicarb drip was DC'd PEEP decreased to 10 Endo tracheal tube adjusted again yesterday Had to be repositioned; leaking cuff noted CXR shows fine appearing interstitial infiltrates Suspect either secondary infection or fluid Will continue Vanco and fluconazole Agree with HD -> dialysis yesterday; another session scheduled for today Blood sugar control, Continue Decadron -> now on Solu-Medrol Off propofol Check labs and ABG AM CXR unchanged Noted neurology evaluation Nov 22, 2020 14:10 Rahat Gaspar MD Nov 22, 2020 15:40 Jud Werner Omar Syed MD Nov 23, 2020 09:48
--- NOTE | 2020-11-23 09:57 | Emergency Room Report ---
History of Present Illness General Chief Complaint: Dyspnea/Respdistress Source: Medical Record, PMD Present Illness Allergies: Coded Allergies: No Known Allergies (Unverified , 11/06/20) COVID-19 Screening Contact w/high risk pt: Yes Experienced COVID-19 symptoms?: Yes COVID-19 Testing performed PLANT BUYER: No COVID-19 Screening: Positive COVID-19 Nursing Documentation-PMH Past Medical History: No History, Except For Hx Cardiac Problems: Yes Hx Hypertension: Yes Hx Diabetes: Yes Hx Cancer: No Hx Gastrointestinal Problems: No Hx Neurological Problems: Yes Hx Concentration Difficulty: Yes Hx Fatigue: Yes Hx Neurologic Surgery: No Physical Exam Vital Signs Date Time Temp Pulse Resp B/P (MAP) Pulse Ox O2 Delivery O2 Flow Rate FiO2 11/19/20 07:00 130/20 11/19/20 07:00 89 30 96 11/19/20 07:25 100 11/19/20 08:00 Mechanical Ventilator 11/19/20 08:00 98.3 Procedures Intubation Intubation : Consent: Emergent Intubation Method: orotracheal Tube Size (cm): 7.5 Breath Sounds after Intubation: equal Intubation Complications: no complications Post Intubation Xray: Yes Attempts: One Progress This was a tube exchange. An existing ET tube was removed and a new endotracheal tube was placed over a bougie. Placement confirmed by x-ray. Medical Decision Making Diagnostic Impression: Primary Impression: COVID-19 Additional Impressions: ARDS (adult respiratory distress syndrome) Hypoxemia Renal failure Elevated troponin Last Vital Signs Date Time Temp Pulse Resp B/P (MAP) Pulse Ox O2 Delivery O2 Flow Rate FiO2 11/23/20 08:31 94/38 11/23/20 08:00 84 11/23/20 08:00 100 11/23/20 08:00 97.9 23 11/23/20 08:00 Mechanical Ventilator 11/23/20 07:45 63 Disposition: ADMITTED INPATIENT Condition: Critical Referrals: [facility],REFERRING (PCP) Oswaldo Augustine M.D. Nov 23, 2020 09:57
--- NOTE | 2020-11-23 11:24 | NUR ---
1040 PT SEEN BY HEATHER SOLIS BEDSIDE REPORT GIVEN NO NEW ORDERS
--- NOTE | 2020-11-23 11:37 | Neurology Progress Note ---
Interim History Interim History ROS Limited/Unobtainable: Yes Events: scheduled for HD today off bicarb Objective Physical Exam Last Vital Signs Date Time Temp Pulse Resp B/P (MAP) Pulse Ox O2 Delivery O2 Flow Rate FiO2 11/23/20 11:00 78 27 105/31 (55) 81 11/23/20 08:00 100 11/23/20 08:00 97.9 11/23/20 08:00 Mechanical Ventilator Laboratory Tests Test 11/22/20 17:30 11/22/20 21:27 11/23/20 01:21 11/23/20 04:00 Arterial Blood pH 7.103 (7.350-7.450) Arterial Blood Partial Pressure CO2 89.0 mmHg (35.0-45.0) *H Arterial Blood Partial Pressure O2 63.9 mmHg (75.0-100.0) L Arterial Blood HCO3 27.2 mmol/L (22.0-26.0) H Arterial Blood Oxygen Saturation 86.7 % (95-100) *L Arterial Blood Base Excess -3.1 (-2-2) L Jonathan Test Positive POC Whole Blood Glucose Pending Pending White Blood Count 27.5 K/UL (4.8-10.8) *H Red Blood Count 2.76 M/UL (4.70-6.10) L Hemoglobin 8.8 G/DL (14.2-18.0) L Hematocrit 28.1 % (42.0-52.0) L Mean Corpuscular Volume 102 FL (80-99) H Mean Corpuscular Hemoglobin 31.8 PG (27.0-31.0) H Mean Corpuscular Hemoglobin Concent 31.2 G/DL (32.0-36.0) L Red Cell Distribution Width 15.4 % (11.6-14.8) H Platelet Count 79 K/UL (150-450) L Mean Platelet Volume 10.1 FL (6.5-10.1) Neutrophils (%) (Auto) % (45.0-75.0) Lymphocytes (%) (Auto) % (20.0-45.0) Monocytes (%) (Auto) % (1.0-10.0) Eosinophils (%) (Auto) % (0.0-3.0) Basophils (%) (Auto) % (0.0-2.0) Differential Total Cells Counted 100 Neutrophils % (Manual) 97 % (45-75) H Lymphocytes % (Manual) 2 % (20-45) L Monocytes % (Manual) 1 % (1-10) Eosinophils % (Manual) 0 % (0-3) Basophils % (Manual) 0 % (0-2) Band Neutrophils 0 % (0-8) Platelet Estimate Decreased L Platelet Morphology Normal Hypochromasia 1+ Anisocytosis 1+ Macrocytosis 1+ Sodium Level 141 MMOL/L (136-145) Potassium Level 4.7 MMOL/L (3.5-5.1) Chloride Level 104 MMOL/L (98-107) Carbon Dioxide Level 28 MMOL/L (21-32) Anion Gap 9 mmol/L (5-15) Blood Urea Nitrogen 115 mg/dL (7-18) H Creatinine 3.3 MG/DL (0.55-1.30) H Estimat Glomerular Filtration Rate 17.9 mL/min (>60) Glucose Level 343 MG/DL (74-106) #H Calcium Level 7.2 MG/DL (8.5-10.1) L Total Bilirubin 0.6 MG/DL (0.2-1.0) Aspartate Amino Transf (AST/SGOT) 64 U/L (15-37) H Alanine Aminotransferase (ALT/SGPT) 73 U/L (12-78) Alkaline Phosphatase 200 U/L (46-116) H Total Protein 5.0 G/DL (6.4-8.2) L Albumin 1.6 G/DL (3.4-5.0) L Globulin 3.4 g/dL Albumin/Globulin Ratio 0.5 (1.0-2.7) L Test 11/23/20 05:16 POC Whole Blood Glucose Pending Neurologic Exam Objective VITAL SIGNS: Reviewed GENERAL: For general physical examination, please refer to other physicians' examination for details. NEUROLOGIC: Mental status -not responding he does not follow commands. He is currently intubated. Obtunded. Motor examination, no movements. No gag reflux Impression/Recommendations Status: stable Diagnostic Impression ASSESSMENT: 1. Acute metabolic encephalopathy, no change 2. Respiratory failure. 3. COVID-19 infection. 4. Diabetes mellitus. 5. Hypertension. 6. Hyperkalemia. 7. CKD. 8. Metabolic acidosis. Recommendations DISCUSSION AND PLAN: The patient presented with COVID-19 infection and has respiratory failure. His change in mental status was likely due to his multiple medical and electrolyte abnormalities. He has not had any imaging study of his brain. He is now DNR we will hold off on ordering any imaging. We will c ontinue to monitor his neurological status during this hospitalization and provide further recommendations as necessary. As of now he has a poor prognosis and family has decided on DNR code status. Plan of care was discussed Dr. Drew who has seen patient with me. Thank you for allowing us to participate in the care of this patient. Tessie Greco NP Nov 23, 2020 11:37
--- NOTE | 2020-11-23 11:48 | Infectious Diseases Prog Note ---
Assessment/Plan Assessment/Plan A: 1. COVID-19 pneumonia. 2. Positive blood culture likely contamination 3. Respiratory failure with hypoxia 4. Diabetes. 5. Hypertension. 6. Renal failure. 7. Acidosis 8. E.coli pneumonia PLAN: 1. Finished remdesivir course 2. Continue Solu-Medrol 3. Continue Rocephin & Fluconazole Subjective ROS Limited/Unobtainable: Yes Cardiovascular: Reports: other - on Dopamine 20 microgram/kg/min Allergies: Coded Allergies: No Known Allergies (Unverified , 11/06/20) Objective Last 24 Hour Vital Signs Date Time Temp Pulse Resp B/P (MAP) Pulse Ox O2 Delivery O2 Flow Rate FiO2 11/23/20 11:00 78 27 105/31 (55) 81 11/23/20 11:00 98/50 11/23/20 10:00 93/38 11/23/20 10:00 83 27 105/30 (55) 80 11/23/20 09:00 85 28 98/30 (52) 80 11/23/20 09:00 95/38 11/23/20 08:31 94/38 11/23/20 08:00 84 11/23/20 08:00 100 11/23/20 08:00 97.9 87 23 103/34 (57) 11/23/20 08:00 Mechanical Ventilator 11/23/20 07:59 82 23 100 11/23/20 07:45 86 23 107/33 (57) 63 11/23/20 07:30 87 23 93/38 (56) 11/23/20 07:15 97 20 98/41 (60) 11/23/20 07:00 97 19 103/30 (54) 11/23/20 06:25 29 15 59/15 (30) 11/23/20 06:17 58 22 66/35 (45) 11/23/20 06:15 78 19 74/25 (41) 53 11/23/20 06:13 53 22 94/29 (50) 11/23/20 06:00 98 29 95/29 (51) 11/23/20 06:00 94/29 11/23/20 05:30 96 29 82/52 (62) 78 11/23/20 05:00 99/34 11/23/20 05:00 95 28 96/40 (58) 11/23/20 04:30 97 29 98/54 (69) 90 11/23/20 04:00 97 30 109/30 (56) 87 11/23/20 04:00 Mechanical Ventilator 11/23/20 04:00 114/36 11/23/20 04:00 100 11/23/20 04:00 78 11/23/20 03:30 97 29 105/44 (64) 85 11/23/20 03:15 99 29 111/31 (57) 84 11/23/20 03:00 111/31 11/23/20 03:00 101 29 119/38 (65) 83 11/23/20 02:00 99 27 119/32 (61) 83 11/23/20 02:00 117/45 11/23/20 01:30 92 25 100 11/23/20 01:00 100 27 125/34 (64) 85 11/23/20 01:00 127/35 11/23/20 00:04 98 11/23/20 00:00 97.0 98 28 111/32 (58) 88 11/23/20 00:00 Mechanical Ventilator 11/23/20 00:00 115/34 11/23/20 00:00 100 11/22/20 23:45 98 28 111/34 (59) 87 11/22/20 23:30 98 29 103/42 (62) 85 11/22/20 23:15 98 29 103/34 (57) 84 11/22/20 23:00 98 30 101/42 (61) 82 11/22/20 23:00 101/42 11/22/20 22:45 100 30 107/40 (62) 86 11/22/20 22:30 98 30 89/37 (54) 86 11/22/20 22:21 97 28 85/33 (50) 86 11/22/20 22:15 94 30 83/40 (54) 86 11/22/20 22:00 86/23 11/22/20 22:00 98 29 80/35 (50) 86 11/22/20 21:45 100 29 96/36 (56) 60 11/22/20 21:45 96/36 11/22/20 21:30 126/44 11/22/20 21:30 100 27 126/44 (71) 90 11/22/20 21:15 101 27 140/50 (80) 90 11/22/20 21:13 80/36 11/22/20 21:00 101 27 134/47 (76) 90 11/22/20 20:58 102 27 134/32 (66) 90 11/22/20 20:55 105 26 78/41 (53) 90 11/22/20 20:48 104 27 87/51 (63) 90 11/22/20 20:45 102 28 80/36 (51) 90 11/22/20 20:30 99 27 92/50 (64) 90 11/22/20 20:15 97 28 103/39 (60) 90 11/22/20 20:00 100 11/22/20 20:00 Mechanical Ventilator 11/22/20 20:00 97.6 95 25 108/43 (64) 90 11/22/20 19:52 88 27 100 11/22/20 19:45 97 11/22/20 19:00 91 28 116/41 (66) 81 11/22/20 19:00 116/41 11/22/20 18:45 84 29 96/32 (53) 80 11/22/20 18:30 89 25 94/26 (48) 80 11/22/20 18:30 80/32 11/22/20 18:00 86 29 107/32 (57) 94 11/22/20 17:00 86 30 104/33 (56) 93 11/22/20 16:00 98.2 88 30 103/34 (57) 90 11/22/20 16:00 Mechanical Ventilator 11/22/20 16:00 90 11/22/20 16:00 100 11/22/20 15:08 86 28 100 11/22/20 15:00 91 30 104/35 (58) 91 11/22/20 14:00 94 31 109/36 (60) 91 11/22/20 13:00 92 31 107/38 (61) 89 11/22/20 12:00 91 11/22/20 12:00 98.4 90 30 111/38 (62) 88 11/22/20 12:00 Mechanical Ventilator 11/22/20 12:00 100 Height (Feet): 6 Height (Inches): 1.00 Weight (Pounds): 190 HEENT: other - orally intubated Respiratory/Chest: other - on ventilator, [id number]% Cardiovascular: normal rate Abdomen: soft, non tender Extremities: no edema Neurologic/Psychiatric: unresponsiveness Laboratory Tests Test 11/22/20 17:30 11/22/20 21:27 11/23/20 01:21 11/23/20 04:00 Arterial Blood pH 7.103 (7.350-7.450) Arterial Blood Partial Pressure CO2 89.0 mmHg (35.0-45.0) *H Arterial Blood Partial Pressure O2 63.9 mmHg (75.0-100.0) L Arterial Blood HCO3 27.2 mmol/L (22.0-26.0) H Arterial Blood Oxygen Saturation 86.7 % (95-100) *L Arterial Blood Base Excess -3.1 (-2-2) L Jonathan Test Positive POC Whole Blood Glucose Pending Pending White Blood Count 27.5 K/UL (4.8-10.8) *H Red Blood Count 2.76 M/UL (4.70-6.10) L Hemoglobin 8.8 G/DL (14.2-18.0) L Hematocrit 28.1 % (42.0-52.0) L Mean Corpuscular Volume 102 FL (80-99) H Mean Corpuscular Hemoglobin 31.8 PG (27.0-31.0) H Mean Corpuscular Hemoglobin Concent 31.2 G/DL (32.0-36.0) L Red Cell Distribution Width 15.4 % (11.6-14.8) H Platelet Count 79 K/UL (150-450) L Mean Platelet Volume 10.1 FL (6.5-10.1) Neutrophils (%) (Auto) % (45.0-75.0) Lymphocytes (%) (Auto) % (20.0-45.0) Monocytes (%) (Auto) % (1.0-10.0) Eosinophils (%) (Auto) % (0.0-3.0) Basophils (%) (Auto) % (0.0-2.0) Differential Total Cells Counted 100 Neutrophils % (Manual) 97 % (45-75) H Lymphocytes % (Manual) 2 % (20-45) L Monocytes % (Manual) 1 % (1-10) Eosinophils % (Manual) 0 % (0-3) Basophils % (Manual) 0 % (0-2) Band Neutrophils 0 % (0-8) Platelet Estimate Decreased L Platelet Morphology Normal Hypochromasia 1+ Anisocytosis 1+ Macrocytosis 1+ Sodium Level 141 MMOL/L (136-145) Potassium Level 4.7 MMOL/L (3.5-5.1) Chloride Level 104 MMOL/L (98-107) Carbon Dioxide Level 28 MMOL/L (21-32) Anion Gap 9 mmol/L (5-15) Blood Urea Nitrogen 115 mg/dL (7-18) H Creatinine 3.3 MG/DL (0.55-1.30) H Estimat Glomerular Filtration Rate 17.9 mL/min (>60) Glucose Level 343 MG/DL (74-106) #H Calcium Level 7.2 MG/DL (8.5-10.1) L Total Bilirubin 0.6 MG/DL (0.2-1.0) Aspartate Amino Transf (AST/SGOT) 64 U/L (15-37) H Alanine Aminotransferase (ALT/SGPT) 73 U/L (12-78) Alkaline Phosphatase 200 U/L (46-116) H Total Protein 5.0 G/DL (6.4-8.2) L Albumin 1.6 G/DL (3.4-5.0) L Globulin 3.4 g/dL Albumin/Globulin Ratio 0.5 (1.0-2.7) L Test 11/23/20 05:16 POC Whole Blood Glucose Pending Current Medications Medications (Trade) Dose Ordered Sig/Violet Route PRN Reason Start Time Stop Time Status Last Admin Dose Admin Acetaminophen (Tylenol) 650 mg Q4H PRN GT Temp >100.5 11/12/20 11:00 12/12/20 10:44 11/18/20 14:55 Ceftriaxone Sodium 1 gm/ Dextrose 55 ml @ 110 mls/hr Q24H IVPB 11/21/20 14:00 11/28/20 13:59 11/22/20 13:46 Chlorhexidine Gluconate (Patt-Hex 2%) 1 applic DAILY@2000 TOPIC 11/17/20 20:00 02/15/21 19:59 11/22/20 20:00 Dextrose 1,000 ml @ 75 mls/hr [id number] IV 11/20/20 22:30 12/20/20 22:29 11/23/20 04:00 Dextrose (Dextrose 50%) 25 ml Q30M PRN IV Hypoglycemia 11/06/20 20:00 02/04/21 19:59 Dextrose (Dextrose 50%) 50 ml Q30M PRN IV Hypoglycemia 11/06/20 20:00 02/04/21 19:59 Docusate Sodium (Colace) 100 mg EVERY 12 HOURS GT 11/17/20 21:00 12/14/20 17:59 11/20/20 19:46 Dopamine HCl/ Dextrose 250 ml @ 0 mls/hr Q24H IV 11/22/20 21:00 11/25/20 21:00 11/23/20 08:31 Fluconazole (Diflucan) 100 mg DAILY GT 11/21/20 13:30 11/28/20 13:29 11/23/20 08:29 Flumazenil (Romazicon) 0.2 mg NEEDED PRN IV Sedation reversal 11/06/20 20:00 Insulin Aspart (NovoLOG) EVERY 6 HOURS SUBQ 11/08/20 12:00 02/05/21 16:29 11/23/20 05:20 Insulin Detemir (Levemir) 20 units EVERY 12 HOURS SUBQ 11/19/20 21:00 02/05/21 20:59 11/23/20 08:34 Methylprednisolone Sodium Succinate (Solu-MEDROL) 40 mg EVERY 12 HOURS IVP 11/18/20 12:30 02/16/21 12:29 11/23/20 08:28 Metoclopramide HCl (Reglan) 5 mg Q6HR IVP 11/14/20 12:26 12/14/20 12:25 11/23/20 05:19 Naloxone HCl (Narcan) 0.4 mg NEEDED PRN IVP RR less than 6/min 11/06/20 20:00 02/04/21 19:59 Ondansetron HCl (Zofran) 4 mg Q6H PRN IVP Nausea & Vomiting 11/06/20 20:00 12/06/20 19:59 Pantoprazole (Protonix) 40 mg DAILY IVP 11/08/20 09:00 12/08/20 08:59 11/23/20 08:28 Polyethylene Glycol (Miralax) 17 gm BEDTIME GT 11/14/20 21:00 1/23/21 20:59 11/20/20 19:46 Karson Cabrera MD Nov 23, 2020 11:48
--- NOTE | 2020-11-23 13:34 | NUR ---
CASE MANAGEMENT: REVIEW 11/23/2020 SI;SEPSIS. COVID PNA. VS: T 98.3 HR 96 RR 26 B/P 101/30 SATS 79% ON MECH VENT FIO2 100 LABS: WBC 27.5 BUN 115 CR 3.3 GLU 343 CA 7.2 AST 64 ALP 200 IS:DEXTROSE IV @ 75 ML/HR INSULIN ASPART SUBQ AC/HS SOLU MEDROL IV Q12H LEVEMIR SUBQ Q12H DIFLUCAN GT QD DOPAMINE IV PER PARAMETERS CEFTRIAXONE IV Q24H ICU
[2020-11-23] MEDS: cefTRIAXone 1 GM in D5W 55 ML IVPB SCH (15:31)
--- NOTE | 2020-11-23 15:49 | NUR ---
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 Stat repeat chest x-ray ordered now.
--- NOTE | 2020-11-23 16:11 | Surgery Progress Note ---
Surgery Progress Note Subjective Procedure Performed Right femoral temp HD catheter insertion Additional Comments ill appearing labs noted neuro exam unchanged on support Objective Last 24 Hour Vital Signs Date Time Temp Pulse Resp B/P (MAP) Pulse Ox O2 Delivery O2 Flow Rate FiO2 11/23/20 15:30 92 30 95/29 (51) 75 11/23/20 15:00 91 28 97/27 (50) 75 11/23/20 14:30 90 25 97/27 (50) 82 11/23/20 14:00 87 20 92/28 (49) 81 11/23/20 13:50 59/23 11/23/20 13:30 92 25 54/20 (31) 71 11/23/20 13:00 96 23 73/34 (47) 79 11/23/20 12:15 83 26 99/31 (53) 79 11/23/20 12:00 Mechanical Ventilator 11/23/20 12:00 96 11/23/20 12:00 100 11/23/20 12:00 98.3 81 26 101/30 (53) 79 11/23/20 11:00 78 27 105/31 (55) 81 11/23/20 11:00 98/50 11/23/20 10:00 93/38 11/23/20 10:00 83 27 105/30 (55) 80 11/23/20 09:00 85 28 98/30 (52) 80 11/23/20 09:00 95/38 11/23/20 08:31 94/38 11/23/20 08:00 84 11/23/20 08:00 100 11/23/20 08:00 97.9 87 23 103/34 (57) 11/23/20 08:00 Mechanical Ventilator 11/23/20 07:59 82 23 100 11/23/20 07:45 86 23 107/33 (57) 63 11/23/20 07:30 87 23 93/38 (56) 11/23/20 07:15 97 20 98/41 (60) 11/23/20 07:00 97 19 103/30 (54) 11/23/20 06:25 29 15 59/15 (30) 11/23/20 06:17 58 22 66/35 (45) 11/23/20 06:15 78 19 74/25 (41) 53 11/23/20 06:13 53 22 94/29 (50) 11/23/20 06:00 98 29 95/29 (51) 11/23/20 06:00 94/29 11/23/20 05:30 96 29 82/52 (62) 78 11/23/20 05:00 99/34 11/23/20 05:00 95 28 96/40 (58) 11/23/20 04:30 97 29 98/54 (69) 90 11/23/20 04:00 97 30 109/30 (56) 87 11/23/20 04:00 Mechanical Ventilator 11/23/20 04:00 114/36 11/23/20 04:00 100 11/23/20 04:00 78 11/23/20 03:30 97 29 105/44 (64) 85 11/23/20 03:15 99 29 111/31 (57) 84 11/23/20 03:00 111/31 11/23/20 03:00 101 29 119/38 (65) 83 11/23/20 02:00 99 27 119/32 (61) 83 11/23/20 02:00 117/45 11/23/20 01:30 92 25 100 11/23/20 01:00 100 27 125/34 (64) 85 11/23/20 01:00 127/35 11/23/20 00:04 98 11/23/20 00:00 97.0 98 28 111/32 (58) 88 11/23/20 00:00 Mechanical Ventilator 11/23/20 00:00 115/34 11/23/20 00:00 100 11/22/20 23:45 98 28 111/34 (59) 87 11/22/20 23:30 98 29 103/42 (62) 85 11/22/20 23:15 98 29 103/34 (57) 84 11/22/20 23:00 98 30 101/42 (61) 82 11/22/20 23:00 101/42 11/22/20 22:45 100 30 107/40 (62) 86 11/22/20 22:30 98 30 89/37 (54) 86 11/22/20 22:21 97 28 85/33 (50) 86 11/22/20 22:15 94 30 83/40 (54) 86 11/22/20 22:00 86/23 11/22/20 22:00 98 29 80/35 (50) 86 11/22/20 21:45 100 29 96/36 (56) 60 11/22/20 21:45 96/36 11/22/20 21:30 126/44 11/22/20 21:30 100 27 126/44 (71) 90 11/22/20 21:15 101 27 140/50 (80) 90 11/22/20 21:13 80/36 11/22/20 21:00 101 27 134/47 (76) 90 11/22/20 20:58 102 27 134/32 (66) 90 11/22/20 20:55 105 26 78/41 (53) 90 11/22/20 20:48 104 27 87/51 (63) 90 11/22/20 20:45 102 28 80/36 (51) 90 11/22/20 20:30 99 27 92/50 (64) 90 11/22/20 20:15 97 28 103/39 (60) 90 11/22/20 20:00 100 11/22/20 20:00 Mechanical Ventilator 11/22/20 20:00 97.6 95 25 108/43 (64) 90 11/22/20 19:52 88 27 100 11/22/20 19:45 97 11/22/20 19:00 91 28 116/41 (66) 81 11/22/20 19:00 116/41 11/22/20 18:45 84 29 96/32 (53) 80 11/22/20 18:30 89 25 94/26 (48) 80 11/22/20 18:30 80/32 11/22/20 18:00 86 29 107/32 (57) 94 11/22/20 17:00 86 30 104/33 (56) 93 I&O Intake and Output 11/22/20 11/23/20 19:00 07:00 Intake Total 2131.232 ml 1075.02574 ml Output Total 60 ml 500 ml Balance 2071.232 ml 575.78464 ml Free Water 1200 ml IV Total 451.232 ml 675.66233 ml Tube Feeding 480 ml 400 ml Output Urine Total 10 ml 0 ml Stool Total 50 ml Hemodialysis UF 500 ml Dressing: saturated Cardiovascular: RSR Respiratory: decreased breath sounds Abdomen: non-tender, present bowel sounds Extremities: no tenderness, no cyanosis Laboratory Tests Test 11/22/20 17:30 11/22/20 21:27 11/23/20 01:21 11/23/20 04:00 Arterial Blood pH 7.103 (7.350-7.450) Arterial Blood Partial Pressure CO2 89.0 mmHg (35.0-45.0) *H Arterial Blood Partial Pressure O2 63.9 mmHg (75.0-100.0) L Arterial Blood HCO3 27.2 mmol/L (22.0-26.0) H Arterial Blood Oxygen Saturation 86.7 % (95-100) *L Arterial Blood Base Excess -3.1 (-2-2) L Jonathan Test Positive POC Whole Blood Glucose Pending Pending White Blood Count 27.5 K/UL (4.8-10.8) *H Red Blood Count 2.76 M/UL (4.70-6.10) L Hemoglobin 8.8 G/DL (14.2-18.0) L Hematocrit 28.1 % (42.0-52.0) L Mean Corpuscular Volume 102 FL (80-99) H Mean Corpuscular Hemoglobin 31.8 PG (27.0-31.0) H Mean Corpuscular Hemoglobin Concent 31.2 G/DL (32.0-36.0) L Red Cell Distribution Width 15.4 % (11.6-14.8) H Platelet Count 79 K/UL (150-450) L Mean Platelet Volume 10.1 FL (6.5-10.1) Neutrophils (%) (Auto) % (45.0-75.0) Lymphocytes (%) (Auto) % (20.0-45.0) Monocytes (%) (Auto) % (1.0-10.0) Eosinophils (%) (Auto) % (0.0-3.0) Basophils (%) (Auto) % (0.0-2.0) Differential Total Cells Counted 100 Neutrophils % (Manual) 97 % (45-75) H Lymphocytes % (Manual) 2 % (20-45) L Monocytes % (Manual) 1 % (1-10) Eosinophils % (Manual) 0 % (0-3) Basophils % (Manual) 0 % (0-2) Band Neutrophils 0 % (0-8) Platelet Estimate Decreased L Platelet Morphology Normal Hypochromasia 1+ Anisocytosis 1+ Macrocytosis 1+ Sodium Level 141 MMOL/L (136-145) Potassium Level 4.7 MMOL/L (3.5-5.1) Chloride Level 104 MMOL/L (98-107) Carbon Dioxide Level 28 MMOL/L (21-32) Anion Gap 9 mmol/L (5-15) Blood Urea Nitrogen 115 mg/dL (7-18) H Creatinine 3.3 MG/DL (0.55-1.30) H Estimat Glomerular Filtration Rate 17.9 mL/min (>60) Glucose Level 343 MG/DL (74-106) #H Calcium Level 7.2 MG/DL (8.5-10.1) L Total Bilirubin 0.6 MG/DL (0.2-1.0) Aspartate Amino Transf (AST/SGOT) 64 U/L (15-37) H Alanine Aminotransferase (ALT/SGPT) 73 U/L (12-78) Alkaline Phosphatase 200 U/L (46-116) H Total Protein 5.0 G/DL (6.4-8.2) L Albumin 1.6 G/DL (3.4-5.0) L Globulin 3.4 g/dL Albumin/Globulin Ratio 0.5 (1.0-2.7) L Test 11/23/20 05:16 11/23/20 08:26 11/23/20 12:10 POC Whole Blood Glucose Pending 338 MG/DL (74-106) H Pending Plan Problems: (1) ARDS (adult respiratory distress syndrome) Assessment & Plan: 84-year-old male who pressor insufficiency ARDS Covid on vent ET tube in place chest x-ray reviewed central line in place on sedation. Continue daily weaning trials. NG tube okay for diet tube feeds continue. Microbiology reviewed labs reviewed. Trend labs. IV fluids. Will follow with recommendations thank you for let me participate patient's care cxr stable on abx covid + cont abx cont f wean as tolerated DAILY ESTIMATED NEEDS: Needs based on Critcal care 82.4kg abw 22-28 kcals/kg 5360-0779 total kcals 1.2-2 g protein/kg 99-165 g total protein 20-25/ or per MD mL/kg 2908-3522 total fluid mLs NUTRITION DIAGNOSIS: Swallowing difficulty r/t respiratory status as evidenced by 84 y/o M adm w/ covid++, now orally intubated, NPO. ENTERAL NUTRITION RECOMMENDATIONS: VITAL 1.2 GOAL OF 65ml/hr x24 hrs to provide 1560ml, 1872 kcal, 117g pro, 1265ml free H2O - When hemodynamically stable, rec to start non oral feeds to meet est kcal and pro needs. - Start Vital 1.2 @35ml/hr for 6 hrs, advance as tolerated 10ml/hr q4-6 hrs to goal. - Flush per HOB over 30 degrees ADDITIONAL RECOMMENDATIONS: 1) Maintain calibrated bed scale wts 2) Followed by end, monitor for hypoglycemia while NPO 3) Feed when hemodynamically stable, TF recs as above for critical care, carb control, high pro content to meet est needs 4) Re-evaluate TF w/ change in propofol rate-> current rate w/ TF's do NOT exceed est needs. (2) Hypoxemia (3) Renal failure (4) Elevated troponin (5) COVID-19 Assessment & Plan: ++ on abx tx per Tommie Teague Nov 23, 2020 16:11
--- NOTE | 2020-11-23 16:34 | Diagnostic Imaging Report ---
EXAM: XR Chest, 1 View CLINICAL HISTORY: MALPOSITION OF TUBE TECHNIQUE: Frontal view of the chest. COMPARISON: Chest x-ray dated 11/23/20 at 8:12 AM. FINDINGS: Lungs: No significant change in extensive bilateral pulmonary opacities and reticular interstitial markings. Pleural space: Unremarkable. The costophrenic angles are sharp. No visible pneumothorax. Heart: Unremarkable. No cardiomegaly. Mediastinum: Unremarkable. Bones/joints: Unremarkable. Tubes, lines and devices: Endotracheal tube tip 9 cm above the brittany. Telemetry leads overlie the thorax. IMPRESSION: 1. Endotracheal tube tip 9 cm above the brittany. Recommend advancing 5 cm. 2. No significant change in extensive bilateral pulmonary opacities and reticular interstitial markings.
--- NOTE | 2020-11-23 19:38 | NUR ---
NURSE NOTES: Received patient from LYNDA Phipps. Will continue plan of care.
[2020-11-23] MEDS: Dyna-Hex 2% Top Sol 2oz TOPIC SCH (20:00)
--- NOTE | 2020-11-23 20:00 | NUR ---
NURSE NOTES: Patient is not responsive, does not opens eyes and does not move. Intubated; ETT 7.5 @ 26cm to the right lipline to vent with settings of AC:18, TV:450, PEEP:10, FiO2:100%. OGT in place but NPO b/c patient unstable post re-intubation but will start Nepro with a goal of 40ml/hr. Douglas catheter and rectal tube in place and draining. Right upper arm PICC running D5W @ 75ml/hr and Dopamine @ 20mcgs/min., right femoral ester w/ pigtail for HD. Bed low, locked and alarm is on.
[2020-11-23] MEDS: Miralax 17gm pkt GT SCH (21:00)
--- NOTE | 2020-11-23 21:07 | General Progress Note ---
Subjective Allergies: Coded Allergies: No Known Allergies (Unverified , 11/06/20) Subjective Chart review since last seen. Patient continues to be on ventilator. Max vent settings. Unchanged. WBC increasing. + diarrhea. C diff sent. Continues to not tolerate HD. Off dopamine intermittently. DNR. ETT with cuff leak last night. Re-intubated. CXR reviewed. needs advancement of ETT. RT aware. Good volumes on ventilator ROS: unable to obtain due to ALOC Objective Last 24 Hour Vital Signs Date Time Temp Pulse Resp B/P (MAP) Pulse Ox O2 Delivery O2 Flow Rate FiO2 11/23/20 20:26 78/28 11/23/20 20:00 100 11/23/20 20:00 Mechanical Ventilator 11/23/20 19:30 84 31 94/29 (50) 65 11/23/20 19:26 85 11/23/20 19:16 88 31 100 11/23/20 19:15 88 25 99/30 (53) 79 11/23/20 19:00 88 26 99/30 (53) 80 11/23/20 19:00 99/30 11/23/20 18:45 88 27 98/28 (51) 75 11/23/20 18:30 87 21 86/28 (47) 81 11/23/20 18:15 87 26 102/33 (56) 70 11/23/20 18:00 102/33 11/23/20 18:00 88 27 95/35 (55) 66 11/23/20 17:45 84 20 78/28 (45) 67 11/23/20 17:30 89 23 79/32 (48) 61 11/23/20 17:15 90 23 86/36 (53) 70 11/23/20 17:00 86/36 11/23/20 17:00 91 22 106/32 (56) 72 11/23/20 16:45 91 20 103/33 (56) 71 11/23/20 16:30 91 22 107/33 (57) 73 11/23/20 16:15 90 18 108/35 (59) 75 11/23/20 16:00 91 11/23/20 16:00 91 16 103/38 (59) 11/23/20 16:00 100 11/23/20 16:00 98.6 1/2/21 16:00 108/35 11/23/20 16:00 Mechanical Ventilator 11/23/20 15:30 92 30 95/29 (51) 75 11/23/20 15:00 95/29 11/23/20 15:00 91 28 97/27 (50) 75 11/23/20 14:30 90 25 97/27 (50) 82 11/23/20 14:00 87 20 92/28 (49) 81 11/23/20 14:00 92/28 11/23/20 13:50 59/23 11/23/20 13:30 92 25 54/20 (31) 71 11/23/20 13:29 99 26 100 11/23/20 13:00 96 23 73/34 (47) 79 11/23/20 13:00 73/34 11/23/20 12:15 83 26 99/31 (53) 79 11/23/20 12:00 Mechanical Ventilator 11/23/20 12:00 96 11/23/20 12:00 100 11/23/20 12:00 99/31 11/23/20 12:00 98.3 81 26 101/30 (53) 79 11/23/20 11:00 78 27 105/31 (55) 81 11/23/20 11:00 98/50 11/23/20 10:00 93/38 11/23/20 10:00 83 27 105/30 (55) 80 11/23/20 09:00 85 28 98/30 (52) 80 11/23/20 09:00 95/38 11/23/20 08:31 94/38 11/23/20 08:00 84 11/23/20 08:00 100 11/23/20 08:00 97.9 87 23 103/34 (57) 11/23/20 08:00 Mechanical Ventilator 11/23/20 07:59 82 23 100 11/23/20 07:45 86 23 107/33 (57) 63 11/23/20 07:30 87 23 93/38 (56) 11/23/20 07:15 97 20 98/41 (60) 11/23/20 07:00 97 19 103/30 (54) 11/23/20 06:25 29 15 59/15 (30) 11/23/20 06:17 58 22 66/35 (45) 11/23/20 06:15 78 19 74/25 (41) 53 11/23/20 06:13 53 22 94/29 (50) 11/23/20 06:00 98 29 95/29 (51) 11/23/20 06:00 94/29 11/23/20 05:30 96 29 82/52 (62) 78 11/23/20 05:00 99/34 11/23/20 05:00 95 28 96/40 (58) 11/23/20 04:30 97 29 98/54 (69) 90 11/23/20 04:00 97 30 109/30 (56) 87 11/23/20 04:00 Mechanical Ventilator 11/23/20 04:00 114/36 11/23/20 04:00 100 11/23/20 04:00 78 11/23/20 03:30 97 29 105/44 (64) 85 11/23/20 03:15 99 29 111/31 (57) 84 11/23/20 03:00 111/31 11/23/20 03:00 101 29 119/38 (65) 83 11/23/20 02:00 99 27 119/32 (61) 83 11/23/20 02:00 117/45 11/23/20 01:30 92 25 100 11/23/20 01:00 100 27 125/34 (64) 85 11/23/20 01:00 127/35 11/23/20 00:04 98 11/23/20 00:00 97.0 98 28 111/32 (58) 88 11/23/20 00:00 Mechanical Ventilator 11/23/20 00:00 115/34 11/23/20 00:00 100 11/22/20 23:45 98 28 111/34 (59) 87 11/22/20 23:30 98 29 103/42 (62) 85 11/22/20 23:15 98 29 103/34 (57) 84 11/22/20 23:00 98 30 101/42 (61) 82 11/22/20 23:00 101/42 11/22/20 22:45 100 30 107/40 (62) 86 11/22/20 22:30 98 30 89/37 (54) 86 11/22/20 22:21 97 28 85/33 (50) 86 11/22/20 22:15 94 30 83/40 (54) 86 11/22/20 22:00 86/23 11/22/20 22:00 98 29 80/35 (50) 86 11/22/20 21:45 100 29 96/36 (56) 60 11/22/20 21:45 96/36 11/22/20 21:30 126/44 11/22/20 21:30 100 27 126/44 (71) 90 11/22/20 21:15 101 27 140/50 (80) 90 11/22/20 21:13 80/36 Intake and Output 11/22/20 11/23/20 19:00 07:00 Intake Total 2131.232 ml 1075.91381 ml Output Total 60 ml 500 ml Balance 2071.232 ml 575.06130 ml Free Water 1200 ml IV Total 451.232 ml 675.22844 ml Tube Feeding 480 ml 400 ml Output Urine Total 10 ml 0 ml Stool Total 50 ml Hemodialysis UF 500 ml Laboratory Tests 11/22/20 21:27: POC Whole Blood Glucose [Pending] 11/23/20 01:21: POC Whole Blood Glucose [Pending] 11/23/20 04:00: White Blood Count 27.5*H, Red Blood Count 2.76L, Hemoglobin 8.8L, Hematocrit 28.1L, Mean Corpuscular Volume 102H, Mean Corpuscular Hemoglobin 31.8H, Mean Corpuscular Hemoglobin Concent 31.2L, Red Cell Distribution Width 15.4H, Platelet Count 79L, Mean Platelet Volume 10.1, Neutrophils (%) (Auto) , Lymphocytes (%) (Auto) , Monocytes (%) (Auto) , Eosinophils (%) (Auto) , Basophils (%) (Auto) , Differential Total Cells Counted 100, Neutrophils % (Manual) 97H, Lymphocytes % (Manual) 2L, Monocytes % (Manual) 1, Eosinophils % (Manual) 0, Basophils % (Manual) 0, Band Neutrophils 0, Platelet Estimate DecreasedL, Platelet Morphology Normal, Hypochromasia 1+, Anisocytosis 1+, Macrocytosis 1+, Sodium Level 141, Potassium Level 4.7, Chloride Level 104, Carbon Dioxide Level 28, Anion Gap 9, Blood Urea Nitrogen 115H, Creatinine 3.3H, Estimat Glomerular Filtration Rate 17.9, Glucose Level 343#H, Calcium Level 7.2L, Total Bilirubin 0.6, Aspartate Amino Transf (AST/SGOT) 64H, Alanine Aminotransferase (ALT/SGPT) 73, Alkaline Phosphatase 200H, Total Protein 5.0L, Albumin 1.6L, Globulin 3.4, Albumin/Globulin Ratio 0.5L 11/23/20 05:16: POC Whole Blood Glucose [Pending] 11/23/20 08:26: POC Whole Blood Glucose 338H 11/23/20 12:10: POC Whole Blood Glucose [Pending] 11/23/20 18:30: POC Whole Blood Glucose 243H Height (Feet): 6 Height (Inches): 1.00 Weight (Pounds): 190 Objective Exam limited due to COVID status and to conserve PPE. Per discussion with RN. General: Male A&o x 0 On intubated, sedated, moving extremities spontaneously off sedation HEENT: Normocephalic cephalic atraumatic, pupils equal round reactive to light and accommodation, nares patent and no symmetrical, no tonsillar exudates, mucous membranes moist CV: Regular rate regular rhythm, no murmurs, rubs, or gallops Pulm: Lungs coarse breath sounds bilaterally. No wheezes, rhonchi, or rales GI: Soft, nontender, nondistended, bowel sounds present Neuro: Moving all extremities, PERRLA, no focal signs Ext: No lower extremity edema bilaterally Skin: no rashes lesions or ulcers Msk: Joints symmetrical in upper extremity and lower extremity bilaterally, no joint swelling. Lymph: No lymphadenopathy in upper extremity and lower extremity Assessment/Plan Status: stable Assessment/Plan: 84 yo M w DM2, HTN, ? CKD admitted for Covid19 PNA with SAMEER: #Septic shock #Acute hypoxemia Resp failure 2/ covid PNA - + , Intubated # Covid PNA - #Pneumomediastinum #leukocytosis- worsening. Steroid induced? Appreciate ID/Pulm - S/P CVC placement - AB now are Zosyn and Micafungin per ID (s/p Vanco) - Continue Solumedrol IV - CXR with improvement with pneumomediastinum - Pressor support w/ Dopamine and Levophed, Propfol for Sedation, monitor TG - NG tube 11/07 for meds. start tube feeding - IV fluids per nephro - DVT/GI ppx - s/p decadron 6mg iv daily - s/p Remdesivir per ID (11/09 started) - s/p azithromycin (11/08 started ) - s/p Vancomycin (11/09 started) #diarrhea, rule out C Diff - C diff ordered. D/w primary team #Acute Renal Failure now Requiring HD -Appreciate Nephro -S/P Ray, Initiate HD 11/20 -Hoping this will help the pulmonary edema/fluid shifting -Douglas Cath; Strict I/O -lasix drip per Pulm/Nephro #S. hominis bacteremia, Contaminant? Defer to ID Appreciate ID AB as above #Anemia - GI consult Dr. Saavedra - PPI, Monitor for GIB #thrombocytopenia - consider Heme consult - d/w primary team - monitor for signs of bleeding #DM2 uncontrolled - Adjust long acting daily to maintain blood sugar 180 or less - SSI, Accuchecks Q6 w/ tube feeds - Requirements will be increased while on steroids DVTPPX: per primary GI PPX: protonix Fluids: per nephro Diet: NPO, tube feedings PT/OT: deferred Code status:DNAR Dispo: SNF eventually. Guarded prognosis. Family aware Reason for Continued Hospitalization: Hypoxia Time of my involvement, the patient's condition was critical with high potential for and/or physiologic deterioration secondary to septic shock, acute hypoxic respiratory failure as delineated in the note above. On the above date of service, I spent a total of 36 minutes in the ICU evaluating, managing, and providing critical care services to this patient, including time spent documenting these activities, counseling patient/family, and coordinating care. Critical care services performed include: -Telemetry review -Hemodynamic measurement interpretation -Laboratory data review and interpretation -Vent setting reviewed, management -Discussion of care plans with patient, family, and/or surrogate decision makers -Discussion of patient's care with primary medical team, surgical team, and/or consulting service -Decision to obtain further radiologic evaluation, after consideration of the risk/benefit ratio -Review of most recent microbiology results assessment and modification of antimicrobial coverage -Discussion of patient's CODE STATUS and further advancement towards the ultimate goals of care. Plan outlined above discussed with patient/family, SENIOR INVESTMENT ANALYST, ICU team, and involved physician/consultants. Time of note not necessarily time patient was seen Bakari Lucio D.O. Nov 23, 2020 21:07
--- NOTE | 2020-11-23 22:00 | NUR ---
NURSE NOTES: Benjie Hicks called for updates; updates given. Dopamine continues to run at 20mcgs, current BP:94/27, HR:87.
[2020-11-24] VITALS (37 sets, daily range): BP systolic 38–138; BP diastolic 12–58
--- NOTE | 2020-11-24 | NUR ---
NURSE NOTES: OGT feeding of Nepro restarted @ 20ml/hr and will increase to goal of 40ml/hr as tolerated.
[2020-11-24] MEDS: Metoclopramide 10mg/2ml Inj IVP SCH ×4 (00:17→17:29)
[2020-11-24] MEDS: NovoLOG Insulin Flexpen SUBQ SCH ×4 (00:18→17:29)
[2020-11-24] MEDS: DOPamine 400mg/250ml 250 ML IV SCH ×4 (01:57→14:26)
--- NOTE | 2020-11-24 02:00 | NUR ---
NURSE NOTES: Bed bath given, linens changed, turned and repositioned.
--- NOTE | 2020-11-24 04:00 | NUR ---
NURSE NOTES: No changes in condition. Patient remains comatose. Dopamine continues at 20mcgs. BP:83/38, HR:65
--- NOTE | 2020-11-24 06:00 | NUR ---
NURSE NOTES: Stool collected for C-Diff; stool softner has not been given in 3 days. OGT feeding of Nepro at goal of 40ml/hr and tolerating.
[2020-11-24 07:02] LABS: HEMATOCRIT 28.5 % (42.0-52.0); HEMOGLOBIN 8.5 G/DL (14.2-18.0); MEAN CORPUSCULAR VOLUME 104 FL (80-99); PLATELET COUNT 74 K/UL (150-450); RED BLOOD COUNT 2.74 M/UL (4.70-6.10); RED CELL DISTRIBUTION WIDTH 15.6 % (11.6-14.8)
[2020-11-24 07:05] LABS: WHITE BLOOD COUNT 25.2 K/UL (4.8-10.8)
--- NOTE | 2020-11-24 07:31 | NUR ---
NURSE HAND-OFF REPORT: Latest Vital Signs: Temperature 98.6 , Pulse 66 , B/P 81 /43 , Respiratory Rate 18 , O2 SAT 87 , Mechanical Ventilator, O2 Flow Rate . Vital Sign Comment: On dopamine 20mcgs EKG Rhythm: Sinus Rhythm Rhythm change?: N Notified?: Marty Muñoz MD Response: No New Orders Received Latest Blackwell Fall Score: 50 Fall Risk: High Risk Safety Measures: Call light Within Reach, Bed Alarm Zone 1, Side Rails Side Rails x3, Bed position Low and Locked. Fall Precautions: Yellow Socks Yellow Gown Door Sign Patient Fall Education Report given to LYNDA Jennings.
--- NOTE | 2020-11-24 07:32 | NUR ---
NURSE NOTES: Report received from LYNDA Belle. Patient is comatose, Unable to follow commands. Orally intubated. ETT 7.5/26cm at lip line. AC 18, TV 450, FiO2 100%, PEEP 10. O2 sat 80%. OGT in place receiving Nepro at 40cc/hr. Pt has a montilla catheter, making minimal urine. Rectal tube in place draining dark brown loose BM to gravity. Left femoral Ray catheter w/ pigtail for dialysis access. Right UA PICC in place, infusing D5W @ 75mL/hr and Dopamine @ 20mcg. Bed locked and in lowest position. Side rails up x3. Will resume plan of care.
[2020-11-24 07:53] LABS: ALBUMIN 1.4 G/DL (3.4-5.0); ALBUMIN/GLOBULIN RATIO 0.4 (1.0-2.7); BILIRUBIN,TOTAL 0.8 MG/DL (0.2-1.0); CALCIUM 6.6 MG/DL (8.5-10.1); CREATININE 4.3 MG/DL (0.55-1.30); PHOSPHORUS 14.2 MG/DL (2.5-4.9)
[2020-11-24 07:55] LABS: POTASSIUM 7.1 MMOL/L (3.5-5.1)
[2020-11-24] MEDS: Solu-MEDROL 40mg Inj IVP SCH (08:22)
[2020-11-24] MEDS: Fluconazole 100mg tab GT SCH (08:22)
[2020-11-24] MEDS: Docusate 100mg/10ml Liq GT SCH (08:22)
[2020-11-24] MEDS: Pantoprazole Inj IVP SCH (08:22)
--- NOTE | 2020-11-24 08:30 | NUR ---
NURSE NOTES: Dr Hong informed of pt's potassium level of 7.1
[2020-11-24] MEDS ORDERED: Insulin Human Regular 100units/ml 3ml IV SCH (09:00)
[2020-11-24] MEDS ORDERED: Sodium Polystyrene Sulfonate 15gm Powder ORAL SCH (09:00)
[2020-11-24] MEDS ORDERED: Sodium Bicarbonate 50ml Carp IV SCH (09:00)
[2020-11-24] MEDS: Norepinephrine 4mg/NS Premix 250 ML IV SCH ×3 (09:32→14:27)
[2020-11-24] MEDS: Renvela 2400 mg pkt NG SCH ×3 (09:34→17:29)
[2020-11-24] MEDS: Levemir Flexpen SUBQ SCH (09:35)
--- NOTE | 2020-11-24 09:35 | NUR ---
NURSE NOTES: All orders carried out at this time. Pt started on Levophed d/t B/P 55/14, despite being on max dose of Dopamine.
--- NOTE | 2020-11-24 11:30 | NUR ---
NURSE NOTES: Dr. Barone on the unit. Updated him on pt's current condition. Pt hemodynamically unstable at this time.
--- NOTE | 2020-11-24 11:53 | Surgery Progress Note ---
Surgery Progress Note Subjective Procedure Performed Right femoral temp HD catheter insertion Additional Comments on vent ill appearing labs noted prognosis guarded imaging noted Objective Last 24 Hour Vital Signs Date Time Temp Pulse Resp B/P (MAP) Pulse Ox O2 Delivery O2 Flow Rate FiO2 11/24/20 11:00 102 10 68/35 (46) 87 11/24/20 10:32 78/58 11/24/20 10:30 104 12 78/58 (65) 87 11/24/20 10:15 102 18 82/47 (59) 87 11/24/20 10:00 101 15 90/54 (66) 87 11/24/20 09:45 108 31 74/46 (55) 87 11/24/20 09:32 55/14 11/24/20 09:30 102 25 138/33 (68) 87 11/24/20 09:24 97 32 121/29 (59) 87 11/24/20 09:15 53 17 54/30 (38) 87 11/24/20 09:00 53 17 55/14 (28) 87 11/24/20 08:41 47 18 79/46 (57) 87 11/24/20 08:30 68 11 73/31 (45) 87 11/24/20 08:00 98.1 67 12 83/33 (50) 87 11/24/20 08:00 Mechanical Ventilator 11/24/20 08:00 100 11/24/20 08:00 92 11/24/20 07:30 67 15 94/26 (48) 87 11/24/20 07:00 66 18 81/43 (56) 87 11/24/20 07:00 81/43 11/24/20 06:36 98/22 11/24/20 06:00 65 21 98/22 (47) 95 11/24/20 05:00 92/33 11/24/20 05:00 63 17 92/33 (52) 91 11/24/20 04:31 68 11/24/20 04:00 98.6 78 19 79/46 (57) 88 11/24/20 04:00 100 11/24/20 04:00 74/20 11/24/20 04:00 Mechanical Ventilator 11/24/20 03:00 82 19 91/28 (49) 88 11/24/20 03:00 89/35 11/24/20 02:00 76 20 85/23 (43) 84 11/24/20 02:00 88/30 11/24/20 01:57 99/27 11/24/20 01:26 85 28 100 11/24/20 01:00 97/33 11/24/20 01:00 85 21 101/26 (51) 77 11/24/20 00:00 99.5 83 23 98/25 (49) 72 11/24/20 00:00 100 11/24/20 00:00 98/27 11/24/20 00:00 Mechanical Ventilator 11/23/20 23:37 83 11/23/20 23:00 87 17 99/28 (51) 83 11/23/20 23:00 113/28 11/23/20 22:00 94/27 11/23/20 22:00 88 20 94/27 (49) 79 11/23/20 21:00 86 25 96/27 (50) 72 11/23/20 20:26 78/28 11/23/20 20:00 99.0 85 29 99/30 (53) 66 11/23/20 20:00 100 11/23/20 20:00 Mechanical Ventilator 11/23/20 19:30 84 31 94/29 (50) 65 11/23/20 19:26 85 11/23/20 19:16 88 31 100 11/23/20 19:15 88 25 99/30 (53) 79 11/23/20 19:00 88 26 99/30 (53) 80 11/23/20 19:00 99/30 11/23/20 18:45 88 27 98/28 (51) 75 11/23/20 18:30 87 21 86/28 (47) 81 11/23/20 18:15 87 26 102/33 (56) 70 11/23/20 18:00 102/33 11/23/20 18:00 88 27 95/35 (55) 66 11/23/20 17:45 84 20 78/28 (45) 67 11/23/20 17:30 89 23 79/32 (48) 61 11/23/20 17:15 90 23 86/36 (53) 70 11/23/20 17:00 86/36 11/23/20 17:00 91 22 106/32 (56) 72 11/23/20 16:45 91 20 103/33 (56) 71 11/23/20 16:30 91 22 107/33 (57) 73 11/23/20 16:15 90 18 108/35 (59) 75 11/23/20 16:00 91 11/23/20 16:00 91 16 103/38 (59) 11/23/20 16:00 100 11/23/20 16:00 98.6 11/23/20 16:00 108/35 11/23/20 16:00 Mechanical Ventilator 11/23/20 15:30 92 30 95/29 (51) 75 11/23/20 15:00 95/29 11/23/20 15:00 91 28 97/27 (50) 75 11/23/20 14:30 90 25 97/27 (50) 82 11/23/20 14:00 87 20 92/28 (49) 81 11/23/20 14:00 92/28 11/23/20 13:50 59/23 11/23/20 13:30 92 25 54/20 (31) 71 11/23/20 13:29 99 26 100 11/23/20 13:00 96 23 73/34 (47) 79 11/23/20 13:00 73/34 11/23/20 12:15 83 26 99/31 (53) 79 11/23/20 12:00 Mechanical Ventilator 11/23/20 12:00 96 11/23/20 12:00 100 11/23/20 12:00 99/31 11/23/20 12:00 98.3 81 26 101/30 (53) 79 I&O Intake and Output 11/23/20 11/24/20 19:00 07:00 Intake Total 1166 ml 1517.382 ml Output Total 0 ml 0 ml Balance 1166 ml 1517.382 ml IV Total 1006 ml 1257.382 ml Tube Feeding 160 ml 260 ml Output Urine Total 0 ml 0 ml Dressing: saturated Cardiovascular: RSR Respiratory: decreased breath sounds Abdomen: flat, non-tender, present bowel sounds, non-distended Extremities: no tenderness, no cyanosis Laboratory Tests Test 11/23/20 12:10 11/23/20 18:30 11/23/20 21:57 11/24/20 00:15 POC Whole Blood Glucose Pending 243 MG/DL (74-106) H Pending Pending Test 11/24/20 04:50 11/24/20 05:44 11/24/20 08:30 White Blood Count 25.2 K/UL (4.8-10.8) *H Red Blood Count 2.74 M/UL (4.70-6.10) L Hemoglobin 8.5 G/DL (14.2-18.0) L Hematocrit 28.5 % (42.0-52.0) L Mean Corpuscular Volume 104 FL (80-99) H Mean Corpuscular Hemoglobin 31.1 PG (27.0-31.0) H Mean Corpuscular Hemoglobin Concent 29.9 G/DL (32.0-36.0) L Red Cell Distribution Width 15.6 % (11.6-14.8) H Platelet Count 74 K/UL (150-450) L Mean Platelet Volume 11.0 FL (6.5-10.1) H Neutrophils (%) (Auto) % (45.0-75.0) Lymphocytes (%) (Auto) % (20.0-45.0) Monocytes (%) (Auto) % (1.0-10.0) Eosinophils (%) (Auto) % (0.0-3.0) Basophils (%) (Auto) % (0.0-2.0) Differential Total Cells Counted 100 Neutrophils % (Manual) 94 % (45-75) H Lymphocytes % (Manual) 3 % (20-45) L Monocytes % (Manual) 3 % (1-10) Eosinophils % (Manual) 0 % (0-3) Basophils % (Manual) 0 % (0-2) Band Neutrophils 0 % (0-8) Platelet Estimate Decreased L Platelet Morphology Normal Hypochromasia 1+ Anisocytosis 1+ Macrocytosis 1+ Sodium Level 133 MMOL/L (136-145) L Potassium Level 7.1 MMOL/L (3.5-5.1) #*H Chloride Level 100 MMOL/L (98-107) Carbon Dioxide Level 19 MMOL/L (21-32) L Anion Gap 14 mmol/L (5-15) Blood Urea Nitrogen 124 mg/dL (7-18) H Creatinine 4.3 MG/DL (0.55-1.30) H Estimat Glomerular Filtration Rate 13.2 mL/min (>60) Glucose Level 244 MG/DL (74-106) #H Calcium Level 6.6 MG/DL (8.5-10.1) L Phosphorus Level 14.2 MG/DL (2.5-4.9) H Magnesium Level 2.4 MG/DL (1.8-2.4) Total Bilirubin 0.8 MG/DL (0.2-1.0) Aspartate Amino Transf (AST/SGOT) 1943 U/L (15-37) H Alanine Aminotransferase (ALT/SGPT) 1448 U/L (12-78) H Alkaline Phosphatase 232 U/L (46-116) H Total Protein 4.6 G/DL (6.4-8.2) L Albumin 1.4 G/DL (3.4-5.0) L Globulin 3.2 g/dL Albumin/Globulin Ratio 0.4 (1.0-2.7) L POC Whole Blood Glucose Pending 207 MG/DL (74-106) H Plan Problems: (1) ARDS (adult respiratory distress syndrome) Assessment & Plan: 84-year-old male who pressor insufficiency ARDS Covid on vent ET tube in place chest x-ray reviewed central line in place on sedation. Continue daily weaning trials. NG tube okay for diet tube feeds continue. Microbiology reviewed labs reviewed. Trend labs. IV fluids. Will follow with recommendations thank you for let me participate patient's care cxr stable on abx covid + cont abx cont f wean as tolerated DAILY ESTIMATED NEEDS: Needs based on Critcal care 82.4kg abw 22-28 kcals/kg 7714-5038 total kcals 1.2-2 g protein/kg 99-165 g total protein 20-25/ or per MD mL/kg 2360-9134 total fluid mLs NUTRITION DIAGNOSIS: Swallowing difficulty r/t respiratory status as evidenced by 84 y/o M adm w/ covid++, now orally intubated, NPO. ENTERAL NUTRITION RECOMMENDATIONS: VITAL 1.2 GOAL OF 65ml/hr x24 hrs to provide 1560ml, 1872 kcal, 117g pro, 1265ml free H2O - When hemodynamically stable, rec to start non oral feeds to meet est kcal and pro needs. - Start Vital 1.2 @35ml/hr for 6 hrs, advance as tolerated 10ml/hr q4-6 hrs to goal. - Flush per MD. HOB over 30 degrees ADDITIONAL RECOMMENDATIONS: 1) Maintain calibrated bed scale wts 2) Followed by end, monitor for hypoglycemia while NPO 3) Feed when hemodynamically stable, TF recs as above for critical care, carb control, high pro content to meet est needs 4) Re-evaluate TF w/ change in propofol rate-> current rate w/ TF's do NOT exceed est needs. (2) Hypoxemia (3) Renal failure (4) Elevated troponin (5) COVID-19 Assessment & Plan: ++ on abx tx per Tommie Teague Nov 24, 2020 11:53
--- NOTE | 2020-11-24 12:30 | NUR ---
NURSE NOTES: Pt maxed on Levophed and Dopamine at this time. B/P currently 47/12. Vasopressin ordered and pharmacy informed to mix the medication STAT d/t pt's declining condition.
--- NOTE | 2020-11-24 12:42 | Neurology Progress Note ---
Interim History Interim History ROS Limited/Unobtainable: Yes Events: status deterioating hypotensive Objective Physical Exam Last Vital Signs Date Time Temp Pulse Resp B/P (MAP) Pulse Ox O2 Delivery O2 Flow Rate FiO2 11/24/20 12:23 121 18 47/12 (24) 80 11/24/20 12:00 97.6 11/24/20 12:00 Mechanical Ventilator 11/24/20 12:00 100 Laboratory Tests Test 11/23/20 18:30 11/23/20 21:57 11/24/20 00:15 11/24/20 04:50 POC Whole Blood Glucose 243 MG/DL (74-106) H Pending Pending White Blood Count 25.2 K/UL (4.8-10.8) *H Red Blood Count 2.74 M/UL (4.70-6.10) L Hemoglobin 8.5 G/DL (14.2-18.0) L Hematocrit 28.5 % (42.0-52.0) L Mean Corpuscular Volume 104 FL (80-99) H Mean Corpuscular Hemoglobin 31.1 PG (27.0-31.0) H Mean Corpuscular Hemoglobin Concent 29.9 G/DL (32.0-36.0) L Red Cell Distribution Width 15.6 % (11.6-14.8) H Platelet Count 74 K/UL (150-450) L Mean Platelet Volume 11.0 FL (6.5-10.1) H Neutrophils (%) (Auto) % (45.0-75.0) Lymphocytes (%) (Auto) % (20.0-45.0) Monocytes (%) (Auto) % (1.0-10.0) Eosinophils (%) (Auto) % (0.0-3.0) Basophils (%) (Auto) % (0.0-2.0) Differential Total Cells Counted 100 Neutrophils % (Manual) 94 % (45-75) H Lymphocytes % (Manual) 3 % (20-45) L Monocytes % (Manual) 3 % (1-10) Eosinophils % (Manual) 0 % (0-3) Basophils % (Manual) 0 % (0-2) Band Neutrophils 0 % (0-8) Platelet Estimate Decreased L Platelet Morphology Normal Hypochromasia 1+ Anisocytosis 1+ Macrocytosis 1+ Sodium Level 133 MMOL/L (136-145) L Potassium Level 7.1 MMOL/L (3.5-5.1) #*H Chloride Level 100 MMOL/L (98-107) Carbon Dioxide Level 19 MMOL/L (21-32) L Anion Gap 14 mmol/L (5-15) Blood Urea Nitrogen 124 mg/dL (7-18) H Creatinine 4.3 MG/DL (0.55-1.30) H Estimat Glomerular Filtration Rate 13.2 mL/min (>60) Glucose Level 244 MG/DL (74-106) #H Calcium Level 6.6 MG/DL (8.5-10.1) L Phosphorus Level 14.2 MG/DL (2.5-4.9) H Magnesium Level 2.4 MG/DL (1.8-2.4) Total Bilirubin 0.8 MG/DL (0.2-1.0) Aspartate Amino Transf (AST/SGOT) 1943 U/L (15-37) H Alanine Aminotransferase (ALT/SGPT) 1448 U/L (12-78) H Alkaline Phosphatase 232 U/L (46-116) H Total Protein 4.6 G/DL (6.4-8.2) L Albumin 1.4 G/DL (3.4-5.0) L Globulin 3.2 g/dL Albumin/Globulin Ratio 0.4 (1.0-2.7) L Test 11/24/20 05:44 11/24/20 08:30 POC Whole Blood Glucose Pending 207 MG/DL (74-106) H Neurologic Exam Objective VITAL SIGNS: Reviewed GENERAL: For general physical examination, please refer to other physicians' examination for details. NEUROLOGIC: Mental status -not responding he does not follow commands. He is currently intubated. Obtunded. Motor examination, no movements. No gag reflux Impression/Recommendations Status: stable Diagnostic Impression ASSESSMENT: 1. Acute metabolic encephalopathy, no change 2. Respiratory failure. 3. COVID-19 infection. 4. Diabetes mellitus. 5. Hypertension. 6. Hyperkalemia. 7. CKD. 8. Metabolic acidosis. Recommendations DISCUSSION AND PLAN: The patient presented with COVID-19 infection and has respiratory failure. His change in mental status was likely due to his multiple medical and electrolyte abnormalities. He has not had any imaging study of his brain. He is now DNR we will hold off on ordering any imaging. We will continue to monitor his neurological status during this hospitalization and provide further recommendations as necessary. As of now he has a poor prognosis and family has decided on DNR code status. Plan of care was discussed Dr. Drew who has seen patient with me. Thank you for allowing us to participate in the care of this patient. Tessie Greco NP Nov 24, 2020 12:42
[2020-11-24] MEDS: cefTRIAXone 1 GM in D5W 55 ML IVPB SCH (13:04)
[2020-11-24] MEDS ORDERED: Vasopressin 100 UNITS in NS 95 ML IV SCH (13:30)
--- NOTE | 2020-11-24 14:00 | NUR ---
NURSE NOTES: Pt remains unstable. Pt is maxed on 3 pressors, Levophed, Vasopressin, and Dopamine. SBP remains in the 50's. Pts skin appears pale and ashened. Dr Macdonald spoke to pt's son and updated him on pt's current condition.
--- NOTE | 2020-11-24 15:13 | Pulmonology Progress Note ---
Subjective ROS Limited/Unobtainable: Yes Interval Events: s/p HD Constitutional: Denies: fever HEENT: Repors: no symptoms Respiratory: Reports: no symptoms Cardiovascular: Reports: no symptoms Gastrointestinal/Abdominal: Reports: no symptoms Genitourinary: Reports: no symptoms Allergies: Coded Allergies: No Known Allergies (Unverified , 11/06/20) Objective Last 24 Hour Vital Signs Date Time Temp Pulse Resp B/P (MAP) Pulse Ox O2 Delivery O2 Flow Rate FiO2 11/24/20 14:27 55/34 11/24/20 14:26 55/34 11/24/20 13:15 92 18 40/22 (28) 80 11/24/20 13:04 103 18 41/23 (29) 80 11/24/20 13:00 38/11/24/20 13:00 89 18 / (30) 80 11/24/20 12:45 123 18 48/22 (31) 80 11/24/20 12:43 57/21 11/24/20 12:30 123 18 57/ (33) 80 11/24/20 12:23 121 18 47/12 (24) 80 11/24/20 12:00 67/16 11/24/20 12:00 122 11/24/20 12:00 97.6 111 18 67/16 (33) 80 11/24/20 12:00 Mechanical Ventilator 11/24/20 12:00 100 11/24/20 11:30 108 18 59/44 (49) 80 11/24/20 11:00 68/35 11/24/20 11:00 102 10 68/35 (46) 87 11/24/20 10:32 78/58 11/24/20 10:30 104 12 78/58 (65) 87 11/24/20 10:15 102 18 82/47 (59) 87 11/24/20 10:00 101 15 90/54 (66) 87 11/24/20 10:00 90/54 11/24/20 09:45 108 31 74/46 (55) 87 11/24/20 09:32 55/14 11/24/20 09:30 102 25 138/33 (68) 87 11/24/20 09:24 97 32 121/29 (59) 87 11/24/20 09:15 53 17 54/30 (38) 87 11/24/20 09:00 53 17 55/14 (28) 87 11/24/20 09:00 55/14 11/24/20 08:41 47 18 79/46 (57) 87 11/24/20 08:30 68 11 73/31 (45) 87 11/24/20 08:00 98.1 67 12 83/33 (50) 87 11/24/20 08:00 Mechanical Ventilator 11/24/20 08:00 83/33 11/24/20 08:00 100 11/24/20 08:00 92 11/24/20 07:47 78 18 100 11/24/20 07:30 67 15 94/26 (48) 87 11/24/20 07:00 66 18 81/43 (56) 87 11/24/20 07:00 81/43 11/24/20 06:36 98/22 11/24/20 06:00 65 21 98/22 (47) 95 11/24/20 05:00 92/33 11/24/20 05:00 63 17 92/33 (52) 91 11/24/20 04:31 68 11/24/20 04:00 98.6 78 19 79/46 (57) 88 11/24/20 04:00 100 11/24/20 04:00 74/20 11/24/20 04:00 Mechanical Ventilator 11/24/20 03:00 82 19 91/28 (49) 88 11/24/20 03:00 89/35 11/24/20 02:00 76 20 85/23 (43) 84 11/24/20 02:00 88/30 11/24/20 01:57 99/27 11/24/20 01:26 85 28 100 11/24/20 01:00 97/33 11/24/20 01:00 85 21 101/26 (51) 77 11/24/20 00:00 99.5 83 23 98/25 (49) 72 11/24/20 00:00 100 11/24/20 00:00 98/27 11/24/20 00:00 Mechanical Ventilator 11/23/20 23:37 83 11/23/20 23:00 87 17 99/28 (51) 83 11/23/20 23:00 113/28 11/23/20 22:00 94/27 11/23/20 22:00 88 20 94/27 (49) 79 11/23/20 21:00 86 25 96/27 (50) 72 11/23/20 20:26 78/28 11/23/20 20:00 99.0 85 29 99/30 (53) 66 11/23/20 20:00 100 11/23/20 20:00 Mechanical Ventilator 11/23/20 19:30 84 31 94/29 (50) 65 11/23/20 19:26 85 11/23/20 19:16 88 31 100 11/23/20 19:15 88 25 99/30 (53) 79 11/23/20 19:00 88 26 99/30 (53) 80 11/23/20 19:00 99/30 11/23/20 18:45 88 27 98/28 (51) 75 11/23/20 18:30 87 21 86/28 (47) 81 11/23/20 18:15 87 26 102/33 (56) 70 11/23/20 18:00 102/33 11/23/20 18:00 88 27 95/35 (55) 66 11/23/20 17:45 84 20 78/28 (45) 67 11/23/20 17:30 89 23 79/32 (48) 61 11/23/20 17:15 90 23 86/36 (53) 70 11/23/20 17:00 86/36 11/23/20 17:00 91 22 106/32 (56) 72 11/23/20 16:45 91 20 103/33 (56) 71 11/23/20 16:30 91 22 107/33 (57) 73 11/23/20 16:15 90 18 108/35 (59) 75 11/23/20 16:00 91 11/23/20 16:00 91 16 103/38 (59) 11/23/20 16:00 100 11/23/20 16:00 98.6 11/23/20 16:00 108/35 11/23/20 16:00 Mechanical Ventilator 11/23/20 15:30 92 30 95/29 (51) 75 Intake and Output 11/23/20 11/24/20 19:00 07:00 Intake Total 1166 ml 1517.382 ml Output Total 0 ml 0 ml Balance 1166 ml 1517.382 ml IV Total 1006 ml 1257.382 ml Tube Feeding 160 ml 260 ml Output Urine Total 0 ml 0 ml Objective on vent General Appearance: no acute distress HEENT: normocephalic Respiratory: chest wall non-tender, lungs clear Cardiovascular: normal peripheral pulses, normal rate Abdomen: normal bowel sounds Laboratory Tests 11/23/20 18:30: POC Whole Blood Glucose 243H 11/23/20 21:57: POC Whole Blood Glucose [Pending] 11/24/20 00:15: POC Whole Blood Glucose [Pending] 11/24/20 04:50: White Blood Count 25.2*H, Red Blood Count 2.74L, Hemoglobin 8.5L, Hematocrit 28.5L, Mean Corpuscular Volume 104H, Mean Corpuscular Hemoglobin 31.1H, Mean Corpuscular Hemoglobin Concent 29.9L, Red Cell Distribution Width 15.6H, Platelet Count 74L, Mean Platelet Volume 11.0H, Neutrophils (%) (Auto) , Lymphocytes (%) (Auto) , Monocytes (%) (Auto) , Eosinophils (%) (Auto) , Basophils (%) (Auto) , Differential Total Cells Counted 100, Neutrophils % (Manual) 94H, Lymphocytes % (Manual) 3L, Monocytes % (Manual) 3, Eosinophils % (Manual) 0, Basophils % (Manual) 0, Band Neutrophils 0, Platelet Estimate DecreasedL, Platelet Morphology Normal, Hypochromasia 1+, Anisocytosis 1+, Macrocytosis 1+, Sodium Level 133L, Potassium Level 7.1#*H, Chloride Level 100, Carbon Dioxide Level 19L, Anion Gap 14, Blood Urea Nitrogen 124H, Creatinine 4.3H, Estimat Glomerular Filtration Rate 13.2, Glucose Level 244#H, Calcium Leve l 6.6L, Phosphorus Level 14.2H, Magnesium Level 2.4, Total Bilirubin 0.8, Aspartate Amino Transf (AST/SGOT) 1943H, Alanine Aminotransferase (ALT/SGPT) 1448H, Alkaline Phosphatase 232H, Total Protein 4.6L, Albumin 1.4L, Globulin 3.2, Albumin/Globulin Ratio 0.4L 11/24/20 05:44: POC Whole Blood Glucose [Pending] 11/24/20 08:30: POC Whole Blood Glucose 207H 11/24/20 13:13: POC Whole Blood Glucose 259H Current Medications Medications (Trade) Dose Ordered Sig/Violet Route PRN Reason Start Time Stop Time Status Last Admin Dose Admin Acetaminophen (Tylenol) 650 mg Q4H PRN GT Temp >100.5 11/12/20 11:00 12/12/20 10:44 11/18/20 14:55 Ceftriaxone Sodium 1 gm/ Dextrose 55 ml @ 110 mls/hr Q24H IVPB 11/21/20 14:00 11/28/20 13:59 11/24/20 13:04 Chlorhexidine Gluconate (Patt-Hex 2%) 1 applic DAILY@2000 TOPIC 11/17/20 20:00 02/15/21 19:59 11/23/20 20:00 Dextrose 1,000 ml @ 75 mls/hr [id number] IV 11/20/20 22:30 12/20/20 22:29 11/24/20 05:45 Dextrose (Dextrose 50%) 25 ml Q30M PRN IV Hypoglycemia 11/06/20 20:00 02/04/21 19:59 Dextrose (Dextrose 50%) 50 ml Q30M PRN IV Hypoglycemia 11/06/20 20:00 02/04/21 19:59 Docusate Sodium (Colace) 100 mg EVERY 12 HOURS GT 11/17/20 21:00 12/14/20 17:59 11/24/20 08:22 Dopamine HCl/ Dextrose 250 ml @ 0 mls/hr Q24H IV 11/22/20 21:00 11/25/20 21:00 11/24/20 14:26 Fluconazole (Diflucan) 100 mg DAILY GT 11/21/20 13:30 11/28/20 13:29 11/24/20 08:22 Flumazenil (Romazicon) 0.2 mg NEEDED PRN IV Sedation reversal 11/06/20 20:00 Insulin Aspart (NovoLOG) EVERY 6 HOURS SUBQ 11/08/20 12:00 02/05/21 16:29 11/24/20 13:24 Insulin Detemir (Levemir) 20 units EVERY 12 HOURS SUBQ 11/19/20 21:00 02/05/21 20:59 11/24/20 09:35 Methylprednisolone Sodium Succinate (Solu-MEDROL) 40 mg EVERY 12 HOURS IVP 11/18/20 12:30 02/16/21 12:29 11/24/20 08:22 Metoclopramide HCl (Reglan) 5 mg Q6HR IVP 11/14/20 12:26 12/14/20 12:25 11/24/20 13:03 Naloxone HCl (Narcan) 0.4 mg NEEDED PRN IVP RR less than 6/min 11/06/20 20:00 02/04/21 19:59 Norepinephrine Bitartrate 250 ml @ 7.5 mls/hr Q24H IV 11/24/20 09:00 11/27/20 08:58 11/24/20 14:27 Ondansetron HCl (Zofran) 4 mg Q6H PRN IVP Nausea & Vomiting 11/06/20 20:00 12/06/20 19:59 Pantoprazole (Protonix) 40 mg DAILY IVP 11/08/20 09:00 12/08/20 08:59 11/24/20 08:22 Polyethylene Glycol (Miralax) 17 gm BEDTIME GT 11/14/20 21:00 12/14/20 20:59 11/20/20 19:46 Sevelamer Carbonate (Renvela) 2,400 mg THREE TIMES A DAY NG 11/24/20 09:00 02/22/21 08:59 11/24/20 13:03 Vasopressin 100 units/Sodium Chloride 100 ml @ 0.6 mls/hr Q24H IV 11/24/20 13:30 11/27/20 13:29 11/24/20 13:03 Assessment/Plan Assessment/Plan 1. COVID-19 pneumonia. 2. Diabetes mellitus. 3. Hypertension. 4. Hyperkalemia. 5. CKD. 6. Metabolic acidosis. 7. Respiratory Failure; Acute Lung Injury 9. AMS; very poorly responsive 10. anemia DISCUSSION: Continue broad-spectrum antibiotics. Continue vent/AC mode Currently FiO2 100%; Continue current rate and volumes ABG reviewed; has combined respiratory and metabolic acidosis -> bicarb drip was DC'd PEEP decreased to 10 Endo tracheal tube adjusted again Had to be repositioned; leaking cuff noted CXR shows fine appearing interstitial infiltrates Suspect either secondary infection or fluid Will continue Vanco and fluconazole Agree with HD -> dialysis Blood sugar control, Continue Decadron -> now on Solu-Medrol Off propofol Check labs and ABG AM CXR unchanged Noted neurology evaluation Now DNR Angelo Wiley Nov 24, 2020 15:13
--- NOTE | 2020-11-24 15:25 | NUR ---
NURSE NOTES: Pt consistently bradycardic in the 30's, at times dropping to the 20's. Pulse present, however faint. All three pressors continue to run. secured entrance monitor no longer able to filler picker an accurate B/P
--- NOTE | 2020-11-24 16:13 | Nephrology Progress Note ---
Assessment/Plan Plan #SAMEER on CKD- likely pre-renal azotemia in the setting of sepsis- now progressing to ATN - concerns for #hypnatremia # acute hypoxemia Resp failure 2/2 covid PNA requiring BIPAP # Covid PNA # Lactic acid elevation # Malnutrition #HTN, current normotensive # elevated D dimer # Trop elevated # DM2 uncontrolled s/p HD yesterday - again terminated early due to hemodynamic instability + hyper K + hyper phos wont tolerated HD due to hemodynamic instability increasing pressor requirement poor prognosis - intubated - monitor volume status - monitor ABG - monitor BMP, mag and phos daily - strict I&Os - daily weights - echo - defer renal US - antibiotic per ID time spent 65min Subjective Subjective s/p HD yesterday - again terminated early due to hemodynamic instability + hyper K + hyper phos wont tolerated HD due to hemodynamic instability increasing pressor requirement poor prognosis Objective Objective Last 24 Hour Vital Signs Date Time Temp Pulse Resp B/P (MAP) Pulse Ox O2 Delivery O2 Flow Rate FiO2 11/24/20 16:00 100 11/24/20 16:00 Mechanical Ventilator 11/24/20 15:00 60/39 11/24/20 15:00 37 18 59/24 (36) 80 11/24/20 14:45 40 18 59/24 (36) 80 11/24/20 14:30 36 18 60/39 (46) 80 11/24/20 14:27 55/34 11/24/20 14:26 55/34 11/24/20 14:22 42 18 55/34 (41) 80 11/24/20 14:00 107 18 59/26 (37) 80 11/24/20 14:00 59/26 11/24/20 13:15 92 18 40/22 (28) 80 11/24/20 13:04 103 18 41/23 (29) 80 11/24/20 13:00 38/26 11/24/20 13:00 89 18 38/26 (30) 80 11/24/20 12:45 123 18 48/22 (31) 80 11/24/20 12:43 57/21 11/24/20 12:30 123 18 57/ (33) 80 11/24/20 12:23 121 18 47/12 (24) 80 11/24/20 12:00 67/16 11/24/20 12:00 122 11/24/20 12:00 97.6 111 18 67/16 (33) 80 11/24/20 12:00 Mechanical Ventilator 11/24/20 12:00 100 11/24/20 11:30 108 18 59/44 (49) 80 11/24/20 11:00 68/35 11/24/20 11:00 102 10 68/35 (46) 87 11/24/20 10:32 78/58 11/24/20 10:30 104 12 78/58 (65) 87 11/24/20 10:15 102 18 82/47 (59) 87 11/24/20 10:00 101 15 90/54 (66) 87 11/24/20 10:00 90/54 11/24/20 09:45 108 31 74/46 (55) 87 11/24/20 09:32 55/14 11/24/20 09:30 102 25 138/33 (68) 87 11/24/20 09:24 97 32 121/29 (59) 87 11/24/20 09:15 53 17 54/30 (38) 87 11/24/20 09:00 53 17 55/14 (28) 87 11/24/20 09:00 55/14 11/24/20 08:41 47 18 79/46 (57) 87 11/24/20 08:30 68 11 73/31 (45) 87 11/24/20 08:00 98.1 67 12 83/33 (50) 87 11/24/20 08:00 Mechanical Ventilator 11/24/20 08:00 83/33 11/24/20 08:00 100 11/24/20 08:00 92 11/24/20 07:47 78 18 100 11/24/20 07:30 67 15 94/26 (48) 87 11/24/20 07:00 66 18 81/43 (56) 87 11/24/20 07:00 81/43 11/24/20 06:36 98/22 11/24/20 06:00 65 21 98/22 (47) 95 11/24/20 05:00 92/33 11/24/20 05:00 63 17 92/33 (52) 91 11/24/20 04:31 68 11/24/20 04:00 98.6 78 19 79/46 (57) 88 11/24/20 04:00 100 11/24/20 04:00 74/20 11/24/20 04:00 Mechanical Ventilator 11/24/20 03:00 82 19 91/28 (49) 88 11/24/20 03:00 89/35 11/24/20 02:00 76 20 85/23 (43) 84 11/24/20 02:00 88/30 11/24/20 01:57 99/27 11/24/20 01:26 85 28 100 11/24/20 01:00 97/33 11/24/20 01:00 85 21 101/26 (51) 77 11/24/20 00:00 99.5 83 23 98/25 (49) 72 11/24/20 00:00 100 11/24/20 00:00 98/27 11/24/20 00:00 Mechanical Ventilator 11/23/20 23:37 83 11/23/20 23:00 87 17 99/28 (51) 83 11/23/20 23:00 113/28 11/23/20 22:00 94/27 11/23/20 22:00 88 20 94/27 (49) 79 11/23/20 21:00 86 25 96/27 (50) 72 11/23/20 20:26 78/28 11/23/20 20:00 99.0 85 29 99/30 (53) 66 11/23/20 20:00 100 11/23/20 20:00 Mechanical Ventilator 11/23/20 19:30 84 31 94/29 (50) 65 11/23/20 19:26 85 11/23/20 19:16 88 31 100 11/23/20 19:15 88 25 99/30 (53) 79 11/23/20 19:00 88 26 99/30 (53) 80 11/23/20 19:00 99/30 11/23/20 18:45 88 27 98/28 (51) 75 11/23/20 18:30 87 21 86/28 (47) 81 11/23/20 18:15 87 26 102/33 (56) 70 11/23/20 18:00 102/33 11/23/20 18:00 88 27 95/35 (55) 66 11/23/20 17:45 84 20 78/28 (45) 67 11/23/20 17:30 89 23 79/32 (48) 61 11/23/20 17:15 90 23 86/36 (53) 70 11/23/20 17:00 86/36 11/23/20 17:00 91 22 106/32 (56) 72 11/23/20 16:45 91 20 103/33 (56) 71 11/23/20 16:30 91 22 107/33 (57) 73 11/23/20 16:15 90 18 108/35 (59) 75 Intake and Output 11/23/20 11/24/20 19:00 07:00 Intake Total 1166 ml 1517.382 ml Output Total 0 ml 0 ml Balance 1166 ml 1517.382 ml IV Total 1006 ml 1257.382 ml Tube Feeding 160 ml 260 ml Output Urine Total 0 ml 0 ml Laboratory Tests 11/23/20 18:30: POC Whole Blood Glucose 243H 11/23/20 21:57: POC Whole Blood Glucose [Pending] 11/24/20 00:15: POC Whole Blood Glucose [Pending] 11/24/20 04:50: White Blood Count 25.2*H, Red Blood Count 2.74L, Hemoglobin 8.5L, Hematocrit 28.5L, Mean Corpuscular Volume 104H, Mean Corpuscular Hemoglobin 31.1H, Mean Corpuscular Hemoglobin Concent 29.9L, Red Cell Distribution Width 15.6H, Platelet Count 74L, Mean Platelet Volume 11.0H, Neutrophils (%) (Auto) , Lymphocytes (%) (Auto) , Monocytes (%) (Auto) , Eosinophils (%) (Auto) , Basophils (%) (Auto) , Differential Total Cells Counted 100, Neutrophils % (Manual) 94H, Lymphocytes % (Manual) 3L, Monocytes % (Manual) 3, Eosinophils % (Manual) 0, Basophils % (Manual) 0, Band Neutrophils 0, Platelet Estimate Decr easedL, Platelet Morphology Normal, Hypochromasia 1+, Anisocytosis 1+, Macrocytosis 1+, Sodium Level 133L, Potassium Level 7.1#*H, Chloride Level 100, Carbon Dioxide Level 19L, Anion Gap 14, Blood Urea Nitrogen 124H, Creatinine 4.3H, Estimat Glomerular Filtration Rate 13.2, Glucose Level 244#H, Calcium Level 6.6L, Phosphorus Level 14.2H, Magnesium Level 2.4, Total Bilirubin 0.8, Aspartate Amino Transf (AST/SGOT) 1943H, Alanine Aminotransferase (ALT/SGPT) 1448H, Alkaline Phosphatase 232H, Total Protein 4.6L, Albumin 1.4L, Globulin 3.2, Albumin/Globulin Ratio 0.4L 11/24/20 05:44: POC Whole Blood Glucose [Pending] 11/24/20 08:30: POC Whole Blood Glucose 207H 11/24/20 13:13: POC Whole Blood Glucose 259H Height (Feet): 6 Height (Inches): 1.00 Weight (Pounds): 190 Objective General Appearance: other - intubated EENT: PERRL/EOMI, normal ENT inspection Neck: non-tender, normal alignment Cardiovascular: normal peripheral pulses, tachycardia Respiratory/Chest: chest wall non-tender, rhonchi - bilaterally Abdomen: normal bowel sounds, non tender Extremities: pitting Neurologic: unresponsive Kulwant Hong M.D. Nov 24, 2020 16:13
[2020-11-24] MEDS ORDERED: Tubing IV Secondary IV ONE ×2 (16:50)
[2020-11-24] MEDS ORDERED: D5W 550ml IV ONE ×2 (16:50)
[2020-11-24] MEDS ORDERED: NS 275ml ONE ×2 (16:50)
--- NOTE | 2020-11-24 16:51 | NUR ---
NURSE NOTES: Pt HR steadily decreased from the 20's to showing asystole on case monitor. No pulse present upon assessment. ER doctor pronounced pt at this time.
--- NOTE | 2020-11-24 16:59 | Emergency Room Report ---
Physical Exam Vital Signs Date Time Temp Pulse Resp B/P (MAP) Pulse Ox O2 Delivery O2 Flow Rate FiO2 11/20/20 07:00 103 34 111/36 (61) 90 11/20/20 07:00 100 11/20/20 08:00 Mechanical Ventilator 11/20/20 08:00 98.7 Medical Decision Making Diagnostic Impression: Primary Impression: COVID-19 Additional Impressions: ARDS (adult respiratory distress syndrome) Hypoxemia Renal failure Elevated troponin ER Course Called to ICU to pronounce patient . 84-year-old male on ventilator for hypoxic respiratory failure secondary to COVID-19. Patient experienced asystole prior to my arrival approximately 1642 by rhythm strip. No palpable pulse, no spontaneous movements, no spontaneous breathing, no corneal reflex, no heart sounds present. Patient pronounced at 1651. Admitting physician notified. Last Vital Signs Date Time Temp Pulse Resp B/P (MAP) Pulse Ox O2 Delivery O2 Flow Rate FiO2 11/24/20 16:12 97.0 25 12 45/32 (36) 70 11/24/20 16:00 100 11/24/20 16:00 Mechanical Ventilator Disposition: Condition: Referrals: [facility],REFERRING (PCP) Elmo Gan MD Nov 24, 2020 16:58
--- NOTE | 2020-11-24 17:15 | NUR ---
NURSE NOTES: Dr Macdonald, Dr Gaspar, and Pt's son all informed of pt's . Post mortem care done.
--- NOTE | 2020-11-24 18:49 | General Progress Note ---
Subjective Date patient seen: Nov 24, 2020 Allergies: Coded Allergies: No Known Allergies (Unverified , 11/06/20) Subjective Patient worsening overnight. Max on 3 pressors now. Unable to tolerate HD. Potassium 7.1. Given meds for treatment per nephrology. Spoke with ID who will adjust abx. Poor prognosis. Later in day, patient became bradycardic and . Code status DNR. ER doctor pronounced. Family made aware. ROS: unable to obtain due to ALOC Objective Last 24 Hour Vital Signs Date Time Temp Pulse Resp B/P (MAP) Pulse Ox O2 Delivery O2 Flow Rate FiO2 11/24/20 16:45 0 0 11/24/20 16:30 27 14 83/45 (58) 11/24/20 16:15 23 15 11/24/20 16:12 97.0 25 12 45/32 (36) 70 11/24/20 16:00 39 11/24/20 16:00 100 11/24/20 16:00 45/32 11/24/20 16:00 Mechanical Ventilator 11/24/20 15:33 39 13 75/47 (56) 80 11/24/20 15:00 60/39 11/24/20 15:00 37 18 59/24 (36) 80 11/24/20 14:45 40 18 59/24 (36) 80 11/24/20 14:30 36 18 60/39 (46) 80 11/24/20 14:27 55/34 11/24/20 14:26 55/34 11/24/20 14:22 42 18 55/34 (41) 80 11/24/20 14:02 34 18 100 11/24/20 14:00 107 18 59/26 (37) 80 11/24/20 14:00 59/26 11/24/20 13:15 92 18 40/22 (28) 80 11/24/20 13:04 103 18 41/23 (29) 80 11/24/20 13:00 38/26 11/24/20 13:00 89 18 38/26 (30) 80 11/24/20 12:45 123 18 48/22 (31) 80 11/24/20 12:43 57/21 11/24/20 12:30 123 18 57/21 (33) 80 11/24/20 12:23 121 18 47/12 (24) 80 11/24/20 12:00 67/16 11/24/20 12:00 122 11/24/20 12:00 97.6 111 18 67/16 (33) 80 11/24/20 12:00 Mechanical Ventilator 11/24/20 12:00 100 11/24/20 11:30 108 18 59/44 (49) 80 11/24/20 11:00 68/35 11/24/20 11:00 102 10 68/35 (46) 87 11/24/20 10:32 78/58 11/24/20 10:30 104 12 78/58 (65) 87 11/24/20 10:15 102 18 82/47 (59) 87 11/24/20 10:00 101 15 90/54 (66) 87 11/24/20 10:00 90/54 11/24/20 09:45 108 31 74/46 (55) 87 11/24/20 09:32 55/14 11/24/20 09:30 102 25 138/33 (68) 87 11/24/20 09:24 97 32 121/29 (59) 87 11/24/20 09:15 53 17 54/30 (38) 87 11/24/20 09:00 53 17 55/14 (28) 87 11/24/20 09:00 55/14 11/24/20 08:41 47 18 79/46 (57) 87 11/24/20 08:30 68 11 73/31 (45) 87 11/24/20 08:00 98.1 67 12 83/33 (50) 87 11/24/20 08:00 Mechanical Ventilator 11/24/20 08:00 83/33 11/24/20 08:00 100 11/24/20 08:00 92 11/24/20 07:47 78 18 100 11/24/20 07:30 67 15 94/26 (48) 87 11/24/20 07:00 66 18 81/43 (56) 87 11/24/20 07:00 81/43 11/24/20 06:36 98/22 11/24/20 06:00 65 21 98/22 (47) 95 11/24/20 05:00 92/33 11/24/20 05:00 63 17 92/33 (52) 91 11/24/20 04:31 68 11/24/20 04:00 98.6 78 19 79/46 (57) 88 11/24/20 04:00 100 11/24/20 04:00 74/20 11/24/20 04:00 Mechanical Ventilator 11/24/20 03:00 82 19 91/28 (49) 88 11/24/20 03:00 89/35 11/24/20 02:00 76 20 85/23 (43) 84 11/24/20 02:00 88/30 11/24/20 01:57 99/27 11/24/20 01:26 85 28 100 11/24/20 01:00 97/33 11/24/20 01:00 85 21 101/26 (51) 77 11/24/20 00:00 99.5 83 23 98/25 (49) 72 11/24/20 00:00 100 11/24/20 00:00 98/27 11/24/20 00:00 Mechanical Ventilator 11/23/20 23:37 83 11/23/20 23:00 87 17 99/28 (51) 83 11/23/20 23:00 113/28 11/23/20 22:00 94/27 11/23/20 22:00 88 20 94/27 (49) 79 11/23/20 21:00 86 25 96/27 (50) 72 11/23/20 20:26 78/28 11/23/20 20:00 99.0 85 29 99/30 (53) 66 11/23/20 20:00 100 11/23/20 20:00 Mechanical Ventilator 11/23/20 19:30 84 31 94/29 (50) 65 11/23/20 19:26 85 11/23/20 19:16 88 31 100 11/23/20 19:15 88 25 99/30 (53) 79 11/23/20 19:00 88 26 99/30 (53) 80 11/23/20 19:00 99/30 Intake and Output 11/23/20 11/24/20 19:00 07:00 Intake Total 1166 ml 1517.382 ml Output Total 0 ml 0 ml Balance 1166 ml 1517.382 ml IV Total 1006 ml 1257.382 ml Tube Feeding 160 ml 260 ml Output Urine Total 0 ml 0 ml Laboratory Tests 11/23/20 21:57: POC Whole Blood Glucose [Pending] 11/24/20 00:15: POC Whole Blood Glucose [Pending] 11/24/20 04:50: White Blood Count 25.2*H, Red Blood Count 2.74L, Hemoglobin 8.5L, Hematocrit 28.5L, Mean Corpuscular Volume 104H, Mean Corpuscular Hemoglobin 31.1H, Mean Corpuscular Hemoglobin Concent 29.9L, Red Cell Distribution Width 15.6H, Platelet Count 74L, Mean Platelet Volume 11.0H, Neutrophils (%) (Auto) , Lymphocytes (%) (Auto) , Monocytes (%) (Auto) , Eosinophils (%) (Auto) , Basophils (%) (Auto) , Differential Total Cells Counted 100, Neutrophils % (Manual) 94H, Lymphocytes % (Manual) 3L, Monocytes % (Manual) 3, Eosinophils % (Manual) 0, Basophils % (Manual) 0, Band Neutrophils 0, Platelet Estimate DecreasedL, Platelet Morphology Normal, Hypochromasia 1+, Anisocytosis 1+, Macrocytosis 1+, Sodium Level 133L, Potassium Level 7.1#*H, Chloride Level 100, Carbon Dioxide Level 19L, Anion Gap 14, Blood Urea Nitrogen 124H, Creatinine 4.3H, Estimat Glomerular Filtration Rate 13.2, Glucose Level 244#H, Calcium Level 6.6L, Phosphorus Level 14.2H, Magnesium Level 2.4, Total Bilirubin 0.8, Aspartate Amino Transf (AST/SGOT) 1943H, Alanine Aminotransferase (ALT/SGPT) 1448H, Alkaline Phosphatase 232H, Total Protein 4.6L, Albumin 1.4L, Globulin 3.2, Albumin/Globulin Ratio 0.4L 11/24/20 05:44: POC Whole Blood Glucose [Pending] 11/24/20 08:30: POC Whole Blood Glucose 207H 11/24/20 13:13: POC Whole Blood Glucose 259H Height (Feet): 6 Height (Inches): 1.00 Weight (Pounds): 190 Objective Exam limited due to COVID status and to conserve PPE. Per discussion with RN. General: Male A&o x 0 On intubated, sedated, moving extremities spontaneously off sedation HEENT: Normocephalic cephalic atraumatic, pupils equal round reactive to light and accommodation, nares patent and no symmetrical, no tonsillar exudates, mucous membranes moist CV: Regular rate regular rhythm, no murmurs, rubs, or gallops Pulm: Lungs coarse breath sounds bilaterally. No wheezes, rhonchi, or rales GI: Soft, nontender, nondistended, bowel sounds present Neuro: Moving all extremities, PERRLA, no focal signs Ext: No lower extremity edema bilaterally Skin: no rashes lesions or ulcers Msk: Joints symmetrical in upper extremity and lower extremity bilaterally, no joint swelling. Lymph: No lymphadenopathy in upper extremity and lower extremity Assessment/Plan Status: deteriorating Assessment/Plan: 84 yo M w DM2, HTN, ? CKD admitted for Covid19 PNA with SAMEER: #Septic shock #Acute hypoxemia Resp failure 2/2 covid PNA - + , Intubated # Covid PNA - #Pneumomediastinum #leukocytosis- worsening. Steroid induced? - now improving Appreciate ID/Pulm - S/P CVC placement - AB now are Rocephin and Fluconazole per ID (s/p Vanco) - Abx per ID - Continue Solumedrol IV - CXR with improvement with pneumomediastinum - Pressor support w/ Dopamine, Levophed, and vasopressin - Propfol for Sedation, monitor TG - NG tube 11/07 for meds. start tube feeding - IV fluids per nephro - DVT/GI ppx - s/p decadron 6mg iv daily - s/p Remdesivir per ID (11/09 started) - s/p azithromycin (11/08 started ) - s/p Vancomycin (11/09 started) - family updated of poor prognosis and encouraged to visit hospital #diarrhea, rule out C Diff - C diff ordered. D/w primary team #Acute Renal Failure now Requiring HD #hyperphosphatemia #hyperkalemia -Appreciate Nephro -S/P Ray, Initiate HD 11/20 -Hoping this will help the pulmonary edema/fluid shifting -Douglas Cath; Strict I/O -off lasix drip per Pulm/Nephro #S. hominis bacteremia, Contaminant? Defer to ID Appreciate ID AB as above #Anemia - GI consult Dr. Saavedra - PPI, Monitor for GIB #thrombocytopenia - consider Heme consult - d/w primary team - monitor for signs of bleeding #DM2 uncontrolled - Adjust long acting daily to maintain blood sugar 180 or less - SSI, Accuchecks Q6 w/ tube feeds - Requirements will be increased while on steroids DVTPPX: per primary GI PPX: protonix Fluids: per nephro Diet: NPO, tube feedings PT/OT: deferred Code status:DNAR Dispo: SNF eventually. Guarded prognosis. Family aware Reason for Continued Hospitalization: Hypoxia Time of my involvement, the patient's condition was critical with high potential for and/or physiologic deterioration secondary to septic shock, acute hypoxic respiratory failure as delineated in the note above. On the above date of service, I spent a total of 37 minutes in the ICU evaluating, managing, and providing critical care services to this patient, in cluding time spent documenting these activities, counseling patient/family, and coordinating care. Critical care services performed include: -Telemetry review -Hemodynamic measurement interpretation -Laboratory data review and interpretation -Vent setting reviewed, management -Discussion of care plans with patient, family, and/or surrogate decision makers -Discussion of patient's care with primary medical team, surgical team, and/or consulting service -Decision to obtain further radiologic evaluation, after consideration of the risk/benefit ratio -Review of most recent microbiology results assessment and modification of antimicrobial coverage -Discussion of patient's CODE STATUS and further advancement towards the ultimate goals of care. Plan outlined above discussed with patient/family, [employer], ICU team, and involved physician/consultants. Time of note not necessarily time patient was seen Bakari Lucio D.O. Nov 24, 2020 18:49
--- NOTE | 2020-11-25 15:57 | Discharge Summary ---
Discharge Summary Discharge Summary _ Date of admission: 11/06/2020 Date of expiration: 11/24/2020 History of Present Illness and Brief Hospital Course Mr. Hicks was a 84-year-old male with past medical history of diabetes and hypertension who presented to the ER for 2 weeks history of fatigue, body aches, and generalized weakness. Patient also had associated shortness of breath over the past few days. Patient's family and son were contacted who confirmed pat ient's CODE STATUS to be full code. Patient tested positive for COVID-19. Chest x-ray on 11/06/2020 revealed bilateral extensive diffuse interstitial and airspace disease. He was hypoxic on room air and was given BiPAP and responded well with oxygen saturation improvement in the high 90s in the ER. Patient received Decadron, azithromycin, insulin, and Lovenox and was admitted to ICU for further management. For his COVID-19 pneumonia, he was continued on remdesivir, Decadron, and broad- spectrum antibiotics. Given his worsening respiratory failure, patient was intubated. Ventilator setting was adjusted as necessary. ABG was monitored. We attempted pressure control ventilation for 24 hours. However patient was found to be retaining CO2 and was switched back to volume control. A repeat chest x-ray showed fine-appearing interstitial infiltrates, suspicious for either secondary infection or fluid. Micafungin and vancomycin were added as well as diuresis. Patient was attempted to be weaned down as tolerated. At one point ET tube was found to have cough leak and patient was reintubated. No repeat chest x-ray was performed to confirm proper positioning of ET tube. It was found that ET tube needed further advancement. ET tube was advanced and its placement was confirmed with the repeat chest x-ray. Given his acute renal failure, the decision was made to have hemodialysis to help the pulmonary edema/fluid shifting. Douglas catheter was inserted. Patient was put on strict intake and output as well as Lasix drip. Right femoral temporary hemodialysis catheter was inserted. Patient had dialysis on 11/20/2020, however patient became hypotensive. Dialysis was attempted again but he became hypotensive. Dialysis was terminated due to hemodynamic instability. Patient received nasogastric tube for medications as he was concurrently intubated. Tube feeding was initiated for nutrition. Patient also had history of diabetes mellitus and insulin was initiated for blood glucose control. Hypoglycemia protocol was in place. Patient appeared to have altered mental status on arrival, which was likely due to his multiple medical and electrolyte abnormalities. CT of brain was considered initially. However, due to his change of status to DNR at a later date, imaging was held off. Laboratory studies showed continuously worsening H&H without active bleeding. On 11/21/2020, patient's CODE STATUS changed to DNR per family's wishes. On 11/24/2020 patient's condition worsened overnight. He was already on 3 pressors. Later in the day, patient became bradycardic and . His CODE STATUS was DNR. Cause of : Cardiopulmonary arrest Consultants: Neurology Dr. Drew Gastroenterology Dr. Saavedra Surgery Dr. Barone Infectious disease Dr. White Pulmonology Dr. Gaspar Nephrology Dr. Hong Cardiology Dr. Muñoz Final diagnoses COVID-19 pneumonia Gram-positive sepsis Respiratory failure Elevated lactate Elevated D-dimer Hypertension SAMEER on CKD Hyperkalemia Elevated troponin Diabetes mellitus Malnutrition Acute metabolic encephalopathy Metabolic acidosis Septic shock Pneumomediastinum Leukocytosis Diarrhea Hyperphosphatemia Anemia Thrombocytopenia Altered mental status I have been assigned to dictate discharge summary for this account. Angelo Wiley Nov 25, 2020 15:57
--- NOTE | 2020-11-25 17:51 | NUR ---
INSURANCE DC SUMMARY/INSTRUCTIONS/CLINICALS/REVIEWS FAXED TO [facility] [phone]
--- NOTE | 2020-11-27 02:20 | Cardiology Report ---
APPROVED REPORT EXAM: Two-dimensional and M-mode echocardiogram with Doppler and color Doppler. INDICATION EF M-Mode DIMENSIONS IVSd1.3 (0.7-1.1cm)Left Atrium (MM)3.8 (1.6-4.0cm) LVDd4.5 (3.5-5.6cm)Aortic Root3.1 (2.0-3.7cm) PWd1.7 (0.7-1.1cm)Aortic Cusp Exc.1.6 (1.5-2.0cm) IVSs1.7 cmEPSS0.7 (>1.0cm) LVDs3.1 (2.5-4.0cm) PWs1.8 cm <Conclusion> Technically difficult study due to poor acoustical windows and pt's breathing. Normal left ventricular chamber size, systolic function, & wall motion to extent visualized. Left ventricular ejection fraction estimated to be 65 %. Mild left ventricular hypertrophy. Left ventricular wall motion appears to be hyperdynamic. Anterior Echo-free space, may be due to pericardial fat or effusion. All other cardiac chamber sizes are within normal limits. Focal aortic valve sclerosis with adequate cusp excursion. Thickened mitral valve leaflets with normal excursion. Mitral annulus and aortic root calcification. Pulmonic valve not well visualized. Normal tricuspid valve structure. IVC at normal size with physiologic collapse. A color flow and spectral Doppler study was performed and revealed: Trace aortic regurgitation. Trace mitral regurgitation. Mitral diastolic velocities suggest reduced left ventricular relaxation c/w mild LV diastolic dysfunction (Grade I ). Trace tricuspid regurgitation. Tricuspid systolic velocities suggests peak right ventricular systolic pressure of 17 mmHg. No pulmonic regurgitation present.
--- NOTE | 2020-11-27 02:30 | Cardiology Report ---
APPROVED REPORT EKG Measurement Heart [id number] <Conclusion> Sinus tachycardia Possible Left atrial enlargement Left axis deviation Left ventricular hypertrophy with repolarization abnormality Possible Lateral infarct, age undetermined Abnormal ECG
== END 2020-11-24 16:51 | disposition expired | DRG 870 ==
LOC: EDBD 15:12 → EMR 15:30 → ICU 18:13 → EDBEDREQ 19:06
PROC: 5A1955Z Respiratory Ventilation, Greater than 96 Consecutive Hours (ICD-10-PCS; principal; 2020-11-07)
PROC: 0BH17EZ Insertion of Endotracheal Airway into Trachea, Via Natural or Artificial Opening (ICD-10-PCS; principal; 2020-11-07)
PROC: XW033E5 Introduction of Remdesivir Anti-infective into Peripheral Vein, Percutaneous Approach, New Technology Group 5 (ICD-10-PCS; 2020-11-08)
PROC: 06HM33Z Insertion of Infusion Device into Right Femoral Vein, Percutaneous Approach (ICD-10-PCS; 2020-11-09)
PROC: 02HV33Z Insertion of Infusion Device into Superior Vena Cava, Percutaneous Approach (ICD-10-PCS; 2020-11-18)
PROC: B548ZZA Ultrasonography of Superior Vena Cava, Guidance (ICD-10-PCS; 2020-11-18)
PROC: 5A1D70Z Performance of Urinary Filtration, Intermittent, Less than 6 Hours Per Day (ICD-10-PCS; 2020-11-20)
PROC: 06HM33Z Insertion of Infusion Device into Right Femoral Vein, Percutaneous Approach (ICD-10-PCS; 2020-11-20)
PROC: 0B21XEZ Change Endotracheal Airway in Trachea, External Approach (ICD-10-PCS; 2020-11-23)
DX: A41.89 Other specified sepsis (principal); U07.1 COVID-19; J80 Acute respiratory distress syndrome; R65.21 Severe sepsis with septic shock; J15.5 Pneumonia due to Escherichia coli; N17.0 Acute kidney failure with tubular necrosis; G93.41 Metabolic encephalopathy; J12.82 Pneumonia due to coronavirus disease 2019; N17.9 Acute kidney failure, unspecified; E46 Unspecified protein-calorie malnutrition; Z68.25 Body mass index [BMI] 25.0-25.9, adult; E87.5 Hyperkalemia; E11.65 Type 2 diabetes mellitus with hyperglycemia; I12.9 Hypertensive chronic kidney disease with stage 1 through stage 4 chronic kidney disease, or unspecified chronic kidney disease; E11.22 Type 2 diabetes mellitus with diabetic chronic kidney disease; N18.9 Chronic kidney disease, unspecified; E86.0 Dehydration; D64.9 Anemia, unspecified; R13.10 Dysphagia, unspecified; R19.7 Diarrhea, unspecified; J98.2 Interstitial emphysema; E83.39 Other disorders of phosphorus metabolism; D69.6 Thrombocytopenia, unspecified; Z66 Do not resuscitate
CPT/HCPCS: 36415; 36569; 71045; 74018; 76937; 80048; 80053; 80202; 81003; 82248; 82550; 82553; 82728; 82803; 82962; 83036; 83605; 83615; 83690; 83735; 83880; 84100; 84478; 84484; 84550; 85007; 85025; 85379; 85610; 85730; 86140; 86706; 87040; 87070; 87081; 87086; 87181; 87205; 87324; 93005; 93306; 94002; 94003; 94660; 96365; 96375; 99291; J1815; J2765; J3490; J7030; S5561; U0002